=== PATIENT | male | born 1950 | race Caucasian/White ===

== ENCOUNTER 2020-07-15 14:09 | Outpatient (CLI) | payer MEDICARE, OTHER, SELFPAY | END 2020-07-15 14:10 | disposition home or self-care (01) | LOC: CHSLAB 14:16 | PROVIDERS: PCP Internal Medicine; Visit Provider Specialist | DX: C44.311 Basal cell carcinoma of skin of nose (principal) | CPT/HCPCS: 88305 ==

== ENCOUNTER 2020-09-11 08:28 | Outpatient (CLI) | payer MEDICARE, OTHER, SELFPAY ==
--- NOTE | ~2020-09-11 | US_ITS ---
US abdomen complete EXAMINATION: US Abdomen Complete INDICATION: Right upper quadrant abdominal pain PROCEDURE: Realtime High Resolution abdomen ultrasound. COMPARISON: No prior studies for comparison FINDINGS: Gallbladder surgically absent. Common bile duct measures 7 mm. Liver echotexture is increased, consistent with fatty infiltration.. Pancreas within normal limits. Pancreatic tail is obscured by bowel gas. Spleen is unremarkeable. Renal echotexture is within norm al limits bilaterally without hydronephrosis, contour deforming mass or renal stone. Right kidney steven sures 13.5 cm. Left kidney measures 13.6 cm. Visualized aspects of the aorta and IVC are within normal limits. Portal vein is patent. IMPRESSION: 1: Fatty infiltration of the liver. 2: Status post cholecystectomy with expected prominence of the common bile duct. Reviewed, dictated and finalized at location A. PING AND RECEIVING COORDINATOR IMPRESSION: 1: Fatty infiltration of the liver. 2: Status post cholecystectomy with expected prominence of the common bile vince t.
== END 2020-09-11 08:29 | disposition home or self-care (01) ==
PROVIDERS: PCP Internal Medicine; Visit Provider Internal Medicine
DX: R10.11 Right upper quadrant pain (principal); Z90.49 Acquired absence of other specified parts of digestive tract; K76.0 Fatty (change of) liver, not elsewhere classified
CPT/HCPCS: 76700

== ENCOUNTER 2021-02-07 16:52 | Emergency (ER) | payer MEDICARE, OTHER, SELFPAY ==
--- NOTE | ~2021-02-07 | CT_ITS ---
EXAMINATION: CT abdomen pelvis w con EXAM DATE: 02/07/2021 19:52 INDICATION: Abdominal distention. TECHNIQUE: Spiral CT of the abdomen and pelvis was performed following intravenous injection of 100 m L Omnipaque 350. Axial, coronal and sagittal images of the abdomen and pelvis were reviewed. The do se-length product (DLP) for this examination was 1548.19 mGy-cm. The exposure was tailored according to patient size (auto mA exposure control), and iterative reconstruction (ASIR) was used as addition al dose reduction technique. Comparison is made to prior examination from 10/01/2016. FINDINGS: The liver, spleen, adrenal glands and pancreas are unremarkable. There are cholecystectomy clips. Portal and splenic veins are patent. Kidneys enhance symmetrically. There is no hydronephr osis. The prostate is unremarkable. The bladder is unremarkable. There is no retroperitoneal or p elvic lymphadenopathy. There is mild scattered arteriosclerotic disease. Small bilateral inguinal f at-containing hernias. The appendix is normal. There is mild scattered colonic diverticulosis. There is no adjacent inflamm atory change to suggest diverticulitis. The stomach and small bowel are unremarkable. There is expec pepe amount of colonic stool. No free intraperitoneal gas. The heart is normal in size. There are no pericardial or pleural effusions. Mild basilar intralobular septal thickening, probably mild int erstitial lung disease. Mild basilar bronchiectasis. Bridging thoracic endplate osteophytes with k 12 principal yanelis demineralized appearance to lower thoracic vertebral body centrally. No cortical destruction. IMPRESSION: 1. No acute intra-abdominal findings. 2. Mild colonic diverticulosis. 3. Mild pulmonary fibrosis and bronchiectasis. Reviewed, dictated and finalized at location A.
[2021-02-07 16:55] VITALS: BP 161/104; PULSE 98; RESP 18; TEMP 36.1; O2SAT 99
[2021-02-07 18:37] VITALS: BP 166/105; PULSE 94; RESP 18; O2SAT 98
[2021-02-07 18:43] LABS: Basophils Absolute Auto 0.1 K/mm3 (0.0-0.1); Basophils Percent Auto 0.5 % (0.2-1.2); Eosinophils Absolute Auto 0.4 K/mm3 (0-0.3); Eosinophils Percent Auto 3.8 % (0-4.4); Hematocrit 43.3 % (42.0-52.0); Hemoglobin 13.5 g/dL (14.0-18.0); Immature Granulocyte Absolute 0.03 K/mm3 (0.00-0.031); Immature Granulocyte Percent A 0.3 % (0-0.5); Lymphocytes Absolute Auto 1.36 K/mm3 (0.9-3.2); Lymphocytes Percent Auto 13.9 % (18.3-44.2); Mean Corpuscular HGB Conc 31.2 g/dl (32-36); Mean Corpuscular Hemoglobin 25.9 pg (26-34); Mean Platelet Volume 11.5 fl (7.4-10.4); Monocytes Absolute Auto 1.2 K/mm3 (0.1-0.6); Monocytes Percent Auto 12.2 % (2.6-8.5); Neutrophils Absolute Auto 6.8 K/mm3 (1.3-6.7); Neutrophils Percent Auto 69.3 % (45.5-73.1); Platelet Count Result 229 k/mm3 (150-375); Red Blood Count 5.22 M/mm3 (4.6-6.20); Red Cell Distribution Width 14.8 % (11.5-14.5); White Blood Count 9.8 K/mm3 (4.5-10.0)
[2021-02-07 18:46] LABS: Add Urine Microscopic? YES; Appearance Urine Clear (Clear); Bilirubin Urine Negative (Negative); Blood Urine 1+ (Negative); Color Urine Yellow (Yellow); Glucose Urine UA Negative (Negative); Ketones Urine Negative (Negative); Leukocyte Esterase Ur Negative LEU/UL (Negative); Mucus Urine Rare /lpf; Nitrate Urine Negative (Negative); Protein Urine Negative (Negative); RBC Urine 0-2 /hpf (0-2); Specific Grav Ur 1.011 (1.001-1.035); Urobilinogen Urine Negative mg/dL (<2.0); WBC Urine 0-3 /hpf
[2021-02-07 18:54] LABS: Alanine Aminotransferase 36 U/L (4-50); Albumin Level 4.7 g/dL (3.5-5.1); Alkaline Phosphatase 109 U/L (38-126); Anion Gap 10 mmol/L (8-16); Aspartate Amino Transferase 68 U/L (17-59); Bilirubin,Total 0.8 mg/dL (0.2-1.3); Blood Urea Nitrogen 12 mg/dL (9-20); Calcium 9.7 mg/dL (8.4-10.2); Carbon Dioxide 26 mmol/L (22-30); Chloride 104 mmol/L (98-107); Estimated CRCL calculation 100 ml/min; Estimated Glomerular Filt Rate > 60; Glucose 103 mg/dL (75-110); Lipase 88 U/L (23-300); Potassium 4.1 mmol/L (3.4-5.0); Sodium 140 mmol/L (137-145)
--- NOTE | 2021-02-07 19:13 | PC.NURSE ---
Patient report received from MICAH Everett.Assumed care of patient at this time.
--- NOTE | 2021-02-07 20:08 | ED.NAVMDI ---
HPI - Nausea/Vomiting/Diarrhea General Chief complaint: Nausea/Vomiting/Diarrhea Stated complaint: return of bloating Time Seen by Provider: 02/07/21 18:43 Source: patient Mode of arrival: ambulatory Limitations: no limitations History of Present Illness HPI Narrative: 70-year-old male Presents with several days of a fluctuating chest bloated abdominal sensation He had loose stools at the onset but now has had no bowel movement for about a day and a half although he is passing gas He also reports that he is not eating much because he feels full quickly He says he has had episodes like this previously every couple of years which sometimes resolve if he vomits This is the first time it has happened since he had his gallbladder removed He does not have much in the way of pain No melena He is a non-smoker and he does not drink and takes very little in the way of NSAIDs He does take Nexium usually 3 or 4 times a week and Gas-X Related Data Home Medications Medication Instructions Recorded Confirmed esomeprazole magnesium [Nexium] 20 mg PO DAILY 02/07/21 Allergies Allergy/AdvReac Type Severity Reaction Status Date / Time No Known Allergies Allergy Unverified 02/07/21 18:33 Review of Systems Review of Systems: All systems reviewed & are unremarkable except as noted in HPI and below Constitutional: Constitutional: Reports no additional constitutional complaints, Denies chills, Denies fever(s) and Denies headache(s) Eyes: Eyes: Reports no additional eye complaints and Denies change in vision ENT: Denies headache(s) and Denies sore throat Cardiovascular: Cardiovascular: Denies chest pain and Denies dyspnea Respiratory: Respiratory: Denies cough and Denies dyspnea Gastrointestinal: Gastrointestinal: Denies abdominal pain, Reports bloating, Reports constipation, Reports diarrhea, Reports nausea and Denies vomiting Musculoskeletal: Musculoskeletal: Denies deformity, Denies arthralgias, Denies joint swelling and Denies numbness Integumentary/Breasts: Skin/Breast: Denies rash and Denies wounds Neurologic: Denies headache(s), Denies focal weakness and Denies numbness Psychiatric: Psychiatric: Reports no additional psychiatric complaints Endocrine: Endocrine: Reports no additional endocrine complaints Hematologic/Lymphatic: Hematologic/Lymphatic: Reports no additional hematologic/lymphatic complaints Allergic/Immunologic: Allergic/Immunologic: Reports no additional allergic/immunologic complaints [facility] Past Medical History Medical History (Updated 02/07/21 @ 20:15 by Uzair Barraza MD) Abdominal bloating Abnormal finding of blood chemistry, unspecified BMI 35.0-35.9,adult BMI 37.0-37.9, adult DJD (degenerative joint disease), multiple sites Elevated glucose Elevated LFTs Encounter for Medicare annual wellness exam Encounter for special screening examination for neoplasm of prostate Fatty liver GERD (gastroesophageal reflux disease) Hematuria, microscopic Hemorrhoid Hiatal hernia Hx of colonic polyps Hx of gallstones Hyperlipidemia Hypokalemia Ileus Iron deficiency anemia Nausea and vomiting 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 Vitamin D deficiency Surgical History Surgical History (Updated 10/31/19 @ 13:15 by Latesha Ramsey [facility]) H/O hemorrhoidectomy History of colonoscopy S/P cholecystectomy Family History Family History (Updated 10/31/19 @ 13:50 by Latesha Ramsey [facility]) Father Hypertension Family history of renal failure CHF (congestive heart failure) Sibling Diabetes mellitus Mother CHF (congestive heart failure) Social History Social History (Reviewed 10/19/19 @ 08:45 by Alexandrea Trinidad [facility]) Smoking status: Never smoker Alcohol intake: never Substance use: never Gender identity (if verbalized by the patient): Male Exam Const: General: cooperative and no acute distress Nutritional Appearance: obese Orientation/consciousness: patient
[2021-02-07 20:11] VITALS: BP 137/93; PULSE 83; RESP 18; O2SAT 100
[2021-02-07 20:32] VITALS: BP 137/93; PULSE 86; RESP 18; O2SAT 97
== END 2021-02-07 20:34 | disposition home or self-care (01) ==
PROVIDERS: Emergency Provider Emergency Medicine; PCP Internal Medicine
DX: R14.0 Abdominal distension (gaseous) (principal); K76.0 Fatty (change of) liver, not elsewhere classified; K21.9 Gastro-esophageal reflux disease without esophagitis; E78.5 Hyperlipidemia, unspecified
CPT/HCPCS: 36415; 74177; 80053; 81001; 83690; 85025; 99284; Q9967

== ENCOUNTER 2021-02-12 14:22 | Outpatient (CLI) | payer MEDICARE, OTHER, SELFPAY ==
[2021-02-16 06:06] LABS: Albumin 3.9 g/dL (3.8-4.8); Alpha 1 Globulin 0.3 g/dL (0.2-0.3); Alpha 2 Globulin 0.8 g/dL (0.5-0.9); Beta 1 Globulin 0.6 g/dL (0.4-0.6); Gamma Globulin 1.3 g/dL (0.8-1.7); Protein, Total 7.6 g/dL (6.1-8.1)
== END 2021-02-12 14:23 | disposition home or self-care (01) ==
LOC: ANHLAB 14:26
PROVIDERS: PCP Internal Medicine; Visit Provider Internal Medicine
DX: R77.9 Abnormality of plasma protein, unspecified (principal)
CPT/HCPCS: 36415; 84155; 84165

== ENCOUNTER 2021-02-14 10:48 | Outpatient (CLI) | payer MEDICARE, OTHER, SELFPAY ==
[2021-02-19 11:30] LABS: Creatinine, 24 Hr Urine 1.65 g/24 h (0.50-2.15); Total Protein/Creatinine Ratio 54 mg/g creat (<=114)
== END 2021-02-14 10:49 | disposition home or self-care (01) ==
LOC: ANHLAB 10:57
PROVIDERS: PCP Internal Medicine; Visit Provider Internal Medicine
DX: R77.9 Abnormality of plasma protein, unspecified (principal)
CPT/HCPCS: 81050; 82570; 84156; 84166

== ENCOUNTER 2021-02-24 15:02 | Outpatient (CLI) | payer MEDICARE, OTHER, SELFPAY ==
[2021-02-24 15:57] LABS: Add Urine Microscopic? NO; Appearance Urine Clear (Clear); Bilirubin Urine Negative (Negative); Blood Urine Negative (Negative); Color Urine Yellow (Yellow); Glucose Urine UA Negative (Negative); Ketones Urine Negative (Negative); Leukocyte Esterase Ur Negative LEU/UL (Negative); Nitrate Urine Negative (Negative); Protein Urine Negative (Negative); Specific Grav Ur 1.012 (1.001-1.035); Urobilinogen Urine Negative mg/dL (<2.0)
[2021-02-24 16:53] LABS: Cholesterol 202 mg/dL (0-200); HDL Direct 40 mg/dL; Triglycerides 184 mg/dL (<150)
[2021-02-24 17:04] LABS: LDL Cholesterol Direct 89 mg/dL
[2021-02-24 17:18] LABS: Iron 89 ug/dL (49-181)
[2021-02-24 17:24] LABS: Prostate Specific Antigen 5.7 ng/mL (< OR = 4.0)
[2021-02-24 17:28] LABS: Percent Iron Saturation 22 % (20-50)
[2021-02-24 17:39] LABS: Free T4 Free Thyroxine 0.72 ng/mL (0.78-2.19)
[2021-02-24 18:30] LABS: Hemoglobin A1C 5.3 % (<5.7)
[2021-02-27 10:25] LABS: Vitamin D 1,25 (OH)2 Total 36 pg/mL (18-72); Vitamin D2 1,25 (OH)2 <8 pg/mL; Vitamin D3 1,25 (OH)2 36 pg/mL
[2021-02-28 20:10] LABS: Homocysteine 10.8 umol/L (<11.4)
== END 2021-02-24 15:03 | disposition home or self-care (01) ==
LOC: ANHLAB 15:06
PROVIDERS: PCP Internal Medicine; Visit Provider Internal Medicine
DX: R73.09 Other abnormal glucose (principal); R79.9 Abnormal finding of blood chemistry, unspecified; D50.9 Iron deficiency anemia, unspecified; Z79.899 Other long term (current) drug therapy; R77.9 Abnormality of plasma protein, unspecified; Z12.5 Encounter for screening for malignant neoplasm of prostate; E55.9 Vitamin D deficiency, unspecified; R79.89 Other specified abnormal findings of blood chemistry; E78.2 Mixed hyperlipidemia
CPT/HCPCS: 36415; 80061; 81003; 82652; 82728; 83036; 83090; 83540; 83550; 84153; 84439; 84443; 86334; G0103

== ENCOUNTER 2021-05-06 13:30 | Outpatient (CLI) | payer MEDICARE, OTHER, SELFPAY ==
--- NOTE | ~2021-05-06 | CT_ITS ---
EXAMINATION: CT diagnostic chest w con DATE: 05/06/2021 14:58 INDICATION: Aortic root enlargement TECHNIQUE: Transaxial computed tomographic images of the chest were obtained after the administration of 75 cc of Omnipaque 350 intravenous contrast. The dose-length product (DLP) was 687.82 mGy-cm. Ite rative reconstruction was used. COMPARISON: None FINDINGS: There is fusiform dilation of the ascending aorta which measures up to 4.2 cm. No dissectio n is identified. No pathologically enlarged thoracic lymph nodes are identified. The heart size is no rmal. Calcified coronary artery atherosclerosis is noted. The lungs are free of focal airspace opacit ies. There are mild subpleural reticular and groundglass opacities. There is emphysema versus honeyco mbing medially in the lower lobes and right upper lobe. There is no pleural effusion or pneumothorax. Moderate bilateral gynecomastia is noted. The gallbladder is surgically absent. There are bridging o steophytes at multiple levels in the spine, consistent with diffuse idiopathic skeletal hyperostosis (DISH). IMPRESSION: 1. Fusiform dilation of the ascending aorta measuring up to 4.2 cm. 2. Mild chronic interstitial lung disease. Reviewed, dictated and finalized at location B.
[2021-05-06 14:49] LABS: Estimated Glomerular Filt Rate > 60
== END 2021-05-06 13:31 | disposition home or self-care (01) ==
PROVIDERS: PCP Internal Medicine; Visit Provider Internal Medicine
DX: I77.89 Other specified disorders of arteries and arterioles (principal); J84.9 Interstitial pulmonary disease, unspecified
CPT/HCPCS: 71260; Q9967

== ENCOUNTER 2021-05-18 07:40 | Outpatient (CLI) | payer MEDICARE, OTHER, SELFPAY ==
--- NOTE | 2021-05-18 08:01 | EST_ITS ---
Patient Info Name: Clem Capellan Age: 70 years : 1950 Gender: Male Ht: 72 in Wt: 250 lbs BSA: 2.44 m2 Exam Date: 05/18/2021 10:05 AM Exam Location: [facility] Stress Patient Status: Outpatient Admit Date: 05/18/2021 Staff Ordering Physician: Corey Angel MD Attending Provider: Corey Angel MD Exercise Technologist: Brittany Woodward RDCS Exercise Physician: Sushant Madisno MD Exam Type: CA stress test treadmill Study Info Indications R93.1 - Abnormal findings on diagnostic imaging of heart and coronary circulation A treadmill exercise stress test was performed. Summary 1. Exercise capacity fair to good at 6-10 METS. 2. Non diagnostic ECG changes at peak exercise which do not meet strict criteria for ischemia. Protocol: [facility] Stress ECG Details Stage: REST Duration (min): 1 min : 48 sec Speed (mph): 0.0 Grade (%): 0 HR (bpm): 62 SBP (mmHg): 139 DBP (mmHg): 86 METS: --- Stage: REST Duration (min): 11 min : 13 sec Speed (mph): 0.0 Grade (%): 0 HR (bpm): 79 SBP (mmHg): 139 DBP (mmHg): 86 METS: --- Stage: STAGE 1 Duration (min): 1 min : 0 sec Speed (mph): 1.7 Grade (%): 10 HR (bpm): 102 SBP (mmHg): 139 DBP (mmHg): 86 METS: --- Stage: STAGE 1 Duration (min): 2 min : 0 sec Speed (mph): 1.7 Grade (%): 10 HR (bpm): 112 SBP (mmHg): 139 DBP (mmHg): 86 METS: --- Stage: STAGE 1 Duration (min): 3 min : 0 sec Speed (mph): 1.7 Grade (%): 10 HR (bpm): 114 SBP (mmHg): 182 DBP (mmHg): 94 METS: --- Stage: STAGE 2 Duration (min): 1 min : 0 sec Speed (mph): 2.5 Grade (%): 12 HR (bpm): 127 SBP (mmHg): 182 DBP (mmHg): 94 METS: --- Stage: STAGE 2 Duration (min): 2 min : 0 sec Speed (mph): 2.5 Grade (%): 12 HR (bpm): 136 SBP (mmHg): 174 DBP (mmHg): 89 METS: --- Stage: STAGE 2 Duration (min): 3 min : 0 sec Speed (mph): 2.5 Grade (%): 12 HR (bpm): 140 SBP (mmHg): 174 DBP (mmHg): 89 METS: --- Stage: RECOVERY Duration (min): 0 min : 59 sec Speed (mph): 0.0 Grade (%): 0 HR (bpm): 116 SBP (mmHg): 174 DBP (mmHg): 88 METS: --- Stage: RECOVERY Duration (min): 1 min : 59 sec Speed (mph): 0.0 Grade (%): 0 HR (bpm): 92 SBP (mmHg): 174 DBP (mmHg): 88 METS: --- Stage: RECOVERY Duration (min): 2 min : 59 sec Speed (mph): 0.0 Grade (%): 0 HR (bpm): 87 SBP (mmHg): 163 DBP (mmHg): 90 METS: --- Stage: RECOVERY Duration (min): 3 min : 5 sec Speed (mph): 0.0 Grade (%): 0 HR (bpm): 89 SBP (mmHg): 163 DBP (mmHg): 90 METS: --- Rest HR: 79 bpm Peak HR: 140 bpm Rest Sys BP: 139 mmHg Peak Sys BP: 182 mmHg Max Pred HR: 151 bpm % Max Pred HR: 93 % Target HR: 128 bpm Max RPP: 25,480 bpm*mmHg Calero Score: 1 Target HR Summary:
--- NOTE | 2021-05-18 08:01 | ECHO_ITS ---
Patient Info Name: Clem Capellan Age: 70 years : 1950 Gender: Male Ht: 72 in Wt: 250 lbs BSA: 2.44 m2 HR: 70 bpm BP: 135 / 91 mmHg Heart Rhythm: Sinus Rhythm Technical Quality: Fair Exam Date: 05/18/2021 8:18 AM Exam Location: [facility] Pulmonary Patient Status: Outpatient Admit Date: 05/18/2021 Staff Ordering Physician: Corey Angel MD Senior Operator: Brittany Woodward RDCS Attending Provider: Corey Angel MD Referring Physician: Jeanne GRANT; Exam Type: CA echo doppler color flow Study Info Indications R93.8 - Abnormal findings on diagnostic imaging of other specified body structures Complete two-dimensional, color flow and Doppler transthoracic echocardiogram is performed. Summary 1. Complete two-dimensional, color flow and Doppler transthoracic echocardiogram is performed. 2. Left ventricular chamber dimension is normal. 3. Left ventricular systolic function is normal, estimated at 60-65%. 4. There is mildly increased left ventricular wall thickness. 5. The left ventricular diastolic function is grade I diastolic dysfunction. 6. Left atrial chamber dimension is mildly enlarged. 7. There is mild mitral valve regurgitation. 8. There is mild tricuspid valve regurgitation. 9. The aortic root size at the sinus of Valsalva is mildly dilated. Left Ventricle Left ventricular chamber dimension is normal. Left ventricular systolic function is normal, estimated at 60-65%. There is mildly increased left ventricular wall thickness. The left ventricular diastolic function is grade I diastolic dysfunction. Right Ventricle Right ventricular chamber dimension is normal. Right ventricular systolic function is normal. Left Atria Left atrial chamber dimension is mildly enlarged. Right Atria Right atrial chamber dimension is normal. Atrial Septum Intact interatrial septum visualized by color flow imaging. Aortic Valve The aortic valve is trileaflet. There is mild aortic valve sclerosis. There is no aortic valve stenosis. There is trace aortic valve regurgitation. Pulmonic Valve The pulmonic valve is normal. There is no pulmonic valve stenosis. There is trace pulmonic regurgitation. Mitral Valve The mitral valve has normal leaflets. There is no mitral valve stenosis. There is mild mitral valve regurgitation. Tricuspid Valve The tricuspid valve leaflets are normal. There is no significant tricuspid valve stenosis. There is mild tricuspid valve regurgitation. No pulmonary hypertension, estimated pulmonary arterial systolic pressure is 25 mmHg. Pericardium/Pleural The pericardium appears normal. There is no pericardial effusion. Inferior Vena Cava Normal inferior vena cava with >50% collapse upon inspiration consistent with normal right atrial pressure, 10 mmHg. Aorta The aortic root size at the sinus of Valsalva is mildly dilated. Left Ventricular Outflow Tract Name Value Normal LVOT 2D LVOT Diameter 2.2 cm LVOT Doppler LVOT Peak Gradient 7 mmHg LVOT Mean Gradient 4 mmHg LVOT VTI
== END 2021-05-18 07:41 | disposition home or self-care (01) ==
PROVIDERS: PCP Internal Medicine; Visit Provider Internal Medicine
DX: R93.1 Abnormal findings on diagnostic imaging of heart and coronary circulation (principal); I77.89 Other specified disorders of arteries and arterioles; I36.1 Nonrheumatic tricuspid (valve) insufficiency; I34.0 Nonrheumatic mitral (valve) insufficiency
CPT/HCPCS: 93017; 93306

== ENCOUNTER 2022-04-15 17:45 | Outpatient (CLI) | payer MEDICARE, OTHER, SELFPAY ==
[2022-04-21 10:51] LABS: Lyme Disease Ab (IgM), Blot Negative (Negative); Lyme Disease Ab(IgG), Blot Negative (Negative)
== END 2022-04-15 17:46 | disposition home or self-care (01) ==
LOC: ANHLAB 17:51
PROVIDERS: PCP Internal Medicine; Visit Provider Internal Medicine
DX: T14.90XA Injury, unspecified, initial encounter (principal); W57.XXXA Bitten or stung by nonvenomous insect and other nonvenomous arthropods, initial encounter
CPT/HCPCS: 36415; 86617

== ENCOUNTER 2022-06-01 14:39 | Outpatient (CLI) | payer MEDICARE, OTHER, SELFPAY ==
[2022-06-05 16:05] LABS: Lyme Disease Ab (IgM), Blot Negative (Negative); Lyme Disease Ab(IgG), Blot Negative (Negative)
== END 2022-06-01 14:40 | disposition home or self-care (01) ==
PROVIDERS: PCP Internal Medicine; Visit Provider Internal Medicine
DX: T14.90XA Injury, unspecified, initial encounter (principal); W57.XXXA Bitten or stung by nonvenomous insect and other nonvenomous arthropods, initial encounter
CPT/HCPCS: 36415; 86617

== ENCOUNTER 2022-08-09 14:09 | Outpatient (CLI) | payer MEDICARE, OTHER, SELFPAY ==
[2022-08-09 15:41] LABS: Basophils Absolute Auto 0.1 K/mm3 (0.0-0.1); Basophils Percent Auto 0.9 % (0.2-1.2); Eosinophils Absolute Auto 0.5 K/mm3 (0-0.3); Eosinophils Percent Auto 5.8 % (0-4.4); Hematocrit 43.4 % (42.0-52.0); Immature Granulocyte Absolute 0.02 K/mm3 (0.00-0.031); Immature Granulocyte Percent A 0.3 % (0-0.5); Lymphocytes Absolute Auto 1.64 K/mm3 (0.9-3.2); Lymphocytes Percent Auto 21.3 % (18.3-44.2); Mean Corpuscular HGB Conc 32.3 g/dl (32-36); Mean Corpuscular Volume 86.8 fl (80-100); Mean Platelet Volume 11.5 fl (7.4-10.4); Monocytes Absolute Auto 1.1 K/mm3 (0.1-0.6); Monocytes Percent Auto 14.5 % (2.6-8.5); Neutrophils Absolute Auto 4.4 K/mm3 (1.3-6.7); Neutrophils Percent Auto 57.2 % (45.5-73.1); Platelet Count Result 191 k/mm3 (150-375); Red Cell Distribution Width 14.4 % (11.5-14.5); White Blood Count 7.7 K/mm3 (4.5-10.0)
[2022-08-09 16:01] LABS: Alanine Aminotransferase 32 U/L (6-50); Albumin Level 4.6 g/dL (3.5-5.1); Alkaline Phosphatase 110 U/L (38-126); Anion Gap 13 mmol/L (8-16); Aspartate Amino Transferase 47 U/L (17-59); Bilirubin,Total 0.5 mg/dL (0.2-1.3); Blood Urea Nitrogen 9 mg/dL (9-20); Calcium 9.1 mg/dL (8.4-10.2); Carbon Dioxide 22 mmol/L (22-30); Chloride 105 mmol/L (98-107); Cholesterol 130 mg/dL (0-200); Estimated Glomerular Filt Rate > 60; Glucose 95 mg/dL (65-110); HDL Direct 42 mg/dL; Potassium 3.9 mmol/L (3.4-5.0); Sodium 140 mmol/L (137-145); Triglycerides 212 mg/dL (<150)
[2022-08-09 16:12] LABS: LDL Cholesterol Direct 49 mg/dL
[2022-08-09 16:16] LABS: Hemoglobin A1C 5.7 % (<5.7)
[2022-08-09 16:26] LABS: Prostate Specific Antigen 6.2 ng/mL (< OR = 4.0)
[2022-08-09 18:25] LABS: Free T4 Free Thyroxine 0.68 ng/mL (0.78-2.19)
== END 2022-08-09 14:10 | disposition home or self-care (01) ==
LOC: ANHLAB 14:11
PROVIDERS: PCP Internal Medicine; Visit Provider Internal Medicine
DX: Z13.29 Encounter for screening for other suspected endocrine disorder (principal); Z79.899 Other long term (current) drug therapy; E66.9 Obesity, unspecified; E78.5 Hyperlipidemia, unspecified; Z12.5 Encounter for screening for malignant neoplasm of prostate; R73.09 Other abnormal glucose
CPT/HCPCS: 36415; 80053; 80061; 83036; 84153; 84439; 84443; 85025; G0103

== ENCOUNTER 2023-05-26 01:02 | Day surgery (SDC) | payer MEDICARE, OTHER, SELFPAY ==
[2023-05-12 12:28] VITALS: BMI 33.5
--- NOTE | 2023-05-25 15:24 | PM.HPGS ---
History of Present Illness History of Present Illness Consent: Risks, benefits, and alternatives have been discussed and questions answered. Patient agrees to proceed with procedure. Chief complaint: GERD,Abdom Distension,Hx colon polyps, Narrative: Clem Capellan is a 72 year old male referred for investigation of persistent reflux symptoms. He also has history of colon polyps, he had 4 polyps removed when he has last colonoscopy about 6 years ago. Review of Systems Review of Systems: All systems reviewed & are unremarkable except as noted in HPI and below PMFSH Past Medical History Medical History Abdominal bloating Abnormal finding of blood chemistry, unspecified Abnormal finding of diagnostic imaging Acute pain of right shoulder Anxiety Aortic arch aneurysm Aortic root enlargement Ascending aortic aneurysm Basal cell carcinoma BMI 34.0-34.9,adult BMI 35.0-35.9,adult BMI 37.0-37.9, adult BMI 38.0-38.9,adult Change in vision Colon cancer screening DJD (degenerative joint disease), multiple sites Elevated glucose Elevated LFTs Elevated serum protein level Encounter for Medicare annual wellness exam Encounter for Medicare annual wellness exam Encounter for special screening examination for neoplasm of prostate Fatty liver Follow up GERD (gastroesophageal reflux disease) Hematuria Hematuria, microscopic Hemorrhoid Hiatal hernia Hx of colonic polyps Hx of gallstones Hyperlipidemia Hypokalemia Ileus Insomnia Iron deficiency anemia Nausea and vomiting 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 Sinus drainage Tick bite Vitamin D deficiency Surgical History Surgical History H/O hemorrhoidectomy History of colonoscopy S/P cholecystectomy Family History Family History Father Hypertension Family history of renal failure CHF (congestive heart failure) Sibling Diabetes mellitus Mother CHF (congestive heart failure) Social History Social History Smoking status: Never smoker Second hand tobacco smoke exposure: No Alcohol intake: never Substance use: never Substance use type: does not use Lack of Transportation: No Lack of Food: Never True Current Housing: I Have Housing Concerned About Future Housing: No Difficulty Paying Gas/Electric Bills: No Difficulty Paying for Meds: No Currently Unemployed: No Education: Master's Degree or Higher Difficulty w/ Childcare or Family Care: No Living arrangements: with family Gender identity (if verbalized by the patient): Male Spiritual care concerns: No Meds Home Medications and Allergies Home Medications Medication Instructions Recorded Confirmed Type esomeprazole magnesium 20 mg 20 mg PO DAILY 02/07/21 05/26/23 History capsule,delayed release (Nexium) cholecalciferol (vitamin D3) 50 2,000 unit PO DAILY 09/28/22 05/26/23 History mcg (2,000 unit) tablet (Vitamin D3) azelastine 137 mcg (0.1 %) nasal 2 spray intranasal Q12H #30 mL 12/16/22 05/26/23 Rx spray aerosol lorazepam 0.5 mg tablet 0.5 mg PO TID PRN anxiety #45 tabs 12/17/22 05/26/23 Rx icosapent ethyl 1 gram capsule See Rx Instructions .Route 01/03/23 05/26/23 Rx .COMPLEX #360 caps rosuvastatin 40 mg tablet See Rx Instructions .Route 01/03/23 05/26/23 Rx .COMPLEX #90 tabs metoprolol succinate 25 mg See Rx Instructions .Route 01/31/23 05/26/23 Rx tablet,extended release 24 hr .COMPLEX #90 tabs Allergies Allergy/AdvReac Type Severity Reaction Status Date / Time No Known Allergies Allergy Verified 05/26/23 06:53 Exam Const: General: alert Orientation/consciousness: patient oriented x3 Resp: Auscultation: clear to auscultation bilaterally Cardio: Rhythm: regular rhythm GI: GI Palp: Yes Soft to palpation and N
[2023-05-26 06:54] VITALS: BP 118/86; PULSE 64; RESP 18; TEMP 36.1; O2SAT 99; BMI 34.8
[2023-05-26] MEDS: LACTATED RINGERS 1,000 ML 150 ML IV CONT (07:12)
--- NOTE | 2023-05-26 07:25 | PM.HPGS ---
History of Present Illness History of Present Illness Consent: Risks, benefits, and alternatives have been discussed and questions answered. Patient agrees to proceed with procedure. Chief complaint: GERD,Abdom Distension,Hx colon polyps, Narrative: Clem Capellan is a 72 year old male with history of polyps. Several polyps removed about 5 years ago. [facility] Past Medical History Medical History Abdominal bloating Abnormal finding of blood chemistry, unspecified Abnormal finding of diagnostic imaging Acute pain of right shoulder Anxiety Aortic arch aneurysm Aortic root enlargement Ascending aortic aneurysm Basal cell carcinoma BMI 34.0-34.9,adult BMI 35.0-35.9,adult BMI 37.0-37.9, adult BMI 38.0-38.9,adult Change in vision Colon cancer screening DJD (degenerative joint disease), multiple sites Elevated glucose Elevated LFTs Elevated serum protein level Encounter for Medicare annual wellness exam Encounter for Medicare annual wellness exam Encounter for special screening examination for neoplasm of prostate Fatty liver Follow up GERD (gastroesophageal reflux disease) Hematuria Hematuria, microscopic Hemorrhoid Hiatal hernia Hx of colonic polyps Hx of gallstones Hyperlipidemia Hypokalemia Ileus Insomnia Iron deficiency anemia Nausea and vomiting 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 Sinus drainage Tick bite Vitamin D deficiency Surgical History Surgical History H/O hemorrhoidectomy History of colonoscopy S/P cholecystectomy Family History Family History Father Hypertension Family history of renal failure CHF (congestive heart failure) Sibling Diabetes mellitus Mother CHF (congestive heart failure) Social History Social History Smoking status: Never smoker Second hand tobacco smoke exposure: No Alcohol intake: never Substance use: never Substance use type: does not use Lack of Transportation: No Lack of Food: Never True Current Housing: I Have Housing Concerned About Future Housing: No Difficulty Paying Gas/Electric Bills: No Difficulty Paying for Meds: No Currently Unemployed: No Education: Master's Degree or Higher Difficulty w/ Childcare or Family Care: No Living arrangements: with family Gender identity (if verbalized by the patient): Male Spiritual care concerns: No Meds Home Medications and Allergies Home Medications Medication Instructions Recorded Confirmed Type esomeprazole magnesium 20 mg 20 mg PO DAILY 02/07/21 05/26/23 History capsule,delayed release (Nexium) cholecalciferol (vitamin D3) 50 2,000 unit PO DAILY 09/28/22 05/26/23 History mcg (2,000 unit) tablet (Vitamin D3) azelastine 137 mcg (0.1 %) nasal 2 spray intranasal Q12H #30 mL 12/16/22 05/26/23 Rx spray aerosol lorazepam 0.5 mg tablet 0.5 mg PO TID PRN anxiety #45 tabs 12/17/22 05/26/23 Rx icosapent ethyl 1 gram capsule See Rx Instructions .Route 01/03/23 05/26/23 Rx .COMPLEX #360 caps rosuvastatin 40 mg tablet See Rx Instructions .Route 01/03/23 05/26/23 Rx .COMPLEX #90 tabs metoprolol succinate 25 mg See Rx Instructions .Route 01/31/23 05/26/23 Rx tablet,extended release 24 hr .COMPLEX #90 tabs Allergies Allergy/AdvReac Type Severity Reaction Status Date / Time No Known Allergies Allergy Verified 05/26/23 06:53 Vital Signs Vital Signs - 24 hr 05/26/23 06:54 Temperature 36.1 C L Pulse Rate 64 Respiratory Rate 18 Blood Pressure 118/86 Pulse Oximetry 99 Oxygen Delivery Room Air
--- NOTE | 2023-05-26 07:31 | WPDANESEPPF ---
Anes - Initial Pre Proc Eval Procedure: Operation Date: 05/26/23 08:00 Proposed Procedures p Esophagogastroduodenoscopy & Colonoscopy - Shoaib Heart MD Date/Time: 05/26/23 07:31 Surgeon: Shoaib Heart MD Pre Op Diagnosis: GERD,Abdom Distension,Hx colon polyps, Patient Data Age: 72 Gender: M Height: 1.8 m Weight: 113.4 kg Last Vital Signs Temp 97.0 F L 05/26/23 06:54 Pulse 64 05/26/23 06:54 Resp 18 05/26/23 06:54 BP 118/86 05/26/23 06:54 Pulse Ox 99 05/26/23 06:54 O2 Del Method Room Air 05/26/23 06:54 Allergies Allergy/AdvReac Type Severity Reaction Status Date / Time No Known Allergies Allergy Verified 05/26/23 06:53 Home Medications Medication Instructions Recorded Confirmed Type esomeprazole magnesium 20 mg 20 mg PO DAILY 02/07/21 05/26/23 History capsule,delayed release (Nexium) cholecalciferol (vitamin D3) 50 2,000 unit PO DAILY 09/28/22 05/26/23 History mcg (2,000 unit) tablet (Vitamin D3) azelastine 137 mcg (0.1 %) nasal 2 spray intranasal Q12H #30 mL 12/16/22 05/26/23 Rx spray aerosol lorazepam 0.5 mg tablet 0.5 mg PO TID PRN anxiety #45 tabs 12/17/22 05/26/23 Rx icosapent ethyl 1 gram capsule See Rx Instructions .Route 01/03/23 05/26/23 Rx .COMPLEX #360 caps rosuvastatin 40 mg tablet See Rx Instructions .Route 01/03/23 05/26/23 Rx .COMPLEX #90 tabs metoprolol succinate 25 mg See Rx Instructions .Route 01/31/23 05/26/23 Rx tablet,extended release 24 hr .COMPLEX #90 tabs Patient hx anesthesia problems: none Family hx anesthesia problems: none Results Review: All pre-operative results and documents have been reviewed as part of the pre-operative evaluation. [facility] Past Medical History Medical History Abdominal bloating Abnormal finding of blood chemistry, unspecified Abnormal finding of diagnostic imaging Acute pain of right shoulder Anxiety Aortic arch aneurysm Aortic root enlargement Ascending aortic aneurysm Basal cell carcinoma BMI 34.0-34.9,adult BMI 35.0-35.9,adult BMI 37.0-37.9, adult BMI 38.0-38.9,adult Change in vision Colon cancer screening DJD (degenerative joint disease), multiple sites Elevated glucose Elevated LFTs Elevated serum protein level Encounter for Medicare annual wellness exam Encounter for Medicare annual wellness exam Encounter for special screening examination for neoplasm of prostate Fatty liver Follow up GERD (gastroesophageal reflux disease) Hematuria Hematuria, microscopic Hemorrhoid Hiatal hernia Hx of colonic polyps Hx of gallstones Hyperlipidemia Hypokalemia Ileus Insomnia Iron deficiency anemia Nausea and vomiting On half-way drug therapy Sinus drainage Tick bite Vitamin D deficiency Surgical History Surgical History H/O hemorrhoidectomy History of colonoscopy S/P cholecystectomy Family History Family History Father Hypertension Family history of renal failure CHF (congestive heart failure) Sibling Diabetes mellitus Mother CHF (congestive heart failure) Social History Social History Smoking status: Never smoker Second hand tobacco smoke exposure: No Alcohol intake: never Substance use: never Substance use type: does not use Lack of Transportation: No Lack of Food: Never True Current Housing: I Have Housing Concerned About Future Housing: No Difficulty Paying Gas/Electric Bills: No Difficulty Paying for Meds: No Currently Unemployed: No Education: Master's Degree or Higher Difficulty w/ Childcare or Family Care: No Living arrangements: with family Gender identity (if verbalized by the patient): Male Spiritual care concerns: No Anes - Eval Final PreProcedure Day of Procedure 05/26/23 07:31
--- NOTE | 2023-05-26 07:55 | SUR.OPER ---
EGD: [id number] COLON: Start 809
[2023-05-26 08:27] VITALS: BP 90/63; PULSE 61; RESP 16; O2SAT 97
[2023-05-26 08:37] VITALS: BP 107/65; PULSE 60; RESP 15; O2SAT 97
[2023-05-26 08:47] VITALS: BP 109/72; PULSE 63; RESP 17; O2SAT 99
== END 2023-05-26 09:07 | disposition home or self-care (01) ==
PROVIDERS: PCP Internal Medicine; Visit Provider Internal Medicine Gastroenterology
PROC: 0DJ08ZZ Inspection of Upper Intestinal Tract, Via Natural or Artificial Opening Endoscopic (ICD-10-PCS; CPT 43235; principal; 2023-05-26 08:00)
DX: Z12.11 Encounter for screening for malignant neoplasm of colon (principal); K64.8 Other hemorrhoids; K57.30 Diverticulosis of large intestine without perforation or abscess without bleeding; K63.89 Other specified diseases of intestine; K22.2 Esophageal obstruction; K21.9 Gastro-esophageal reflux disease without esophagitis; Z86.010 Personal history of colon polyps; K76.0 Fatty (change of) liver, not elsewhere classified; F41.9 Anxiety disorder, unspecified; E78.5 Hyperlipidemia, unspecified; D50.9 Iron deficiency anemia, unspecified; E55.9 Vitamin D deficiency, unspecified
CPT/HCPCS: 45380; 43249; 88305; C1726; J2704; J7120

== ENCOUNTER 2023-10-20 17:36 | Emergency (ER) | payer MEDICARE, OTHER, SELFPAY ==
--- NOTE | ~2023-10-20 | XR_ITS ---
EXAMINATION: XR chest 2V DATE: 10/20/2023 18:01 INDICATION: Tachycardia. Palpitations. TECHNIQUE: Frontal and lateral views of the chest were obtained. COMPARISON: Chest 2 views 08/29/2019, chest CT 05/06/2021 FINDINGS: There are chronic reticular opacities in the lower lung zones. No pleural effusion or pneum othorax. The heart size is normal. IMPRESSION: 1. Stable mild chronic interstitial lung disease. Reviewed, dictated and finalized at location E. INE MAINTENANCE MECHANIC
--- NOTE | ~2023-10-20 | CT_ITS ---
EXAMINATION: CTA chest PE protocol DATE: 10/20/2023 19:34 INDICATION: Dyspnea on exertion. Palpitations. TECHNIQUE: Computed tomography angiography (CTA) of the chest was performed with 100 mL Omnipaque-350 intravenous contrast timed to evaluate the pulmonary arteries. Coronal maximum intensity projection 3D-reconstructions were created by the technologist. Automated exposure control and iterative reconst ruction technique were employed. The dose-length product was 879.36 mGy-cm. COMPARISON: Chest CT 05/06/2021 FINDINGS: There is mild atelectasis bilaterally. There is peripheral septal thickening in the inferio r lungs. No bronchiectasis. There is honeycombing in the paramediastinal lower lobes and right upper lobe. No pleural effusion. The heart size is normal. No pericardial effusion. There are calcification s aortic valve. There are coronary artery calcifications. There is no pulmonary embolus. There are ch anges of cholecystectomy. There is bilateral gynecomastia. There are bridging endplate osteophytes at multiple levels in the spine, consistent with diffuse idiopathic skeletal hyperostosis (DISH). There is mild chronic anterior wedging of multiple vertebral bodies. Thoracic kyphosis is noted. IMPRESSION: 1. No pulmonary embolus. 2. Stable chronic interstitial lung disease in a pattern of usual interstitial pneumonia (UIP). Reviewed, dictated and finalized at location E. CARRIER
--- NOTE | 2023-10-20 17:37 | ECG_ITS ---
Measurements Intervals [place] Rate: 102 P: 37 OK: 156 QRS: -25 QRSD: 106 T: 55 QT: 356 QTc: 465 Interpretive Statements SINUS TACHYCARDIA DELAYED PRECORDIAL R/S TRANSITION LEFT VENTRICULAR HYPERTROPHY WITH ST-T CHANGE MINIMAL Q WAVES- HIGH LATERAL LEADS NONSPECIFIC T-WAVE ABNORMALITY BORDERLINE ECG COMPARED TO ECG 08/29/2019 12:06:27 SINUS TACHYCARDIA NOW PRESENT Electronically Signed On 10-20-2023 18:58:12 EMPLOYMENT DIRECTOR by Bandar Pulido D.O.
[2023-10-20 17:40] VITALS: BP 194/102; PULSE 108; RESP 20; TEMP 36.8; O2SAT 99
--- NOTE | 2023-10-20 18:13 | ED.ARRPALP ---
HPI - Arrhythmia/Palpitations General Chief Complaint: Arrhythmia/Palpitations Stated Complaint: irregular heart rate Time Seen by Provider: 10/20/23 17:58 Source: patient Mode of arrival: ambulatory Limitations: no limitations History of Present Illness HPI narrative: Patient is a 72 y/o male, with PMH of known thoracic aortic aneurysm monitored yearly, who presents to the ED with c/o palpitations. Patient reports approximately 30 minutes prior to arrival he was sitting down at his house and received any notification from his Apple I-watch that he had been resting for 10 minutes with a heart rate greater than 100 beats per minute. Patient states his heart rate is typically around 60-70 beats per minute. Patient began feeling somewhat lightheaded and noticed mild dyspnea with exertion, described as though he became slightly winded when walking across his house. He contacted his primary care doctor and was referred to the ED for further evaluation. Patient feels better currently and states he has otherwise felt well today. Denies any chest pain/tightness, current shortness breath, syncope, headache, vision changes, lower extremity pain or swelling. Denies previous Hx of blood clots, cardiac issues. Related Data Home Medications Medication Instructions Recorded Confirmed esomeprazole magnesium 20 mg 20 mg PO DAILY 02/07/21 06/28/23 capsule,delayed release (Nexium) cholecalciferol (vitamin D3) 50 2,000 unit PO DAILY 09/28/22 06/28/23 mcg (2,000 unit) tablet (Vitamin D3) Allergies Allergy/AdvReac Type Severity Reaction Status Date / Time No Known Allergies Allergy Verified 06/28/23 11:23 Review of Systems Review of Systems: CONSTITUTIONAL: Denies fever, chills, or sweats. ENT: Denies rhinorrhea, congestion, sore throat. CARDIOVASCULAR: See HPI. RESPIRATORY: See HPI. GASTROINTESTINAL: Denies abdominal pain, nausea, vomiting. MUSCULOSKELETAL: Denies back pain, extremity pain, myalgia. NEUROLOGIC: See HPI. All systems reviewed & are unremarkable except as noted in HPI and below PMFSH Past Medical History Medical History Abdominal bloating Abnormal finding of blood chemistry, unspecified Abnormal finding of diagnostic imaging Acute pain of right shoulder Anxiety Aortic arch aneurysm Aortic root enlargement Ascending aortic aneurysm Basal cell carcinoma BMI 34.0-34.9,adult BMI 35.0-35.9,adult BMI 37.0-37.9, adult BMI 38.0-38.9,adult Change in vision Colon cancer screening DJD (degenerative joint disease), multiple sites Elevated glucose Elevated LFTs Elevated serum protein level Encounter for Medicare annual wellness exam Encounter for Medicare annual wellness exam Encounter for special screening examination for neoplasm of prostate Fatty liver Follow up GERD (gastroesophageal reflux disease) Hematuria Hematuria, microscopic Hemorrhoid Hiatal hernia Hx of colonic polyps Hx of gallstones Hyperlipidemia Hypokalemia Ileus Insomnia Iron deficiency anemia Nausea and vomiting 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 Sinus drainage Tick bite Vitamin D deficiency Surgical History Surgical History H/O hemorrhoidectomy History of colonoscopy S/P cholecystectomy Family History Family History Father Hypertension Family history of renal failure CHF (congestive heart failure) Sibling Diabetes mellitus Mother CHF (congestive heart failure) Social History Social History Smoking status: Never smoker Second hand tobacco smoke exposure: No Alcohol intake: never Substance use: never Substance use type: does not use Lack of Transportation: No Lack of Food: Never True Current Housing: I Have Housing Concerned About Future Housing: No Diff
[2023-10-20 18:34] LABS: Basophils Absolute Auto 0.1 K/mm3 (0.0-0.1); Basophils Percent Auto 0.8 % (0.2-1.2); Eosinophils Absolute Auto 0.3 K/mm3 (0-0.3); Eosinophils Percent Auto 4.2 % (0-4.4); Hematocrit 45.2 % (42.0-52.0); Hemoglobin 14.3 g/dL (14.0-18.0); Immature Granulocyte Absolute 0.03 K/mm3 (0.00-0.031); Immature Granulocyte Percent A 0.4 % (0-0.5); Lymphocytes Absolute Auto 1.44 K/mm3 (0.9-3.2); Lymphocytes Percent Auto 20.3 % (18.3-44.2); Mean Corpuscular HGB Conc 31.6 g/dl (32-36); Mean Corpuscular Volume 88.5 fl (80-100); Mean Platelet Volume 11.6 fl (7.4-10.4); Monocytes Percent Auto 13.5 % (2.6-8.5); Neutrophils Absolute Auto 4.3 K/mm3 (1.3-6.7); Neutrophils Percent Auto 60.8 % (45.5-73.1); Platelet Count Result 166 k/mm3 (150-375); Red Blood Count 5.11 M/mm3 (4.6-6.20); Red Cell Distribution Width 13.6 % (11.5-14.5); White Blood Count 7.1 K/mm3 (4.5-10.0)
[2023-10-20] MEDS: ASPIRIN 81 MG CHEWABLE TABLET 324 MG PO (18:40)
[2023-10-20] MEDS: SODIUM CHLORIDE 0.9% IV 1,000 ML 999 ML IV CONT (18:40)
[2023-10-20 18:42] VITALS: PULSE 102
[2023-10-20 18:46] LABS: INR 0.9
[2023-10-20 18:48] LABS: Magnesium 1.9 mg/dL (1.6-2.3)
[2023-10-20 18:54] LABS: Alanine Aminotransferase 22 U/L (6-50); Albumin Level 4.2 g/dL (3.5-5.1); Alkaline Phosphatase 111 U/L (38-126); Anion Gap 12 mmol/L (8-16); Aspartate Amino Transferase 41 U/L (17-59); Bilirubin,Total 0.5 mg/dL (0.2-1.3); Blood Urea Nitrogen 10 mg/dL (9-20); Calcium 9.1 mg/dL (8.4-10.2); Carbon Dioxide 22 mmol/L (22-30); Chloride 107 mmol/L (98-107); Estimated CRCL calculation 111 ml/min; Estimated Glomerular Filt Rate > 60; Glucose 107 mg/dL (65-110); Lipase 96 U/L (23-300); Sodium 141 mmol/L (137-145)
[2023-10-20 19:06] LABS: Troponin I < 0.012 ng/mL (0.000-0.034)
[2023-10-20 19:41] VITALS: BP 134/91; PULSE 90; RESP 13; O2SAT 100
[2023-10-20 19:58] LABS: Free T4 Free Thyroxine 0.81 ng/mL (0.78-2.19)
[2023-10-20 20:33] VITALS: BP 119/86; PULSE 91; RESP 15; O2SAT 99
[2023-10-20 21:32] VITALS: BP 116/92; PULSE 86; RESP 20; O2SAT 98
[2023-10-20 22:06] LABS: Troponin I < 0.012 ng/mL (0.000-0.034)
[2023-10-20 22:23] VITALS: BP 126/90; PULSE 85; RESP 14; O2SAT 96
== END 2023-10-20 22:26 | disposition home or self-care (01) ==
PROVIDERS: Emergency Medicine; Emergency Provider Physician Assistant; PCP Internal Medicine
DX: R00.2 Palpitations (principal); R00.0 Tachycardia, unspecified; R94.6 Abnormal results of thyroid function studies; I71.20 Thoracic aortic aneurysm, without rupture, unspecified; E78.5 Hyperlipidemia, unspecified; E55.9 Vitamin D deficiency, unspecified; D50.9 Iron deficiency anemia, unspecified; K21.9 Gastro-esophageal reflux disease without esophagitis; Z85.828 Personal history of other malignant neoplasm of skin; Z86.010 Personal history of colon polyps; Z90.49 Acquired absence of other specified parts of digestive tract; J84.9 Interstitial pulmonary disease, unspecified; I51.7 Cardiomegaly; R94.31 Abnormal electrocardiogram [ECG] [EKG]
CPT/HCPCS: 36415; 71046; 71275; 80053; 83690; 83735; 84439; 84443; 84484; 85025; 85380; 85610; 85730; 93005; 96360; 99284; A9270; J7030; Q9967

== ENCOUNTER 2024-03-15 10:39 | Outpatient (CLI) | payer MEDICARE, OTHER, SELFPAY ==
[2024-03-15 11:12] LABS: Basophils Absolute Auto 0.1 K/mm3 (0.0-0.1); Basophils Percent Auto 0.9 % (0.2-1.2); Eosinophils Absolute Auto 0.4 K/mm3 (0-0.3); Eosinophils Percent Auto 6.4 % (0-4.4); Hemoglobin 13.9 g/dL (14.0-18.0); Immature Granulocyte Absolute 0.01 K/mm3 (0.00-0.031); Immature Granulocyte Percent A 0.2 % (0-0.5); Lymphocytes Percent Auto 20.2 % (18.3-44.2); Mean Corpuscular HGB Conc 33.1 g/dl (32-36); Mean Corpuscular Hemoglobin 29.5 pg (26-34); Mean Corpuscular Volume 89.2 fl (80-100); Mean Platelet Volume 11.4 fl (7.4-10.4); Monocytes Absolute Auto 0.8 K/mm3 (0.1-0.6); Monocytes Percent Auto 13.8 % (2.6-8.5); Neutrophils Absolute Auto 3.2 K/mm3 (1.3-6.7); Neutrophils Percent Auto 58.5 % (45.5-73.1); Platelet Count Result 179 k/mm3 (150-375); Red Blood Count 4.71 M/mm3 (4.6-6.20); Red Cell Distribution Width 13.1 % (11.5-14.5); White Blood Count 5.4 K/mm3 (4.5-10.0)
[2024-03-15 11:25] LABS: Alanine Aminotransferase 19 U/L (6-50); Albumin Level 4.7 g/dL (3.5-5.1); Alkaline Phosphatase 90 U/L (38-126); Anion Gap 7 mmol/L (4-12); Aspartate Amino Transferase 31 U/L (17-59); Bilirubin,Total 0.7 mg/dL (0.2-1.3); Blood Urea Nitrogen 10 mg/dL (9-20); Carbon Dioxide 28 mmol/L (22-30); Chloride 105 mmol/L (98-107); Cholesterol 106 mg/dL (0-200); Estimated Glomerular Filt Rate > 60; Glucose 97 mg/dL (65-110); HDL Direct 43 mg/dL; Sodium 140 mmol/L (137-145); Triglycerides 106 mg/dL (<150)
[2024-03-15 11:37] LABS: LDL Cholesterol Direct 48 mg/dL
[2024-03-15 11:56] LABS: Prostate Specific Antigen 9.9 ng/mL (< OR = 4.0)
[2024-03-15 12:21] LABS: Hemoglobin A1C 5.4 % (<5.7)
[2024-03-15 12:38] LABS: Free T4 Free Thyroxine 0.81 ng/mL (0.78-2.19); Vitamin D 25 Hydroxy 48.7 ng/mL
== END 2024-03-15 10:40 | disposition home or self-care (01) ==
LOC: ANHLAB 10:42
PROVIDERS: PCP Internal Medicine; Visit Provider Internal Medicine
DX: D50.9 Iron deficiency anemia, unspecified (principal); E55.9 Vitamin D deficiency, unspecified; E78.5 Hyperlipidemia, unspecified; R53.83 Other fatigue; R73.09 Other abnormal glucose; R94.5 Abnormal results of liver function studies; R97.20 Elevated prostate specific antigen [PSA]; Z12.5 Encounter for screening for malignant neoplasm of prostate; Z79.899 Other long term (current) drug therapy; E66.9 Obesity, unspecified; K21.9 Gastro-esophageal reflux disease without esophagitis; R31.29 Other microscopic hematuria
CPT/HCPCS: 36415; 80053; 80061; 82306; 83036; 84153; 84439; 84443; 85025; G0103

== ENCOUNTER 2024-05-17 11:38 | Outpatient (CLI) | payer MEDICARE, OTHER, SELFPAY ==
[2024-05-17 12:04] LABS: Kit Draw Collected
== END 2024-05-17 11:39 | disposition home or self-care (01) ==
PROVIDERS: PCP Internal Medicine; Visit Provider Internal Medicine
DX: R97.20 Elevated prostate specific antigen [PSA] (principal)
CPT/HCPCS: 36415

== ENCOUNTER 2024-06-01 12:38 | Outpatient (CLI) | payer MEDICARE, OTHER, SELFPAY ==
--- NOTE | ~2024-06-01 | PE_ITS ---
EXAMINATION: PET_PETPSMAST_PT DATE: 06/01/2024 15:29 INDICATION: Malignant neoplasm of the prostate TECHNIQUE: 5.476 mCi of Illucix Ga-68([id number]) was administered i.v. Low dose computed mindy graphy (CT) images were acquired from the base of the brain to the base of the brain to the proximal thighs for attenuation correction and anatomic localization. Positron emission tomography (PET) image s were acquired in the same distribution beginning 97 minutes after injection. Images including fused PET/CT images were reconstructed in axial, coronal, and sagittal planes. Automated exposure control technique was employed. The dose-length product was 1308.96mGy-cm. COMPARISON: None FINDINGS: Head/neck: Typical pattern of symmetric physiologic increased activity in the lacrimal, parotid and submandibula r glands as well as along the mucosa of the nasal and oral cavities, pharynx and hypopharynx. Complet e opacification of the left maxillary sinus which demonstrate thickened sclerotic crowley consistent wi th chronic sinusitis. Small mucous retention cyst right maxillary sinus. No pathologically enlarged c ervical lymphadenopathy or suspicious foci of increased uptake in the visualized head or neck. Chest: Mild dependent and basilar atelectasis in the bilateral lower lobes. There is mild emphysema versus h oneycombing at the paramediastinal posterior basilar segments of the bilateral lower lobes. No suspic ious pulmonary nodules or pleural effusion. Heart size is normal. Atherosclerotic coronary artery mary cification. No pericardial effusion. Small sliding-type hiatal hernia. Mild ascending thoracic aortic aneurysm measuring up to 4.4 cm in maximal diameter. No pathologically enlarged or PSMA avid lymphad enopathy. Abdomen/pelvis/proximal thighs: Physiologic renal accumulation and excretion of activity in the kidneys, bladder and along portions o f ureters. There is a region of increased PSV may uptake with maximal SUV of 7.3 at the posterior pro state likely representing the site of the reported primary prostate cancer. Normal degree and slightl y heterogenous pattern of increased uptake throughout the liver and spleen without radiologic correla te or dominant PSMA avid lesion. Cholecystectomy clips the gallbladder fossa. The pancreas and bilate ral adrenal glands are normal. Moderate uptake scattered throughout the bowels with typical duodenal and proximal jejunal predominance and without radiologic correlate, also likely physiologic. Normal a ppendix. No other abnormal foci of increased uptake or pathologically enlarged lymphadenopathy in the abdomen, pelvis or proximal thighs. Musculoskeletal: Bridging osteophytes anteriorly and across the spinous processes posteriorly at levels throughout the mid to lower thoracic spine. Moderate cervical and moderate to severe lumbar spondylosis. No suspici ous lytic, blastic or abnormally PSMA avid bone lesions to suggest metastatic disease. IMPRESSION: 1. Region of increased PSV may uptake at the posterior prostate consistent with primary prostate canc er. No evident metastatic disease. 2. 4.4 cm diameter ascending thoracic aortic aneurysm. Reviewed, dictated and finalized at location A. IMPRESSION: 1. Region of increased PSV may uptake at the posterior prostate consistent with primary prostate cancer. No evident metastatic disease. 2. 4.4 cm diameter ascending thoracic aortic aneurysm.
== END 2024-06-01 12:39 | disposition home or self-care (01) ==
LOC: ANHIMG 12:40
PROVIDERS: PCP Internal Medicine; Visit Provider Urology
DX: C61 Malignant neoplasm of prostate (principal); I71.21 Aneurysm of the ascending aorta, without rupture
CPT/HCPCS: 78815; A9596

== ENCOUNTER 2024-09-23 11:26 | Observation (INO) | payer MEDICARE, OTHER, SELFPAY ==
[2024-09-23] VITALS (7 sets, daily range): BP systolic 116–156; BP diastolic 83–95; PULSE 92–114; RESP 16–20; TEMP 36.1–36.6; O2SAT 96–100
--- NOTE | ~2024-09-23 | CT_ITS ---
EXAMINATION: CTA chest PE protocol DATE: 09/23/2024 13:01 INDICATION: Chest pain and shortness of breath TECHNIQUE: Computed tomography (CT) pulmonary angiogram of the chest was performed with 100 mL Omnipa que-350 intravenous contrast. Additional 3D reconstructions utilizing coronal maximum intensity proje ction (MIP) were performed. Automated exposure control and iterative reconstruction technique were em ployed. The dose-length product was 913.26 mGy-cm. COMPARISON: 10/20/2023 FINDINGS: There is mild motion and streak artifact mildly decreasing sensitivity and specificity in some of the smaller subsegmental pulmonary arteries. There is a subtle central pulmonary arterial filling defect in the right middle lobar pulmonary arteries consistent with pulmonary embolism. No other pulmonary emboli identified. Again seen are ground glass opacities with irregular septal line thickening and as sociated paramediastinal honeycombing peripherally in the bilateral lower lobes consistent with mild usual interstitial pneumonia (UIP) pattern chronic interstitial lung disease. No pulmonary edema, pne umonia or pleural effusion. Heart size is normal. No evident leftward bowing of the ventricular septu m to suggest right heart strain. Atherosclerotic coronary artery calcification and aortic valve calci fication. No pericardial effusion. Unchanged fusiform ascending thoracic aortic aneurysm measuring up to 4.5 cm in maximal diameter. No pathologically enlarged thoracic lymphadenopathy. Small sliding-ty pe hiatal hernia. Cholecystectomy clips at the gallbladder fossa. Mild bilateral gynecomastia. Mild t horacic kyphosis with chronic mild anterior wedging of a few mid and lower thoracic vertebral bodies and bridging osteophytes at multiple levels consistent with diffuse idiopathic skeletal hyperostosis (DISH). IMPRESSION: 1. Pulmonary emboli with single pulmonary arterial filling defect in the right middle lobar pulmonary artery. 2. Stable UIP pattern chronic interstitial lung disease in the lower lobes. 3. Unchanged 4.5 cm (from ascending thoracic aortic aneurysm. 4. Small sliding-type hiatal hernia. Reviewed, dictated and finalized at location A. 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
--- NOTE | ~2024-09-23 | XR_ITS ---
EXAMINATION: XR chest 2V DATE: 09/23/2024 12:46 INDICATION: Intermittent sharp left-sided chest pain TECHNIQUE: PA and lateral views of the chest were obtained. COMPARISON: Chest radiograph and CT dated 10/20/2023 FINDINGS: Again seen are chronic reticular opacities at the bilateral lower lungs. No new airspace opacities, p ulmonary edema, pleural effusion or pneumothorax. Heart size is normal. Tortuous thoracic aorta. Mode rate thoracic spondylosis with mild kyphosis and chronic mild anterior wedging of several mid to lowe r thoracic vertebral bodies. There are also bridging osteophytes at multiple levels consistent with d iffuse idiopathic skeletal hyperostosis (DISH). IMPRESSION: 1. Stable bibasilar chronic interstitial lung disease with usual interstitial pneumonia (UIP) pattern on prior CT. Reviewed, dictated and finalized at location A. 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 Stable bibasilar chronic interstitial lung disease with usual interstitial p neumonia (UIP) pattern on prior CT.
--- NOTE | ~2024-09-23 | US_ITS ---
EXAMINATION: US venous doppler [facility] DATE: 09/23/2024 14:38 INDICATION: Chest pain and shortness of breath with a personal history of prostate cancer and DVT richie pected clinically TECHNIQUE: Grayscale ultrasound images without and with compression and Doppler ultrasound images of the bilateral lower extremity veins were obtained. COMPARISON: None. FINDINGS: The visualized portions of right common femoral vein, profunda (deep) femoral vein, femoral vein, pop liteal vein, peroneal veins, posterior tibial veins, and greater saphenous vein outflow are patent. The visualized portions of left common femoral vein, profunda femoral vein, femoral vein, popliteal v ein, peroneal veins, posterior tibial veins, and greater saphenous vein outflow are patent. IMPRESSION: 1. No deep venous thrombosis detected within the bilateral lower extremities, as detailed above. Reviewed, dictated and finalized at location A. 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
--- NOTE | 2024-09-23 11:35 | ECG_ITS ---
Test Date: 2024-09-23 11:40:19 Measurements Intervals [place] Rate: 94 P: 32 TN: 167 QRS: -26 QRSD: 98 T: 44 QT: 363 QTc: 456 Interpretive Statements SINUS RHYTHM POSSIBLE LEFT ATRIAL ENLARGEMENT [-0.1mV P WAVE IN V1/V2] BORDERLINE LEFT AXIS DEVIATION [QRS AXIS < -20] POSSIBLE LEFT VENTRICULAR HYPERTROPHY [VOLTAGE CRITERIA PLUS LAE OR QRS WIDENING] ABNORMAL ECG Electronically Signed On 09-23-2024 13:49:59 LEGAL CONTRACTS SPECIALIST by Sushant Madison M.D.
[2024-09-23 11:59] LABS: Basophils Percent Auto 0.3 % (0.2-1.2); Eosinophils Absolute Auto 0.1 K/mm3 (0-0.3); Eosinophils Percent Auto 2.3 % (0-4.4); Hematocrit 37.2 % (42.0-52.0); Hemoglobin 12.2 g/dL (14.0-18.0); Immature Granulocyte Absolute 0.02 K/mm3 (0.00-0.031); Immature Granulocyte Percent A 0.3 % (0-0.5); Immature Platelet Fraction Pct 4.3 % (0.9-11.2); Lymphocytes Percent Auto 4.9 % (18.3-44.2); Mean Corpuscular HGB Conc 32.8 g/dl (32-36); Mean Corpuscular Hemoglobin 30.1 pg (26-34); Mean Corpuscular Volume 91.9 fl (80-100); Mean Platelet Volume 10.7 fl (7.4-10.4); Monocytes Absolute Auto 0.8 K/mm3 (0.1-0.6); Monocytes Percent Auto 12.5 % (2.6-8.5); Neutrophils Absolute Auto 4.9 K/mm3 (1.3-6.7); Neutrophils Percent Auto 79.7 % (45.5-73.1); Platelet Count Result 114 k/mm3 (150-375); Red Blood Count 4.05 M/mm3 (4.6-6.20); White Blood Count 6.2 K/mm3 (4.5-10.0)
[2024-09-23 12:10] LABS: Alanine Aminotransferase 22 U/L (6-50); Albumin Level 4.4 g/dL (3.5-5.1); Alkaline Phosphatase 119 U/L (38-126); Anion Gap 4 mmol/L (4-12); Aspartate Amino Transferase 28 U/L (17-59); Bilirubin,Total 0.6 mg/dL (0.2-1.3); Blood Urea Nitrogen 17 mg/dL (9-20); Carbon Dioxide 29 mmol/L (22-30); Chloride 105 mmol/L (98-107); Estimated CRCL calculation 124 ml/min; Estimated Glomerular Filt Rate > 60; Glucose 100 mg/dL (65-110); Lipase 243 U/L (23-300); Potassium 3.8 mmol/L (3.4-5.0); Sodium 138 mmol/L (137-145)
[2024-09-23 12:16] LABS: INR 0.9; Partial Thromboplastin Time 24.4 Seconds (22.3-36.8); Prothrombin Time 12.2 Seconds (11.1-14.7)
[2024-09-23] MEDS: ASPIRIN 81 MG CHEWABLE TABLET 324 MG PO (12:20)
[2024-09-23 12:21] LABS: Troponin I < 0.012 ng/mL (0.000-0.034)
--- NOTE | 2024-09-23 12:46 | ED_ITS ---
HPI - Chest Pain General Chief Complaint: Chest Pain Stated Complaint: intermittent L. chest pain starting overnight Time Seen by Provider: 09/23/24 12:10 Source: patient, RN notes reviewed and old records reviewed Mode of arrival: ambulatory Limitations: no limitations History of Present Illness HPI narrative: This is a 73 year old male with history of prostate CAncer, hypertension, hyperlipidemia who presents for evaluation of chest pain. Patient states he has been having intermittent starp pains to focal area to left chest for 2 weeks. HE reports this pain last for seconds and resolves. HE has not had the pain in 5 hours. He is concerned because he takes prednisone, hormone shots and a prescription for his cancer that puts him at risk for heart attack. He also reports shortness of breath with going up stairs. He denies chest pain currently. He denies history of DVT/PE. HE denies leg swelling or calf pain. Related Data Home Medications ?Medication ?Instructions ?Recorded ?Confirmed ?Last Taken ?Type esomeprazole magnesium 20 mg 20 mg PO DAILY 02/07/21 06/15/24 Unknown History capsule,delayed release (Nexium) cholecalciferol (vitamin D3) 50 2,000 unit PO DAILY 09/28/22 06/15/24 Unknown History mcg (2,000 unit) tablet (Vitamin D3) Allergies Allergy/AdvReac Type Severity Reaction Status Date / Time No Known Allergies Allergy Verified 09/23/24 12:15 Review of Systems 2 Review of Systems: All systems reviewed & are unremarkable except as noted in HPI and below PMFSH Past Medical History Medical History Prostate cancer Sinus drainage BMI 34.0-34.9,adult Insomnia Anxiety Aortic arch aneurysm BMI 38.0-38.9,adult Hematuria Acute pain of right shoulder Tick bite Ascending aortic aneurysm Aortic root enlargement Change in vision Abnormal finding of diagnostic imaging Basal cell carcinoma Colon cancer screening Follow up Elevated serum protein level Elevated glucose Hyperlipidemia Hx of colonic polyps Encounter for special screening examination for neoplasm of prostate Vitamin D deficiency Iron deficiency anemia Abnormal finding of blood chemistry, unspecified DJD (degenerative joint disease), multiple sites Encounter for Medicare annual wellness exam BMI 35.0-35.9,adult Fatty liver Ileus On 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 inspector drug therapy Hematuria, microscopic Hypokalemia Elevated LFTs Hx of gallstones BMI 37.0-37.9, adult Abdominal bloating Nausea and vomiting Hemorrhoid Hiatal hernia GERD (gastroesophageal reflux disease) Surgical History Surgical History S/P cholecystectomy H/O hemorrhoidectomy History of colonoscopy Family History Family History Father Hypertension Family history of renal failure CHF (congestive heart failure) Sibling Diabetes mellitus Mother CHF (congestive heart failure) Social History Social History Smoking status: Never smoker Second hand tobacco smoke exposure: No Alcohol intake: never Substance use: never Substance use type: does not use Lack of Transportation: No Lack of Food: Never True Current Housing: I Have Housing Concerned About Future Housing: No Difficulty Paying Gas/Electric Bills: No Difficulty Paying for Meds: No Currently Unemployed: No Education: Master's Degree or Higher Difficulty w/ Childcare or Family Care: No Living arrangements: with family Gender identity (if verbalized by the patient): Male Spiritual care concerns: No Exam 2 Const: General: no acute distress and alert Nutritional Appearance: well nourished Orientation/consciousness: patient oriented x3 Limitations: no limitations HENMT: Head: normal to inspection Eyes: EOM: EOMs intact bilaterally Chest: Chest palpation & inspection: normal inspection of the chest and no tenderness Resp: Effort & Inspection: normal respiratory effort Auscultation: clear to auscultation bilaterally Cardio: Rate: regular rate Rhythm: regular rhythm Heart sounds: no murmurs GI: GI Palp: Yes Soft to palpation, No Tenderness to palpation present (GI), No Guarding due to palpation present (GI) and No Rigid due to palpation A uscultation: normal bowel sounds Skin: General skin exam: normal color Rashes: no rashes Neuro: General: patient oriented x3 and moves all extremities Extrem: General: normal to inspection, no clubbing, cyanosis or edema and no pedal edema Other: no calf tenderness Psych: Mental Status: mental status grossly normal Affect: normal affect Attitude: cooperative Course Reevaluation(s) Reevaluation #1: I Discussed with patient that testing shows pulmonary emboli and that he will be admitted for further evaluation. Class IV high risk for pulmonary emboli severity index Date: 09/23/24 Time: 14:00 Consultations Consultation #1: I Discussed case with Nayeli who accepts patient to hospitalist service for treatment of PE with high risk for complications. Date: 09/23/24 Time: 14:01 Vital Signs Vital signs: Vital Signs Temperature 97.9 F 09/23/24 11:28 Pulse Rate 95 09/23/24 11:28 Respiratory Rate 18 09/23/24 11:28 Blood Pressure 156/95 H 09/23/24 11:28 Pulse Oximetry 100 09/23/24 11:28 Oxygen Delivery Room Air 09/23/24 11:28 Temperature 97.9 F 09/23/24 11:28 Pulse Rate 99 09/23/24 12:31 Respiratory Rate 16 09/23/24 12:15 Blood Pressure 154/94 H 09/23/24 12:15 Pulse Oximetry 100 09/23/24 12:15 Oxygen Delivery Room Air 09/23/24 12:13 MDM - Chest Pain MDM Narrative Medical decision making narrative: PAtient with prostate cancer presents with chest pain. Chest pain protocol was placed in triage. Patient high risk for PE so I ordered CTA chest which returned positive for PE.. HE is high risk given age and cancer for complications so will obs for evaluation. Lovenox ordered. Hospitalist accepts . PAtient understands he will be admitted. Differential Diagnosis Differential diagnosis: Likely fracture of rib, unstable angina pectoris, atypical chest pain, costochondritis, chest pain and other (PE, aortic aneurysm) Medical Records Data Attestation: I reviewed the patient's medical records. Lab Data Attestation: I reviewed the patient's lab results. 09/23/24 11:45 09/23/24 11:45 Labs: Lab Results 09/23/24 09/23/24 Range/Units 11:45 14:52 WBC 6.2 (4.5-10.0) K/mm3 RBC 4.05 L (4.6-6.20) M/mm3 Hgb 12.2 L (14.0-18.0) g/dL Hct 37.2 L (42.0-52.0) % MCV 91.9 (80-100) fl MCH 30.1 (26-34) pg MCHC 32.8 (32-36) g/dl RDW 14.0 (11.5-14.5) % Plt Count 114 L (150-375) k/mm3 MPV 10.7 H (7.4-10.4) fl Immature Gran % (Auto) 0.3 (0-0.5) % Neut % (Auto) 79.7 H (45.5-73.1) % Lymph % (Auto) 4.9 L (18.3-44.2) % [place] % (Auto) 12.5 H (2.6-8.5) % Eos % (Auto) 2.3 (0-4.4) % Baso % (Auto) 0.3 (0.2-1.2) % Lymph # (Auto) 0.30 L (0.9-3.2) K/mm3 [place] # (Auto) 0.8 H (0.1-0.6) K/mm3 Eos # (Auto) 0.1 (0-0.3) K/mm3 Baso # (Auto) 0.0 (0.0-0.1) K/mm3 Abs Immat Gran (auto) 0.02 (0.00-0.031) K/mm3 Absolute Neuts (auto) 4.9 (1.3-6.7) K/mm3 Absolute Nucleated RBC 0.000 (0.0-0.012) K/mm3 Nucleated RBC % 0.0 (0.0-0.2) % % Immature Plt Fraction 4.3 (0.9-11.2) % PT 12.2 (11.1-14.7) Seconds INR 0.9 APTT 24.4 (22.3-36.8) Seconds Sodium 138 (137-145) mmol/L Potassium 3.8 (3.4-5.0) mmol/L Chloride 105 (98-107) mmol/L Carbon Dioxide 29 (22-30) mmol/L Anion Gap 4 (4-12) mmol/L BUN 17 (9-20) mg/dL Creatinine 0.60 L (0.7-1.3) mg/dL Estim Creat Clear Calc 124 ml/min Estimated GFR > 60 (59 - ) Glucose 100 (65-110) mg/dL Calcium 9.0 (8.4-10.2) mg/dL Total Bilirubin 0.6 (0.2-1.3) mg/dL AST 28 (17-59) U/L ALT 22 (6-50) U/L Alkaline Phosphatase 119 (38-126) U/L Troponin I < 0.012 Pending (0.000-0.034) ng/mL Total Protein 8.0 (6.3-8.2) g/dL Albumin 4.4 (3.5-5.1) g/dL Lipase 243 (23-300) U/L Imaging Data Radiologist's impression: ITS Impressions Chest X-Ray 09/23/24 12:52 IMPRESSION: 1. Stable bibasilar chronic interstitial lung disease with usual interstitial pneumonia (UIP) pattern on prior CT. Chest CTA 09/23/24 13:15 IMPRESSION: 1. Pulmonary emboli with single pulmonary arterial filling defect in the right middle lobar pulmonary artery. 2. Stable UIP pattern chronic interstitial lung disease in the lower lobes. 3. Unchanged 4.5 cm (from ascending thoracic aortic aneurysm. 4. Small sliding-type hiatal hernia. Venous Doppler Study 09/23/24 14:42 IMPRESSION: 1. No deep venous thrombosis detected within the bilateral lower extremities, as detailed above. ECG Data EKG #1: Attestation: I personally reviewed and interpreted this ECG as follows: ECG completion date: 09/23/24 ECG completion time: 11:40 EKG Interpretation: normal rate, sinus rhythm, no ST changes and left axis Critical Care Time Critical Care Time Critical Care Time: Yes Total Critical Care Time: 35 Discharge Plan Discharge Clinical Impression: Pulmonary emboli Qualifiers: Chronicity: acute Acute cor pulmonale presence: without acute cor pulmonale Patient Disposition: Still a Patient Condition: Serious Quality HEART score for chest pain patients History: slightly suspicious ECG: normal Age: > or = to 65 years Risk factors: 1 or 2 risk factors Troponin: < or = to 1x normal limit Heart score: 3
--- NOTE | 2024-09-23 14:44 | P.HP_ITS ---
H&P: HPI History of Present Illness Date/Time: 09/23/24 14:44 Chief Complaint: Shortness of breath Narrative: 73-year-old male with history of prostate cancer, hypertension, hyperlipidemia and ascending aortic aneurysm, presents to the hospital with shortness of breath. Patient states that he has had chest pain for about the last 2 weeks with chest pain a couple seconds and then resolves it is sharp in nature. Patient states that he came into the hospital because he is concerned that he is a high risk for heart attack due to steroids, hormones, and cancer medications. Patient has increased shortness of breath with activity. Patient also complains of congestion Patient's cardiac workup was negative. Laboratory work in the ED is unremarkable. CTA of the chest showed Pulmonary emboli with single pulmonary arterial filling defect in the right middle lobar pulmonary artery. Stable aortic aneurysm, hiatal hernia. Patient was given aspirin and weight based Lovenox in the emergency. Review of Systems Review of Systems: 12 systems were reviewed and are negativ e except for as per HPI. [facility] Past Medical History Medical History Prostate cancer Sinus drainage BMI 34.0-34.9,adult Insomnia Anxiety Aortic arch aneurysm BMI 38.0-38.9,adult Hematuria Acute pain of right shoulder Tick bite Ascending aortic aneurysm Aortic root enlargement Change in vision Abnormal finding of diagnostic imaging Basal cell carcinoma Colon cancer screening Follow up Elevated serum protein level Elevated glucose Hyperlipidemia Hx of colonic polyps Encounter for special screening examination for neoplasm of prostate Vitamin D deficiency Iron deficiency anemia Abnormal finding of blood chemistry, unspecified DJD (degenerative joint disease), multiple sites Encounter for Medicare annual wellness exam BMI 35.0-35.9,adult Fatty liver Ileus On long line teamster drug therapy Hematuria, microscopic Hypokalemia Elevated LFTs Hx of gallstones BMI 37.0-37.9, adult Abdominal bloating Nausea and vomiting Hemorrhoid Hiatal hernia GERD (gastroesophageal reflux disease) Surgical History Surgical History S/P cholecystectomy H/O hemorrhoidectomy History of colonoscopy Family History Family History Father Hypertension Family history of renal failure CHF (congestive heart failure) Sibling Diabetes mellitus Mother CHF (congestive heart failure) Social History Social History Smoking status: Never smoker Second hand tobacco smoke exposure: No Alcohol intake: never Substance use: never Substance use type: does not use Do You Feel Safe in your Home?: Yes Lack of Transportation: No Lack of Food: Never True Current Housing: I Have Housing Concerned About Future Housing: No Difficulty Paying Gas/Electric Bills: No Difficulty Paying for Meds: No Currently Unemployed: No Education: Master's Degree or Higher Difficulty w/ Childcare or Family Care: No Living arrangements: with family Gender identity (if verbalized by the patient): Male Spiritual care concerns: No Meds Home Medications and Allergies Home Medications ?Medication ?Instructions ?Recorded ?Confirmed ?Type cholecalciferol (vitamin D3) 50 2,000 unit PO DAILY 09/28/22 09/23/24 History mcg (2,000 unit) tablet (Vitamin D3) rosuvastatin 20 mg tablet 20 mg PO DAILY #90 tabs 04/02/24 09/23/24 Rx icosapent ethyl 1 gram capsule See Rx Instructions .Route 05/25/24 09/23/24 Rx .COMPLEX #360 caps metoprolol succinate 25 mg See Rx Instructions .Route 08/28/24 09/23/24 Rx tablet,extended release 24 hr .COMPLEX #90 tabs abiraterone 250 mg tablet 1,000 mg PO HS 09/23/24 09/23/24 History docusate sodium 100 mg capsule 100 mg PO BID 09/23/24 09/23/24 History (Colace) prednisone 5 mg tablet 5 mg PO BID 09/23/24 09/23/24 History psyllium (Hydrocil Instant oral 1 packet PO DAILY 09/23/24 09/23/24 History packet) tamsulosin 0.4 mg capsule 0.4 mg PO BID 09/23/24 09/23/24 History trazodone 50 mg tablet 50 mg PO QHS insomnia 09/23/24 09/23/24 History Allergies Allergy/AdvReac Type Severity Reaction Status Date / Time No Known Allergies Allergy Verified 09/23/24 12:15 Vital Signs Vital Signs - 24 hr 09/23/24 11:28 09/23/24 12:13 09/23/24 12:15 Temperature 97.9 F Pulse Rate 95 92 Respiratory Rate 18 16 Blood Pressure 156/95 H 154/94 H Pulse Oximetry 100 100 100 Oxygen Delivery Room Air Room Air 09/23/24 12:31 Temperature Pulse Rate 99 Respiratory Rate Blood Pressure Pulse Oximetry Oxygen Delivery Exam Narrative: General: well appearing, appears stated age. HEENT: normocephalic, atraumatic. Mucous membranes moist. EOMI, PERRLA, bilateral sclera anicteric, no conjunctival injection. Neck supple without JVD, lymphadenopathy, or bruit. Respiratory: clear to ascultation bilaterally. No rales/rhonic/wheezes. Tachypneic Cardiovascular: Regular rate and rhythm, normal S1-S2 upon ascultation. No murmurs, rubs, or clicks. PMI is nondisplaced, capillary refill less than 3 second. Abdomen: Soft, round, no pulsatile masses, nondistended and nontender. No rebound, no guarding. No CVA tenderness, no hepatosplenomegaly. Bowel sounds present to all four quadrants. No high pitch or tinkling sounds, resonant to percussion. Extremities: No cyanosis, clubbing, or edema present. Pulses are palpable 2/2. Active ROM to all four extremities. Neuro: Alert and orientated x 4. PERRLA. Cranial nerves 2-12 intact without focal deficit. Skin: Warm, dry, and intact, without rash, erythema, or lesion. Psych: pleasant, cooperative, normal speech, normal affect, no hallucinations, no dysarthia H&P: Results Labs Labs: Short CBC 09/23/24 Range/Units 11:45 WBC 6.2 (4.5-10.0) K/mm3 Hgb 12.2 L (14.0-18.0) g/dL Hct 37.2 L (42.0-52.0) % Plt Count 114 L (150-375) k/mm3 BMP 09/23/24 11:45 Sodium 138 Potassium 3.8 Chloride 105 Carbon Dioxide 29 BUN 17 Creatinine 0.60 L Glucose 100 Calcium 9.0 Cardiac Enzymes 09/23/24 Range/Units 11:45 Troponin I < 0.012 (0.000-0.034) ng/mL Liver Function 09/23/24 Range/Units 11:45 Total Bilirubin 0.6 (0.2-1.3) mg/dL AST 28 (17-59) U/L ALT 22 (6-50) U/L Alkaline Phosphatase 119 (38-126) U/L Albumin 4.4 (3.5-5.1) g/dL Assessment and Plan Assessment and plan (1) Pulmonary embolism: Code(s): I26.99 - Other pulmonary embolism without acute cor pulmonale Status: Acute Assessment and Plan: Pulmonary emboli with single pulmonary arterial filling defect in the right middle lobar pulmonary artery. Weight based Lovenox Venous Doppler study Trend until still flat Echocardiogram pending CBC, PTT and INR in the a.m. (2) Prostate cancer: Code(s): C61 - Malignant neoplasm of prostate Status: Acute Assessment and Plan: Continue Flomax and abiraterone (3) Shortness of breath: Code(s): R06.02 - Shortness of breath Status: Acute Assessment and Plan: Likely due to pulmonary embolism Influenza a, B, RSV and COVID pending Afrin (4) Aortic arch aneurysm: Code(s): I71.22 - Aneurysm of the aortic arch, without rupture Status: Acute Assessment and Plan: Stable on CT (5) Iron deficiency anemia: Qualifiers: Iron deficiency anemia type: unspecified iron deficiency Qualified Code(s): D50.9 - Iron deficiency anemia, unspecified Code(s): D50.9 - Iron deficiency anemia, unspecified Status: Acute Assessment and Plan: Not on home iron Plan Continue home sleeping pills trazodone Quality VTE Prophylaxis VTE prophylaxis: mechanical ordered and pharmacologic ordered Hospitalist MIPS Advance Care Plan I have confirmed that the patient's Advanced Care Plan is present, code status is documented, or surrogate decision maker is listed in patient medical record.: Yes Medication Reconciliation I have utilized all available resources to obtain, update and review the patients current medications (includes all prescriptions, OTC, herbals, canna bis, and nutritional supplements).: Yes
[2024-09-23] MEDS: ENOXAPARIN 120 MG/0.8 ML SYRINGE SUB-Q ×2 (15:23→22:34)
[2024-09-23 15:26] LABS: Troponin I < 0.012 ng/mL (0.000-0.034)
--- NOTE | 2024-09-23 16:39 | ADMGEN ---
This patient, Clem Capellan, was admitted to 3 Medical Room 343-01. Report received from MICAH Perez. Patient/family oriented to hospital policies and general routines including ID bracelet, bed and alarms, visiting hours, pain management, procedures, bathroom and other care routines, personal items, smoking policy, room service/diet, and visiting hours. Information on how to activate the Rapid Response Team has been discussed. Patient/Family are encouraged to report perceived risks to care and to ask questions if they do not understand what they are told or what they should do.
[2024-09-23] MEDS: ACETAMINOPHEN 325 MG TABLET 650 MG PO (16:55)
[2024-09-23] MEDS: DOCUSATE SODIUM 100 MG CAPSULE PO (16:55)
[2024-09-23 17:39] LABS: Troponin I < 0.012 ng/mL (0.000-0.034)
[2024-09-23] MEDS: TAMSULOSIN HCL 0.4 MG CAPSULE PO (18:34)
[2024-09-23] MEDS: predniSONE 5 MG TABLET PO (18:34)
[2024-09-23] MEDS: traZODone HCL 50 MG TABLET 100 MG PO (22:34)
[2024-09-23] MEDS: OXYMETAZOLINE HCL 0.05% NAS 15 ML BTL (*BKC) 1 SPRAY NASAL (22:38)
[2024-09-24] VITALS (12 sets, daily range): BP systolic 117–154; BP diastolic 68–86; PULSE 67–91; RESP 18; TEMP 36.4–36.9; O2SAT 95–97
[2024-09-24] MEDS: HYDROcodone/acetaminophen (*CRX) 5-325 MG TABLET 1 TAB PO (01:56)
[2024-09-24 02:48] LABS: Influenza A QL RT-PCR Negative (Negative); Influenza B QL RT-PCR Negative (Negative); RSV RNA, RT-PCR Negative (Negative); SARS-CoV-2 RNA PCR Negative (Negative)
[2024-09-24 06:01] LABS: Basophils Percent Auto 0.4 % (0.2-1.2); Eosinophils Absolute Auto 0.1 K/mm3 (0-0.3); Eosinophils Percent Auto 2.4 % (0-4.4); Hematocrit 35.1 % (42.0-52.0); Hemoglobin 11.4 g/dL (14.0-18.0); Immature Granulocyte Absolute 0.01 K/mm3 (0.00-0.031); Immature Granulocyte Percent A 0.2 % (0-0.5); Lymphocytes Absolute Auto 0.31 K/mm3 (0.9-3.2); Lymphocytes Percent Auto 6.8 % (18.3-44.2); Mean Corpuscular HGB Conc 32.5 g/dl (32-36); Mean Corpuscular Hemoglobin 29.7 pg (26-34); Mean Corpuscular Volume 91.4 fl (80-100); Mean Platelet Volume 10.6 fl (7.4-10.4); Monocytes Absolute Auto 0.8 K/mm3 (0.1-0.6); Monocytes Percent Auto 17.2 % (2.6-8.5); Neutrophils Absolute Auto 3.3 K/mm3 (1.3-6.7); Platelet Count Result 117 k/mm3 (150-375); Red Blood Count 3.84 M/mm3 (4.6-6.20); Red Cell Distribution Width 14.4 % (11.5-14.5); White Blood Count 4.6 K/mm3 (4.5-10.0)
[2024-09-24 06:14] LABS: Prothrombin Time 13.4 Seconds (11.1-14.7)
[2024-09-24 06:15] LABS: Partial Thromboplastin Time 37.2 Seconds (22.3-36.8)
[2024-09-24 08:39] LABS: Alanine Aminotransferase 21 U/L (6-50); Albumin Level 3.9 g/dL (3.5-5.1); Alkaline Phosphatase 108 U/L (38-126); Anion Gap 3 mmol/L (4-12); Aspartate Amino Transferase 35 U/L (17-59); Bilirubin,Total 0.7 mg/dL (0.2-1.3); Blood Urea Nitrogen 13 mg/dL (9-20); Calcium 8.9 mg/dL (8.4-10.2); Carbon Dioxide 27 mmol/L (22-30); Chloride 106 mmol/L (98-107); Estimated CRCL calculation 126 ml/min; Estimated Glomerular Filt Rate > 60; Glucose 97 mg/dL (65-110); Potassium 3.5 mmol/L (3.4-5.0); Sodium 136 mmol/L (137-145)
[2024-09-24] MEDS: TAMSULOSIN HCL 0.4 MG CAPSULE PO ×2 (09:41→16:58)
[2024-09-24] MEDS: DOCUSATE SODIUM 100 MG CAPSULE PO ×2 (09:41→16:58)
[2024-09-24] MEDS: METOPROLOL SUCCINATE EXT REL 12.5 MG TABCR PO (09:41)
[2024-09-24] MEDS: predniSONE 5 MG TABLET PO ×2 (09:42→16:58)
[2024-09-24] MEDS: ACETAMINOPHEN 325 MG TABLET 650 MG PO (09:42)
[2024-09-24] MEDS: ROSUVASTATIN 20 MG TABLET PO (09:43)
[2024-09-24] MEDS: ENOXAPARIN 120 MG/0.8 ML SYRINGE SUB-Q ×2 (09:43→20:06)
[2024-09-24] MEDS: OXYMETAZOLINE HCL 0.05% NAS 15 ML BTL (*BKC) 1 SPRAY NASAL (09:52)
--- NOTE | 2024-09-24 10:18 | PHAR ---
Pharmacy verified home med: * Use from home * Abiraterone 250 mg tablet take 4 tablets (1000 mg) by mouth daily. Take on an empty stomach at least 1 hr before or 2 hrs after food.
--- NOTE | 2024-09-24 14:52 | ECHO_ITS ---
Patient Info Name: Clem Capellan Age: 73 years : 1950 Gender: Male Ht: 71 in Wt: 268 lbs BSA: 2.51 m2 HR: 76 bpm BP: 137 / 81 mmHg Technical Quality: Poor Exam Date: 09/24/2024 4:08 PM Exam Location: Echo Lab Patient Status: Inpatient Admit Date: 09/23/2024 Staff Ordering Physician: Nayeli Bloom APRN [employer] School Music Instructor: Lg Ledesma RDCS Attending Provider: Corona Salvador MD Referring Physician: Wolf BEAN; Exam Type: CA echo dop color flow w con Study Info Indications - PE Complete two-dimensional, color flow and Doppler transthoracic echocardiogram is performed with contrast to opacify the left ventricle and to improve the deliniation of the left ventricle endocardial borders. Contrast/Agitated Saline Contrast/Ag. Saline: Definity Amount: --- ml Reason for Poor Study: poor echocardiographic windows Summary 1. Left ventricular systolic function is normal, estimated at >70%. 2. Moderate septal hypertrophy, mild posterior wall hypertrophy. 3. The left ventricular diastolic function is grade I diastolic dysfunction. 4. Right ventricular chamber dimension is mildly enlarged. 5. Right ventricular systolic function is normal. Left Ventricle Left ventricular chamber dimension is normal. Left ventricular systolic function is normal, estimated at >70%. Moderate septal hypertrophy, mild posterior wall hypertrophy. Left ventricular septal wall motion is normal. The left ventricular diastolic function is grade I diastolic dysfunction. Right Ventricle Right ventricular chamber dimension is mildly enlarged. Right ventricular systolic function is normal. Left Atria Left atrial chamber dimension is normal. Right Atria Right atrial chamber dimension is normal. Aortic Valve The aortic valve is probable trileaflet. There is mild aortic valve sclerosis. There is no aortic valve stenosis. There is no aortic valve regurgitation. Pulmonic Valve The pulmonic valve is normal. There is no pulmonic valve stenosis. There is no pulmonic regurgitation. Mitral Valve The mitral valve has normal leaflets. There is no mitral valve stenosis. There is no mitral valve regurgitation. Tricuspid Valve The tricuspid valve leaflets are normal. There is no significant tricuspid valve stenosis. There is no tricuspid valve regurgitation. Pericardium/Pleural The pericardium appears normal. There is no pericardial effusion. Inferior Vena Cava Normal inferior vena cava with >50% collapse upon inspiration consistent with Empty right atrial pressure, 10 mmHg. Aorta The aortic root size at the sinus of Valsalva is mildly dilated. The prox ascending aorta size is normal. Left Ventricular Outflow Tract Name Value Normal LVOT 2D LVOT Diameter 1.87 cm LVOT Doppler LVOT Peak Velocity 106.96 cm/s LVOT Peak Gradient 5 mmHg LVOT Mean Gradient 3 mmHg LVOT VTI 27.09 cm LVOT VTI/AV VTI Ratio 0.86 LVOT Stroke Volume 74.54 ml LVOT CO 5.07 l/min LVOT CI 2.02 L/min/m2 Pulmonic Valve Name Value Normal RVOT Doppler RVOT Peak Gradient 2 mmHg PV Doppler PV Peak Velocity 94.65 cm/s PV Peak Gradient 4 mmHg Mitral Valve Name Value Normal MV Doppler MV Decel Wilson 310.99 cm/s2 MV PHT 0 s MV Area (PHT) 3.72 cm2 4.00-5.00 MV Diastolic Function MV E Peak Velocity 63.44 cm/s MV A Peak Velocity 78.51 cm/s MV E/A 0.81 MV Decel Time 0 s MV Annular TDI MV Septal e' Velocity 8.56 cm/s >=8.00 MV E/e' (Septal) 7.41 <=8.00 MV Lateral e' Velocity 11.39 cm/s >=10.00 MV E/e' (Lateral) 5.57 <=8.00 MV e' Average 9.97 MV E/e' (Average) 6.49 Tricuspid Valve Name Value Normal Estimated PAP/RSVP RA Pressure 10 mmHg <=5 TV Annular TDI TV Lateral Sara s' Velocity 9.53 cm/s 9.50-18.70 Aorta Name Value Normal Ascending Aorta Ao Root Diameter (MM) 4.28 cm Ao Root Diam Index (MM) 1.70 cm/m2 Ao [place] Diameter 3.60 cm 2.60-3.20 Aortic Valve Name Value Normal AV Doppler AV Peak Velocity 149.17 cm/s AV Peak Gradient 9 mmHg AV Mean Gradient 6 mmHg AV VTI 31.61 cm AV Area (Cont Eq VTI) 2.36 cm2 >=3.00 AV Area (Cont Eq Ernie) 1.97 cm2 AV V1/V2 Ratio 0.72 AV Regurgitation 2D LVOT Area 2.75 cm2 Ventricles Name Value Normal LV Dimensions 2D/MM IVS Diastolic Thickness (2D) 1.65 cm 0.60-1.00 LVID Diastole (2D) 4.74 cm 4.20-5.80 LVIW Diastolic Thickness (2D) 1.40 cm 0.60-1.00 LVID Systole (2D) 2.76 cm 2.50-4.00 LVOT Diameter 1.87 cm LV Mass (2D Cubed) 305.32 g 88.00-224.00 LV Mass Index (2D Cubed) 0.01 g/cm2 0.00-0.01 Relative Wall Thickness (2D) 0.59 LV Fractional Shortening/Ejection Fraction 2D/MM LV Fractional Shortening (2D) 33 % 25-43 LV EF (2D Teicholz) 61 % 52-72 LV Diastolic Volume (4C MOD) 93.69 ml LV EF (4C MOD) 75 % LV Diastolic Volume (2C MOD) 73.23 ml LV EF (2C MOD) 77 % LV Diastolic Volume (BP MOD) 83.99 ml 62.00-150.00 LV Diastolic Volume Index (BP MOD) 0.03 l/m2 0.03-0.07 LV Systolic Volume (BP MOD) 20.73 ml 21.00-61.00 LV Systolic Volume Index (BP MOD) 0.01 l/m2 0.01-0.03 LV EF (BP MOD) 75 % 52-72 LV Diastolic Length (4C) 9.50 cm LV Systolic Length (4C) 6.92 cm LV Stroke Volume (4C MOD) 69.81 ml Atria Name Value Normal LA Dimensions LA Dimension (MM) 4.31 cm 3.00-4.10 LA Volume (4C A-L) 51.43 ml LA Volume (BP A-L) 69.03 ml RA Dimensions RA Area (4C) 13.19 cm2 <=18.00 Report Signatures
--- NOTE | 2024-09-24 15:30 | P.PNIM_ITS ---
Progress Note: A&P Assessment and Plan (1) Pulmonary embolism: Code(s): I26.99 - Other pulmonary embolism without acute cor pulmonale Status: Acute Assessment and Plan: Pulmonary emboli with single pulmonary arterial filling defect in the right middle lobar pulmonary artery. 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, without rupture Status: Acute Assessment and Plan: Stable on CT (5) Iron deficiency anemia: Qualifiers: Iron deficiency anemia type: unspecified iron deficiency Qualified Code(s): D50.9 - Iron deficiency anemia, unspecified Code(s): D50.9 - Iron deficiency anemia, unspecified Status: Acute Assessment and Plan: Not on home iron Plan Continue home sleeping pills trazodone Awaiting ECHO for discharge Subjective Date/time seen: 09/24/24 15:30 Interval history: Patient comfortable at bedside and awaiting ECHO Review of Systems Review of Systems: 12 systems were reviewed and are negativ e except for as per HPI. Exam Narrative: General: well appearing, appears stated age. HEENT: normocephalic, atraumatic. Mucous membranes moist. EOMI, PERRLA, bilateral sclera anicteric, no conjunctival injection. Neck supple without JVD, lymphadenopathy, or bruit. Respiratory: clear to ascultation bilaterally. No rales/rhonic/wheezes. Tachypneic Cardiovascular: Regular rate and rhythm, normal S1-S2 upon ascultation. No murmurs, rubs, or clicks. PMI is nondisplaced, capillary refill less than 3 second. Abdomen: Soft, round, no pulsatile masses, nondistended and nontender. No reboun d, no guarding. No CVA tenderness, no hepatosplenomegaly. Bowel sounds present to all four quadrants. No high pitch or tinkling sounds, resonant to percussion. Extremities: No cyanosis, clubbing, or edema present. Pulses are palpable 2/2. Active ROM to all four extremities. Neuro: Alert and orientated x 4. PERRLA. Cranial nerves 2-12 intact without focal deficit. Skin: Warm, dry, and intact, without rash, erythema, or lesion. Psych: pleasant, cooperative, normal speech, normal affect, no hallucinations, no dysarthia Objective Data Vital Signs Vital Signs: Vital Signs - 24 hr 09/23/24 17:12 09/23/24 20:00 09/23/24 20:00 Temperature 97.0 F L 97.7 F Pulse Rate 102 H 98 114 H Respiratory Rate 16 18 Blood Pressure 132/83 148/84 H Pulse Oximetry 100 96 Oxygen Delivery 09/24/24 00:00 09/24/24 00:35 09/24/24 04:00 Temperature 97.8 F Pulse Rate 91 87 74 Respiratory Rate 18 Blood Pressure 154/86 H Pulse Oximetry 96 Oxygen Delivery 09/24/24 05:25 09/24/24 08:00 09/24/24 08:00 Temperature 97.5 F L 97.7 F Pulse Rate 78 79 75 Respiratory Rate 18 18 Blood Pressure 124/68 117/80 Pulse Oximetry 96 95 Oxygen Delivery 09/24/24 09:41 09/24/24 09:45 09/24/24 11:59 Temperature 97.9 F Pulse Rate 79 76 Respiratory Rate 18 Blood Pressure 137/81 Pulse Oximetry 97 Oxygen Delivery Room Air 09/24/24 12:00 Temperature Pulse Rate 67 Respiratory Rate Blood Pressure Pulse Oximetry Oxygen Delivery Intake/Output Intake/Output: Intake & Output 09/21/24 09/22/24 09/23/24 09/24/24 23:59 23:59 23:59 23:59 Intake Total 240 1610 Balance 240 1610 Meds/Results Medications: Active Medications Generic Name Dose Route Start Last Admin Trade Name Freq PRN Reason Stop Dose Admin Acetaminophen 650 mg 09/23/24 14:50 09/24/24 09:42 Acetaminophen 325 Mg Tablet PO 650 mg Q4H PRN Administration Mild Pain (1-3) or Fever Hydrocodone Bitart/Acetaminophen 1 tab 09/23/24 14:50 09/24/24 01:56 Hydrocodone/Acetaminophen (*Crx) 5-325 Mg Tablet PO 1 tab Q4H PRN Administration Moderate Pain (4-6) Docusate Sodium 100 mg 09/23/24 17:00 09/24/24 09:41 Docusate Sodium 100 Mg Capsule PO 100 mg BID DANIELITO Administration Enoxaparin Sodium 120 mg 09/23/24 21:00 09/24/24 09:43 Enoxaparin 120 Mg/0.8 Ml Syringe SUB-Q 120 mg Q12HR DANIELITO Administration Metoprolol Succinate 12.5 mg 09/24/24 09:00 09/24/24 09:41 Metoprolol Succinate Ext Rel 12.5 Mg Tabcr PO 12.5 mg QAM DANIELITO Administration * Home Med * 1,000 mg 09/23/24 21:00 09/24/24 12:20 Abiraterone 250 Mg PO 10/23/24 20:59 Not Given Tablet HS [facility] Oxymetazoline HCl 1 spray 09/23/24 22:31 09/24/24 09:52 Oxymetazoline Hcl 0.05% Silviano 15 Ml Btl (*Bkc) NASAL 1 spray Q12HR PRN Administration Congestion Perflutren Lipid Microsphere 0 ml 09/23/24 14:52 Perflutren Lipid Microspheres 1.5 Ml Vial Diluted To 10 Ml Total Volume IV PUSH 09/26/24 14:52 ONCE PRN adequate visualization Protocol Prednisone 5 mg 09/23/24 18:15 09/24/24 09:42 Prednisone 5 Mg Tablet PO 5 mg BID DANIELITO Administration Rosuvastatin Calcium 20 mg 09/24/24 09:00 09/24/24 09:43 Rosuvastatin 20 Mg Tablet PO 20 mg DAILY DANIELITO Administration Tamsulosin HCl 0.4 mg 09/23/24 18:15 09/24/24 09:41 Tamsulosin Hcl 0.4 Mg Capsule PO 0.4 mg BID DANIELITO Administration Trazodone HCl 100 mg 09/23/24 22:35 09/23/24 22:34 Trazodone Hcl 50 Mg Tablet PO 100 mg QHS DANIELITO Administration Radiology Results: ITS Impressions Chest X-Ray 09/23/24 12:52 IMPRESSION: 1. Stable bibasilar chronic interstitial lung disease with usual interstitial p neumonia (UIP) pattern on prior CT. Chest CTA 09/23/24 13:15 IMPRESSION: 1. Pulmonary emboli with single pulmonary arterial filling defect in the right middle lobar pulmonary artery. 2. Stable UIP pattern chronic interstitial lung disease in the lower lobes. 3. Unchanged 4.5 cm (from ascending thoracic aortic aneurysm. 4. Small sliding-type hiatal hernia. Venous Doppler Study 09/23/24 14:42 IMPRESSION: 1. No deep venous thrombosis detected within the bilateral lower extremities, as detailed above. Labs Labs: Laboratory Results - last 24 hr 09/23/24 09/24/24 09/24/24 17:10 02:09 05:29 WBC RBC Hgb Hct MCV MCH MCHC RDW Plt Count MPV Immature Gran % (Auto) Neut % (Auto) Lymph % (Auto) [place] % (Auto) Eos % (Auto) Baso % (Auto) Lymph # (Auto) [place] # (Auto) Eos # (Auto) Baso # (Auto) Abs Immat Gran (auto) Absolute Neuts (auto) Absolute Nucleated RBC Nucleated RBC % PT INR APTT Sodium 136 L Potassium 3.5 Chloride 106 Carbon Dioxide 27 Anion Gap 3 L BUN 13 Creatinine 0.60 L Estim Creat Clear Calc 126 Estimated GFR > 60 Glucose 97 Calcium 8.9 Total Bilirubin 0.7 AST 35 ALT 21 Alkaline Phosphatase 108 Troponin I < 0.012 Total Protein 7.0 Albumin 3.9 Influenza A (RT-PCR) Negative Influenza B (RT-PCR) Negative RSV (RT-PCR) Negative SARS-CoV-2 RNA (RT-PCR) Negative 09/24/24 05:31 WBC 4.6 RBC 3.84 L Hgb 11.4 L Hct 35.1 L MCV 91.4 MCH 29.7 MCHC 32.5 RDW 14.4 Plt Count 117 L MPV 10.6 H Immature Gran % (Auto) 0.2 Neut % (Auto) 73.0 Lymph % (Auto) 6.8 L [place] % (Auto) 17.2 H Eos % (Auto) 2.4 Baso % (Auto) 0.4 Lymph # (Auto) 0.31 L [place] # (Auto) 0.8 H Eos # (Auto) 0.1 Baso # (Auto) 0.0 Abs Immat Gran (auto) 0.01 Absolute Neuts (auto) 3.3 Absolute Nucleated RBC 0.000 Nucleated RBC % 0.0 PT 13.4 INR 1.0 APTT 37.2 H Sodium Potassium Chloride Carbon Dioxide Anion Gap BUN Creatinine Estim Creat Clear Calc Estimated GFR Glucose Calcium Total Bilirubin AST ALT Alkaline Phosphatase Troponin I Total Protein Albumin Influenza A (RT-PCR) Influenza B (RT-PCR) RSV (RT-PCR) SARS-CoV-2 RNA (RT-PCR) Quality VTE Prophylaxis VTE prophylaxis: mechanical ordered and pharmacologic ordered
[2024-09-24] MEDS: PERFLUTREN LIPID MICROSPHERES 1.5 ML VIAL DILUTED TO 10 ML TOTAL VOLUME IV PUSH (16:55)
--- NOTE | 2024-09-24 17:27 | IVDEFINITY ---
Prior to administration of IV Definity the patient was educated on the risks and benefits of the imaging enhancing agent including potential adverse side effects. The patient verbalized understanding. Allergies were verified. No exclusion criteria were identified and at least one of the following inclusion criteria were met: 1) physician request, 2) patient technically difficult to image (per the [place] [employer] guidelines of two or more segments not discernable within the apical view), or 3) questionable left ventricular function. ?
[2024-09-24] MEDS: traZODone HCL 50 MG TABLET 100 MG PO (20:06)
[2024-09-24] MEDS: ABIRATERONE 250 MG 1000 EACH PO (20:07)
[2024-09-25] VITALS (12 sets, daily range): BP systolic 102–111; BP diastolic 61–72; PULSE 68–87; RESP 16–18; TEMP 36.1–37.5; O2SAT 93–100
[2024-09-25 05:59] LABS: Basophils Percent Auto 0.3 % (0.2-1.2); Eosinophils Absolute Auto 0.1 K/mm3 (0-0.3); Eosinophils Percent Auto 4.2 % (0-4.4); Hematocrit 33.2 % (42.0-52.0); Hemoglobin 10.8 g/dL (14.0-18.0); Immature Granulocyte Absolute 0.01 K/mm3 (0.00-0.031); Immature Granulocyte Percent A 0.3 % (0-0.5); Lymphocytes Absolute Auto 0.35 K/mm3 (0.9-3.2); Lymphocytes Percent Auto 10.5 % (18.3-44.2); Mean Corpuscular HGB Conc 32.5 g/dl (32-36); Mean Corpuscular Hemoglobin 29.8 pg (26-34); Mean Corpuscular Volume 91.5 fl (80-100); Mean Platelet Volume 10.4 fl (7.4-10.4); Monocytes Absolute Auto 0.7 K/mm3 (0.1-0.6); Monocytes Percent Auto 20.4 % (2.6-8.5); Neutrophils Absolute Auto 2.1 K/mm3 (1.3-6.7); Neutrophils Percent Auto 64.3 % (45.5-73.1); Platelet Count Result 116 k/mm3 (150-375); Red Blood Count 3.63 M/mm3 (4.6-6.20); Red Cell Distribution Width 14.4 % (11.5-14.5); White Blood Count 3.3 K/mm3 (4.5-10.0)
[2024-09-25] MEDS: ENOXAPARIN 120 MG/0.8 ML SYRINGE SUB-Q (08:27)
[2024-09-25] MEDS: METOPROLOL SUCCINATE EXT REL 12.5 MG TABCR PO (08:27)
[2024-09-25] MEDS: TAMSULOSIN HCL 0.4 MG CAPSULE PO ×2 (08:28→17:36)
[2024-09-25] MEDS: ROSUVASTATIN 20 MG TABLET PO (08:28)
[2024-09-25] MEDS: DOCUSATE SODIUM 100 MG CAPSULE PO ×2 (08:28→17:36)
[2024-09-25 08:57] LABS: Alanine Aminotransferase 23 U/L (6-50); Albumin Level 3.7 g/dL (3.5-5.1); Alkaline Phosphatase 90 U/L (38-126); Anion Gap 3 mmol/L (4-12); Aspartate Amino Transferase 33 U/L (17-59); Bilirubin,Total 0.8 mg/dL (0.2-1.3); Blood Urea Nitrogen 13 mg/dL (9-20); Calcium 8.8 mg/dL (8.4-10.2); Carbon Dioxide 26 mmol/L (22-30); Chloride 107 mmol/L (98-107); Estimated CRCL calculation 126 ml/min; Estimated Glomerular Filt Rate > 60; Glucose 95 mg/dL (65-110); Potassium 3.3 mmol/L (3.4-5.0); Sodium 136 mmol/L (137-145)
[2024-09-25] MEDS: predniSONE 5 MG TABLET PO ×2 (10:22→17:36)
--- NOTE | 2024-09-25 13:02 | P.PNIM_ITS ---
Progress Note: A&P Assessment and Plan (1) Pulmonary embolism: Code(s): I26.99 - Other pulmonary embolism without acute cor pulmonale Status: Acute Assessment and Plan: Pulmonary emboli with single pulmonary arterial filling defect in the right middle lobar pulmonary artery. 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 Decreased shortness of breath. No chest pain. No abdominal pain, nausea, no vomiting. Review of Systems Review of Systems: 12 systems were reviewed and are negativ e except for as per HPI. Exam Narrative: General: well appearing, appears stated age. HEENT: normocephalic, atraumatic. Mucous membranes moist. EOMI, PERRLA, bilateral sclera anicteric, no conjunctival injection. Neck supple without JVD, lymphadenopathy, or bruit. Respiratory: clear to ascultation bilaterally. No rales/rhonic/wheezes. Tachypneic Cardiovascular: Regular rate and rhythm, normal S1-S2 upon ascultation. No murmurs, rubs, or clicks. PMI is nondisplaced, capillary refill less than 3 second. Abdomen: Soft, round, no pulsatile masses, nondistended and nontender. No rebound, no guarding. No CVA tenderness, no hepatosplenomegaly. Bowel sounds present to all four quadrants. No high pitch or tinkling sounds, resonant to percussion. Extremities: No cyanosis, clubbing, or edema present. Pulses are palpable 2/2. Active ROM to all four extremities. Neuro: Alert and orientated x 4. PERRLA. Cranial nerves 2-12 intact without focal deficit. Skin: Warm, dry, and intact, without rash, erythema, or lesion. Psych: pleasant, cooperative, normal speech, normal affect, no hallucinations, no dysarthia Objective Data Vital Signs Vital Signs: Vital Signs - 24 hr 09/24/24 15:55 09/24/24 16:00 09/24/24 20:00 Temperature 36.6 C Pulse Rate 74 77 Respiratory Rate 18 Blood Pressure 137/80 Pulse Oximetry 97 Oxygen Delivery Room Air 09/24/24 20:00 09/24/24 22:39 09/25/24 00:00 Temperature 36.9 C Pulse Rate 73 69 80 Respiratory Rate 18 Blood Pressure 149/85 H Pulse Oximetry 97 Oxygen Delivery 09/25/24 00:35 09/25/24 04:00 09/25/24 05:25 Temperature 37.5 C 36.3 C L Pulse Rate 87 87 86 Respiratory Rate 16 16 Blood Pressure 109/70 107/72 Pulse Oximetry 93 94 Oxygen Delivery 09/25/24 08:27 09/25/24 09:42 Temperature 36.2 C L Pulse Rate 83 83 Respiratory Rate 16 Blood Pressure 109/63 Pulse Oximetry 98 Oxygen Delivery Intake/Output Intake/Output: Intake & Output 09/22/24 09/23/24 09/24/24 09/25/24 23:59 23:59 23:59 23:59 Intake Total 240 2396 1220 Balance 240 2396 1220 Meds/Results Medications: Active Medications Generic Name Dose Route Start Last Admin Trade Name Freq PRN Reason Stop Dose Admin Acetaminophen 650 mg 09/23/24 14:50 09/24/24 09:42 Acetaminophen 325 Mg Tablet PO 650 mg Q4H PRN Administration Mild Pain (1-3) or Fever Hydrocodone Bitart/Acetaminophen 1 tab 09/23/24 14:50 09/24/24 01:56 Hydrocodone/Acetaminophen (*Crx) 5-325 Mg Tablet PO 1 tab Q4H PRN Administration Moderate Pain (4-6) Apixaban 10 mg 09/25/24 21:00 Apixaban 5 Mg Tablet PO Q12HR DANIELITO Docusate Sodium 100 mg 09/23/24 17:00 09/25/24 08:28 Docusate Sodium 100 Mg Capsule PO 100 mg BID DANIELITO Administration Metoprolol Succinate 12.5 mg 09/24/24 09:00 09/25/24 08:27 Metoprolol Succinate Ext Rel 12.5 Mg Tabcr PO 12.5 mg QAM DANIELITO Administration * Home Med * 1,000 mg 09/23/24 21:00 09/24/24 20:07 Abiraterone 250 Mg PO 10/23/24 20:59 1,000 mg Tablet HS DANIELITO Administration Oxymetazoline HCl 1 spray 09/23/24 22:31 09/24/24 09:52 Oxymetazoline Hcl 0.05% Silviano 15 Ml Btl (*Bkc) NASAL 1 spray Q12HR PRN Administration Congestion Prednisone 5 mg 09/23/24 18:15 09/25/24 10:22 Prednisone 5 Mg Tablet PO 5 mg BID DANIELITO Administration Rosuvastatin Calcium 20 mg 09/24/24 09:00 09/25/24 08:28 Rosuvastatin 20 Mg Tablet PO 20 mg DAILY DANIELITO Administration Tamsulosin HCl 0.4 mg 09/23/24 18:15 09/25/24 08:28 Tamsulosin Hcl 0.4 Mg Capsule PO 0.4 mg BID DANIELITO Administration Trazodone HCl 100 mg 09/23/24 22:35 09/24/24 20:06 Trazodone Hcl 50 Mg Tablet PO 100 mg QHS DANIELITO Administration Radiology Results: ITS Impressions Chest X-Ray 09/23/24 12:52 IMPRESSION: 1. Stable bibasilar chronic interstitial lung disease with usual interstitial pneumonia (UIP) pattern on prior CT. Chest CTA 09/23/24 13:15 IMPRESSION: 1. Pulmonary emboli with single pulmonary arterial filling defect in the right middle lobar pulmonary artery. 2. Stable UIP pattern chronic interstitial lung disease in the lower lobes. 3. Unchanged 4.5 cm (from ascending thoracic aortic aneurysm. 4. Small sliding-type hiatal hernia. Venous Doppler Study 09/23/24 14:42 IMPRESSION: 1. No deep venous thrombosis detected within the bilateral lower extremities, as detailed above. Labs Labs: Laboratory Results - last 24 hr 09/25/24 09/25/24 05:27 05:31 WBC 3.3 L RBC 3.63 L Hgb 10.8 L Hct 33.2 L MCV 91.5 MCH 29.8 MCHC 32.5 RDW 14.4 Plt Count 116 L MPV 10.4 Immature Gran % (Auto) 0.3 Neut % (Auto) 64.3 Lymph % (Auto) 10.5 L [place] % (Auto) 20.4 H Eos % (Auto) 4.2 Baso % (Auto) 0.3 Lymph # (Auto) 0.35 L [place] # (Auto) 0.7 H Eos # (Auto) 0.1 Baso # (Auto) 0.0 Abs Immat Gran (auto) 0.01 Absolute Neuts (auto) 2.1 Absolute Nucleated RBC 0.000 Nucleated RBC % 0.0 Sodium 136 L Potassium 3.3 L Chloride 107 Carbon Dioxide 26 Anion Gap 3 L BUN 13 Creatinine 0.60 L Estim Creat Clear Calc 126 Estimated GFR > 60 Glucose 95 Calcium 8.8 Total Bilirubin 0.8 AST 33 ALT 23 Alkaline Phosphatase 90 Total Protein 7.0 Albumin 3.7 Quality VTE Prophylaxis VTE prophylaxis: mechanical ordered and pharmacologic ordered
[2024-09-25] MEDS: POTASSIUM CHLORIDE 20 MEQ ER TABLET 40 MEQ PO (13:50)
[2024-09-25] MEDS: ACETAMINOPHEN 325 MG TABLET 650 MG PO (15:02)
[2024-09-25] MEDS: APIXABAN 5 MG TABLET 10 MG PO (20:47)
[2024-09-25] MEDS: traZODone HCL 50 MG TABLET 100 MG PO (20:47)
[2024-09-25] MEDS: ABIRATERONE 250 MG 1000 EACH PO (20:47)
[2024-09-26] VITALS: BP 121/83; PULSE 70; PULSE 73; RESP 18; TEMP 36.6; O2SAT 95
[2024-09-26 04:00] VITALS: PULSE 85
[2024-09-26 04:58] VITALS: BP 122/66; PULSE 67; RESP 16; TEMP 36.6; O2SAT 96
[2024-09-26 08:06] LABS: Basophils Percent Auto 0.7 % (0.2-1.2); Eosinophils Absolute Auto 0.2 K/mm3 (0-0.3); Eosinophils Percent Auto 6.2 % (0-4.4); Hematocrit 33.9 % (42.0-52.0); Hemoglobin 11.3 g/dL (14.0-18.0); Immature Granulocyte Absolute 0.01 K/mm3 (0.00-0.031); Immature Granulocyte Percent A 0.3 % (0-0.5); Lymphocytes Absolute Auto 0.39 K/mm3 (0.9-3.2); Lymphocytes Percent Auto 12.8 % (18.3-44.2); Mean Corpuscular HGB Conc 33.3 g/dl (32-36); Mean Corpuscular Volume 89.9 fl (80-100); Monocytes Absolute Auto 0.6 K/mm3 (0.1-0.6); Monocytes Percent Auto 19.3 % (2.6-8.5); Neutrophils Absolute Auto 1.9 K/mm3 (1.3-6.7); Neutrophils Percent Auto 60.7 % (45.5-73.1); Platelet Count Result 127 k/mm3 (150-375); Red Blood Count 3.77 M/mm3 (4.6-6.20); Red Cell Distribution Width 14.3 % (11.5-14.5); White Blood Count 3.1 K/mm3 (4.5-10.0)
[2024-09-26 08:17] LABS: Anion Gap 4 mmol/L (4-12); Blood Urea Nitrogen 16 mg/dL (9-20); Carbon Dioxide 26 mmol/L (22-30); Chloride 108 mmol/L (98-107); Estimated CRCL calculation 126 ml/min; Estimated Glomerular Filt Rate > 60; Glucose 97 mg/dL (65-110); Potassium 3.5 mmol/L (3.4-5.0); Sodium 138 mmol/L (137-145)
--- NOTE | 2024-09-26 09:13 | P.DS_ITS ---
DS: Admitting Diagnosis Discharge Date 09/26/2024 Admitting Diagnosis Pulmonary embolism DS: Discharge Diagnosis Discharge Diagnosis (1) Pulmonary embolism: Code(s): I26.99 - Other pulmonary embolism without acute cor pulmonale Status: Acute Assessment and Plan: Pulmonary emboli with single pulmonary arterial filling defect in the right middle lobar pulmonary artery. 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 Patient was found pulmonary embolism. Patient was treated with Lovenox and then converted to Eliquis. No complication during the stay in the hospital. Today patient is feeling better will discharge home stable condition. Follow-up with primary care and Pulmonary schedule. Status at Discharge Cognitive/behavioral status at discharge: Stable Time Spent with Patient Time attestation: 30 minutes Total time spent providing and/or coordinating discharge services: Exam Narrative: General: well appearing, appears stated age. HEENT: normocephalic, atraumatic. Mucous membranes moist. EOMI, PERRLA, bilateral sclera anicteric, no conjunctival injection. Neck supple without JVD, lymphadenopathy, or bruit. Respiratory: clear to ascultation bilaterally. No rales/rhonic/wheezes. Tachypneic Cardiovascular: Regular rate and rhythm, normal S1-S2 upon ascultation. No murmurs, rubs, or clicks. PMI is nondisplaced, capillary refill less than 3 second. Abdomen: Soft, round, no pulsatile masses, nondistended and nontender. No rebound, no guarding. No CVA tenderness, no hepatosplenomegaly. Bowel sounds present to all four quadrants. No high pitch or tinkling sounds, resonant to percussion. Extremities: No cyanosis, clubbing, or edema present. Pulses are palpable 2/2. Active ROM to all four extremities. Neuro: Alert and orientated x 4. PERRLA. Cranial nerves 2-12 intact without focal deficit. Skin: Warm, dry, and intact, without rash, erythema, or lesion. Psych: pleasant, cooperative, normal speech, normal affect, no hallucinations, no dysarthia DS: Data Data Completed and Pending Labs on day of discharge: Labs from last 24 hours 09/26/24 08:01 WBC 3.1 L RBC 3.77 L Hgb 11.3 L Hct 33.9 L MCV 89.9 MCH 30.0 MCHC 33.3 RDW 14.3 Plt Count 127 L MPV 10.0 Immature Gran % (Auto) 0.3 Neut % (Auto) 60.7 Lymph % (Auto) 12.8 L [place] % (Auto) 19.3 H Eos % (Auto) 6.2 H Baso % (Auto) 0.7 Lymph # (Auto) 0.39 L [place] # (Auto) 0.6 Eos # (Auto) 0.2 Baso # (Auto) 0.0 Abs Immat Gran (auto) 0.01 Absolute Neuts (auto) 1.9 Absolute Nucleated RBC 0.000 Nucleated RBC % 0.0 Sodium 138 Potassium 3.5 Chloride 108 H Carbon Dioxide 26 Anion Gap 4 BUN 16 Creatinine 0.60 L Estim Creat Clear Calc 126 Estimated GFR > 60 Glucose 97 Calcium 9.0 Discharge Plan Discharge Attending physician on discharge: Cuong Humphries Discharging Clinician: Cuong Humphries Activity: as tolerated Diet: as tolerated and heart healthy Patient Instructions: Enoxaparin (By injection), Pulmonary Embolism (DC) Patient Language: [place]i Follow-up/Referrals: Corey Angel MD [Primary Care Provider] - Mauro Mueller MD [Physician] - Discharge Medications: New Eliquis 5 mg Tablet 10 mg PO Q12HR Qty: 12 0RF Eliquis 5 mg tablet 5 mg PO BID Qty: 60 0RF Rx Instructions: Please start 5mg po bid once You have finished 10mg tablets. Meaning after one week. Continued cholecalciferol (vitamin D3) [Vitamin D3] 50 mcg (2,000 unit) Tablet 2,000 unit PO DAILY abiraterone 250 mg tablet 1,000 mg PO HS prednisone 5 mg tablet 5 mg PO BID tamsulosin 0.4 mg capsule 0.4 mg PO BID trazodone 50 mg tablet 50 mg PO QHS Rx Instructions: Take 1-2 tablets by oral route nightly at bedtime docusate sodium [Colace] 100 mg capsule 100 mg PO BID Hydrocil Instant Packet 1 packet PO DAILY Rx Instructions: mix into at least 8 oz of water or juice before administering rosuvastatin 20 mg tablet 20 mg PO DAILY Qty: 90 1RF icosapent ethyl 1 gram capsule See Rx Instructions .ROUTE .COMPLEX Qty: 360 1RF Dose Instruction: TAKE 2 CAPSULES BY MOUTH TWICE DAILY Rx Instructions: TAKE 2 CAPSULES BY MOUTH TWICE DAILY metoprolol succinate 25 mg tablet extended release 24 hr See Rx Instructions .ROUTE .COMPLEX Qty: 90 0RF Dose Instruction: TAKE 1/2 TABLET(12.5MG) BY MOUTH DAILY Rx Instructions: TAKE 1/2 TABLET(12.5MG) BY MOUTH DAILY Date of admission: 09/23/24 15:11 Primary Care Provider: Corey Angel Admitting Provider: Corona Salvador Attending physician on admission: Corona Salvador Condition: Serious Quality VTE Prophylaxis VTE prophylaxis: mechanical ordered and pharmacologic ordered
[2024-09-26] MEDS: TAMSULOSIN HCL 0.4 MG CAPSULE PO (09:32)
[2024-09-26] MEDS: DOCUSATE SODIUM 100 MG CAPSULE PO (09:32)
[2024-09-26 09:33] VITALS: PULSE 85
[2024-09-26] MEDS: APIXABAN 5 MG TABLET 10 MG PO (09:33)
[2024-09-26] MEDS: METOPROLOL SUCCINATE EXT REL 12.5 MG TABCR PO (09:33)
[2024-09-26] MEDS: predniSONE 5 MG TABLET PO (09:33)
[2024-09-26] MEDS: ROSUVASTATIN 20 MG TABLET PO (09:33)
--- OUTSIDE RECORDS SUMMARY | 2024-09-30 09:12 | XMS_ITS | Encounter Summary ---
Author Organization [facility] Address [address] [place] [address]. [place] [address] [place] [address] Care Team Providers Care Chemist Food Name Role Phone Corey Angel MD Primary Care Provider [phone] Reason for Visit * Reason Onset Date Comments Results 02/23/2024 Encounter Details Date Type Department Care Team (Late st Contact Info) Description 02/23/2024 Telephone [facility] [address] [place] [address] Diego Muse MD [address] [facility] [address] [place] [address] Results Social History Tobacco Use Types Packs/Day Years Used Date Smoking Tobacco: Never Smokeless Tobacco: Never Sex and Gender Information Value Date Recorded Sex Assigned at Not on file Legal Sex Male 5:37 PM CDT Gender Identity Not on file Sexual Orientation Not on file documented as of this encounter Progress Notes * Priscilla Wood RN - 02/23/2024 11:31 AM CDT Patient voiced understanding and had no further questions at this time. Priscilla OBRIEN * Priscilla Wood RN - 02/23/2024 11:11 AM CDT Images from the original note were not included. MD Priscilla Shankar, RN Monitor ok documented in this encounter Plan of Treatment Not on file documented as of this encounter Visit Diagnoses Not on filedocumented in this encounter Care Teams Chemist Food Relationship Specialty Start Date End Date Corey Angel MD [address] [place] [address] PCP - General INTERNAL MEDICINE 02/25/21 documented as of this encounter
--- OUTSIDE RECORDS SUMMARY | 2024-09-30 09:12 | XMS_ITS | Encounter Summary ---
Author Organization [facility] Address [address] [place] [address]. [place] [address] [place] [address] Care Team Providers Care Helper Marble Finisher Name Role Phone Corey Hernández MD Primary Care Provider [phone] Reason for Visit * Reason Comments Thoracic Aortic Aneurysm 1 month follow up Lipids Encounter Details Date Type Department Care Team (Late st Contact Info) Description 07/13/2023 10:30 AM CDT Office Visit [facility] [address] [place] [address] [place] [address] Diego Muse MD [address] [facility] [address] [place] [address] Thoracic Aortic Aneurysm (1 month follow up ); Lipids Social History Tobacco Use Types Packs/Day Years Used Date Smoking Tobacco: Never Smokeless Tobacco: Never Tobacco Cessation:Counseling Given: Not Answered Sex and Gender Information Value Date Recorded Sex Assigned at Not on file Legal Sex Male 5:37 PM CDT Gender Identity Not on file Sexual Orientation Not on file documented as of this encounter Last Filed Vital Signs Vital Sign Reading Time Taken Comments Blood Pressure 118/88 07/13/2023 10:28 AM CDT Pulse 80 07/13/2023 10:28 AM CDT Temperature - - Respiratory Rate - - Oxygen Saturation 100% 07/13/2023 10: 28 AM CDT Inhaled Oxygen Concentration - - Weight 118.2 kg (260 lb 9.6 oz) 023 10:28 AM CDT Height 180.3 cm (5' 11 ) 07/13/2023 10: 28 AM CDT Body Mass Index 36.35 07/13/2023 10:28 AM CDT documented in this encounter Progress Notes * Diego Muse MD - 07/13/2023 10:30 AM CDT Reason for Visit: Thoracic Aortic Aneurysm (1 month follow up ) and Lipids History of Present Illness: This very nice 72-year-old man has a history of thoracic ascending aortic aneurysm which was diagnosed at the time of CT calcium score done in March 2021. He [facility] who told him that he was not impressed by this. Since that time Dr. Romo has moved out of town. The patient does not have a history of hypertension or diabetes he is treated for hypercholesterolemia. His blood pressure fluctuates but has never been treated. He does not check it on a regularbasis. His does have a blood pressure cuff. He does have a history of exertional shortness of breath with moderate activities no chest tightness palpitations or syncope. He does not have a family history of aortic aneurysm. His father at 83 of congestive heart failure. When he had his repeat appointment at [facility] they rechecked his aneurysm and it was no significant change. They put him on metoprolol 12.5 daily which I told him I agree with. His blood pressure is running in the 1 teens over 70s. No chest pain with exertion or shortness of breath. He did have an episode 2 days ago of lancinating pain in to his left neck and shoulder region. It happened when he turned his head to the left and lasted a short time and went away and then came back. It is all gone today. He called Dr. Hernández,who told him he thought it was a cervical spine problem. Since last appointment he is doing well with no exertional chest pain shortness of breath the spells or blackouts. He has had some intermittent jabs of bleeding chest pain on his left side without exertion. He is moderately physically active. He is still doing regular walking. He is no longer working part-time. He is having no cardiac symptoms at all. Recommendations and Plan: This patient has moderate coronary calcification with negative stress test and no angina. He also has moderate dilatation of ascending aorta which is unchanged. Between and it looks like his aorta had increased from 4.4 to [address] but this last year who recentlywas read as 4.4 cm again there is no record changer assembler the last 2 years. These fluctuations in reading are probably related to technique. We will repeat CT in 1 year. I will see him in 6 months unless he has problems. Continue excellent risk factor control. Medications: Current Outpatient Medications: azelastine (ASTELIN) 0.1 % nasal spray, 1 spray by Nasal route as needed., Disp: , Rfl: LORazepam (ATIVAN) 0.5 MG tablet, Take 1 tablet (0.5 mg total) by mouth every 6 (six) hours as needed., Disp: , Rfl: Cholecalciferol 10 MCG (400 UNIT) Cap, Take 600 Units by mouth daily., Disp: , Rfl: esomeprazole (NEXIUM 24HR) 20 MG capsule, Take 20 mg by mouth daily., Disp: , Rfl: icosapent ethyl (VASCEPA) 1 G capsule, Take 1 g by mouth 2 (two) times daily., Disp: , Rfl: metoprolol succinate ER (TOPROL-XL) 25 MG 24 hr tablet, Take 12.5 mg by mouth daily., Disp: , Rfl: nitroglycerin (NITROSTAT) 0.4 MG SL tablet, Place 1 tablet (0.4 mg total) under the tongue every 5 (five) minutes as needed for Chest Pain (Maximum of 3 doses)., Disp: 25 tablet, Rfl: 2 rosuvastatin (CRESTOR) 40 MG tablet, Take 40 mg by mouth daily., Disp: , Rfl: Review of patient's allergies indicates: No Known Allergies No past medical history on file. No past surgical history on file. Social History Tobacco Use Smoking status: Never Smokeless tobacco: Never Vaping Use Vaping Use: Never used Substance Use Topics Drug use: Never No family history on file. No family status information on file. Surgery history cholecystectomy Family history Father at 83 of heart failure mother at 90. Brother at 75 Brother andsister are alive. Social history lives with his she has had colon cancer. Patient has never been a smoker. Not a heavy drinker. 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 Review of Systems General no fever chills Eyes glasses ENT good Hearing respiratory not coughing or wheezing GI previous cholecystectomy since then his bowels have been generally normal no hematuria dysuria Vascular no claudication or swelling Endocrine no heat or cold intolerance Hematologic no bruising or bleeding Musculoskeletal no severe arthritic problem Neuro no history of stroke or TIA Psych no major depression or mood disorder. He has been anxious about his aneurysm Vitals: 07/13/23 1028 BP: 118/88 Pulse: 80 Weight: 118.2 kg (260 lb 9.6 oz) Height: 1.803 m (5' 11 ) Body mass index is 36.35 kg/m??. Physical Exam Healthy man overweight Skin warm and dry head normocephalic Eyes no icterus Ears normal Mouth mask Neck no JVD or thyromegaly. Restricted motion of neck rotation and lateral bend restricted to about60 degrees. Lungs clear Card exam is regular S1-S2 normal no murmur gallop. PMI not well palpated Abdomen no organomegaly no aneurysm Extremities no edema clubbing or cyanosis 2+ dorsalis pedis radial carotid pulses no carotid bruits Neuro no focal abnormality Mental status alert coherent cooperative Gait normal 07-09-23 ct chest The aortic root at the sinuses of Valsalva measures 4.2 cm. Sinotubular junction 3.6 cm. Ascending aorta 4.4 cm. Aortic arch 3.1 cm. Descending thoracic aorta 3.3 cm. Abdominal aorta 2.2 cm. No interval change inthe diameter of the aortic root and ascending aorta from 04/20/2021. No aortic dissection. No pulmonary artery embolism. Coronary artery calcium. No pericardial effusion. Patent bilateral common carotid, vertebral, and subclavian arteries. Patent celiac and superior mesenteric and renal arteries.unchanged from prior ct. 08-04-[address] FINDINGS: Vascular findings: Coronary artery atherosclerosis. Unchanged mild dilation of the ascending thoracic aorta. Aortic measurements: Sinuses of Valsalva: Commissure to commissure: 4.3 x 4.5 x 3.9 cm, previously 4.4 x 4.3 x 4.1 cm. Cusp to cusp: 4.6 x 4.8 cm, previously 4.7 x 4.4 cm. Sinotubular junction: 4.3 x 4.3 cm, previously 4.3 x 4.1 cm. Maximum dimension of the ascending aorta at the level of the right main pulmonary artery: 4.8 x 4.6 cm, previously 4.7 x 4.7 cm Aortic arch: 4.1 x 3.9 cm, previously 4.1 x 3.9 cm. Descending thoracic aorta at the level of the left atrium: 3.3 x 3.2 cm, previously 3.4 x 3.2 cm. Nonvascular findings: Paraseptal emphysema bilaterally. Atelectasis is noted in the lung bases. Small hiatal hernia. Decreased bone mineralization is noted within the mid to lower thoracic spine. IMPRESSION: Stable dilation of the thoracic aorta with measurements detailed above. Dictated by: Sukhdeep Ozuna M.D. 04-21-21 ct chest ca score Total calcium score of 559; between 50 and 75% of similar patients have equal or less coronary artery calcium. Annular calcifications of the aortic valve. Ascending aorta dilatation, measuring 4.4 cm. Coronary artery calcification is a specific marker for coronary atherosclerosis. The amount of calcification correlates with severity of coronary atherosclerosis. Paraseptal emphysema. Bilateral gynecomastia. Diagnostics 12-13-22 Stress conclusion: 1. Clinically negative. 2. Electrocardiographically negative treadmill test for ischemia. 3. Adequate exercise capacity. 4. Calero Treadmill Score is 6, which indicates low risk. 5. Blood pressure response was hypertensive. Blood pressure at baseline was elevated. 6. Scintigraphic images to follow. Perfusion conclusion: 1. Good study quality. Resting and stress motion correction was applied to images. Diaphragm,soft tissue attenuation is noted. Prone imaging was performed. 2. Normal myocardial perfusion SPECT imaging. Images show a small area of irreversibility present in the inferolateral wall(s). This defect inproves on stress prone image, c/w diaphragmatic attenuation artifact . No ischemia or infarct . 3. Normal wall motion with an ejection fraction of 83%. 4. Stress test with myocardial perfusion imaging shows overall low risk for a cardiac event. < 10/29/2022 EKG sinus rhythm borderline voltage for LVH 08/24/2022 echo The left ventricular size is normal. Estimated left ventricular ejection fraction is 70-75%. Mild concentric left ventricular hypertrophy. Left ventricular diastolic function is normal. Wall motion appears normal in all segments. The right ventricular size is mildly enlarged. The left atrial volume is normal ( less than 34 ml/M2). Right atrial size is normal. Aortic root is mildly dilated. Ascending aorta is mildly dilated. The sinus of Valsalva measures 4.2cm. The proximal ascending aorta measures 4.1cm. No evidence of aortic valve stenosis. No evidence of aortic valve regurgitation. No evidence of mitral regurgitation. A trace of tricuspid regurgitation. Unable to reliably quantitate pulmonary systolic pressure. 04-21-21 CT Ca score Left main: 0 Left anterior descendin Left circumflex: 105 Right coronary artery: 76.0 Total score: 559 The total calcium score is 559. This places the patient into the between 50 and 75% in comparison to a group of patient's asymptomatic for coronary artery disease with the same age and gender. This means that between 50 and 75% of malesat age 69 have calcium scores equal or lower than the patient. Refer to the printed report for the graph demonstrating the population risk stratification for males. Annular calcifications of the aortic valve. Ascending aorta dilatation, measuring 4.4 cm. Coronary artery calcification is a specific marker for coronary atherosclerosis. The amount of calcification correlates with severity of coronary atherosclerosis. Paraseptal emphysema. Bilateral gynecomastia Diagnoses/Impression: 1. Aortic valve calcification 2. Aneurysm of ascending aorta without rupture (CMS/HCC) 3. Coronary artery disease due to calcified coronary lesion 4. Hypercholesterolemia 5. Primary hypertension Referring Provider: No ref. provider found PCP: COREY HERNÁNDEZ MD documented in this encounter Plan of Treatment Not on file documented as of this encounter Visit Diagnoses Diagnosis Aortic valve calcification- Primary Aortic valve disorders Aneurysm of ascending aorta without rupture (CMS/HCC) Coronary artery disease due to calcified coronary lesion Hypercholesterolemia Pure hypercholesterolemia Primary hypertension Unspecified essential hypertension documented in this encounter Care Teams Helper Marble Finisher Relationship Specialty Start Date End Date Corey Hernández MD [address] [place] [phone] PCP - General INTERNAL MEDICINE 02/25/21 documented as of this encounter
--- OUTSIDE RECORDS SUMMARY | 2024-09-30 09:12 | XMS_ITS | Encounter Summary ---
Author Organization [facility] Address [address] [place] [address]. [place], [place] [address] [place] [address] Care Team Providers Care Farm Reporter Name Role Phone Corey Angel MD Primary Care Provider [phone] Encounter Details Date Type Department Care Team (Latest Contact Info) Description 07/13/2023 Travel Social History Tobacco Use Types Packs/Day Years Used Date Smoking Tobacco: Never Smokeless Tobacco: Never Sex and Gender Information Value Date Recorded Sex Assigned at Not on file Legal Sex Male 5:37 PM CDT Gender Identity Not on file Sexual Orientation Not on file documented as of this encounter Plan of Treatment Not on file documented as of this encounter Visit Diagnoses Not on filedocumented in this encounter Care Teams Farm Reporter Relationship Specialty Start Date End Date Corey Angel MD [address] [place] [id number] PCP - General INTERNAL MEDICINE 02/25/21 documented as of this encounter
--- OUTSIDE RECORDS SUMMARY | 2024-09-30 09:12 | XMS_ITS | Encounter Summary ---
Author Organization [facility] Address [address] [place] [address]. [place] [address] [place] [address] Care Team Providers Care Senior Data Architect Name Role Phone Corey Angel MD Primary Care Provider [phone] Reason for Visit * Reason Onset Date Comments Results 07/11/2023 Encounter Details Date Type Department Care Team (Late st Contact Info) Description 07/11/[address] [address] [place] [address] Results Social History Tobacco Use Types Packs/Day Years Used Date Smoking Tobacco: Never Smokeless Tobacco: Never Sex and Gender Information Value Date Recorded Sex Assigned at Not on file Legal Sex Male 5:37 PM CDT Gender Identity Not on file Sexual Orientation Not on file documented as of this encounter Progress Notes * Rama Saavedra RN - 07/11/2023 11:05 AM CDT Images from the original note were not included. MARTIN Gilmore RN Stable CTA- has appt this week Informed pt of the above per Therese. Pt verbalized understanding. documented in this encounter Plan of Treatment Not on file documented as of this encounter Visit Diagnoses Not on filedocumented in this encounter Care Teams Senior Data Architect Relationship Specialty Start Date End Date Corey Angel MD [address] [place] [address] PCP - General INTERNAL MEDICINE 02/25/21 documented as of this encounter
--- OUTSIDE RECORDS SUMMARY | 2024-09-30 09:12 | XMS_ITS | Encounter Summary ---
Author Organization [facility] Address [address] [place] [address]. [place], [place] [address] [place] [address] Care Team Providers Care Source Inspector Name Role Phone Corey Angel MD Primary Care Provider [phone] Encounter Details Date Type Department Care Team (Latest Contact Info) Description 01/18/2024 [place] Message [facility] [address] Diego Muse MD [address] [place] [address] [place] [address] [place] [address] Heart Monitor Status Social History Tobacco Use Types Packs/Day Years [...] on filedocumented in this encounter Care Teams Source Inspector Relationship Specialty Start Date End Date Corey Angel MD [address] [place] [address] PCP - General INTERNAL MEDICINE 02/25/21 documented as of this encounter
--- OUTSIDE RECORDS SUMMARY | 2024-09-30 09:12 | XMS_ITS | Encounter Summary ---
Author Organization [facility] Address [address] [place] [address]. [place], [place] [address] [place] [address] Care Team Providers Care Internet Project Manager Name Role Phone Corey Angel MD Primary Care Provider [phone] Encounter Details Date Type Department Care Team (Latest Contact Info) Description 07/07/2023 Travel Social History Tobacco Use Types Packs/Day [...] on filedocumented in this encounter Care Teams Internet Project Manager Relationship Specialty Start Date End Date Corey Angel MD [address] [place] [address] PCP - General INTERNAL MEDICINE 02/25/21 documented as of this encounter
--- OUTSIDE RECORDS SUMMARY | 2024-09-30 09:12 | XMS_ITS | Clinical Summary ---
Author Organization [facility] Address [facility]. [place], [place] [address] [place] [address] Care Team Providers Care Director Of Alumni Relations Name Role Phone Corey Angel MD Primary Care Provider [phone] Allergies No known active allergies Medications rosuvastatin (CRESTOR) 40 MG tablet Take 1 tablet (40 mg total) by mouth daily. 06/27/2022 Active icosapent ethyl (VASCEPA) 1 G capsule Take 1 capsule (1 g total) by mouth 2 (two) times daily. 05/27/2021 Active esomeprazole (NEXIUM 24HR) 20 MG capsule Take 1 capsule (20 mg total) by mouth daily. Active metoprolol succinate ER (TOPROL-XL) 25 MG 24 hr tablet Take 0.5 tablets (12.5 mg total) by mouth daily. Active azelastine (ASTELIN) 0.1 % nasal spray 1 spray by Nasal route as needed. 12/16/2022 Active Cholecalciferol 10 MCG (400 UNIT) Cap Take 600 Units by mouth daily. Active LORazepam (ATIVAN) 0.5 MG tablet Take 1 tablet (0.5 mg total) by mouth every 6 (six) hours as needed. 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 0 05/30/2018 Knee pain 04/22/2016 Resolved Problems Problem Noted Date Diagnosed Date Resolved Date Elevated blood pressure read ing without diagnosis of hypertension 07/16/2022 10/29/2022 Social History Tobacco Use Types Packs/Day Years Used Date Smoking Tobacco: Never Smokeless Tobacco: Never Tobacco Cessation:Counseling Given: Not Answered Sex and Gender Information Value Date Recorded Sex Assigned at Not on file Legal Sex Male 5:37 PM CDT Gender Identity Not on file Sexual Orientation Not on file Last Filed Vital Signs Vital Sign Reading Time Taken Comments Blood Pressure 106/78 12/09/2023 11:02 AM CDT Pulse 77 12/09/2023 11:02 AM CDT Temperature 36.6 ??C (97.8 ??F) 07/16/2022 1:27 PM CD T Respiratory Rate - - Oxygen Saturation 98% 12/09/2023 11: 02 AM CDT Inhaled Oxygen Concentration - - Weight 115.2 kg (253 lb 14.4 oz) 2023 11:02 AM CDT Height 180.3 cm (5' 11 ) 12/09/2023 11: 02 AM CDT Body Mass Index 35.41 12/09/2023 11:02 AM CDT Plan of Treatment Health Maintenance Due Date Last Done Comments ASCVD LDL 1950 ASCVD Statin 1950 Colorectal Cancer Screening Colonoscopy (10 Years) 1950 Hepatitis C 1969 DTaP, Tdap and Td Vaccines (1 - Tdap) 1970 RSV Immunization or 60+ Years (1 - Risk 60-74 years 1-dose series) 2011 Zoster Vaccines (2 of 3) 08/08/2016 06/13/2016 Annual Medicare Wellness Visit 2016 COVID-19 Vaccine ( - season) 2024 08/12/2021, 12/13/2020, 11/20/2020 Influenza Adult (#1) 2024 07/27/2023, 07/30/2022, 08/15/2019, Additional history exists Pneumococcal Vaccine: 65+ Years Completed 08/13/2022 Meningococcal Vaccine Aged Out No elsa barrett eligible based on patient's age to complete this topic RSV Immunizations Under 20 Months Aged Out No longer eligible based on patient's age to complete this topic Insurance HUMANA HUMANA Care Teams Director Of Alumni Relations Relationship Specialty Start Date End Date Corey Angel MD [address] [place] [phone] PCP - General INTERNAL MEDICINE 02/25/21
--- OUTSIDE RECORDS SUMMARY | 2024-09-30 09:12 | XMS_ITS | Encounter Summary ---
Author Organization [facility] Address [address] [place] [address]. [place], [place] [address] [place] [address] Care Team Providers Care Leaded Glass Installer Name Role Phone Corey Hernández MD Primary Care Provider [phone] Reason for Visit * Reason Onset Date Comments Holter Monitor 12/21/2023 * Imaging (Routine) - Closed Specialty Diagnoses / Procedures Referred By Niraliac t Referred To Contact CARDIOLOGY Diagnoses Bradycardia Palpitations Procedures CLINIC - OUTPATIENT EVENT RECORDER (ECG) UP TO 30 DAYS COMPLETE (Holter) Diego Muse MD [facility] [address] [place] [phone] Phone: tel: fax: Referral ID Status Reason Start Date Expiration Date Visits Re quested Visits Authorized [id number] Closed 12/09/2023 12/08/2024 1 1 Encounter Details Date Type Department Care Team (Late st Contact Info) Description 12/21/2023 12:00 PM CDT [facility]phone [facility] [address], [facility] [address] [place] [address] Dieog Muse MD [address] [facility] [address] [place] [phone] Holter Monitor Social History Tobacco Use Types Packs/Day Years Used Date Smoking Tobacco: Never Smokeless Tobacco: Never Sex and Gender Information Value Date Recorded Sex Assigned at Not on file Legal Sex Male 5:37 PM CDT Gender Identity Not on file Sexual Orientation Not on file documented as of this encounter Progress Notes * Nayeli Judge, Oncology Physician - 12/21/2023 10:18 AM CDT 7 Day BG Sent To Patient [phone] shipping [phone] return documented in this encounter Plan of Treatment Not on file documented as of this encounter Procedures Procedure Name Priority Date/Time Associated Diagnosis Comments EVENT RECORDER (ECG) UP TO 30 DAYS COMPLETE Routine 01/11/2024 10:37 AM CDT Bradycardia Palpitations documented in this encounter Results * CLINIC - OUTPATIENT EVENT RECORDER (ECG) UP TO 30 DAYS COMPLETE (Holter) (01/11/2024 10:37 AM CDT) Narrative [facility] - 01/11/2024 10:37 AM CDT EVENT MONITOR REPORT Patient Name: ??Clem Capellan : ??1950 Warble Saw Operator Date: 01/02/2024 [facility] [place] [employer] Former: ?? Dr. Muse PCP: ??COREY HERNÁNDEZ MD INDICATION: Arrhythmia DURATION OF MONITORIN days NUMBER OF TRANSMISSIONS: No patient transmission INTERPRETATION: Sinus rhythm, rates 45-1 12 with average rate 63 Periods of mild sinus bradycardia No pauses Low frequency PVCs Isolated 4.7-second run of accelerated idioventricular rhythm rate 100 3 short runs of nonsustained atrial tachycardia-11.7-second duration rate 120, 4.6-second duration rate 110, 3.4-second duration rate 110 IA 0.18, QRS 0.08, QTc 0.41 No ??symptoms noted CONCLUSION: Sinus rhythm, rates 45-112 with average rate 63 Periods of mild sinus bradycardia No pauses Low frequency PVCs Isolated 4.7-second run of accelerated idioventricular rhythm rate 100 3 short runs of nonsustained atrial tachycardia-11.7-second duration rate 120, 4.6-second duration rate 110, 3.4-second duration rate 110 IA 0.18, QRS 0.08, QTc 0.41 No ??symptoms noted us Diego Muse MD CV VASCULAR ORDERABLES Final Result [facility] documented in this encounter Visit Diagnoses Diagnosis Bradycardia Other specified cardiac dysrhythmias Palpitations documented in this encounter Care Teams Leaded Glass Installer Relationship Specialty Start Date End Date Corey Hernández MD [address] [place] [phone] PCP - General INTERNAL MEDICINE 02/25/21 documented as of this encounter
--- OUTSIDE RECORDS SUMMARY | 2024-09-30 09:12 | XMS_ITS | Encounter Summary ---
Author Organization [facility] Address [address] [place] [address]. [place], [place] [id number] [place] [address] Care Team Providers Care Graining Press Operator Name Role Phone Corey Hernández MD Primary Care Provider [phone] Reason for Referral * Imaging (Routine) - Closed Specialty Diagnoses / Procedures Referred By Contac t Referred To Contact RADIOLOGY Diagnoses Aneurysm of ascending aorta without rupture (CMS/HCC) Procedures CTA CHEST Diego Muse MD 3 [facility] [address] [place] [phone] Phone: tel: fax: Referral ID Status Reason Start Date Expiration Date Visits Re quested Visits Authorized [id number] Closed 12/09/2023 06/15/2024 1 1 * Imaging (Routine) - Closed Specialty Diagnoses / Procedures Referred By Contac t Referred To Contact CARDIOLOGY Diagnoses Bradycardia Palpitations Procedures CLINIC - OUTPATIENT EVENT RECORDER (ECG) UP TO 30 DAYS COMPLETE (Holter) Diego Muse MD 3 [facility] [address] [place] [phone] Phone: tel: fax: Referral ID Status Reason Start Date Expiration Date Visits Re quested Visits Authorized [id number] Closed 12/09/2023 12/08/2024 1 1 Reason for Visit * Reason Comments Coronary Artery Disease 5mo Aortic Valve Disorder Hypertension Encounter Details Date Type Department Care Team (Latest Contact Info) Description 12/09/2023 11:00 AM CDT Office Visit [facility] [phone] Diego Muse MD 3 [facility] [address] [place] [address] Coronary Artery Disease (5mo); Aortic Valve Disorder; Hypertension Social History Tobacco Use Types Packs/Day Years [...] Pulse 77 12/09/2023 11:02 AM CDT Temperature - - Respiratory Rate - - Oxygen Saturation 98% 12/09/2023 11: 02 AM CDT Inhaled Oxygen Concentration - - Weight 115.2 kg (253 lb 14.4 oz) 2023 11:02 AM CDT Height 180.3 cm (5' 11 ) 12/09/2023 11: 02 AM CDT Body Mass Index 35.41 12/09/2023 11:02 AM CDT documented in this encounter Progress Notes * Diego Muse MD - 12/09/2023 11:00 AM CDT Reason for Visit: Coronary Artery Disease (5mo), Aortic Valve Disorder, and Hypertension History of Present Illness: This very nice 73-year-old man has a history of thoracic ascending aortic aneurysm which was diagnosed at the time of CT calcium score done in March [address]. [address] Uzair Romo at [facility] cardiothoracicsurgery who told him that he was not [...] When he had his repeat appointment at [facility] they rechecked his aneurysm and it was [...] is having no cardiac symptoms at all. He has had episodes and is Apple Watch that showed bradycardia during sleeping in the 40s. He also notices when he is resting may be in the 50s. He went to [place] [facility] because his pulse was consistently over 100 and had a workup done in the ER. He was told there might be a thyroid problem. Recommendations and Plan: Will get the results of the lab work from [place]. If he does have hyperthyroidism which could Explain his faster pulse but I am skeptical because his pulse is slow at times and fast this time which would not be generally due to an endocrine problem. We will check a 7-day monitor. Call if he has symptoms. Continue healthy lifestyle. We will repeat his CT before his next appointment his previous CTs did not show consistent increase in size and some of the change may have been due to the flori urement variation. He will repeat the CT before his next appointment. He will return here in 6 months. Medications: Current Outpatient Medications: azelastine (ASTELIN) 0.1 % nasal spray, 1 spray by Nasal route as needed., Disp: , Rfl: Cholecalciferol 10 MCG (400 UNIT) Cap, Take 600 Units by mouth daily., Disp: , Rfl: esomeprazole (NEXIUM 24HR) 20 MG capsule, Take 1 capsule (20 mg total) by mouth daily., Disp: , Rfl: icosapent ethyl (VASCEPA) 1 G capsule, Take 1 capsule (1 g total) by mouth 2 (two) times daily., Disp: , Rfl: LORazepam (ATIVAN) 0.5 MG tablet, Take 1 tablet (0.5 mg total) by mouth every 6 (six) hours as needed., Disp: , Rfl: metoprolol succinate ER (TOPROL-XL) 25 MG 24 hr tablet, Take 0.5 tablets (12.5 mg total) by mouth daily., Disp: , Rfl: nitroglycerin (NITROSTAT) 0.4 MG SL tablet, Place 1 tablet (0.4 mg total) under the tongue every 5 (five) minutes as needed for Chest Pain (Maximum of 3 doses)., Disp: 25 tablet, Rfl: 2 rosuvastatin (CRESTOR) 40 MG tablet, Take 1 tablet (40 mg total) by mouth daily., Disp: , Rfl: Review [...] has been anxious about his aneurysm Vitals: 12/09/23 1102 BP: 106/78 Pulse: 77 Weight: 115.2 kg (253 lb 14.4 oz) Height: 1.803 m (5' 11 ) Body mass index is 35.41 kg/m??. Physical Exam Healthy man overweight Skin [...] atherosclerosis. Paraseptal emphysema. Bilateral gynecomastia Diagnoses/Impression: 1. Primary hypertension 2. Coronary artery disease due to calcified coronary lesion 3. Aneurysm of ascending aorta without rupture (CMS/HCC) 4. 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 Bradycardia Referring Provider: No ref. provider found PCP: COREY HERNÁNDEZ MD documented in this encounter Plan of Treatment Scheduled Orders Name Type Priority Associated Diagnoses Orde r Schedule CTA CHEST CT Routine Aneurysm of ascending aorta without rupture Expected: 05/21/2024 (Approximate), Expires: 12/08/2024 documented as of this encounter Results * CLINIC - OUTPATIENT EVENT RECORDER (ECG) UP TO 30 DAYS COMPLETE (Holter) (01/11/2024 10:37 AM CDT) N[facility]ative [facility] - 01/11/2024 10:37 AM CDT EVENT MONITOR REPORT Patient Name: ??Clem Capellan : ??1950 [employer] Date: 01/02/2024 Performed At: [facility] [place] Interpreting [facility] Adviser: ?? Dr. Muse PCP: ??COREY HERNÁNDEZ MD [...] duration rate 110, 3.4-second duration rate 110 [place] 0.18, QRS 0.08, QTc 0.41 No ??symptoms noted CONCLUSION: Sinus rhythm, rates 45-112 with average rate 63 Periods of mild sinus bradycardia No pauses Low frequency PVCs Isolated 4.7-second run of accelerated idioventricular rhythm rate 100 3 short runs of nonsustained atrial tachycardia-11.7-second duration rate 120, 4.6-second duration rate 110, 3.4-second duration rate 110 [place] 0.18, QRS 0.08, QTc 0.41 No ??symptoms noted us Diego Muse MD CV VASCULAR ORDERABLES Final Result [facility] documented in this encounter Visit Diagnoses Diagnosis Primary hypertension- Primary Unspecified essential hypertension Coronary artery disease due to calcified coronary lesion Aneurysm of ascending aorta without rupture (CMS/HCC) 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
--- OUTSIDE RECORDS SUMMARY | 2024-09-30 09:12 | XMS_ITS | Encounter Summary ---
Author Organization [facility] Address [address] [place] [address]. [place], [place] [address] [place] [address] Care Team Providers Care Sewage Plant Supervisor Name Role Phone Corey Angel MD Primary Care Provider Encounter Details Date Type Department Care Team (Latest Contact Info) Description 12/09/2023 Travel Social History Tobacco Use Types Packs/Day [...] on filedocumented in this encounter Care Teams Sewage Plant Supervisor Relationship Specialty Start Date End Date Corey Angel MD [address] [place] [phone] PCP - General INTERNAL MEDICINE 02/25/21 documented as of this encounter
--- OUTSIDE RECORDS SUMMARY | 2024-09-30 09:12 | XMS_ITS | Encounter Summary ---
Author Organization [facility] Address [facility]. [place], [place] [address] [place] [address] Care Team Providers Care Metal Rivet Machine Operator Name Role Phone Corey Angel MD Primary Care Provider [phone] Reason for Referral * Imaging (Routine) - Closed Specialty Diagnoses / Procedures Referred By Niraliac t Referred To Contact RADIOLOGY Diagnoses Aneurysm of ascending aorta without rupture (CMS/HCC) Procedures CTA CHEST CTA CHEST WWO CON Diego Cordero MD 3 [facility] [address] [place] [phone] Phone: tel: fax: Referral ID Status Reason Start Date Expiration Date Visits Re quested Visits Authorized [id number] Closed 04/29/2023 09/01/2023 1 1 Reason for Visit * Imaging (Routine) - Closed Specialty Diagnoses / Procedures Referred By Hoang zavala Referred To Contact RADIOLOGY Diagnoses Aneurysm of ascending aorta without rupture (CMS/HCC) Procedures CTA CHEST CTA CHEST WWO CON Diego Cordero MD 3 [facility] [address] [place] [phone] Phone: tel: fax: Referral ID Status Reason Start Date Expiration Date Visits Re quested Visits Authorized [id number] Closed 04/29/2023 09/01/2023 1 1 Encounter Details Date Type Department Care Team (Latest Contact Info) Description 07/07/2023 11:08 AM CDT - 07/07/2023 11:59 PM CDT Hospital Encounter [facility] [address] [place] [address] Diego Cordero MD 3 [facility] [place] [address] [place] [address] Discharge Disposition: Home or Self Care (Routine Discharge) Social History Tobacco Use Types Packs/Day Years Used Date Smoking Tobacco: Never Smokeless Tobacco: Never Sex and Gender Information Value Date Recorded Sex Assigned at Not on file Legal Sex Male 5:37 PM CDT Gender Identity Not on file Sexual Orientation Not on file documented as of this encounter Medications at Time of Discharge azelastine (ASTELIN) 0.1 % nasal spray 1 spray by Nasal route as needed. 12/16/2022 esomeprazole (NEXIUM 24HR) 20 MG capsule Take 1 capsule (20 mg total) by mouth daily. icosapent ethyl (VASCEPA) 1 G capsule Take 1 capsule (1 g total) by mouth 2 (two) times daily. 05/27/2021 LORazepam (ATIVAN) 0.5 MG tablet Take 1 tablet (0.5 mg total) by mouth every 6 (six) hours as needed. 06/08/2023 metoprolol succinate ER (TOPROL-XL) 25 MG 24 hr tablet Take 0.5 tablets (12.5 mg total) by mouth daily. rosuvastatin (CRESTOR) 40 MG tablet Take 1 tablet (40 mg total) by mouth daily. 06/27/2022 nitroglycerin (NITROSTAT) 0.[address] 1 tablet (0.4 mg total) under the tongue every 5 (five) minutes as needed for Chest Pain (Maximum of 3 doses). 25 tablet 2 04/29/2023 04/28/2024 documented as of this encounter Plan of Treatment Not on file documented as of this encounter Procedures Procedure Name Priority Date/Time Associated Diagnosis Comments CTA CHEST Routine 07/07/2023 1:04 PM CDT Aneurysm of ascending aorta without rupture documented in this encounter Results * CTA CHEST (07/07/2023 1:04 PM CDT) Anatomical Region Laterality Modality Chest Computed Tomogra phy 07/09/2023 3:11 AM CDT Impressions 07/09/2023 3:15 AM CDT IMPRESSION: Fusiform aneurysmal aortic root and ascending, without change from 04/20/2021. Referred By: DIEGO CORDERO Interpreted By: Ajit Hudson MD, 07/09/2023 3:11 AM Narrative 07/09/2023 3:15 AM CDT EXAMINATION: CT angiogram chest without and ??with contrast EXAM DATE: 07/07/2023 11:41 AM INDICATION: Aortic aneurysm evaluation TECHNIQUE: Before and after administration of 100 mL Isovue-370 IV contrast, arterial phase multidetector CT images were obtained through the chest, abdomen, and pelvis. Multiplanar and MIP images were created and reviewed. ??In addition, 3D image processing was performed on a separate workstation by a technologist, with images sent to PACS for review. ??A dose lowering technique was used for this procedure, which may include, but is not limited to, dose reduction techniques, automated exposure control, the use of a iterative reconstruction, and ALARA (as low as reasonably achievable)/image gently techniques. COMPARISON: 04/20/2021 FINDINGS: The aortic root at the sinuses of Valsalva measures 4.2 cm. ??Sinotubular junction 3.6 cm. ??Ascending aorta 4.4 cm. Aortic arch 3.1 cm. ??Descending thoracic aorta 3.3 cm. ??Abdominal aorta 2.2 cm. ??No interval change in the diameter of the aortic root and ascending aorta from 04/20/2021. ??No aortic dissection. ??No pulmonary artery embolism. ??Coronary artery calcium. ??No pericardial effusion. ??Patent bilateral common carotid, vertebral, and subclavian arteries. ??Patent celiac and superior mesenteric and renal arteries. Patent main airways. ??Mild fibrotic lung changes. ??This includes honeycombing. ??No pneumothorax or pleural effusion. ??No adenopathy. ??No acute finding of upper abdomen. ??Prior cholecystectomy. ??Degenerative change in the spine. ??Bones appear osteoporotic. Procedure Note Ajit Hudson MD - 07/09/2023 EXAMINATION: CT angiogram chest without and with contrast EXAM DATE: 07/07/2023 11:41 AM INDICATION: Aortic aneurysm evaluation TECHNIQUE: Before and after administration of 100 mL Isovue-370 IVcontrast, arterial phase multidetector CT images were obtained through thechest, abdomen, and pelvis. Multiplanar and MIP images were created andreviewed. In addition, 3D image processing was performed on a separateworkstation by a technologist, with images sent to PACS for review. Adose lowering technique was used for this procedure, which may include,but is not limited to, dose reduction techniques, automated exposurecontrol, the use of a iterative reconstruction, and ALARA (as low asreasonably achievable)/image gently techniques. COMPARISON: 04/20/2021 FINDINGS: The aortic root at the sinuses of Valsalva measures 4.2 cm. Sinotubularjunction 3.6 cm. Ascending aorta 4.4 cm. Aortic arch 3.1 cm. Descending thoracic aorta 3.3 cm. Abdominal aorta2.2 cm. No interval change in the diameter of the aortic root andascending aorta from 04/20/2021. No aortic dissection. No pulmonaryartery embolism. Coronary artery calcium. No pericardial effusion.Patent bilateral common carotid, vertebral, and subclavian arteries.Patent celiac and superior mesenteric and renal arteries. Patent main airways. Mild fibrotic lung changes. This includeshoneycombing. No pneumothorax or pleural effusion. No adenopathy. Noacute finding of upper abdomen. Prior cholecystectomy. Degenerativechange in the spine. Bones appear osteoporotic. IMPRESSION: Fusiform aneurysmal aortic root and ascending, without change from04/20/2021. Referred By: DIEGO CORDERO Interpreted By: Ajit Hudson MD, 07/09/2023 3:11 AM us Diego Cordero MD CT Final Result documented in this encounter Visit Diagnoses Diagnosis Aneurysm of ascending aorta without rupture (CMS/HCC) documented in this encounter Administered Medications Inactive Administered Medications - up to 3 most recent administrations Medication Order MAR Action Action Date Dose Rate Site iopamidol (ISOVUE-370) 76 % injection 100 mL 100 mL, Intravenous, IMG once as needed, Contrast, 1 dose, Starting on Treri 07/07/23 at 1304, Until Terri 07/07/23 at 1304 Given 07/07/2023 1:04 PM CDT 100 mLs R ight Arm documented in this encounter Care Teams Metal Rivet Machine Operator Relationship Specialty Start Date End Date Corey Angel MD [address] [place] [address] PCP - General INTERNAL MEDICINE 02/25/21 documented as of this encounter
--- OUTSIDE RECORDS SUMMARY | 2024-09-30 09:13 | XMS_ITS | Encounter Summary ---
Author Organization [facility] Address [address] [place] [address]. [place] [address] [place] [address] Care Team Providers Care Curing Bin Operator Name Role Phone Corey Hernández MD Primary Care Provider [phone] Reason for Visit * Reason Comments Follow Up Coronary Artery Disease Heart Problem Aneurysm of ascendin g aorta without rupture Encounter Details Date Type Department Care Team (Latest Contact Info) Description 10/29/2022 10:00 AM LEAD CONSULTANT Office Visit [facility] [phone] Diego Cordero MD [address] [place] [address] [place] [phone] Follow Up; Coronary Artery Disease; Heart Problem (Aneurysm of ascending aorta without rupture ) Social History Tobacco Use Types Packs/Day Years Used Date Smoking Tobacco: Never Assessed Sex and Gender Information Value Date Recorded Sex Assigned at Not on file Legal Sex Male 5:37 PM CDT Gender Identity Not on file Sexual Orientation Not on file COVID-19 Exposure Response Date Recorded In the last 10 days, have yo u been in contact with someone who was confirmed or suspected to have Coronavirus/COVID-19? No / Unsure 10/29/2022 9:54 AM LEAD CONSULTANT documented as of this encounter Last Filed Vital Signs Vital Sign Reading Time Taken Comments Blood Pressure 134/70 10/29/2022 10:09 AM LEAD CONSULTANT Pulse 91 10/29/2022 10:09 AM LEAD CONSULTANT Temperature - - Respiratory Rate - - Oxygen Saturation 98% 10/29/2022 10: 09 AM LEAD CONSULTANT Inhaled Oxygen Concentration - - Weight 119.8 kg (264 lb 1.6 oz) 023 10:09 AM LEAD CONSULTANT Height 180.3 cm (5' 11 ) 10/29/2022 10: 09 AM LEAD CONSULTANT Body Mass Index 36.83 10/29/2022 10:09 AM LEAD CONSULTANT documented in this encounter Progress Notes * Diego Cordero MD - 10/29/2022 10:00 AM CST Reason for Visit: Follow Up, Coronary Artery Disease, and Heart Problem (Aneurysm of ascending aorta without rupture ) History of Present Illness: This very nice 71-year-old man has a history of thoracic ascending aortic aneurysm which was diagnosed at the time of CT calcium score done in March [address]. [address] Uzair Romo at [facility] cardi[facility]acicsurgery who told him that he was [...] When he had his repeat appointment at [facility] they rechecked his aneurysm and it [...] thought it was a cervical spine problem. Recommendations and Plan: This patient does have CAD manifested by abnormal coronary calcium score he also has an ascending aortic aneurysm which is stable in size. The pain he had is most likely related to cervical spine disease. He does have restricted motion of his cervical spine. He never did get the stress test which suggested schedule so we will go ahead and reschedule it. I would repeat his chest CT in a year to rep eat check his aortic ascending aortic aneurysm. He was diagnosed with hypertension at [facility] and started on metoprolol. I agree with this. His blood pressure is well controlled. His echo July did show mild LVH mild the patient does aortic root and aorta. We will proceed with a stress Myoview. I addy l see him in 6 months. Continue good risk factor control. He has lost weight and easily taken care of himself. Medications: Current Outpatient Medications: ??? esomeprazole (NEXIUM 24HR) 20 MG capsule, Take 20 mg by mouth daily., Disp: , Rfl: ??? icosapent ethyl (VASCEPA) 1 G capsule, Take 1 g by mouth 2 (two) times daily., Disp: , Rfl: ??? metoprolol succinate ER (TOPROL-XL) 25 MG 24 hr tablet, Take 12.5 mg by mouth daily., Disp: , Rfl: ??? rosuvastatin (CRESTOR) 40 MG tablet, Take 40 mg by mouth daily., Disp: , Rfl: No Known Allergies History reviewed. No pertinent past medical history. History reviewed. No pertinent surgical history. No family history on file. No family [...] to work again because of the pandemic. ?? Review of Systems General no fever chills [...] has been anxious about his aneurysm Vitals: 10/29/22 1009 BP: 134/70 Pulse: 91 Weight: 119.8 kg (264 lb 1.6 oz) Height: 5' 11 (1.803 m) Body mass index is 36.83 kg/m??. Physical Exam Healthy man overweight Skin [...] Mental status alert coherent cooperative Gait normal 08-04-[address] FINDINGS: Vascular findings: Coronary artery atherosclerosis. ??Unchanged mild dilation of the ascending thoracic aorta. Aortic measurements: Sinuses of Valsalva: Commissure to commissure: 4.3 x 4.5 x 3.9 cm, previously 4.4 x 4.3 x 4.1 cm. ??Cusp to cusp: 4.6 x 4.8 cm, previously [...] 3.2 cm. Nonvascular findings: Paraseptal emphysema bilaterally. ??Atelectasis is noted in the lung bases. ??Small hiatal hernia. ??Decreased bone mineralization is noted within the mid to lower thoracic spine. IMPRESSION: Stable dilation of the thoracic aorta with measurements detailed above. Dictated by: Sukhdeep Ozuna M.D. 10/29/2022 EKG sinus rhythm borderline voltage for [...] Left circumflex: 105 Right coronary artery: 76.0 ?? Total score: 559 ?? The total calcium score is 559. This [...] demonstrating the population risk stratification for males. ??Annular calcifications of the aortic valve. ?? Ascending aorta dilatation, measuring 4.4 cm. ?? Coronary artery calcification is a specific marker for coronary atherosclerosis. The amount of calcification correlates with severity of coronary atherosclerosis. ?? Paraseptal emphysema. ??Bilateral gynecomastia Diagnoses/Impression: 1. Chest pain, unspecified type ELECTROCARDIOGRAM 2. Coronary artery disease due to calcified coronary lesion 3. Hypercholesterolemia 4. Aneurysm of ascending aorta without rupture 5. Primary hypertension Referring Provider: No ref. provider found PCP: COREY HERNÁNDEZ MD CONSULTANT documented in this encounter Plan of Treatment Not on file documented as of this encounter Procedures Procedure Name Priority Date/Time Associated Diagnosis Comments ELECTROCARDIOGRAM (NON MIDMARK ACQUIRED) Routine 10/29/2022 10:32 AM LEAD CONSULTANT Chest pain, unspecified type documented in this encounter Results * ELECTROCARDIOGRAM (10/29/2022 10:32 AM LEAD CONSULTANT) 10/29/2022 10:3 2 AM LEAD CONSULTANT [facility] CARDIOVASCULAR - 11/01/2022 4:56 PM LEAD CONSULTANT ? [facility] ?[address] [place] [address] ? Test Date: ?2022-10-29 Pat Name: ? NALLELY TIMI ? Department: ?? 177 ? Room: ? Gender: ? Male ? Retail Salesperson: ?? : ?1950 ? Requested By: DIEGO CORDERO Order Number: [id number] ?Reading MD: ?? Diego Cordero ? Measurements Intervals ?[place] ? Rate: ? 78 ? P: ?35 DE: ? 174 ?QRS: ?-1 QRSD: ? 97 ? T: ?26 QT: ? 371 ? QTc: ?423 ? Interpretive Statements SINUS RHYTHM MODERATE VOLTAGE CRITERIA FOR LVH, CONSIDER NORMAL VARIANT CONSULTANT Procedure Note Diego Cordero MD - 11/01/[address], [place] [address] Test Date: 2022-10-29 Pat Name: NALLELY MEJIA Department: 177 Room: Gender: Male Retail Salesperson: : 1950 Requested By: DIEGO CORDERO Order Number: [id number] Reading MD: Diego Cordero Measurements Intervals [place] Rate: 78 P: 35 DE: 174 QRS: -1 QRSD: 97 T: 26 QT: 371 QTc: 423 Interpretive Statements SINUS RHYTHM MODERATE VOLTAGE CRITERIA FOR LVH, CONSIDER NORMAL VARIANT CONSULTANT us Diego Cordero MD PROCEDURES-ORDERABLE NO CHARG E Final Result [facility] documented in this encounter Visit Diagnoses Diagnosis Chest pain, unspecified type- Primary Coronary artery disease due to calcified coronary lesion Hypercholesterolemia Pure hypercholesterolemia Aneurysm of ascending aorta without rupture (CMS/HCC) Primary hypertension Unspecified essential hypertension documented in this encounter Care Teams Curing Bin Operator Relationship Specialty Start Date End Date Corey Hernández MD [address] [place] [address] PCP - General INTERNAL MEDICINE 02/25/21 documented as of this encounter
--- OUTSIDE RECORDS SUMMARY | 2024-09-30 09:13 | XMS_ITS | Encounter Summary ---
Author Organization [facility] Address [address] [place] [address]. [place], [place] [address] [place] [address] Care Team Providers Care Lube Man Name Role Phone Corey Angel MD Primary Care Provider [phone] Reason for Referral * Imaging (Routine) - Closed Specialty Diagnoses / Procedures Referred By Contac t Referred To Contact RADIOLOGY Diagnoses Chest pain Benign essential HTN CAD (coronary artery disease) Procedures NM EXER NUC STRESS TEST 1DAY Diego Muse MD [address] [facility] [address] [place] [phone] Phone: tel: fax: Referral ID Status Reason Start Date Expiration Date Visits Re quested Visits Authorized [id number] Closed 12/13/2022 03/12/2023 2 2 LATOR OPERATOR Encounter Details Date Type Department Care Team (Late st Contact Info) Description 10/29/2022 Orders Only [facility] [address] [facility] [address] [place] [address] Diego Muse MD [address] [facility] [address] [place] [phone] Social History Tobacco Use Types Packs/Day Years [...] Coronavirus/COVID-19? No / Unsure 10/29/2022 9:54 AM ESCALATOR OPERATOR documented as of this encounter Plan of Treatment Not on file documented as of this encounter Results * NM EXER NUC STRESS TEST 1DAY (12/13/2022 2:30 PM CDT) Anatomical Region Laterality Modality Cardiac Nuclear Medicine 12/13/2022 12:5 2 PM CDT Diego Muse MD NUC MED Final Result documented in this encounter Visit Diagnoses Diagnosis Chest pain- Primary Chest pain, unspecified Benign essential HTN Essential hypertension, benign CAD (coronary artery disease) Coronary atherosclerosis of unspecified type of vessel, tanacross or graft documented in this encounter Care Teams Lube Man Relationship Specialty Start Date End Date Corey Angel MD [address] [place] [phone] PCP - General INTERNAL MEDICINE 02/25/21 documented as of this encounter
--- OUTSIDE RECORDS SUMMARY | 2024-09-30 09:13 | XMS_ITS | Encounter Summary ---
Author Organization [facility] [place] Address [address] [place] [address]. [place] [address] [place] [address] Care Team Providers Care Medical Collections Specialist Name Role Phone Corey Hernández MD Primary Care Provider [phone] Reason for Visit * Reason Comments Heart Problem Encounter Details Date Type Department Care Team (Late st Contact Info) Description 07/16/2022 1:30 PM CDT Office Visit [facility] [phone] Diego Muse MD [address] [place] [address] [place] [phone] Heart Problem Social History Tobacco Use Types Packs/Day Years [...] suspected to have Coronavirus/COVID-19? No / Unsure 07/16/2022 1:18 PM CDT documented as of this encounter Last Filed Vital Signs Vital Sign Reading Time Taken Comments Blood Pressure 146/92 07/16/2022 1:27 PM CDT Pulse 98 07/16/2022 1:27 PM CDT Temperature 36.6 ??C (97.8 ??F) 07/16/2022 1:27 PM CD T Respiratory Rate - - Oxygen Saturation 98% 07/16/2022 1:27 PM CDT Inhaled Oxygen Concentration - - Weight 128.4 kg (283 lb) 07/16/2022 1:27 PM CDT Height - - Body Mass Index - - documented in this encounter Progress Notes * Diego Muse MD - 07/16/2022 1:30 PM CDT Reason for Visit: No chief complaint on file. History of Present Illness: This very nice 8-year-old man has a history of thoracic ascending aortic aneurysm which was diagnosed at the time of CT calcium score done in March 2021. He saw Dr. Uzair Romo at [facility] cardiothoracic surgery who told him that he was not impressed by this. Since that time Dr. Romo has moved out of town. The patient does not have a history of hypertension or diabetes he is treated for hypercholesterolemia. His blood pressure fluctuates but has never been treated. He does not check it on a regular basis. His does have a blood pressure cuff. He does have a history of exertional shortness of breath with moderate activities no chest tightness palpitations or syncope. He does not have a family history of aortic aneurysm. His father at 83 of congestive heart failure. Recommendations and Plan: We had a general talk regarding thoracic aneurysm. My last check was not in a life-threatening size. We will recheck a CTA of the chest to resize aorta. Also check a perfusion stress test to evaluatehis moderate coronary calcification and CAD. I will check an echocardiogram to evaluate his LV sizefunction and aortic valve calcification. He will get the stress test done in about 2 months no duty CAT scan and echo before that. There is a question whether he has hypertension which need to be resolved. I told him to check his blood pressure daily for the next 2 weeks and call to us. I told him proper blood pressure technique. He has a blood pressure cuff at home. He will see me after the stress test and we will make further recommendations. He is treated for CAD with rosuvastatin. He is also on Vascepa. He may benefit from baby aspirin as well. I told him we talked about this again after the stress test. Medications: Current Outpatient Medications: ??? icosapent ethyl (VASCEPA) 1 G capsule, Take 1 g by mouth 2 (two) times daily., Disp: , Rfl: ??? esomeprazole (NEXIUM 24HR) 20 MG capsule, Take 20 mg by mouth daily., Disp: , Rfl: ??? rosuvastatin (CRESTOR) 40 MG tablet, Take 40 mg by mouth daily., Disp: , Rfl: No Known Allergies No past medical history on file. No past surgical history on file. No family history on file. No family [...] has been anxious about his aneurysm Vitals: 07/16/22 1327 BP: (!) 146/92 Patient Position: Sitting BP Location: Right arm Pulse: 98 Temp: 97.8 ??F (36.6 ??C) Weight: 128.4 kg (283 lb) There is no height or weight on file to calculate BMI. Physical Exam 138/84 Healthy man overweight Skin warm and dry head normocephalic Eyes no icterus Ears normal Mouth mask Neck no JVD or thyromegaly Lungs clear Card exam is regular S1-S2 normal no murmur gallop. PMI not well palpated Abdomen no organomegaly no aneurysm Extremities no edema clubbing or cyanosis 2+ dorsalis pedis radial carotid pulses no carotid bruits Neuro no focal abnormality Mental status alert coherent cooperative Gait normal 04-21-21 CT Ca score Left main: 0 [...] of coronary atherosclerosis. Paraseptal emphysema. Bilateral gynecomastia. Referred By: COREY HERNÁNDEZ Diagnoses/Impression: 1. Coronary artery disease due to calcified coronary lesion 2. Aneurysm of ascending aorta without rupture 3. Aortic valve calcification 4. Hypercholesterolemia 5. Elevated blood pressure reading without diagnosis of hypertension Referring Provider: No ref. provider found PCP: COREY HERNÁNDEZ MD documented in this encounter Plan of Treatment Not on file documented as of this encounter Visit Diagnoses Diagnosis Coronary artery disease due to calcified coronary lesion- Primary Aneurysm of ascending aorta without rupture (CMS/HCC) Aortic valve calcification Aortic valve disorders Hypercholesterolemia Pure hypercholesterolemia Elevated blood pressure reading without diagnosis of hypertension documented in this encounter Care Teams Medical Collections Specialist Relationship Specialty Start Date End Date Corey Hernández MD [address] [place] [address] PCP - General INTERNAL MEDICINE 02/25/21 documented as of this encounter
--- OUTSIDE RECORDS SUMMARY | 2024-09-30 09:13 | XMS_ITS | Encounter Summary ---
Author Organization [facility] Address [address] [place] [address]. [place], [place] [address] [place] [address] Care Team Providers Care Paradi Tender Name Role Phone Corey Angel MD Primary Care Provider [phone] Encounter Details Date Type Department Care Team (Late st Contact Info) Description 12/14/2022 170 Systems Message Enc [facility], [address] [address] Mychart, [facility] Provider Stress test Social History Tobacco Use Types Packs/Day Years [...] suspected to have Coronavirus/COVID-19? No / Unsure 12/13/2022 12:22 PM CDT documented as of this encounter Plan of Treatment Not on file documented as of this encounter Visit Diagnoses Not on filedocumented in this encounter Care Teams Paradi Tender Relationship Specialty Start Date End Date Corey Angel MD [address] [place] [phone] PCP - General INTERNAL MEDICINE 02/25/21 documented as of this encounter
--- OUTSIDE RECORDS SUMMARY | 2024-09-30 09:13 | XMS_ITS | Encounter Summary ---
Author Organization [facility] Address [address] [place] [address]. [place] [address] [place] [address] Care Team Providers Care Granite Cutter Apprentice Name Role Phone Corey Hernández MD Primary Care Provider [phone] Reason for Visit * Reason Comments Follow Up 6 months Chest Pain Heart Problem CAD Encounter Details Date Type Department Care Team (Latest Contact Info) Description 04/29/2023 11:30 AM CDT Office Visit [facility] [address] Diego Muse MD 3 [facility] [address] [place] [phone] Follow Up (6 months); Chest Pain; Heart Problem (CAD) Social History Tobacco Use Types Packs/Day Years Used Date Smoking Tobacco: Never Smokeless Tobacco: Never Sex and Gender Information Value Date Recorded Sex Assigned at Not on file Legal Sex Male 5:37 PM CDT Gender Identity Not on file Sexual Orientation Not on file documented as of this encounter Last Filed Vital Signs Vital Sign Reading Time Taken Comments Blood Pressure 112/82 04/29/2023 11:36 AM CDT Pulse 66 04/29/2023 11:36 AM CDT Temperature - - Respiratory Rate - - Oxygen Saturation 97% 04/29/2023 11: 36 AM CDT Inhaled Oxygen Concentration - - Weight 114.9 kg (253 lb 4.8 oz) 023 11:36 AM CDT Height 180.3 cm (5' 11 ) 04/29/2023 11: 36 AM CDT Body Mass Index 35.33 04/29/2023 11:36 AM CDT documented in this encounter Progress Notes * Diego Muse MD - 04/29/2023 11:30 AM CDT Reason for Visit: No chief complaint on file. History of Present Illness: This very nice 72-year-old man has a history of thoracic ascending aortic aneurysm which was diagnosed at the time of CT calcium score done in March [address]. [address] [facility] who told him that he [...] When he had his repeat appointment at [facility] they rechecked his aneurysm and it was [...] without exertion. He is moderately physically active. Recommendations and Plan: Patient's perfusion stress that showed no clear ischemia. His chest discomfort is noncardiac. He does have coronary artery disease manifested by his high calcium score. Excellent control of his risk factors is recommended. We will repeat his chest CTa to reevaluate his aneurysm. I will see him in after the chest CTa . If he has prolonged recurrent sustained chest tightness advised to go to emergency room. We did give him an order for nitroglycerin, use it. Medications: Current Outpatient Medications: esomeprazole (NEXIUM 24HR) 20 MG capsule, Take 20 mg by mouth daily., Disp: , Rfl: icosapent ethyl (VASCEPA) 1 G capsule, Take 1 g by mouth 2 (two) times daily., Disp: , Rfl: metoprolol succinate ER (TOPROL-XL) 25 MG 24 hr tablet, Take 12.5 mg by mouth daily., Disp: , Rfl: rosuvastatin (CRESTOR) 40 MG tablet, Take 40 [...] He has been anxious about his aneurysm There were no vitals filed for this visit. There is no height or weight on file to calculate BMI. Physical Exam Healthy man overweight Skin warm [...] coronary atherosclerosis. Paraseptal emphysema. Bilateral gynecomastia Diagnoses/Impression: No diagnosis found. Referring Provider: No ref. provider found PCP: COREY HERNÁNDEZ MD documented in this encounter Plan of Treatment Not on file documented as of this encounter Visit Diagnoses Diagnosis Coronary artery disease due to calcified coronary lesion- Primary Aneurysm of ascending aorta without rupture (CMS/HCC) Primary hypertension Unspecified essential hypertension Hypercholesterolemia Pure hypercholesterolemia documented in this encounter Care Teams Granite Cutter Apprentice Relationship Specialty Start Date End Date Corey Hernández MD [address] [place] [address] PCP - General INTERNAL MEDICINE 02/25/21 documented as of this encounter
--- OUTSIDE RECORDS SUMMARY | 2024-09-30 09:13 | XMS_ITS | Encounter Summary ---
Author Organization [facility] Address [address] [place] [address]. [place], [place] [address] [place] [address] Care Team Providers Care Fruit Picker Name Role Phone Corey Angel MD Primary Care Provider [phone] Encounter Details Date Type Department Care Team (Latest Contact Info) Description 04/29/2023 Travel Social History Tobacco Use Types Packs/Day [...] on filedocumented in this encounter Care Teams Fruit Picker Relationship Specialty Start Date End Date Corey Angel MD [address] [place] [phone] PCP - General INTERNAL MEDICINE 02/25/21 documented as of this encounter
--- OUTSIDE RECORDS SUMMARY | 2024-09-30 09:13 | XMS_ITS | Encounter Summary ---
Author Organization [facility] Address [address] [place] [address]. [place], [place] [address] [place] [address] Care Team Providers Care [place] Dental Lab Technician Name Role Phone Corey Angel MD Primary Care Provider [phone] Encounter Details Date Type Department Care Team (Latest Contact Info) Description 08/24/2022 Travel Social History Tobacco Use Types Packs/Day [...] suspected to have Coronavirus/COVID-19? No / Unsure 08/24/2022 8:46 AM PATIENT SERVICE ASSOCIATE documented as of this encounter Plan of Treatment Not on file documented as of this encounter Visit Diagnoses Not on filedocumented in this encounter Care Teams [employer] [place] [employer] Dental Lab Technician Relationship Specialty Start Date End Date Corey Angel MD [address] [place] [phone] PCP - General INTERNAL MEDICINE 02/25/21 documented as of this encounter
--- OUTSIDE RECORDS SUMMARY | 2024-09-30 09:13 | XMS_ITS | Encounter Summary ---
Author Organization [facility] Address [address] [place] [address]. [place], [place] [address] [place] [address] Care Team Providers Care Cardiac Rehabilitation Program Director Name Role Phone Corey Angel MD Primary Care Provider [phone] Reason for Visit * Imaging (Routine) - Closed Specialty Diagnoses / Procedures Referred By Contac t Referred To Contact RADIOLOGY Diagnoses CAD (coronary artery disease) Ascending aortic aneurysm (CMS/HCC) Procedures USE ECHOCARDIOGRAM W CON USE ECHOCARDIOGRAM Diego Muse MD [address] [facility] [address] [place] [phone] Phone: tel: fax: Referral ID Status Reason Start Date Expiration Date Visits Re quested Visits Authorized [id number] Closed 07/20/2022 08/20/2023 1 1 Encounter Details Date Type Department Care Team (Latest Contact Info) Description 08/24/2022 8:47 AM GENERAL OFFICE ASSOCIATE - 08/24/2022 11:59 PM [facility] Encounter [facility] [place] [address] Diego Muse MD 3 [facility] [address] [place] [phone] Discharge Disposition: Home or Self Care (Routine Discharge) Social History Tobacco Use Types Packs/Day Years Used Date Smoking Tobacco: Never Assessed Sex and Gender Information Value Date Recorded Sex Assigned at Not on file Legal Sex Male 5:37 PM CDT Gender Identity Not on file Sexual Orientation Not on file COVID-19 Exposure Response Date Recorded In the last 10 days, have celestino pruett been in contact with someone who was confirmed or suspected to have Coronavirus/COVID-19? No / Unsure 08/24/2022 8:46 AM GENERAL OFFICE ASSOCIATE documented as of this encounter Medications at Time of Discharge esomeprazole (NEXIUM 24HR) 20 MG capsule Take 1 capsule (20 mg total) by mouth daily. icosapent ethyl (VASCEPA) 1 G capsule Take 1 capsule (1 g total) by mouth 2 (two) times daily. 05/27/2021 rosuvastatin (CRESTOR) 40 MG tablet Take 1 tablet (40 mg total) by mouth daily. 06/27/2022 documented as of this encounter Plan of Treatment Not on file documented as of this encounter Procedures Procedure Name Priority Date/Time Associated Diagnosis Comments USE ECHOCARDIOGRAM W CON Routine 08/24/2022 10:07 AM GENERAL OFFICE ASSOCIATE CAD (coronary artery disease) Ascending aortic aneurysm documented in this encounter Results * USE ECHOCARDIOGRAM W CON (08/24/2022 10:07 AM GENERAL OFFICE ASSOCIATE) Anatomical Region Laterality Modality NA Echocardiogram 08/24/2022 9:11 AM GENERAL OFFICE ASSOCIATE Narrative 08/24/2022 7:15 PM GENERAL OFFICE ASSOCIATE ?Echocardiography Report Pat.Name: ??NALLELY MEJIA ? Pat.ID: ?[id number] ? St.Date: ?? 08/24/2022 ? Refer.MD: ??[id number] GIL DIEGO Wooten Exam Time: 9:11:00 AM ? Study Type:ECHO WITH CARDIAC DOPPLER COMP Height: ?71 in ? Weight: ?283 lb ? BSA: ? 2.44 m2 ?Age: ??1950,71Y ? Sex: ? M ? BP: ?154/104 ? HR: ?71 bpm ?Sonogrphr: Melly Barakat RDCS ? Pat. Stat.:Outpatient ? Reason for Study:Coronary artery disease Procedures: 2D, M-mode, Doppler, Color Flow, Optison was used to enhance endocardial definition. The study quality is technically difficult. Race: ?W ? ++++++++++++++++++++++++++++++++++++ SUMMARY: ++++++++++++++++++++++++++++++++++++ The left ventricular size is normal. Estimated [...] Unable to reliably quantitate pulmonary systolic pressure. ++++++++++++++++++++++++++++++++++++ FINDINGS: ++++++++++++++++++++++++++++++++++++ LV: ? The left ventricular size is normal. Estimated left ?ventricular ejection fraction is 70-75%. Mild concentric ?left ventricular hypertrophy. Left ventricular diastolic ?function is normal. WM: ? Wall motion appears normal in all segments. RV: ? The right ventricular size is mildly enlarged. Right ?ventricular systolic function is normal. IVS: ?No evidence of ventricular septal defect. LA: ? The left atrial volume is normal ( less than 34 ml/M2). RA: ? Right atrial size is normal. IAS: ?Atrial septum not well visualized in all views. BEENA: ? No evidence of pericardial effusion. AO: ? Normal aortic root. Aortic root is mildly dilated. Ascending ?aorta is mildly dilated. The sinus of Valsalva measures ?4.2cm. The proximal ascending aorta measures 4.1cm. PA: ? Unable to reliably quantitate pulmonary systolic pressure. SVn: ?Inferior vena cava is normal. AV: ? The aortic valve is trileaflet. No evidence of aortic valve ?stenosis. No evidence of aortic valve regurgitation. MV: ? No evidence of mitral regurgitation. No evidence of mitral ?stenosis. PV: ? Structurally normal pulmonic valve. No evidence of pulmonic ?valve stenosis. No evidence of pulmonic regurgitation. TV: ? A trace of tricuspid regurgitation. No evidence of tricuspid ?valve stenosis. ++++++++++++++++++++++++++++++++++++ MEASUREMENTS: ++++++++++++++++++++++++++++++++++++ ?2D Left Ventricle ?? LVIDd ? 4.28 cm ?? (3.6-5.2) LVEDV BP ? 118 ml ?? LV EDV ? 112 ml ?LVESV BP ?33.8 ml ?? LV ESV ?29.6 ml ?LV EF ? 73.7 % ?? LV EDV ? 111 ml ?Left Ventricula -27.8 % ?? LV ESV ?39 ml ?LV EF ? 64.7 % ?? LV EF BP ?71.3 % ? Left Ventricula -16.1 % ?? Left Ventricula ?? -22 % ? Aortic Valve ?? Aortic Root Lynn ??4.07 cm ? AV cusp sep ? 2.11 cm ?? Left atrial lynn ??3.66 cm ? Left Atrium ?? Left Atrium Vol ??22.1 ml/m2 ? LA Biplane Left Atrium Vol ??53.9 ml ? LA Single Plane Left Atrium rachna ??5.27 cm ? Left Atrium rachna ??5.53 cm ?? Left Atrium Vol ??44.8 ml ? Left Atrium Vol ??62.7 ml ?? LV Teichholz Interventricula ??1.25 cm ? Left Ventricle ?? 2.18 cm ?? Left Ventricle ?? 1.27 cm ? Heart rate ?71 Heart beat per minute Right Atrium ?? RA sys Area ? 18 cm2 ? Right Ventricle ?? Right Ventricul ??3.44 cm ? RVIDd ? 4.34 cm ?MMODE Tricuspid Valve ?? Tricuspid annul ??2.32 cm ?DOPPLER PV Regurg Flow PV pkVel ?87 cm/s ? Aortic Valve ?? Cardiovascular ?? 2.02 cm ? LVOT/AoV (RANCH COOK) ( ??0.93 ? AV Antegrade Flow Peak Velocity ( ??1.16 m/s ?Mean Velocity ( ??0.84 m/s Velocity Time I ??24.5 cm ? AV Antegrade Flow Simplified Bernoulli Gradient pressu ?? 5.4 mmHg ? Gradient pressu ? 3 mmHg AV Continuity Equation by Velocity Time Integral Aortic Valve Ar ??3.15 cm2 ?AoV Area Index ?? 1.29 ? Left Ventricle ?? Stroke Volume ( ?77 ml ? Cardiac Output ?? 5.16 liter per minute LV Antegrade Flow Peak Velocity ( ??1.08 m/s ?Mean Velocity ( ??0.77 m/s Velocity Time I ?24 cm ? LV Antegrade Flow Simplified Bernoulli Gradient pressu ?? 4.7 mmHg ? Gradient pressu ?? 2.6 mmHg Mitral Valve ?? Mitral Valve E- 0.243 second ? Mean Myocardial ?? 6.8 centimeter/second Myocardial Velo ?? 7.5 centimeter/second Ratio of Mitral ??9.78 ? Myocardial Velo ? 6 centimeter/second Ratio of Mitral ??8.87 ? Mitral Valve E ?? 0.76 ?Ratio of Mitral ??11.1 ? MV Antegrade Flow Mitral Valve E- ??0.66 m/s ?Mitral Valve A- ??0.87 m/s PV Antegrade Flow PV Vmax (Diasto ??0.88 m/s ? PV Antegrade Flow Simplified Bernoulli PV PGmax (Systo ?? 3.1 mmHg ? PV Regurgitant Flow Pressure gradie ?? 3.1 mmHg ? Tricuspid Valve ?? Tricuspid Valve ??0.79 m/s ? <Electronic Signature> 08/24/2022 07:15 PM Diego Muse M.D. Procedure Note Diego Muse MD - 08/24/2022 Echocardiography Report Pat.Name: NALLELY MEJIA Pat.ID: [id number] St.Date: 08/24/2022 : [id number] GIL Wooten Exam Time: 9:11:00 AM Study Type:ECHO WITH CARDIAC DOPPLER COMP Height: 71 in Weight: 283 lb BSA: 2.44 m2 Age: 2 1950,71Y Sex: M BP: 154/104 HR: 71 bpm Sonogrphr: Melly Barakat [facility] Pat. Stat.:Outpatient Reason for Study:Coronary artery disease Procedures: 2D, M-mode, Doppler, Color Flow, Optison was used to enhance endocardial definition. The study quality is technically difficult. Race: W ++++++++++++++++++++++++++++++++++++ SUMMARY: ++++++++++++++++++++++++++++++++++++ The left ventricular size is normal. Estimated [...] Unable to reliably quantitate pulmonary systolic pressure. ++++++++++++++++++++++++++++++++++++ FINDINGS: ++++++++++++++++++++++++++++++++++++ LV: The left ventricular size is normal. Estimated left ventricular ejection fraction is 70-75%. Mild concentric left ventricular hypertrophy. Left ventricular diastolic function is normal. WM: Wall motion appears normal in all segments. RV: The right ventricular size is mildly enlarged. Right ventricular systolic function is normal. IVS: No evidence of ventricular septal defect. LA: The left atrial volume is normal ( less than 34 ml/M2). RA: Right atrial size is normal. IAS: Atrial septum not well visualized in all views. BEENA: No evidence of pericardial effusion. AO: Normal aortic root. Aortic root is mildly dilated. Ascending aorta is mildly dilated. The sinus of Valsalva measures 4.2cm. The proximal ascending aorta measures 4.1cm. PA: Unable to reliably quantitate pulmonary systolic pressure. SVn: Inferior vena cava is normal. AV: The aortic valve is trileaflet. No evidence of aortic valve stenosis. No evidence of aortic valve regurgitation. MV: No evidence of mitral regurgitation. No evidence of mitral stenosis. PV: Structurally normal pulmonic valve. No evidence of pulmonic valve stenosis. No evidence of pulmonic regurgitation. TV: A trace of tricuspid regurgitation. No evidence of tricuspid valve stenosis. ++++++++++++++++++++++++++++++++++++ MEASUREMENTS: ++++++++++++++++++++++++++++++++++++ 2D Left Ventricle LVIDd 4.28 cm (3.6-5.2) LVEDV BP 118 ml LV EDV 112 ml LVESV BP 33.8 ml LV ESV 29.6 ml LV EF 73.7 % LV EDV 111 ml Left Ventricula -27.8 % LV ESV 39 ml LV EF 64.7 % LV EF BP 71.3 % Left Ventricula -16.1 % Left Ventricula -22 % Aortic Valve Aortic Root Lynn 4.07 cm AV cusp sep 2.11 cm Left atrial lynn 3.66 cm Left Atrium Left Atrium Vol 22.1 ml/m2 LA Biplane Left Atrium Vol 53.9 ml LA Single Plane Left Atrium rachna 5.27 cm Left Atrium rachna 5.53 cm Left Atrium Vol 44.8 ml Left Atrium Vol 62.7 ml LV Teichholz Interventricula 1.25 cm Left Ventricle 2.18 cm Left Ventricle 1.27 cm Heart rate 71 Heart beat per minute Right Atrium RA sys Area 18 cm2 Right Ventricle Right Ventricul 3.44 cm RVIDd 4.34 cm MMODE Tricuspid Valve Tricuspid annul 2.32 cm DOPPLER PV Regurg Flow PV pkVel 87 cm/s Aortic Valve Cardiovascular 2.02 cm LVOT/AoV (RANCH COOK) ( 0.93 AV Antegrade Flow Peak Velocity ( 1.16 m/s Mean Velocity ( 0.84 m/s Velocity Time I 24.5 cm AV Antegrade Flow Simplified Bernoulli Gradient pressu 5.4 mmHg Gradient pressu 3 mmHg AV Continuity Equation by Velocity Time Integral Aortic Valve Ar 3.15 cm2 AoV Area Index 1.29 Left Ventricle Stroke Volume ( 77 ml Cardiac Output 5.16 liter per minute LV Antegrade Flow Peak Velocity ( 1.08 m/s Mean Velocity ( 0.77 m/s Velocity Time I 24 cm LV Antegrade Flow Simplified Bernoulli Gradient pressu 4.7 mmHg Gradient pressu 2.6 mmHg Mitral Valve Mitral Valve E- 0.243 second Mean Myocardial 6.8 centimeter/second Myocardial Velo 7.5 centimeter/second Ratio of Mitral 9.78 Myocardial Velo 6 centimeter/second Ratio of Mitral 8.87 Mitral Valve E 0.76 Ratio of Mitral 11.1 MV Antegrade Flow Mitral Valve E- 0.66 m/s Mitral Valve A- 0.87 m/s PV Antegrade Flow PV Vmax (Diasto 0.88 m/s PV Antegrade Flow Simplified Bernoulli PV PGmax (Systo 3.1 mmHg PV Regurgitant Flow Pressure gradie 3.1 mmHg Tricuspid Valve Tricuspid Valve 0.79 m/s <Electronic Signature> 08/24/2022 07:15 PM Diego Muse M.D. Diego Muse MD ECHO Final Result documented in this encounter Visit Diagnoses Diagnosis CAD (coronary artery disease) Coronary atherosclerosis of unspecified type of vessel, upper [place] or graft Ascending aortic aneurysm (CMS/HCC) Thoracic aneurysm without mention of rupture documented in this encounter Administered Medications Inactive Administered Medications - up to 3 most recent administrations Medication Order MAR Action Action Date Dose Rate Site perflutren protein A (OPTISON) injection 3 mL 3 mL, Intravenous, IMG once as needed, Contrast, 1 dose, Starting on Tue08/24/22 at 1007, Until Tue08/24/22 at 1008, Administer over 30-60 seconds. Follow with 10 mL saline flush. Given 08/24/2022 10:08 AM GENERAL OFFICE ASSOCIATE 3 mLs documented in this encounter Care Teams Cardiac Rehabilitation Program Director Relationship Specialty Start Date End Date Corey Angel MD [address] [place] [phone] PCP - General INTERNAL MEDICINE 02/25/21 documented as of this encounter
--- OUTSIDE RECORDS SUMMARY | 2024-09-30 09:13 | XMS_ITS | Encounter Summary ---
Author Organization [facility] Address [facility] [place] [address] [place] [address] Care Team Providers Care Retort Pre Cooker Name Role Phone Corey Angel MD Primary Care Provider [phone] Reason for Visit * Reason Onset Date Comments Schedule Test 04/27/2023 Patient had appt scheduled for 04/29/23 @ [place], but cancelled and is unable to make it. Before rescheduling, he thought he was due for another CT scan, but doesn't have an order; last CT done @ [facility]. Does he need CT scan before seeing Dr. Muse? Encounter Details Date Type Department Care Team (Late st Contact Info) Description 04/27/2023 Telephone [facility] [place] [address] [place] [address] Diego Muse MD 3 [facility] [address] [place] [address] Schedule Test (Patient had appt scheduled for 04/29/23 @ [facility], but cancelled and is unable to make it. Before rescheduling, he thought he was due for another CT scan, but doesn't have an order; last CT done @ [facility]. Does he need CT scan before seeing Dr. Muse?) Social History Tobacco Use Types Packs/Day Years Used Date Smoking Tobacco: Never Assessed Sex and Gender Information Value Date Recorded Sex Assigned at Not on file Legal Sex Male 5:37 PM CDT Gender Identity Not on file Sexual Orientation Not on file documented as of this encounter Progress Notes * Atiya Holt RN - 04/27/2023 2:16 PM CDT His annual CT will not be due until July. * Bianca Alamo CMA - 04/27/2023 2:07 PM CDTSummary: CT Scan Patient had appt scheduled for 04/29/23 @ [facility], but cancelled and is unable to make it. Before rescheduling, he thought he was due for another CT scan, but doesn't have an order; last CT done @ [facility]. Does he need CT scan before seeing Dr. Muse? documented in this encounter Plan of Treatment Not on file documented as of this encounter Visit Diagnoses Not on filedocumented in this encounter Care Teams Retort Pre Cooker Relationship Specialty Start Date End Date Corey Angel MD [address] [place] [phone] PCP - General INTERNAL MEDICINE 02/25/21 documented as of this encounter
--- OUTSIDE RECORDS SUMMARY | 2024-09-30 09:13 | XMS_ITS | Encounter Summary ---
Author Organization [facility] Address [address] [place] [address]. [place], [place] [address] [place] [address] Care Team Providers Care Washer Carcass Name Role Phone Corey Angel MD Primary Care Provider [phone] Encounter Details Date Type Department Care Team (Latest Contact Info) Description 04/20/2021 Travel Social History Tobacco Use Types Packs/Day Years Used Date Smoking Tobacco: Never Assessed Sex and Gender Information Value Date Recorded Sex Assigned at Not on file Legal Sex Male 5:37 PM CDT Gender Identity Not on file Sexual Orientation Not on file COVID-19 Exposure Response Date Recorded In the last month, have you been in contact with someone who was confirmed or suspected to have Coronavirus / COVID-19? No / Unsure 04/20/2021 3:09 PM CDT documented as of this encounter Plan of Treatment Not on file documented as of this encounter Visit Diagnoses Not on filedocumented in this encounter Care Teams Washer Carcass Relationship Specialty Start Date End Date Corey Angel MD [address] [place] [address] PCP - General INTERNAL MEDICINE 02/25/21 documented as of this encounter
--- OUTSIDE RECORDS SUMMARY | 2024-09-30 09:13 | XMS_ITS | Encounter Summary ---
Author Organization [facility] Address [address] [place] [address]. [place], [place] [address] [place] [address] Care Team Providers Care Honing Machine Operator Production Name Role Phone Corey Angel MD Primary Care Provider [phone] Encounter Details Date Type Department Care Team (Latest Contact Info) Description 12/13/2022 Travel Social History Tobacco Use Types Packs/Day [...] on filedocumented in this encounter Care Teams Honing Machine Operator Production Relationship Specialty Start Date End Date Corey Angel MD [address] [place] [phone] PCP - General INTERNAL MEDICINE 02/25/21 documented as of this encounter
--- OUTSIDE RECORDS SUMMARY | 2024-09-30 09:13 | XMS_ITS | Encounter Summary ---
Author Organization [facility] Address [address] [place] [address]. [place], [place] [address] [place] [address] Care Team Providers Care Packing Shed Supervisor Name Role Phone Corey Angel MD Primary Care Provider [phone] Reason for Visit * Reason Onset Date Comments Question 12/09/2022 Encounter Details Date Type Department Care Team (Late st Contact Info) Description 12/09/2022 [place] [address] Atiya Holt RN Question Social History Tobacco Use Types Packs/Day Years Used Date Smoking Tobacco: Never Assessed Sex and Gender Information Value Date Recorded Sex Assigned at Not on file Legal Sex Male 5:37 PM CDT Gender Identity Not on file Sexual Orientation Not on file documented as of this encounter Progress Notes * Atiya Holt RN - 12/09/2022 3:03 PM CDT Pt verbalized understanding, agreed with POC and denies any further questions or concerns. * Atiya Holt RN - 12/09/2022 2:01 PM CDT Calling today to ensure it is still safe to get stress test on Tuesday as he just got his Shingles vaccine Yesterday on Friday 12/08 documented in this encounter Plan of Treatment Not on file documented as of this encounter Visit Diagnoses Not on filedocumented in this encounter Care Teams Packing Shed Supervisor Relationship Specialty Start Date End Date Corey Angel MD [address] [place] [phone] PCP - General INTERNAL MEDICINE 02/25/21 documented as of this encounter
--- OUTSIDE RECORDS SUMMARY | 2024-09-30 09:13 | XMS_ITS | Encounter Summary ---
Author Organization [facility] Address [address] [place] [address]. [place], [place] [address] [place] [address] Care Team Providers Care Catering Staff Member Name Role Phone Corey Angel MD Primary Care Provider [phone] Reason for Visit * Reason Onset Date Comments Question 10/27/2022 Encounter Details Date Type Department Care Team (Late st Contact Info) Description 10/27/2022 [place] [address] Atiya Holt RN Question Social History Tobacco Use Types Packs/Day Years Used Date Smoking Tobacco: Never Assessed Sex and Gender Information Value Date Recorded Sex Assigned at Not on file Legal Sex Male 5:37 PM CDT Gender Identity Not on file Sexual Orientation Not on file documented as of this encounter Progress Notes * Atiya Holt RN - 10/27/2022 2:11 PM CST Pt verbalized understanding, agreed with POC and denies any further questions or concerns. Scheduled to see Dr. Muse on Tuesday. Advised also dr. Donovan Guerrero started Metoprolol 12.5mg daily. Med list updated. [employer] * Therese Carl, MARTIN - 10/27/2022 10:50 AM CST I would not expect him to feel his aneurysm. It looks like Dr. Muse had recommended a stress test, I would schedule if it has not been done. [employer] * Atiya Holt RN - 10/27/2022 10:39 AM CST Calling today to report have a slight pain to right where my thoracic aneuryms is Pain reported to left chest when twists upper body to the left, when returns to normal positioning pain resolves. Reports has been feeling my thoracic aneurysm for awhile Over a year. However, it was more sporadicat that time. Yesterday noted it more. With the twisting motion. No associated symptoms. IS due fora follow up, call sent down for scheduling. HR 70's bp this am 131/91 [employer] documented in this encounter Plan of Treatment Not on file documented as of this encounter Visit Diagnoses Not on filedocumented in this encounter Care Teams Catering Staff Member Relationship Specialty Start Date End Date Corey Angel MD [address] [place] [phone] PCP - General INTERNAL MEDICINE 02/25/21 documented as of this encounter
--- OUTSIDE RECORDS SUMMARY | 2024-09-30 09:13 | XMS_ITS | Encounter Summary ---
Author Organization [facility] Address [address] [place] [address]. [place], [place] [address] [place] [address] Care Team Providers Care Breaker Tender Name Role Phone Corey Angel MD Primary Care Provider [phone] Encounter Details Date Type Department Care Team (Latest Contact Info) Description 07/16/2022 Travel Social History Tobacco Use Types Packs/Day [...] on filedocumented in this encounter Care Teams Breaker Tender Relationship Specialty Start Date End Date Corey Angel MD [address] [place] [phone] PCP - General INTERNAL MEDICINE 02/25/21 documented as of this encounter
--- OUTSIDE RECORDS SUMMARY | 2024-09-30 09:13 | XMS_ITS | Encounter Summary ---
Author Organization [facility] Address [address] [place] [address]. [place], [place] [address] [place] [address] Care Team Providers Care Land Measurer Name Role Phone Corey Angel MD Primary Care Provider [phone] Reason for Referral * Procedure (Routine) - Closed Specialty Diagnoses / Procedures Referred By Contac t Referred To Contact Diagnoses Chest pain Benign essential HTN CAD (coronary artery disease) Coronary artery disease due to calcified coronary lesion Hypercholesterolemia Primary hypertension Procedures Stress test only, exercise [facility] [place] [address] Phone: tel: Referral ID Status Reason Start Date Expiration Date Visits Re quested Visits Authorized [id number] Closed 12/13/2022 12/14/2023 1 1 * Imaging (Routine) - Closed Specialty Diagnoses / Procedures Referred By Contac t Referred To Contact RADIOLOGY Diagnoses Chest pain Benign essential HTN CAD (coronary artery disease) Procedures NM EXER NUC STRESS TEST 1DAY Diego Muse MD 3 [facility] [address] [place] [address] Phone: tel: fax: Referral ID Status Reason Start Date Expiration Date Visits Re quested Visits Authorized [id number] Closed 12/13/2022 03/12/2023 2 2 Reason for Visit * Imaging (Routine) - Closed Specialty Diagnoses / Procedures Referred By Contjairo t Referred To Contact RADIOLOGY Diagnoses Chest pain Benign essential HTN CAD (coronary artery disease) Procedures NM EXER NUC STRESS TEST 1DAY Diego Muse MD 3 [facility] [address] [place] [address] Phone: tel: fax: Referral ID Status Reason Start Date Expiration Date Visits Re quested Visits Authorized [id number] Closed 12/13/2022 03/12/2023 2 2 Encounter Details Date Type Department Care Team (Latest Contact Info) Description 12/13/2022 12:22 PM CDT - 12/13/2022 11:59 PM CDT Hospital Encounter [facility] Nuclear Medicine [address] [facility] [place] [address] Diego Muse MD [address] [address] Discharge Disposition: Home or Self Care [...] PM CDT documented as of this encounter Medications at Time of Discharge esomeprazole (NEXIUM 24HR) 20 MG capsule Take 1 capsule (20 mg total) by mouth daily. icosapent ethyl (VASCEPA) 1 G capsule Take 1 capsule (1 g total) by mouth 2 (two) times daily. 05/27/2021 metoprolol succinate ER (TOPROL-XL) 25 MG 24 hr tablet Take 0.5 tablets (12.5 mg total) by mouth daily. rosuvastatin (CRESTOR) 40 MG tablet Take 1 tablet (40 mg total) by mouth daily. 06/27/2022 documented as of this encounter Plan of Treatment Not on file documented as of this encounter Procedures Procedure Name Priority Date/Time Associated Diagnosis Comments NM EXER NUC STRESS TEST 1 DAY W TRACING Routine 12/13/2022 2:30 PM CDT Chest pain Benign essential HTN CAD (coronary artery disease) STRESS TEST ONLY, EXERCISE Routine 12/13/2022 12:33 PM CDT Chest pain Benign essential HTN CAD (coronary artery disease) Coronary artery disease due to calcified coronary lesion Hypercholesterolemia Primary hypertension documented in this encounter Results * NM EXER NUC STRESS TEST 1DAY (12/13/2022 2:30 PM CDT) Anatomical Region Laterality Modality Cardiac Nuclear Medicine 12/13/2022 12:5 2 PM CDT Diego Muse MD NUC MED Final Result documented in this encounter Visit Diagnoses Diagnosis Coronary artery disease due to calcified coronary lesion- Primary Chest pain Chest pain, unspecified Benign essential HTN Essential hypertension, benign CAD (coronary artery disease) Coronary atherosclerosis of unspecified type of vessel, [place] lake or graft Hypercholesterolemia Pure hypercholesterolemia Primary hypertension Unspecified essential hypertension documented in this encounter Administered Medications Inactive Administered Medications - up to 3 most recent administrations Medication Order MAR Action Action Date Dose Rate Site Generic Radiopharmaceutical 42.3 millicurie 42.3 millicurie, Intravenous, IMG once as needed, 10.5 mCi Tc Myoview for rest, 31.8 mCi Tc Myoview for stress, 1 dose, Starting on Tue12/13/22 at 1431, Until Tue12/13/22 at 1431 Given 12/13/2022 2:31 PM CDT 42.3 millicuries documented in this encounter Care Teams Land Measurer Relationship Specialty Start Date End Date Corey Angel MD [address] [place] [id number] PCP - General INTERNAL MEDICINE 02/25/21 documented as of this encounter
--- OUTSIDE RECORDS SUMMARY | 2024-09-30 09:13 | XMS_ITS | Encounter Summary ---
Author Organization [facility] Address [address] [place] [address]. [place], [place] [address] [place] [address] Care Team Providers Care Airplane Woodworker Name Role Phone Corey Angel MD Primary Care Provider [phone] Encounter Details Date Type Department Care Team (Late st Contact Info) Description 06/20/2023 Orders Only [place] [facility] [address] [facility] [address] [place] [address] Diego Muse MD 3 [facility] [address] [place] [address] Social History Tobacco Use Types Packs/Day [...] as of this encounter Visit Diagnoses Diagnosis Aneurysm of ascending aorta without rupture (CMS/HCC)- Primary documented in this encounter Care Teams Airplane Woodworker Relationship Specialty Start Date End Date Corey Angel MD [address] [place] [address] PCP - General INTERNAL MEDICINE 02/25/21 documented as of this encounter
--- OUTSIDE RECORDS SUMMARY | 2024-09-30 09:13 | XMS_ITS | Encounter Summary ---
Author Organization [facility] Address [address] [place] [address]. [place] [address] [place] [address] Care Team Providers Care Pole Cutter Name Role Phone Corey Angel MD Primary Care Provider [phone] Reason for Visit * Reason Onset Date Comments Results 04/21/2021 Encounter Details Date Type Department Care Team (Late st Contact Info) Description 04/21/[address] [place], [place] [address] Hanh Diane, TYLER [address] [id number] Results Social History Tobacco Use Types Packs/Day [...] PM CDT documented as of this encounter Progress Notes * Nayeli Serrano RN - 04/21/2021 11:50 AM CDT Patient stated that he is actually going to see his PCP today for a follow up and will discuss the below. * Hanh Diane NP - 04/21/2021 11:39 AM CDT Please let him know that his calcium score is 559. This means that he has a high amount of calcium build up in his arteries and is at significant risk of cardiovascular event in the next 5 years. We recommend daily ASA 81mg and referral to a auricular detoxification specialist for further evaluation. He also needs tofollow up with his primary care physician to discuss risk factor modification including, but not limited to; smoking cessation if applicable, dietary changes, increased exercise, weight loss, blood pressure control, cholesterol control (LDL<100), etc. There was also an incidental findings of emphysema that needs to be followed up with their primary care physician If there are any further questions please let me know. documented in this encounter Plan of Treatment Not on file documented as of this encounter Visit Diagnoses Not on filedocumented in this encounter Care Teams Pole Cutter Relationship Specialty Start Date End Date Corey Angel MD [address] [place] [address] PCP - General INTERNAL MEDICINE 02/25/21 documented as of this encounter
--- OUTSIDE RECORDS SUMMARY | 2024-09-30 09:13 | XMS_ITS | Encounter Summary ---
Author Organization [facility] Address [address] [place] [address]. [place], [place] [address] [place] [address] Care Team Providers Care Cte Teacher Name Role Phone Corey Angel MD Primary Care Provider [phone] Encounter Details Date Type Department Care Team (Latest Contact Info) Description 10/29/2022 Travel Social History Tobacco Use Types Packs/Day [...] Coronavirus/COVID-19? No / Unsure 10/29/2022 9:54 AM CREW MANAGER documented as of this encounter Plan of Treatment Not on file documented as of this encounter Visit Diagnoses Not on filedocumented in this encounter Care Teams Cte Teacher Relationship Specialty Start Date End Date Corey Angel MD [address] [place] [address] PCP - General INTERNAL MEDICINE 02/25/21 documented as of this encounter
--- OUTSIDE RECORDS SUMMARY | 2024-09-30 09:13 | XMS_ITS | Encounter Summary ---
Author Organization [facility] Address [address] [place] [address]. [place] [address] [place] [address] Care Team Providers Care Model Maker Plastic Name Role Phone Corey Angel MD Primary Care Provider [phone] Encounter Details Date Type Department Care Team (Late st Contact Info) Description 07/20/[address] [address] [facility] [address] [place] [address] Diego Muse MD 3 [facility] [address] [place] [address] Social History Tobacco Use Types [...] as of this encounter Visit Diagnoses Diagnosis CAD (coronary artery disease)- Primary Coronary atherosclerosis of unspecified type of vessel, [place] or graft Ascending aortic aneurysm (CMS/HCC) Thoracic aneurysm without mention of rupture documented in this encounter Care Teams Model Maker Plastic Relationship Specialty Start Date End Date Corey Angel MD [address] [place] [address] PCP - General INTERNAL MEDICINE 02/25/21 documented as of this encounter
--- OUTSIDE RECORDS SUMMARY | 2024-09-30 09:13 | XMS_ITS | Encounter Summary ---
Author Organization [facility] Address [facility] [place], [place] [address] [place] [address] Care Team Providers Care Lead Burner Apprentice Name Role Phone Corey Angel MD Primary Care Provider [phone] Reason for Referral * Imaging (Routine) - Closed Specialty Diagnoses / Procedures Referred By Contac t Referred To Contact RADIOLOGY Diagnoses Aneurysm of ascending aorta without rupture (CMS/HCC) Procedures CTA CHEST CTA CHEST WWO CON Diego Cordero MD 3 [facility] [address] [place] [address] Phone: tel: fax: Referral ID Status Reason Start Date Expiration Date Visits Re quested Visits Authorized [id number] Closed 04/29/2023 09/01/2023 1 1 Encounter Details Date Type Department Care Team (Late st Contact Info) Description 04/29/2023 Orders Only [place] [facility] [address] [facility] [place] [address] Diego Cordero MD 3 [facility] [address] [place] [address] Social History Tobacco Use Types Packs/Day Years Used Date Smoking Tobacco: Never Smokeless Tobacco: Never Sex and Gender Information Value Date Recorded Sex Assigned at Not on file Legal Sex Male 5:37 PM CDT Gender Identity Not on file Sexual Orientation Not on file documented as of this encounter Plan of Treatment Not on file documented as of this encounter Results * CTA CHEST (07/07/2023 [...] of ascending aorta without rupture (CMS/HCC)- Primary Aneurysm of ascending aorta without rupture (CMS/HCC) documented in this encounter Care Teams Lead Burner Apprentice Relationship Specialty Start Date End Date Corey Angel MD [address] [place] [address] PCP - General INTERNAL MEDICINE 02/25/21 documented as of this encounter
--- OUTSIDE RECORDS SUMMARY | 2024-09-30 09:14 | XMS_ITS | Encounter Summary ---
Author Organization [facility] Address [facility]. [place], [place] [address] [place] [address] Care Team Providers Care Displayer Merchandise Name Role Phone Corey Hernández MD Primary Care Provider [phone] Reason for Referral * Imaging (Routine) - Closed Specialty Diagnoses / Procedures Referred By Contac t Referred To Contact RADIOLOGY Diagnoses Abnormal finding of blood chemistry, unspecified Procedures CT HEART DIAG CALCIUM SCORE Corey Hernández MD [address] [place] [address] Phone: tel: fax: [place] [address] Phone: tel: Referral ID Status Reason Start Date Expiration Date Visits Re quested Visits Authorized [id number] Closed 02/24/2021 03/26/2022 1 1 Reason for Visit * Imaging (Routine) - Closed Specialty Diagnoses / Procedures Referred By Contac t Referred To Contact RADIOLOGY Diagnoses Abnormal finding of blood chemistry, unspecified Procedures CT HEART DIAG CALCIUM SCORE Corey Hernández MD [address] [place] [address] Phone: tel: fax: [place] [address] Phone: tel: Referral ID Status Reason Start Date Expiration Date Visits Re quested Visits Authorized [id number] Closed 02/24/2021 03/26/2022 1 1 Encounter Details Date Type Department Care Team (Latest Contact Info) Description 04/20/2021 3:00 PM CDT - 04/20/2021 11:59 PM CDT Hospital Encounter [facility] [address] [place] [address] Corey Hernández MD [address] [place] [address] Discharge Disposition: Home or Self Care (Routine [...] Procedure Name Priority Date/Time Associated Diagnosis Comments CT HEART DIAG CALCIUM SCORE Routine 04/20/2021 3:37 PM CDT Abnormal finding of blood chemistry, unspecified documented in this encounter Results * CT HEART DIAG CALCIUM SCORE (04/20/2021 3:37 PM CDT) Anatomical Region Laterality Modality Computed Tomogra phy 04/21/2021 9:26 AM CDT Impressions 04/21/2021 9:30 AM CDT IMPRESSION: Total calcium score of 559; between 50 and 75% of similar patients have equal or less coronary artery calcium. Annular calcifications of the aortic valve. Ascending aorta dilatation, measuring 4.4 cm. Coronary artery calcification is a specific marker for coronary atherosclerosis. The amount of calcification correlates with severity of coronary atherosclerosis. Paraseptal emphysema. ??Bilateral gynecomastia. Referred By: COREY HERNÁNDEZ Interpreted By: Nate Berrios MD, 04/21/2021 9:26 AM Narrative 04/21/2021 9:30 AM CDT EXAMINATION: CARDIAC CT - CORONARY CALCIUM CT DATE: 04/20/2021 HISTORY: ??70-year old male for coronary artery disease risk assessment. TECHNIQUE: 64-slice multidetector computerized tomography coronary angiogram was obtained using retrospective ECG gating. ECG tube modulation was used to reduce the radiation exposure. Calcium score was calculated using 1000jobboersen.de 64, Incentive Targeting software. No intravenous contrast material was administered. Procedure Complications/Allergic reactions: None. Coronary calcium CT quality: Good, limited by nothing FINDINGS: AGATSTON SCORE: Left main: 0 Left anterior descendin Left [...] demonstrating the population risk stratification for males. ADDITIONAL FINDINGS: The aortic valve demonstrates annular calcifications. The visualized thoracic aorta is dilated, measuring 4.4 cm. No suspicious lung nodule, mass, consolidation. There is evidence of paraseptal emphysema. Visible upper abdomen is unremarkable. ??Bilateral gynecomastia. No suspicious osteolytic or osteoblastic lesions. Procedure Note Nate Berrios MD - 04/21/2021 EXAMINATION: CARDIAC CT - CORONARY CALCIUM CT DATE: 04/20/2021 HISTORY: 70-year old male for coronary artery disease risk assessment. TECHNIQUE: 64-slice multidetector computerized tomography coronaryangiogram was obtained using retrospective ECG gating. ECG tube modulationwas used to reduce the radiation exposure. Calcium score was calculatedusing 1000jobboersen.de 64, Roll20 system software. No intravenouscontrast material was administered. Procedure Complications/Allergic reactions: None. Coronary calcium CT quality: Good, limited by nothing FINDINGS: AGATSTON SCORE: Left main: 0 Left anterior descendin Left circumflex: 105 Right coronary artery: 76.0 Total score: 559 The total calcium score is 559. This places the patient into the [id number] and 75% in comparison to a group of patient's asymptomatic for coronaryartery disease with the same age and gender. This means that between 50and 75% of malesat age 69 have calcium scores equal or lower than thepatient. Refer to the printed report for the graph demonstrating thepopulation risk stratification for males. ADDITIONAL FINDINGS: The aortic valve demonstrates annular calcifications. The visualized thoracic aorta is dilated, measuring 4.4 cm. No suspicious lung nodule, mass, consolidation. There is evidence of paraseptal emphysema. Visible upper abdomen is unremarkable. Bilateral gynecomastia. No suspicious osteolytic or osteoblastic lesions. IMPRESSION: Total calcium score of 559; between 50 and 75% of similar patients haveequal or less coronary artery calcium. Annular calcifications of the aortic valve. Ascending aorta dilatation, measuring 4.4 cm. Coronary artery calcification is a specific marker for coronaryatherosclerosis. The amount of calcification correlates with severity ofcoronary atherosclerosis. Paraseptal emphysema. Bilateral gynecomastia. Referred By: COREY HERNÁNDEZ Interpreted By: Nate Berrios MD, 04/21/2021 9:26 AM Corey Hernández MD CT Final Result documented in this encounter Visit Diagnoses Diagnosis Abnormal finding of blood chemistry, unspecified documented in this encounter Care Teams Displayer Merchandise Relationship Specialty Start Date End Date Corey Hernández MD [address] [place] [address] PCP - General INTERNAL MEDICINE 02/25/21 documented as of this encounter
--- OUTSIDE RECORDS SUMMARY | 2024-09-30 09:14 | XMS_ITS | Encounter Summary ---
Author Organization [facility] Address [facility] [place] [address] [place] [address] Care Team Providers Care Power Lineman Technician Name Role Phone Unavailable Primary Care Provider Unavailabl e Encounter Details Date Type Department Care Team (Late st Contact Info) Description 08/12/[address] [facility] Diagnostic Imaging [address] [place] [address] Peter Morales MD [address] [place] [address] Social History Tobacco Use Types Packs/Day Years [...]
--- OUTSIDE RECORDS SUMMARY | 2024-09-30 09:16 | XMS_ITS | Clinical Summary ---
Author Organization [facility] Address [address] [address] Phone Care Team Providers Care Research Development Director Name Role Phone Corey Angel MD Primary Care Provider [phone] Uzair Dye DO Unavailable [phone] Allergies No known active allergies Medications esomeprazole (NEXIUM) 40 MG CAPSULE DELAYED RELEASE Take 40 mg by mouth daily. Active Ferrous Sulfate (IRON) 325 (65 FE) MG Tablet Take by mouth 2 times daily. Active Probiotic Product (PROBIOTIC ADVANCED PO) Take by mouth. Active Immunizations Immunization Administration Dates Next Due Covid-19, Mrna, Lnp-s, Pf, 30 Mcg/0.3 Ml Dose (P fizer) 12/13/2020,11/20/2020 Influenza Vaccine greater than 3 yrs 09/08/2016 Family History Medical History Relation Name Comments Congestive Heart Failure Father Relation Name Status Comments Father Social History Tobacco Use Types Packs/Day Years Used Date Smoking Tobacco: Never Smokeless Tobacco: Never Alcohol Use Standard Drinks/Week Comments No 0 (1 standard drink = 0.6 oz pur e alcohol) Sex and Gender Information Value Date Recorded Sex Assigned at Not on file Legal Sex Male 8:53 PM CDT Gender Identity Not on file Sexual Orientation Not on file 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 Not on file Not on file Last Filed Vital Signs Vital Sign Reading Time Taken Comments Blood Pressure 120/90 10/12/2016 12:23 PM TACK PULLER Pulse 79 10/12/2016 12:23 PM TACK PULLER Temperature 36.1 ??C (96.9 ??F) 10/12/2016 12:[address] Respiratory Rate 14 10/12/2016 12:23 PM TACK PULLER Oxygen Saturation 94% 10/12/2016 12:23 PM TACK PULLER Inhaled Oxygen Concentration - - Weight 117.5 kg (259 lb) 10/12/2016 12:23 PM TACK PULLER Height 177.8 cm (5' 10 ) 10/12/2016 12:23 PM TACK PULLER Body Mass Index 37.16 10/12/2016 12:23 PM TACK PULLER Plan of Treatment Health Maintenance Due Date Last Done Comments Hepatitis C Virus (HCV) Screening 1950 TdaP Immunization 1950 Cologuard 2001 Immunochemical Fecal Occult Blood 2001 Zoster Immunization (2 of 3) 08/08/2016 06/13/2016 Pneumococcal Immunization (50+ years) (1 of 1 - PCV) 2016 SARS-COV-2 Immunization (4 - season) 2023 08/12/2021, 12/13/2020, 11/20/2020 Influenza Immunization (#1) 05/27/202406/27, 08/15/2019, 07/23/2018, Additional history exists Colonoscopy 04/01/2026 04/01/2016 Colorectal Cancer Screening 04/01/2026 04/01/2016 Hepatitis B Immunization Aged Out No longer eligible based on patient's age to complete this topic Meningococcal Immunization (ACWY) Aged Out No longer eligible based on patient's age to complete this topic Rotavirus Immunization Aged Out No lo nger eligible based on patient's age to complete this topic Procedures Procedure Name Priority Date/Time Associated Diagnosis Comments HM COLONOSCOPY Routine 04/01/2016 from Last 3 Months or Most Recently Relevant to Health Maintenance Results * HM COLONOSCOPY (04/01/2016) Corey Angel MD PROCEDURE/MINOR SURGICAL ORDER ALPHONSE Final Result from Last 3 Months or Most Recently Relevant to Health Maintenance Insurance MEDICARE [email or web address] Care Teams Research Development Director Relationship Specialty Start Date End Date Corey Angel MD [address] [place] [address] PCP - General Internal Medicine 03/31/16 Uzair Dye DO [address] [place] [address] Gastroenterology 03/31/16
--- OUTSIDE RECORDS SUMMARY | 2024-09-30 09:17 | XMS_ITS | Clinical Summary ---
Author Organization [facility] [place] Address [address] [place] [address] Care Team Providers Care Radiology Therapist Name Role Phone Corey Angel MD Primary Care Provider [phone] Clem Thomson MD Unavailable [phone] Harman Morales MD Unavailable [phone] James Robert DO Unavailable [phone] Allergies No known active allergies Medications esomeprazole DR (NexIUM) 20 mg capsuleIndicat ions:Treatment of Non-Bleeding Gastric Disorder,gerd Take 1 capsule (20 mg total) by mouth daily before breakfast Active rosuvastatin (CRESTOR) 20 mg tabletIndicati ons:hyperlipid emia Take 1 tablet (20 mg total) by mouth nightly 1 Active icosapent ethyL (VASCEPA) 1 gram capsuleIndicat ions:hypertrig lyceridemia Take 2 capsules (2 g total) by mouth 2 (two) times a day 1 Active cholecalcifero l 400 unit capsuleIndicat ions:supplemen t Take 600 Units by mouth every morning Active metoprolol XL (TOPROL-XL) 25 mg extended release tabletIndicati ons:hypertensi on,AAA Take 0.5 tablets (12.5 mg total) by mouth every morning Active nitroglycerin (NITROSTAT) 0.4 mg SL tabletIndicati ons:aneursysm Place 1 tablet (0.4 mg total) under the tongue every 5 (five) minutes as needed for chest pain 3 Active bee pollen 550 mg capsuleIndicat ions:supplemen t/allergies Take 1 Dose by mouth 2 (two) times a day 1 tbs BID Active tamsulosin (FLOMAX) 0.4 mg extended release capsule Take 1 capsule (0.4 mg total) by mouth daily 30 capsule 11 4 Active LORazepam (ATIVAN) 0.5 mg tablet Take 1 tablet (0.5 mg total) by mouth every 6 (six) hours as needed for anxiety (prior to MRI) 1 tablet 4 Active traZODone (DESYREL) 50 mg tablet Take 1 tablet (50 mg total) by mouth nightly 4 Active ascorbic acid (vitamin C) 1,000 mg tablet 4 Active azelastine (ASTELIN) 137 mcg (0.1 %) nasal spray Administer 1 spray into each nostril 2 (two) times a day Use in each nostril as directed Active abiraterone (ZYTIGA) 250 mg tabletIndicati ons:Prostate cancer (HCC) Take 4 tablets (1,000 mg total) by mouth daily Take with a glass of water, on an empty stomach at least 1 hr before or 2 hrs after food. 120 tablet 5 4 02/07/20 25 Active predniSONE (DELTASONE) 5 mg tabletIndicati ons:Prostate cancer (HCC) Take 1 tablet (5 mg) by mouth 2 (two) times a day Take with food. 60 tablet 3 4 Active predniSONE (DELTASONE) 5 mg tabletIndicati ons:Prostate cancer (HCC) Take 1 tablet (5 mg) by mouth 2 (two) times a day Take with food. 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 05/30/2018 Knee pain 04/22/2016 Encounters Date Type Department Care Team Description 09/28/2024 1:00 PM [facility] Medical Office Building 2 Radiation Oncology [address] [place] [address] [id number] 09/28/2024 [facility] Medical Office Building 2 Radiation Oncology [address] [place] [address] [phone] Ariela Boyle MD Prostate cancer (HCC) (Primary Dx) 09/28/2024 Orders Only RAD ONC TREATMENTS Miscellaneous, Not In File 09/27/2024 1:00 PM [facility] Medical Office Building 2 Radiation Oncology [address] [place] [address] [phone] 09/27/2024 Orders Only RAD ONC TREATMENTS Miscellaneous, Not In File 09/25/2024 [facility] Office Building 2 Radiation Oncology [address] [place] [address] [phone] Ariela Boyle MD 09/21/2024 1:00 PM [facility] Office Building 2 Radiation Oncology [address] [place] [address] [phone] 09/21/2024 [facility] Medical Office [facility] 2 Radiation Oncology [address] [place] [address] [phone] Harman Morales MD 09/21/2024 Orders Only RAD ONC TREATMENTS Miscellaneous, Not In File 09/20/2024 1:00 PM [facility] Medical Office Building 2 Radiation Oncology [address] [place] [address] [phone] 09/20/2024 Orders Only RAD ONC TREATMENTS Miscellaneous, Not In File 09/18/2024 1:00 PM [facility] Medical Office Building 2 Radiation Oncology [address] [place] [address] [phone] 09/18/2024 Orders Only RAD ONC TREATMENTS Miscellaneous, Not In File 09/17/2024 1:00 PM [facility] Medical Office Building 2 Radiation Oncology [address] [place] [address] 16709 09/17/2024 Orders Only RAD ONC TREATMENTS Miscellaneous, Not In File 09/14/2024 1:00 PM [facility] Medical Office Building 2 Radiation Oncology [address] [place] [address] [phone] 09/14/[facility] 2 [facility] On[facility] [address] [place] [address] [phone] Harman Morales MD 09/14/2024 Orders Only RAD ONC TREATMENTS Miscellaneous, Not In File 09/13/2024 1:00 PM [facility] Office Building 2 Radiation Oncology [address] [place] [address] [phone] 09/13/2024 Orders Only RAD ONC TREATMENTS Miscellaneous, Not In File 09/12/2024 1:00 PM [facility] Medical Office Building 2 Radiation Oncology [address] [place] [address] [phone] 09/12/2024 Orders Only RAD ONC TREATMENTS Miscellaneous, Not In File 09/11/2024 1:00 PM [facility] Office Building 2 Radiation Oncology [address] [place] [address] [phone] 09/11/2024 Orders Only RAD ONC TREATMENTS Miscellaneous, Not In File 09/10/2024 1:00 PM [facility] Medical Office Building 2 Radiation Oncology [address] [place] [address] [phone] 09/10/2024 Orders Only RAD ONC TREATMENTS Miscellaneous, Not In File 09/07/2024 1:00 PM [facility] Medical Office Building 2 Radiation Oncology [address] [place] [address] [phone] 09/07/2024 [facility] Medical Office Building 2 Radiation Oncology [address] [place] [address] 46745 Harman Morales MD 09/07/2024 Orders Only RAD ONC TREATMENTS Miscellaneous, Not In File 09/06/2024 1:15 PM [employer] Clinical Support [facility] Medical Office Building 2 Radiation Oncology [address] [place] [address] [id number] Prostate cancer (HCC) (Primary Dx); Elevated PSA 09/06/2024 1:00 PM [employer] Treatment [facility] Medical Office Building 2 Radiation Oncology [address] [place] [address] [phone] 09/06/2024 Orders Only RAD ONC TREATMENTS Miscellaneous, Not In File 09/05/2024 1:15 PM [employer] Treatment [facility] Medical Office Building 2 Radiation Oncology [address] [place] [address] 91002 Harman Morales MD 09/05/2024 1:00 PM [employer] Treatment [facility] Medical Office [facility] 2 Radiation Oncology [address] [place] [address] [phone] Harman Morales MD 09/05/2024 Orders Only RAD ONC TREATMENTS Miscellaneous, Not In File 09/03/2024 7:15 PM [employer] Treatment [facility] Medical Office [facility] 2 Radiation Oncology [address] [place] [address] [phone] 08/20/2024 11:30 AM [employer] Treatment [facility] Office [facility] 2 Radiation Oncology [address] [place] [address] 11307 Harman Morales MD 08/20/2024 11:00 AM [employer] Office Visit [facility] Medical Office Building 2 Radiation Oncology [address] [place] [address] [phone] Harman Morales MD Prostate cancer (HCC) (Primary Dx) 08/17/2024 10:50 AM [employer] - 08/17/2024 11:59 PM [employer] [facility] Radiation Oncology [address] [facility] [place] [address] Eliezer Pérez MD Prostate cancer (HCC) (Primary Dx) Discharge Disposition: Discharge to home or self care 08/13/2024 Telephone [facility] Medical Office Building 2 Radiation Oncology [address] [place] [phone] Taya Cartagena, MICAH 08/10/2024 Orders Only [facility] Office Building 2 Radiation Oncology [address] [place] [address] [phone] Taya Cartagena RN 08/09/2024 2:30 PM [employer] Office Visit [facility] Oncology [address] [place] [address] [place] [phone] James Robert DO Prostate cancer (HCC) (Primary Dx) 08/03/2024 11:38 AM [employer] - 08/03/2024 11:59 PM [employer] Hospital Encounter [address] [address] Prostate cancer (HCC) Discharge Disposition: Discharge to home or self care 08/03/2024 11:15 AM [employer] Lab [facility] Outpatient Lab at [address] [phone] 08/03/2024 Orders Only [facility] Medical Office Building 2 Radiation Oncology [address] [place] [address] Taya Cartagena RN Prostate cancer (HCC) (Primary Dx) 07/11/2024 1:00 PM CDT Clinical Support [facility] Office Building 2 Radiation Oncology [address] [place] [address] Prostate cancer (HCC) (Primary Dx) 07/11/2024 1:00 PM CDT Office Visit [facility] Medical Office Building 2 Radiation Oncology [address] [place] [address] 15[address] Harman Morales MD Prostate cancer (HCC) (Primary Dx) 07/06/2024 Orders Only [facility] Office Building 2 Radiation Oncology [address] [place] [phone] Taya Cartagena RN 07/02/2024 2:17 PM CDT - 07/02/2024 11:59 PM CDT Hospital Encounter [facility] MRI [address] [place] [address] Prostate cancer (HCC) Discharge Disposition: Discharge to home or self care from Last 3 Months Immunizations Name Administration Dates Next Due Influenza, Trivalent, IM (IRIS) 09/08/2016 Surgical History Surgery Date Site/Laterality Comments HEMORROIDECTOMY 09/26/1989 - 09/25/1990 COLONOSCOPY 09/26/2022 - 09/25/2023 CHOLECYSTECTOMY 09/26/2019 - 09/25/2020 PROSTATE BIOPSY MOHS SURGERY x2 Medical History Medical History Date Comments Ascending aortic aneurysm (HCC) Iron deficiency anemia Fatty liver Hiatal hernia Prostate cancer (HCC) Skin cancer Family History Medical History Relation Name Comments Heart disease Father No Known Problems Mother Lung cancer Sister Anesthesia problems Neg Hx Relation Name Status Comments Father Mother Sister Alive Social History Tobacco Use Types Packs/Day Years Used Date Smoking Tobacco: Never Smokeless Tobacco: Never Tobacco Cessation:Counseling Given: Not Answered Alcohol Use Standard Drinks/Week Comments No 0 (1 standard drink = 0.6 oz pur e alcohol) AUDIT-C Answer Date Recorded Q1: How often do you have a drink containing alcohol? Never 08/09/2024 Q2: How many drinks containi ng alcohol do you have on a typical day when you are drinking? Patient does not drink Q3: How often do you have si x or more drinks on one occasion? Never 08/09/2024 Personal Safety Answer Date Recorded Have you ever been in or are you currently in a harmful physical or emotional relationship or is someone making you feel afraid or unsafe? Denies 04/30/2024 Sex and Gender Information Value Date Recorded Sex Assigned at Not on file Legal Sex Male 2:49 AM [employer] Gender Identity Male 05/22/2018 10:57 AM CDT Sexual Orientation Straight 11/03/2020 7: 01 PM [employer] Occupation Industry Job Start Date Job End Date working Not on file Not on file Not on file Obstetrics History Last Filed Vital Signs Vital Sign Reading Time Taken Comments Blood Pressure 136/90 09/28/2024 1:22 PM [employer] Pulse 59 09/28/2024 1:22 PM [employer] Temperature 36.2 ??C (97.2 ??F) 08/09/2024 3:04 PM CS T Respiratory Rate 16 08/17/2024 12:20 PM [employer] Oxygen Saturation 100% 09/28/2024 1:22 PM [employer] Inhaled Oxygen Concentration - - Weight 121.6 kg (268 lb) 09/28/2024 1:22 PM [employer] Height 179.1 cm (5' 10.5 ) 08/09/2024 3:04 PM CS T Body Mass Index 37.91 08/09/2024 3:04 PM [employer] Plan of Treatment Health Maintenance Due Date Last Done Comments Colon Cancer Screening-Colonoscopy 1950 Depression Screening 1950 Hepatitis C Screening 1950 Pneumococcal vaccine 65+ (1 of 2 - PCV) 1957 DTaP/Tdap/Td Vaccine (1 - Tdap) 1962 Hepatitis B Screening 1969 Zoster Vaccine (1 of 2) 08/08/2016 06/13/2016 Well Visit 65+ 2016 Covid-19 Vaccine (4 - 2023-2 5 season) 2024 08/12/2021, 12/13/2020, 11/20/2020 Influenza Vaccine (#1) 2024 3, 07/08/2022, 08/05/2021, Additional history exists Fall Risk Assessment 06/28/2025 06/28/2024, 04/30/20 Prostate Cancer Screening-PSA Discontinued 06/15/2024 Procedures Procedure Name Priority Date/Time Associated Diagnosis Comments RAD ONC ARIA SESSION SUMMARY 09/28/2024 1:13 PM [employer] RAD ONC ARIA SESSION SUMMARY 09/27/2024 1:07 PM [employer] RAD ONC ARIA SESSION SUMMARY 09/21/2024 1:09 PM [employer] RAD ONC ARIA SESSION SUMMARY 09/20/2024 1:11 PM [employer] RAD ONC ARIA SESSION SUMMARY 09/18/2024 1:16 PM [employer] RAD ONC ARIA SESSION SUMMARY 09/17/2024 1:16 PM [employer] RAD ONC ARIA SESSION SUMMARY 09/14/2024 1:12 PM [employer] RAD ONC ARIA SESSION SUMMARY 09/13/2024 1:23 PM [employer] RAD ONC ARIA SESSION SUMMARY 09/12/2024 1:16 PM [employer] RAD ONC ARIA SESSION SUMMARY 09/11/2024 1:16 PM [employer] RAD ONC ARIA SESSION SUMMARY 09/10/2024 1:15 PM [employer] RAD ONC ARIA SESSION SUMMARY 09/07/2024 1:17 PM [employer] RAD ONC ARIA SESSION SUMMARY 09/06/2024 1:12 PM [employer] RAD ONC ARIA SESSION SUMMARY 09/05/2024 1:23 PM [employer] URINALYSIS AND REFLEX TO MICROSCOPIC AND CULTURE Routine 08/03/2024 11:39 AM [employer] Prostate cancer (HCC) MRI PELVIS W WO CONTRAST Schedule Routine, Read Routine (OP Routine) 07/02/2024 3:47 PM CDT Prostate cancer (HCC) PSA DIAGNOSTIC Routine 06/15/2024 3:04 PM CDT Prostate cancer (HCC) from Last 3 Months or Most Recently Relevant to Health Maintenance Results * RAD ONC ARIA SESSION SUMMARY (09/28/2024 1:13 PM [employer]) Course Name [email or web address] E_2023 ARIA Course Plan Date 08/20/2024 12:00 PM ARIA Elapsed Days 23 ARIA Treatment Start Date 09/05/2024 ARIA Treatment Site [id number] ARIA Dose Given To Date (cGy) 3,500 ARIA Session Dosage Given (cGy) 250 ARIA Plan ID PROSTATE_L NS ARIA Fractions Treated 14 ARIA Prescribed Dose Per Fraction (cGy) 250 ARIA Prescribed Total Dose (cGy) 7,000 ARIA 09/28/2024 1:13 PM [employer] us Not In File Miscellaneous RADIATION ONCOLOGY ORD ERABLES Final Result ARIA * RAD ONC ARIA SESSION SUMMARY (09/27/2024 1:07 PM [employer]) Course Name [email or web address] E ARIA Course Plan Date 08/20/2024 12:00 PM ARIA Elapsed Days 22 ARIA Treatment Start Date 09/05/2024 ARIA Treatment Site [id number] ARIA Dose Given To Date (cGy) 3,250 ARIA Session Dosage Given (cGy) 250 ARIA Plan ID PROSTATE_L NS ARIA Fractions Treated 13 ARIA Prescribed Dose Per Fraction (cGy) 250 ARIA Prescribed Total Dose (cGy) 7,000 ARIA 09/27/2024 1:07 PM [employer] us Not In File Miscellaneous RADIATION ONCOLOGY ORD ERABLES Final Result Performing Organization Address [facility] [address] [facility] Co de Phone Number ARIA * RAD ONC ARIA SESSION SUMMARY (09/21/2024 1:09 PM [employer]) Course Name [email or web address] E ARIA Course Plan Date 08/20/2024 12:00 PM ARIA Elapsed Days 16 ARIA Treatment Start Date 09/05/2024 ARIA Treatment Site [id number] ARIA Dose Given To Date (cGy) 3,000 ARIA Session Dosage Given (cGy) 250 ARIA Plan ID PROSTATE_L NS ARIA Fractions Treated 12 ARIA Prescribed Dose Per Fraction (cGy) 250 ARIA Prescribed Total Dose (cGy) 7,000 ARIA 09/21/2024 1:09 PM [employer] us Not In File Miscellaneous RADIATION ONCOLOGY ORD ERABLES Final Result ARIA * RAD ONC ARIA SESSION SUMMARY (09/20/2024 1:11 PM [employer]) Course Name [email or web address] E ARIA Course Plan Date 08/20/2024 12:00 PM ARIA Elapsed Days 15 ARIA Treatment Start Date 09/05/2024 ARIA Treatment Site [id number] ARIA Dose Given To Date (cGy) 2,750 ARIA Session Dosage Given (cGy) 250 ARIA Plan ID PROSTATE_L NS ARIA Fractions Treated 11 ARIA Prescribed Dose Per Fraction (cGy) 250 ARIA Prescribed Total Dose (cGy) 7,000 ARIA 09/20/2024 1:11 PM [employer] us Not In File Miscellaneous RADIATION ONCOLOGY ORD ERABLES Final Result ARIA * RAD ONC ARIA SESSION SUMMARY (09/18/2024 1:16 PM [employer]) Course Name [email or web address] ARIA Course Plan Date 08/20/2024 12:00 PM ARIA Elapsed Days 13 ARIA Treatment Start Date 09/05/2024 ARIA Treatment Site [id number] ARIA Dose Given To Date (cGy) 2,500 ARIA Session Dosage Given (cGy) 250 ARIA Plan ID PROSTATE_L NS ARIA Fractions Treated 10 ARIA Prescribed Dose Per Fraction (cGy) 250 ARIA Prescribed Total Dose (cGy) 7,000 ARIA 09/18/2024 1:16 PM [employer] us Not In File Miscellaneous RADIATION ONCOLOGY ORD ERABLES Final Result ARIA * RAD ONC ARIA SESSION SUMMARY (09/17/2024 1:16 PM [employer]) Course Name [email or web address] ARIA Course Plan Date 08/20/2024 12:00 PM ARIA Elapsed Days 12 ARIA Treatment Start Date 09/05/2024 ARIA Treatment Site [id number] ARIA Dose Given To Date (cGy) 2,250 ARIA Session Dosage Given (cGy) 250 ARIA Plan ID PROSTATE_L NS ARIA Fractions Treated 9 ARIA Prescribed Dose Per Fraction (cGy) 250 ARIA Prescribed Total Dose (cGy) 7,000 ARIA 09/17/2024 1:16 PM [employer] us Not In File Miscellaneous RADIATION ONCOLOGY ORD ERABLES Final Result Performing Organization Address City/[facility] [address]/ZIP Co de Phone Number ARIA * RAD ONC ARIA SESSION SUMMARY (09/14/2024 1:12 PM [employer]) Course Name [email or web address] E_2023 ARIA Course Plan Date 08/20/2024 12:00 PM ARIA Elapsed Days 9 ARIA Treatment Start Date 09/05/2024 ARIA Treatment Site [id number] ARIA Dose Given To Date (cGy) 2,000 ARIA Session Dosage Given (cGy) 250 ARIA Plan ID PROSTATE_L NS ARIA Fractions Treated 8 ARIA Prescribed Dose Per Fraction (cGy) 250 ARIA Prescribed Total Dose (cGy) 7,000 ARIA 09/14/2024 1:12 PM [employer] us Not In File Miscellaneous RADIATION ONCOLOGY ORD ERABLES Final Result Performing Organization Address [facility] [address]/[facility] de Phone Number ARIA * RAD ONC ARIA SESSION SUMMARY (09/13/2024 1:23 PM C[employer]) Course Name C1_PROSTAT E_2023 ARIA Course Plan Date 08/20/2024 12:00 PM ARIA Elapsed Days 8 ARIA Treatment Start Date 09/05/2024 ARIA Treatment Site [id number] ARIA Dose Given To Date (cGy) 1,750 ARIA Session Dosage Given (cGy) 250 ARIA Plan ID PROSTATE_L NS ARIA Fractions Treated 7 ARIA Prescribed Dose Per Fraction (cGy) 250 ARIA Prescribed Total Dose (cGy) 7,000 ARIA 09/13/2024 1:23 PM [employer] us Not In File Miscellaneous RADIATION ONCOLOGY ORD ERABLES Final Result ARIA * RAD ONC ARIA SESSION SUMMARY (09/12/2024 1:16 PM [employer]) Course Name [email or web address]_PROSTAT E ARIA Course Plan Date 08/20/2024 12:00 PM ARIA Elapsed Days 7 ARIA Treatment Start Date 09/05/2024 ARIA Treatment Site [id number] ARIA Dose Given To Date (cGy) 1,500 ARIA Session Dosage Given (cGy) 250 ARIA Plan ID PROSTATE_L NS ARIA Fractions Treated 6 ARIA Prescribed Dose Per Fraction (cGy) 250 ARIA Prescribed Total Dose (cGy) 7,000 ARIA 09/12/2024 1:16 PM [employer] us Not In File Miscellaneous RADIATION ONCOLOGY ORD ERABLES Final Result Performing Organization Address [facility] [address]/[facility] Co de Phone Number ARIA * RAD ONC ARIA SESSION SUMMARY (09/11/2024 1:16 PM [employer]) Course Name [email or web address] ARIA Course Plan Date 08/20/2024 12:00 PM ARIA Elapsed Days 6 ARIA Treatment Start Date 09/05/2024 ARIA Treatment Site [id number] ARIA Dose Given To Date (cGy) 1,250 ARIA Session Dosage Given (cGy) 250 ARIA Plan ID PROSTATE_L NS ARIA Fractions Treated 5 ARIA Prescribed Dose Per Fraction (cGy) 250 ARIA Prescribed Total Dose (cGy) 7,000 ARIA 09/11/2024 1:16 PM [employer] us Not In File Miscellaneous RADIATION ONCOLOGY ORD ERABLES Final Result ARIA * RAD ONC ARIA SESSION SUMMARY (09/10/2024 1:15 PM [employer]) Course Name [email or web address] ARIA Course Plan Date 08/20/2024 12:00 PM ARIA Elapsed Days 5 ARIA Treatment Start Date 09/05/2024 ARIA Treatment Site [id number] ARIA Dose Given To Date (cGy) 1,000 ARIA Session Dosage Given (cGy) 250 ARIA Plan ID PROSTATE_L NS ARIA Fractions Treated 4 ARIA Prescribed Dose Per Fraction (cGy) 250 ARIA Prescribed Total Dose (cGy) 7,000 ARIA 09/10/2024 1:15 PM [employer] us Not In File Miscellaneous RADIATION ONCOLOGY ORD ERABLES Final Result Performing Organization Address City/[facility] [address]/ZIP Co de Phone Number TYRONE * RAD ONC ARIA SESSION SUMMARY (09/07/2024 1:17 PM [employer]) Course Name C1_PROSTAT E_2023 ARIA Course Plan Date 08/20/2024 12:00 PM ARIA Elapsed Days 2 ARIA Treatment Start Date 09/05/2024 ARIA Treatment Site [id number] ARIA Dose Given To Date (cGy) 750 ARIA Session Dosage Given (cGy) 250 ARIA Plan ID PROSTATE_L NS ARIA Fractions Treated 3 ARIA Prescribed Dose Per Fraction (cGy) 250 ARIA Prescribed Total Dose (cGy) 7,000 ARIA 09/07/2024 1:17 PM [employer] us Not In File Miscellaneous RADIATION ONCOLOGY ORD ERABLES Final Result Performing Organization Address [facility] [address]/[facility] Co de Phone Number TYRONE * RAD ONC ARIA SESSION SUMMARY (09/06/2024 1:12 PM [employer]) Course Name C1_PROSTAT E_2023 ARIA Course Plan Date 08/20/2024 12:00 PM ARIA Elapsed Days 1 ARIA Treatment Start Date 09/05/2024 ARIA Treatment Site [id number] ARIA Dose Given To Date (cGy) 500 ARIA Session Dosage Given (cGy) 250 ARIA Plan ID PROSTATE_L NS ARIA Fractions Treated 2 ARIA Prescribed Dose Per Fraction (cGy) 250 ARIA Prescribed Total Dose (cGy) 7,000 ARIA 09/06/2024 1:12 PM [employer] us Not In File Miscellaneous RADIATION ONCOLOGY ORD ERABLES Final Result TYRONE * RAD ONC ARIA SESSION SUMMARY (09/05/2024 1:23 PM C[employer]) Course Name C1_PROSTAT E_2023 ARIA Course Plan Date 08/20/2024 12:00 PM ARIA Elapsed Days 0 ARIA Treatment Start Date 09/05/2024 ARIA Treatment Site [id number] ARIA Dose Given To Date (cGy) 250 ARIA Session Dosage Given (cGy) 250 ARIA Plan ID PROSTATE_L NS ARIA Fractions Treated 1 ARIA Prescribed Dose Per Fraction (cGy) 250 ARIA Prescribed Total Dose (cGy) 7,000 ARIA 09/05/2024 1:23 PM [employer] us Not In File Miscellaneous RADIATION ONCOLOGY ORD ERABLES Final Result Performing Organization Address [facility] [address]/[facility] Co de Phone Number TYRONE * Urinalysis reflex to microscopic and culture Urine, clean voided (08/03/2024 11:39 AM [employer]) Color, ur Straw Yellow Clarity, ur Clear Clear [facility] Specific gravity, ur 1.004 1.003 - 1.030 [facility] pH, urine 7.0 [facility] Comment: Interpretive Data ? Urine pH is affected by diet, medications, systemic acid-base disturbances, and renal tubular function. ??pH may affect urinary stone formation. ??For example, urine pH below 6.0 may help reduce the tendency for calcium phosphate stones and pH greater than 6.0 may reduce the tendency for uric acid stone formation. Source: [employer] Current Interpretive Data was last revised on 2017 Protein, ur ql Negative Negative [facility] Glucose, ur ql Negative Negative [facility] Ketones, ur Negative Negative [facility] Bilirubin, ur Negative Negative [facility] Blood, ur Negative Negative [facility] Urobilinogen, ur <2.0 <2.0 mg/dL [facility] Nitrite, ur Negative Negative [facility] Leukocyte esterase, ur Negative Negative [facility] UA reflex comment Reflex conditions for microscopic UA and culture not met. 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 MRI PELVIS W WO CONTRAST REASON FOR STUDY: ?? Prostate cancer, initial staging, high risk ?? Elevated PSA to 10.0. Diagnosed recently with cancer after PET scan ?? TECHNIQUE: MRI of the pelvis performed ?? without and with ??intravenous contrast according to the prostate protocol. All images stored on PACS. ? CONTRAST TYPE/DOSE: ?? 20mL of GADOTERATE MEGLUMINE 0.5 MMOL/ML INTRAVENOUS SOLUTION (SO) ??injected via ?? intravenous COMPARISON: ?? Prior PET-CT dated 06/01/2024. ??History of prostate biopsy on 04/30/2024 with a Anil score of 7. ??correlated with recent clinic notes and biopsy results if available. FINDINGS: PROSTATE: Size: ?? 4.1 x 4.7 x 4.2 ??cm. ??Volume: ?? 42.38 ??cc. ??PSA: ?? 10 ??Ng/mL. ??PSA density: ?? 0.24 ??Ng/ml/cc. TRANSITIONAL ZONE: ?? There are multiple small nodules of varying T2 intensity with T2 hypointense rims as seen with prostatic hyperplasia. PERIPHERAL ZONE: Lesion 1: There is a lesion noted in the posterior right peripheral zone at the base of the gland measuring 3.2 cm in the transverse dimension by 2.6 cm in the AP dimension demonstrating hypointense T2 signal, hypointense ADC signal, and hyperintense DWI signal (axial T2 image 51, ADC image 21, DWI image 19). ??This lesion involve the posterior left peripheral zone and extends anteriorly involving the posterior aspects of the bilateral transitional zones at the level of the base of the gland. ??This lesion has a large zone of contact with capsule posteriorly measuring 3.2 cm with focal bulging and irregularity of the capsule with extension of the lesion into the seminal vesicles, which is predominantly involving the right seminal vesicles. SEMINAL VESICLES: ?? The lesion described above involves the bilateral seminal vesicles near the base of the prostate gland, which is greater on the right than the left. NEUROVASCULAR BUNDLE: ?? The bilateral neurovascular bundles are grossly symmetrical and unremarkable. ??The aforementioned lesion does abut the right neurovascular bundle without definite evidence of abnormal enhancement or thickening. LYMPH NODES: ?? There is no definite evidence of pelvic lymphadenopathy. URINARY: ?? There is mild mucosal thickening of the urinary bladder. GI: ?The visualized bowel appears grossly unremarkable. ??There are small bilateral fat containing inguinal hernias. ??There is no definite evidence of free fluid in the pelvis. MUSCULOSKELETAL: ?? There is no definite evidence of aggressive appearing osseous lesion. ??There are degenerative changes of the spine and bilateral hips. OTHER: ?? No other significant finding. IMPRESSION: Large lesion involving the posterior right peripheral zone at the base of the gland extending into the left peripheral zone at the base of the gland along with involvement of the posterior aspects of the bilateral transitional zones at the level of the base of the gland, which is greater on the right than the left. This lesion has a large zone of contact with the capsule posteriorly with focal bulging and irregularity of the capsule with extension of the lesion into the base of the seminal vesicles as described above. ??PIRADS 5: Very High Suspicion. ??EPE grade 3. No definite evidence of pelvic lymphadenopathy. Mild mucosal thickening of the urinary bladder, which may be related to underdistention versus cystitis. Clinical correlation with urinary analysis is recommended as clinically indicated. THIS IS AN ELECTRONICALLY VERIFIED FINAL REPORT 07/04/2024 1:17 PM - Electronically signed by ??Koffi HARRIS D: ??07/04/2024 1:17 PM T: Report ID: [id number] Reading Location: ??[id number] Procedure Note Koffi Cormier DO - 10/09/2024 EXAM DESCRIPTION: MRI PELVIS W WO CONTRAST REASON FOR STUDY: Prostate cancer, initial staging, high risk Elevated PSA to 10.0. Diagnosed recently with cancer after PET scan TECHNIQUE: MRI of the pelvis performed without and with intravenous contrast according to the prostate protocol. All images stored on PACS. CONTRAST TYPE/DOSE: 20mL of GADOTERATE MEGLUMINE 0.5 MMOL/ML INTRAVENOUS SOLUTION (SO) injected via intravenous COMPARISON: Prior PET-CT dated 06/01/2024. History of prostate biopsyon 04/30/2024 with a Ogema score of 7. correlated with recent clinic notesand biopsy results if available. FINDINGS: PROSTATE: Size: 4.1 x 4.7 x 4.2 cm. Volume: 42.38 cc.PSA: 10 Ng/mL. PSA density: 0.24 Ng/ml/cc. TRANSITIONAL ZONE: There are multiple small nodules of varying C5thesbpced with T2 hypointense rims as seen with prostatic hyperplasia. PERIPHERAL ZONE: Lesion 1: There is a lesion noted in the posterior right peripheral zoneat the base of the gland measuring 3.2 cm in the transverse dimension by 2.6cm in the AP dimension demonstrating hypointense T2 signal, hypointense ADC signal, and hyperintense DWI signal (axial T2 image 51, ADC image 21, DWI image 19). This lesion involve the posterior left peripheral zone andextends anteriorly involving the posterior aspects of the bilateral transitionalzones at the level of the base of the gland. This lesion has a large zone of contact with capsule posteriorly measuring 3.2 cm with focal bulging and irregularity of the capsule with extension of the lesion into the seminal vesicles, which is predominantly involving the right seminal vesicles. SEMINAL VESICLES: The lesion described above involves the bilateralseminal vesicles near the base of the prostate gland, which is greater on theright than the left. NEUROVASCULAR BUNDLE: The bilateral neurovascular bundles are grossly symmetrical and unremarkable. The aforementioned lesion does abut theright neurovascular bundle without definite evidence of abnormal enhancement or thickening. LYMPH NODES: There is no definite evidence of pelvic lymphadenopathy. URINARY: There is mild mucosal thickening of the urinary bladder. GI: The visualized bowel appears grossly unremarkable. There are small bilateral fat containing inguinal hernias. There is no definite evidenceof free fluid in the pelvis. MUSCULOSKELETAL: There is no definite evidence of aggressive appearing osseous lesion. There are degenerative changes of the spine and bilateral hips. OTHER: No other significant finding. IMPRESSION: Large lesion involving the posterior right peripheral zone at the base ofthe gland extending into the left peripheral zone at the base of the [place]ong with involvement of the posterior aspects of the bilateral transitionalzones at the level of the base of the gland, which is greater on the right thanthe left. This lesion has a large zone of contact with the capsule posteriorly with focal bulging and irregularity of the capsule with extension of the lesion into the base of the seminal vesicles as described above. PIRADS5: Very High Suspicion. EPE grade 3. No definite evidence of pelvic lymphadenopathy. Mild mucosal thickening of the urinary bladder, which may be related to underdistention versus cystitis. Clinical correlation with urinaryanalysis is recommended as clinically indicated. THIS IS AN ELECTRONICALLY VERIFIED FINAL REPORT 07/04/2024 1:17 PM - Electronically signed by Koffi Cormier D.O. PS T: Report ID: [id number] Reading Location: [place] [address] Harman Morales MD IMG MRI PROCEDURES Final Resul t * (ABNORMAL) PSA diagnostic (06/15/2024 3:04 PM CDT) PSA-Total 10.00(H) <=6.20 ng/mL Comment: Interpretive Data ?AGE ? SEX ?REFERENCE INTERVAL 0 minutes-150 years ?Female ?None 0 minutes-49 years ? Male ?None ? 50-59 years ? Male ?0-3.90 ? 60-69 years ? Male ?0-5.40 ? 70-79 years ? Male ?0-6.20 ? 80-150 years ?Male ?0-6.20 The Kory PSA Total assay procedure was used. Results from different manufacturers or methods may not be comparable. Serial testing should be performed using the same method. Current interpretive data last revised 22. Blood 06/15/2024 3:04 PM CDT 06/15/2024 8:15 PM CDT Johnson Falcon MD LAB BLOOD ORDERABLES Final Result Performing Organization Address City/State/ZIP [place] Phone Number [facility] [address] [place] [address] from Last 3 Months or Most Recently Relevant to Health Maintenance Insurance [employer] CHOICE MEDICARE PPO MEDICARE FOR LIFE FOR LIFE [employer] CHOICE MEDICARE PPO Care Teams Radiology Therapist Relationship Specialty Start Date End Date Corey Angel MD [address] [facility] [address] [place] [address] PCP - General Internal Medicine 9/23/21 Clem Thomson MD [address] [place] [address] Referring Physician Urology 06/14/24 Harman Morales MD [facility] [address] [place], [place] [id number] Radiation Oncologist Radiation Oncology 06/22/24 James Robert DO [address] [place] [address] MEDICAL ONCOLOGY, [facility] [address] [place] [address] Medical Oncologist/Auto Machinist Hematology and Oncology 07/12/24
--- OUTSIDE RECORDS SUMMARY | 2024-09-30 09:18 | XMS_ITS | Encounter Summary ---
Author Organization [facility] Healthcare Address [address] [place] [address] Care Team Providers Care Airport Attendant Name Role Phone Corey Angel MD Primary Care Provider [phone] Clem Thomson MD Unavailable Harman Morales MD Unavailable [phone] James Robert DO Unavailable [phone] Encounter Details Date Type Department Care Team (Late st Contact Info) Description 09/21/2024 1:00 PM FOREST PATROLMAN Treatment [facility] Medical Office Building 2 Radiation Oncology [address] [place] [address] Social History Tobacco Use Types Packs/Day Years [...] on file Legal Sex Male 2:49 AM FOREST PATROLMAN Gender Identity Male 05/22/2018 10:57 AM CDT Sexual Orientation Straight 11/03/2020 7: 01 PM FOREST PATROLMAN Occupation Industry Job Start Date Job End Date working Not on file Not on file Not on file documented as of this encounter Plan of Treatment Not on file documented as of this encounter Visit Diagnoses Not on filedocumented in this encounter Care Teams Airport Attendant Relationship Specialty Start Date End Date Corey Angel MD [address] [facility] [address] [place] [address] PCP - General Internal Medicine 06/18/21 Clem Thomson MD [address] [facility] [address] [facility] [place] [address] Referring Physician Urology 06/14/24 Harman Morales MD [address] [place] [address] [address] [place] [address] Radiation Oncologist Radiation Oncology 06/22/24 James Robert DO [address] [place] [address] MEDICAL ONCOLOGY, [facility] [address] [place] [address] Medical Oncologist/Geochemistry Teacher Hematology and Oncology 07/12/24 documented as of this encounter
--- OUTSIDE RECORDS SUMMARY | 2024-09-30 09:18 | XMS_ITS | Encounter Summary ---
Author Organization [facility] Healthcare Address [address] [place] [address] Care Team Providers Care Nuclear Medicine Medical Director Name Role Phone Corey Angel MD Primary Care Provider [phone] Clem Thomson MD Unavailable Harman Morales MD Unavailable [phone] James Robert DO Unavailable [phone] Encounter Details Date Type Department Care Team (Late st Contact Info) Description 09/20/2024 Orders Only RAD ONC TREATMENTS Miscellaneous, Not In File Social History Tobacco Use Types Packs/Day Years [...] on file Legal Sex Male 2:49 AM AIRCRAFT CYLINDER MECHANIC Gender Identity Male 05/22/2018 10:57 AM CDT Sexual Orientation Straight 11/03/2020 7: 01 PM AIRCRAFT CYLINDER MECHANIC Occupation Industry Job Start Date Job End Date working Not on file Not on file Not on file documented as of this encounter Plan of Treatment Not on file documented as of this encounter Procedures Procedure Name Priority Date/Time Associated Diagnosis Comments RAD ONC ARIA SESSION SUMMARY 09/20/2024 1:11 PM AIRCRAFT CYLINDER MECHANIC documented in this encounter Results * RAD ONC ARIA SESSION SUMMARY (09/20/2024 1:11 PM AIRCRAFT CYLINDER MECHANIC) Course Name [id number] E_2023 ARIA Course Plan Date 08/20/2024 12:00 PM ARIA Elapsed Days 15 ARIA Treatment Start Date 09/05/2024 ARIA Treatment Site [id number] ARIA Dose Given To Date (cGy) 2,750 ARIA Session Dosage Given (cGy) 250 ARIA Plan ID PROSTATE_L NS ARIA Fractions Treated 11 ARIA Prescribed Dose Per Fraction (cGy) 250 ARIA Prescribed Total Dose (cGy) 7,000 ARIA 09/20/2024 1:11 PM AIRCRAFT CYLINDER MECHANIC us Not In File Miscellaneous RADIATION ONCOLOGY ORD ERABLES Final Result ARIA documented in this encounter Visit Diagnoses Not on filedocumented in this encounter Care Teams Nuclear Medicine Medical Director Relationship Specialty Start Date End Date Corey Angel MD [address] [facility] [address] [place] [address] PCP - General Internal Medicine 06/18/21 Clem Thomson MD 4921 [facility] [address] [place] [address] Referring Physician Urology 06/14/24 Harman Morales MD 14[address] [facility] [address] [place] [address] Radiation Oncologist Radiation Oncology 06/22/24 James Robert DO [address] [place] [address] MEDICAL ONCOLOGY, [address] [address] Medical Oncologist/Watch Engineer Hematology and Oncology 07/12/24 documented as of this encounter
--- OUTSIDE RECORDS SUMMARY | 2024-09-30 09:18 | XMS_ITS | Encounter Summary ---
Author Organization [facility] Healthcare Address [address] [place] [address] Care Team Providers Care Wood Box Maker Name Role Phone Corey Angel MD Primary Care Provider [phone] Clem Thomson MD Unavailable [phone] Harman Morales MD Unavailable [phone] James Robert DO Unavailable [phone] Encounter Details Date Type Department Care Team (Late st Contact Info) Description 09/18/2024 Orders Only RAD ONC TREATMENTS Miscellaneous, [...] on file Legal Sex Male 2:49 AM SALES ASSISTANT Gender Identity Male 05/22/2018 10:57 AM CDT Sexual Orientation Straight 11/03/2020 7: 01 PM SALES ASSISTANT Occupation Industry Job Start Date Job End Date working Not on file Not on file Not on file documented as of this encounter Plan of Treatment Not on file documented as of this encounter Procedures Procedure Name Priority Date/Time Associated Diagnosis Comments RAD ONC ARIA SESSION SUMMARY 09/18/2024 1:16 PM SALES ASSISTANT documented in this encounter Results * RAD ONC ARIA SESSION SUMMARY (09/18/2024 1:16 PM SALES ASSISTANT) Course Name [id number] E_2023 ARIA Course Plan Date 08/20/2024 12:00 PM ARIA Elapsed Days 13 ARIA Treatment Start Date 09/05/2024 ARIA Treatment Site [id number] ARIA Dose Given To Date (cGy) 2,500 ARIA Session Dosage Given (cGy) 250 ARIA Plan ID PROSTATE_L NS ARIA Fractions Treated 10 ARIA Prescribed Dose Per Fraction (cGy) 250 ARIA Prescribed Total Dose (cGy) 7,000 ARIA 09/18/2024 1:16 PM SALES ASSISTANT us Not In File Miscellaneous RADIATION ONCOLOGY ORD ERABLES Final Result ARIA documented in this encounter Visit Diagnoses Not on filedocumented in this encounter Care Teams Wood Box Maker Relationship Specialty Start Date End Date Corey Angel MD [address] [facility] [address] [place] [address] PCP - General Internal Medicine 06/18/21 Clem Thomson MD 4921 [facility] [address] [place] [address] Referring Physician Urology 06/14/24 Harman Morales MD [address] [facility] [address] [place] [address] Radiation Oncologist Radiation Oncology 06/22/24 James Robert DO [address] [place] [address] MEDICAL ONCOLOGY, [address] [address] Medical Oncologist/Senior Strategy Manager Hematology and Oncology 07/12/24 documented as of this encounter
--- OUTSIDE RECORDS SUMMARY | 2024-09-30 09:18 | XMS_ITS | Referral Summary ---
Author Organization [facility] Address [address] [place] [address] Care Team Providers Care Cartoon Animator Name Role Phone Corey Angel MD Primary Care Provider Clem Thomson MD Unavailable Harman Morales MD Unavailable [phone] James Robert DO Unavailable Encounters Date Type Department Care Team Description 09/28/2024 OTV [facility] 2 Radiation Oncology [address] [place] [address] [id number] Ariela Boyle MD Prostate cancer (HCC) (Primary Dx) 09/28/2024 Orders Only RAD ONC TREATMENTS Miscellaneous, Not In File 09/28/2024 1:00 PM GHOST WRITER Treatment [facility] 2 Radiation Oncology [address] [place] [address] [phone] 09/27/2024 Orders Only RAD ONC TREATMENTS Miscellaneous, Not In File 09/27/2024 1:00 PM GHOST WRITER Treatment [facility] 2 Radiation Oncology [address] [place] [address] 95985 09/25/2024 Telephone [facility] 2 Radiation Oncology [address] [place] [address] 26423 Ariela Boyle MD 09/21/2024 [facility] Office Building 2 Radiation Oncology [address] [place] [address] [phone] Harman Morales MD 09/21/2024 Orders Only RAD ONC TREATMENTS Miscellaneous, Not In File 09/21/2024 1:00 PM GHOST WRITER Treatment [facility] 2 Radiation Oncology [address] [place] [address] 08059 09/20/2024 Orders Only RAD ONC TREATMENTS Miscellaneous, Not In File 09/20/2024 1:00 PM GHOST WRITER [facility] 2 Radiation Oncology [address] [place] [address] 43739 09/18/2024 Orders Only RAD ONC TREATMENTS Miscellaneous, Not In File 09/18/2024 1:00 PM GHOST WRITER [facility] 2 Radiation Oncology [address] [place] [address] 39861 09/17/2024 Orders Only RAD ONC TREATMENTS Miscellaneous, Not In File 09/17/2024 1:00 PM [facility] Office Building 2 Radiation Oncology [address] [place] [address] 14720 09/14/2024 [facility] Building 2 Radiation Oncology [address] [place] [address] [phone] Harman Morales MD 09/14/2024 Orders Only RAD ONC TREATMENTS Miscellaneous, Not In File 09/14/2024 1:00 PM GHOST WRITER [facility] 2 Radiation Oncology [address] [place] [address] 56810 09/13/2024 Orders Only RAD ONC TREATMENTS Miscellaneous, Not In File 09/13/2024 1:00 PM GHOST WRITER [facility] 2 Radiation Oncology [address] [place] [address] 66262 09/12/2024 Orders Only RAD ONC TREATMENTS Miscellaneous, Not In File 09/12/2024 1:00 PM GHOST WRITER [facility] 2 Radiation Oncology [address] [place] [address] 32657 09/11/2024 Orders Only RAD ONC TREATMENTS Miscellaneous, Not In File 09/11/2024 1:00 PM GHOST WRITER Treatment [facility] 2 Radiation Oncology [address] [place] [address] 28784 09/10/2024 Orders Only RAD ONC TREATMENTS Miscellaneous, Not In File 09/10/2024 1:00 PM GHOST WRITER Treatment [facility] 2 Radiation Oncology [address] [place] [address] 29913 09/07/2024 OTV [facility] 2 Radiation Oncology [address] [place] [address] [phone] Harman Morales MD 09/07/2024 Orders Only RAD ONC TREATMENTS Miscellaneous, Not In File 09/07/2024 1:00 PM GHOST WRITER Treatment [facility] 2 Radiation Oncology [address] [place] [address] 12105 09/06/2024 Orders Only RAD ONC TREATMENTS Miscellaneous, Not In File 09/06/2024 1:15 PM GHOST WRITER Clinical Support [facility] Building 2 Radiation Oncology [address] [place] [address] [phone] Prostate cancer (HCC) (Primary Dx); Elevated PSA 09/06/2024 1:00 PM GHOST WRITER Treatment [facility] 2 Radiation Oncology [address] [place] [address] 84457 09/05/2024 Orders Only RAD ONC TREATMENTS Miscellaneous, Not In File 09/05/2024 1:00 PM GHOST WRITER Treatment [facility] 2 Radiation Oncology [address] [place] [address] 32685 Harman Morales MD 09/05/2024 1:15 PM GHOST WRITER Treatment [facility] 2 Radiation Oncology [address] [place] [address] 58657 Harman Morales MD 09/03/2024 7:15 PM GHOST WRITER Treatment [facility] 2 Radiation Oncology [address] [place] [address] 44326 08/20/2024 11:00 AM GHOST WRITER Office Visit [facility] 2 Radiation Oncology [address] [place] [address] 89022 Harman Morales MD Prostate cancer (HCC) (Primary Dx) 08/20/2024 11:30 AM GHOST WRITER Treatment [facility] 2 Radiation Oncology [address] [place] [address] 60931 Harman Morales MD 08/17/2024 10:50 AM GHOST WRITER - 08/17/2024 11:59 PM GHOST WRITER Hospital Encounter [facility] Radiation Oncology [address] [place] [address] 10747 Eliezer Pérez MD Prostate cancer (HCC) (Primary Dx) Discharge Disposition: Discharge to home or self care 08/13/2024 Telephone [facility] 2 Radiation Oncology [address] [place] [address] 41374 Taya Cartagena, MICAH 08/10/2024 Orders Only [facility] 2 Radiation Oncology [address] [place] [address] 91404 Taya Cartagena, MICAH 08/09/2024 2:30 PM GHOST WRITER Office Visit [facility] [address] [place] [phone] James Robert DO Prostate cancer (HCC) (Primary Dx) 08/03/2024 11:38 AM GHOST WRITER - 08/03/2024 11:59 PM GHOST WRITER Hospital Encounter [place] [phone] [place] [address] Prostate cancer (HCC) Discharge Disposition: Discharge to home or self care 08/03/2024 Orders Only [facility] 2 Radiation Oncology [address] [place] [address] 81326 Taya Cartagena RN Prostate cancer (HCC) (Primary Dx) 08/03/2024 11:15 AM GHOST WRITER Lab [facility] Outpatient Lab at [address] [address] 07/11/2024 1:00 PM CDT Clinical Support [facility] 2 Radiation Oncology [address] [place] [address] 44262 Prostate cancer (HCC) (Primary Dx) 07/11/2024 1:00 PM CDT Office Visit [facility] 2 Radiation Oncology [address] [place] [address] 14248 Harman Morales MD Prostate cancer (HCC) (Primary Dx) 07/06/2024 Orders Only [facility] 2 Radiation Oncology [address] [place] [address] 68040 Taya Cartagena RN 07/02/2024 2:17 PM CDT - 07/02/2024 11:59 PM CDT Hospital Encounter [facility] MRI [address] [place] [address] Prostate cancer (HCC) Discharge Disposition: Discharge to home or self care from Last 3 Months Allergies No known active allergies Medications esomeprazole [...] 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 Knee pain 04/22/2016 Immunizations Name Administration Dates Next Due Influenza, Trivalent, IM (MDV) 09/08/2016 Social History Tobacco Use Types Packs/Day Years [...] on file Legal Sex Male 2:49 AM GHOST WRITER Gender Identity Male 05/22/2018 10:57 AM CDT Sexual Orientation Straight 11/03/2020 7: 01 PM GHOST WRITER Occupation Industry Job Start Date Job End Date working Not on file Not on file Not on file Last Filed Vital Signs Vital Sign Reading Time Taken Comments Blood Pressure 136/90 09/28/2024 1:22 PM GHOST WRITER Pulse 59 09/28/2024 1:22 PM GHOST WRITER Temperature 36.2 ??C (97.2 ??F) 08/09/2024 3:04 PM CS T Respiratory Rate 16 08/17/2024 12:20 PM GHOST WRITER Oxygen Saturation 100% 09/28/2024 1:22 PM GHOST WRITER Inhaled Oxygen Concentration - - Weight 121.6 kg (268 lb) 09/28/2024 1:22 PM GHOST WRITER Height 179.1 cm (5' 10.5 ) 08/09/2024 3:04 PM CS T Body Mass Index 37.91 08/09/2024 3:04 PM GHOST WRITER Plan of Treatment Not on file Procedures Procedure Name Priority Date/Time Associated Diagnosis Comments RAD ONC ARIA SESSION SUMMARY 09/28/2024 1:13 PM GHOST WRITER RAD ONC ARIA SESSION SUMMARY 09/27/2024 1:07 PM GHOST WRITER RAD ONC ARIA SESSION SUMMARY 09/21/2024 1:09 PM GHOST WRITER RAD ONC ARIA SESSION SUMMARY 09/20/2024 1:11 PM GHOST WRITER RAD ONC ARIA SESSION SUMMARY 09/18/2024 1:16 PM GHOST WRITER RAD ONC ARIA SESSION SUMMARY 09/17/2024 1:16 PM GHOST WRITER RAD ONC ARIA SESSION SUMMARY 09/14/2024 1:12 PM GHOST WRITER RAD ONC ARIA SESSION SUMMARY 09/13/2024 1:23 PM GHOST WRITER RAD ONC ARIA SESSION SUMMARY 09/12/2024 1:16 PM GHOST WRITER RAD ONC ARIA SESSION SUMMARY 09/11/2024 1:16 PM GHOST WRITER RAD ONC ARIA SESSION SUMMARY 09/10/2024 1:15 PM GHOST WRITER RAD ONC ARIA SESSION SUMMARY 09/07/2024 1:17 PM GHOST WRITER RAD ONC ARIA SESSION SUMMARY 09/06/2024 1:12 PM GHOST WRITER RAD ONC ARIA SESSION SUMMARY 09/05/2024 1:23 PM GHOST WRITER URINALYSIS AND REFLEX TO MICROSCOPIC AND CULTURE Routine 08/03/2024 11:39 AM GHOST WRITER Prostate cancer (HCC) MRI PELVIS W WO CONTRAST Schedule Routine, Read Routine (OP Routine) 07/02/2024 3:47 PM CDT Prostate cancer (HCC) PSA DIAGNOSTIC Routine 06/15/2024 3:04 PM CDT Prostate cancer (HCC) from Last 3 Months or Most Recently Relevant to Health Maintenance Results * RAD ONC ARIA SESSION SUMMARY (09/28/2024 1:13 PM GHOST WRITER) Course Name [email or web address]_[email or web address] E_2023 ARIA Course Plan Date 08/20/2024 12:00 PM ARIA Elapsed Days 23 ARIA Treatment Start Date 09/05/2024 ARIA Treatment Site [id number] ARIA Dose Given To Date (cGy) 3,500 ARIA Session Dosage Given (cGy) 250 ARIA Plan ID PROSTATE_L NS ARIA Fractions Treated 14 ARIA Prescribed Dose Per Fraction (cGy) 250 ARIA Prescribed Total Dose (cGy) 7,000 ARIA 09/28/2024 1:13 PM GHOST WRITER us Not In File Miscellaneous RADIATION ONCOLOGY ORD ERABLES Final Result Performing Organization Address City/[facility] Co de Phone Number ARIKay * RAD ONC ARIA SESSION SUMMARY (09/27/2024 1:07 PM GHOST WRITER) Course Name [email or web address]_PROSTAT E ARIA Course Plan Date 08/20/2024 12:00 PM ARIA Elapsed Days 22 ARIA Treatment Start Date 09/05/2024 ARIA Treatment Site [id number] ARIA Dose Given To Date (cGy) 3,250 ARIA Session Dosage Given (cGy) 250 ARIA Plan ID PROSTATE_L NS ARIA Fractions Treated 13 ARIA Prescribed Dose Per Fraction (cGy) 250 ARIA Prescribed Total Dose (cGy) 7,000 ARIA 09/27/2024 1:07 PM GHOST WRITER us Not In File Miscellaneous RADIATION ONCOLOGY ORD ERABLES Final Result ARIKay * RAD ONC ARIA SESSION SUMMARY (09/21/2024 1:09 PM GHOST WRITER) Course Name [email or web address]_PROSTAT E ARIA Course Plan Date 08/20/2024 12:00 PM ARIA Elapsed Days 16 ARIA Treatment Start Date 09/05/2024 ARIA Treatment Site [id number] ARIA Dose Given To Date (cGy) 3,000 ARIA Session Dosage Given (cGy) 250 ARIA Plan ID PROSTATE_L NS ARIA Fractions Treated 12 ARIA Prescribed Dose Per Fraction (cGy) 250 ARIA Prescribed Total Dose (cGy) 7,000 ARIA 09/21/2024 1:09 PM GHOST WRITER us Not In File Miscellaneous RADIATION ONCOLOGY ORD ERABLES Final Result ARIA * RAD ONC ARIA SESSION SUMMARY (09/20/2024 1:11 PM GHOST WRITER) Course Name [email or web address]_[email or web address] ARIA Course Plan Date 08/20/2024 12:00 PM ARIA Elapsed Days 15 ARIA Treatment Start Date 09/05/2024 ARIA Treatment Site [id number] ARIA Dose Given To Date (cGy) 2,750 ARIA Session Dosage Given (cGy) 250 ARIA Plan ID PROSTATE_L NS ARIA Fractions Treated 11 ARIA Prescribed Dose Per Fraction (cGy) 250 ARIA Prescribed Total Dose (cGy) 7,000 ARIA 09/20/2024 1:11 PM GHOST WRITER us Not In File Miscellaneous RADIATION ONCOLOGY ORD ERABLES Final Result ARIA * RAD ONC ARIA SESSION SUMMARY (09/18/2024 1:16 PM GHOST WRITER) Course Name [email or web address]_PROSTAT E ARIA Course Plan Date 08/20/2024 12:00 PM ARIA Elapsed Days 13 ARIA Treatment Start Date 09/05/2024 ARIA Treatment Site [id number] ARIA Dose Given To Date (cGy) 2,500 ARIA Session Dosage Given (cGy) 250 ARIA Plan ID PROSTATE_L NS ARIA Fractions Treated 10 ARIA Prescribed Dose Per Fraction (cGy) 250 ARIA Prescribed Total Dose (cGy) 7,000 ARIA 09/18/2024 1:16 PM GHOST WRITER us Not In File Miscellaneous RADIATION ONCOLOGY ORD ERABLES Final Result ARIA * RAD ONC ARIA SESSION SUMMARY (09/17/2024 1:16 PM GHOST WRITER) Course Name C1_PROSTAT E_2023 ARIA Course Plan Date 08/20/2024 12:00 PM ARIA Elapsed Days 12 ARIA Treatment Start Date 09/05/2024 ARIA Treatment Site [id number] ARIA Dose Given To Date (cGy) 2,250 ARIA Session Dosage Given (cGy) 250 ARIA Plan ID PROSTATE_L NS ARIA Fractions Treated 9 ARIA Prescribed Dose Per Fraction (cGy) 250 ARIA Prescribed Total Dose (cGy) 7,000 ARIA 09/17/2024 1:16 PM GHOST WRITER us Not In File Miscellaneous RADIATION ONCOLOGY ORD ERABLES Final Result Performing Organization Address [facility] Co de Phone Number ARIA * RAD ONC ARIA SESSION SUMMARY (09/14/2024 1:12 PM GHOST WRITER) Course Name C1_PROSTAT E_2023 ARIA Course Plan Date 08/20/2024 12:00 PM ARIA Elapsed Days 9 ARIA Treatment Start Date 09/05/2024 ARIA Treatment Site [id number]_7000 ARIA Dose Given To Date (cGy) 2,000 ARIA Session Dosage Given (cGy) 250 ARIA Plan ID PROSTATE_L NS ARIA Fractions Treated 8 ARIA Prescribed Dose Per Fraction (cGy) 250 ARIA Prescribed Total Dose (cGy) 7,000 ARIA 09/14/2024 1:12 PM GHOST WRITER us Not In File Miscellaneous RADIATION ONCOLOGY ORD ERABLES Final Result ARIA * RAD ONC ARIA SESSION SUMMARY (09/13/2024 1:23 PM GHOST WRITER) Course Name [email or web address]_PROSTAT ARIA Course Plan Date 08/20/2024 12:00 PM ARIA Elapsed Days 8 ARIA Treatment Start Date 09/05/2024 ARIA Treatment Site [id number]_7000 ARIA Dose Given To Date (cGy) 1,750 ARIA Session Dosage Given (cGy) 250 ARIA Plan ID PROSTATE_L NS ARIA Fractions Treated 7 ARIA Prescribed Dose Per Fraction (cGy) 250 ARIA Prescribed Total Dose (cGy) 7,000 ARIA 09/13/2024 1:23 PM GHOST WRITER us Not In File Miscellaneous RADIATION ONCOLOGY ORD ERABLES Final Result Performing Organization Address City/[facility] Co de Phone Number ARIA * RAD ONC ARIA SESSION SUMMARY (09/12/2024 1:16 PM GHOST WRITER) Course Name [email or web address]_PROSTAT ARIA Course Plan Date 08/20/2024 12:00 PM ARIA Elapsed Days 7 ARIA Treatment Start Date 09/05/2024 ARIA Treatment Site [id number]_7000 ARIA Dose Given To Date (cGy) 1,500 ARIA Session Dosage Given (cGy) 250 ARIA Plan ID PROSTATE_L NS ARIA Fractions Treated 6 ARIA Prescribed Dose Per Fraction (cGy) 250 ARIA Prescribed Total Dose (cGy) 7,000 ARIA 09/12/2024 1:16 PM GHOST WRITER us Not In File Miscellaneous RADIATION ONCOLOGY ORD ERABLES Final Result ARIA * RAD ONC ARIA SESSION SUMMARY (09/11/2024 1:16 PM GHOST WRITER) Course Name [email or web address]_PROSTAT ARIA Course Plan Date 08/20/2024 12:00 PM ARIA Elapsed Days 6 ARIA Treatment Start Date 09/05/2024 ARIA Treatment Site [id number]_7000 ARIA Dose Given To Date (cGy) 1,250 ARIA Session Dosage Given (cGy) 250 ARIA Plan ID PROSTATE_L NS ARIA Fractions Treated 5 ARIA Prescribed Dose Per Fraction (cGy) 250 ARIA Prescribed Total Dose (cGy) 7,000 ARIA 09/11/2024 1:16 PM GHOST WRITER us Not In File Miscellaneous RADIATION ONCOLOGY ORD ERABLES Final Result Performing Organization Address [facility]/ZIP Co de Phone Number ARIKay * RAD ONC ARIA SESSION SUMMARY (09/10/2024 1:15 PM GHOST WRITER) Course Name C1_PROSTAT E_2023 ARIA Course Plan Date 08/20/2024 12:00 PM ARIA Elapsed Days 5 ARIA Treatment Start Date 09/05/2024 ARIA Treatment Site [id number]_7000 ARIA Dose Given To Date (cGy) 1,000 ARIA Session Dosage Given (cGy) 250 ARIA Plan ID PROSTATE_L NS ARIA Fractions Treated 4 ARIA Prescribed Dose Per Fraction (cGy) 250 ARIA Prescribed Total Dose (cGy) 7,000 ARIA 09/10/2024 1:15 PM GHOST WRITER us Not In File Miscellaneous RADIATION ONCOLOGY ORD ERABLES Final Result Performing Organization Address [facility] de Phone Number ARIA * RAD ONC ARIA SESSION SUMMARY (09/07/2024 1:17 PM GHOST WRITER) Course Name C1_PROSTAT E_2023 ARIA Course Plan Date 08/20/2024 12:00 PM ARIA Elapsed Days 2 ARIA Treatment Start Date 09/05/2024 ARIA Treatment Site [id number]_7000 ARIA Dose Given To Date (cGy) 750 ARIA Session Dosage Given (cGy) 250 ARIA Plan ID PROSTATE_L NS ARIA Fractions Treated 3 ARIA Prescribed Dose Per Fraction (cGy) 250 ARIA Prescribed Total Dose (cGy) 7,000 ARIA 09/07/2024 1:17 PM GHOST WRITER us Not In File Miscellaneous RADIATION ONCOLOGY ORD ERABLES Final Result ARIA * RAD ONC ARIA SESSION SUMMARY (09/06/2024 1:12 PM GHOST WRITER) Course Name C1_PROSTAT E ARIA Course Plan Date 08/20/2024 12:00 PM ARIA Elapsed Days 1 ARIA Treatment Start Date 09/05/2024 ARIA Treatment Site [id number]_7000 ARIA Dose Given To Date (cGy) 500 ARIA Session Dosage Given (cGy) 250 ARIA Plan ID PROSTATE_L NS ARIA Fractions Treated 2 ARIA Prescribed Dose Per Fraction (cGy) 250 ARIA Prescribed Total Dose (cGy) 7,000 ARIA 09/06/2024 1:12 PM GHOST WRITER us Not In File Miscellaneous RADIATION ONCOLOGY ORD ERABLES Final Result Performing Organization Address [facility] Co de Phone Number TYRONE * RAD ONC ARIA SESSION SUMMARY (09/05/2024 1:23 PM GHOST WRITER) Course Name C1_PROSTAT ARIA Course Plan Date 08/20/2024 12:00 PM ARIA Elapsed Days 0 ARIA Treatment Start Date 09/05/2024 ARIA Treatment Site [id number]_7000 ARIA Dose Given To Date (cGy) 250 ARIA Session Dosage Given (cGy) 250 ARIA Plan ID PROSTATE_L NS ARIA Fractions Treated 1 ARIA Prescribed Dose Per Fraction (cGy) 250 ARIA Prescribed Total Dose (cGy) 7,000 ARIA 09/05/2024 1:23 PM GHOST WRITER us Not In File Miscellaneous RADIATION ONCOLOGY ORD ERABLES Final Result ARIA * Urinalysis reflex to microscopic and culture Urine, clean voided (08/03/2024 11:39 AM GHOST WRITER) Color, ur Straw Yellow Clarity, ur Clear [...] tendency for uric acid stone formation. Source: [facility] Current Interpretive Data was last revised on [...] microscopic UA and culture not met. CERNER Urine, clean voided 08/03/2024 11:39 AM GHOST WRITER 08/03/2024 3:00 PM GHOST WRITER us Harman Morales MD LAB MICROBIOLOGY - GENERAL ORD ERABLES Final Result [facility] [id number] [address] [place] [address] * MRI Pelvis W WO Contrast (07/02/2024 [...] of prostate biopsy on 04/30/2024 with a Stokes score of 7. ??correlated with recent clinic [...] 1:17 PM - Electronically signed by ??Koffi Cormier D.O. PS D: ??07/04/2024 1:17 PM T: Report ID: [id number] Reading Location: ??[id number] Procedure Note Koffi Cormier, DO - 07/04/2024 EXAM DESCRIPTION: MRI PELVIS W WO CONTRAST [...] History of prostate biopsyon 04/30/2024 with a Anil score of 7. correlated with recent clinic notesand biopsy results if available. FINDINGS: PROSTATE: Size: 4.1 x 4.7 x 4.2 cm. Volume: 42.38 cc.PSA: 10 Ng/mL. PSA density: 0.24 Ng/ml/cc. TRANSITIONAL ZONE: There are multiple small nodules of varying [id number] with T2 hypointense rims as seen with [...] 1:17 PM - Electronically signed by Koffi HARRIS T: Report ID: [id number] Reading Location: [place] [address] us Harman Morales MD IM MRI PROCEDURES Final Resul t * (ABNORMAL) [...] 3:04 PM CDT 06/15/2024 8:15 PM CDT us Johnson Falcon MD LAB BLOOD ORDERABLES Final Result Performing Organization Address City/State/ZIP [place] Phone Number [place] [address] [address] [place] [address] from Last 3 Months or Most Recently Relevant to Health Maintenance Insurance [employer] MEDICARE PPO MEDICARE FOR LIFE FOR LIFE [employer] CHOICE MEDICARE PPO Care Teams Cartoon Animator Relationship Specialty Start Date End Date Corey Angel MD [address] [employer] [place], [place] [id number] PCP - General Internal Medicine 06/18/21 Clem Thomson MD [address] [facility] [address] [place] [address] Referring Physician Urology 06/14/24 Harman Morales MD [facility] [address] [place], [place] [id number] Radiation Oncologist Radiation Oncology 06/22/24 James Robert DO [address] [facility] [address] [place], [place] [address] Medical Oncologist/Human Resources Receptionist Hematology and Oncology 07/12/24
--- OUTSIDE RECORDS SUMMARY | 2024-09-30 09:18 | XMS_ITS | Encounter Summary ---
Author Organization [facility] Healthcare Address [address] [place] [address] Care Team Providers Care Oakes Machine Operator Name Role Phone Corey Angel MD Primary Care Provider [phone] Clem Thomson MD Unavailable Harman Morales MD Unavailable [phone] James Robert DO Unavailable [phone] Reason for Visit * Reason Comments OTV Encounter Details Date Type Department Care Team (Late st Contact Info) Description 09/14/2024 OTV [facility] Medical Office Building 2 Radiation Oncology [address] [place] [address] Harman Morales MD [address] [place] [address] Social History Tobacco Use Types Packs/Day [...] on file Legal Sex Male 2:49 AM PARTS SALES REPRESENTATIVE Gender Identity Male 05/22/2018 10:57 AM CDT Sexual Orientation Straight 11/03/2020 7: 01 PM PARTS SALES REPRESENTATIVE Occupation Industry Job Start Date Job End Date working Not on file Not on file Not on file documented as of this encounter Last Filed Vital Signs Vital Sign Reading Time Taken Comments Blood Pressure 165/104 09/14/2024 1:21 PM PARTS SALES REPRESENTATIVE Pulse 86 09/14/2024 1:21 PM PARTS SALES REPRESENTATIVE Temperature - - Respiratory Rate - - Oxygen Saturation 98% 09/14/2024 1:21 PM PARTS SALES REPRESENTATIVE Inhaled Oxygen Concentration - - Weight 118.8 kg (262 lb) 09/14/2024 1:21 PM PARTS SALES REPRESENTATIVE Height - - Body Mass Index 37.06 08/09/2024 3:04 PM PARTS SALES REPRESENTATIVE documented in this encounter Progress Notes * Harman Morales MD - 09/14/2024 1:21 PM CST PATIENT NAME: Clem Capellan DATE OF : 1950 TREATING PHYSICIAN:Harman Morales MD DATE OF SERVICE: 09/14/2024 RADIATION ONCOLOGY ON TREATMENT VISIT NOTE DIAGNOSIS:: Cancer Staging Prostate cancer (HCC) Staging form: Prostate, AJCC 8th Edition - Clinical stage from 06/28/2024: Stage IIIB (cT3b, cN0, cM0, PSA: 9.1, Grade Group: 2) - Signed by Harman Morales MD on 06/28/2024 TREATMENT: Radiation Treatments Active Plans PROSTATE_LNS Most recent treatment: Dose planned: 250 cGy (fraction 8 on 09/14/2024) Total: Dose planned: 7,000 cGy Elapsed Days: 9 Reference Points PTV_7000 Most recent treatment: Dose given: 250 cGy (on 09/14/2024) Total: Dose given: 2,000 cGy Elapsed Days: 9 Radiation Treatments No historical radiation treatments to show. SUBJECTIVE: The patient states that he is doing well. Today he has no complaints. Has about 2 bowel movements daily. Does report hemorrhoids are becoming more noticeable now. EXAM: BP (!) 165/104 Pulse 86 Wt 118.8 kg (262 lb) SpO2 98% BMI 37.06 kg/m?? Pain Score and Location 09/14/24 1321 PainSc: 0-No pain No acute distress. No skin changes. Urinary tract effects: 0 - None Gastrointestinal effects: 0 - None Consitutional effects: 0 - None ASSESSMENT: No side effects PLAN: Continue with treatment RAD ONC PAIN PLAN: The patient is not currently having any pain that requires changes in pain management. S SALES REPRESENTATIVE documented in this encounter Plan of Treatment Not on file documented as of this encounter Visit Diagnoses Not on filedocumented in this encounter Care Teams Oakes Machine Operator Relationship Specialty Start Date End Date Corey Angel MD 68[address] [facility] [address] [place] [address] PCP - General Internal Medicine 06/18/21 Clem Thomson MD [address] [place] [address] Referring Physician Urology 06/14/24 Harman Morales MD [facility] [address] [place] [address] Radiation Oncologist Radiation Oncology 06/22/24 James Robert DO [address] [place] [address] MEDICAL ONCOLOGY, [facility] [address] [place] [address] Medical Oncologist/Latin Dance Instructor Hematology and Oncology 07/12/24 documented as of this encounter
--- OUTSIDE RECORDS SUMMARY | 2024-09-30 09:18 | XMS_ITS | Encounter Summary ---
Author Organization [facility] Healthcare Address [address] [place] [address] Care Team Providers Care Compressor Station Chief Engineer Name Role Phone Corey Angel MD Primary Care Provider Clem Thomson MD Unavailable Harman Morales MD Unavailable [phone] James Robert DO Unavailable [phone] Reason for Visit * Reason Comments OTV Encounter Details Date Type Department Care Team (Late st Contact Info) Description 09/21/2024 OTV [facility] Medical Office Building 2 Radiation Oncology [address] [place] [address] Harman Morales MD [address] [place] [address] Social History Tobacco Use Types Packs/Day [...] on file Legal Sex Male 2:49 AM GUNITE MIXER Gender Identity Male 05/22/2018 10:57 AM CDT Sexual Orientation Straight 11/03/2020 7: 01 PM GUNITE MIXER Occupation Industry Job Start Date Job End Date working Not on file Not on file Not on file documented as of this encounter Last Filed Vital Signs Vital Sign Reading Time Taken Comments Blood Pressure 141/98 09/21/2024 1:24 PM GUNITE MIXER Pulse 63 09/21/2024 1:24 PM GUNITE MIXER Temperature - - Respiratory Rate - - Oxygen Saturation 100% 09/21/2024 1:24 PM GUNITE MIXER Inhaled Oxygen Concentration - - Weight 120.2 kg (265 lb) 09/21/2024 1:24 PM GUNITE MIXER Height - - Body Mass Index 37.49 08/09/2024 3:04 PM GUNITE MIXER documented in this encounter Progress Notes * Harman Morales MD - 09/21/2024 1:24 PM CST PATIENT NAME: Clem Capellan DATE OF : 1950 TREATING PHYSICIAN:Harman Morales MD DATE OF SERVICE: 09/21/2024 RADIATION ONCOLOGY ON TREATMENT VISIT NOTE DIAGNOSIS:: Cancer Staging Prostate cancer (HCC) Staging form: Prostate, AJCC 8th Edition - Clinical stage from 06/28/2024: Stage IIIB (cT3b, cN0, cM0, PSA: 9.1, Grade Group: 2) - Signed by Harman Morales MD on 06/28/2024 TREATMENT: Radiation Treatments Active Plans PROSTATE_LNS Most recent treatment: Dose planned: 250 cGy (fraction 12 on 09/21/2024) Total: Dose planned: 7,000 cGy Elapsed Days: 16 Reference Points PTV_7000 Most recent treatment: Dose given: 250 cGy (on 09/21/2024) Total: Dose given: 3,000 cGy Elapsed Days: 16 Radiation Treatments No historical radiation treatments to show. SUBJECTIVE: The patient states that he is doing well. Today he reports increased urinary frequency, particularly at night. He is wondering if he can increase his Flomax dose. Also has noticed almost a 20# wt gain since starting ADT. EXAM: BP 141/98 Pulse 63 Wt 120.2 kg (265 lb) SpO2 100% BMI 37.49 kg/m?? Pain Score and Location 09/21/24 1324 PainSc: 0-No pain No acute distress. No skin changes. Urinary tract effects: 0 - None Gastrointestinal effects: 0 - None Consitutional effects: 0 - None ASSESSMENT: Experiencing anticipated side effects PLAN: Continue with treatment Increase Flomax to 0.8mg qhs. RAD ONC PAIN PLAN: The patient is not currently having any pain that requires changes in pain management. TE MIXER documented in this encounter Plan of Treatment Not on file documented as of this encounter Visit Diagnoses Not on filedocumented in this encounter Care Teams Compressor Station Chief Engineer Relationship Specialty Start Date End Date Corey Angel MD [address] [facility] [address] [place] [address] PCP - General Internal Medicine 06/18/21 Clem Thomson MD 4921 [facility] [address] [place] [address] Referring Physician Urology 06/14/24 Harman Morales MD [facility]8 [facility] 160 [place] [address] Radiation Oncologist Radiation Oncology 06/22/24 James Robert DO 1418 [facility] DIV IM MEDICAL ONCOLOGY, [address] [place] [address] Medical Oncologist/International Relations Professor Hematology and Oncology 07/12/24 documented as of this encounter
--- OUTSIDE RECORDS SUMMARY | 2024-09-30 09:18 | XMS_ITS | Encounter Summary ---
Author Organization [facility] Healthcare Address [address] [place] [address] Care Team Providers Care Technology Instructor Name Role Phone Corey Angel MD Primary Care Provider [phone] Clem Thomson MD Unavailable Harman Morales MD Unavailable [phone] James Robert DO Unavailable [phone] Encounter Details Date Type Department Care Team (Late st Contact Info) Description 09/17/2024 1:00 PM CERTIFIED OPTICIAN Treatment [facility] Medical Office Building 2 Radiation Oncology [address] [place] [address] Social History Tobacco Use Types Packs/Day [...] on file Legal Sex Male 2:49 AM CERTIFIED OPTICIAN Gender Identity Male 05/22/2018 10:57 AM CDT Sexual Orientation Straight 11/03/2020 7: 01 PM CERTIFIED OPTICIAN Occupation Industry Job Start Date Job End Date working Not on file Not on file Not on file documented as of this encounter Plan of Treatment Not on file documented as of this encounter Visit Diagnoses Not on filedocumented in this encounter Care Teams Technology Instructor Relationship Specialty Start Date End Date Corey Angel MD 6812 [facility] [address] [place] [address] PCP - General Internal Medicine 06/18/21 Clem Thomson MD 4921 [facility] 11[address] [facility] [place] [address] Referring Physician Urology 06/14/24 Harman Morales MD [address] [place] [address] [address] [place] [address] Radiation Oncologist Radiation Oncology 06/22/24 James Robert DO [address] [place] [address] MEDICAL ONCOLOGY, [facility] [address] [place] [address] Medical Oncologist/Pharmaceutical Botanist Hematology and Oncology 07/12/24 documented as of this encounter
--- OUTSIDE RECORDS SUMMARY | 2024-09-30 09:18 | XMS_ITS | Encounter Summary ---
Author Organization [facility] Healthcare Address [address] [place] [address] Care Team Providers Care Sales Representative Supervisor Name Role Phone Corey Angel MD Primary Care Provider [phone] Clem Thomson MD Unavailable Harman Morales MD Unavailable [phone] James Robert DO Unavailable [phone] Encounter Details Date Type Department Care Team (Late st Contact Info) Description 09/17/2024 Orders Only RAD ONC TREATMENTS Miscellaneous, [...] on file Legal Sex Male 2:49 AM MOLD CHECKER Gender Identity Male 05/22/2018 10:57 AM CDT Sexual Orientation Straight 11/03/2020 7: 01 PM MOLD CHECKER Occupation Industry Job Start Date Job End Date working Not on file Not on file Not on file documented as of this encounter Plan of Treatment Not on file documented as of this encounter Procedures Procedure Name Priority Date/Time Associated Diagnosis Comments RAD ONC ARIA SESSION SUMMARY 09/17/2024 1:16 PM MOLD CHECKER documented in this encounter Results * RAD ONC ARIA SESSION SUMMARY (09/17/2024 1:16 PM MOLD CHECKER) Course Name C1_PROSTAT E_2023 ARIA Course Plan Date 08/20/2024 12:00 PM ARIA Elapsed Days 12 ARIA Treatment Start Date 09/05/2024 ARIA Treatment Site [id number]_7000 ARIA Dose Given To Date (cGy) 2,250 ARIA Session Dosage Given (cGy) 250 ARIA Plan ID PROSTATE_L NS ARIA Fractions Treated 9 ARIA Prescribed Dose Per Fraction (cGy) 250 ARIA Prescribed Total Dose (cGy) 7,000 ARIA 09/17/2024 1:16 PM MOLD CHECKER us Not In File Miscellaneous RADIATION ONCOLOGY ORD ERABLES Final Result ARIA documented in this encounter Visit Diagnoses Not on filedocumented in this encounter Care Teams Sales Representative Supervisor Relationship Specialty Start Date End Date Corey Angel MD 6812 [facility] [address] [place] [address] PCP - General Internal Medicine 06/18/21 Clem Thomson MD 4921 [facility] [address] [place] [address] Referring Physician Urology 06/14/24 Harman Morales MD 1418 [facility] 160 [place] [address] Radiation Oncologist Radiation Oncology 06/22/24 James Robert DO [address] [place] [address] MEDICAL ONCOLOGY, [address] [address] Medical Oncologist/Car Barn Laborer Hematology and Oncology 07/12/24 documented as of this encounter
--- OUTSIDE RECORDS SUMMARY | 2024-09-30 09:18 | XMS_ITS ---
Author Organization [facility] Address [address] [place] [address] Care Team Providers Care Education Specialist Name Role Phone Corey Angel MD Primary Care Provider [phone] Clem Thomson MD Unavailable Harman Morales MD Unavailable [phone] James Robert DO Unavailable [phone] Active Problems Problem Noted Date Diagnosed Date Prostate cancer 05/02/2024 Cancer Staging:Clinical stage from 06/28/2024:Stage IIIB(cT3b, cN0, cM0, PSA: 9.1, Grade Group: 2) - Signed by Harman Morales MD on 06/28/2024 Elevated PSA 12/19/2023 Ascending aortic aneurysm 06/19/2021 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 Eligard Injection - 45 mg every 24 weeks* Plan Start Date:07/11/2024 Plan Provider:Harman Morales MD Linked Problems Prostate cancer (HCC) Treatment Medications leuprolide acetate (6 month) (FELIX) Past Plans No past plan information found. Radiation Treatments * Plan Last Treated On Elapsed Days Fractions Treated Prescribed Fraction Dose Prescribed Total Dose PROSTATE_LN S 09/28/2024 23 14 250 cGy 7,000 cGy Reference Point Last Treated On Elapsed Days Session Dose Total Dose [id number]_7000 09/28/2024 23 250 cGy 3,500 cGy Lifetime Dose Tracking * Chemical Lifetime Dose Automatic Entry Manual Entr y DLP 1,220 mGycm 1,220 mGycm 0 mGycm
--- OUTSIDE RECORDS SUMMARY | 2024-09-30 09:18 | XMS_ITS | Encounter Summary ---
Author Organization [facility] Healthcare Address [address] [place] [address] Care Team Providers Care Customer Care Voice Consultant Name Role Phone Corey Angel MD Primary Care Provider [phone] Clem Thomson MD Unavailable Harman Morales MD Unavailable [phone] James Robert DO Unavailable [phone] Encounter Details Date Type Department Care Team (Late st Contact Info) Description 09/21/2024 Orders Only RAD ONC TREATMENTS Miscellaneous, [...] on file Legal Sex Male 2:49 AM COMMUNITY RELATIONS LIAISON Gender Identity Male 05/22/2018 10:57 AM CDT Sexual Orientation Straight 11/03/2020 7: 01 PM COMMUNITY RELATIONS LIAISON Occupation Industry Job Start Date Job End Date working Not on file Not on file Not on file documented as of this encounter Plan of Treatment Not on file documented as of this encounter Procedures Procedure Name Priority Date/Time Associated Diagnosis Comments RAD ONC ARIA SESSION SUMMARY 09/21/2024 1:09 PM COMMUNITY RELATIONS LIAISON documented in this encounter Results * RAD ONC ARIA SESSION SUMMARY (09/21/2024 1:09 PM COMMUNITY RELATIONS LIAISON) Course Name C1_PROSTAT E_2023 ARIA Course Plan Date 08/20/2024 12:00 PM ARIA Elapsed Days 16 ARIA Treatment Start Date 09/05/2024 ARIA Treatment Site [id number]_7000 ARIA Dose Given To Date (cGy) 3,000 ARIA Session Dosage Given (cGy) 250 ARIA Plan ID PROSTATE_L NS ARIA Fractions Treated 12 ARIA Prescribed Dose Per Fraction (cGy) 250 ARIA Prescribed Total Dose (cGy) 7,000 ARIA 09/21/2024 1:09 PM COMMUNITY RELATIONS LIAISON us Not In File Miscellaneous RADIATION ONCOLOGY ORD ERABLES Final Result ARIA documented in this encounter Visit Diagnoses Not on filedocumented in this encounter Care Teams Customer Care Voice Consultant Relationship Specialty Start Date End Date Corey Angel MD 6812 [facility] [address] [place] [address] PCP - General Internal Medicine 06/18/21 Clem Thomson MD 4921 [facility] [address] [place] [address] Referring Physician Urology 06/14/24 Harman Morales MD 1418 [facility] [address] [place] [address] Radiation Oncologist Radiation Oncology 06/22/24 James Robert DO [address] [place] [address] MEDICAL ONCOLOGY, [address] [address] Medical Oncologist/Proof Coin Collector Hematology and Oncology 07/12/24 documented as of this encounter
--- OUTSIDE RECORDS SUMMARY | 2024-09-30 09:18 | XMS_ITS | Encounter Summary ---
Author Organization [facility] Healthcare Address [address] [place] [address] Care Team Providers Care Golf Professional Name Role Phone Corey Angel MD Primary Care Provider [phone] Clem Thomson MD Unavailable Harman Morales MD Unavailable [phone] James Robert DO Unavailable [phone] Encounter Details Date Type Department Care Team (Late st Contact Info) Description 09/18/2024 1:00 PM SECONDARY ENGLISH TEACHER Treatment [facility] Medical Office Building 2 Radiation Oncology [address] [place] [address] Social History Tobacco Use Types Packs/Day [...] on file Legal Sex Male 2:49 AM SECONDARY ENGLISH TEACHER Gender Identity Male 05/22/2018 10:57 AM CDT Sexual Orientation Straight 11/03/2020 7: 01 PM SECONDARY ENGLISH TEACHER Occupation Industry Job Start Date Job End Date working Not on file Not on file Not on file documented as of this encounter Plan of Treatment Not on file documented as of this encounter Visit Diagnoses Not on filedocumented in this encounter Care Teams Golf Professional Relationship Specialty Start Date End Date Corey Angel MD 6812 [facility] [address] [place] [address] PCP - General Internal Medicine 06/18/21 Clem Thomson MD 4921 [facility] 11C [facility] [place] [address] Referring Physician Urology 06/14/24 Harman Morales MD [address] [place] [address] [address] [place] [address] Radiation Oncologist Radiation Oncology 06/22/24 James Robert DO [address] [place] [address] MEDICAL ONCOLOGY, [facility] [address] [place] [address] Medical Oncologist/Nuclear Technologist Hematology and Oncology 07/12/24 documented as of this encounter
--- OUTSIDE RECORDS SUMMARY | 2024-09-30 09:18 | XMS_ITS | Encounter Summary ---
Author Organization [facility] Healthcare Address [address] [place] [address] Care Team Providers Care Credit Card Interviewer Name Role Phone Corey Angel MD Primary Care Provider [phone] Clem Thomson MD Unavailable Harman Morales MD Unavailable [phone] James Robert DO Unavailable [phone] Encounter Details Date Type Department Care Team (Late st Contact Info) Description 09/20/2024 1:00 PM MANUAL EQUIPMENT MECHANIC Treatment [facility] Medical Office Building 2 Radiation Oncology [address] [place] [address] Social History Tobacco Use Types Packs/Day [...] on file Legal Sex Male 2:49 AM MANUAL EQUIPMENT MECHANIC Gender Identity Male 05/22/2018 10:57 AM CDT Sexual Orientation Straight 11/03/2020 7: 01 PM MANUAL EQUIPMENT MECHANIC Occupation Industry Job Start Date Job End Date working Not on file Not on file Not on file documented as of this encounter Plan of Treatment Not on file documented as of this encounter Visit Diagnoses Not on filedocumented in this encounter Care Teams Credit Card Interviewer Relationship Specialty Start Date End Date Corey Angel MD 6812 [facility] [address] [place] [address] PCP - General Internal Medicine 06/18/21 Clem Thomson MD 4921 [facility] 11C [facility] [place] [address] Referring Physician Urology 06/14/24 Harman Morales MD [address] [place] [address] [address] [place] [address] Radiation Oncologist Radiation Oncology 06/22/24 James Robert DO [address] [place] [address] MEDICAL ONCOLOGY, [facility] [address] [place] [address] Medical Oncologist/Generating Station Mechanic Hematology and Oncology 07/12/24 documented as of this encounter
--- OUTSIDE RECORDS SUMMARY | 2024-09-30 09:19 | XMS_ITS | Encounter Summary ---
Author Organization [facility] Healthcare Address [address] [place] [address] Care Team Providers Care Criminalist Name Role Phone Corey Angel MD Primary Care Provider Clem Thomson MD Unavailable Harman Morales MD Unavailable [phone] James Robert DO Unavailable [phone] Encounter Details Date Type Department Care Team (Late st Contact Info) Description 09/05/2024 1:00 PM RESEARCH RECRUITER Treatment [facility] Medical Office Building 2 Radiation Oncology [address] [place] [address] Harman Morales MD [address] [place] [address] Social History Tobacco Use Types Packs/Day [...] on file Legal Sex Male 2:49 AM RESEARCH RECRUITER Gender Identity Male 05/22/2018 10:57 AM CDT Sexual Orientation Straight 11/03/2020 7: 01 PM RESEARCH RECRUITER Occupation Industry Job Start Date Job End Date working Not on file Not on file Not on file documented as of this encounter Plan of Treatment Not on file documented as of this encounter Visit Diagnoses Not on filedocumented in this encounter Care Teams Criminalist Relationship Specialty Start Date End Date Corey Angel MD 6812 [facility] [address] INTERNAL MEDICINE [place], [place] [address] PCP - General Internal Medicine 06/18/21 Clem Thomson MD 4921 [facility] [address] [place] [address] Referring Physician Urology 06/14/24 Harman Morales MD [address] [place] [address] [address] [place], [place] [address] Radiation Oncologist Radiation Oncology 06/22/24 James Robert DO [address] [facility] MEDICAL ONCOLOGY, [facility] [address] [place], [place] [address] Medical Oncologist/Wire Rope Fabrication Supervisor Hematology and Oncology 07/12/24 documented as of this encounter
--- OUTSIDE RECORDS SUMMARY | 2024-09-30 09:19 | XMS_ITS | Encounter Summary ---
Author Organization [facility] Healthcare Address [address] [place] [address] Care Team Providers Care Customer Acquisition Manager Name Role Phone Corey Angel MD Primary Care Provider Clem Thomson MD Unavailable Harman Morales MD Unavailable [phone] James Robert DO Unavailable [phone] Encounter Details Date Type Department Care Team (Late st Contact Info) Description 09/05/2024 Orders Only RAD ONC TREATMENTS Miscellaneous, [...] on file Legal Sex Male 2:49 AM BEHAVIORIST Gender Identity Male 05/22/2018 10:57 AM CDT Sexual Orientation Straight 11/03/2020 7: 01 PM BEHAVIORIST Occupation Industry Job Start Date Job End Date working Not on file Not on file Not on file documented as of this encounter Plan of Treatment Not on file documented as of this encounter Procedures Procedure Name Priority Date/Time Associated Diagnosis Comments RAD ONC ARIA SESSION SUMMARY 09/05/2024 1:23 PM BEHAVIORIST documented in this encounter Results * RAD ONC ARIA SESSION SUMMARY (09/05/2024 1:23 PM BEHAVIORIST) Course Name [email or web address]_[email or web address] E_2023 ARIA Course Plan Date 08/20/2024 12:00 PM ARIA Elapsed Days 0 ARIA Treatment Start Date 09/05/2024 ARIA Treatment Site [id number] ARIA Dose Given To Date (cGy) 250 ARIA Session Dosage Given (cGy) 250 ARIA Plan ID PROSTATE_L NS ARIA Fractions Treated 1 ARIA Prescribed Dose Per Fraction (cGy) 250 ARIA Prescribed Total Dose (cGy) 7,000 ARIA 09/05/2024 1:23 PM BEHAVIORIST us Not In File Miscellaneous RADIATION ONCOLOGY ORD ERABLES Final Result ARIA documented in this encounter Visit Diagnoses Not on filedocumented in this encounter Care Teams Customer Acquisition Manager Relationship Specialty Start Date End Date Corey Angel MD [address] [facility] [address] [place] [address] PCP - General Internal Medicine 06/18/21 Clem Thomson MD [address] [facility] 11[address] [place] [address] Referring Physician Urology 06/14/24 Harman Morales MD 1418 [facility] [address] [place] [address] Radiation Oncologist Radiation Oncology 06/22/24 James Robert DO [address] [place] [place] [address] MEDICAL ONCOLOGY, [address] [address] Medical Oncologist/Preventive Maintenance Coordinator Hematology and Oncology 07/12/24 documented as of this encounter
--- OUTSIDE RECORDS SUMMARY | 2024-09-30 09:19 | XMS_ITS | Encounter Summary ---
Author Organization [facility] Healthcare Address [address] [place] [address] Care Team Providers Care Ui Developer With Angular Js Name Role Phone Corey Angel MD Primary Care Provider [phone] Clem Thomson MD Unavailable Harman Morales MD Unavailable [phone] James Robert DO Unavailable [phone] Encounter Details Date Type Department Care Team (Late st Contact Info) Description 09/06/2024 Orders Only RAD ONC TREATMENTS Miscellaneous, [...] on file Legal Sex Male 2:49 AM FLUME MAKER Gender Identity Male 05/22/2018 10:57 AM CDT Sexual Orientation Straight 11/03/2020 7: 01 PM FLUME MAKER Occupation Industry Job Start Date Job End Date working Not on file Not on file Not on file documented as of this encounter Plan of Treatment Not on file documented as of this encounter Procedures Procedure Name Priority Date/Time Associated Diagnosis Comments RAD ONC ARIA SESSION SUMMARY 09/06/2024 1:12 PM FLUME MAKER documented in this encounter Results * RAD ONC ARIA SESSION SUMMARY (09/06/2024 1:12 PM FLUME MAKER) Course Name C1_PROSTAT E_2023 ARIA Course Plan Date 08/20/2024 12:00 PM ARIA Elapsed Days 1 ARIA Treatment Start Date 09/05/2024 ARIA Treatment Site [id number] ARIA Dose Given To Date (cGy) 500 ARIA Session Dosage Given (cGy) 250 ARIA Plan ID PROSTATE_L NS ARIA Fractions Treated 2 ARIA Prescribed Dose Per Fraction (cGy) 250 ARIA Prescribed Total Dose (cGy) 7,000 ARIA 09/06/2024 1:12 PM FLUME MAKER us Not In File Miscellaneous RADIATION ONCOLOGY ORD ERABLES Final Result ARIA documented in this encounter Visit Diagnoses Not on filedocumented in this encounter Care Teams Ui Developer With Angular Js Relationship Specialty Start Date End Date Corey Angel MD [address] [facility] [address] [place] [address] PCP - General Internal Medicine 06/18/21 Clem Thomson MD 4921 [facility] [address] [place] [address] Referring Physician Urology 06/14/24 Harman Morales MD 1418 [facility] 160 [place] [address] Radiation Oncologist Radiation Oncology 06/22/24 James Robert DO [address] [place] [address] MEDICAL ONCOLOGY, [address] [address] Medical Oncologist/Salon Customer Experience Specialist Hematology and Oncology 07/12/24 documented as of this encounter
--- OUTSIDE RECORDS SUMMARY | 2024-09-30 09:19 | XMS_ITS | Encounter Summary ---
Author Organization [facility] Healthcare Address [address] [place] [address] Care Team Providers Care Grinding And Spraying Supervisor Name Role Phone Corey Angel MD Primary Care Provider [phone] Clem Thomson MD Unavailable Harman Morales MD Unavailable [phone] James Robert DO Unavailable [phone] Encounter Details Date Type Department Care Team (Late st Contact Info) Description 09/14/2024 1:00 PM BUSINESS MACHINES TEACHER Treatment [facility] Medical Office Building 2 Radiation Oncology [address] [place] [address] Social History Tobacco Use Types Packs/Day [...] on file Legal Sex Male 2:49 AM BUSINESS MACHINES TEACHER Gender Identity Male 05/22/2018 10:57 AM CDT Sexual Orientation Straight 11/03/2020 7: 01 PM BUSINESS MACHINES TEACHER Occupation Industry Job Start Date Job End Date working Not on file Not on file Not on file documented as of this encounter Plan of Treatment Not on file documented as of this encounter Visit Diagnoses Not on filedocumented in this encounter Care Teams Grinding And Spraying Supervisor Relationship Specialty Start Date End Date Corey Angel MD [address] [facility] [address] [place] [address] PCP - General Internal Medicine 06/18/21 Clem Thomson MD 49[address] [facility] 11[address] [facility] [place] [address] Referring Physician Urology 06/14/24 Harman Morales MD [address] [place] [address] 160 [place] [address] Radiation Oncologist Radiation Oncology 06/22/24 James Robert DO [address] [place] [address] MEDICAL ONCOLOGY, [facility] 180 [place] [address] Medical Oncologist/Plastic Machine Operator Hematology and Oncology 07/12/24 documented as of this encounter
--- OUTSIDE RECORDS SUMMARY | 2024-09-30 09:19 | XMS_ITS | Encounter Summary ---
Author Organization [facility] Healthcare Address [address] [place] [address] Care Team Providers Care Transcribing Operators Supervisor Name Role Phone Corey Angel MD Primary Care Provider [phone] Clem Thomson MD Unavailable Harman Morales MD Unavailable [phone] James Robert DO Unavailable [phone] Encounter Details Date Type Department Care Team (Late st Contact Info) Description 09/12/2024 Orders Only RAD ONC TREATMENTS Miscellaneous, [...] on file Legal Sex Male 2:49 AM INJECTION MACHINE OPERATOR Gender Identity Male 05/22/2018 10:57 AM CDT Sexual Orientation Straight 11/03/2020 7: 01 PM INJECTION MACHINE OPERATOR Occupation Industry Job Start Date Job End Date working Not on file Not on file Not on file documented as of this encounter Plan of Treatment Not on file documented as of this encounter Procedures Procedure Name Priority Date/Time Associated Diagnosis Comments RAD ONC ARIA SESSION SUMMARY 09/12/2024 1:16 PM INJECTION MACHINE OPERATOR documented in this encounter Results * RAD ONC ARIA SESSION SUMMARY (09/12/2024 1:16 PM INJECTION MACHINE OPERATOR) Course Name C1_PROSTAT E_2023 ARIA Course Plan Date 08/20/2024 12:00 PM ARIA Elapsed Days 7 ARIA Treatment Start Date 09/05/2024 ARIA Treatment Site [id number] ARIA Dose Given To Date (cGy) 1,500 ARIA Session Dosage Given (cGy) 250 ARIA Plan ID PROSTATE_L NS ARIA Fractions Treated 6 ARIA Prescribed Dose Per Fraction (cGy) 250 ARIA Prescribed Total Dose (cGy) 7,000 ARIA 09/12/2024 1:16 PM INJECTION MACHINE OPERATOR us Not In File Miscellaneous RADIATION ONCOLOGY ORD ERABLES Final Result ARIA documented in this encounter Visit Diagnoses Not on filedocumented in this encounter Care Teams Transcribing Operators Supervisor Relationship Specialty Start Date End Date Corey Angel MD [address] [facility] [address] [place] [address] PCP - General Internal Medicine 06/18/21 Clem Thomson MD 4921 [facility] 11[address] [place] [address] Referring Physician Urology 06/14/24 Harman Morales MD 1418 [facility] 160 [place] [address] Radiation Oncologist Radiation Oncology 06/22/24 James Robert DO [address] [place] [address] MEDICAL ONCOLOGY, [address] [address] Medical Oncologist/Solutions Market Consultant Hematology and Oncology 07/12/24 documented as of this encounter
--- OUTSIDE RECORDS SUMMARY | 2024-09-30 09:19 | XMS_ITS | Encounter Summary ---
Author Organization [facility] Healthcare Address [address] [place] [address] Care Team Providers Care Crossing Watchman Name Role Phone Corey Angel MD Primary Care Provider [phone] Clem Thomson MD Unavailable Harman Morales MD Unavailable [phone] James Robert DO Unavailable [phone] Encounter Details Date Type Department Care Team (Late st Contact Info) Description 09/07/2024 1:00 PM POWER SYSTEM ELECTRICAL ENGINEER Treatment [facility] Medical Office Building 2 Radiation Oncology [address] [place] [address] Social History Tobacco Use Types Packs/Day [...] on file Legal Sex Male 2:49 AM POWER SYSTEM ELECTRICAL ENGINEER Gender Identity Male 05/22/2018 10:57 AM CDT Sexual Orientation Straight 11/03/2020 7: 01 PM POWER SYSTEM ELECTRICAL ENGINEER Occupation Industry Job Start Date Job End Date working Not on file Not on file Not on file documented as of this encounter Plan of Treatment Not on file documented as of this encounter Visit Diagnoses Not on filedocumented in this encounter Care Teams Crossing Watchman Relationship Specialty Start Date End Date Corey Angel MD 68[address] [facility] [address] [place] [address] PCP - General Internal Medicine 06/18/21 Clem Thomson MD 4921 [facility] 11[address] [facility] [place] [address] Referring Physician Urology 06/14/24 Harman Morales MD [address] [place] [address] 160 [place] [address] Radiation Oncologist Radiation Oncology 06/22/24 James Robert DO [address] [place] [address] MEDICAL ONCOLOGY, [facility] 180 [place] [address] Medical Oncologist/Admitting Counselor Hematology and Oncology 07/12/24 documented as of this encounter
--- OUTSIDE RECORDS SUMMARY | 2024-09-30 09:19 | XMS_ITS | Encounter Summary ---
Author Organization [facility] Healthcare Address [address] [place] [address] Care Team Providers Care Wire Tinner Name Role Phone Corey Angel MD Primary Care Provider [phone] Clem hTomson MD Unavailable Harman Morales MD Unavailable [phone] James Robert DO Unavailable [phone] Encounter Details Date Type Department Care Team (Late st Contact Info) Description 09/12/2024 1:00 PM SENIOR BUSINESS PROCESS ANALYST Treatment [facility] Medical Office Building 2 Radiation Oncology [address] [place] [address] Social History Tobacco Use Types Packs/Day [...] on file Legal Sex Male 2:49 AM SENIOR BUSINESS PROCESS ANALYST Gender Identity Male 05/22/2018 10:57 AM CDT Sexual Orientation Straight 11/03/2020 7: 01 PM SENIOR BUSINESS PROCESS ANALYST Occupation Industry Job Start Date Job End Date working Not on file Not on file Not on file documented as of this encounter Plan of Treatment Not on file documented as of this encounter Visit Diagnoses Not on filedocumented in this encounter Care Teams Wire Tinner Relationship Specialty Start Date End Date Corey Angel MD 68[address] [facility] [address] [place] [address] PCP - General Internal Medicine 06/18/21 Clem Thomson MD 4921 [facility] 11C [facility] [place] [address] Referring Physician Urology 06/14/24 Harman Morales MD [address] [place] [address] 160 [place] [address] Radiation Oncologist Radiation Oncology 06/22/24 James Robert DO [address] [place] [address] MEDICAL ONCOLOGY, [facility] 180 [place] [address] Medical Oncologist/Green Jobs Trainer Hematology and Oncology 07/12/24 documented as of this encounter
--- OUTSIDE RECORDS SUMMARY | 2024-09-30 09:19 | XMS_ITS | Encounter Summary ---
Author Organization [facility] Healthcare Address [address] [place] [address] Care Team Providers Care Stoper Name Role Phone Corey Angel MD Primary Care Provider [phone] Clem Thomson MD Unavailable Harman Morales MD Unavailable [phone] James Robert DO Unavailable [phone] Encounter Details Date Type Department Care Team (Late st Contact Info) Description 09/07/2024 Orders Only RAD ONC TREATMENTS Miscellaneous, [...] on file Legal Sex Male 2:49 AM RETAIL SALES REPRESENTATIVE Gender Identity Male 05/22/2018 10:57 AM CDT Sexual Orientation Straight 11/03/2020 7: 01 PM RETAIL SALES REPRESENTATIVE Occupation Industry Job Start Date Job End Date working Not on file Not on file Not on file documented as of this encounter Plan of Treatment Not on file documented as of this encounter Procedures Procedure Name Priority Date/Time Associated Diagnosis Comments RAD ONC ARIA SESSION SUMMARY 09/07/2024 1:17 PM RETAIL SALES REPRESENTATIVE documented in this encounter Results * RAD ONC ARIA SESSION SUMMARY (09/07/2024 1:17 PM RETAIL SALES REPRESENTATIVE) Course Name C1_PROSTAT E_2023 ARIA Course Plan Date 08/20/2024 12:00 PM ARIA Elapsed Days 2 ARIA Treatment Start Date 09/05/2024 ARIA Treatment Site [id number] ARIA Dose Given To Date (cGy) 750 ARIA Session Dosage Given (cGy) 250 ARIA Plan ID PROSTATE_L NS ARIA Fractions Treated 3 ARIA Prescribed Dose Per Fraction (cGy) 250 ARIA Prescribed Total Dose (cGy) 7,000 ARIA 09/07/2024 1:17 PM RETAIL SALES REPRESENTATIVE us Not In File Miscellaneous RADIATION ONCOLOGY ORD ERABLES Final Result ARIA documented in this encounter Visit Diagnoses Not on filedocumented in this encounter Care Teams Stoper Relationship Specialty Start Date End Date Corey Angel MD 68[address] [facility] [address] [place] [address] PCP - General Internal Medicine 06/18/21 Clem Thomson MD 4921 [facility] 11[address] [place] [address] Referring Physician Urology 06/14/24 Harman Morales MD 1418 [facility] 160 [place] [address] Radiation Oncologist Radiation Oncology 06/22/24 James Robert DO [address] [place] [address] MEDICAL ONCOLOGY, [address] [address] Medical Oncologist/Logistics/Shipper Hematology and Oncology 07/12/24 documented as of this encounter
--- OUTSIDE RECORDS SUMMARY | 2024-09-30 09:19 | XMS_ITS | Encounter Summary ---
Author Organization [facility] Healthcare Address [address] [place] [address] Care Team Providers Care Supervisor Electron Tube Processing Name Role Phone Corey Angel MD Primary Care Provider [phone] Clem Thomson MD Unavailable Harman Morales MD Unavailable [phone] James Robert DO Unavailable [phone] Encounter Details Date Type Department Care Team (Late st Contact Info) Description 09/10/2024 1:00 PM BINGO CHECKER Treatment [facility] Medical Office Building 2 Radiation Oncology [address] [place] [address] Social History Tobacco Use Types Packs/Day [...] on file Legal Sex Male 2:49 AM BINGO CHECKER Gender Identity Male 05/22/2018 10:57 AM CDT Sexual Orientation Straight 11/03/2020 7: 01 PM BINGO CHECKER Occupation Industry Job Start Date Job End Date working Not on file Not on file Not on file documented as of this encounter Plan of Treatment Not on file documented as of this encounter Visit Diagnoses Not on filedocumented in this encounter Care Teams Supervisor Electron Tube Processing Relationship Specialty Start Date End Date Corey Angel MD 6812 [facility] [address] [place] [address] PCP - General Internal Medicine 06/18/21 Clem Thomson MD 4921 [facility] 11C [facility] [place] [address] Referring Physician Urology 06/14/24 Harman Morales MD [address] [place] [address] 160 [place] [address] Radiation Oncologist Radiation Oncology 06/22/24 James Robert DO [address] [place] [address] MEDICAL ONCOLOGY, [facility] 180 [place] [address] Medical Oncologist/Director Erp Hematology and Oncology 07/12/24 documented as of this encounter
--- OUTSIDE RECORDS SUMMARY | 2024-09-30 09:19 | XMS_ITS | Encounter Summary ---
Author Organization [facility] Healthcare Address [address] [place] [address] Care Team Providers Care Ward Secretary Name Role Phone Corey Angel MD Primary Care Provider [phone] Clem Thomson MD Unavailable Harman Morales MD Unavailable [phone] James Robert DO Unavailable Encounter Details Date Type Department Care Team (Late st Contact Info) Description 09/14/2024 Orders Only RAD ONC TREATMENTS Miscellaneous, [...] on file Legal Sex Male 2:49 AM MEDICAL GENETICS DIRECTOR Gender Identity Male 05/22/2018 10:57 AM CDT Sexual Orientation Straight 11/03/2020 7: 01 PM MEDICAL GENETICS DIRECTOR Occupation Industry Job Start Date Job End Date working Not on file Not on file Not on file documented as of this encounter Plan of Treatment Not on file documented as of this encounter Procedures Procedure Name Priority Date/Time Associated Diagnosis Comments RAD ONC ARIA SESSION SUMMARY 09/14/2024 1:12 PM MEDICAL GENETICS DIRECTOR documented in this encounter Results * RAD ONC ARIA SESSION SUMMARY (09/14/2024 1:12 PM MEDICAL GENETICS DIRECTOR) Course Name C1_PROSTAT E_2023 ARIA Course Plan Date 08/20/2024 12:00 PM ARIA Elapsed Days 9 ARIA Treatment Start Date 09/05/2024 ARIA Treatment Site [id number]_7000 ARIA Dose Given To Date (cGy) 2,000 ARIA Session Dosage Given (cGy) 250 ARIA Plan ID PROSTATE_L NS ARIA Fractions Treated 8 ARIA Prescribed Dose Per Fraction (cGy) 250 ARIA Prescribed Total Dose (cGy) 7,000 ARIA 09/14/2024 1:12 PM MEDICAL GENETICS DIRECTOR us Not In File Miscellaneous RADIATION ONCOLOGY ORD ERABLES Final Result ARIA documented in this encounter Visit Diagnoses Not on filedocumented in this encounter Care Teams Ward Secretary Relationship Specialty Start Date End Date Corey Angel MD 6812 [facility] [address] [place] [address] PCP - General Internal Medicine 06/18/21 Clem Thomson MD 4921 [facility] [address] [place] [address] Referring Physician Urology 06/14/24 Harman Morales MD 1418 [facility] 160 [place] [address] Radiation Oncologist Radiation Oncology 06/22/24 James Robert DO [address] [place] [address] MEDICAL ONCOLOGY, [address] [address] Medical Oncologist/Career Portals Teacher Hematology and Oncology 07/12/24 documented as of this encounter
--- OUTSIDE RECORDS SUMMARY | 2024-09-30 09:19 | XMS_ITS | Encounter Summary ---
Author Organization [facility] Healthcare Address [address] [place] [address] Care Team Providers Care Accounts Payable Analyst Name Role Phone Corey Angel MD Primary Care Provider Clem Thomson MD Unavailable Harman Morales MD Unavailable [phone] James Robert DO Unavailable [phone] Encounter Details Date Type Department Care Team (Late st Contact Info) Description 09/05/2024 1:15 PM ENVIRONMENT FRIENDLY LANDSCAPE DESIGNER Treatment [facility] Medical Office Building 2 Radiation Oncology [address] [place] [address] Harman Morales MD [address] [place] [address] Social History Tobacco Use Types Packs/Day [...] on file Legal Sex Male 2:49 AM ENVIRONMENT FRIENDLY LANDSCAPE DESIGNER Gender Identity Male 05/22/2018 10:57 AM CDT Sexual Orientation Straight 11/03/2020 7: 01 PM ENVIRONMENT FRIENDLY LANDSCAPE DESIGNER Occupation Industry Job Start Date Job End Date working Not on file Not on file Not on file documented as of this encounter Plan of Treatment Not on file documented as of this encounter Visit Diagnoses Not on filedocumented in this encounter Care Teams Accounts Payable Analyst Relationship Specialty Start Date End Date Corey Angel MD 6812 [facility] [address] INTERNAL MEDICINE [place], [place] [address] PCP - General Internal Medicine 06/18/21 Clem Thomson MD 4921 [facility] [address] [place] [address] Referring Physician Urology 06/14/24 Harman Morales MD [address] [place] [address] 160 [place], [place] [address] Radiation Oncologist Radiation Oncology 06/22/24 James Robert DO 1418 [facility] MEDICAL ONCOLOGY, [facility] 180 [place], [place] [address] Medical Oncologist/Sales Exec Hematology and Oncology 07/12/24 documented as of this encounter
--- OUTSIDE RECORDS SUMMARY | 2024-09-30 09:19 | XMS_ITS | Encounter Summary ---
Author Organization [facility] Healthcare Address [address] [place] [address] Care Team Providers Care Configuration Developer Name Role Phone Corey Angel MD Primary Care Provider [phone] Clem Thomson MD Unavailable Harman Morales MD Unavailable [phone] James Robert DO Unavailable [phone] Encounter Details Date Type Department Care Team (Late st Contact Info) Description 09/06/2024 1:00 PM LANGUAGE PATHOLOGIST Treatment [facility] Medical Office Building 2 Radiation Oncology [address] [place] [address] Social History Tobacco Use Types Packs/Day [...] on file Legal Sex Male 2:49 AM LANGUAGE PATHOLOGIST Gender Identity Male 05/22/2018 10:57 AM CDT Sexual Orientation Straight 11/03/2020 7: 01 PM LANGUAGE PATHOLOGIST Occupation Industry Job Start Date Job End Date working Not on file Not on file Not on file documented as of this encounter Plan of Treatment Not on file documented as of this encounter Visit Diagnoses Not on filedocumented in this encounter Care Teams Configuration Developer Relationship Specialty Start Date End Date Corey Angel MD 6812 [facility] [address] [place] [address] PCP - General Internal Medicine 06/18/21 Clem Thomson MD 4921 [facility] [address] [facility] [place] [place] [address] Referring Physician Urology 06/14/24 Harman Morales MD [address] [place] [address] 160 [place] [address] Radiation Oncologist Radiation Oncology 06/22/24 James Robert DO [address] [place] [address] MEDICAL ONCOLOGY, [facility] 180 [place] [address] Medical Oncologist/Crane Chaser Hematology and Oncology 07/12/24 documented as of this encounter
--- OUTSIDE RECORDS SUMMARY | 2024-09-30 09:19 | XMS_ITS | Encounter Summary ---
Author Organization [facility] Healthcare Address [address] [place] [address] Care Team Providers Care Platform Material Handler Manager Name Role Phone Corey Angel MD Primary Care Provider [phone] Clem Thomson MD Unavailable Harman Morales MD Unavailable [phone] James Robert DO Unavailable [phone] Encounter Details Date Type Department Care Team (Late st Contact Info) Description 09/11/2024 Orders Only RAD ONC TREATMENTS Miscellaneous, [...] on file Legal Sex Male 2:49 AM CHEMICAL PROCESSING SUPERVISOR Gender Identity Male 05/22/2018 10:57 AM CDT Sexual Orientation Straight 11/03/2020 7: 01 PM CHEMICAL PROCESSING SUPERVISOR Occupation Industry Job Start Date Job End Date working Not on file Not on file Not on file documented as of this encounter Plan of Treatment Not on file documented as of this encounter Procedures Procedure Name Priority Date/Time Associated Diagnosis Comments RAD ONC ARIA SESSION SUMMARY 09/11/2024 1:16 PM CHEMICAL PROCESSING SUPERVISOR documented in this encounter Results * RAD ONC ARIA SESSION SUMMARY (09/11/2024 1:16 PM CHEMICAL PROCESSING SUPERVISOR) Course Name C1_PROSTAT E_2023 ARIA Course Plan Date 08/20/2024 12:00 PM ARIA Elapsed Days 6 ARIA Treatment Start Date 09/05/2024 ARIA Treatment Site [id number]_7000 ARIA Dose Given To Date (cGy) 1,250 ARIA Session Dosage Given (cGy) 250 ARIA Plan ID PROSTATE_L NS ARIA Fractions Treated 5 ARIA Prescribed Dose Per Fraction (cGy) 250 ARIA Prescribed Total Dose (cGy) 7,000 ARIA 09/11/2024 1:16 PM CHEMICAL PROCESSING SUPERVISOR us Not In File Miscellaneous RADIATION ONCOLOGY ORD ERABLES Final Result ARIA documented in this encounter Visit Diagnoses Not on filedocumented in this encounter Care Teams Platform Material Handler Manager Relationship Specialty Start Date End Date Corey Angel MD [address] [facility] [address] [place] [address] PCP - General Internal Medicine 06/18/21 Clem Thomson MD 4921 [facility] [address] [place] [address] Referring Physician Urology 06/14/24 Harman Morales MD 1418 [facility] [address] [place] [address] Radiation Oncologist Radiation Oncology 06/22/24 James Robert DO [address] [place] [address] MEDICAL ONCOLOGY, [address] [address] Medical Oncologist/Emission Specialist Hematology and Oncology 07/12/24 documented as of this encounter
--- OUTSIDE RECORDS SUMMARY | 2024-09-30 09:19 | XMS_ITS | Encounter Summary ---
Author Organization [facility] Healthcare Address [address] [place] [address] Care Team Providers Care Carboy Filler Name Role Phone Corey Angel MD Primary Care Provider [phone] Clem Thomson MD Unavailable Harman Morales MD Unavailable [phone] James Robert DO Unavailable [phone] Encounter Details Date Type Department Care Team (Late st Contact Info) Description 09/13/2024 Orders Only RAD ONC TREATMENTS Miscellaneous, [...] on file Legal Sex Male 2:49 AM ENGINEERING PROFESSIONALS Gender Identity Male 05/22/2018 10:57 AM CDT Sexual Orientation Straight 11/03/2020 7: 01 PM ENGINEERING PROFESSIONALS Occupation Industry Job Start Date Job End Date working Not on file Not on file Not on file documented as of this encounter Plan of Treatment Not on file documented as of this encounter Procedures Procedure Name Priority Date/Time Associated Diagnosis Comments RAD ONC ARIA SESSION SUMMARY 09/13/2024 1:23 PM ENGINEERING PROFESSIONALS documented in this encounter Results * RAD ONC ARIA SESSION SUMMARY (09/13/2024 1:23 PM ENGINEERING PROFESSIONALS) Course Name C1_PROSTAT E_2023 ARIA Course Plan Date 08/20/2024 12:00 PM ARIA Elapsed Days 8 ARIA Treatment Start Date 09/05/2024 ARIA Treatment Site [id number] ARIA Dose Given To Date (cGy) 1,750 ARIA Session Dosage Given (cGy) 250 ARIA Plan ID PROSTATE_L NS ARIA Fractions Treated 7 ARIA Prescribed Dose Per Fraction (cGy) 250 ARIA Prescribed Total Dose (cGy) 7,000 ARIA 09/13/2024 1:23 PM ENGINEERING PROFESSIONALS us Not In File Miscellaneous RADIATION ONCOLOGY ORD ERABLES Final Result ARIA documented in this encounter Visit Diagnoses Not on filedocumented in this encounter Care Teams Carboy Filler Relationship Specialty Start Date End Date Corey Angel MD 68[address] [facility] [address] [place] [address] PCP - General Internal Medicine 06/18/21 Clem Thomson MD 4921 [facility] 11[address] [place] [address] Referring Physician Urology 06/14/24 Harman Morales MD [address] [facility] [address] [place] [address] Radiation Oncologist Radiation Oncology 06/22/24 James Robert DO [address] [place] [address] MEDICAL ONCOLOGY, [address] [address] Medical Oncologist/Director Search Hematology and Oncology 07/12/24 documented as of this encounter
--- OUTSIDE RECORDS SUMMARY | 2024-09-30 09:19 | XMS_ITS | Encounter Summary ---
Author Organization [facility] Healthcare Address [address] [place] [address] Care Team Providers Care Shucker Name Role Phone Corey Angel MD Primary Care Provider [phone] Clem Thomson MD Unavailable Harman Morales MD Unavailable [phone] James Robert DO Unavailable [phone] Encounter Details Date Type Department Care Team (Late st Contact Info) Description 09/03/2024 7:15 PM ELECTRONIC ORGAN MECHANIC Treatment [facility] Medical Office Building 2 Radiation Oncology [address] [place] [address] Social History Tobacco Use Types Packs/Day [...] on file Legal Sex Male 2:49 AM ELECTRONIC ORGAN MECHANIC Gender Identity Male 05/22/2018 10:57 AM CDT Sexual Orientation Straight 11/03/2020 7: 01 PM ELECTRONIC ORGAN MECHANIC Occupation Industry Job Start Date Job End Date working Not on file Not on file Not on file documented as of this encounter Plan of Treatment Not on file documented as of this encounter Visit Diagnoses Not on filedocumented in this encounter Care Teams Shucker Relationship Specialty Start Date End Date Corey Angel MD 68[address] [facility] [address] [place] [address] PCP - General Internal Medicine 06/18/21 Clem Thomson MD 4921 [facility] 11C [facility] [place] [address] Referring Physician Urology 06/14/24 Harman Morales MD [address] [place] [address] 160 [place] [address] Radiation Oncologist Radiation Oncology 06/22/24 James Robert DO [address] [place] [address] MEDICAL ONCOLOGY, [facility] [address] [place] [address] Medical Oncologist/Service Establishment Attendant Hematology and Oncology 07/12/24 documented as of this encounter
--- OUTSIDE RECORDS SUMMARY | 2024-09-30 09:19 | XMS_ITS | Encounter Summary ---
Author Organization [facility] Healthcare Address [address] [place] [address] Care Team Providers Care Residential Program Worker Name Role Phone Corey Angel MD Primary Care Provider [phone] Clem Thomson MD Unavailable Harman Morales MD Unavailable [phone] James Robert DO Unavailable [phone] Encounter Details Date Type Department Care Team (Late st Contact Info) Description 09/11/2024 1:00 PM RETAIL CLERK Treatment [facility] Medical Office Building 2 Radiation Oncology [address] [place] [address] Social History Tobacco Use Types Packs/Day [...] file Legal Sex Male 2:49 AM RETAIL CLERK Gender Identity Male 05/22/2018 10:57 AM CDT Sexual Orientation Straight 11/03/2020 7: 01 PM RETAIL CLERK Occupation Industry Job Start Date Job End Date working Not on file Not on file Not on file documented as of this encounter Plan of Treatment Not on file documented as of this encounter Visit Diagnoses Not on filedocumented in this encounter Care Teams Residential Program Worker Relationship Specialty Start Date End Date Corey Angel MD 68[address] [facility] [address] [place] [address] PCP - General Internal Medicine 06/18/21 Clem Thomson MD 4921 [facility] 11C [facility] [place] [address] Referring Physician Urology 06/14/24 Harman Morales MD [address] [place] [address] 160 [place] [address] Radiation Oncologist Radiation Oncology 06/22/24 James Robert DO [address] [place] [address] MEDICAL ONCOLOGY, [facility] [address] [place] [address] Medical Oncologist/411 Directory Assistance Operator Hematology and Oncology 07/12/24 documented as of this encounter
--- OUTSIDE RECORDS SUMMARY | 2024-09-30 09:19 | XMS_ITS | Encounter Summary ---
Author Organization [facility] Healthcare Address [address] [place] [address] Care Team Providers Care Hand Stitcher Name Role Phone Corey Angel MD Primary Care Provider [phone] Clem Thomson MD Unavailable Harman Morales MD Unavailable [phone] James Robert DO Unavailable [phone] Encounter Details Date Type Department Care Team (Late st Contact Info) Description 09/10/2024 Orders Only RAD ONC TREATMENTS Miscellaneous, [...] on file Legal Sex Male 2:49 AM SCRAP PILER Gender Identity Male 05/22/2018 10:57 AM CDT Sexual Orientation Straight 11/03/2020 7: 01 PM SCRAP PILER Occupation Industry Job Start Date Job End Date working Not on file Not on file Not on file documented as of this encounter Plan of Treatment Not on file documented as of this encounter Procedures Procedure Name Priority Date/Time Associated Diagnosis Comments RAD ONC ARIA SESSION SUMMARY 09/10/2024 1:15 PM SCRAP PILER documented in this encounter Results * RAD ONC ARIA SESSION SUMMARY (09/10/2024 1:15 PM SCRAP PILER) Course Name C1_PROSTAT E_2023 ARIA Course Plan Date 08/20/2024 12:00 PM ARIA Elapsed Days 5 ARIA Treatment Start Date 09/05/2024 ARIA Treatment Site [id number]_7000 ARIA Dose Given To Date (cGy) 1,000 ARIA Session Dosage Given (cGy) 250 ARIA Plan ID PROSTATE_L NS ARIA Fractions Treated 4 ARIA Prescribed Dose Per Fraction (cGy) 250 ARIA Prescribed Total Dose (cGy) 7,000 ARIA 09/10/2024 1:15 PM SCRAP PILER us Not In File Miscellaneous RADIATION ONCOLOGY ORD ERABLES Final Result ARIA documented in this encounter Visit Diagnoses Not on filedocumented in this encounter Care Teams Hand Stitcher Relationship Specialty Start Date End Date Corey Angel MD 68[address] [facility] [address] [place] [address] PCP - General Internal Medicine 06/18/21 Clem Thomson MD 4921 [facility] [address] [place] [address] Referring Physician Urology 06/14/24 Harman Morales MD 1418 [facility] 160 [place] [address] Radiation Oncologist Radiation Oncology 06/22/24 James Robert DO [address] [place] [address] MEDICAL ONCOLOGY, [address] [address] Medical Oncologist/Labor Relations Officer Hematology and Oncology 07/12/24 documented as of this encounter
--- OUTSIDE RECORDS SUMMARY | 2024-09-30 09:19 | XMS_ITS | Encounter Summary ---
Author Organization [facility] Healthcare Address [address] [place] [address] Care Team Providers Care Ground Layer Name Role Phone Corey Angel MD Primary Care Provider Clem Thomson MD Unavailable Harman Morales MD Unavailable [phone] James Robert DO Unavailable [phone] Reason for Visit * Reason Comments OTV Encounter Details Date Type Department Care Team (Late st Contact Info) Description 09/07/2024 OTV [facility] Medical Office Building 2 Radiation Oncology [address] [place] [address] Harman Morales MD [address] [place] [address] Social History Tobacco Use Types Packs/Day [...] on file Legal Sex Male 2:49 AM SHEEP CLIPPER Gender Identity Male 05/22/2018 10:57 AM CDT Sexual Orientation Straight 11/03/2020 7: 01 PM SHEEP CLIPPER Occupation Industry Job Start Date Job End Date working Not on file Not on file Not on file documented as of this encounter Last Filed Vital Signs Vital Sign Reading Time Taken Comments Blood Pressure 138/94 09/07/2024 1:27 PM SHEEP CLIPPER Pulse 57 09/07/2024 1:27 PM SHEEP CLIPPER Temperature - - Respiratory Rate - - Oxygen Saturation 98% 09/07/2024 1:27 PM SHEEP CLIPPER Inhaled Oxygen Concentration - - Weight 119.7 kg (264 lb) 09/07/2024 1:27 PM SHEEP CLIPPER Height - - Body Mass Index 37.34 08/09/2024 3:04 PM SHEEP CLIPPER documented in this encounter Progress Notes * Harman Morales MD - 09/07/2024 1:27 PM CST PATIENT NAME: Clem Capellan DATE OF : 1950 TREATING PHYSICIAN:Harman Morales MD DATE OF SERVICE: 09/07/2024 RADIATION ONCOLOGY ON TREATMENT VISIT NOTE DIAGNOSIS:: Cancer Staging Prostate cancer (HCC) Staging form: Prostate, AJCC 8th Edition - Clinical stage from 06/28/2024: Stage IIIB (cT3b, cN0, cM0, PSA: 9.1, Grade Group: 2) - Signed by Harman Morales MD on 06/28/2024 TREATMENT: Radiation Treatments Active Plans PROSTATE_LNS Most recent treatment: Dose planned: 250 cGy (fraction 3 on 09/07/2024) Total: Dose planned: 7,000 cGy Elapsed Days: 2 Reference Points PTV_7000 Most recent treatment: Dose given: 250 cGy (on 09/07/2024) Total: Dose given: 750 cGy Elapsed Days: 2 Radiation Treatments No historical radiation treatments to show. SUBJECTIVE: The patient states that he is doing well. Today he has no complaints. EXAM: BP 138/94 Pulse 57 Wt 119.7 kg (264 lb) SpO2 98% BMI 37.34 kg/m?? Pain Score and Location 09/07/24 1327 PainSc: 0-No pain No acute distress. No skin changes. Urinary tract effects: 0 - None Gastrointestinal effects: 0 - None Consitutional effects: 0 - None ASSESSMENT: No side effects PLAN: Continue with treatment RAD ONC PAIN PLAN: The patient is not currently having any pain that requires changes in pain management. P CLIPPER documented in this encounter Plan of Treatment Not on file documented as of this encounter Visit Diagnoses Not on filedocumented in this encounter Care Teams Ground Layer Relationship Specialty Start Date End Date Corey Angel MD 6812 [facility] [address] [place] [address] PCP - General Internal Medicine 06/18/21 Clem Thomson MD [address] [place] [address] Referring Physician Urology 06/14/24 Harman Morales MD [address] [place] [address] 160 [place] [address] Radiation Oncologist Radiation Oncology 06/22/24 James Robert DO [address] [place] [address] MEDICAL ONCOLOGY, [facility] 180 [place] [address] Medical Oncologist/Middle Stitcher Hematology and Oncology 07/12/24 documented as of this encounter
--- OUTSIDE RECORDS SUMMARY | 2024-09-30 09:19 | XMS_ITS | Encounter Summary ---
Author Organization [facility] Healthcare Address [address] [place] [address] Care Team Providers Care Hedge Fund Accountant Name Role Phone Corey Angel MD Primary Care Provider [phone] Clem Thomson MD Unavailable Harman Morales MD Unavailable [phone] James Robert DO Unavailable [phone] Encounter Details Date Type Department Care Team (Late st Contact Info) Description 09/13/2024 1:00 PM STATE WILDLIFE OFFICER Treatment [facility] Medical Office Building 2 Radiation Oncology [address] [place] [address] Social History Tobacco Use Types Packs/Day [...] on file Legal Sex Male 2:49 AM STATE WILDLIFE OFFICER Gender Identity Male 05/22/2018 10:57 AM CDT Sexual Orientation Straight 11/03/2020 7: 01 PM STATE WILDLIFE OFFICER Occupation Industry Job Start Date Job End Date working Not on file Not on file Not on file documented as of this encounter Plan of Treatment Not on file documented as of this encounter Visit Diagnoses Not on filedocumented in this encounter Care Teams Hedge Fund Accountant Relationship Specialty Start Date End Date Corey Angel MD 68[address] [facility] [address] [place] [address] PCP - General Internal Medicine 06/18/21 Clem Thomson MD 4921 [facility] 11C [facility] [address] Referring Physician Urology 06/14/24 Harman Morales MD [address] [place] [address] [address] [place] [address] Radiation Oncologist Radiation Oncology 06/22/24 James Robert DO [address] [place] [address] MEDICAL ONCOLOGY, [facility] [address] [place] [address] Medical Oncologist/Mandolin Repair Person Hematology and Oncology 07/12/24 documented as of this encounter
--- OUTSIDE RECORDS SUMMARY | 2024-09-30 09:19 | XMS_ITS | Encounter Summary ---
Author Organization [facility] Healthcare Address [address] [place] [address] Care Team Providers Care Call Center Support Representative Name Role Phone Corey Angel MD Primary Care Provider [phone] Clem Thomson MD Unavailable Harman Morales MD Unavailable [phone] James Robert DO Unavailable [phone] Reason for Visit * Reason Comments Nutrition Counseling Encounter Details Date Type Department Care Team (Latest Contact Info) Description 09/06/2024 1:15 PM ENERGY CONTROL OFFICER Clinical Support [facility] Medical Office Building 2 Radiation Oncology [address] [place] [address] Prostate cancer (HCC) (Primary Dx); Elevated PSA Social History Tobacco Use Types Packs/Day Years [...] on file Legal Sex Male 2:49 AM ENERGY CONTROL OFFICER Gender Identity Male 05/22/2018 10:57 AM CDT Sexual Orientation Straight 11/03/2020 7: 01 PM ENERGY CONTROL OFFICER Occupation Industry Job Start Date Job End Date working Not on file Not on file Not on file documented as of this encounter Progress Notes * Oneida Todd, RD - 09/06/2024 1:15 PM CST Oncology Nutrition Initial Assessment 73 y.o. male with (C61) Prostate cancer (HCC) (primary encounter diagnosis) (R97.20) Elevated PSA Weight: Wt Readings from Last 10 Encounters: 08/20/24 115.7 kg (255 lb) 08/09/24 116.4 kg (256 lb 9.6 oz) 06/28/24 116.6 kg (257 lb) 04/30/24 109.1 kg (240 lb 9.6 oz) 04/18/24 111.1 kg (245 lb) 12/02/23 111.1 kg (245 lb) 08/04/22 125.6 kg (277 lb) 06/18/21 122 kg (269 lb) 08/30/18 117.7 kg (259 lb 8 oz) 04/26/16 120.2 kg (264 lb 15.9 oz) Current BMI: 36.07 kg/m?? Abnormal [place] body weight: 74.1 kg (163 lb 7.5 oz) Adjusted ideal body weight: 90.8 kg (200 lb 1.3 oz) Estimated daily nutritional needs: Calories: 2518-6889 (20-25 kcal/kg IBW) Protein: 139g (1.2-1.5gm /kg IBW) Fluid: 75 Oz Current Outpatient Medications Medication Instructions abiraterone (ZYTIGA) 1,000 mg, oral, Daily, Take with a glass of water, on an empty stomach at least 1 hr before or 2 hrs after food. ascorbic acid (vitamin C) 1,000 mg tablet azelastine (ASTELIN) 137 mcg (0.1 %) nasal spray 1 spray, 2 times daily bee pollen 550 mg capsule 1 Dose, oral, 2 times daily, 1 tbs BID cholecalciferol (VITAMIN D-3) 600 Units, Every morning esomeprazole DR (NEXIUM) 20 mg, Daily before breakfast icosapent ethyL (VASCEPA) 2 g, 2 times daily LORazepam (ATIVAN) 0.5 mg, oral, Every 6 hours PRN metoprolol XL (TOPROL-XL) 12.5 mg, Every morning nitroglycerin (NITROSTAT) 0.4 mg, Every 5 min PRN predniSONE (DELTASONE) 5 mg, oral, 2 times daily, Take with food. rosuvastatin (CRESTOR) 20 mg, Nightly tamsulosin (FLOMAX) 0.4 mg, oral, Daily traZODone (DESYREL) 50 mg, Nightly Impression and Intervention: Nutrition Status: The patient is at risk for malnutrition but does not meet the ASPEN criteria for malnutrition. The patient is under the care of Dr. Morales and will receive radiation therapy for management of his prostate cancer. His weight has been stable the past month to 255#. Provided nutrition education to this patient in person today. His appetite is good and normal for him. He reports normal bowels since starting treatment. He has taken Mirilax and stool softeners.. Hehas Imodium AD. He would like to lose weight. Encouraged him to include extra protein in his diet while under treatment. Diarrhea management was discussed, and verbal suggestions were provided. Verbally provided him with diet guidelines for prostate patients. Weight management and exercise are encouraged. Provided estimated daily nutritional ne eds: Suggested the [employer] program at the [facility]. The patient was given my contact information and were encouraged to contact me with any nutritionally related questions or concerns during treatment. . Oneida Todd, MS, RDN, RADIOLOGY TECH, LD Oncology Drilling Manager and Registered Dietitian [facility] in [place], [place] [phone] [email or web address] GY CONTROL OFFICER documented in this encounter Plan of Treatment Not on file documented as of this encounter Visit Diagnoses Diagnosis Prostate cancer (HCC)- Primary Malignant neoplasm of prostate Elevated PSA Elevated prostate specific antigen (PSA) documented in this encounter Care Teams Call Center Support Representative Relationship Specialty Start Date End Date Corey Angel MD [address] [facility] [address] [place] [address] [place] [address] PCP - General Internal Medicine 06/18/21 Clem Thomson MD [address] [address] Referring Physician Urology 06/14/24 Harman Morales MD [address] [place] [id number] Radiation Oncologist Radiation Oncology 06/22/24 James Robert DO [address] [place] [address] MEDICAL ONCOLOGY, [address] [address] Medical Oncologist/Protector Plate Attacher Hematology and Oncology 07/12/24 documented as of this encounter
--- OUTSIDE RECORDS SUMMARY | 2024-09-30 09:20 | XMS_ITS | Encounter Summary ---
Author Organization [facility] Healthcare Address [address] [place] [address] Care Team Providers Care Sewing Machine Tester Name Role Phone Corey Angel MD Primary Care Provider [phone] Clem Thomson MD Unavailable Harman Morales MD Unavailable [phone] James Robert DO Unavailable [phone] Encounter Details Date Type Department Care Team (Latest Contact Info) Description 08/03/2024 11:38 AM FLEET MANAGER - 08/03/2024 11:59 PM FLEET MANAGER Hospital Encounter [address] [address] Prostate cancer (HCC) Discharge Disposition: Discharge to home or self care Social History Tobacco Use Types Packs/Day Years Used Date Smoking Tobacco: Never Smokeless Tobacco: Never Alcohol Use Standard Drinks/Week Comments No 0 (1 standard drink = 0.6 oz pur e alcohol) AUDIT-C Answer Date Recorded Q1: How often do you have a drink containing alcohol? Never 04/30/2024 Q2: How many drinks containi ng alcohol do you have on a typical day when you are drinking? Patient does not drink Q3: How often do you have si x or more drinks on one occasion? Never 04/30/2024 Personal Safety Answer Date Recorded Have you ever been in or are you currently in a harmful physical or emotional relationship or is someone making you feel afraid or unsafe? Denies 04/30/2024 Sex and Gender Information Value Date Recorded Sex Assigned at Not on file Legal Sex Male 2:49 AM FLEET MANAGER Gender Identity Male 05/22/2018 10:57 AM CDT Sexual Orientation Straight 11/03/2020 7: 01 PM FLEET MANAGER Occupation Industry Job Start Date Job End Date working Not on file Not on file Not on file documented as of this encounter Medications at Time of Discharge bee pollen 550 mg capsuleIndicatio ns:supplement/al lergies Take 1 Dose by mouth 2 (two) times a day 1 tbs BID cholecalciferol 400 unit capsuleIndicatio ns:supplement Take 600 Units by mouth every morning esomeprazole DR (NexIUM) 20 mg capsuleIndicatio ns:Treatment of Non-Bleeding Gastric Disorder,gerd Take 1 capsule (20 mg total) by mouth daily before breakfast icosapent ethyL (VASCEPA) 1 gram capsuleIndicatio ns:hypertriglyce ridemia Take 2 capsules (2 g total) by mouth 2 (two) times a day 05/23/2021 LORazepam (ATIVAN) 0.5 mg tablet Take 1 tablet (0.5 mg total) by mouth every 6 (six) hours as needed for anxiety (prior to MRI) 1 tablet 06/29/2024 metoprolol XL (TOPROL-XL) 25 mg extended release tabletIndication s:hypertension,A AA Take 0.5 tablets (12.5 mg total) by mouth every morning nitroglycerin (NITROSTAT) 0.4 mg SL tabletIndication s:aneursysm Place 1 tablet (0.4 mg total) under the tongue every 5 (five) minutes as needed for chest pain 04/29/2023 rosuvastatin (CRESTOR) 20 mg tabletIndication s:hyperlipidemia Take 1 tablet (20 mg total) by mouth nightly 04/21/2021 tamsulosin (FLOMAX) 0.4 mg extended release capsule Take 1 capsule (0.4 mg total) by mouth daily 30 capsule 11 04/20/2024 traZODone (DESYREL) 50 mg tablet Take 1 tablet (50 mg total) by mouth nightly 06/18/2024 LORazepam (ATIVAN) 0.5 mg tabletIndication s:anxiety Take 1 tablet (0.5 mg total) by mouth every 6 (six) hours as needed for anxiety 06/08/2023 4 documented as of this encounter Discharge Disposition Disposition Code Departure Means Destination Discharge to home or self care documented in this encounter Plan of Treatment Not on file documented as of this encounter Procedures Procedure Name Priority Date/Time Associated Diagnosis Comments URINALYSIS AND REFLEX TO MICROSCOPIC AND CULTURE Routine 08/03/2024 11:39 AM FLEET MANAGER Prostate cancer (HCC) documented in this encounter Results * Urinalysis reflex to microscopic and culture Urine, clean voided (08/03/2024 11:39 AM FLEET MANAGER) Color, ur Straw Yellow Clarity, ur Clear [...] tendency for uric acid stone formation. Source: [facility] ev-social Current Interpretive Data was last revised on [...] CH Urine, clean voided 08/03/2024 11:39 AM FLEET MANAGER 08/03/2024 3:00 PM FLEET MANAGER us Harman Morales MD LAB MICROBIOLOGY - GENERAL ORD ERABLES Final Result [facility] [address] [address] Department [place] [address] documented in this encounter Visit Diagnoses Diagnosis Prostate cancer (HCC) Malignant neoplasm of prostate documented in this encounter Care Teams Sewing Machine Tester Relationship Specialty Start Date End Date Corey Angel MD [address] INTERNAL MEDICINE [place], [place] [id number] PCP - General Internal Medicine 06/18/21 Clem Thomson MD 4921 [facility] 11C [place] [address] Referring Physician Urology 06/14/24 Harman Morales MD [facility]8 [facility] [address] [place], [place] [id number] Radiation Oncologist Radiation Oncology 06/22/24 James Robert DO 1418 [facility] MEDICAL ONCOLOGY, [facility] [address] [place], [place] [id number] Medical Oncologist/Tube Builder Airplane Hematology and Oncology 07/12/24 documented as of this encounter
--- OUTSIDE RECORDS SUMMARY | 2024-09-30 09:20 | XMS_ITS | Encounter Summary ---
Author Organization [facility] Healthcare Address [address] [place] [address] Care Team Providers Care Service Unit Operator Oil Well Name Role Phone Corey Angel MD Primary Care Provider [phone] Clem Thomson MD Unavailable Harman Morales MD Unavailable [phone] James Robert DO Unavailable [phone] Encounter Details Date Type Department Care Team (Late st Contact Info) Description 08/03/2024 11:15 AM FITTER MACHINIST Lab [facility] Medical Group Outpatient Lab at [address] [id number] Social History Tobacco Use Types Packs/Day Years [...] on file Legal Sex Male 2:49 AM FITTER MACHINIST Gender Identity Male 05/22/2018 10:57 AM CDT Sexual Orientation Straight 11/03/2020 7: 01 PM FITTER MACHINIST Occupation Industry Job Start Date Job End Date working Not on file Not on file Not on file documented as of this encounter Plan of Treatment Not on file documented as of this encounter Visit Diagnoses Not on filedocumented in this encounter Care Teams Service Unit Operator Oil Well Relationship Specialty Start Date End Date Corey Angel MD 6812 [facility] [address] [place] [address] PCP - General Internal Medicine 06/18/21 Clem Thomson MD 4921 [facility] 11C [facility] [place] [address] Referring Physician Urology 06/14/24 Harman Morales MD [address] [place] [address] 160 [place] [address] Radiation Oncologist Radiation Oncology 06/22/24 James Robert DO [address] [place] [address] MEDICAL ONCOLOGY, [facility] [address] [place] [address] Medical Oncologist/Chummer Hematology and Oncology 07/12/24 documented as of this encounter
--- OUTSIDE RECORDS SUMMARY | 2024-09-30 09:20 | XMS_ITS | Encounter Summary ---
Author Organization [facility] Healthcare Address [address] [place] [address] Care Team Providers Care Store Coordinator Name Role Phone Corey Angel MD Primary Care Provider [phone] Clem Thomson MD Unavailable Harman Morales MD Unavailable [phone] James Robert DO Unavailable [phone] Encounter Details Date Type Department Care Team (Late st Contact Info) Description 08/10/2024 Orders Only [facility] Medical Office Building 2 Radiation Oncology [address] [place] [id number] Taya Cartagena, MICAH Social History Tobacco Use Types Packs/Day Years [...] on file Legal Sex Male 2:49 AM ELEVATOR DISPATCHER Gender Identity Male 05/22/2018 10:57 AM CDT Sexual Orientation Straight 11/03/2020 7: 01 PM ELEVATOR DISPATCHER Occupation Industry Job Start Date Job End Date working Not on file Not on file Not on file documented as of this encounter Ordered Prescriptions Prescription Sig Dispense Quantity Refills Last Filled Start Date End Date ciprofloxacin (Cipro) 250 mg tablet 500 mg the night before the procedure then 250 mg twice a day for 4 days 10 tablet 08/10/2024 4 documented in this encounter Plan of Treatment Not on file documented as of this encounter Visit Diagnoses Not on filedocumented in this encounter Care Teams Store Coordinator Relationship Specialty Start Date End Date Corey Angel MD 6812 [facility] 162 [facility] 209 [place] [address] PCP - General Internal Medicine 06/18/21 Clem Thomson MD [address] [place] [address] Referring Physician Urology 06/14/24 Harman Morales MD [address] [place] [address] [address] [place] [address] Radiation Oncologist Radiation Oncology 06/22/24 James Robert DO [address] [place] [address] MEDICAL ONCOLOGY, [facility] [address] [place] [address] Medical Oncologist/Painter Mirror Hematology and Oncology 07/12/24 documented as of this encounter
--- OUTSIDE RECORDS SUMMARY | 2024-09-30 09:20 | XMS_ITS | Encounter Summary ---
Author Organization [facility] Healthcare Address [address] [place] [address] Care Team Providers Care Content Administrator Name Role Phone Corey Angel MD Primary Care Provider [phone] Clem Thomson MD Unavailable [phone] Harman Morales MD Unavailable [phone] James Robert DO Unavailable [phone] Reason for Visit * Radiation Therapy (Routine) - Authorized Specialty Diagnoses / Procedures Referred By Contac t Referred To Contact Radiation Oncology Diagnoses Malignant neoplasm of prostate (HCC) Harman Morales MD [address] [place] [address] Phone: tel: fax: [facility] Medical Office Building 2 Radiation Oncology [address] [place] [address] Phone: tel: fax: Referral ID Status Reason Start Date Expiration Date V isits Requested Visits Authorized [id number] Authorized 08/20/2024 11/20/2024 99 99 Encounter Details Date Type Department Care Team (Late st Contact Info) Description 08/20/2024 11:30 AM SUPERVISOR CLEANING AND ANNEALING Treatment [facility] Medical Office Building 2 Radiation On[address] [place], [place] [address] Harman Morales MD [address] [place] [address] Social History Tobacco Use Types Packs/Day Years [...] on file Legal Sex Male 2:49 AM SUPERVISOR CLEANING AND ANNEALING Gender Identity Male 05/22/2018 10:57 AM CDT Sexual Orientation Straight 11/03/2020 7: 01 PM SUPERVISOR CLEANING AND ANNEALING Occupation Industry Job Start Date Job End Date working Not on file Not on file Not on file documented as of this encounter Plan of Treatment Not on file documented as of this encounter Visit Diagnoses Not on filedocumented in this encounter Care Teams Content Administrator Relationship Specialty Start Date End Date Corey Angel MD [address] [place] [address] PCP - General Internal Medicine 06/18/21 Clem Thomson MD 4921 [facility] 11C [place] [address] Referring Physician Urology 06/14/24 Harman Morales MD [address] [address] Radiation Oncologist Radiation Oncology 06/22/24 James Robert DO 1418 [facility] MEDICAL ONCOLOGY, [facility] [address] [place] [address] Medical Oncologist/Power Barker Operator Hematology and Oncology 07/12/24 documented as of this encounter
--- OUTSIDE RECORDS SUMMARY | 2024-09-30 09:20 | XMS_ITS | Encounter Summary ---
Author Organization [facility] Healthcare Address [address] [place] [address] Care Team Providers Care Hub Bander Name Role Phone Corey Angel MD Primary Care Provider [phone] Clem Thomson MD Unavailable Harman Morales MD Unavailable [phone] James Robert DO Unavailable [phone] Encounter Details Date Type Department Care Team (Late st Contact Info) Description 08/13/2024 Telephone [facility] Medical Office Building 2 Radiation Oncology [address] [place] [address] Taya Cartagena, MICAH Social History Tobacco [...] on file Legal Sex Male 2:49 AM BAKERY WORKER CONVEYOR LINE Gender Identity Male 05/22/2018 10:57 AM CDT Sexual Orientation Straight 11/03/2020 7: 01 PM BAKERY WORKER CONVEYOR LINE Occupation Industry Job Start Date Job End Date working Not on file Not on file Not on file documented as of this encounter Miscellaneous Notes * Telephone Encounter - Taya Cartagena RN - 08/13/2024 2:33 PM BAKERY WORKER CONVEYOR LINE Returned patient's call regarding questions about upcoming procedure. I let him know his markers will be MRI compatible. I also confimred Fleets enema is a saline enema and can be found OTC. Remindedhim of prep for Tuesday's simulation as well. He verbalized understanding to all discussed. RY WORKER CONVEYOR LINE documented in this encounter Plan of Treatment Not on file documented as of this encounter Visit Diagnoses Not on filedocumented in this encounter Care Teams Hub Bander Relationship Specialty Start Date End Date Corey Angel MD [address] INTERNAL MEDICINE [place], [place] [id number] PCP - General Internal Medicine 06/18/21 Clem Thomson MD 4921 [facility] 11C [place] [address] Referring Physician Urology 06/14/24 Harman Morales MD [facility]8 [facility] [address] [place], [place] [address] Radiation Oncologist Radiation Oncology 06/22/24 James Robert DO 1418 [facility] IM MEDICAL ONCOLOGY, [address] [place], [place] [address] Medical Oncologist/Combat Systems Operator Mine Warfare Hematology and Oncology 07/12/24 documented as of this encounter
--- OUTSIDE RECORDS SUMMARY | 2024-09-30 09:20 | XMS_ITS | Encounter Summary ---
Author Organization [facility] Healthcare Address [address] [place] [address] Care Team Providers Care Tanyard Worker Name Role Phone Corey Angel MD Primary Care Provider Clem Thomson MD Unavailable Harman Morales MD Unavailable [phone] James Robert DO Unavailable [phone] Reason for Visit * Reason Comments Follow-up Encounter Details Date Type Department Care Team (Late st Contact Info) Description 08/20/2024 11:00 AM NUCLEAR POWERPLANT MECHANIC HELPER Office Visit [facility] Medical Office Building 2 Radiation Oncology [address] [place], [place] [address] Harman Morales MD [address] [place] [id number] Prostate cancer (HCC) (Primary Dx) Social History Tobacco Use Types Packs/Day Years [...] on file Legal Sex Male 2:49 AM NUCLEAR POWERPLANT MECHANIC HELPER Gender Identity Male 05/22/2018 10:57 AM CDT Sexual Orientation Straight 11/03/2020 7: 01 PM NUCLEAR POWERPLANT MECHANIC HELPER Occupation Industry Job Start Date Job End Date working Not on file Not on file Not on file documented as of this encounter Last Filed Vital Signs Vital Sign Reading Time Taken Comments Blood Pressure 158/96 08/20/2024 11:05 AM NUCLEAR POWERPLANT MECHANIC HELPER Pulse 64 08/20/2024 11:05 AM NUCLEAR POWERPLANT MECHANIC HELPER Temperature - - Respiratory Rate - - Oxygen Saturation 100% 08/20/2024 11:05 AM NUCLEAR POWERPLANT MECHANIC HELPER Inhaled Oxygen Concentration - - Weight 115.7 kg (255 lb) 08/20/2024 11:05 AM NUCLEAR POWERPLANT MECHANIC HELPER Height - - Body Mass Index 36.07 08/09/2024 3:04 PM NUCLEAR POWERPLANT MECHANIC HELPER documented in this encounter Progress Notes * Harman Morales MD - 08/20/2024 11:00 AM CST Radiation Oncologist: Harman Morales MD Primary Care Physician: Corey Angel MD Medical Oncologist: James Robert DO Surgeon: No care cylinder steamer to display Date of Service: 08/20/2024 RADIATION ONCOLOGY FOLLOW UP NOTE IDENTIFYING DATA: Cancer Staging Prostate cancer (HCC) Staging form: Prostate, AJCC 8th Edition - Clinical stage from 06/28/2024: Stage IIIB (cT3b, cN0, cM0, PSA: 9.1, Grade Group: 2) - Signed by Harman Morales MD on 06/28/2024 No radiation therapy to date INTERVAL HISTORY Clem Capellan returns for continued management of his prostate cancer; his last visit with us was last month. He has since had fiducial marker placement. He tolerated this without difficulty. Mr. Capellan denies any new difficulties. PAST MEDICAL, SURGICAL, FAMILY, AND SOCIAL HISTORY History Last Reviewed by Raffy Augustine on 08/09/2024 at 2:52 PM Sections Reviewed Medical, Family, Tobacco, Surgical, Drug Use, Sexual Activity, Social Documentation ALLERGIES: Allergies as of 08/20/2024 Reviewed by Dionicio Canela RN on 08/20/2024 No Known Allergies MEDICATIONS: Review Info User Date and Time DIONICIO CANELA RN [[id number]] 08/20/2024 11:01 AM REVIEW OF SYSTEM Except for the symptoms described above, the remainder of the review of systems is negative. Specifically, except as noted, when asked the patient expressed no complaints relative to constitutional (fever, weight loss), eyes, ears, nose, mouth, throat, neurologic, cardiovascular, pulmonary, breast,GI, , skin, musculoskeletal, endocrine, hematologic/lymphatic, or immunologic systems. PHYSICAL EXAMINATION: BP 158/96 Pulse 64 Wt 115.7 kg (255 lb) SpO2 100% BMI 36.07 kg/m?? Pain Score and Location 08/20/24 1105 PainSc: 0-No pain General: No acute distress. HEENT: Normocephalic, atraumatic. Oropharynx without thrush. Neck: Supple. Lymph: No cervical, supraclavicular adenopathy. Chest: Clear to auscultation. CV: Regular rate and rhythm. Abdomen: Soft, nontender. Extremities: No clubbing cyanosis or edema. MSK: Full range of motion. Neuro: No focal deficits. Skin: No concerning lesions. ECOG 0 DIAGNOSTIC REPORTS REVIEWED: Imaging: I personally reviewed the imaging and agree with reported findings as detailed in the HPI Laboratory/Pathology: I personally reviewed the laboratory and pathology values below: PSAs: 02/24/21 5.7 08/09/22 6.2 12/03/23 9.1 06/15/24 10.00 ASSESSMENT/PLAN: 73 y.o.male with high risk prostate ca with bilateral SV invasion Risks, side effects, logistics of treatments reviewed. He would like to proceed. CT simulation shortly. Treatment to start soon thereafter. RAD ONC PAIN PLAN: The patient is not currently having any pain that requires changes in pain management. DISEASE STATUS: Disease Status: Controlled New metachronous cancer?: No My total encounter time on 08/20/2024 was 15 minutes which was spent in the activities documented in the note. This includes time spent prior to the visit and after the visit in direct care of the patient. This time does not include time spent in any separately reportable services. Harman Morales MD EAR POWERPLANT MECHANIC HELPER documented in this encounter Nursing Notes * Dionicio Canela, RN - 08/20/2024 11:00 AM CST Oncology Education Educated: Who educated?: Patient Barriers to learning: No barriers identified Welcome binder given: Yes Topics addressed: Appointments, Contact info/When to call, Diarrhea, Fatigue, Oncology treatment information, and Support services and resources Learning Methods: Explanation and Handout Response to Learning: Verbalized understanding EAR POWERPLANT MECHANIC HELPER documented in this encounter Plan of Treatment Not on file documented as of this encounter Visit Diagnoses Diagnosis Prostate cancer (HCC)- Primary Malignant neoplasm of prostate documented in this encounter Care Teams Tanyard Worker Relationship Specialty Start Date End Date Corey Angel MD 6812 [facility] [address] [place] [address] PCP - General Internal Medicine 06/18/21 Clem Thomson MD [address] [place] [address] Referring Physician Urology 06/14/24 Harman Morales MD [facility]8 [facility] [address] [place] [address] Radiation Oncologist Radiation Oncology 06/22/24 James Robert DO 1418 [facility] MEDICAL ONCOLOGY, [facility] [address] [place] [address] Medical Oncologist/Dental Assistant Medical Assistant Hematology and Oncology 07/12/24 documented as of this encounter
--- OUTSIDE RECORDS SUMMARY | 2024-09-30 09:20 | XMS_ITS | Encounter Summary ---
Author Organization [facility] Address [address] [place] [address] Phone Care Team Providers Care Professor/Nurse Anesthetist Name Role Phone Corey Angel MD Primary Care Provider [phone] Clem Thomson MD Unavailable Harman Morales MD Unavailable [phone] James Robert DO Unavailable [phone] Reason for Visit * Reason Comments Consult * Consultation (Routine) - Authorized Specialty Diagnoses / Procedures Referred By Contjairo t Referred To Contact Oncology Diagnoses Prostate cancer (HCC) Harman Morales MD [address] [facility] [address] [place] [address] Phone: tel: fax: [facility] [address] [place] [address] [address] [place] [address] Phone: tel: fax: Referral ID Status Reason Start Date Expiration Date Visits Requested Visits Authorized [id number] Authorized Specialty Services Required 08/10/2025 99 99 Encounter Details Date Type Department Care Team (Late st Contact Info) Description 08/09/2024 2:30 PM TELEPHONE ORDER DISPATCHER Office Visit [facility] [address] [place] [address] [address] [place] [address] James Robert, DO [address] [place] [address] [id number] Prostate cancer (HCC) (Primary Dx) Social History [...] on file Legal Sex Male 2:49 AM TELEPHONE ORDER DISPATCHER Gender Identity Male 05/22/2018 10:57 AM CDT Sexual Orientation Straight 11/03/2020 7: 01 PM TELEPHONE ORDER DISPATCHER Occupation Industry Job Start Date Job End Date working Not on file Not on file Not on file documented as of this encounter Last Filed Vital Signs Vital Sign Reading Time Taken Comments Blood Pressure 124/90 08/09/2024 3:04 PM TELEPHONE ORDER DISPATCHER Pulse 71 08/09/2024 3:04 PM TELEPHONE ORDER DISPATCHER Temperature 36.2 ??C (97.2 ??F) 08/09/2024 3:04 PM CS T Respiratory Rate 18 08/09/2024 3:04 PM TELEPHONE ORDER DISPATCHER Oxygen Saturation 97% 08/09/2024 3:04 PM TELEPHONE ORDER DISPATCHER Inhaled Oxygen Concentration - - Weight 116.4 kg (256 lb 9.6 oz) 08/09/2024 3:04 PM TELEPHONE ORDER DISPATCHER no shoes Height 179.1 cm (5' 10.5 ) 08/09/2024 3:04 PM CS T Body Mass Index 36.3 08/09/2024 3:04 PM TELEPHONE ORDER DISPATCHER documented in this encounter Ordered Prescriptions Prescription Sig Dispense Quantity Refills Last Filled Start Date End Date abiraterone (ZYTIGA) 250 mg tabletIndications: Prostate cancer (HCC) Take 4 tablets (1,000 mg total) by mouth daily Take with a glass of water, on an empty stomach at least 1 hr before or 2 hrs after food. 120 tablet 5 08/10/2024 5 predniSONE (DELTASONE) 5 mg tabletIndications: Prostate cancer (HCC) Take 1 tablet (5 mg) by mouth 2 (two) times a day Take with food. 60 tablet 5 08/10/2024 4 documented in this encounter Plan of Treatment Scheduled Orders Name Type Priority Associated Diagnoses Orde r Schedule CBC with auto differential Lab Routine Prostate cancer (HCC) Expected: 10/25/2024, Expires: 08/09/2025 Comprehensive metabolic panel Lab Routine Prostate cancer (HCC) Expected: 10/25/2024, Expires: 08/09/2025 documented as of this encounter Visit Diagnoses Diagnosis Prostate cancer (HCC)- Primary Malignant neoplasm of prostate documented in this encounter Discontinued Medications Medication Sig Discontinue Reason Start Date End Da te LORazepam (ATIVAN) 0.5 mg tabletIndications:anxiet y Take 1 tablet (0.5 mg total) by mouth every 6 (six) hours as needed for anxiety Duplicate order 06/08/2023 08/09/2024 documented as of this encounter Historical Medications * This list may reflect changes made after this encounter. azelastine (ASTELIN) 137 mcg (0.1 %) nasal spray Administer 1 spray into each nostril 2 (two) times a day Use in each nostril as directed ascorbic acid (vitamin C) 1,000 mg tablet 08/07/2024 added in this encounter Orders Outpatient Referral Count Last Ordered Date Fir st Ordered Date AMB REFERRAL TO ONCOLOGY 1 08/09/2024 Appointment Requests Count Last Ordered Date Fi rst Ordered Date ONCBCN CLINIC APPOINTMENT REQUEST 1 024 ONCBCN LAB APPOINTMENT 1 08/09/2024 documented in this encounter Care Teams Professor/Nurse Anesthetist Relationship Specialty Start Date End Date Corey Angel MD [address] [facility] 209 INTERNAL MEDICINE [place], [place] [id number] PCP - General Internal Medicine 06/18/21 Clem Thomson MD [address] [place] [address] Referring Physician Urology 06/14/24 Harman Morales MD [facility]8 [facility] [address] [place], [place] [phone] Radiation Oncologist Radiation Oncology 06/22/24 James Robert DO 1418 [facility] MEDICAL ONCOLOGY, [facility] [address] [place] [address] Medical Oncologist/Project Management Director Hematology and Oncology 07/12/24 documented as of this encounter
--- OUTSIDE RECORDS SUMMARY | 2024-09-30 09:20 | XMS_ITS | Encounter Summary ---
Author Organization [facility] Healthcare Address [address] [place] [address] Care Team Providers Care Systems Accountant Name Role Phone Corey Angel MD Primary Care Provider [phone] Clem Thomson MD Unavailable [phone] Harman Morales MD Unavailable [phone] Reason for Visit * Reason Comments Injections * Episode Based Medications (Routine) - Authorized Specialty Diagnoses / Procedures Referred By Contac t Referred To Contact Diagnoses Prostate cancer (HCC) Harman Morales MD [address] [place] [address] Phone: tel: fax: [facility] Medical Office Building 2 Radiation Oncology [address] [place] [address] Phone: tel: fax: Referral ID Status Reason Start Date Expiration Date V isits Requested Visits Authorized [id number] Authorized 07/06/2024 08/05/2025 4 4 Encounter Details Date Type Department Care Team (Latest Contact Info) Description 07/11/2024 1:00 PM CDT Clinical Support [facility] Medical Office Building 2 Radiation Oncology [address] [place] [phone] Prostate cancer (HCC) (Primary Dx) Social History [...] on file Legal Sex Male 2:49 AM HAND ZIPPER TRIMMER Gender Identity Male 05/22/2018 10:57 AM CDT Sexual Orientation Straight 11/03/2020 7: 01 PM HAND ZIPPER TRIMMER Occupation Industry Job Start Date Job End Date working Not on file Not on file Not on file documented as of this encounter Plan of Treatment Not on file documented as of this encounter Visit Diagnoses Diagnosis Prostate cancer (HCC)- Primary Malignant neoplasm of prostate documented in this encounter Administered Medications Inactive Administered Medications - up to 3 most recent administrations Medication Order MAR Action Action Date Dose Rate Site leuprolide acetate (6 month) (ELIGARD) subcutaneous injection 45 mg 45 mg, subcutaneous, Once, On Tue07/11/24 at 1445, For 1 dose, For subcutaneous use only. Allow product to reach room temperature before using.Indications:Prostate cancer (HCC) Given 07/11/2024 2:02 PM CDT 45 mg Right Upper Arm documented in this encounter Orders Medications Ordered That Gumaro ht Not Have Been Administered Count Last Ordered Date First Ordered Date leuprolide acetate (6 month) (ELIGARD) subcutaneous injection 45 mg 1 07/11/2024 documented in this encounter Care Teams Systems Accountant Relationship Specialty Start Date End Date Corey Angel MD [address] [place] [address] PCP - General Internal Medicine 06/18/21 Clem Thomson MD [address] [place] [address] DIV SURG UROLOGY [place] [id number] Referring Physician Urology 06/14/24 Harman Morales MD [address] [place] [address] Radiation Oncologist Radiation Oncology 06/22/24 documented as of this encounter
--- OUTSIDE RECORDS SUMMARY | 2024-09-30 09:20 | XMS_ITS | Encounter Summary ---
Author Organization [facility] Healthcare Address [address] [place] [address] Care Team Providers Care Pharmacy Account Director Name Role Phone Corey Angel MD Primary Care Provider [phone] Clem Thomson MD Unavailable Harman Morales MD Unavailable [phone] James Robert DO Unavailable [phone] Encounter Details Date Type Department Care Team (Late st Contact Info) Description 08/03/2024 Orders Only [facility] Medical Office Building 2 Radiation Oncology [address] [place] [address] Taya Cartagena, MICAH Prostate cancer (HCC) (Primary Dx) Social History [...] on file Legal Sex Male 2:49 AM DESIGN EDITOR Gender Identity Male 05/22/2018 10:57 AM CDT Sexual Orientation Straight 11/03/2020 7: 01 PM DESIGN EDITOR Occupation Industry Job Start Date Job End Date working Not on file Not on file Not on file documented as of this encounter Miscellaneous Notes * Addendum Note - Aleaxndra Schreiber - 08/03/2024 11:37 AM CSTAddended by: ALEXANDRA SCHREIBER on: 08/03/2024 11:39 AM Modules accepted: Orders GN EDITOR documented in this encounter Plan of Treatment Not on file documented as of this encounter Results * Urinalysis reflex to microscopic and culture Urine, clean voided (08/03/2024 11:39 AM DESIGN EDITOR) Color, ur Straw Yellow Clarity, ur Clear [...] for uric acid stone formation. Source: [facility] Current Interpretive Data was last revised on [...] CH Urine, clean voided 08/03/2024 11:39 AM DESIGN EDITOR 08/03/2024 3:00 PM DESIGN EDITOR us Harman Morales MD LAB MICROBIOLOGY - GENERAL ORD ERABLES Final Result [facility] [address] Department [place] [address] documented in this encounter Visit Diagnoses Diagnosis Prostate cancer (HCC)- Primary Malignant neoplasm of prostate documented in this encounter Care Teams Pharmacy Account Director Relationship Specialty Start Date End Date Corey Angel MD [address] [place] [address] INTERNAL MEDICINE [place], [place] [phone] PCP - General Internal Medicine 06/18/21 Clem Thomson MD [address] [facility] [place] [address] [place] [address] Referring Physician Urology 06/14/24 Harman Morales MD [facility]8 [facility] [address] [place], [place] [phone] Radiation Oncologist Radiation Oncology 06/22/24 James Robert DO 14[address] [facility] MEDICAL ONCOLOGY, [facility] [address] [place] [address] Medical Oncologist/Lpn Rn Hospice Hematology and Oncology 07/12/24 documented as of this encounter
--- OUTSIDE RECORDS SUMMARY | 2024-09-30 09:20 | XMS_ITS | Encounter Summary ---
Author Organization [facility] Healthcare Address [address] [place] [address] Care Team Providers Care Fruit Canner Name Role Phone Corey Angel MD Primary Care Provider [phone] Clem Thomson MD Unavailable Harman Morales MD Unavailable [phone] James Robert DO Unavailable [phone] Encounter Details Date Type Department Care Team (Latest Contact Info) Description 08/17/2024 10:50 AM SCRIPT SUPERVISOR - 08/17/2024 11:59 PM [facility] Hospital Encounter [facility] Advanced Medicine Radiation Oncology [address] [facility] [place] [address] Eliezer Pérez MD [address] [facility] [address] [place] [address] Prostate cancer (HCC) (Primary Dx) Discharge Disposition: [...] on file Legal Sex Male 2:49 AM SCRIPT SUPERVISOR Gender Identity Male 05/22/2018 10:57 AM CDT Sexual Orientation Straight 11/03/2020 7: 01 PM SCRIPT SUPERVISOR Occupation Industry Job Start Date Job End Date working Not on file Not on file Not on file documented as of this encounter Last Filed Vital Signs Vital Sign Reading Time Taken Comments Blood Pressure 145/89 08/17/2024 12:20 PM SCRIPT SUPERVISOR Pulse 67 08/17/2024 12:20 PM SCRIPT SUPERVISOR Temperature - - Respiratory Rate 16 08/17/2024 12:20 PM SCRIPT SUPERVISOR Oxygen Saturation 97% 08/17/2024 12:20 PM SCRIPT SUPERVISOR Inhaled Oxygen Concentration - - Weight - - Height - - Body Mass Index - - documented in this encounter Discharge Instructions * Patient Instructions* Lexi Berrios RN - 08/17/2024 11:00 AM SCRIPT SUPERVISOR DIAGNOSIS: Prostate cancer PROCEDURE: Marker placement CONDITION ON DISCHARGE: [x] Stable ACTIVITY/DIET: [x] Rest today, increase activity tomorrow as tolerated. [x] Return to usual diet. [x] Do not drive or operate hazardous machinery for 24 hr. [x] Do not drink any alcoholic beverages for 24 hr. [x] Stay with a responsible adult. MEDICATIONS: [x] Continue prescribed medications. [x] Take [id number] medication for relief of pain or discomfort. WOUND CARE: Follow Dr. Pérez instructions. [x] Shower after 24 hr. SPECIAL INSTRUCTIONS: [x] No lifting over 10 lb. For 24 hours. FOLLOW-UP CARE: Notify your doctor for excessive bleeding from the wound, constant or increasing pain, fever over 100?? F, numbness, tingling or changes in the color of the extremity, difficulty breathing, difficulty urinating or any concerns. If you are unable to reach your doctor please call [facility] senior information developer at [phone]. The kennel operator will contact the resident physician news correspondent for the RADIATION ONCOLOGY department to assist you. PT SUPERVISOR documented in this encounter Medications at Time of Discharge abiraterone (ZYTIGA) 250 mg tabletIndication s:Prostate cancer (HCC) Take 4 tablets (1,000 mg total) by mouth daily Take with a glass of water, on an empty stomach at least 1 hr before or 2 hrs after food. 120 tablet 5 08/10/2024 ascorbic acid (vitamin C) 1,000 mg tablet 08/07/2024 azelastine (ASTELIN) 137 mcg (0.1 %) nasal spray Administer 1 spray into each nostril 2 (two) times a day Use in each nostril as directed bee pollen 550 mg capsuleIndicatio ns:supplement/al lergies [...] (12.5 mg total) by mouth every morning rosuvastatin (CRESTOR) 20 mg tabletIndication s:hyperlipidemia Take 1 tablet (20 mg total) by mouth nightly 04/21/2021 tamsulosin (FLOMAX) 0.4 mg extended release capsule Take 1 capsule (0.4 mg total) by mouth daily 30 capsule 11 04/20/2024 traZODone (DESYREL) 50 mg tablet Take 1 tablet (50 mg total) by mouth nightly 06/18/2024 cephalexin (KEFLEX) 500 mg capsuleIndicatio ns:Prostate cancer (HCC) Take 1 capsule (500 mg total) by mouth 2 (two) times a day for 5 days 10 capsule 08/17/2024 4 predniSONE (DELTASONE) 5 mg tabletIndication s:Prostate cancer (HCC) Take 1 tablet (5 mg) by mouth 2 (two) times a day Take with food. 60 tablet 5 08/10/2024 4 documented as of this encounter Ordered Prescriptions Prescription Sig Dispense Quantity Refills Last Filled Start Date End Date cephalexin (KEFLEX) 500 mg capsuleIndications :Prostate cancer (HCC) Take 1 capsule (500 mg total) by mouth 2 (two) times a day for 5 days 10 capsule 08/17/2024 4 documented in this encounter Discharge Disposition Disposition Code Departure Means Destination Discharge to home or self care documented in this encounter Progress Notes * Eliezer Pérez MD - 08/17/2024 11:00 AM CST ATTENDING PHYSICIAN: Harman Morales MD REFERRING PHYSICIAN: Patient Care Team: Clem Thomson MD as Referring Physician (Urology) DATE OF SERVICE: 08/17/2024 RADIATION ONCOLOGY PROCEDURE NOTE IDENTIFYING INFORMATION: Clem Capellan is a 73 y.o. 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 The procedure note below summarizes the his fiducial marker placement in preparation for radiotherapy. PREOPERATIVE DIAGNOSIS: Prostate Cancer POSTOPERATIVE DIAGNOSIS: Prostate Cancer NAME OF OPERATION: Prostate Fiducial Marker Placement. INDICATION FOR PROCEDURE: Prostate cancer to receive image guided radiation therapy. PROCEDURE: Patient was placed in the dorsal lithotomy position. His perineum was prepped and draped in the usual sterile fashion. The scrotum was elevated out of the perineal field with sterile drapes. Then, 2%lidocaine was instilled into his right and left perineum, 10 mL on each side. A catheter was then inserted into the rectum. The transrectal ultrasound probe was then placed in the patient's rectum, positioned to the midline of the prostate fossa. The position of the probe was fixed with the prostate ultrasound stabilization stepping device. Subsequently, 10 mL of lidocaine was injected into the prostate fossa base using a long spinal needle 5mL on the left and 5 mL on the right. Three markers were then inserted into the prostat (right and left base, right apex). The entire procedure was completed under both ultrasound guidance. At the end of the procedure, the patient was discharged home in good condition. PLAN: The patient will proceed with CT simulation for radiotherapy planning. PT SUPERVISOR documented in this encounter Nursing Notes * Lexi Berrios RN - 08/17/2024 11:00 AM CST Patient admitted to brachytherapy for prostate marker placement. Identified by name, , and photo. Prep completed per patient report including starting antibiotic and completion of enema. Patient reports not being on blood thinners. Discussed procedure and discharge instructions with patient and patient verbalized understanding. Patient given a copy of discharge instructions. Patient voiced concerns with Cipro medication due to previous health conditions, Dr. Pérez made aware and plan to start Keflex tomorrow. VSS. IV placed in Right AC. Patient administered 0.5mg IV Dilaudid and 0.5mg IV Ativan. Lidocaine gel 2% instilled into the rectum. Dr. Pérez to perform procedure. Pt tolerated procedure without incident. Discharge instructions reviewed. VSS. Pt discharged to home via ambulatory. PT SUPERVISOR PT SUPERVISOR documented in this encounter Miscellaneous Notes * Addendum Note - Lexi Berrios RN - 08/17/2024 11:00 AM CSTEncounter addended by: Lexi Berrios RN on: 08/17/2024 12:50 PM Actions taken: Clinical Note Signed PT SUPERVISOR documented in this encounter Plan of Treatment Not on file documented as of this encounter Visit Diagnoses Diagnosis Prostate cancer (HCC)- Primary Malignant neoplasm of prostate documented in this encounter Administered Medications Inactive Administered Medications - up to 3 most recent administrations Medication Order MAR Action Action Date Dose Rate Site HYDROmorphone (DILAUDID) injection 0.5 mg 0.5 mg, intravenous, Administer over 2 Minutes, Once, On Tue08/17/24 at 1145, For 1 dose Given 08/17/2024 11:30 AM SCRIPT SUPERVISOR 0.5 mg lidocaine (GLYDO) 2 % jelly 220 mg 220 mg (11 mL), topical, Once, On Tue08/17/24 at 1145, For 1 dose Given 08/17/2024 11:30 AM SCRIPT SUPERVISOR 220 mg LORazepam (ATIVAN) 0.5 mg in sterile water (further dilution required) injection 0.5 mg, intravenous, Once, On Tue08/17/24 at 1145, For 1 dose, Withdraw ordered dose amount then dilute with equal volume of sterile water for injection. Administer total volume to patient. Do not exceed a rate of 2 mg/minute. Given 08/17/2024 11:31 AM SCRIPT SUPERVISOR 0.5 mg documented in this encounter Discontinued Medications Medication Sig Discontinue Reason Start Date End Da te ciprofloxacin (Cipro) 250 mg tablet 500 mg the night before the procedure then 250 mg twice a day for 4 days Alternate therapy 08/10/2024 08/17/2024 documented as of this encounter Care Teams Fruit Canner Relationship Specialty Start Date End Date Corey Angel MD 6812 [facility] [address] [place] [address] INTERNAL MEDICINE [place], [place] [phone] PCP - General Internal Medicine 06/18/21 Clem Thomson MD [address] [place] [address] Referring Physician Urology 06/14/24 Harman Morales MD [address] [place] [address] [address] [place], [place] [id number] Radiation Oncologist Radiation Oncology 06/22/24 James Robert DO [address] [place] [address] IM MEDICAL ONCOLOGY, [facility] [address] [place], [place] [phone] Medical Oncologist/Bricklayer Tender Hematology and Oncology 07/12/24 documented as of this encounter
--- OUTSIDE RECORDS SUMMARY | 2024-09-30 09:21 | XMS_ITS | Encounter Summary ---
Author Organization [facility] Healthcare Address [address] [place] [address] Care Team Providers Care Push Connector Assembler Name Role Phone Corey Angel MD Primary Care Provider [phone] Johnson Falcon MD Unavailable Clem Thomson MD Unavailable Encounter Details Date Type Department Care Team (Latest Contact Info) Description 06/15/2024 3:15 PM CDT - 06/15/2024 11:59 PM CDT Hospital Encounter [facility] [address] [place] [address] Prostate cancer (HCC) Discharge Disposition: Discharge to [...] on file Legal Sex Male 2:49 AM CODE NUMBER STAMPER Gender Identity Male 05/22/2018 10:57 AM CDT Sexual Orientation Straight 11/03/2020 7: 01 PM CODE NUMBER STAMPER Occupation Industry Job Start Date Job End [...] mouth 2 (two) times a day 05/23/2021 metoprolol XL (TOPROL-XL) 25 mg extended release [...] by mouth daily 30 capsule 11 04/20/2024 LORazepam (ATIVAN) 0.5 mg tabletIndication s:anxiety Take 1 tablet (0.5 mg total) by mouth every 6 (six) hours as needed for anxiety 06/08/2023 documented as of this encounter Discharge Disposition Disposition Code Departure Means Destination Discharge to home or self care documented in this encounter Plan of Treatment Not on file documented as of this encounter Procedures Procedure Name Priority Date/Time Associated Diagnosis Comments EGFR Routine 06/15/2024 3:04 PM CDT Prostate cancer (HCC) DIFFERENTIAL AUTO Routine 06/15/2024 3:0 4 PM CDT Prostate cancer (HCC) CBC WITH AUTO DIFFERENTIAL Routine 06/15/2024 3:04 PM CDT Prostate cancer (HCC) TOTAL TESTOSTERONE Routine 06/15/2024 3: 04 PM CDT Prostate cancer (HCC) PSA DIAGNOSTIC Routine 06/15/2024 3:04 PM CDT Prostate cancer (HCC) COMPREHENSIVE METABOLIC PANEL Routine 06/15/2024 3:04 PM CDT Prostate cancer (HCC) documented in this encounter Results * eGFR (06/15/2024 3:04 PM CDT) eGFR >90 >=60 mL/min/1. 73 m2 Comment: Interpretive Data Reference Interval Normal ?>/= 90 mL/min/1.73m2 Mildly decreased* ? 60 - 89 mL/min/1.73m2 Mildly to moderately decreased ?45 - 59 mL/min/1.73m2 Moderately to severely decreased ??30 - 44 mL/min/1.73m2 Severely decreased ?15 - 29 mL/min/1.73m2 Kidney Failure ?< 15 ??mL/min/1.73m2 *Relative to young adult level Estimated glomerular filtration rate is determined by the 2020 CKD-EPI equation recommended by the National Kid[employer] (A Unifying Approach to GFR Estimation: Recommendations of the NKF-ASK Task Force on Reassessing the Inclusion of Race in Diagnosing Kidney Disease, JASN 2020). The CKD-EPI equation should not be used for patients with unstable renal function and has not been validated in children and those over 70. Current interpretive data was last reviewed 2021. Blood 06/15/2024 3:04 PM CDT 06/15/2024 8:31 PM CDT Johnson Falcon MD LAB BLOOD ORDERABLES Final Result [facility] [address] [place] [address] * (ABNORMAL) Differential, auto (06/15/2024 3:04 PM CDT) Neutrophil abs 4.0 1.5 - 6.5 K/cumm Imm gran abs 0.0 0.0 - 0.1 K/cumm [facility] Lymphocyte abs 1.4 0.8 - 3.3 K/cumm [facility] Monocyte abs 1.0(H) 0.2 - 0.8 K/cumm [facility] Eosinophil abs 0.3 0.0 - 0.5 K/cumm [facility] Basophil abs 0.1 0.0 - 0.1 K/cumm [facility] Neutrophil pct 58.1 % [facility] Comment: Interpretive Data Percent cell count reference ranges are not reported, since discordance with absolute values may lead to misinterpretation of CBC data. Current Interpretive Data was last revised on 2018. Imm gran pct 0.3 % [facility] Comment: Interpretive Data Percent cell count reference ranges are not reported, since discordance with absolute values may lead to misinterpretation of CBC data. Current Interpretive Data was last revised on 2018. Lymphocyte pct 20.8 % [facility] Comment: Interpretive Data Percent cell count reference ranges are not reported, since discordance with absolute values may lead to misinterpretation of CBC data. Current Interpretive Data was last revised on 2018. Monocyte pct 15.1 % [facility] Comment: Interpretive Data Percent cell count reference ranges are not reported, since discordance with absolute values may lead to misinterpretation of CBC data. Current Interpretive Data was last revised on 2018. Eosinophil pct 5.0 % [facility] Comment: Interpretive Data Percent cell count reference ranges are not reported, since discordance with absolute values may lead to misinterpretation of CBC data. Current Interpretive Data was last revised on 2018. Basophil pct 0.7 % [facility] Comment: Interpretive Data Percent cell count reference ranges are not reported, since discordance with absolute values may lead to misinterpretation of CBC data. Current Interpretive Data was last revised on 2018. Blood 06/15/2024 3:04 PM CDT 06/15/2024 8:15 PM CDT Johnson Falcon MD LAB BLOOD ORDERABLES Final Result [facility] [address] [place] [address] * (ABNORMAL) Comprehensive metabolic panel (06/15/2024 3:04 PM CDT) Sodium 140 135 - 145 mmol/L Potassium, pl 3.9 3.3 - 4.9 mmol/L [facility] Chloride 105 97 - 110 mmol/L [facility] CO2 22 22 - 32 mmol/L [facility] Anion gap 13 2 - 15 mmol/L [facility] BUN 9 6 - 25 mg/dL [facility] Creatinine 0.75(L) 0.80 - 1.30 mg/dL [facility] Glucose 99 70 - 199 mg/dL [facility] Comment: Interpretive Data Fasting glucose >/= 126 mg/dl is diagnostic for diabetes. ?? Fasting is defined as no caloric intake for at least 8 hours. Fasting glucose between 100 mg/dl to 125 mg/dl is diagnostic of prediabetes. In a patient with classic symptoms of hyperglycemia or hyperglycemic crisis, a random glucose >/= 200 mg/dl is diagnostic for diabetes. In the absence of unequivocal hyperglycemia, results should be confirmed by repeat testing. The classification and Diagnosis of Diabetes Diabetes Care 2022; 46: S19-S40. Current interpretive data was last revised 2022. Calcium 9.3 8.5 - 10.3 mg/dL [facility] Bilirubin, total 0.5 0.1 - 1.2 mg/dL [facility] Protein, pl 7.7 6.5 - 8.5 g/dL [facility] Albumin 4.1 3.5 - 5.0 g/dL [facility] Alk phos 103 40 - 130 Units/L [facility] ALT 15 7 - 55 Units/L [facility] AST 26 10 - 50 Units/L [facility] Blood 06/15/2024 3:04 PM CDT 06/15/2024 8:15 PM CDT Johnson Falcon MD LAB BLOOD ORDERABLES Final Result [facility] [address] [place] [address] * (ABNORMAL) CBC with auto differential (06/15/2024 3:04 PM CDT) Pathologist [facility] WBC 6.8 3.8 - 9.9 K/cumm Hgb 13.3 13.0 - 17.5 g/dL [facility] Hct 41.6 38.9 - 50.3 % [facility] Plt 191 150 - 400 K/cumm [facility] MPV 11.8 9.1 - 12.3 fL [facility] RBC 4.58 4.30 - 5.80 M/cumm [facility] MCV 90.8 81.3 - 96.4 fL [facility] MCH 29.0 27.1 - 33.3 pg [facility] MCHC 32.0(L) 32.3 - 35.7 g/dL [facility] RDW CV 13.2 11.1 - 14.9 % [facility] RDW SD 43.8 35.7 - 48.1 fL [facility] NRBC abs 0.00 0.00 - 0.01 K/cumm [facility] Blood 06/15/2024 3:04 PM CDT 06/15/2024 8:15 PM CDT Johnson Falcon MD LAB BLOOD ORDERABLES Final Result Performing Organization Address City/[facility]/ZIP Co de Phone Number [facility] [address] [place] [address] * (ABNORMAL) Total testosterone (06/15/2024 3:04 PM CDT) Testosterone 101(L) 193 - 740 ng/dL Blood 06/15/2024 3:04 PM CDT 06/15/2024 8:15 PM CDT Johnson Falcon MD LAB BLOOD ORDERABLES Final Result Performing Organization Address [facility] Phone Number [facility] [address] Department [place] [address] * (ABNORMAL) PSA diagnostic (06/15/2024 3:04 PM CDT) Pathologist [facility] PSA-Total 10.00(H) <=6.20 ng/mL Comment: Interpretive Data [...] Falcon MD LAB BLOOD ORDERABLES Final Result [facility] [address] [place] [address] documented in this encounter Visit Diagnoses Diagnosis Prostate cancer (HCC) Malignant neoplasm of prostate documented in this encounter Care Teams Push Connector Assembler Relationship Specialty Start Date End Date Corey Angel MD [address] [employer] [place], [place] [id number] PCP - General Internal Medicine 06/18/21 Jhonson Falcon MD [address] [facility] [address] [place] [address] Radiation Oncologist Radiation Oncology 06/14/24 Clem Thomson MD [address] [facility] [address] [place] [address] Referring Physician Urology 06/14/24 documented as of this encounter
--- OUTSIDE RECORDS SUMMARY | 2024-09-30 09:21 | XMS_ITS | Encounter Summary ---
Author Organization [facility] Healthcare Address [address] [place] [address] Care Team Providers Care Manager Environmental Health And Safety Name Role Phone Corey Angel MD Primary Care Provider [phone] Reason for Visit * Auth/Cert (Routine) Specialty Diagnoses / Procedures Referred By Contac t Referred To Contact Diagnoses Elevated PSA Elevated PSA [R97.20] Procedures NE BX PROSTATE STRTCTC SATURATION SAMPLING IMG GID CHG US GUIDANCE NEEDLE PLACEMENT IMG S&I TRANSPERINEAL EXACT VU GUIDED PROSTATE BIOPSY BIOPSY PROSTATE - ULTRASOUND Referral ID Status Reason Start Date Expiration Date Visits Re quested Visits Authorized [id number] 1 1 Encounter Details Date Type Department Care Team (Late st Contact Info) Description 04/30/2024 9:31 AM CDT - 04/30/2024 12:40 PM CDT Hospital Encounter [facility] Operating Room [address] [place] [address] Nallely Thomson MD [address] [facility] [id number] [place] [address] Elevated PSA Discharge Disposition: Discharge to home or self [...] on file Legal Sex Male 2:49 AM [employer]AX POT [employer] Gender Identity Male 05/22/2018 10:57 AM CDT Sexual Orientation Straight 11/03/2020 7: 01 PM [employer] Occupation Industry Job Start Date Job End Date working Not on file Not on file Not on file documented as of this encounter Last Filed Vital Signs Vital Sign Reading Time Taken Comments Blood Pressure 137/80 04/30/2024 12:10 PM CDT Pulse 83 04/30/2024 12:15 PM CDT Temperature 35.6 ??C (96.1 ??F) 04/30/2024 1 2:15 PM CDT Respiratory Rate 16 04/30/2024 12:1 5 PM CDT Oxygen Saturation 98% 04/30/2024 12: 15 PM CDT Inhaled Oxygen Concentration - - Weight 109.1 kg (240 lb 9.6 oz) 04/30/2024 9:36 AM CDT Height 182.9 cm (6') 04/30/2024 9:36 AM CDT Body Mass Index 32.63 04/30/2024 9:36 AM CDT documented in this encounter Discharge Instructions * Discharge Instructions* Marissa Hirsch RN - 04/30/2024 10:01 AM CDT Discharge Instructions: Surgery performed: Transperineal prostate biopsy New medications: - Acetaminophen and ibuprofen as needed for pain; take this scheduled for the next 72 hours, then afterwards as needed - Docusate/miralax as needed for constipation, available [id number] Pain Control: - Start by applying ice packs or heating pads and using over the counter medications such as acetaminophen (Tylenol) or ibuprofen (Advil or Motrin) unless otherwise specified by your doctor. - As you recover, your pain will decrease and you will need less pain medication. You should only take pain medication if you are in pain. Diet: -Resume your normal diet. Activity: - Walking is encouraged. Climbing stairs is OK. As part of your prostate biopsy procedure, a needle was inserted into the skin between the anus andscrotum. In order to promote healing: - Do NOT ride bicycles, ride horses or motorcycles, or engage in other activities that put excessive pressure on the perineum for 3 days. - Avoid straining to urinate or have a bowel movement. Take stool softeners as necessary to help with constipation. Contact your doctor if: - You have a fever higher than 101 F (38.3 C). - You have nausea, vomiting or diarrhea. - Your pain medicine is not helping your pain. - You feel dizzy, very tired or like you may faint. - You are unable to urinate. - You have large blood clots in your urine. (Small amounts of blood-tinged urine and a few small clots are normal, especially after physical activity.) Tuesday through Tuesday, 8 AM to 5:00 PM: Please call the Urology office at [phone] with any questions or concerns and ask for a member of your doctor's team. For urgent matters after 5:00 PM during the week or on weekends or holidays, call [phone] and ask to have the Urology Vice President Supply Chain Physician paged for you. Follow up: Dr. Thomson will call you with the pathology results. You have received anesthesia, therefore, for the next 24 hours and/or while taking narcotic pain medication; -Do NOT drive a vehicle -Do NOT drink alcohol -Do NOT make important personal or business decisions or sign legal documents. Examples of narcotic pain medication include Percocet, Oxycontin, [place], Hydrocodone, and Oxycodone. FAQs (frequently asked questions) about Surgical Site Infections What is a Surgical Site Infection (SSI)? A surgical site infection is and infection that occurs after surgery in the part of the body where the surgery took place. Most patients who have surgery do not develop an infection. However, infections develop in about 1 to 3 out of every 100 patients who have surgery. Some of the common symptoms fo a surgical site infection are: Redness and pain around the area where you had surgery Drainage of cloudy fluid from your surgical wound Fever Can SSIs be treated? Yes. Most surgical site infections can be treated with antibiotics. The antibiotic given to you depends on the bacteria (germs) causing the infection. Sometimes patients with SSIs causing the infection. Sometimes patients with SSIs also need another surgery to treat the infection. What are some of the things that hospitals are doing to prevent SSIs? To prevent SSIs, doctors, nurses, and other healthcare providers: Clean their hands and arms up to their elbows with an antiseptic agent just before the surgery. Clean their hands with soap and water or an alcohol-based hand rub before and after caring for eachpatient. May remove some of your hair immediately before your surgery using electric clippers if the hair isin the same area where the procedure will occur. They should not shave you with a razor. Wear special hair covers, masks, gowns, and gloves during surgery to keep the surgery area clean. Give you antibiotics before your surgery starts. In most cases, you should get antibiotics within 60 minutes before the surgery starts and the antibiotics should be stopped within 24 hours after surgery. Clean the skin at the site of your surgery with a special soap that kills germs. What can I do to help prevent SSIs? Before your surgery: Tell your doctor about other medical problems you may have. Health problems such as allergies, diabetes, and obesity could affect your surgery and your treatment. Quit smoking. Patients who smoke get more infections. Talk to your doctor about how you can quit before your surgery. Do not shave near where you will have surgery. Shaving with a razor can irritate your skin and makeit easier to develop an infection. At the time of your surgery: Speak up if someone tries to shave you with a razor before surgery. Ask why you need to be shaved and talk with your surgeon if you have any concerns. Ask if you will get antibiotics before surgery. After your surgery: Make sure that your healthcare providers clean their hands before examining you, either with soap and water or an alcohol-based hand rub. If you do not see you providers clean their hands, please ask them to do so. Family and friends who visit you should not touch the surgical wound or dressings. Family and friends should clean their hands with soap and water or an alcohol- based hand rub beforeand after visiting You. If you do not see them clean their hands, ask them to clean their hands. What do I need to do when I go home from the hospital? Before you go home, your doctor or nurse should explain everything you need to know about taking care of your wound. Make sure you understand how to care for your wound before you leave the hospital. Always clean your hands before and after caring for your wound. Before you go home, make sure you know who to contact if you have questions or problems after you get home. If you have any symptoms of an infection, such as a redness and pain at the surgery site, drainage,or fever, call your doctor immediately. If you have additional questions, please ask your doctor or nurse. Safety Tips for Preventing Falls at Home Falls happen at home for many reasons. Here are several things that are known to add to your risk of falling: Poor vision or hearing History of falls Use of an assistive device, such as a cane or walker Poor nutrition Certain medications Multiple medications Being older than 65 years of age Conditions in the home, such as slippery floors, loose rugs, cords on the floor If you answer ???yes?? to any of the following questions, please consider discussing your risk of falling with your primary care practitioner: Have you fallen in the last year? Do you feel unsteady when standing or walking? Do you have a fear of falling? If your primary care practitioner recommends physical therapy, we are available to assist: [facility]: [facility] [phone] [place] [phone] [facility] [phone] How are some things that you can do that will lower your risk for falls at home: Arrange furniture to prevent tripping or bumping into it. Keep a light on in the bedroom & bathroom to help you see at night. Have your doctor or pharmacist review your medications. Remove things that you can trip over like phone cords, rugs & footstools. Wear sturdy non-skid slippers or shoes with flat or low heels Use handrails when going up & down stairs. Take one step at a time. Begin a regular exercise program When getting up, sit on the edge of the bed/chair for a few minutes before standing. Sit & stand up slowly. Avoid tilting your head back. Watch out for sidewalks & curbs that are not even. Replace worn walker, cane & crutch tips. Disclaimer: This material provides general information only. It should not be used in place of the advice, instructions, or treatment given by your doctor or other health point of care specialist. documented in this encounter Medications at Time [...] Discharge Disposition Disposition Code Departure Means Destination Comment s Discharge to home or self care Car documented in this encounter H&P Notes * Nallely Thomson MD - 04/30/2024 9:47 AM CDT I have reviewed the H&P, examined the patient, and endorse the findings as written. Plan of Care : Based on the above findings, I consider Nallely Mejia to be an acceptable risk for : Procedure(s): TRANSPERINEAL EXACT VU GUIDED PROSTATE BIOPSY BIOPSY PROSTATE - ULTRASOUND Source Note - Gianna Mckenzie NP - 04/26/2024 11:45 AM CDT Images from the original note were not included. Center for Preoperative Assessment and Planning Preoperative Evaluation Record Evaluation type/location: TPAP from [facility] Date: 04/26/24 NOTE: This note represents a preoperative evaluation initiated via telephone interview. NO PHYSICALEXAM was performed at the time of initial assessment. A physical exam may be added to this note anddocumented below. Anesthesia Evaluation Nallely Mejia is a 73 y.o. male TRANSPERINEAL EXACT VU GUIDED PROSTATE BIOPSY (Perineum) BIOPSY PROSTATE - ULTRASOUND (Perineum) Pre-Op Diagnosis Codes: * Elevated PSA [R97.20] HISTORY HPI 73 y.o. male with history of CAD (per CT), aortic aneurysm, fatty liver, GERD, hiatal hernia, anemia, and elevated PSA who is being evaluated prior to undergoing transperineal prostate biopsy Past Medical History Information obtained from: patient and chart. Information obtained during: Telephone Visit NOTE: This note represents a preoperative evaluation initiated via virtual (video or telephone) interview. NO PHYSICAL EXAM was performed at the time of initial assessment. A physical exam may be added to this note and documented below. Neurological Pertinent negatives: seizures; neuromuscular disease; CVA/stroke and TIA Cardiovascular + CAD (Total calcium score of 559; between 50 and 75% of similar patients have equal or less coronary artery calcium.) + PAD/Aorta disease (06/2023 CTA: fusiform aneurysmal aortic root and ascending, without change from 2020. Aortic root 4.2cm, asc aorta 4.4cm) - current AAA. Pertinent negatives: hypertension ; NM ; CABG ; valvular heart disease; atrial fibrillation; pacemaker/ICD; DVT/PE; negative for CHF; drug-eluting stent(s) and bare metal stent(s) Comments: Typical BP 110/70 + thoracic ascending aortic aneurysm, diagnosed at the time of CT calcium score done in March 2021 Pt f/u with CT surgery, seen 04/18/24: ascending aorta measures 4.3 cm. He is asymptomatic. He is nicely controlled blood pressure. Our recommendation would be continue surveillance with imaging. Follow with cardiology, Dr. Muse 06/2023. Respiratory Pertinent negatives: COPD; asthma; sleep apnea (ASHLEY); no O2 use outside the hospital and non-smoker Hepatic / Heme + Liver disease (fatty liver) + History of anemia (pt reports a few yrs ago) - iron deficiency Gastrointestinal + GERD - on daily therapy. Symptoms < 1x/week. + Hiatal hernia Renal / Pertinent negatives: renal disease and dialysis Comments: +Elevated PSA Endocrine / Other + Obesity (BMI >30) (BMI=32) + Cancer history- skin cancer only. Pertinent negatives: diabetes mellitus; thyroid disease; transplanted organ and infectious disease Functional Capacity Functional capacity: 4-6 METs Comments: Active around the house and independent in ADLs. Walks 30-45 minutes on treadmill daily without CP or SOB. Several days per week Review of Systems Pertinent negatives: productive cough; SOB; recent cold/flu; fever; chest pain; orthopnea; pedal edema; PND; previous transfusion; bleeding problems; syncope; dizziness and no unexpected weight change Comments: Denies UTI, URI, open wounds, or other signs and symptoms of infection at this time. Pt reports cancelling previously scheduled surgery a few months ago for cold/flu symptoms. Today denies any current symptoms in past month. PAT Summary and Plans Cardiac risk classification of planned procedure: low cardiac risk. Preoperative assessment status: complete. Additional comments: Nallely Mejia is a 73 y.o. male who is being evaluated prior to undergoing a low cardiac risk surgery. Revised Cardiac Risk Index factors are (none) for a total RCRI of 0 out of 6. Functional capacity is 4-6 METs. Obstructive sleep apnea (ASHLEY) screening status is STOP-BANG incomplete at 3-4 suggesting MODERATE risk for ASHLEY. Neck circumference pending. May need ASHLEY order set initiated if Co2 >27. This assessment was performed via telephone. Therefore the physical exam has been deferred to the day of surgery team. The patient was provided with preoperative instructions for their medications. Patient instructions were provided by telephone and electronically sent via [employer]. Patient verbalized understanding of instructions. Blood bank needs for day of procedure: No type and screen needed Pending labs/tests include: None TPAP complete. Preoperative evaluation performed by Gianna Mckenzie NP on 04/26/24 at 12:02 PM . 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 Last Dose Start Date End Date Provider bee pollen 550 mg capsule 04/19/2024 -- -- ProviderEugenia MD cholecalciferol 400 unit capsule 04/19/2024 -- -- Eugenia Morales MD esomeprazole DR (NexIUM) 20 mg capsule 04/19/2024 -- -- Eguenia Morales MD icosapent ethyL (VASCEPA) 1 gram capsule 04/19/2024 05/23/21 -- Eugenia Morales MD LORazepam (ATIVAN) 0.5 mg tablet Past Month 06/08/23 -- Eugenia Morales MD metoprolol XL (TOPROL-XL) 25 mg extended release tablet 04/19/2024 -- -- Eugenia Morales MD nitroglycerin (NITROSTAT) 0.4 mg SL tablet -- 04/29/23 04/28/24 Eugenia Morales MD rosuvastatin (CRESTOR) 20 mg tablet 04/18/2024 04/21/21 -- Eugenia Morales MD tamsulosin (FLOMAX) 0.4 mg extended release capsule -- 04/20/24 -- Nallely Thomson MD Take 1 capsule (0.4 mg total) by mouth daily No current facility-administered medications for this encounter. Current Outpatient Medications: bee pollen 550 mg capsule cholecalciferol [address] (NexIUM) 20 mg capsule icosapent ethyL (VASCEPA) 1 gram capsule LORazepam (ATIVAN) 0.5 mg tablet metoprolol XL (TOPROL-XL) 25 mg extended release tablet nitroglycerin (NITROSTAT) 0.4 mg SL tablet rosuvastatin (CRESTOR) 20 mg tablet tamsulosin (FLOMAX) 0.4 mg extended release capsule Social History Tobacco Use Smoking Status Never Smokeless Tobacco Never Alcohol Use: Not At Risk (04/19/2024) AUDIT-C Frequency of Alcohol Consumption: Never Average Number of Drinks: Patient does not drink Frequency of Binge Drinking: Not on file Substance and Sexual Activity Drug Use No Family History Problem Relation Age of Onset Kidney disease Father Heart disease Father Anesthesia problems Neg Hx There were no vitals filed for this visit. Relevant diagnostics: ECG(s): 10/29/2022 EKG sinus rhythm borderline voltage for LVH -per cards note Echocardiogram(s): 08/24/22 The left ventricular size is normal. Estimated [...] Unable to reliably quantitate pulmonary systolic pressure. Stress test(s): 12-13-22 per cards note Stress conclusion: 1. Clinically negative. 2. Electrocardiographically [...] overall low risk for a cardiac event. Cardiac catheterization(s): N/A PFT(s): N/A Vascular studies: N/A Other: CTA chest 04/18/24: Dilation of the aortic root and ascending thoracic aorta measuring up to 43 mm, which measure less compared to prior examination, however this scan is less affected by motion compared to the prior, likely accounting for the differences in measurements. 04/20/[address]: Total calcium score of 559; between 50 and 75% of similar patients have equal or less coronary artery calcium. Annular calcifications of the aortic valve. Ascending aorta dilatation, measuring 4.4 cm. Coronary artery calcification is a specific marker for coronary atherosclerosis. The amount of calcification correlates with severity of coronary atherosclerosis. Paraseptal emphysema. Bilateral gynecomastia. PT: No results found for requested labs within last 30 days. INR: No results found for requested labs within last 30 days. APTT: No results found for requested labs within last 30 days. Hgb A1C: No results found for requested labs within last 30 days. CBC RBC: No results found for requested labs within last 30 days. RDW: No results found for requested labs within last 30 days. MCHC: No results found for requested labs within last 30 days. MCH: No results found for requested labs within last 30 days. MCV: No results found for requested labs within last 30 days. Hct: No results found for requested labs within last 30 days. Hgb: No results found for requested labs within last 30 days. WBC: No results found for requested labs within last 30 days. MPV: No results found for requested labs within last 30 days. Platelets: No results found for requested labs within last 30 days. RDW CV: No results found for requested labs within last 30 days. RDW Sd: No results found for requested labs within last 30 days. BMP Glucose: No results found for requested labs within last 30 days. Calcium: No results found for requested labs within last 30 days. Sodium: No results found for requested labs within last 30 days. Potassium: No results found for requested labs within last 30 days. CO2: No results found for requested labs within last 30 days. Chloride: No results found for requested labs within last 30 days. BUN: No results found for requested labs within last 30 days. Creatinine: 04/18/2024: 0.8 mg/dL [place] index score: 100 documented in this encounter Miscellaneous Notes * Perioperative Nursing Note - Marissa Hirsch RN - 04/30/2024 11:33 AM CDT VSS and patient is progressing well. Sign-out received from Anesthesia. Patient and his family member verbalized understanding of discharge instructions. Awaiting pt. To void. * Op Note - Nallely Thomson MD - 04/30/2024 9:48 AM CDT Operative Report DATE OF SURGERY : 04/30/2024 SURGEON: Nallely Thomson MD PERSONNEL PSYCHOLOGIST: Surgeon(s) and Role: Surgeons and Role: * Nallely Thomson MD - Primary ANESTHESIA: Monitor Anesthesia Care PREOPERATIVE DIAGNOSIS: Pre-op Diagnosis * Elevated PSA [R97.20] POSTOPERATIVE DIAGNOSIS: Pre-op Diagnosis * Elevated PSA [R97.20] PROCEDURE: TRANSPERINEAL EXACT VU GUIDED PROSTATE BIOPSY, BIOPSY PROSTATE - ULTRASOUND INDICATION FOR PROCEDURE: Elevated PSA. The patient understands and wishes to proceed. BRIEF CLINICAL HISTORY: 73 year-old man with elevated PSA. 4K Score 77.1 with PSA 9.10. No MRI. Here for prostate biopsy. PROCEDURE DETAILS: Ancef was given for prophylaxis. No SCDs. MAC. Lithotomy. Sterile prep of the perineal skin. Transrectal ultrasound probe placed. Systematic biopsies of the right and left lobes of the prostate. Pressure was held at the perineum. The patient was awakened and taken to PACU in stable condition. SPECIMENS REMOVED Biopsies of the right and left lobes of the prostate The instruments, needle and sponge count were found to be correct. Complications: None Condition on Discharge from the operating room was stable Nallely Thomson MD Date: 04/30/2024 Time: 9:48 AM PRESENCE STATEMENT : I was present and directly participated in the entire procedure (including opening and closing). * Pre-Procedure Instructions - Gianna Mckenzie NP - 04/26/2024 11:49 AM CDT Center for Preoperative Assessment and Planning CPAP Clinic Location: [facility] The night before your surgery: * Do not eat anything after midnight the night before your procedure. The morning of your surgery: * You may have clear liquids on your surgery day. You must stop drinking two hours before you arrive to the surgery facility. Acceptable clear liquids include water, clear sports drinks, black coffee, tea, or clear soda. DO NOT drink any milk, creamer, or alcohol. * Your surgeon's office may have provided additional instructions or restrictions. Please follow those instructions. * You may brush your teeth and rinse your mouth out. * Do not wear jewelry, body piercings, makeup, hairpins, false eyelashes or contact lenses to the hospital. * Leave any valuables at home or with your family. * If having surgery at [facility], you may want to bring a credit card if you want to use our Mobile Pharmacy for your discharge medications. Mobile pharmacy is not available at [facility], the [facility]opedic Center, or [facility] Outpatient Surgery: * You must have a responsible adult drive you home and stay with you for 24 hours after your surgery * You cannot be alone at home or in a hotel * Please call your surgeon's office if you do not have someone to drive you home and/or stay with you after surgery Instructions For Your Medications: Pre-Surgery Instructions: Medication Instructions bee pollen 550 mg capsule Don't take on day of surgery cholecalciferol 400 unit capsule Don't take on day of surgery esomeprazole DR (NexIUM) 20 mg capsule Take morning of surgery icosapent ethyL (VASCEPA) 1 gram capsule Don't take on day of surgery LORazepam (ATIVAN) 0.5 mg tablet Take on day of surgery if needed metoprolol XL (TOPROL-XL) 25 mg extended release tablet Take morning of surgery nitroglycerin (NITROSTAT) 0.4 mg SL tablet Take on day of surgery if needed rosuvastatin (CRESTOR) 20 mg tablet Take the evening prior to surgery tamsulosin (FLOMAX) 0.4 mg extended release capsule Take morning of surgery General Instructions For Medications: * Stop all of these medications 5 days prior to your surgery: excedrin, motrin, advil, ibuprofen, aleve, naproxen, meloxicam, celebrex, celecoxib. For medications that you are instructed to take on the morning of surgery, take the medications with a few sips of water. Stop all of these medications 7-14 days prior to your surgery: Vitamin E, Herbal medicines, Diet Pills If you have pain, you may take tylenol (acetaminophen). Do not take more than 6 tablets or 3000 mg (3 g) within a 24 period. Call your surgeon and the CPAP clinic if any of the following happens before surgery: Any changes in your health You have a fever You have any signs of an infection (chest, urinary tract or tooth) You have been to the Emergency Room or were in the hospital You have started taking any new medications If laboratory testing was completed during your visit, we will only contact you regarding any results that require you to take additional action prior to your planned procedure. * Perioperative Nursing Note - Nicolasa Ngo RN - 04/19/2024 3:56 PM CDT [facility] Perioperative Nursing Note Telephone Preoperative Evaluation ([facility]) - TELEPHONE ONLY, NO PHYSICAL EXAM Date: 04/19/24 This assessment was completed with the patient. Vitals: 04/19/24 1550 Weight: 108.9 kg (240 lb) Height: 182.9 cm (6') Social History Tobacco Use Smoking Status Never Smokeless Tobacco Never Substance and Sexual Activity Drug Use No Alcohol Use Q2: How many drinks containing alcohol do you have on a typical day when you are drinking?: Patientdoes not drink Outpatient Medications Marked as Taking for the 04/30/24 encounter (Hospital Encounter) Medication Sig Dispense Refill bee pollen 550 mg capsule Take 1 Dose by mouth 2 (two) times a day 1 tbs BID cholecalciferol 400 unit capsule Take 600 Units by mouth every morning esomeprazole DR (NexIUM) 20 mg capsule Take 1 capsule (20 mg total) by mouth daily before breakfast icosapent ethyL (VASCEPA) 1 gram capsule Take 2 capsules (2 g total) by mouth 2 (two) times a day LORazepam (ATIVAN) 0.5 mg tablet Take 1 tablet (0.5 mg total) by mouth every 6 (six) hours as needed for anxiety metoprolol XL (TOPROL-XL) 25 mg extended release tablet Take 0.5 tablets (12.5 mg total) by mouth every morning nitroglycerin (NITROSTAT) 0.[address] 1 tablet (0.4 mg total) under the tongue every 5 (five) minutes as needed for chest pain rosuvastatin (CRESTOR) 20 mg tablet Take 1 tablet (20 mg total) by mouth nightly Implants No active implants to display in this view. SKIN Piercings Remaining: No Wound (LDAs) Type of Wound (LDA): (denies) SCREENINGS [place] index score: 100 PATIENT CARE PLANNING Advance Directives (For Healthcare) Have you reviewed your Advance Directive and is it valid for this stay?: Not applicable Advance Directive: Patient does not have advance directive Information Provided on Healthcare Directives: No Communication/Saw Boss Needs Communication Needs: Glasses Assistive Devices/DME: Eyeglasses Discharge Planning Type of Residence: Private residence Living Arrangements: Spouse/significant other Support Systems: Spouse/significant other Patient expects to be discharged to:: Private residence ADMISSIONS ADVISOR NO ADDITIONAL COMMENTS/ FOLLOW UP * Pre-Procedure Instructions - Nicolasa Ngo RN - 04/19/2024 3:55 PM CDT [facility] ([facility]) PRE-SURGICAL NURSING INSTRUCTIONS Telephone Assessment General Information Discussed with Patient: Surgery location provided to patient. Arrival time and surgical time will be provided to the patient by their surgeon. You should wear clothing that is clean, loose, comfortable and easy to get in and out of on the dayof surgery. You should remove nail coverings, artificial nails and nail canadian prior to the day of surgery. You should leave your valuables and any jewelry at home. No metal or piercings are allowed in the operating room. You should bring your insurance card, a photo ID (example: Bin Piler's License) and a method of payment for any insurance copay, deductible or copay for discharge medications. You should bring a complete, up-to-date, list of all your medications on the day of surgery, including any over the counter medications or supplements you may take. Please note on your medication list, the last date & time you took each medication. The healthcare team, on the day of surgery, will ask for this information. You should bring your Advanced Directive and/or Living Will with you on the day of surgery if you have not verified a copy is already in your Epic Chart. If you are having surgery at [facility], please arrive on the day of surgery with the name and phone number of your local 24 hour pharmacy. Due to evening discharges, your routine pharmacy may be closed. In order to obtain your prescriptions that evening, your surgeon may need to send prescriptions to this pharmacy or have you take prescriptions to this pharmacy when you are discharged. Without this information, you may not be able to obtain your prescriptions that evening. A Guide for Patients Having Surgery: Your Pathway to Excellent Care OUR GOAL IS TO PROVIDE YOU WITH EXCELLENT CARE Use this guide to learn about what you can do before, during and after surgery to help your recovery. You are the most important person on your health care team. By becoming informed and involved, you can contribute to the success of your surgery. If your surgeon's directions are different than those in this guide, talk with your nurse or surgeon to confirm the information. It is important that you understand how to take care of yourself at home after surgery. Be sure to bring this guide with you on the day of surgery and take it home with you after surgery. Write down questions for your nurse or surgeon on the last page of this booklet. Important pages to be reviewed BEFORE surgery: Page 1: QR codes for Surgery Center maps Page 3: Types of Anesthesia Page 5: Tips for the day & night before surgery Page 6: When to stop eating BEFORE surgery and examples of clear liquids Page 7-10: Preventing Infection: Chlorhexidine Gluconate (CHG) Bathing Instructions You may access A Guide for Patients Having Surgery: Your Pathway to Excellent Care by the followinglink: [email or web address] How To Prepare Your Skin For Surgery Below is the Pre-Surgical Bathing Protocol you should follow for your surgery. If your surgeon provides you different bathing instructions, please follow your surgeon's orders. Normal Bathing: Bathe with regular soap the night before and/or day of surgery. Normal Bathing Protocol Bathe with your normal soap the night before and/or the morning of surgery. Wear clean clothes or pajamas to sleep in. After showering DO NOT put on deodorant, hair products, conditioners, lotions, creams, powders, Vaseline or any non-essential products. Remove nail coverings, artificial nails and nail canadian. Place clean linens on your bed the night before surgery. Shaving: You may shave your face, legs and underarms during your evening shower. Avoid shaving on the day of surgery. Travel/Exposure Screening: Travel Screening Have you traveled outside the [place] in the last 6 months?: No Exposure Screening Have you been exposed to anyone who is sick in the last 30 days?: No Have you been exposed to or tested positive for COVID-19 within the last 10 days?: No Infectious Disease Screening Are you having any of the following:: None As of 07/20/2022 any COVID TESTING required for surgery will be set up by your surgeon's office. Please reach out to your surgeon's office if you develop any COVID symptoms, test positive for COVID or are exposed to a COVID positive person. If you have questions, please call the CPAP Staff at [phone], Tuesday-Tuesday 8am-4:30pm. All patients should read the below section: Information on [facility]: Please view [email or web address] (Patient & Visitor Information) for additional details regarding Advanced Directive forms, AWARE, directions, parking information, lodging, Internet access, dining and more. Information on [facility] or [facility] ([facility]): Please view [email or web address] (Patient and Visitor Information) for parking/directions and more. For MyChart information, to activate account or password recovery, please go to [email or web address] or call [phone] (toll-free: [phone]), Tue- Tuesday 8am-5pm. Information for Suicide Prevention: National Suicide Prevention Lifeline (8-679- 595-MCSI (9704)) or call or text 009. Chat resources: [email or web address]. Surgery Times: For patients having surgery @ [facility] or [facility] ([facility]), if your surgeon's office has not notified you of your surgery time by NOON THE BUSINESS DAY BEFORE your surgery, please call [phone] and ask for your surgeon's office [facility] ([facility]) does not provide arrival times for the day of surgery or provide the duration of surgery. This information is provided by your surgeon'soffice or by the center where you are having surgery. We appreciate your understanding. documented in this encounter Plan of Treatment Not on file documented as of this encounter Procedures Procedure Name Priority Date/Time Associated Diagnosis Comments SURGICAL PATHOLOGY Routine 04/30/2024 10 :32 AM CDT Elevated PSA BIOPSY PROSTATE - ULTRASOUND 04/30/2024 10:17 AM CDT Elevated PSA TRANSPERINEAL EXACT VU GUIDED PROSTATE BIOPSY 04/30/2024 10:17 AM CDT Elevated PSA documented in this encounter Results * Surgical pathology (04/30/2024 10:32 AM CDT) Tissue (Prostate, Needle Biopsy) 04/30/2024 10:32 AM CDT Tissue (Prostate, Needle Biopsy) 04/30/2024 10:32 AM CDT Narrative PATHOLOGY [facility] - 05/01/2024 2:42 PM CDT EPIC results best viewed via link to PDF [facility] [place] [address] Note to Patients: This report may contain a detailed description of human tissue sent by a health care provider to the laboratory for pathologic evaluation. The content of this report is essential for diagnosis and may provide important critical findings. This information may be unfamiliar to patients to review without a medical professional present. It is advised that the patient review this report in the presence of a health care provider who can answer questions and explain the details. SURGICAL PATHOLOGY REPORT FINAL WITH ADDENDUM Patient Name: ?? NALLELY MEJIA Gender: ??M : ??1950 (Age: 73) Address: ??[address] [place] [address] ??[id number] [facility] #: ??[id number] Taken:04/30/2024 Received:04/30/2024 Reported: 05/01/2024 Patient Type: C EP SAME Client ?[facility] Service: Surgery Location: Physician(s): ??Ze Larsen M.D. Diagnosis: A. Prostate, right, biopsy: ? - Prostatic adenocarcinoma, Anil score 3+4=7 (5% pattern 4), grade group 2, in two of four core(s), involving 60% of total core tissue ? B. Prostate, left, biopsy: ? - Prostatic adenocarcinoma, [place]alla score 3+4=7 (15% pattern 4), grade group 2, in six of seven core(s), involving 40% of total core tissue ? - Perineural invasion present /05/01/2024 07:14 By this signature, I attest that the above diagnosis is based upon my personal examination of the slides(and/or other material indicated in the diagnosis). Braulio Corrigan, DO Report Electronically Reviewed and Signed Out By ??Braulio Corrigan DO 05/01/2024 14:42:39 Microscopic Description and Comment: Microscopic examination substantiates the above cited diagnosis. Danyell Grijalva M.D. History: The patient is a 73-year-old man with elevated PSA. ??Operative procedure: ??Transperineal exact guided prostate biopsy. Specimen(s) Received: A: Right prostate biopsy B: Left prostate biopsy Gross Description: Received in two formalin jars labeled with the patient's identifiers. A. ??Labeled right prostate biopsy and consists of four core(s) of soft reyez tissue (ranging from 1.3 cm to 1.6 cm in length by 0.1 cm in diameter). Stained with eosin.Labeled A1. Jar 0. B. ??Labeled left prostate biopsy and consists of six core(s) of soft reyez tissue (ranging from 1.1 cm to 1.6 cm in length by 0.1 cm in diameter). Stained with eosin.Labeled B1 to B2. Jar 0. ?? cnewho/04/30/2024 13:53 PA(s): DOMINICK Vasquez By this signature, I attest that the above diagnosis is based upon my personal examination of the slides(and/or other material). Addenda/Procedures Addendum Ordered:06/14/2024Status:Signed OutAddendum Complete:06/14/2024y:Nathaniel Sigala M.D., PH.D.Addendum Signed Out:06/18/2024 Addendum Comment A request for Molecular Archived Tissue Testing was received, which is to be performed on tissue from the attached case. The report, slides and blocks for the case were retrieved from archives. The pathologist whose signature appears below reviewed the original pathology report, examined H&E slides, and selected the blocks appropriate to the specifications of the ordered molecular analysis. Materials were forwarded to [facility] where the Polaris Biopsy Test test will be performed. An addendum report will be issued when the results of this molecular test are available. ?? By this signature, I attest that the above diagnosis is based upon my personal examination of the slides(and/or other material indicated in the diagnosis). Nathaniel Sigala M.D., PH.D.Report Electronically Reviewed and Signed Out By ??Nathaniel Sigala M.D., PH.D. ??06/18/2024 10:38:59 ?? Addendum Ordered:07/30/2024Status:Signed OutAddendum Complete:07/30/2024y:Nathaniel Sigala M.D., PH.D.Addendum Signed Out:07/30/2024 Addendum Diagnosis A digital scan of the original reference lab report will begin on page two of this addendum. This testing was ordered at the request of Dr. Kip Jade. Block B2 was selected, and sent for the testing referenced below. ?? By this signature, I attest that the above diagnosis is based upon my personal examination of the slides(and/or other material indicated in the diagnosis). Nathaniel Sigala M.D., PH.D.Report Electronically Reviewed and Signed Out By ??Nathaniel Sigala M.D., PH.D. ??07/30/2024 09:59:01 ?? The [facility]Choice HRD test was performed by [facility] [address] [place], [place] [address]. Microscopic slide review and interpretation for this case was performed at [facility], Department of Surgical Pathology, [address] [facility] [address], [id number], [facility], [place] ??[address] ?? CLIA # [id number] The performance characteristics of some immunohistochemical stains, fluorescence in-situ hybridization tests and immunophenotyping by flow cytometry cited in this report (if any) were determined by the Surgical Pathology and Flow Cytometry Departments at [facility] as part of an ongoing coding quality coordinator program and in compliance with federally mandated regulations drawn from the Clinical Laboratory Improvement Act of 1988 (CLIA '88). ??Some of these tests rely on the use of analyte specific reagents and are subject to specific labeling requirements by the US Food and Drug Administration. ??Such diagnostic tests may only be performed in a facility that is certified by the Department of Health and Human Services as a high complexity laboratory under CLIA '88. ??The FDA has determined that such clearance or approval is not necessary. ??This test is used for clinical purposes. ??It should not be regarded as investigational or for research. ??Nevertheless, federal rules concerning the medical use of analyte specific reagents require that the following disclaimer be attached to the report: This test was developed and its performance characteristics determined by the Surgical Pathology and Flow Cytometry Departments of [facility]. ??It has not been cleared or approved by the [place]. S. Food and Drug Administration. IMAGES AND SCANNED DOCUMENTS, IF INCLUDED, ONLY VIEWABLE IN PDF VERSION OF REPORT Nallely Thomson MD LAB PATHOLOGY ORDERABLES Final Result PATHOLOGY [facility] [phone] documented in this encounter Visit Diagnoses Diagnosis Elevated PSA Elevated prostate specific antigen (PSA) documented in this encounter Administered Medications Inactive Administered Medications - up to 3 most recent administrations Medication Order MAR Action Action Date Dose Rate Site Lactated Ringer's (LR) infusion 30 mL/hr, intravenous, Continuous, Starting on 04/30/24 at 1015, For 4 hours, Pre-Op, Use a 500 ml bag for End Stage Renal Disease Patients. Discontinue if fluid still running once patient arrives to floor. New Bag 04/30/2024 10:13 AM CDT 30 mL/hr Lactated Ringer's (LR) infusion 125 mL/hr, intravenous, Continuous, Starting on Tue04/30/24 at 1130, For 4 hours, Phase I, Discontinue upon discharge from PACU to the floor. New Bag 04/30/2024 11:10 AM CDT 125 mL/hr 125 mL/hr documented in this encounter Historical Medications * This list may reflect changes made after this encounter. bee pollen 550 mg capsuleIndications :supplement/allerg ies Take 1 Dose by mouth 2 (two) times a day 1 tbs BID added in this encounter Active and Recently Administered Medications Times are shown in CDT. Continuous Medication Order 04/28/2024 04/29/2024 04/30/2024 Lactated Ringer's (LR) infusion 30 mL/hr, intravenous, Continuous, Starting on Tue04/30/24 at 1015, For 4 hours, Pre-Op, Use a 500 ml bag for End Stage Renal Disease Patients. Discontinue if fluid still running once patient arrives to floor. 1013 (New Bag - Prov ider: Lee Mcdonald CRNA)1046 (Anesthesia Volume Adjustment - Provider: Lee Mcdonald CRNA)1642 (Due: Stopped) Lactated Ringer's (LR) infusion 125 mL/hr, intravenous, Continuous, Starting on Tue04/30/24 at 1130, For 4 hours, Phase I, Discontinue upon discharge from PACU to the floor. 1053 (Continued from OR - Provider: Marissa Hirsch RN)1110 (New Bag - Provider: Marissa Hirsch RN)1642 (Due: Stopped) PRN Medication Order 04/28/2024 04/29/2024 04/30/2024 acetaminophen (TYLENOL) tablet 500 mg 500 mg, oral, Every 6 hours PRN, headaches, other, Breakthrough Pain and Supplement to other pain meds, Starting on Tue04/30/24 at 1054, For 2 doses, Phase I, When able to tolerate PO after consulting with Anesthesiologist. Do not administer if patient has already received Acetaminophen-containing medications in PACU., Indications: Pain diphenhydrAMINE (BENADRYL) 50 mg/mL injection 12.5 mg 12.5 mg, intravenous, Administer over 1 Minutes, Every 5 min PRN, itching, other, For Nausea, administer 25 mg IV., Starting on Tue04/30/24 at 1054, For 4 doses, Phase I, Max cumulative dose 50 mg., Indications: Itching fentaNYL (SUBLIMAZE) preservative free injection 25 mcg 25 mcg, intravenous, Every 5 min PRN, 1st line for pain, Use Fentanyl as 1st line medication for extremely severe pain for outpatients, and follow with oral pain medication., Starting on Tue04/30/24 at 1054, For 4 doses, Phase I, Use as 1st line for outpatients, dose not to exceed 100 mics. If pain still extremely severe after 100 mics of Fentanyl, may proceed to Dilaudid after consulting with Anesthesiologist. If patient able to tolerate PO meds and pain improved after Fentanyl, proceed to Oral pain medication., Indications: Pain hydrALAZINE (APRESOLINE) injection 5 mg 5 mg, intravenous, Administer over 2 Minutes, Every 5 min PRN, high blood pressure, Starting on Tue04/30/24 at 1054, Phase I, Max cumulative dose 20 mg. Dose if systolic BP greater than 180 AND heart rate less than 70., Indications: hypertension HYDROcodone-acetaminophen (NORCO) 5-325 mg per tablet 1 tablet 1 tablet, oral, Every 20 min PRN, breakthrough pain, May use as 1st line pain medication if pain not extremely severe and patient able to tolerate PO meds. If unable to tolerate PO meds or outpatient complaining of extremely severe pain, start with Fentanyl and follow with Oral meds., Starting on Tue04/30/24 at 1054, For 2 doses, Phase I, May administer TWO pills together if pain moderate to severe and patient able to tolerate PO meds, after consulting with Anesthesiologist., Indications: Pain HYDROmorphone (DILAUDID) injection 0.2 mg 0.2 mg, intravenous, Administer over 2 Minutes, Every 5 min PRN, 2nd line for pain, Starting on Tue04/30/24 at 1054, Phase I, Use as 1st line pain medication for INpatients with pain score LESS than 6 out of 10. May use as first line medication for OUTpatients with extremely severe pain (7 out of 10 or above), history of opioid tolerance, or history of Chronic Pain with opioid tolerance, after consulting with Anesthesiologist. Inform anesthesiologist when dose reaches 2 mg for INpatients or 1 mg for OUTpatients. , Indications: Pain HYDROmorphone (DILAUDID) injection 0.4 mg 0.4 mg, intravenous, Administer over 2 Minutes, Every 10 min PRN, 3rd line for pain, Starting on Tue04/30/24 at 1054, Phase I, Use as first line pain medication for INpatients with pain score ABOVE 7 out of 10. Inform anesthesiologist when dose reaches 2 mg for INpatients. , Indications: Pain labetaloL (NORMODYNE,TRANDATE) injection 5 mg 5 mg, intravenous, Every 5 min PRN, high blood pressure, Starting on Tue04/30/24 at 1054, For 4 doses, Phase I, Max cumulative dose 20 mg. Dose if systolic blood pressure greater than 180 AND HR greater than 70. lidocaine (XYLOCAINE) 10 mg/mL (1 %) injection (CANCELED) As needed, Starting on Tue04/30/24 at 1030, Intra-Op, Indications: Administration of Local Anesthesia 1030 (Given - Provid er: Nallely Thomson MD) meperidine (DEMEROL) preservative free injection 12.5 mg 12.5 mg, intravenous, Administer over 5 Minutes, Every 10 min PRN, shivering, Starting on Tue04/30/24 at 1054, For 2 doses, Phase I, Max cumulative dose 25 mg., Indications: Shivering naloxone (NARCAN) 0.4 mg/mL injection 0.04-0.4 mg 0.04-0.4 mg, intravenous, Once as needed, other, excessive sedation/respiratory depression, Starting on Tue04/30/24 at 1054, For 1 dose, Phase I, Dilute 0.4 mg with 9 mL NS (final concentration 0.04 mg/mL). For respiratory depression (respiratory rate less than 6), administer 0.4 mg IVP over 30 seconds. For excessive sedation administer 0.04 mg (1 mL) every 1 minute until desired level of alertness. Consult with Anesthesiologist before administration. Administer 40 mics at a time. For IV, administer over 30 seconds., Indications: Opioid Toxicity ondansetron (ZOFRAN) injection 4 mg 4 mg, intravenous, Administer over 2 Minutes, Once as needed, nausea, vomiting, Starting on Tue04/30/24 at 1054, For 1 dose, Phase I, Proceed to prochlorperazine if ondansetron has been given within the last 6 hours. prochlorperazine (COMPAZINE) injection 5 mg 5 mg, intravenous, Administer over 2 Minutes, Once as needed, nausea, vomiting, Starting on Tue04/30/24 at 1054, For 2 doses, Phase I, If nausea/vomiting not relieved by ondansetron within 30 minutes or if ondansetron has been given within the last 6 hours. May repeat in 15 minutes of nausea not relieved. documented in this encounter Orders Medications Ordered That Gumaro ht Not Have Been Administered Count Last Ordered Date First Ordered Date acetaminophen (TYLENOL) tablet 500 mg 1 01/2024 diphenhydrAMINE (BENADRYL) 5 0 mg/mL injection 12.5 mg 04/30/2024 famotidine (PEPCID) injection 20 mg 1 04/30 fentaNYL (SUBLIMAZE) preserv ative free injection 25 mcg 04/30/2024 hydrALAZINE (APRESOLINE) injection 5 mg 1 0 04/30/2024 HYDROcodone-acetaminophen (N ORCO) 5-325 mg per tablet 1 tablet 1 04/30/2024 HYDROmorphone (DILAUDID) injection 0.2 mg 04/30/2024 HYDROmorphone (DILAUDID) injection 0.4 mg 1 04/30/2024 labetaloL (NORMODYNE,TRANDAT E) injection 5 mg 1 04/30/2024 Lactated Ringer's (LR) infusion lidocaine (PF) (XYLOCAINE) 1 0 mg/mL (1 %) preservative free injection 2-10 mg 04/30/2024 lidocaine (XYLOCAINE) 10 mg/ mL (1 %) injection 1 04/30/2024 meperidine (DEMEROL) preserv ative free injection 12.5 mg 1 04/30/2024 naloxone (NARCAN) 0.4 mg/mL injection 0.04-0.4 mg 1 04/30/2024 ondansetron (ZOFRAN) injection 4 mg 1 04/30 prochlorperazine (COMPAZINE) injection 5 mg 04/30/2024 scopolamine patch 72 hour 1 patch 1 024 sodium chloride 0.9% flush 0.5-20 mL 1 01/2024 Discharge Count Last Ordered Date First Orde red Date DISCHARGE PATIENT 1 04/30/2024 documented in this encounter Care Teams Manager Environmental Health And Safety Relationship Specialty Start Date End Date Corey Angel MD [address] INTERNAL MEDICINE [place] [id number] PCP - General Internal Medicine 06/18/21 documented as of this encounter
--- OUTSIDE RECORDS SUMMARY | 2024-09-30 09:21 | XMS_ITS | Encounter Summary ---
Author Organization [facility] Healthcare Address [address] [place] [address] Care Team Providers Care Heavy Equipment Supervisor Name Role Phone Corey Angel MD Primary Care Provider Reason for Visit * Auth/Cert (Routine) Specialty Diagnoses / Procedures Referred By Contac t Referred To Contact Diagnoses Elevated PSA Elevated PSA [R97.20] Procedures CA BX PROSTATE STRTCTC SATURATION SAMPLING IMG GID CHG US GUIDANCE NEEDLE PLACEMENT IMG S&I TRANSPERINEAL EXACT VU GUIDED PROSTATE BIOPSY BIOPSY PROSTATE - ULTRASOUND Referral ID Status Reason Start Date Expiration Date Visits Re quested Visits Authorized [id number] 1 1 Encounter Details Date Type Department Care Team (Late st Contact Info) Description 04/30/2024 10:13 AM CDT Anesthesia Event [facility] Operating Room [address] [place] [address] Yvonne Gao MD [address] [place] [address] Emmy Garcia MD [address] [place] [address] Anesthesia Record Procedure Summary Procedure Name Responsible Anesthesiologist Anesthesia Start Time Anesthesia Stop Time TRANSPERINEAL EXACT VU GUIDED PROSTATE BIOPSY (Perineum) Yvonne Gao MD 04/30/24 1013 04/30/24 1057 Events Date Time Event Comment 04/30/2024 0932 In Preop [id number] AN Equip Check 1013 An Start 1017 In Room 1018 An Start Data 1021 Start Supplemental O2 1024 An Induction The patient was reevaluated immediately before moderate or deep sedation use and before anesthesia induction. 1025 Anesthesia Ready 1029 Proc Start 1047 Proc Fin 1049 an stop data 1051 Out of Room 1057 Handoff to RN I completed my handoff to the receiving nurse during which we: 1. Patient identified 2. Responsible provider identified 3. Pertinent medical history reviewed 4. Procedure type and surgical course discussed 5. Intraoperative anesthetic management and any significant issues discussed 6. Expectations and concerns for postop period discussed 7. Questions solicited from receiving nurse 8. Patient disposition at the time of handoff: No value filed. 1057 An Stop Meds Name Total fentaNYL PF 100 mcg Lidocaine IV 1% 30 mg propofol 280 mg ondansetron PF 4 mg ceFAZolin 2,000 mg Lactated Ringer's (LR) infusion 500 mL * Agents Name O2 N2O Air Sevoflurane Inspired Sevoflurane * Blood No blood administrations on file. Lines, Drains, and Airways Type Details Placement Removal Peripheral IV Placement Date: 04/30/24; Placement Time: 1008; Catheter Size: 20 G; Orientation: Anterior, Right; Location: Forearm; Technique: Anatomical landmarks; Insertion Attempts: 1; Patient Tolerance: Tolerated well 04/30/24 1008 by Song Aragon, MICAH RETIRED Surgical Site 04/30/24; 1034; Perineum; 08/28/24 (Retired LDA, Removed/Completed by [employer] with LDA Utility); 1213 (Retired LDA, Removed/Completed by [employer] with LDA Utility) 04/30/24 1034 by Key Hayes RN 08/28/24 1213 by Discharge Provider, Automatic documented in this encounter Social History Tobacco Use Types Packs/Day Years [...] on file 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 Gender Identity Male 05/22/2018 10:57 AM CDT Sexual Orientation Straight 11/03/2020 7: 01 PM SOUND SYSTEM INSTALLER Occupation Industry Job Start Date Job End Date working Not on file Not on file Not on file documented as of this encounter OR Notes * Anesthesia Postprocedure Evaluation - Yvonne Gao MD - 04/30/2024 11:02 AM CDT Patient: Clem Capellan Procedure Summary Date: 04/30/24 Room / Location: [facility] OPERATING ROOM 02 / [facility] OPERATING ROOM Anesthesia Start: 1013 Anesthesia Stop: 1056 Procedures: TRANSPERINEAL EXACT VU GUIDED PROSTATE BIOPSY (Perineum) BIOPSY PROSTATE - ULTRASOUND (Perineum) Diagnosis: Elevated PSA (Elevated PSA [R97.20]) Surgeons: Clem Thomson MD Responsible Provider: Yvonne Gao MD Anesthesia Type: MAC ASA Status: 2 Anesthesia Type: MAC Last vitals BP 97/62 Pulse 76 Temp 36.6 ??C (97.9 ??F) Resp 12 SpO2 93% Anesthesia Post Evaluation Patient location during evaluation: PACU Patient participation: complete - patient participated Level of consciousness: fully awake Pain score: 0 Pain management: adequate Airway patency: adequate Evidence of recall: no Cardiovascular status: hemodynamically stable and acceptable Respiratory status: acceptable and room air Hydration status: acceptable Pt is: normothermic Nausea/Vomiting status: none No notable events documented. * Anesthesia Preprocedure Evaluation - Yvonne Gao MD - 04/26/2024 11:45 AM CDT Images from the original note were not included. [facility] Planning Preoperative Evaluation Record Evaluation type/location: TPAP from [facility] Planned procedure site: [facility] OR Date: 04/26/24 NOTE: This note represents a preoperative evaluation initiated via telephone interview. NO PHYSICALEXAM was performed at the time of initial assessment. A physical exam may be added to this note anddocumented below. Anesthesia Evaluation Clem Capellan is a 73 y.o. male TRANSPERINEAL EXACT [...] - current AAA. Pertinent negatives: hypertension ; SC ; CABG ; valvular heart disease; atrial [...] risk. Preoperative assessment status: complete. Additional comments: Clem Capellan is a 73 y.o. male who is [...] provided by telephone and electronically sent via [employer]. Patient verbalized understanding of instructions. Blood bank needs for day of procedure: No type and screen needed Pending labs/tests include: None TPAP complete. Preoperative evaluation performed by Gianna Mckenzie NP on 04/26/24 at 12:02 PM . 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 Attestation: This PAT evaluation Airway Exam: Mallampati: III Cervical ROM: FROM Cardiovascular Exam: Rate: regular Rhythm: regular Pulmonary Exam: LCTA, bilat Anesthesia Plan ASA 2 My patient is approved for the Anesthesia Controlled Medication protocol when under care of a TEST DEPARTMENT HELPER Planned anesthesia: MAC Informed Consent: Anesthesia plan and risks discussed with patient. Consent and Attending signature: I and/or my designee have discussed the anesthesia plan, benefits, possible alternatives, parental presence at time of induction (if indicated), and clinically relevant risks that may include dental injury, unintentional awareness, and/or other complications. The patient and/or parent/legal guardian understand, and agree to proceed. All questions answered. documented in this encounter Plan of Treatment Not on file documented as of this encounter Visit Diagnoses Not on filedocumented in this encounter Administered Medications Inactive Administered Medications - up to 3 most recent administrations Medication Order MAR Action Action Date Dose Rate Site ceFAZolin (ANCEF) injection intravenous, Administer over 3 Minutes, As needed, Starting on Tue04/30/24 at 1024, Anesthesia Intra-op Given 04/30/2024 10:24 AM CDT 2,000 mg fentaNYL (SUBLIMAZE) preservative free injection intravenous, As needed, Starting on Tue04/30/24 at 1022, Anesthesia Intra-op Given 04/30/2024 10:29 AM CDT 25 mcg Given 04/30/2024 10:24 AM CDT 25 mcg Given 04/30/2024 10:22 AM CDT 50 mcg Lactated Ringer's (LR) infusion 30 mL/hr, intravenous, Continuous, Starting on Tue04/30/24 at 1015, For 4 hours, Pre-Op, Use a 500 ml bag for End Stage Renal Disease Patients. Discontinue if fluid still running once patient arrives to floor. New Bag 04/30/2024 10:13 AM CDT 30 mL/hr lidocaine (PF) (XYLOCAINE) 10 mg/mL (1 %) preservative free injection intravenous, As needed, Starting on Tue04/30/24 at 1024, Anesthesia Intra-op Given 04/30/2024 10:24 AM CDT 30 mg ondansetron (ZOFRAN) injection intravenous, Administer over 2 Minutes, As needed, Starting on Tue04/30/24 at 1027, Anesthesia Intra-op Given 04/30/2024 10:27 AM CDT 4 mg propofoL (DIPRIVAN) 10 mg/mL IV intravenous, As needed, Starting on Tue04/30/24 at 1024, Anesthesia Intra-op Given 04/30/2024 10:41 AM CDT 10 mg Given 04/30/2024 10:40 AM CDT 20 mg Given 04/30/2024 10:39 AM CDT 10 mg documented in this encounter Care Teams Heavy Equipment Supervisor Relationship Specialty Start Date End Date Corey Angel MD [address] [place] [address] PCP - General Internal Medicine 06/18/21 documented as of this encounter
--- OUTSIDE RECORDS SUMMARY | 2024-09-30 09:21 | XMS_ITS | Encounter Summary ---
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 Gender Identity Male 05/22/2018 10:57 AM CDT Sexual Orientation Straight 11/03/2020 7: 01 PM EMS INSTRUCTOR Occupation Industry Job Start Date Job End Date working Not on file Not on file Not on file documented as of this encounter Plan of Treatment Not on file documented as of this encounter Visit Diagnoses Not on filedocumented in this encounter Care Teams Project Surveyor Relationship Specialty Start Date End Date Corey Angel MD [address] [place] [address] PCP - General Internal Medicine 06/18/21 Clem Thomson MD [address] [facility] [address] [facility] [place] [place] [address] Referring Physician Urology 06/14/24 Harman Morales MD [address] [place] [address] Radiation Oncologist Radiation Oncology 06/22/24 documented as of this encounter
--- OUTSIDE RECORDS SUMMARY | 2024-09-30 09:21 | XMS_ITS | Encounter Summary ---
Author Organization [facility] Address [address] [place] [address] Phone Care Team Providers Care Occupational Medicine Physician Name Role Phone Corey Angel MD Primary Care Provider [phone] Reason for Referral * Consultation (Routine) - Closed Specialty Diagnoses / Procedures Referred By Hoang zavala Referred To Contact Radiation Oncology Diagnoses Prostate cancer (HCC) Clem Thomson MD [address] [facility] [id number] [place] [address] Phone: tel: fax: [facility] Radiation Oncology [address] [place] [address] Phone: tel: fax: Referral ID Status Reason Start Date Expiration Date V isits Requested Visits Authorized [id number] Closed Specialty Services Required 06/12/2024 07/15/2024 1 1 Question Answer Please select the performing region: [facility] [[id number]] Please select the performing department: [place] [address] RAD ONC [[id number]] # of visits: 1 Comments Newly diagnosed Anil 3+4 prostate cancer. Encounter Details Date Type Department Care Team (Late st Contact Info) Description 06/12/2024 Orders Only [facility] Urology [address] [facility] Medical Office Building [address] [place] [address] Clem Thomson MD [address] [facility] [phone] [place] [address] Prostate cancer (HCC) (Primary Dx) Social History [...] on file Legal Sex Male 2:49 AM CAREER DEVELOPMENT CONSULTANT Gender Identity Male 05/22/2018 10:57 AM CDT Sexual Orientation Straight 11/03/2020 7: 01 PM CAREER DEVELOPMENT CONSULTANT Occupation Industry Job Start Date Job End Date working Not on file Not on file Not on file documented as of this encounter Plan of Treatment Scheduled Referrals Name Type Priority Associated Diagnoses Order Schedule Ambulatory referral to Radiation Oncology Outpatient Referral Routine Prostate cancer (HCC) Expected: 06/26/2024 (Approximate), Expires: 06/12/2025 documented as of this encounter Visit Diagnoses Diagnosis Prostate cancer (HCC)- Primary Malignant neoplasm of prostate documented in this encounter Care Teams Occupational Medicine Physician Relationship Specialty Start Date End Date Corey Angel MD [address] [facility] [address] [facility] [address] [place] [address] PCP - General Internal Medicine 06/18/21 documented as of this encounter
--- OUTSIDE RECORDS SUMMARY | 2024-09-30 09:21 | XMS_ITS | Encounter Summary ---
Author Organization [facility] Healthcare Address [address] [place] [address] Care Team Providers Care Household Refrigerator Mechanic Name Role Phone Corey Hernández MD Primary Care Provider [phone] Johnson Falcon MD Unavailable [phone] Clem Thomson MD Unavailable Encounter Details Date Type Department Care Team (Late st Contact Info) Description 06/18/2024 Telephone [facility] Medical Office Building 2 Radiation Oncology [address] [place] [address] Lucila Allen Social History Tobacco Use Types Packs/Day Years [...] on file Legal Sex Male 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 [employer] In Network / Out of Network? In Network Yes/No Physician Additional Notes Do you have a primary care physician? Yes Rajesh HERNÁNDEZ Have you been seen by a cancer physician? No Have you seen a radiation doctor? No Have you seen a surgeon for your cancer? Yes Kimberlyn Thomson Are there any other specialists in your care? Yes UROLOGY Yes/No Date(s) Location(s) Biopsy performed? Yes 04/30/2024 [facility] Did you have a CT scan? No Did you have a PET scan? Yes 06/13/2024 Did you have a (MRI) scan? No Did you receive chemotherapy? No Did you receive radiation? No Since your cancer diagnosis, have you been in the hosptial or had surgery? No documented in this encounter Plan of Treatment Not on file documented as of this encounter Visit Diagnoses Not on filedocumented in this encounter Care Teams Household Refrigerator Mechanic Relationship Specialty Start Date End Date Corey Hernández MD [address] [facility] [address] [place] [address] PCP - General Internal Medicine 06/18/21 Johnson Falcon MD [address] [facility] [address] [place] [address] Radiation Oncologist Radiation Oncology 06/14/24 Clem Thomson MD [address] [facility] [address] [place] [address] Referring Physician Urology 06/14/24 documented as of this encounter
--- OUTSIDE RECORDS SUMMARY | 2024-09-30 09:21 | XMS_ITS | Encounter Summary ---
Author Organization [facility] Address [address] [place] [address] Phone Care Team Providers Care Film Writer Name Role Phone Corey Angel MD Primary Care Provider [phone] Encounter Details Date Type Department Care Team (Late st Contact Info) Description 04/18/2024 Telephone [facility] Urology [address] [facility] Medical Office Building [address] [place] [address] Tana Elizondo Social History Tobacco Use Types Packs/Day Years Used Date Smoking Tobacco: Never Smokeless Tobacco: Never Alcohol Use Standard Drinks/Week Comments No 0 (1 standard drink = 0.6 oz pur e alcohol) AUDIT-C Answer Date Recorded Q1: How often do you have a drink containing alcohol? Never 04/19/2024 Q2: How many drinks containi ng alcohol do you have on a typical day when you are drinking? 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 Case scheduled, letter sent * Telephone Encounter - Tana Elizondo - 04/18/2024 4:49 PM CDT ----- Message from Tana Russo sent at 02/27/2024 10:38 AM CDT ----- Regarding: FW: tpn canceled due to illness [facility] [facility] Clinical Pool (supporting Clem Thomson MD)14 hours ago (8:18 PM) RE Thanks for your follow-up Tana. I have hit some summer snags in my scheduling and will have to get back with you next month now. Praying for optimal results when I can finally get in. Wade ----- Message ----- From: Tana Elizondo Sent: 02/17/2024 12:51 PM CDT To: Tana Elizondo Subject: FW: tpn canceled due to illness 02/17/24 let message on vm for pt to call back to rschedule transperineal prostate biopsy ----- Message ----- From: Tana Elizondo Sent: 01/31/2024 10:27 AM CDT To: Tana Elizondo Subject: tpn canceled due to illness documented in this encounter Plan of Treatment Not on file documented as of this encounter Visit Diagnoses Not on filedocumented in this encounter Care Teams Film Writer Relationship Specialty Start Date End Date Corey Angel MD [address] [facility] [address] [facility] [address] INTERNAL MEDICINE [place] [id number] PCP - General Internal Medicine 06/18/21 documented as of this encounter
--- OUTSIDE RECORDS SUMMARY | 2024-09-30 09:21 | XMS_ITS | Encounter Summary ---
Author Organization [facility] Address [address] [facility] [address] [place] [address] Phone Care Team Providers Care Professor Of Journalism Name Role Phone Corey Angel MD Primary Care Provider [phone] Encounter Details Date Type Department Care Team (Late st Contact Info) Description 04/18/2024 10:45 AM CDT Office Visit [facility] Surgery [facility] [address] [place] [id number] Eusebia Coleman MD [address] [facility] [address] [place] [address] Aneurysm of ascending aorta without rupture (HCC) (Primary Dx) Social History Tobacco Use [...] on file 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 Gender Identity Male 05/22/2018 10:57 AM CDT Sexual Orientation Straight 11/03/2020 7: 01 PM COURTESY CAR DRIVER Occupation Industry Job Start Date Job End Date working Not on file Not on file Not on file documented as of this encounter Last Filed Vital Signs Vital Sign Reading Time Taken Comments Blood Pressure 122/83 04/18/2024 10:17 AM CDT Pulse 70 04/18/2024 10:17 AM CDT Temperature - - Respiratory Rate - - Oxygen Saturation 98% 04/18/2024 10:17 AM CDT Inhaled Oxygen Concentration - - Weight 111.1 kg (245 lb) 04/18/2024 10:17 AM CDT Height 182.9 cm (6') 04/18/2024 10:17 AM CDT Body Mass Index 33.23 04/18/2024 10:17 AM CDT documented in this encounter Progress Notes * Tameka Mixon, TYLER - 04/18/2024 10:45 AM CDT [facility] Division of Cardiothoracic Surgery Name: Clem Capellan : 1950 Date: 04/18/2024 Requesting Voting Machine Repairer:Corey Angel MD PCP: Corey Angel MD Consulting Surgeon: Eusebia Coleman MD/Tameka Mixon ANP Reason For Consultation: ascending aortic aneurysm Subjective Patient is a 73 y.o. male with no complaints. HPI: Mr. Capellan returns today for follow-up imaging of his aorta. This was identified on a CT calcium scan for evaluation of coronary artery disease risk assessment. This was in 2020. 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 He remains active around his house with chores. He denies any limitations in activity. His blood pressure at home typically ranges in the 100 / 70.. He denies any chest or back pain. He does not smoke. The rest of his 14 review of systems were reviewed and negative except as stated above. BP Readings from Last 1 Encounters: 04/18/24 122/83 Pulse Readings from Last 1 Encounters: 04/18/24 70 Wt Readings from Last 1 Encounters: 04/18/24 111.1 kg (245 lb) Ht Readings from Last 1 Encounters: 04/18/24 182.9 cm (6') SpO2 Readings from Last 1 Encounters: 04/18/24 98% Physical Exam Constitutional: Appearance: Normal appearance. HENT: Head: Normocephalic. Mouth/Throat: Mouth: Mucous membranes are moist. Eyes: Pupils: Pupils are equal, round, and reactive to light. Cardiovascular: Rate and Rhythm: Normal rate and regular rhythm. Pulses: Normal pulses. Heart sounds: Normal heart sounds. Pulmonary: Effort: Pulmonary effort is normal. Breath sounds: Normal breath sounds. Abdominal: General: Bowel sounds are normal. Palpations: Abdomen is soft. Musculoskeletal: General: Normal range of motion. Cervical back: Normal range of motion and neck supple. Skin: General: Skin is warm and dry. Neurological: Mental Status: He is alert and oriented to person, place, and time. Psychiatric: Behavior: Behavior normal. Lab/Radiology/Diagnostic Review: Echocardiogram V function 60% trileaflet with trace AR, PAP 25, RAP 10, aortic root 4.2cm Chest CT: 05/06/2021 Fusiform aorta 4.2 cm no saccular component, no mural thrombus no dissection. Stress Test:04/2021Negative for symptoms or ST or T wave changes. Chest CT:08/04/2022 Sinuses of Valsalva: Posterior commissure: 4.3 x 4.5 x 3.9 cm, previously 4.4 x 4.3 x 4.1 cm. Cusp to cusp: 4.6 x 4.8 cm, previously 4.7 x 4.4 cm. Sinotubular junction: 4.3 x 4.3 symmetric, previously 4.3 x 4.1 cm. Maximum dimension of the ascending aorta at the level of the right main pulmonary artery: 4.8 x 4.6 cm, previously 4.7 x 4.7 cm Aortic arch: 4.1 x 3.9 cm, previously 4.1 x 3.9 cm. Descending thoracic aorta at the level of the left atrium: 3.3 x 3.2 cm, previously 3.[address] scan:today COMPARISON: 08/04/2022 FINDINGS: There is dilation of the ascending thoracic aorta, with measurements as described below. Heart size is normal without pericardial effusion. Main pulmonary artery is normal in caliber. Moderate three-vessel coronary artery calcifications. Mild aortic valve calcifications. Aortic measurements: Sinuses of valsalva (cusp to commissure, mildly limited due to motion): 36 x 41 x 41 mm, previously 43 x 45 x 39 mm Sinotubular junction: 38 x 39 mm, previously 43 x 43 mm Ascending aorta: 41 x 43 mm, previously 40 x 46 mm Mid arch: 39 x 39 mm, previously 41 x 39 Descending aorta: 31 x 32 mm, previously 33 x 32 mm Non vascular findings: No thoracic lymphadenopathy. Mild bilateral gynecomastia. Central airways are patent. Small hiatal hernia. Mild paraseptal emphysema. Mild bibasilar atelectasis. No suspicious pulmonary nodule. No pleural effusion or pneumothorax. Imaged portions of the upper abdomen show changes of cholecystectomy and colonic diverticulosis without evidence of diverticulitis. Multilevel degenerative changes noted in the thoracolumbar spine with decreased bone mineralization in the lower thoracic spine. IMPRESSION: Dilation of the aortic root and ascending thoracic aorta measuring up to 43 mm, which measure less compared to prior examination, however this scan is less affected by motion compared to the prior, likely accounting for the differences in measurements. Assessment and plan Mr. Clem Capellan is a pleasant 73-year-old gentleman with a known ascending aortic aneurysm. His imaging today demonstrates stability in his aortic measurements. His ascending aorta measures 4.3 cm. He is asymptomatic. He is nicely controlled blood pressure. Our recommendation would be continue maldonado rveillance with imaging. We will schedule him to return to the aortic center in 1 year's time. He has no activity restrictions. In the interim, he may call our office with any questions or concerns With my best regards, Tameka Mixon, MSN,ANP- Adult Nurse Practitioner [facility] Division of Cardiothoracic Surgery Cosigned by Eusebia Coleman MD at 04/25/2024 10:30 AM CDT documented in this encounter Plan of Treatment Not on file documented as of this encounter Visit Diagnoses Diagnosis Aneurysm of ascending aorta without rupture (HCC)- Primary documented in this encounter Care Teams Professor Of Journalism Relationship Specialty Start Date End Date Corey Angel MD [address] [facility] [address] [facility] [address] [place] [id number] PCP - General Internal Medicine 06/18/21 documented as of this encounter
--- OUTSIDE RECORDS SUMMARY | 2024-09-30 09:21 | XMS_ITS | Encounter Summary ---
Author Organization [facility] Address [address] [place] [address] Phone Care Team Providers Care Melting Supervisor Name Role Phone Corey Angel MD Primary Care Provider [phone] Reason for Referral * MRI/CAT/PET Scan (Routine) - Closed Specialty Diagnoses / Procedures Referred By Contac t Referred To Contact Radiology Diagnoses Aneurysm of ascending aorta without rupture (HCC) Procedures CTA Chest W Contrast Eusebia Coleman MD [address] [facility] [address] [place] [address] Phone: tel: fax: [address] [address] Referral ID Status Reason Start Date Expiration Date Visits Re quested Visits Authorized [id number] Closed 04/18/2024 06/17/2024 1 1 Encounter Details Date Type Department Care Team (Late st Contact Info) Description 02/23/2024 Orders Only [facility] Cardiothoracic Surgery [address] [facility] Advanced Medicine 8th Floor [address] Room [address] [address] Eusebia Coleman MD [address] [facility] [address] [place] [address] Aneurysm of ascending aorta without rupture (HCC) (Primary Dx) Social History Tobacco Use Types Packs/Day Years Used Date Smoking Tobacco: Never Smokeless Tobacco: Never Alcohol Use Standard Drinks/Week Comments No 0 (1 standard drink = 0.6 oz pur e alcohol) AUDIT-C Answer Date Recorded Q1: How often do you have a drink containing alcohol? Never 12/20/2023 Q2: How many drinks containi ng alcohol do you have on a typical day when you are drinking? 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 Gender Identity Male 05/22/2018 10:57 AM CDT Sexual Orientation Straight 11/03/2020 7: 01 PM CAR COUPLER Occupation Industry Job Start Date Job End Date working Not on file Not on file Not on file documented as of this encounter Plan of Treatment Not on file documented as of this encounter Results * CTA Chest W Contrast (04/18/2024 9:44 AM CDT) Anatomical Region Laterality Modality Chest N/A Computed Tomogra phy 04/18/2024 11:1 8 AM CDT Impressions 04/18/2024 11:19 AM CDT Dilation of the aortic root and ascending thoracic aorta measuring up to 43 mm, which measure less compared to prior examination, however this scan is less affected by motion compared to the prior, likely accounting for the differences in measurements. Dictated by: Ishan Payne MD The radiology attending physician has personally reviewed this study, and had reviewed and/or edited this written report and agrees with it. Electronically signed by: Shamika Anne M.D. Narrative 04/18/2024 11:19 AM CDT EXAMINATION: CTA CHEST W CONTRAST HISTORY: ??Thoracic aortic aneurysm follow-up TECHNIQUE: ??Transaxial computed tomographic images of the chest were obtained with intravenous contrast according to angiographic protocol after the uneventful administration of 100 ??mL of Opti-Ray 350 intravenous contrast. Images were transferred to an independent workstation for additional 3D post-processing. COMPARISON: 08/04/2022 FINDINGS: There is dilation of the ascending thoracic aorta, with measurements as described below. ??Heart size is normal without pericardial effusion. ??Main pulmonary artery is normal in caliber. ??Moderate three-vessel coronary artery calcifications. ??Mild aortic valve calcifications. Aortic measurements: Sinuses of [...] mm Non vascular findings: No thoracic lymphadenopathy. ??Mild bilateral gynecomastia. ??Central airways are patent. ??Small hiatal hernia. Mild paraseptal emphysema. ??Mild bibasilar atelectasis. ??No suspicious pulmonary nodule. ??No pleural effusion or pneumothorax. Imaged portions of the upper abdomen show changes of cholecystectomy and colonic diverticulosis without evidence of diverticulitis. Multilevel degenerative changes noted in the thoracolumbar spine with decreased bone mineralization in the lower thoracic spine. ?? Procedure Note Shamika Anne MD - 04/18/2024 EXAMINATION: CTA CHEST W CONTRAST HISTORY: Thoracic aortic aneurysm follow-up TECHNIQUE: Transaxial computed tomographic images of the chest were obtained with intravenous contrast according to angiographic protocol after the uneventful administration of 100 mL of Opti-Ray 350 intravenous contrast. Images were transferred to an independent workstation for additional 3D post-processing. COMPARISON: 08/04/2022 FINDINGS: There is dilation of [...] likely accounting for the differences in measurements. Dictated by: Ishan Payne MD The radiology attending physician has personally reviewed this study, and had reviewed and/or edited this written report and agrees with it. Electronically signed by: Shamika Anne M.D. Eusebia Coleman MD IMG CT PROCEDURES Final Result documented in this encounter Visit Diagnoses Diagnosis Aneurysm of ascending aorta without rupture (HCC)- Primary Aneurysm of ascending aorta without rupture (HCC) documented in this encounter Care Teams Melting Supervisor Relationship Specialty Start Date End Date Corey Angel MD [address] [facility] [address] [place], [place] [id number] PCP - General Internal Medicine 06/18/21 documented as of this encounter
--- OUTSIDE RECORDS SUMMARY | 2024-09-30 09:21 | XMS_ITS | Encounter Summary ---
Author Organization [facility] Address [address] [place] [address] Phone Care Team Providers Care Supervisor Toy Assembly Name Role Phone Corey Angel MD Primary Care Provider [phone] Encounter Details Date Type Department Care Team (Late st Contact Info) Description 04/20/2024 Orders Only [place] [facility] - [facility] Urology [address] [facility] Advanced Medicine 11th [place] [address] [place] [address] Clem Thomson MD [address] [facility] [id number] [place] [address] Social History Tobacco Use Types Packs/Day Years [...] on file Legal Sex Male 2:49 AM MAITRE D' Gender Identity Male 05/22/2018 10:57 AM CDT Sexual Orientation Straight 11/03/2020 7: 01 PM MAITRE D' Occupation Industry Job Start Date Job End Date working Not on file Not on file Not on file documented as of this encounter Ordered Prescriptions Prescription Sig Dispense Quantity Refills Last Filled Start Date End Date tamsulosin (FLOMAX) 0.4 mg extended release capsule Take 1 capsule (0.4 mg total) by mouth daily 30 capsule 11 04/20/2024 documented in this encounter Plan of Treatment Not on file documented as of this encounter Visit Diagnoses Not on filedocumented in this encounter Care Teams Supervisor Toy Assembly Relationship Specialty Start Date End Date Corey Angel MD [address] [place] [place] [address] PCP - General Internal Medicine 06/18/21 documented as of this encounter
--- OUTSIDE RECORDS SUMMARY | 2024-09-30 09:21 | XMS_ITS | Encounter Summary ---
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 Gender Identity Male 05/22/2018 10:57 AM CDT Sexual Orientation Straight 11/03/2020 7: 01 PM CREDIT INTERVIEWER Occupation Industry Job Start Date Job End Date working Not on file Not on file Not on file documented as of this encounter Miscellaneous Notes * Telephone Encounter - Tana Elizondo - 05/29/2024 2:33 PM CDT Called patient and relayed information regarding precert and marking auth as no longer needed * Telephone Encounter - Katrina Purvis CMA - 05/29/2024 1:30 PM CDT Date: 05/29/2024 Reason for Call: patient called to let Tana know that the PET scan scheduled for 05/30 at 2pm at [facility]. Pre-Cert: Patient does need the request we submitted to be withdrawn for the PET scan authorization please Patient Provider: Medical/Surgical Information: Outcome/Plan: documented in this encounter Plan of Treatment Not on file documented as of this encounter Visit Diagnoses Not on filedocumented in this encounter Care Teams Trenching Machine Operator Relationship Specialty Start Date End Date Corey Angel MD [address] [facility] [address] [place] [address] PCP - General Internal Medicine 06/18/21 documented as of this encounter
--- OUTSIDE RECORDS SUMMARY | 2024-09-30 09:21 | XMS_ITS | Encounter Summary ---
Author Organization [facility] Address [address] [place] [address] Care Team Providers Care Clean Room Technician Name Role Phone Corey Angel MD Primary Care Provider [phone] Clem Thomson MD Unavailable [phone] Harman Morales MD Unavailable [phone] Reason for Referral * MRI/CAT/PET Scan (Routine) - Closed Specialty Diagnoses / Procedures Referred By Contac t Referred To Contact Radiology Diagnoses Prostate cancer (HCC) Procedures MRI Pelvis W WO Contrast Harman Morales MD [address] [place], [place] [address] Phone: tel: fax: [address] [address] Referral ID Status Reason Start Date Expiration Date Visits Re quested Visits Authorized [id number] Closed 07/02/2024 08/31/2024 1 1 Reason for Visit * MRI/CAT/PET Scan (Routine) - Closed Specialty Diagnoses / Procedures Referred By Contac t Referred To Contact Radiology Diagnoses Prostate cancer (HCC) Procedures MRI Pelvis W WO Contrast Harman Morales MD [address] [place] [address] Phone: tel: fax: [address] [address] Referral ID Status Reason Start Date Expiration Date Visits Re quested Visits Authorized [id number] Closed 07/02/2024 08/31/2024 1 1 Encounter Details Date Type Department Care Team (Latest Contact Info) Description 07/02/2024 2:17 PM CDT - 07/02/2024 11:59 PM CDT Hospital Encounter [facility] [address] [place] [address] Prostate cancer (HCC) Discharge Disposition: Discharge to [...] on file Legal Sex Male 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 Gender Identity Male 05/22/2018 10:57 AM CDT Sexual Orientation Straight 11/03/2020 7: 01 PM STAVE CUTTING SUPERVISOR Occupation Industry Job Start Date Job [...] mg total) by mouth daily 30 capsule 04/20/2024 traZODone (DESYREL) 50 mg tablet Take [...] Procedure Name Priority Date/Time Associated Diagnosis Comments MRI PELVIS W WO CONTRAST Schedule Routine, Read Routine (OP Routine) 07/02/2024 3:47 PM CDT Prostate cancer (HCC) documented in this encounter Results * MRI Pelvis W WO Contrast (07/02/2024 [...] D: ??07/04/2024 1:17 PM T: Report ID: [id number] Reading Location: ??[id number] Procedure Note Koffi Cormier DO - 07/04/2024 EXAM DESCRIPTION: MRI PELVIS [...] History of prostate biopsyon 04/30/2024 with a [place] score of 7. correlated with recent clinic notesand biopsy results if available. FINDINGS: PROSTATE: Size: 4.1 x 4.7 x 4.2 cm. Volume: 42.38 cc.PSA: 10 Ng/mL. PSA density: 0.24 Ng/ml/cc. TRANSITIONAL ZONE: There are multiple small nodules of varying [id number] with T2 hypointense rims as seen with [...] 1:17 PM - Electronically signed by Koffi Russo.O. PS T: Report ID: [id number] Reading Location: [id number] Harman Morales MD IM MRI PROCEDURES Final Resul t documented in this encounter Visit Diagnoses Diagnosis Prostate cancer (HCC) Malignant neoplasm of prostate documented in this encounter Administered Medications Inactive Administered Medications - up to 3 most recent administrations Medication Order MAR Action Action Date Dose Rate Site gadoterate meglumine injection 20 mL 20 mL, intravenous, Once in imaging, contrast, Starting on 07/02/24 at 1447, For 1 dose Contrast Given 07/02/2024 2:48 PM CDT 20 mL gadoterate meglumine injection 20 mL 20 mL, intravenous, Once in imaging, contrast, Starting on Tue07/02/24 at 1548, For 1 dose Contrast Given 07/02/2024 3:48 PM CDT 20 mL documented in this encounter Orders Medications Ordered That Gumaro ht Not Have Been Administered Count Last Ordered Date First Ordered Date gadoterate meglumine injection 20 mL 1 03/2024 documented in this encounter Care Teams Clean Room Technician Relationship Specialty Start Date End Date Corey Angel MD [address] [facility] [address] [place] [address] PCP - General Internal Medicine 06/18/21 Clem Thomson MD [address] [facility] [address] [place] [address] Referring Physician Urology 06/14/24 Harman Morales MD [address] [facility] [address] [place] [address] Radiation Oncologist Radiation Oncology 06/22/24 documented as of this encounter
--- OUTSIDE RECORDS SUMMARY | 2024-09-30 09:21 | XMS_ITS | Encounter Summary ---
Author Organization [facility] Healthcare Address [address] [place] [address] Care Team Providers Care Automation Qa Analyst Name Role Phone Corey Angel MD Primary Care Provider [phone] Clem Thomson MD Unavailable [phone] Harman Morales MD Unavailable [phone] Reason for Referral * Consultation (Routine) - Authorized Specialty Diagnoses / Procedures Referred By Contac t Referred To Contact Oncology Diagnoses Prostate cancer (HCC) Harman Morales MD [address] [facility] [address] [place] [address] Phone: tel: fax: [facility] Oncology [address] [place] [address] [address] [place] [address] Phone: tel: fax: Referral ID Status Reason Start Date Expiration Date Visits Requested Visits Authorized [id number] Authorized Specialty Services Required 4 08/10/2025 99 99 Question Answer Please select the performing region: [facility] (All Locations) [[id number]] Please select the performing department: [facility] IM ONC MHE2 [id number] [[id number]] Is this referral for Breast [facility]? No Does the patient have a diagnosis of a Head and Neck cancer? No # of visits: 1 Comments Recently diagnosed high risk prostate cancer. Consider abiraterone. 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 Gender Identity Male 05/22/2018 10:57 AM CDT Sexual Orientation Straight 11/03/2020 7: 01 PM QUALITY TESTER Occupation Industry Job Start Date Job End Date working Not on file Not on file Not on file documented as of this encounter Last Filed Vital Signs Vital Sign Reading Time Taken Comments Blood Pressure 137/95 07/11/2024 1:07 PM CDT Pulse 80 07/11/2024 1:07 PM CDT Temperature - - Respiratory Rate - - Oxygen Saturation 99% 07/11/2024 1:07 PM CDT Inhaled Oxygen Concentration - - Weight - - Height - - Body Mass Index - - documented in this encounter Progress Notes * Harman Morales MD - 07/11/2024 1:00 PM CDT Radiation Oncologist: Harman Morales MD Primary Care Physician: Corey Angel MD Medical Oncologist: No care steam turbine assembler to display Surgeon: No care steam turbine assembler to display Date of Service: 07/11/2024 RADIATION ONCOLOGY FOLLOW UP NOTE IDENTIFYING DATA: [...] cancer; his last visit with us was in consultation earlier this month. Since that visit, he has had 07/02/24 MRI pelvis. This demonstrated a PIRADS5 lesion of the posterior bilateral PZ at the base, involving TZs, with EPE and extension into the bilateral SV, R>L. No adenopathy was seen. Mr. Capellan denies any new difficulties. PAST MEDICAL, SURGICAL, FAMILY, AND SOCIAL HISTORY History Last Reviewed by Dionicio Canela RN on 07/11/2024 at 1:07 PM Sections Reviewed Medical, Surgical, Family, Drug Use, Sexual Activity, Social Documentation ALLERGIES: Allergies as of 07/11/2024 Reviewed by Berlin Bradshaw RT on 07/02/2024 No Known Allergies MEDICATIONS: Review Info User Date and Time DIONICIO CANELA RN [[id number]] 07/11/2024 1:07 PM REVIEW OF SYSTEM Except for the symptoms described above, the remainder of the review of systems is negative. Specifically, except as noted, when asked the patient expressed no complaints relative to constitutional (fever, weight loss), eyes, ears, nose, mouth, throat, neurologic, cardiovascular, pulmonary, breast,GI, , skin, musculoskeletal, endocrine, hematologic/lymphatic, or immunologic systems. PHYSICAL EXAMINATION: BP 137/95 Pulse 80 SpO2 99% Pain Score and Location 07/11/24 1307 PainSc: 0-No pain General: No acute distress. [...] reviewed the laboratory and pathology values below: 07/02/24 MRI pelvis PSAs: 02/24/21 5.7 08/09/22 6.2 12/03/23 9.1 06/15/24 10.00 ASSESSMENT/PLAN: 73 y.o.male with high risk prostate ca with bilateral SV invasion I have recommended a course of radiation therapy with LTADT. Benefits, risks, and side effects of radiation therapy were discussed, including but not limited toskin irritation, fatigue, urinary hesitancy, urgency, frequency, radiation cystitis, proctitis, anderectile dysfunction. All of his questions and concerns were addressed. Benefits, risks, and side effects of androgen deprivation were discussed. These include, but are not limited to, fatigue, hot flashes, weight gain, decreased libido, erectile dysfunction, and mood swings. All of his questions and concerns were addressed. He would like to proceed. Leuprolide today. Fiducial marker placement without hydrogel placement. CT simulation shortly thereafter. I will also refer him for consideration of abiraterone given very high risk disease. RAD ONC PAIN PLAN: The patient is not currently having any pain that requires changes in pain management. DISEASE STATUS: Disease Status: Controlled New metachronous cancer?: No My total encounter time on 07/11/2024 was 25 minutes which was spent in the activities documented in the note. This includes time spent prior to the visit and after the visit in direct care of the patient. This time does not include time spent in any separately reportable services. Harman Morales MD documented in this encounter Plan of Treatment Scheduled Referrals Name Type Priority Associated Diagnoses Order Schedule Ambulatory referral to Oncology Outpatient Referral Routine Prostate cancer (HCC) Expected: 07/25/2024 (Approximate), Expires: 07/11/2025 documented as of this encounter Visit Diagnoses Diagnosis Prostate cancer (HCC)- Primary Malignant neoplasm of prostate documented in this encounter Historical Medications * This list may reflect changes made after this encounter. traZODone (DESYREL) 50 mg tablet Take 1 tablet (50 mg total) by mouth nightly 06/18/2024 added in this encounter Care Teams Automation Qa Analyst Relationship Specialty Start Date End Date Corey Angel MD [address] [facility] [address] [place] [address] PCP - General Internal Medicine 06/18/21 Clem Thomson MD [address] [facility] [address] [facility] [place] [address] Referring Physician Urology 06/14/24 Harman Morales MD [address] [place] [address] Radiation Oncologist Radiation Oncology 06/22/24 documented as of this encounter
--- OUTSIDE RECORDS SUMMARY | 2024-09-30 09:21 | XMS_ITS | Encounter Summary ---
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 Gender Identity Male 05/22/2018 10:57 AM CDT Sexual Orientation Straight 11/03/2020 7: 01 PM REGIONAL PROJECT MANAGER Occupation Industry Job Start Date Job End Date working Not on file Not on file Not on file documented as of this encounter Plan of Treatment Not on file documented as of this encounter Visit Diagnoses Diagnosis Elevated PSA- Primary Elevated prostate specific antigen (PSA) Prostate cancer (HCC) Malignant neoplasm of prostate documented in this encounter Care Teams Shells Inspector Relationship Specialty Start Date End Date Corey Angel MD [address] [facility] [address] [place] [address] PCP - General Internal Medicine 06/18/21 Jhonson Falcon MD [address] [facility] [address] [place] [address] Radiation Oncologist Radiation Oncology 06/14/24 Clem Thomson MD [address] [facility] [address] [place] [address] Referring Physician Urology 06/14/24 documented as of this encounter
--- OUTSIDE RECORDS SUMMARY | 2024-09-30 09:21 | XMS_ITS | Encounter Summary ---
Author Organization [facility] Address [address] [place] [address] Phone Care Team Providers Care Skiver Box Toe Name Role Phone Corey Angel MD Primary Care Provider [phone] Reason for Referral * MRI/CAT/PET Scan (Routine) - Closed Specialty Diagnoses / Procedures Referred By Contac t Referred To Contact Radiology Diagnoses Prostate cancer (HCC) Procedures PET/CT Prostate Cancer PSMA Skull to Thigh Clem Thomson MD [address] [place] [address] Phone: tel: fax: [address] [address] Referral ID Status Reason Start Date Expiration Date Visits Re quested Visits Authorized [id number] Closed 05/29/2024 07/28/2024 2 2 Encounter Details Date Type Department Care Team (Late st Contact Info) Description 05/02/2024 Orders Only [facility] ([facility]) - 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 Gender Identity Male 05/22/2018 10:57 AM CDT Sexual Orientation Straight 11/03/2020 7: 01 PM DIRECTOR OF MARKET ANALYSIS Occupation Industry Job Start Date Job End Date working Not on file Not on file Not on file documented as of this encounter Plan of Treatment Scheduled Orders Name Type Priority Associated Diagnoses Orde r Schedule PET/CT Prostate Cancer PSMA Skull to Thigh Imaging Schedule Routine, Read Routine (OP Routine) Prostate cancer (HCC) Expected: 05/02/2024, Expires: 05/02/2025 documented as of this encounter Visit Diagnoses Diagnosis Prostate cancer (HCC)- Primary Malignant neoplasm of prostate documented in this encounter Care Teams Skiver Box Toe Relationship Specialty Start Date End Date Corey Angel MD [address] [facility] [address] [facility] [address] [place] [address] PCP - General Internal Medicine 06/18/21 documented as of this encounter
--- OUTSIDE RECORDS SUMMARY | 2024-09-30 09:21 | XMS_ITS | Encounter Summary ---
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 - 06/14/2024 3:03 PM CDTAddended by: KARRIE MOORE on: 06/15/2024 03:03 PM Modules accepted: Orders documented in this encounter Plan of Treatment Not on file documented as of this encounter Results * (ABNORMAL) PSA diagnostic (06/15/2024 3:04 PM [...] LAB BLOOD ORDERABLES Final Result SHILPA [facility] [address] [address] [facility] [employer] [place] [address] * (ABNORMAL) Total testosterone (06/15/2024 3:04 PM CDT) Pathologist [facility] Testosterone 101(L) 193 - 740 ng/dL Blood 06/15/2024 3:04 PM CDT 06/15/2024 8:15 PM CDT Johnson Falcon MD LAB BLOOD ORDERABLES Final Result Performing Organization Address City/[facility] de Phone Number SHILPA BR[place]TON [address] [address] [employer] [place] [address] * (ABNORMAL) CBC with auto differential (06/15/2024 3:04 PM CDT) [facility] WBC 6.8 3.8 - 9.9 K/cumm Hgb 13.3 13.0 - 17.5 g/dL [facility] Hct 41.6 38.9 - 50.3 % [facility] Plt 191 150 - 400 K/cumm [facility] MPV 11.8 9.1 - 12.3 fL [facility] RBC 4.58 4.30 - 5.80 M/cumm [facility] MCV 90.8 81.3 - 96.4 fL [facility] MCH 29.0 27.1 - 33.3 pg [facility] MCHC 32.0(L) 32.3 - 35.7 g/dL [facility] RDW CV 13.2 11.1 - 14.9 % [facility] CH RDW SD 43.8 35.7 - 48.1 fL [facility] NRBC abs 0.00 0.00 - 0.01 K/cumm [facility] CH Blood 06/15/2024 3:04 PM CDT 06/15/2024 8:15 PM CDT Johnson Falcon MD LAB BLOOD ORDERABLES Final Result SHILPA [address] [address] [place] [address] * (ABNORMAL) Comprehensive metabolic panel [...] classification and Diagnosis of Diabetes Diabetes Care 202; 46: S19-S40. Current interpretive data was last [...] LAB BLOOD ORDERABLES Final Result SHILPA BRITTON [address] [place] [address] documented in this encounter Visit Diagnoses Diagnosis Prostate cancer (HCC)- Primary Malignant neoplasm of prostate documented in this encounter Care Teams Soil Conservation Aide Relationship Specialty Start Date End Date Corey Angel MD [address] [place] [address] PCP - General Internal Medicine 06/18/21 Johnson Falcon MD [address] [facility] [address] [place] [address] Radiation Oncologist Radiation Oncology 06/14/24 Clem Thomson MD [address] [facility] [address] [place] [address] Referring Physician Urology 06/14/24 documented as of this encounter
--- OUTSIDE RECORDS SUMMARY | 2024-09-30 09:21 | XMS_ITS | Encounter Summary ---
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 Thomson. Patient Provider: [facility] Information: Outcome/Plan: documented in this encounter Plan of Treatment Not on file documented as of this encounter Visit Diagnoses Not on filedocumented in this encounter Care Teams Charcoal Kiln Burner Relationship Specialty Start Date End Date Corey Angel MD [address] [facility] [address] [place] [address] PCP - General Internal Medicine 06/18/21 documented as of this encounter
--- OUTSIDE RECORDS SUMMARY | 2024-09-30 09:21 | XMS_ITS | Encounter Summary ---
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 Called patient, he will call radiology to schedule pet scan, appt scheduled with [facility] at [facility], he wants to go ahead and proceed with scheduling surgery. Will try to schedule 06/25/24, case sent to scheduling, case scheduled, letter sent, pt to call to schedule psma pet scan documented in this encounter Plan of Treatment Not on file documented as of this encounter Visit Diagnoses Not on filedocumented in this encounter Care Teams Project Associate Relationship Specialty Start Date End Date Corey Angel MD [address] [facility] [address] [place] [address] PCP - General Internal Medicine 06/18/21 documented as of this encounter
--- OUTSIDE RECORDS SUMMARY | 2024-09-30 09:21 | XMS_ITS | Encounter Summary ---
Author Organization [facility] Healthcare Address [address] [place] [address] Care Team Providers Care Geological Sample Tester Name Role Phone Corey Angel MD Primary Care Provider [phone] Reason for Referral * MRI/CAT/PET Scan (Routine) - Closed Specialty Diagnoses / Procedures Referred By Contac t Referred To Contact Radiology Diagnoses Aneurysm of ascending aorta without rupture (HCC) Procedures CTA Chest W Contrast Eusebia Coleman MD [address] [facility] [address] [place] [address] Phone: tel: fax: [place] [address] [address] [address] Referral ID Status Reason Start Date Expiration Date Visits Re quested Visits Authorized [id number] Closed 04/18/2024 06/17/2024 1 1 Reason for Visit * MRI/CAT/PET Scan (Routine) - Closed Specialty Diagnoses / Procedures Referred By Contac t Referred To Contact Radiology Diagnoses Aneurysm of ascending aorta without rupture (HCC) Procedures CTA Chest W Contrast Eusebia Coleman MD [address] [facility] [address] [place] [address] Phone: tel: fax: [place] [address] [address] [address] Referral ID Status Reason Start Date Expiration Date Visits Re quested Visits Authorized [id number] Closed 04/18/2024 06/17/2024 1 1 Encounter Details Date Type Department Care Team (Latest Contact Info) Description 04/18/2024 9:29 AM CDT - 04/18/2024 11:59 PM CDT Hospital Encounter [facility] Imaging [address] [address] Aneurysm of ascending aorta without rupture (HCC) Discharge Disposition: Discharge to home or [...] on file Legal Sex Male 2:49 AM ARCHITECT INTERN Gender Identity Male 05/22/2018 10:57 AM CDT Sexual Orientation Straight 11/03/2020 7: 01 PM ARCHITECT INTERN Occupation Industry Job Start Date Job End [...] (20 mg total) by mouth nightly 04/21/2021 LORazepam (ATIVAN) 0.5 mg tabletIndication s:anxiety Take [...] Procedure Name Priority Date/Time Associated Diagnosis Comments POC ISTAT Routine 04/18/2024 9:45 AM CDT CTA CHEST W CONTRAST Schedule Routine, Read Routine (OP Routine) 04/18/2024 9:44 AM CDT Aneurysm of ascending aorta without rupture (HCC) documented in this encounter Results * POC ISTAT (04/18/2024 9:45 AM CDT) Creatinine, POC, bld 0.8 0.6 - 1.3 mg/dL POC Device Number [id number] SHILPA VIEIRA POC Performer [id number] SHILPA CALI Blood 04/18/2024 9:45 AM CDT 04/18/2024 9:45 AM CDT us Eusebia Coleman MD LAB BLOOD ORDERABLES Final Resul t AMETONI SONGW[facility] [address] [facility]. [place] [address] * CTA Chest W Contrast (04/18/2024 9:44 [...] by: Shamika Anne M.D. Eusebia Coleman MD IM CT PROCEDURES Final Result documented in this encounter Visit Diagnoses Diagnosis Aneurysm of ascending aorta without rupture (HCC) documented in this encounter Administered Medications Inactive Administered Medications - up to 3 most recent administrations Medication Order MAR Action Action Date Dose Rate Site ioversoL (OPTIRAY 350) injection 0.01-500 mL 0.01-500 mL, intravenous, Once in imaging, contrast, Starting on Tue04/18/24 at 0938, For 1 dose Contrast Given 04/18/2024 9:46 AM CDT 100 mL documented in this encounter Orders Medications Ordered That Gumaro ht Not Have Been Administered Count Last Ordered Date First Ordered Date ioversoL (OPTIRAY 350) injec tion 0.01-500 mL 1 04/18/2024 documented in this encounter Care Teams Geological Sample Tester Relationship Specialty Start Date End Date Corey Angel MD [address] [place] [address] PCP - General Internal Medicine 06/18/21 documented as of this encounter
--- OUTSIDE RECORDS SUMMARY | 2024-09-30 09:21 | XMS_ITS | Encounter Summary ---
Author Organization [facility] Healthcare Address [address] [place] [address] Care Team Providers Care Continuous Pillowcase Cutter Name Role Phone Corey Angel MD Primary Care Provider [phone] Clem Thomson MD Unavailable [phone] Harman Morales MD Unavailable [phone] Reason for Referral * MRI/CAT/PET Scan (Routine) - Closed Specialty Diagnoses / Procedures Referred By Contac t Referred To Contact Radiology Diagnoses Prostate cancer (HCC) Procedures MRI Pelvis W WO Contrast Harman Morales MD [address] [place] [address] Phone: tel: fax: [address] [address] Referral ID Status Reason Start Date Expiration Date Visits Re quested Visits Authorized [id number] Closed 07/02/2024 08/31/2024 1 1 Reason for Visit * Reason Comments Consult * Consultation (Routine) - Closed Specialty Diagnoses / Procedures Referred By Contac t Referred To Contact Radiation Oncology Diagnoses Prostate cancer (HCC) Clem Thomson MD [address] [facility] # [id number] [place] [address] Phone: tel: fax: [facility] Radiation Oncology [address] [facility] [place] [address] Phone: tel: fax: Referral ID Status Reason Start Date Expiration Date V isits Requested Visits Authorized [id number] Closed Specialty Services Required 06/12/2024 07/15/2024 1 1 Encounter Details Date Type Department Care Team ([facility] st Contact Info) Description 06/28/2024 1:00 PM CDT Consult 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 Occupation Industry Job Start Date Job End Date working Not on file Not on file Not on file documented as of this encounter Last Filed Vital Signs Vital Sign Reading Time Taken Comments Blood Pressure 155/87 06/28/2024 12:52 PM CDT Pulse 64 06/28/2024 12:52 PM CDT Temperature - - Respiratory Rate - - Oxygen Saturation 99% 06/28/2024 12:52 PM CDT Inhaled Oxygen Concentration - - Weight 116.6 kg (257 lb) 06/28/2024 12:52 PM CDT Height - - Body Mass Index 34.86 04/30/2024 9:36 AM CDT documented in this encounter Consult Notes * Harman Morales MD - 06/28/2024 1:00 PM CDT Radiation Oncologist: Harman Morales MD Primary Care Physician: Corey Angel MD Medical Oncologist: No care steam box tender to display Surgeon: No care steam box tender to display Referring Provider: Clem Thomson MD Date of Service: 06/28/2024 RADIATION ONCOLOGY CONSULT NOTE IDENTIFYING DATA: Cancer Staging Prostate cancer (HCC) Staging form: Prostate, AJCC 8th Edition - Clinical stage from 06/28/2024: Stage IIIB (cT3b, cN0, cM0, PSA: 9.1, Grade Group: 2) - Signed by Harman Morales MD on 06/28/2024 Clem Capellan presents today for consultative evaluation and definitive treatment recommendations in regard to his diagnosis of high risk prostate cancer HISTORY OF PRESENT ILLNESS: Clem Capellan is a pleasant 73 y.o. male seen at the request of Clem Thomson MD for his recently diagnosed high risk prostate cancer. PSA history as follows: 02/24/21 5.7 08/09/22 6.2 12/03/23 9.1 06/15/24 10.00 04/30/24 prostate biopsy was performed. Pathology demonstrated maximal GS 3+4 disease, with 8/11 cores involved. PNI was seen. 06/13/24 PSMA PET was performed. This demonstrated uptake in the posterior prostate, with suggestionof invasion into the bilateral SV. No britney or distant disease was seen. Mr. Capellan feels well. No pain, dysuria, hematuria. No difficulties with bowel movements. Taking Flomax 0.4mg daily. Reports LUTS as follows: AUA Over the past month, how often have you had a sensation of not emptying your bladder completely after you finished urinating?: 2 During the last month or so, how often have you had to urinate again less than two hours after you finished urinating?: 3 Over the past month, how often have you found you stopped and started again several times when you urinated?: 0 Over the past month, how often have you found it difficult to postpone urination?: 0 Over the past month, how often have you had a weak urinary stream?: 1 Over the past month, how often have you pushed or strained to begin urination?: 1 How many times did you typically get up to urinate from the time you went to bed at night until thetime you get up in the morning?: 1 AUA Total: 8 Prostate Quality of Life How would you feel if you had to live with your urinary condition the way it is now, no better, no worse, for the rest of your life?: 0 Sexual Quality of Life PAST MEDICAL, SURGICAL, FAMILY, AND SOCIAL HISTORY History Last Reviewed by Dionicio Canela RN on 06/28/2024 at 12:52 PM Sections Reviewed Tobacco ALLERGIES: Allergies as of 06/28/2024 Reviewed by Dionicio Canela RN on 06/28/2024 No Known Allergies MEDICATIONS: Review Info User Date and Time DIONICIO CANELA RN [[id number]] 06/28/2024 12:52 PM REVIEW OF SYSTEM Except for the symptoms described above, the remainder of the review of systems is negative. Specifically, except as noted, when asked the patient expressed no complaints relative to constitutional (fever, weight loss), eyes, ears, nose, mouth, throat, neurologic, cardiovascular, pulmonary, breast,GI, , skin, musculoskeletal, endocrine, hematologic/lymphatic, or immunologic systems. RADIATION SCREENING QUESTIONS Prior radiation therapy: No Pacemaker: No Other implantable devices: No Connective tissue disease: No PHYSICAL EXAMINATION: BP 155/87 Pulse 64 Wt 116.6 kg (257 lb) SpO2 99% BMI 34.86 kg/m?? Pain Score and Location 06/28/24 1252 PainSc: 0-No pain General: No acute distress. [...] 5.7 08/09/22 6.2 12/03/23 9.1 06/15/24 10.00 04/30/24 pathology report Imaging per HPI ASSESSMENT/PLAN: 73 y.o.male with at least unfavorable intermediate risk prostate cancer is being seen for definitive radiation therapy I spoke with Clem Capellan about treatment options, including active surveillance, surgery, radiation therapy (both external beam and brachytherapy) and androgen deprivation. We compared pros and cons of each approach. Benefits, risks, and side effects of radiation [...] of his questions and concerns were addressed. I did not recommend active surveillance given the potentially higher risk disease seen on imaging. He relates that Dr. Munoz did not deem him a surgical candidate. There is some concern about possible SV invasion seen on PSMA PET. I will order MRI pelvis to better evaluate the local anatomy. Should there be EPE or SV invasion seen, I would then classify his disease as high risk and would recommend RT with LTADT. Otherwise, we would consider RT with STADT. He voiced understanding. He will return after MRI for final recommendations. RAD ONC PAIN PLAN: The patient is not currently having any pain that requires changes in pain management. My total encounter time on 06/28/2024 was 60 minutes which was spent in the activities documented in the note. This includes time spent prior to the visit and after the visit in direct care of the patient. This time does not include time spent in any separately reportable services. Harman Morales MD documented in this encounter Plan of Treatment Not on file documented as of this encounter Results * MRI Pelvis W [...] of prostate biopsy on 04/30/2024 with a Newport score of 7. ??correlated with recent clinic [...] D: ??07/04/2024 1:17 PM T: Report ID: [id number] Reading Location: ??[id number] Procedure Note Koffi Cormier DO - 07/04/2024 [...] History of prostate biopsyon 04/30/2024 with a Newport score of 7. correlated with recent clinic notesand biopsy results if available. FINDINGS: PROSTATE: Size: 4.1 x 4.7 x 4.2 cm. Volume: 42.38 cc.PSA: 10 Ng/mL. PSA density: 0.24 Ng/ml/cc. TRANSITIONAL ZONE: There are multiple small nodules of varying J4chueschny with T2 hypointense rims as seen with [...] Koffi Cormier D.O. PS T: Report ID: [id number] Reading Location: [id number] Harman Morales MD IMG MRI PROCEDURES Final Resul t documented in this encounter Visit Diagnoses Diagnosis Prostate cancer (HCC) Malignant neoplasm of prostate Prostate cancer (HCC) Malignant neoplasm of prostate documented in this encounter Orders Outpatient Referral Count Last Ordered Date Fir st Ordered Date AMB REFERRAL TO RADIATION ONCOLOGY 1 2023 documented in this encounter Care Teams Continuous Pillowcase Cutter Relationship Specialty Start Date End Date Corey Angel MD [address] [facility] [facility] [place], [place] [id number] PCP - General Internal Medicine 06/18/21 Clem Thomson MD [address] [facility] [address] [place] [address] Referring Physician Urology 06/14/24 Harman Morales MD [address] [facility] [address] [place] [address] Radiation Oncologist Radiation Oncology 06/22/24 documented as of this encounter
--- OUTSIDE RECORDS SUMMARY | 2024-09-30 09:21 | XMS_ITS | Encounter Summary ---
Author Organization [facility] Healthcare Address [address] [place] [address] Care Team Providers Care Electro Mechanic Name Role Phone Corey Angel MD Primary Care Provider [phone] Reason for Visit * Auth/Cert (Routine) Specialty Diagnoses / Procedures Referred By Contac t Referred To Contact Diagnoses Elevated PSA Elevated PSA [R97.20] Procedures NC BX PROSTATE STRTCTC SATURATION SAMPLING IMG GID CHG US GUIDANCE NEEDLE PLACEMENT IMG S&I TRANSPERINEAL EXACT VU GUIDED PROSTATE BIOPSY BIOPSY PROSTATE - ULTRASOUND Referral ID Status Reason Start Date Expiration Date Visits Re quested Visits Authorized [id number] 1 1 Encounter Details Date Type Department Care Team (Late st Contact Info) Description 04/30/2024 11:20 AM CDT - 04/30/2024 12:25 PM CDT Surgery [facility] Operating Room [address] [place] [address] Nallely Thomson MD [address] [facility] # [id number] [place] [address] TRANSPERINEAL EXACT VU GUIDED PROSTATE BIOPSY Surgery Details Date/Time Status Location OR Service Patient Class Case Cl ass Case Type Trauma Case? 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 For urgent matters after 5:00 PM during the week or on weekends or holidays, call [phone] and ask to have the Urology Prepleater Physician paged for you. Follow up: Dr. Thomson will call you with the pathology results. You have received anesthesia, therefore, for the next 24 hours and/or while taking narcotic pain medication; -Do NOT drive a vehicle -Do NOT drink alcohol -Do NOT make important personal or business decisions or sign legal documents. Examples of narcotic pain medication include Percocet, Oxycontin, Marshall, Hydrocodone, and Oxycodone. FAQs (frequently asked questions) [...] physical therapy, we are available to assist: [facility]: [facility] [phone] [place] [phone] [facility] [phone] How are some things that you can [...] given by your doctor or other health home care administrator. documented in this encounter Medications at Time [...] Preoperative Evaluation Record Evaluation type/location: TPAP from [facility] Planned procedure site: [facility] OR Date: 04/26/24 NOTE: This note [...] - current AAA. Pertinent negatives: hypertension ; [place] ; CABG ; valvular heart disease; atrial [...] provided by telephone and electronically sent via [facility]. Patient verbalized understanding of instructions. Blood bank needs for day of procedure: No type and screen needed Pending labs/tests include: None TPAP complete. Preoperative evaluation performed by Gianna Mckenzie NP on 04/26/24 at 12:02 PM . 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 Stress test(s): 3-23 per cards note Stress conclusion: 1. Clinically [...] SURGERY : 04/30/2024 SURGEON: Nallely Thomson MD SENIOR ADVOCATE: Surgeon(s) and Role: Surgeons and Role: * [...] Preoperative Assessment and Planning CPAP Clinic Location: [facility] The night before your surgery: * Do [...] your family. * If having surgery at [facility], you may want to bring a credit card if you want to use our Mobile Pharmacy for your discharge medications. Mobile pharmacy is not available at [facility], the [facility], or the [place] for [facility]. Outpatient Surgery: * You must have a [...] directive Information Provided on Healthcare Directives: No Communication/[place] Needs Communication Needs: Glasses Assistive Devices/DME: Eyeglasses Discharge Planning Type of Residence: Private residence Living Arrangements: Spouse/significant other Support Systems: Spouse/significant other Patient expects to be discharged to:: Private residence [employer] SERVIC[employer] NO ADDITIONAL COMMENTS/ FOLLOW UP * Pre-Procedure [...] remove nail coverings, artificial nails and nail jordanian prior to the day of surgery. You should leave your valuables and any jewelry at home. No metal or piercings are allowed in the operating room. You should bring your insurance card, a photo ID (example: Cardiac Rn's License) and a method of payment for [...] Chart. If you are having [facility] at [facility], please arrive on the day of surgery [...] Remove nail coverings, artificial nails and nail jordanian. Place clean linens on your bed the [...] questions, please call the CPAP Staff at [phone], Tuesday-Tuesday 8am-4:30pm. All patients should read the below section: Information on [facility]: Please view [email or web address] (Patient & Visitor Information) for additional details regarding Advanced Directive forms, AWARE, directions, parking information, lodging, Internet access, dining and more. Information on [facility] or [facility] ([facility]): Please view [email or web address] (Patient and Visitor Information) for parking/directions and more. For MyChart information, to activate account or password recovery, please go to [email or web address] or call [phone] (toll-free: [phone]), Tue- Tuesday 8am-5pm. Information for Suicide Prevention: National Suicide Prevention Lifeline (0-233- 031-GTDX (5289)) or call or text 398. Chat resources: [employer]. Surgery Times: For patients having surgery @ [facility] or [facility] ([facility]), if your surgeon's office has not notified you of your surgery time by NOON THE BUSINESS DAY BEFORE your surgery, please call [phone] and ask for your surgeon's office The [facility] for Preoperative Assessment & Planning (CPAP) does not provide arrival times for the [...] results best viewed via link to PDF [facility] [place] [address] Note to Patients: This report may contain [...] Gender: ??M : ??1950 (Age: 73) Address: ??[address] [place] [id number] Hospital #: ??[id number] Taken:04/30/2024 Received:04/30/2024 Reported: 05/01/2024 Patient Type: [facility] EP SAME Client ?[facility] Service: Surgery Location: Physician(s): ??Ze Larsen M.D. Diagnosis: A. Prostate, right, biopsy: ? - Prostatic adenocarcinoma, Anil score 3+4=7 (5% pattern 4), grade group 2, in two of four core(s), involving 60% of total core tissue ? B. Prostate, left, biopsy: ? - Prostatic adenocarcinoma, [place]le score 3+4=7 (15% pattern 4), grade group [...] ordered molecular analysis. Materials were forwarded to [facility] where the Polaris Biopsy Test test will [...] The [employer]Choice HRD test was performed by [employer] [address] [place] [address]. Microscopic slide review and interpretation for this case was performed at [facility], Department of Surgical Pathology, [address] [facility] [address], [id number], ??[facility], [place] ??[address] ?? CLIA # [id number] The performance characteristics of some immunohistochemical stains, fluorescence in-situ hybridization tests and immunophenotyping by flow cytometry cited in this report (if any) were determined by the Surgical Pathology and Flow Cytometry Departments at [facility] as part of an ongoing quality auditor program and in compliance with federally mandated [...] Surgical Pathology and Flow Cytometry Departments of [facility]. ??It has not been cleared or approved by the U. S. Food and Drug Administration. IMAGES AND SCANNED DOCUMENTS, IF INCLUDED, ONLY VIEWABLE IN PDF VERSION OF REPORT Nallely Thomson MD LAB PATHOLOGY ORDERABLES Final Result PATHOLOGY [facility] [phone] documented in this encounter Visit Diagnoses Diagnosis Elevated PSA Elevated prostate specific antigen (PSA) Elevated PSA Elevated prostate specific antigen (PSA) [...] 11:10 AM CDT 125 mL/hr 125 mL/hr lidocaine (XYLOCAINE) 10 mg/mL (1 %) injection As needed, Starting on Tue04/30/24 at 1030, Intra-Op, Indications: Administration of Local AnesthesiaIndications:Ad ministration of Local Anesthesia Given 04/30/2024 10:30 AM CDT 8 mL Surgical Site documented in this encounter Historical Medications * [...] (BENADRYL) 5 0 mg/mL injection 12.5 mg 1 04/30/2024 famotidine (PEPCID) injection 20 mg 1 04/30 fentaNYL (SUBLIMAZE) preserv ative free injection 25 mcg 04/30/2024 hydrALAZINE (APRESOLINE) injection 5 mg 1 0 04/30/2024 HYDROcodone-acetaminophen (N ORCO) 5-325 mg per tablet 1 tablet 1 04/30/2024 HYDROmorphone (DILAUDID) injection 0.2 mg 1 04/30/2024 HYDROmorphone (DILAUDID) injection 0.4 mg 1 04/30/2024 labetaloL (NORMODYNE,TRANDAT E) injection 5 mg 1 04/30/2024 Lactated Ringer's (LR) infusion 1 lidocaine (PF) (XYLOCAINE) 1 0 mg/mL (1 %) preservative free injection 2-10 mg 1 04/30/2024 meperidine (DEMEROL) preserv ative free injection 12.5 mg 1 04/30/2024 naloxone (NARCAN) 0.4 mg/mL injection 0.04-0.4 mg 1 04/30/2024 ondansetron (ZOFRAN) injection 4 mg 1 04/30 prochlorperazine (COMPAZINE) injection 5 mg 1 04/30/2024 scopolamine patch 72 hour 1 patch 1 024 sodium chloride 0.9% flush 0.5-20 mL 1 01/2024 Discharge Count Last Ordered Date First Orde red Date DISCHARGE PATIENT 1 04/30/2024 documented in this encounter Care Teams Electro Mechanic Relationship Specialty Start Date End Date Corey Angel MD [address] INTERNAL MEDICINE [place] [id number] PCP - General Internal Medicine 06/18/21 documented as of this encounter
--- OUTSIDE RECORDS SUMMARY | 2024-09-30 09:21 | XMS_ITS | Encounter Summary ---
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 PSMA avidity in the posterolateral prostatic segments with potential seminal vesicle extension consistent with prostatic adenocarcinoma. 2. No evidence for local or distant metastatic disease. The findings, conclusions and recommendations within this report do not replace the initial findings, conclusions ??and recommendations made at the facility where the study was performed based upon the imaging and clinical condition at that time. ??Comparison with the prior report and clinical history is necessary. ??The provided images may or may not represent the douglas source data set and thus may contain changes that may lower the accuracy of this second-opinion interpretation. Dictated by: Holli Gordon MD The radiology attending physician has personally reviewed this study, and had reviewed and/or edited this written report and agrees with it. Electronically signed by: DO Roseann Molina 06/13/2024 1:23 PM CDT EXAMINATION: RADIOLOGY CONSULTATION ON OUTSIDE IMAGING STUDY . STUDY INITIALLY PERFORMED: 06/01/2024, images acquired at [facility]. TYPE OF STUDY: PSMA-11 (Gozetotide)-PET/CT. The images available for review consisted of axial attenuation-corrected and uncorrected PET images and axial CT images. The total scanned area was skull base to the proximal thighs. The mean liver SUV (reported for water quality technician purposes) is 5.63. The study was interpreted on the Devunity workstation. The protocol was adequate to address the clinical question. The outside final report was not available at the time of this second opinion interpretation. DATE OF CONSULTATION: 06/13/2024 HISTORY: 73-year-old male with prostatic adenocarcinoma, [place]mont score 3+4 = 7, perineural invasion. ??Elevated PSA 9.10 on 04/30/2024. PSA 6.2 in 2021, PSA 5.7 in 2020. Initial treatment strategy. COMPARISON: None REFERENCE TISSUE MAXIMUM SUVs: ??Parotid gland 13.7; Liver 7.0 ; Blood pool 1.23 Focal PSMA tracer uptake is graded as follows: * ??Faint: above background to blood pool * ??Mild: above blood pool to liver * ??Moderate: above liver to salivary glands * ??Intense: similar to or above salivary glands COMPARISON: None FINDINGS: ?? Prostate/Prostate bed: There is mild PSMA uptake in the posterolateral prostatic segments, representing the primary prostate carcinoma. ??Additionally, there is some suspicious extension of this PSMA avidity along the seminal vesicles. Regional lymph nodes: No abnormal tracer uptake seen. Extra-pelvic lymph nodes: No abnormal tracer uptake seen. Bone: No abnormal tracer uptake seen. Visceral: No abnormal tracer uptake seen. Additional CT findings: Pelvic vascular calcification. Cholecystectomy. ??Aortic aneurysm. ??Aortocoronary and iliac calcifications. ??Left maxillary sinusitis. ??Bilateral gynecomastia. Bilateral lower lobe mild paraseptal emphysema. Demineralization in the lower thoracic spine. Multilevel degenerative disease of the spine. Procedure Note Siva Whitney, DO - 06/13/2024 EXAMINATION: RADIOLOGY CONSULTATION ON OUTSIDE IMAGING STUDY . STUDY INITIALLY PERFORMED: 06/01/2024, images acquired at [facility]. TYPE OF STUDY: PSMA-11 (Gozetotide)-PET/CT. The images available for review consisted of axial attenuation-corrected and uncorrected PET images and axial CT images. The total scanned area was skull base to the proximal thighs. The mean liver SUV (reported for water quality technician purposes) is 5.63. The study was interpreted on the Devunity workstation. The protocol was adequate to address the clinical question. The outside final report was not available at the time of this second opinion interpretation. DATE OF CONSULTATION: 06/13/2024 HISTORY: 73-year-old male with prostatic adenocarcinoma, Anil score 3+4 = 7, perineural invasion. Elevated PSA 9.10 on 04/30/2024. PSA 6.2 in 2021, PSA 5.7 in 2020. Initial treatment strategy. COMPARISON: None REFERENCE TISSUE MAXIMUM SUVs: Parotid gland 13.7; Liver 7.0 ; Blood pool 1.23 Focal PSMA tracer uptake is graded as follows: * Faint: above background to blood pool * Mild: above blood pool to liver * Moderate: above liver to salivary glands * Intense: similar to or above salivary glands COMPARISON: None FINDINGS: Prostate/Prostate bed: There is mild PSMA uptake in the posterolateral prostatic segments, representing the primary prostate carcinoma. Additionally, there is some suspicious extension of this PSMA avidity along the seminal vesicles. Regional lymph nodes: No abnormal tracer uptake seen. Extra-pelvic lymph nodes: No abnormal tracer uptake seen. Bone: No abnormal tracer uptake seen. Visceral: No abnormal tracer uptake seen. Additional CT findings: Pelvic vascular calcification. Cholecystectomy. Aortic aneurysm. Aortocoronary and iliac calcifications. Left maxillary sinusitis. Bilateral gynecomastia. Bilateral lower lobe mild paraseptal emphysema. Demineralization in the lower thoracic spine. Multilevel degenerative disease of the spine. IMPRESSION: 1. PSMA avidity in the posterolateral prostatic segments with potential seminal vesicle extension consistent with prostatic adenocarcinoma. 2. No evidence for local or distant metastatic disease. The findings, conclusions and recommendations within this report do not replace the initial findings, conclusions and recommendations made at the facility where the study was performed based upon the imaging and clinical condition at that time. Comparison with the prior report and clinical history is necessary. The provided images may or may not represent the douglas source data set and thus may contain changes that may lower the accuracy of this second-opinion interpretation. Dictated by: Holli Gordon MD The radiology attending physician has personally reviewed this study, and had reviewed and/or edited this written report and agrees with it. Electronically signed by: Siva Whitney DO Johnson Falcon MD IMG PET PROCEDURES Fi nal Result documented in this encounter Visit Diagnoses Diagnosis Diagnosis unknown documented in this encounter Care Teams Stain Wiper Relationship Specialty Start Date End Date Corey Angel MD [address] [place] [address] PCP - General Internal Medicine 06/18/21 documented as of this encounter
--- OUTSIDE RECORDS SUMMARY | 2024-09-30 09:21 | XMS_ITS | Encounter Summary ---
Author Organization [facility] Healthcare Address [address] [place] [address] Care Team Providers Care Equipment Sales Specialist Name Role Phone Corey Angel MD Primary Care Provider [phone] Clem Thomson MD Unavailable Harman Morales MD Unavailable [phone] Encounter Details Date Type Department Care Team (Late st Contact Info) Description 06/29/2024 Orders Only [facility] Medical Office Building 2 Radiation Oncology [address] [place], [place] [address] Harman Morales MD [address] [place] [address] [id number] Social History Tobacco Use Types Packs/Day Years [...] on file 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 Gender Identity Male 05/22/2018 10:57 AM CDT Sexual Orientation Straight 11/03/2020 7: 01 PM SAIL LAY OUT WORKER Occupation Industry Job Start Date Job End Date working Not on file Not on file Not on file documented as of this encounter Ordered Prescriptions Prescription Sig Dispense Quantity Refills Last Filled Start Date End Date LORazepam (ATIVAN) 0.5 mg tablet Take 1 tablet (0.5 mg total) by mouth every 6 (six) hours as needed for anxiety (prior to MRI) 1 tablet 06/29/2024 documented in this encounter Plan of Treatment Not on file documented as of this encounter Visit Diagnoses Not on filedocumented in this encounter Care Teams Equipment Sales Specialist Relationship Specialty Start Date End Date Corey Angel MD [address] [facility] [address] [place] [address] PCP - General Internal Medicine 06/18/21 Clem Thomson MD [address] [facility] [address] [place] [address] Referring Physician Urology 06/14/24 Harman Morales MD [address] [place] [address] Radiation Oncologist Radiation Oncology 06/22/24 documented as of this encounter
--- OUTSIDE RECORDS SUMMARY | 2024-09-30 09:21 | XMS_ITS | Encounter Summary ---
Author Organization [facility] Address [address] [place] [address] Phone Care Team Providers Care Reconnaissance Man Name Role Phone Corey Angel MD Primary Care Provider [phone] Reason for Referral * MRI/CAT/PET Scan (Routine) - Pending Review Specialty Diagnoses / Procedures Referred By Contac t Referred To Contact Radiology Diagnoses Aneurysm of ascending aorta without rupture (HCC) Procedures CTA Chest W Contrast Eusebia Coleman MD [address] [facility] [address] [place] [address] Phone: tel: fax: [address] [address] Referral ID Status Reason Start Date Expiration Date V isits Requested Visits Authorized [id number] Pending Review 04/18/2024 05/18/2025 1 1 Encounter Details Date Type Department Care Team (Late st Contact Info) Description 04/18/2024 Orders Only [facility] Cardiothoracic Surgery [facility] Advanced Medicine 8th Floor [address] [place] [address] Eusebia Coleman MD [address] [facility] [address] [place] [address] Aneurysm of ascending aorta without [...] on file 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 Gender Identity Male 05/22/2018 10:57 AM CDT Sexual Orientation Straight 11/03/2020 7: 01 PM GOAT DRIVER Occupation Industry Job Start Date Job End Date working Not on file Not on file Not on file documented as of this encounter Plan of Treatment Scheduled Orders Name Type Priority Associated Diagnoses Orde r Schedule CTA Chest W Contrast Imaging Schedule Routine, Read Routine (OP Routine) Aneurysm of ascending aorta without rupture (HCC) Expected: 01/28/2025, Expires: 05/03/2025 documented as of this encounter Visit Diagnoses Diagnosis Aneurysm of ascending aorta without rupture (HCC)- Primary documented in this encounter Care Teams Reconnaissance Man Relationship Specialty Start Date End Date Corey Angel MD [address] [facility] [address] [facility] [address] [place] [address] PCP - General Internal Medicine 06/18/21 documented as of this encounter
--- OUTSIDE RECORDS SUMMARY | 2024-09-30 09:22 | XMS_ITS | Encounter Summary ---
Author Organization [facility] Address [address] [place] [address] Phone Care Team Providers Care Haunted History Tour Guide Name Role Phone Corey Angel MD Primary Care Provider [phone] Reason for Visit * Reason Comments Elevated PSA * Consultation (Routine) - Authorized Specialty Diagnoses / Procedures Referred By Contac t Referred To Contact Urology Diagnoses Elevated PSA Corey Angel MD [address] [place] [address] Phone: tel: fax: [facility] (All Locations) Referral ID Status Reason Start Date Expiration Date Visits Requested Visits Authorized [id number] Authorized Specialty Services Required 11/09/2023 11/11/2024 99 99 Encounter Details Date Type Department Care Team (Late st Contact Info) Description 12/02/2023 11:00 AM MATE CHIEF Office Visit [facility] Urology [address] [facility] Medical Office Building [address] [place] [address] Clem Thomson MD [address] [facility] [id number] [place] [address] Elevated PSA (Primary Dx) Social History Tobacco Use Types Packs/Day Years Used Date Smoking Tobacco: Never Smokeless Tobacco: Never Tobacco Cessation:Counseling Given: Not Answered Alcohol Use Standard Drinks/Week Comments No 0 (1 standard drink = 0.6 oz pur e alcohol) AUDIT-C Answer Date Recorded Q1: How often do you have a drink containing alc ohol? Never 12/02/2023 Average Number of Drinks Not on file 024 Frequency of Binge Drinking Not on file 04/2024 Personal Safety Answer Date Recorded Getting School Help Needed Not on file 09/07 Sex and Gender Information Value Date Recorded Sex Assigned at Not on file Legal Sex Male 2:49 AM MATE CHIEF Gender Identity Male 05/22/2018 10:57 AM CDT Sexual Orientation Straight 11/03/2020 7: 01 PM MATE CHIEF Occupation Industry Job Start Date Job End Date working Not on file Not on file Not on file documented as of this encounter Last Filed Vital Signs Vital Sign Reading Time Taken Comments Blood Pressure 130/84 12/02/2023 11:21 AM MATE CHIEF Pulse 91 12/02/2023 11:21 AM MATE CHIEF Temperature - - Respiratory Rate - - Oxygen Saturation - - Inhaled Oxygen Concentration - - Weight 111.1 kg (245 lb) 12/02/2023 11:21 AM MATE CHIEF Height 182.9 cm (6') 12/02/2023 11:21 AM MATE CHIEF Body Mass Index 33.23 12/02/2023 11:21 AM MATE CHIEF documented in this encounter Progress Notes * Clem Thomson MD - 12/02/2023 11:00 AM CST Subjective/Objective Patient ID: Clem Capellan is a 73 y.o. y.o. male. Chief Complaint Elevated PSA HPI The patient is referred by Dr. Angel for further evaluation of his elevated PSA. The patient has mild LUTS, but nothing too bothersome. He denies family history of prostate cancer. I was requested to see Clem Capellan to evaluate elevated PSA by Dr. Corey Angel. Review of Systems Constitutional: Negative for chills, fever and malaise/fatigue. Respiratory: Negative for shortness of breath. Gastrointestinal: Negative for abdominal pain, nausea and vomiting. Genitourinary: Negative for dysuria, flank pain and hematuria. Musculoskeletal: Negative for back pain. Skin: Negative for rash. Physical Exam Constitutional: Appearance: He is well-developed. Eyes: Pupils: Pupils are equal, round, and reactive to light. Pulmonary: Effort: Pulmonary effort is normal. Abdominal: General: There is no distension. Tenderness: There is no guarding. Musculoskeletal: General: Normal range of motion. Neurological: Mental Status: He is alert and oriented to person, place, and time. Psychiatric: Mood and Affect: Mood normal. Behavior: Behavior normal. PSA 6.2 in 2021 PSA 5.7 in 2020. Diagnoses and all orders for this visit: Elevated PSA (Primary) - Ambulatory referral to Urology We discussed the patient's elevated PSA. We discussed options going forward including repeating thePSA, sending a 4K test, sending an Iso PSA test, sending an Exo Dx urine test, getting a prostate MRI and finally doing a prostate biopsy. After our discussion we have agreed on sending a 4K test. CHIEF documented in this encounter Plan of Treatment Not on file documented as of this encounter Visit Diagnoses Diagnosis Elevated PSA- Primary Elevated prostate specific antigen (PSA) documented in this encounter Discontinued Medications Medication Sig Discontinue Reason Start Date End Da te meloxicam (MOBIC) 7.5 mg tablet TAKE 1 TABLET(7.5 MG) BY MOUTH DAILY Therapy completed 05/29/2019 12/02/2023 FLUZONE HIGH-DOSE 2017-19, PF, 180 mcg/0.5 mL syringe Therapy completed 07/24/2018 12/02/2023 documented as of this encounter Historical Medications * This list may reflect changes made after this encounter. nitroglycerin (NITROSTAT) 0.4 mg SL tabletIndications :aneursysm Place 1 tablet (0.4 mg total) under the tongue every 5 (five) minutes as needed for chest pain 04/29/2023 metoprolol XL (TOPROL-XL) 25 mg extended release tabletIndications :hypertension,AAA Take 0.5 tablets (12.5 mg total) by mouth every morning LORazepam (ATIVAN) 0.5 mg tabletIndications :anxiety Take 1 tablet (0.5 mg total) by mouth every 6 (six) hours as needed for anxiety 06/08/2023 08/09/2024 added in this encounter Orders Outpatient Referral Count Last Ordered Date Fir st Ordered Date AMB REFERRAL TO UROLOGY 1 12/02/2023 documented in this encounter Care Teams Haunted History Tour Guide Relationship Specialty Start Date End Date Corey Angel MD [address] [facility] [address] [place] [address] PCP - General Internal Medicine 06/18/21 documented as of this encounter
--- OUTSIDE RECORDS SUMMARY | 2024-09-30 09:22 | XMS_ITS | Encounter Summary ---
Author Organization [facility] Address [address] [facility] [address] [place] [address] Care Team Providers Care Hop Farm Worker Name Role Phone James Ospina MD Primary Care Provider [phone] Corey Angel MD Primary Care Provider [phone] Encounter Details Date Type Department Care Team (Late st Contact Info) Description 04/27/[address] [facility] Cardiology [address] [facility] [address] [facility] [address] [place] [address] Mauro Reilly MD [address] [facility] [address] [place] [address] Social History Tobacco Use Types Packs/Day Years Used Date Smoking Tobacco: Never Smokeless Tobacco: Never Alcohol Use Standard Drinks/Week Comments No 0 (1 standard drink = 0.6 oz pur e alcohol) Sex and Gender Information Value Date Recorded Sex Assigned at Not on file Legal Sex Male 2:49 AM ON CALL Gender Identity Male 05/22/2018 10:57 AM CDT Sexual Orientation Straight 11/03/2020 7: 01 PM ON CALL Occupation Industry Job Start Date Job End Date working Not on file Not on file Not on file documented as of this encounter Plan of Treatment Not on file documented as of this encounter Visit Diagnoses Not on filedocumented in this encounter Care Teams Hop Farm Worker Relationship Specialty Start Date End Date James Ospina MD [address] [facility] [address] [place] [address] PCP - General Endocrinology Diabetes & Metabolism 05/22/18 06/17/21 Corey Angel MD [address] [facility] [address] [facility] [address] [place] [address] PCP - General Internal Medicine 06/18/21 documented as of this encounter
--- OUTSIDE RECORDS SUMMARY | 2024-09-30 09:22 | XMS_ITS | Encounter Summary ---
Author Organization [facility] Address [address] [place] [address] Phone Care Team Providers Care Processing Talc And Borate Supervisor Name Role Phone Corey Angel MD Primary Care Provider [phone] Reason for Referral * MRI/CAT/PET Scan (Routine) - Closed Specialty Diagnoses / Procedures Referred By Contac t Referred To Contact Radiology Diagnoses Aneurysm of ascending aorta without rupture (HCC) Procedures CTA Chest W Contrast Eusebia Coleman MD [address] [facility] [address] [place] [address] Phone: tel: fax: [address] [address] Referral ID Status Reason Start Date Expiration Date Visits Re quested Visits Authorized [id number] Closed 06/30/2022 07/30/2023 1 1 Encounter Details Date Type Department Care Team (Late st Contact Info) Description 06/30/2022 Orders Only [facility] Surgery [address] [facility] 8th [place] [address] [place] [address] Eusebia Coleman MD [address] [facility] [address] [place] [address] Aneurysm of ascending aorta without rupture (Primary Dx) Social History Tobacco Use Types Packs/Day Years Used Date Smoking Tobacco: Never Smokeless Tobacco: Never Alcohol Use Standard Drinks/Week Comments No 0 (1 standard drink = 0.6 oz pur e alcohol) Sex and Gender Information Value Date Recorded Sex Assigned at Not on file Legal Sex Male 2:49 AM STEWARD/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 Gender Identity Male 05/22/2018 10:57 AM CDT Sexual Orientation Straight 11/03/2020 7 :01 PM STEWARD/STEWARDESS TOURIST CLASS Occupation Industry Job Start Date Job End Date working Not on file Not on file Not on file documented as of this encounter Plan of Treatment Not on file documented as of this encounter Results * CTA Chest W Contrast (08/04/2022 10:18 AM STEWARD/STEWARDESS TOURIST CLASS) Anatomical Region Laterality Modality Chest N/A Computed Tomogra phy 08/04/2022 11:2 9 AM STEWARD/STEWARDESS TOURIST CLASS Impressions 08/04/2022 2:14 PM STEWARD/STEWARDESS TOURIST CLASS Stable dilation of the thoracic aorta with measurements detailed above. Dictated by: Sukhdeep Ozuna M.D. The radiology attending physician has personally reviewed this study, and had reviewed and/or edited this written report and agrees with it. Electronically signed by: Yoana Martinez M.D. Narrative 08/04/2022 2:14 PM STEWARD/STEWARDESS TOURIST CLASS EXAMINATION: CTA CHEST W CONTRAST HISTORY: 71-year-old male. ??Follow-up aortic aneurysm COMPARISON: 05/06/2021 TECHNIQUE: Computed tomographic angiography of the chest was performed after the uneventful administration of Optiray 350. Multiplanar reconstructions were subsequently performed. 3-D reconstructions were performed in a separate workstation. FINDINGS: Vascular findings: Coronary artery atherosclerosis. ??Unchanged [...] within the mid to lower thoracic spine. Procedure Note Yoana Martinez MD - 08/04/2022 EXAMINATION: CTA CHEST W CONTRAST HISTORY: 71-year-old male. Follow-up aortic aneurysm COMPARISON: 05/06/2021 TECHNIQUE: Computed tomographic angiography of the chest was performed after the uneventful administration of Optiray 350. Multiplanar reconstructions were subsequently performed. 3-D reconstructions were performed in a separate workstation. FINDINGS: Vascular findings: Coronary artery atherosclerosis. Unchanged [...] detailed above. Dictated by: Sukhdeep Ozuna M.D. The radiology attending physician has personally reviewed this study, and had reviewed and/or edited this written report and agrees with it. Electronically signed by: Yoana Martinez M.D. Eusebia Coleman MD IMG CT PROCEDURES Final Result documented in this encounter Visit Diagnoses Diagnosis Aneurysm of ascending aorta without rupture (HCC)- Primary Aneurysm of ascending aorta without rupture (HCC) documented in this encounter Care Teams Processing Talc And Borate Supervisor Relationship Specialty Start Date End Date Corey Angel MD [address] [facility] [address] [facility] [address] [place] [address] PCP - General Internal Medicine 06/18/21 documented as of this encounter
--- OUTSIDE RECORDS SUMMARY | 2024-09-30 09:22 | XMS_ITS | Encounter Summary ---
Author Organization [facility] Address [address] [facility] [address] [place] [address] Phone Care Team Providers Care Thermoplastic Technician Name Role Phone Corey Angel MD Primary Care Provider Encounter Details Date Type Department Care Team (Late st Contact Info) Description 02/23/2024 Orders Only [facility] Cardiothoracic Surgery [address] [facility] 8th Floor [address] Room [address] [address] Eusebia Coleman MD [address] [facility] [place] [address] [place] [address] Aneurysm of ascending aorta without [...] on file Legal Sex Male 2:49 AM CORPORATE LEGAL 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 Gender Identity Male 05/22/2018 10:57 AM CDT Sexual Orientation Straight 11/03/2020 7: 01 PM CORPORATE LEGAL INTERN Occupation Industry Job Start Date Job End Date working Not on file Not on file Not on file documented as of this encounter Plan of Treatment Not on file documented as of this encounter Visit Diagnoses Diagnosis Aneurysm of ascending aorta without rupture (HCC)- Primary documented in this encounter Care Teams Thermoplastic Technician Relationship Specialty Start Date End Date Corey Angel MD [address] [place] [address] PCP - General Internal Medicine 06/18/21 documented as of this encounter
--- OUTSIDE RECORDS SUMMARY | 2024-09-30 09:22 | XMS_ITS | Encounter Summary ---
Author Organization [facility] Address [address] [place] [address] Phone Care Team Providers Care Director Style Name Role Phone Corey Angel MD Primary Care Provider [phone] Reason for Visit * Consultation (Routine) - Closed Specialty Diagnoses / Procedures Referred By Hoang t Referred To Contact Cardiothoracic Surgery Diagnoses Aortic root enlargement (CMS/HCC) (HCC) Corey Angel MD [address] [place] [address] Phone: tel: fax: Jonnie Castrejon MD Phone: tel: fax: Referral ID Status Reason Start Date Expiration Date V isits Requested Visits Authorized [id number] Closed Specialty Services Required 05/14/2021 06/13/2022 1 1 Encounter Details Date Type Department Care Team (Late st Contact Info) Description 06/18/2021 10:30 AM CDT Office Visit [facility] Surgery [address] [facility] 8th [place] [address] [place] [id number] Vinicio Romo MD [address] [place] [address] Aortic root enlargement (CMS/HCC) (HCC) Social History Tobacco Use Types Packs/Day Years Used Date Smoking Tobacco: Never Smokeless Tobacco: Never Alcohol Use Standard Drinks/Week Comments No 0 (1 standard drink = 0.6 oz pur e alcohol) Sex and Gender Information Value Date Recorded Sex Assigned at Not on file Legal Sex Male 2:49 AM OFFICE WORKER Gender Identity Male 05/22/2018 10:57 AM CDT Sexual Orientation Straight 11/03/2020 7: 01 PM OFFICE WORKER Occupation Industry Job Start Date Job End Date working Not on file Not on file Not on file documented as of this encounter Last Filed Vital Signs Vital Sign Reading Time Taken Comments Blood Pressure 129/89 06/18/2021 10:32 AM CDT Pulse 90 06/18/2021 10:32 AM CDT Temperature 36.9 ??C (98.4 ??F) 06/18/2021 10:32 AM C DT Respiratory Rate - - Oxygen Saturation 96% 06/18/2021 10:32 AM CDT Inhaled Oxygen Concentration - - Weight 122 kg (269 lb) 06/18/2021 10:32 AM CDT Height - - Body Mass Index 38.32 08/30/2018 1:17 PM OFFICE WORKER documented in this encounter Progress Notes * Vinicio Romo MD - 06/18/2021 10:30 AM CDT History and Physical Subjective Patient is a 70 y.o. male with chief complaint of ascd aortic aneurysm. HPI: Pt with ascd aortic anerysm noted on CT - also Ca++ in coronaries. No CP that is severe, he says sometimes it feels unusual but not related to exercise. He has gained 20 lbs during COVID times. Used to exercise quite extensively but has held off as of late. Referred by Dr. Corey Angel to see if surgery is warranted for aneurysm. PMHX: no DM, [place], COPD, renal disease, CVA PSHx: skin CA No Known Allergies Social History Tobacco Use ??? Smoking status: Never Smoker ??? Smokeless tobacco: Never Used Substance Use Topics ??? Alcohol use: No Family History Problem Relation Age of Onset ??? Kidney disease Father ??? Heart disease Father Review of Systems: Constitutional: WNL Eyes: WNL Ears, nose, mouth, throat, and face: WNL Respiratory: WNL Cardiovascular: as per HPI Gastrointestinal: WNL Genitourinary: WNL Integument/breast: WNL Hematologic/lymphatic: WNL Musculoskeletal: WNL Neurological: WNL Behavioral/Psych: WNL Endocrine: WNL Allergic/Immunologic: WNL Objective Vitals: Arrival Vitals [06/18/21 1032] Temp 36.9 ??C (98.4 ??F) Pulse 90 Resp BP 129/89 SpO2 96 % Temp src Heart Rate Source Patient Position Sitting BP Location Left arm FiO2 (%) Physical exam: Physical Exam Vitals reviewed. Constitutional: Appearance: Normal appearance. HENT: Head: Normocephalic and atraumatic. Mouth/Throat: Mouth: Mucous membranes are moist. Eyes: Extraocular Movements: Extraocular movements intact. Pupils: Pupils are equal, round, and reactive to light. Neck: Vascular: No carotid bruit (no bruit). Cardiovascular: Rate and Rhythm: Normal rate and regular rhythm. Pulses: Normal pulses. Heart sounds: Normal heart sounds. No murmur (no murmur) heard. Pulmonary: Effort: Pulmonary effort is normal. Breath sounds: Normal breath sounds. Abdominal: General: Abdomen is flat. Palpations: Abdomen is soft. Musculoskeletal: General: Normal range of motion. Skin: General: Skin is warm and dry. Capillary Refill: Capillary refill takes less than 2 seconds. Neurological: General: No focal deficit present. Mental Status: He is alert and oriented to person, place, and time. Psychiatric: Mood and Affect: Mood normal. Behavior: Behavior normal. Lab/Radiology/Diagnostic Review: Laboratory review: Chemistry BMP Lab Results Component Value Date GLUCOSE 102 12/16/2015 CALCIUM 9.1 12/16/2015 SODIUM 137 12/16/2015 POTASSIUM 3.6 12/16/2015 CO2 23 12/16/2015 BUNSER 6 (L) 12/16/2015 CREATININE 0.80 12/16/2015 @LABALLVALUEIP(TROPONINI:3)@ No lab exists for component: PTINR Echocardiogram: I personally reviewed myself. Good LV function, no significant valve abnormalities,PAP 25, RAP 10, aortic root 4.2cm Chest CT:I personally reviewed myself. Fusiform aorta 4.2 cm no saccular component, no mural thrombus no dissection. Ca++ in cors. Stress Test:I personally reviewed stress test myself. Max heart rate achieved about 150. Negative for symptoms or ST or T wave changes. A/P: multiple problems discussed. Newly diagnosed ascd aortic aneurysm. 4.2 cm. We had a long discussion about prognosis. I do not feel that it warrants surgical intervention at this point. Risk of dissection is less than surgery. It warrants f/u though - I will schedule CT of chest here in 1 year.If stable at that point, then again 2 years later. Also, Ca++ in cors, but negative stress test. I told him if CP develops during exercise, which he has no limitations at aortic size of 4.2, then f/uwith Dr. Angel to pursue further coronary w/u but he does not have significant risk factors that would prompt further investigation without progression of symptoms. MD James Flores Chair in Cardiovascular Disease Chief, Cardiac Surgery Director, [facility] Diseases of the Thoracic Aorta [facility] in [place] documented in this encounter Plan of Treatment Not on file documented as of this encounter Visit Diagnoses Diagnosis Aortic root enlargement (CMS/HCC) (HCC) documented in this encounter Historical Medications * This list may reflect changes made after this encounter. icosapent ethyL (VASCEPA) 1 gram capsuleIndication s:hypertriglyceri demia Take 2 capsules (2 g total) by mouth 2 (two) times a day 05/23/2021 rosuvastatin (CRESTOR) 20 mg tabletIndications :hyperlipidemia Take 1 tablet (20 mg total) by mouth nightly 04/21/2021 added in this encounter Orders Outpatient Referral Count Last Ordered Date Fir st Ordered Date AMB REFERRAL TO CARDIOTHORACIC SURGERY 1 documented in this encounter Care Teams Director Style Relationship Specialty Start Date End Date Corey Angel MD [address] [place] [address] PCP - General Internal Medicine 06/18/21 documented as of this encounter
--- OUTSIDE RECORDS SUMMARY | 2024-09-30 09:22 | XMS_ITS | Encounter Summary ---
Author Organization [facility] Address [address] [place] [address] Phone Care Team Providers Care Pig Farm Manager Name Role Phone Corey Angel MD Primary Care Provider [phone] Encounter Details Date Type Department Care Team (Late st Contact Info) Description 12/19/2023 Telephone [facility] Urology [address] 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 RANGE TENDER Gender Identity Male 05/22/2018 10:57 AM CDT Sexual Orientation Straight 11/03/2020 7: 01 PM CLOTH DESIZING RANGE TENDER Occupation Industry Job Start Date Job End Date working Not on file Not on file Not on file documented as of this encounter Miscellaneous Notes * Telephone Encounter - Tana Elizondo - 12/30/2023 10:35 AM CDT Patient called, he is ill, rescheduled procedure for 02/01, letter sent * Telephone Encounter - Taan Elizondo - 12/19/2023 4:11 PM CDT Will try to schedule 12/28 at , case sent to scheduling , case scheduled, letter sent * Telephone Encounter - Tana Elizondo - 12/19/2023 2:01 PM CDT Patient returned your call, he was at another doctor's appt when you called documented in this encounter Plan of Treatment Not on file documented as of this encounter Visit Diagnoses Not on filedocumented in this encounter Care Teams Pig Farm Manager Relationship Specialty Start Date End Date Corey Angel MD [address] [facility] [address] [place] [address] PCP - General Internal Medicine 06/18/21 documented as of this encounter
--- OUTSIDE RECORDS SUMMARY | 2024-09-30 09:22 | XMS_ITS | Encounter Summary ---
Author Organization [facility] Address [address] [place] [address] Care Team Providers Care Payroll And Benefits Specialist Name Role Phone Corey Angel MD Primary Care Provider [phone] Encounter Details Date Type Department Care Team (Latest Contact Info) Description 07/15/2022 12:25 PM CDT - 07/15/2022 11:59 PM CDT Hospital Encounter [facility] [address] [place] [address] Discharge Disposition: Discharge to home or self care Social History Tobacco Use Types Packs/Day Years Used Date Smoking Tobacco: Never Smokeless Tobacco: Never Alcohol Use Standard Drinks/Week Comments No 0 (1 standard drink = 0.6 oz pur e alcohol) Sex and Gender Information Value Date Recorded Sex Assigned at Not on file Legal Sex Male 2:49 AM PHOTOGRAMMETRIC SURVEYOR Gender Identity Male 05/22/2018 10:57 AM CDT Sexual Orientation Straight 11/03/2020 7: 01 PM PHOTOGRAMMETRIC SURVEYOR Occupation Industry Job Start Date Job End Date working Not on file Not on file Not on file documented as of this encounter Medications at Time of Discharge esomeprazole DR (NexIUM) 20 mg capsuleIndicatio ns:Treatment of Non-Bleeding Gastric Disorder,gerd Take 1 capsule (20 mg total) by mouth daily before breakfast icosapent ethyL (VASCEPA) 1 gram capsuleIndicatio ns:hypertriglyce ridemia Take 2 capsules (2 g total) by mouth 2 (two) times a day 05/23/2021 rosuvastatin (CRESTOR) 20 mg tabletIndication s:hyperlipidemia Take 1 tablet (20 mg total) by mouth nightly 04/21/2021 FLUZONE HIGH-DOSE 2018-19, PF, 180 mcg/0.5 mL syringe 07/24/2018 4 meloxicam (MOBIC) 7.5 mg tablet TAKE 1 TABLET(7.5 MG) BY MOUTH DAILY 90 tablet 2 05/29/2019 4 documented as of this encounter Discharge Disposition Disposition Code Departure Means Destination Discharge to home or self care documented in this encounter Plan of Treatment Not on file documented as of this encounter Procedures Procedure Name Priority Date/Time Associated Diagnosis Comments CT BODY OUTSIDE REFERENCE Routine 07/15/2022 12:25 PM CDT Diagnosis unknown documented in this encounter Results * CT Body Outside Reference (07/15/2022 12:25 PM CDT) Impressions [facility] - 07/15/2022 12:25 PM CDT These images are for Reference purposes only and have not been reviewed by [facility] Radiology. ??There will be no report generated by a [facility] Radiologist. Narrative [facility] - 07/15/2022 12:25 PM CDT EXAMINATION: ??Images For Reference Purposes Only us Eusebia Coleman MD IMG CT PROCEDURES Final Result [facility] documented in this encounter Visit Diagnoses Not on filedocumented in this encounter Care Teams Payroll And Benefits Specialist Relationship Specialty Start Date End Date Corey Angel MD [address] [place] [address] PCP - General Internal Medicine 06/18/21 documented as of this encounter
--- OUTSIDE RECORDS SUMMARY | 2024-09-30 09:22 | XMS_ITS | Encounter Summary ---
Author Organization [facility] Address [address] [place] [address] Phone Care Team Providers Care Adjuster Piano Action Name Role Phone Corey Angel MD Primary Care Provider [phone] Encounter Details Date Type Department Care Team (Late st Contact Info) Description 06/19/2021 Orders Only [facility] Surgery [address] [facility] Advanced [facility] 8th [address] [place] [address] Vinicio Romo MD [address] [place], [place] [id number] Ascending aortic aneurysm (CMS/HCC) (HCC) (Primary Dx) Social History Tobacco Use Types Packs/Day Years Used Date Smoking Tobacco: Never Smokeless Tobacco: Never Alcohol Use Standard Drinks/Week Comments No 0 (1 standard drink = 0.6 oz pur e alcohol) Sex and Gender Information Value Date Recorded Sex Assigned at Not on file Legal Sex Male 2:49 AM LOFT WORKER HEAD Gender Identity Male 05/22/2018 10:57 AM CDT Sexual Orientation Straight 11/03/2020 7: 01 PM LOFT WORKER HEAD Occupation Industry Job Start Date Job End Date working Not on file Not on file Not on file documented as of this encounter Plan of Treatment Not on file documented as of this encounter Visit Diagnoses Diagnosis Ascending aortic aneurysm (HCC)- Primary Thoracic aneurysm without mention of rupture documented in this encounter Care Teams Adjuster Piano Action Relationship Specialty Start Date End Date Corey Angel MD [address] [facility] [address] [place] [address] PCP - General Internal Medicine 06/18/21 documented as of this encounter
--- OUTSIDE RECORDS SUMMARY | 2024-09-30 09:22 | XMS_ITS | Encounter Summary ---
Author Organization [facility] Address [address] [place] [address] Care Team Providers Care Credit Clerk Name Role Phone Corey Angel MD Primary Care Provider [phone] Encounter Details Date Type Department Care Team (Late st Contact Info) Description 12/29/2023 11:59 PM CDT Anesthesia Event [facility] Operating Room [address] [place] [address] Emmy Garcia MD [address] [facility] [address] [place] [address] Anesthesia Record Procedure Summary Procedure Name Responsible Anesthesiologist Anesthesia Start Time Anesthesia Stop Time BIOPSY PROSTATE - TRANSPERINEAL Events No events on file. Meds * Agents No agents on file. * Blood No blood administrations on file. 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 Anesthesia Evaluation Clem Capellan is a 73 y.o. male BIOPSY PROSTATE - TRANSPERINEAL Pre-Op Diagnosis Codes: * Elevated PSA [R97.20] HISTORY HPI Clem Capellan is a 73 y.o. male with history of CAD [...] - current AAA. Pertinent negatives: hypertension ; HI ; CABG ; valvular heart disease; atrial fibrillation; pacemaker/ICD; DVT/PE; negative for CHF; drug-eluting stent(s) and bare metal stent(s) Comments: Typical BP 110/70 + thoracic ascending aortic aneurysm, diagnosed at the time of CT calcium score done in March 2021 Follow with cardiology, Dr. Muse 06/2023. Respiratory Pertinent negatives: COPD; asthma; sleep apnea (ASHLEY); no O2 use outside the hospital and non-smoker Hepatic / Heme + Liver disease (fatty liver) + History of anemia Gastrointestinal + GERD - on daily therapy. Asymptomatic. + Hiatal hernia Renal / Pertinent negatives: renal disease and dialysis Comments: +Elevated PSA Endocrine / Other + Cancer history- skin cancer only. Pertinent negatives: diabetes mellitus; thyroid disease; transplanted organ and infectious disease Functional Capacity Functional capacity: 4-6 METs Comments: Active around the house and independent in ADLs. Walks 30-45 minutes on treadmill daily without CP or SOB. Review of Systems Pertinent negatives: productive cough; SOB; recent cold/flu; fever; chest pain; orthopnea; pedal edema; PND; previous transfusion; bleeding problems; syncope; dizziness and no unexpected weight change Comments: Denies UTI, URI, open wounds, or other signs and symptoms of infection at this time. PAT Summary and Plans Cardiac risk classification of planned procedure: low cardiac risk. Preoperative assessment status: complete. Additional comments: Clem Capellan is a 73 y.o. male who is being evaluated prior to undergoing a low cardiac risk surgery. Revised Cardiac Risk Index factors are (ischemic heart disease) for a total RCRI of 1 out of 6. Functional capacity is 4-6 [...] provided by telephone and electronically sent via [employer]. Patient verbalized understanding of preoperative plan. Blood bank needs for day of procedure: No type and screen needed Pending labs/tests include: None TPAP assessment complete Preoperative evaluation performed by Therese Multani NP on 12/26/23 at 1:29 PM . Patient Active Problem List Diagnosis Date Noted Elevated PSA 12/19/2023 Ascending aortic aneurysm (HCC) 06/19/2021 Squamous cell carcinoma of skin of left sabianist - Left 05/30/2018 Knee pain 04/22/2016 Past Medical History: Diagnosis Date Ascending aortic aneurysm (HCC) Fatty liver Gallstones Hiatal hernia Iron deficiency anemia Past Surgical History: Procedure Laterality Date CHOLECYSTECTOMY 2019 COLONOSCOPY 2022 HEMORROIDECTOMY in early No Known Allergies Med List Status: Nurse Complete Set By: Hien Harden RN at 12/20/2023 2:09 PM Taking? Last Dose Start Date End Date Provider cholecalciferol 400 unit capsule 12/20/2023 -- -- Eugenia Morales MD esomeprazole DR (NexIUM) 40 mg capsule 12/20/2023 -- -- Eugenia Morales MD icosapent ethyL (VASCEPA) 1 gram capsule 12/20/2023 05/23/21 -- Eugenia Morales MD LORazepam (ATIVAN) 0.5 mg tablet -- 06/08/23 -- Eugenia Morales MD metoprolol XL (TOPROL-XL) 25 mg extended release tablet 12/20/2023 -- -- Eugenia Morales MD nitroglycerin (NITROSTAT) 0.4 mg SL tablet -- 04/29/23 04/28/24 Eugenia Morales MD rosuvastatin (CRESTOR) 40 mg tablet 12/19/2023 04/21/21 -- Eugenia Morales MD No current facility-administered medications for this encounter. Current Outpatient Medications: cholecalciferol [address] (NexIUM) 40 mg capsule icosapent ethyL (VASCEPA) 1 gram capsule LORazepam (ATIVAN) 0.5 mg tablet metoprolol XL (TOPROL-XL) 25 mg extended release tablet nitroglycerin (NITROSTAT) 0.4 mg SL tablet rosuvastatin (CRESTOR) 40 mg tablet Social History Tobacco Use Smoking Status Never Smokeless Tobacco Never Alcohol Use: Not At Risk (12/20/2023) AUDIT-C Frequency of Alcohol Consumption: Never Average [...] N/A PFT(s): N/A Vascular studies: N/A Other: 07/07/23 Chest CTA: Fusiform aneurysmal aortic root and ascending, without change from 04/20/2021. -The aortic root at the sinuses of Valsalva measures 4.2 cm. Sinotubular junction 3.6 cm. Ascendingaorta 4.4 cm. Aortic arch 3.1 cm. Descending thoracic aorta 3.3 cm. Abdominal aorta 2.2 cm. No interval change inthe diameter of the aortic root and ascending aorta from 04/20/2021. No aortic dissection. No pulmonary artery embolism. Coronary artery calcium. No pericardial effusion. Patent bilateral common carotid, vertebral, and subclavian arteries. Patent celiac and superior mesenteric and renal arteries. Patent main airways. Mild fibrotic lung changes. This includes honeycombing. No pneumothorax or pleural effusion. No adenopathy. No acute finding of upper abdomen. Prior cholecystectomy. Degenerativechange in the spine. Bones appear osteoporotic. 11/9/22 Chest CTA: Stable dilation of the thoracic aorta with measurements detailed above. 04/20/[address]: Total calcium score of [...] requested labs within last 30 days. Creatinine: No results found for requested labs within last 30 days. Verona index score: 100 documented in this encounter Plan of Treatment Not on file documented as of this encounter Visit Diagnoses Not on filedocumented in this encounter Care Teams Credit Clerk Relationship Specialty Start Date End Date Corey Anegl MD [address] [facility] [address] [place] [id number] PCP - General Internal Medicine 06/18/21 documented as of this encounter
--- OUTSIDE RECORDS SUMMARY | 2024-09-30 09:22 | XMS_ITS | Encounter Summary ---
Author Organization [facility] Address [address] [facility] [address] [place] [address] Care Team Providers Care Vacuum Cleaner Operator Name Role Phone James Ospina MD Primary Care Provider [phone] Encounter Details Date Type Department Care Team (Late st Contact Info) Description 05/18/2021 Orders Only [facility] Cardiology [address] [facility] [address] [place] [address] Sushant Madison MD [facility] [place] [id number] Social History Tobacco Use Types Packs/Day Years Used Date Smoking Tobacco: Never Smokeless Tobacco: Never Alcohol Use Standard Drinks/Week Comments No 0 (1 standard drink = 0.6 oz pur e alcohol) Sex and Gender Information Value Date Recorded Sex Assigned at Not on file Legal Sex Male 2:49 AM ALUM PLANT OPERATOR Gender Identity Male 05/22/2018 10:57 AM CDT Sexual Orientation Straight 11/03/2020 7: 01 PM ALUM PLANT OPERATOR Occupation Industry Job Start Date Job End Date working Not on file Not on file Not on file documented as of this encounter Plan of Treatment Not on file documented as of this encounter Procedures Procedure Name Priority Date/Time Associated Diagnosis Comments CARDIOLOGY DOCUMENT SCAN Routine 05/18/2021 documented in this encounter Results * SCAN - CARDIOLOGY (05/18/2021) Anatomical Region Laterality Modality Other us Sushant Madison MD [facility] Final Result documented in this encounter Visit Diagnoses Not on filedocumented in this encounter Care Teams Vacuum Cleaner Operator Relationship Specialty Start Date End Date James Ospina MD [address] [address] PCP - General Endocrinology Diabetes & Metabolism 05/22/18 06/17/21 documented as of this encounter
--- OUTSIDE RECORDS SUMMARY | 2024-09-30 09:22 | XMS_ITS | Encounter Summary ---
Author Organization [facility] Healthcare Address [address] [place] [address] Care Team Providers Care Inspector Wire Products Name Role Phone Corey Angel MD Primary Care Provider [phone] Reason for Referral * MRI/CAT/PET Scan (Routine) - Closed Specialty Diagnoses / Procedures Referred By Contac t Referred To Contact Radiology Diagnoses Aneurysm of ascending aorta without rupture (HCC) Procedures CTA Chest W Contrast Eusebia Coleman MD [address] [facility] [facility] [id number] [place] [address] Phone: tel: fax: [address] [phone] Referral ID Status Reason Start Date Expiration Date Visits Re quested Visits Authorized [id number] Closed 06/30/2022 07/30/2023 1 1 OTIONS MANAGER Reason for Visit * MRI/CAT/PET Scan (Routine) - Closed Specialty Diagnoses / Procedures Referred By Contac t Referred To Contact Radiology Diagnoses Aneurysm of ascending aorta without rupture (HCC) Procedures CTA Chest W Contrast Eusebia Coleman MD [address] [facility] [id number] [place] [address] Phone: tel: fax: [address] [phone] Referral ID Status Reason Start Date Expiration Date Visits Re quested Visits Authorized [id number] Closed 06/30/2022 07/30/2023 1 1 Encounter Details Date Type Department Care Team (Latest Contact Info) Description 08/04/2022 9:40 AM PROMOTIONS MANAGER - 08/04/2022 11:59 PM PROMOTIONS MANAGER Hospital Encounter [facility] [address] [address] Aneurysm of ascending aorta without rupture Discharge Disposition: Discharge to home or self care Social History Tobacco Use Types Packs/Day Years Used Date Smoking Tobacco: Never Smokeless Tobacco: Never Alcohol Use Standard Drinks/Week Comments No 0 (1 standard drink = 0.6 oz pur e alcohol) Sex and Gender Information Value Date Recorded Sex Assigned at Not on file Legal Sex Male 2:49 AM PROMOTIONS MANAGER Gender Identity Male 05/22/2018 10:57 AM CDT Sexual Orientation Straight 11/03/2020 7: 01 PM PROMOTIONS MANAGER Occupation Industry Job Start Date Job End Date working Not on file Not on file Not on file documented as of this encounter Medications at Time of Discharge cholecalciferol 400 unit capsuleIndicatio ns:supplement Take 600 [...] total) by mouth nightly 04/21/2021 FLUZONE HIGH-DOSE 2017-19, PF, 180 mcg/0.5 mL syringe 07/24/2018 4 [...] Priority Date/Time Associated Diagnosis Comments CTA CHEST W CONTRAST Schedule Routine, Read Routine (OP Routine) 08/04/2022 10:18 AM PROMOTIONS MANAGER Aneurysm of ascending aorta without rupture POC ISTAT Routine 08/04/2022 10:12 AM PROMOTIONS MANAGER documented in this encounter Results * CTA Chest W Contrast (08/04/2022 10:18 AM PROMOTIONS MANAGER) Anatomical Region Laterality Modality Chest N/A Computed Tomogra phy 08/04/2022 11:2 9 AM PROMOTIONS MANAGER Impressions 08/04/2022 2:14 PM PROMOTIONS MANAGER Stable dilation of the thoracic aorta with measurements detailed above. Dictated by: Sukhdeep Ozuna M.D. The radiology attending physician has personally reviewed this study, and had reviewed and/or edited this written report and agrees with it. Electronically signed by: Yoana Martinez M.D. Narrative 08/04/2022 2:14 PM PROMOTIONS MANAGER EXAMINATION: CTA CHEST W CONTRAST HISTORY: 71-year-old [...] by: Yoana Martinez M.D. Eusebia Coleman MD IM CT PROCEDURES Final Result * POC ISTAT (08/04/2022 10:12 AM PROMOTIONS MANAGER) Creatinine, POC, bld 0.7 0.6 - 1.3 mg/dL SHILPA CALI Comment: Interpretive data Creatinine <1.5 mg/dL and stable receive IV contrast. Creatinine 1.5-1.9 mg/dL and stable use Visipaque IV contrast. Current interpretive data last reviewed 2015. POC Device Number [id number] SHILPA BJWCH POC Performer [id number] SHILPA CALI Blood 08/04/2022 10:1 2 AM PROMOTIONS MANAGER 08/04/2022 10:12 AM PROMOTIONS MANAGER us Eusebia Coleman MD LAB BLOOD ORDERABLES Final Resul t SHILPA ZULETACH [address] [facility]. Department [place] [address] documented in this encounter Visit Diagnoses Diagnosis Aneurysm of ascending aorta without rupture (HCC) documented in this encounter Administered Medications Inactive Administered Medications - up to 3 most recent administrations Medication Order MAR Action Action Date Dose Rate Site ioversoL (OPTIRAY 350) syringe 100 mL 100 mL, intravenous, Once in imaging, contrast, Starting on Tue08/04/22 at 1006, For 1 dose Contrast Given 08/04/2022 10:14 AM PROMOTIONS MANAGER 100 mL documented in this encounter Orders Medications Ordered That Gumaro ht Not Have Been Administered Count Last Ordered Date First Ordered Date ioversoL (OPTIRAY 350) syringe 100 mL 1 05/2022 documented in this encounter Care Teams Inspector Wire Products Relationship Specialty Start Date End Date Corey Angel MD [address] [place] [address] PCP - General Internal Medicine 06/18/21 documented as of this encounter
--- OUTSIDE RECORDS SUMMARY | 2024-09-30 09:22 | XMS_ITS | Encounter Summary ---
Author Organization [facility] Healthcare Address [address] [place] [address] Care Team Providers Care Lead Architect Name Role Phone Corey Angel MD Primary Care Provider [phone] Encounter Details Date Type Department Care Team (Latest Contact Info) Description 07/15/2022 12:23 PM CDT - 07/15/2022 12:24 PM CDT Hospital Encounter [facility] [address] [place] [id number] Discharge Disposition: Discharge to home or self care Social History Tobacco Use Types Packs/Day Years Used Date Smoking Tobacco: Never Smokeless Tobacco: Never Alcohol Use Standard Drinks/Week Comments No 0 (1 standard drink = 0.6 oz pur e alcohol) Sex and Gender Information Value Date Recorded Sex Assigned at Not on file Legal Sex Male 2:49 AM CLERICAL SPECIALIST Gender Identity Male 05/22/2018 10:57 AM CDT Sexual Orientation Straight 11/03/2020 7: 01 PM CLERICAL SPECIALIST Occupation Industry Job Start Date Job End [...] Comments CT BODY OUTSIDE REFERENCE Routine 07/15/2022 12:23 PM CDT Diagnosis unknown documented in this encounter Results * CT Body Outside Reference (07/15/2022 12:23 PM CDT) Impressions [facility] - 07/15/2022 12:23 PM CDT These images are for Reference purposes only and have not been reviewed by [facility] Radiology. ??There will be no report generated by a [facility] Radiologist. Narrative RAD_PACS_[facility] - 07/15/2022 12:23 PM CDT EXAMINATION: ??Images For Reference Purposes Only us Eusebia Coleman MD IMG CT PROCEDURES Final Result [facility] documented in this encounter Visit Diagnoses Not on filedocumented in this encounter Care Teams Lead Architect Relationship Specialty Start Date End Date Corey Angel MD [address] [place] [address] PCP - General Internal Medicine 06/18/21 documented as of this encounter
--- OUTSIDE RECORDS SUMMARY | 2024-09-30 09:22 | XMS_ITS | Encounter Summary ---
Author Organization [facility] Healthcare Address [address] [place] [address] Care Team Providers Care Telescope Maintenance Name Role Phone James Ospina MD Primary Care Provider [phone] Reason for Referral * Diagnostic Imaging (Routine) - Closed Specialty Diagnoses / Procedures Referred By Contac t Referred To Contact Diagnoses Right knee pain, unspecified chronicity Procedures XR Knee Right 3 Views Suleiman Hamilton PA Phone: tel: fax: [facility] [address] Referral ID Status Reason Start Date Expiration Date Visits Re quested Visits Authorized [id number] Closed 08/28/2018 03/08/2020 1 1 R DIPPER Reason for Visit * Diagnostic Imaging (Routine) - Closed Specialty Diagnoses / Procedures Referred By Contac t Referred To Contact Diagnoses Right knee pain, unspecified chronicity Procedures XR Knee Right 3 Views Suleiman Hamilton PA Phone: tel: fax: [facility] [address] Referral ID Status Reason Start Date Expiration Date Visits Re quested Visits Authorized [id number] Closed 08/28/2018 03/08/2020 1 1 Encounter Details Date Type Department Care Team (Latest Contact Info) Description 08/30/2018 12:44 PM COLOR DIPPER - 08/30/2018 11:59 PM COLOR DIPPER Hospital Encounter [facility] [address] [place] [address] [address] [place] [address] Suleiman Hamilton PA [address] [place] [address] Iván Cunningham MD [address] [place] [address] Right knee pain, unspecified chronicity Discharge Disposition: Discharge to home or self care Social History Tobacco Use Types Packs/Day Years Used Date Smoking Tobacco: Never Smokeless Tobacco: Never Alcohol Use Standard Drinks/Week Comments No 0 (1 standard drink = 0.6 oz pur e alcohol) Sex and Gender Information Value Date Recorded Sex Assigned at Not on file Legal Sex Male 2:49 AM COLOR DIPPER Gender Identity Male 05/22/2018 10:57 AM CDT Sexual Orientation Straight 11/03/2020 7: 01 PM COLOR DIPPER Occupation Industry Job Start Date Job End Date working Not on file Not on file Not on file documented as of this encounter Medications at Time of Discharge esomeprazole DR (NexIUM) 20 mg capsuleIndicatio ns:Treatment of Non-Bleeding Gastric Disorder,gerd Take 1 capsule (20 mg total) by mouth daily before breakfast FLUZONE HIGH-DOSE , PF, 180 mcg/0.5 mL syringe 07/24/2018 4 meloxicam (MOBIC) 7.5 mg tabletIndication s:Osteoarthritis Take 1 tablet (7.5 mg total) by mouth daily. 30 tablet 2 08/30/2018 9 documented as of this encounter Discharge Disposition Disposition Code Departure Means Destination Discharge to home or self care documented in this encounter Plan of Treatment Not on file documented as of this encounter Procedures Procedure Name Priority Date/Time Associated Diagnosis Comments XR KNEE RIGHT 3 VIEWS Schedule Routine, Read Routine (OP Routine) 08/30/2018 12:58 PM COLOR DIPPER Right knee pain, unspecified chronicity documented in this encounter Results * XR Knee Right 3 Views (08/30/2018 12:58 PM COLOR DIPPER) Anatomical Region Laterality Modality Lower Extremities, Knee Right Computed Radiography 08/30/2018 1:28 PM COLOR DIPPER Impressions 08/30/2018 1:28 PM COLOR DIPPER Unchanged mild right knee osteoarthritis with a new small effusion. Electronically signed by: James Cunningham M.D. Narrative 08/30/2018 1:28 PM COLOR DIPPER EXAMINATION: Right knee, 3 views HISTORY: ??Right knee pain FINDINGS: 3 view examination of the right knee is digitally acquired and includes a standing AP and Merchant examination of both knees. Comparison is to a study dated 26 June 2016. Mild tricompartmental osteoarthritis bilaterally is unchanged. On the right, there is no fracture. A new small effusion is present. Procedure Note James Cunningham MD - 08/30/2018 EXAMINATION: Right knee, 3 views HISTORY: Right knee pain FINDINGS: 3 view examination of the right knee is digitally acquired and includes a standing AP and Merchant examination of both knees. Comparison is to a study dated 26 June 2016. Mild tricompartmental osteoarthritis bilaterally is unchanged. On the right, there is no fracture. A new small effusion is present. IMPRESSION: Unchanged mild right knee osteoarthritis with a new small effusion. Electronically signed by: James Cunningham M.D. Suleiman TAN IMG XR PROCEDURES Final Resul t documented in this encounter Visit Diagnoses Diagnosis Right knee pain, unspecified chronicity documented in this encounter Care Teams Telescope Maintenance Relationship Specialty Start Date End Date James Ospina MD [address] [facility] [address] [place] [address] PCP - General Endocrinology Diabetes & Metabolism 05/22/18 06/17/21 documented as of this encounter
--- OUTSIDE RECORDS SUMMARY | 2024-09-30 09:22 | XMS_ITS | Encounter Summary ---
Author Organization [facility] Address [address] [facility] [address] [place] [address] Care Team Providers Care Care Services Manager Name Role Phone James Ospina MD Primary Care Provider [phone] Encounter Details Date Type Department Care Team (Late st Contact Info) Description 05/18/2021 Orders Only [facility] Cardiology [address] [facility] [address] [place] [address] Sushant Madison MD [facility] [place] [id number] Social History Tobacco Use Types Packs/Day Years Used Date Smoking Tobacco: Never Smokeless Tobacco: Never Alcohol Use Standard Drinks/Week Comments No 0 (1 standard drink = 0.6 oz pur e alcohol) Sex and Gender Information Value Date Recorded Sex Assigned at Not on file Legal Sex Male 2:49 AM CLINICAL RESEARCHER Gender Identity Male 05/22/2018 10:57 AM CDT Sexual Orientation Straight 11/03/2020 7: 01 PM CLINICAL RESEARCHER Occupation Industry Job Start Date Job End [...] us Sushant Madison MD [facility] Final Result documented in this encounter Visit Diagnoses Not on filedocumented in this encounter Care Teams Care Services Manager Relationship Specialty Start Date End Date James Ospina MD [address] [address] PCP - General Endocrinology Diabetes & Metabolism 05/22/18 06/17/21 documented as of this encounter
--- OUTSIDE RECORDS SUMMARY | 2024-09-30 09:22 | XMS_ITS | Encounter Summary ---
Author Organization [facility] Address [address] [facility] [address] [place] [address] Phone Care Team Providers Care Learning Development Specialist Name Role Phone Corey Angel MD Primary Care Provider [phone] Reason for Visit * Reason Comments Establish Care Encounter Details Date Type Department Care Team (Late st Contact Info) Description 08/04/2022 10:30 AM LAYOUT MECHANIC Office Visit [facility] Surgery [facility] [address] [place] [address] Eusebia Coleman MD [address] [facility] [address] [place] [address] Aneurysm of ascending aorta without rupture (Primary Dx) Social History Tobacco Use Types Packs/Day Years Used Date Smoking Tobacco: Never Smokeless Tobacco: Never Tobacco Cessation:Counseling Given: Not Answered Alcohol Use Standard Drinks/Week Comments No 0 (1 standard drink = 0.6 oz pur e alcohol) Sex and Gender Information Value Date Recorded Sex Assigned at Not on file Legal Sex Male 2:49 AM LAYOUT MECHANIC Gender Identity Male 05/22/2018 10:57 AM CDT Sexual Orientation Straight 11/03/2020 7: 01 PM LAYOUT MECHANIC Occupation Industry Job Start Date Job End Date working Not on file Not on file Not on file documented as of this encounter Last Filed Vital Signs Vital Sign Reading Time Taken Comments Blood Pressure 152/104 08/04/2022 10:32 AM LAYOUT MECHANIC Pulse 106 08/04/2022 10:32 AM LAYOUT MECHANIC Temperature - - Respiratory Rate - - Oxygen Saturation 97% 08/04/2022 10:32 AM LAYOUT MECHANIC Inhaled Oxygen Concentration - - Weight 125.6 kg (277 lb) 08/04/2022 10:32 AM LAYOUT MECHANIC Height 180.3 cm (5' 11 ) 08/04/2022 10:32 AM LAYOUT MECHANIC Body Mass Index 38.63 08/04/2022 10:32 AM LAYOUT MECHANIC documented in this encounter Progress Notes * Tameka Mixon NP - 08/04/2022 10:30 AM CST Name: Clem Capellan : 1950 Date: 08/04/2022 Requesting Crown Perforator Operator: Corey Angel MD PCP: Corey Angel MD Consulting Surgeon: Eusebia Coleman MD/Tameka Mixon ANP Reason For Consultation: ascending aortic aneurysm Subjective Patient is a 71 y.o. male with no complaints HPI: Mr Clem Capellan is a pleasant 71 year old gentleman who was seen in the aortic center last fall for a mildly dilated ascending aorta.He has no aortic valvular pathology. He has no family history ofaneurysm or dissection. He does not smoke. His blood pressure is elevated today.He returns to get established in the aortic center with Dr. Eusebia Coleman and imaging.Today, he has no new complaints. Past Medical History: Diagnosis Date Ascending aortic aneurysm Fatty liver Gallstones Hiatal hernia Iron deficiency anemia Past Surgical History: Procedure Laterality Date HEMORROIDECTOMY No Known Allergies Social History Tobacco Use Smoking status: Never Smokeless tobacco: Never Substance and Sexual Activity Drug use: No Sexual activity: Defer Alcohol Use: Not on file Family History Problem Relation Age of Onset Kidney disease Father Heart disease Father Review of Systems: Constitutional: WNL Eyes: WNL Ears, nose, mouth, throat, and face: WNL Respiratory: WNL Cardiovascular: no chest or back pain Gastrointestinal: WNL Genitourinary: WNL Integument/breast: WNL Hematologic/lymphatic: WNL Musculoskeletal: WNL Neurological: WNL Behavioral/Psych: WNL Endocrine: WNL Allergic/Immunologic: WNL Vitals: Vitals Ht 180.3 cm (5' 11 ) Wt 125.6 kg (277 lb) BMI 38.63 kg/m?? Physical exam: Physical Exam Constitutional: Appearance: Normal appearance. HENT: Head: Normocephalic. Mouth/Throat: Mouth: Mucous membranes are moist. Cardiovascular: Rate and Rhythm: Normal rate and regular rhythm. Pulmonary: Effort: Pulmonary effort is normal. Breath sounds: Normal breath sounds. Abdominal: General: Bowel sounds are normal. Palpations: Abdomen is soft. Musculoskeletal: Cervical back: Normal range of motion and neck supple. Skin: General: Skin is warm. Neurological: Mental Status: He is alert. Psychiatric: Behavior: Behavior normal. Lab/Radiology/Diagnostic Review: Dr. Eusebia Coleman has personally reviewed the diagnostic images. Laboratory review: Chemistry BMP Lab Results Component Value Date GLUCOSE 102 12/16/2015 CALCIUM 9.1 12/16/2015 SODIUM 137 12/16/2015 POTASSIUM 3.6 12/16/2015 CO2 23 12/16/2015 BUNSER 6 (L) 12/16/2015 CREATININE 0.80 12/16/2015 Echocardiogram V function 60% trileaflet with trace AR, PAP 25, RAP 10, aortic root 4.2cm Chest CT: 05/06/2021 Fusiform aorta 4.2 cm no saccular component, no mural thrombus no dissection. Stress Test:04/2021Negative for symptoms or ST or T wave changes. Chest CT:today shows Sinuses of Valsalva: Posterior commissure: 4.3 x [...] 3.2 cm, previously 3.4 x 3.2 cm. Assessment and Plan: Mr Capellan is a 71 year old gentleman with an ascending aortic aneurysm. Dr. Coleman reviewed his imaging from today and compared to last years imaging. His aorta is stable in size and has no new aortic wall abnormalities. He has no aortic valve pathology. He remains asymptomatic.She discussed there is always a risk of dissection or rupture but this is lower than a surgical intervention at this point. We discussed blood pressure control with an ideal blood pressure 110-120 systolic. 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 With my best regards, Tameka Mixon, MSN,ANP- Adult Nurse Practitioner [facility] Division of Cardiothoracic Surgery Cosigned by Eusebia Coleman MD at 08/04/2022 3:33 PM LAYOUT MECHANIC UT MECHANIC UT MECHANIC documented in this encounter Plan of Treatment Not on file documented as of this encounter Visit Diagnoses Diagnosis Aneurysm of ascending aorta without rupture (HCC)- Primary documented in this encounter Historical Medications * This list may reflect changes made after this encounter. cholecalciferol 400 unit capsuleIndication s:supplement Take 600 Units by mouth every morning added in this encounter Care Teams Learning Development Specialist Relationship Specialty Start Date End Date Corey Angel MD [address] [facility] [address] INTERNAL MEDICINE [place], [place] [id number] PCP - General Internal Medicine 06/18/21 documented as of this encounter
--- OUTSIDE RECORDS SUMMARY | 2024-09-30 09:22 | XMS_ITS | Encounter Summary ---
Author Organization [facility] Address [address] [facility] [address] [place] [address] Phone Care Team Providers Care Fire Range Technician Name Role Phone Corey Angel MD Primary Care Provider [phone] Encounter Details Date Type Department Care Team (Late st Contact Info) Description 02/02/2023 Orders Only [facility] Surgery [address] [facility] Advanced Medicine [address]th [place] [address] [place] [address] Eusebia Coleman MD [address] [facility] [address] [place] [address] Aneurysm of ascending aorta without rupture (HCC) (Primary Dx) Social History Tobacco Use Types Packs/Day Years Used Date Smoking Tobacco: Never Smokeless Tobacco: Never Alcohol Use Standard Drinks/Week Comments No 0 (1 standard drink = 0.6 oz pur e alcohol) Sex and Gender Information Value Date Recorded Sex Assigned at Not on file Legal Sex Male 2:49 AM POLICE DETECTIVE Gender Identity Male 05/22/2018 10:57 AM CDT Sexual Orientation Straight 11/03/2020 7: 01 PM POLICE DETECTIVE Occupation Industry Job Start Date Job End Date working Not on file Not on file Not on file documented as of this encounter Plan of Treatment Not on file documented as of this encounter Visit Diagnoses Diagnosis Aneurysm of ascending aorta without rupture (HCC)- Primary documented in this encounter Care Teams Fire Range Technician Relationship Specialty Start Date End Date Corey Angel MD [address] [facility] [address] [place] [id number] PCP - General Internal Medicine 06/18/21 documented as of this encounter
--- OUTSIDE RECORDS SUMMARY | 2024-09-30 09:22 | XMS_ITS | Encounter Summary ---
Author Organization [facility] Address [address] [facility] [address] [place] [address] Phone Care Team Providers Care Booking Prizer Name Role Phone Corey Angel MD Primary Care Provider [phone] Encounter Details Date Type Department Care Team (Late st Contact Info) Description 07/30/2022 Telephone [facility] Surgery [address] [facility] Advanced [facility] 8th [place] [address] [place] [address] Eusebia Coleman MD [address] [facility] [address] [place] [address] Social History Tobacco Use Types Packs/Day Years Used Date Smoking Tobacco: Never Smokeless Tobacco: Never Alcohol Use Standard Drinks/Week Comments No 0 (1 standard drink = 0.6 oz pur e alcohol) Sex and Gender Information Value Date Recorded Sex Assigned at Not on file Legal Sex Male 2:49 AM BINDING BENCH WORKER Gender Identity Male 05/22/2018 10:57 AM CDT Sexual Orientation Straight 11/03/2020 7: 01 PM BINDING BENCH WORKER Occupation Industry Job Start Date Job End Date working Not on file Not on file Not on file documented as of this encounter Miscellaneous Notes * Telephone Encounter - Deborah Zuluaag - 07/30/2022 11:54 AM CDT Having a chest CTA next week. Does he need to stop his iron supplement prior to his procedure? Thanks documented in this encounter Plan of Treatment Not on file documented as of this encounter Visit Diagnoses Not on filedocumented in this encounter Care Teams Booking Prizer Relationship Specialty Start Date End Date Corey Angel MD [address] [facility] [address] MED[address]INE [place] [id number] PCP - General Internal Medicine 06/18/21 documented as of this encounter
--- OUTSIDE RECORDS SUMMARY | 2024-09-30 09:23 | XMS_ITS | Encounter Summary ---
Author Organization [facility] Facility Care Team Providers Care Traffic Representative Name Role Phone Unavailable Primary Care Provider Unavailabl e Encounter Details Date Type Department Care Team (Late st Contact Info) Description 01/24/2007 - 01/24/2007 11:59 PM CDT Hospital Encounter [facility] James Gomez MD [address] [address] Social History Tobacco Use Types Packs/Day Years Used Date Smoking Tobacco: Never Assessed Sex and Gender Information Value Date Recorded Sex Assigned at Not on file Legal Sex Male 2:49 AM QUILLER MACHINE FIXER Gender Identity Male 05/22/2018 10:57 AM CDT Sexual Orientation Straight 11/03/2020 7: 01 PM QUILLER MACHINE FIXER documented as of this encounter Plan of Treatment Not on file documented as of this encounter Visit Diagnoses Not on filedocumented in this encounter
--- OUTSIDE RECORDS SUMMARY | 2024-09-30 09:23 | XMS_ITS | Encounter Summary ---
Author Organization 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 Social History Tobacco Use Types Packs/Day Years Used Date Smoking Tobacco: Never Assessed Sex and Gender Information Value Date Recorded Sex Assigned at Not on file Legal Sex Male 2:49 AM 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 ATTENDANT Gender Identity Male 05/22/2018 10:57 AM CDT Sexual Orientation Straight 11/03/2020 7: 01 PM VEHICLE SERVICE ATTENDANT documented as of this encounter Plan of Treatment Not on file documented as of this encounter Procedures Procedure Name Priority Date/Time Associated Diagnosis Comments CHEST RADIOGRAPHY, FRONTAL (AP), LATERAL Routine 12/16/2015 2:11 PM CDT PLASMA TROPONIN I Routine 12/16/2015 1:5 6 PM CDT PLASMA COMPREHENSIVE METABOLIC PANEL Routine 12/16/2015 1:56 PM CDT BLOOD CELL COUNT (CBC), MORPHOLOGIC EXAM Routine 12/16/2015 1:56 PM CDT ELECTROCARDIOGRAPHY (ECG) 12/16/2015 DISCHARGE LABORATORY CUMULATIVE REPORT 12/16/2015 documented in this encounter Results * CHEST RADIOGRAPHY, FRONTAL (AP), LATERAL (12/16/2015 2:11 PM CDT) Anatomical Region Laterality Modality N/A Radiographic Tonie ging 12/16/2015 2:11 PM CDT Narrative 12/16/2015 2:37 PM CDT 2 view chest HISTORY: Heart palpitations No prior chest x-rays available for comparison The heart size is normal. ??The pulmonary vascularity and lan are normal. ??The lungs are clear. Degenerative change of the thoracic spine is present. ??The soft tissues and bony thorax are otherwise normal diagnosis: No acute cardiopulmonary disease Electronically signed by: Destiny Marx M.D. Radiologist: DESTINY MARX ?? Attending: ??UNKNOWN, NOTINFILE ?? Requesting: HERO CARPENTER Requesting Fax: ?? Requesting ID: [id number] Attending Fax: ?? Attending ID: ?? [id number] Completed Time: ?? 12/16/2015 2:11 PM Dictated Time: ?12/16/2015 2:37 PM Transcribed Time: 12/16/2015 2:37 PM Signed by: ?DESTINY MARX ?? on 12/16/2015 2:37 PM Report To 1 ID: Report To 1 Name: , Report To 1 FAX: Report To 2 ID: Report To 2 Name: , Report To 2 FAX: Report To 3 ID: Report To 3 Name: , Report To 3 FAX: NextGen Order #: Procedure Note Provider, MD Eugenia - 01/24/2017 2 view chest HISTORY: Heart palpitations No prior chest x-rays available for comparison The heart size is normal. The pulmonary vascularity and lan are normal. The lungs are clear. Degenerative change of the thoracic spine is present. The soft tissues and bony thorax are otherwise normal diagnosis: No acute cardiopulmonary disease Electronically signed by: Destiny Marx M.D. Radiologist: DESTINY MARX Attending: CHUCK, CLIFF Requesting: HERO CARPENTER PADDY Requesting Requesting ID: [id number] Attending Attending ID: [id number] Completed Time: 12/16/2015 2:11 PM Dictated Time: 12/16/2015 2:37 PM Transcribed Time: 12/16/2015 2:37 PM Signed by: DESTINY MARX on 12/16/2015 2:37 PM Report To 1 ID: Report To 1 Name: , Report To 1 FAX: Report To 2 ID: Report To 2 Name: , Report To 2 FAX: Report To 3 ID: Report To 3 Name: , Report To 3 FAX: NextGen Order #: us Historical Provider MD AGARWAL XR PROCEDURES Final R esult * (ABNORMAL) Blood cell count (CBC), morphologic exam (12/16/2015 1:56 PM CDT) [facility] WBC 7.4 3.8 - 9.9 K/cumm HISTORICAL RESULTS Comment: Complete Blood Count with Automated Differential -- Effective Wednesday, December 09, 2015, the [facility] Laboratory changed hematology analyzers to the Sysmex XN 9000. ??Automated differential reporting now includes immature granulocyte percentage, comprised of metamyelocytes, myelocytes, and promyelocytes. ??Blasts will continue to be notated as part of the manual differential count. ??Reference ranges have also been revised. RBC 4.87 4.30 - 5.80 M/cumm HISTORICAL RESULTS Hgb 9.8(L) 13.0 - 17.5 g/dl HISTORICAL RESULTS Comment:Hemoglobin -- Effect koffi Wednesday, December 09, 2015, the [facility] Laboratory changed hematology analyzers to the Sysmex XN 9000. Reference ranges have been revised. Hct 33.0(L) 38.9 - 50.3 % HISTORICAL RESULTS Comment:Hematocrit -- Effect koffi Wednesday, December 09, 2015, the [facility] Laboratory changed hematology analyzers to the Sysmex XN 9000. Reference ranges have been revised. MCV 67.8(L) 81.3 - 96.4 fl HISTORICAL RESULTS MCH 20.1(L) 27.1 - 33.3 pg HISTORICAL RESULTS MCHC 29.7(L) 32.3 - 35.7 g/dl HISTORICAL RESULTS RDW 41.8 35.7 - 48.2 fl HISTORICAL RESULTS Rdw 17.6(H) 11.1 - 14.1 % HISTORICAL RESULTS Platelets 328 150 - 400 K/cumm HISTORICAL RESULTS Comment:Platelet Count -- Ef fective Wednesday, December 09, 2015, the [facility] Laboratory changed hematology analyzers to the Sysmex XN 9000. Low platelet counts will reflex to fluorescent counting, with superior accuracy. Reference ranges have been revised. MPV 10.5 9.1 - 12.3 fl HISTORICAL RESULTS Neutrophils 66.3 44.0 - 80.0 % HISTORICAL RESULTS Lymphocytes 17.9 13.0 - 44.0 % HISTORICAL RESULTS Monos 11.9(H) 2.0 - 11.0 % HISTORICAL RESULTS Eosinophils 2.8 0.0 - 6.0 % HISTORICAL RESULTS Basophils 0.8 0.0 - 3.0 % HISTORICAL RESULTS Immature granulocytes 0.3 0.0 - 1.0 % HISTORICAL RESULTS NRBC 0.0 0.0 - 0.2 % HISTORICAL RESULTS Neutrophils, abs 4.9 1.7 - 6.5 K/cumm HISTORICAL RESULTS Lymphocytes, abs 1.3 0.8 - 3.3 K/cumm HISTORICAL RESULTS Monocytes, absolute 0.9(H) 0.2 - 0.8 K/cumm HISTORICAL RESULTS Eosinophils, abs 0.2 0.0 - 0.5 K/cumm HISTORICAL RESULTS Basophils, abs 0.1 0.0 - 0.1 K/cumm HISTORICAL RESULTS Immature granulocyte, abs 0.020 0.00 - 0.10 K/cumm HISTORICAL RESULTS NRBC, abs 0.00 0.00 - 0.010 K/cumm HISTORICAL RESULTS Blood specimen (specimen) 12/16/2015 1:56 PM CDT us Hero Carpenter MD LAB BLOOD ORDERABLES Fin al Result HISTORICAL RESULTS * (ABNORMAL) Plasma comprehensive metabolic panel (12/16/2015 1:56 PM CDT) Sodium 137 136 - 146 mmol/L HISTORICAL RESULTS K, pl 3.6 3.3 - 4.9 mmol/L HISTORICAL RESULTS Chloride 106 98 - 108 mmol/L HISTORICAL RESULTS CO2 23 22 - 33 mmol/L HISTORICAL RESULTS BUN 6(L) 7 - 18 mg/dl HISTORICAL RESULTS Glucose 102 70 - 140 mg/dl HISTORICAL RESULTS Comment: Glucose is assumed to be non-fasting. ?? Fasting Glucose normal ranges are: 0 days - 2 months: ? 40 mg/dL - 100 mg/dL 2 months - 999 years: ?70 mg/dL - 99 mg/dL Creatinine 0.80 0.50 - 1.50 mg/dl HISTORICAL RESULTS eGFR >60 ml/min/1.7 3 m2 HISTORICAL RESULTS Comment: GFR Reference Range: = > 60 mL/min/1.73 m2 This result has been calculated assuming the patient is Non-. ??If the patient is , please multiply this result by 1.21. The GFR value is not recommended for medication dose adjustment for renal function, creatinine clearance values should be used. Calcium 9.1 8.5 - 10.5 mg/dl HISTORICAL RESULTS Bilirubin 0.7 0.1 - 1.2 mg/dl HISTORICAL RESULTS Protein, pl 7.8 6.0 - 8.5 g/dl HISTORICAL RESULTS Alb 3.9 3.4 - 5.0 g/dl HISTORICAL RESULTS Alk phos 99 38 - 126 IUnits/L HISTORICAL RESULTS ALT 28 17 - 63 IUnits/L HISTORICAL RESULTS AST 41 15 - 41 IUnits/L HISTORICAL RESULTS Plasma 12/16/2015 1:56 PM CDT Hero Carpenter MD LAB BLOOD ORDERABLES Fin al Result HISTORICAL RESULTS * Plasma troponin I (12/16/2015 1:56 PM CDT) Troponin I <0.01 0.00 - 0.04 ng/ml HISTORICAL RESULTS Comment: < 0.04 ng/mL ??No evidence of myocardial damage. 0.04 - 0.78 ng/mL Indeterminate-repeat analysis assess the possibility of myocardial damage. >0.78 ng/mL ??Consistent with myocardial damage. Plasma 12/16/2015 1:56 PM CDT Hero Carpenter MD LAB BLOOD ORDERABLES Fin al Result HISTORICAL RESULTS * DISCHARGE LABORATORY CUMULATIVE REPORT (12/16/2015) Narrative 12/16/2015 Ordered by an unspecified provider. Historical Provider LAB BLOOD ORDERABLES Crissy l Result * ELECTROCARDIOGRAPHY (ECG) (12/16/2015) Narrative 12/16/2015 Ordered by an unspecified provider. 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
--- OUTSIDE RECORDS SUMMARY | 2024-09-30 09:23 | XMS_ITS | Encounter Summary ---
Author Organization [facility] Facility Care Team Providers Care Slaughterer Religious Ritual Name Role Phone Unavailable Primary Care Provider Unavailabl e Encounter Details Date Type Department Care Team (Late st Contact Info) Description 09/29/2009 - 09/29/2009 11:59 PM CHEMICAL COMPOUNDER HELPER Hospital Encounter [facility] Bisi Garcia MD [address] [facility] [place] [address] Pain in joint, multiple sites Social History Tobacco Use Types Packs/Day Years Used Date Smoking Tobacco: Never Assessed Sex and Gender Information Value Date Recorded Sex Assigned at Not on file Legal Sex Male 2:49 AM 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
--- OUTSIDE RECORDS SUMMARY | 2024-09-30 09:23 | XMS_ITS | Encounter Summary ---
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 Gender Identity Male 05/22/2018 10:57 AM CDT Sexual Orientation Straight 11/03/2020 7: 01 PM DATA BASE ADMINISTRATOR documented as of this encounter Plan of Treatment Not on file documented as of this encounter Procedures Procedure Name Priority Date/Time Associated Diagnosis Comments SCAN - PATHOLOGY 05/03/2018 documented in this encounter Results * SCAN - PATHOLOGY (05/03/2018) us Provider Scanning Final Result documented in this encounter Visit Diagnoses Not on filedocumented in this encounter Care Teams Career Information Specialist Relationship Specialty Start Date End Date James Ospina MD [address] [facility] [address] [place] [address] PCP - General Endocrinology Diabetes & Metabolism 05/22/18 06/17/21 documented as of this encounter
--- OUTSIDE RECORDS SUMMARY | 2024-09-30 09:23 | XMS_ITS | Encounter Summary ---
Author Organization [facility] Address [address] [place] [address] Phone Care Team Providers Care Distribution Operations Manager Name Role Phone James Ospina MD Primary Care Provider [phone] Reason for Visit * Reason Comments Mohs Consultation Encounter Details Date Type Department Care Team (Late st Contact Info) Description 05/30/2018 1:00 PM CDT Office Visit [facility] Dermatology [address] [facility] [address] [place] [address] Rosaline Wan MD [address] [place], [place] [id number] 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) Social History Tobacco Use Types Packs/Day Years Used Date Smoking Tobacco: Never Smokeless Tobacco: Never Sex and Gender Information Value Date Recorded Sex Assigned at Not on file Legal Sex Male 2:[address] Gender Identity Male 05/22/2018 10:57 AM CDT Sexual Orientation Straight 11/03/2020 7: [address]ER documented as of this encounter Last Filed Vital Signs Vital Sign Reading Time Taken Comments Blood Pressure 153/96 05/30/2018 1:38 PM CDT Pulse - - Temperature - - Respiratory Rate - - Oxygen Saturation - - Inhaled Oxygen Concentration - - Weight - - Height - - Body Mass Index - - documented in this encounter Progress Notes * Estela Walker MA - 05/30/2018 1:00 PM CDT Mohs Consult Mohs AUC Score: 8 Date of visit: 05/30/18 Doctor: Referred by: Dr. Marquez Skin cancer diagnosis: SCC Anatomic Location(s): Left latter-day Previous Mohs surgery: No Pacemaker: No Defibrillator: No Photo taken: Yes Pre-Op instructions provided and explain: Yes Family member or caregiver present during office visit: No Pre-Op Antibiotics: None Outside Repair: No -------- Attending note: History The patient presents with ski ncancer on left latter-day, possibly treated before with LN2 per pt.. Duration: 9 months No pain, no pruritis, no bleeding, no color changes, +crusting/drainage ROS: Hx anemia tx'ed with Fe ZHU fatty liver No easy bleeding nor bruising All other systems negative Allergies/Medications/PMH: Reviewed in EMR. PHYSICAL EXAM: Vitals Signs: Vitals BP 153/96 (BP Location: Right arm, Patient Position: Sitting) GENERAL: Appears well. No acute distress. ORIENTATION: Alert and oriented x3. MOOD/AFFECT: Normal affect. THOMPSON SKIN TYPE: II FACE: left latter-day 0.7x0.7cm pink macule EARS: No abnormalities noted. SCALP/HAIR: No abnormalities noted. EYES/EYELIDS: No scleral icterus. No abnormalities noted of conjunctiva or eyelids. LIPS/ORAL MUCOSA: No abnormalities noted. LYMPH: No adenopathy cervical, supraclavicular, occipital Assessment and Plan 1. Scc left latter-day Mohs-- auc 8 ; indication: location, prior treatment Treatment options including non surgical options, were reviewed and included: radiation, surgical excision, EDC, LN2, Aldara, Efudex, Mohs surgery, observation. Risks, benefits were discussed, including but not limited to: See below. Lesion identified and verified with patient assistance using handheld mirror. Med restrictions: none Prophylaxis: none Special considerations (pacemaker, defibrillator, epi sensitivity, allergy to anesthesia, etc): none Treatment options reviewed as above. Risks were discussed, including: scarring, bleeding, infection, pain, swelling, dyspigmentation, asymmetry, deformity, recurrences, need for further treatment, allergy, motor and sensory nerve injury. The patient and /or guardian demonstrated understanding of the points discussed. Time was provided for patient questions: discussed primary vs second intent in this location and scar. Letters to: Referring MD: Alma Scheduling: Mohs: MW 1T, 1R Cosigned by Rosaline Wan MD at 06/01/2018 1:01 PM CDT Associated attestation - Rosaline Wan MD - 06/01/2018 1:01 PM CDT I have seen and examined the patient. I agree with the findings and plan of care . 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 esomeprazole DR (NexIUM) 20 mg capsuleIndicatio ns:Treatment of Non-Bleeding Gastric Disorder,gerd Take 1 capsule (20 mg total) by mouth daily before breakfast added in this encounter Care Teams Distribution Operations Manager Relationship Specialty Start Date End Date James Ospina MD [address] [place] [address] PCP - General Endocrinology Diabetes & Metabolism 05/22/18 06/17/21 documented as of this encounter
--- OUTSIDE RECORDS SUMMARY | 2024-09-30 09:23 | XMS_ITS | Encounter Summary ---
Author Organization [facility] Healthcare Address [address] [place] [address] Care Team Providers Care Target Aircraft Technician Name Role Phone James Ospina MD Primary Care Provider [phone] Encounter Details Date Type Department Care Team (Late st Contact Info) Description 06/11/2018 Telephone [facility] [address] [place] [id number] Therese Alba MD [address] [facility] [address] [place] [address] Social History Tobacco Use Types Packs/Day Years Used Date Smoking Tobacco: Never Smokeless Tobacco: Never Sex and Gender Information Value Date Recorded Sex Assigned at Not on file 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 and I have reviewed the resident's note. * Telephone Encounter - Therese Alba MD - 06/11/2018 5:13 PM CDT 67 y/o WM s/p mohs surgery for SCC on the L taoist healing by 2nd intention performed 06/09. The patient called the on-call resident because after he removed his bandage today, he noted the base of the wound appeared white . He denied redness, yellow drainage, swelling, pain, fever/chills. Reassured patient that white appearance is likely either residual gel foam or normal granulation tissue forming. He was offered an earlier wound check appointment and was instructed to call the office tomorrow to schedule if desired. Otherwise, he will continue wound care as outlined In the post-op instructions. All questions were answered. This plan was discussed with Dr. Erickson. Therese Alba MD PGY-3 --------- Discussed phone call with resident. Likely gelfoam or vaseline or healing tissue. Advised resident to notify pt that he can come in for sooner wound check on Tuesday06/12/18 or this week, or anytime sooner if concerned. documented in this encounter Plan of Treatment Not on file documented as of this encounter Visit Diagnoses Not on filedocumented in this encounter Care Teams Target Aircraft Technician Relationship Specialty Start Date End Date James Ospina MD [address] [address] PCP - General Endocrinology Diabetes & Metabolism 05/22/18 06/17/21 documented as of this encounter
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
--- OUTSIDE RECORDS SUMMARY | 2024-09-30 09:23 | XMS_ITS | Encounter Summary ---
Author Organization [facility] Address [address] [place] [address] Phone Care Team Providers Care Poultry Farmworker Name Role Phone James Ospina MD Primary Care Provider [phone] Reason for Visit * Reason Comments Wound Check Encounter Details Date Type Department Care Team (Late st Contact Info) Description 07/11/2018 1:30 PM CDT Office Visit [facility] Dermatology [facility] [facility] [address] [place] [address] Squamous cell carcinoma of skin of left mandaeism - Left (Primary Dx) Social History Tobacco Use Types Packs/Day Years Used Date Smoking Tobacco: Never Smokeless Tobacco: Never Sex and Gender Information Value Date Recorded Sex Assigned at Not on file 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 Patient has no complaints. Second intention wound has clean granulation tissue and is epithelializing at the edges. There is no evidence of infection, hematoma, or dehiscence. No further wound care needed. Patient was informed to massage the area if it feels raised to flatten out the scar three times a day. Photos taken:Yes Patient was instructed to return to our office in [place] , and to follow up in 3-4 months, or as previously scheduled, with their general supervisor shed workers. Sunscreen use, self-monitoring, and sun protection tips briefly reviewed. Dr. Magalie Erickson examined the patient and agreed with the above findings. --------- Attending note: O: wound closed, epithelialized, slightly pink scar A: healing appropriately P: scar massage tid x 1month + , if desired. Wound will continue to heal and scar will continue to improve Spf 30+ Rest as above Cosigned by Magalie Erickson MD at 07/14/2018 6:55 PM CDT Associated attestation - Magalie Erickson MD - 07/14/2018 6:55 PM CDT I have seen and examined the patient. I agree with the findings and plan of care . documented in this encounter Plan of Treatment Not on file documented as of this encounter Visit Diagnoses Diagnosis Squamous cell carcinoma of skin of left mandaeism - Left- Primary documented in this encounter Care Teams Poultry Farmworker Relationship Specialty Start Date End Date James Ospina MD [address] [place] [address] PCP - General Endocrinology Diabetes & Metabolism 05/22/18 06/17/21 documented as of this encounter
--- OUTSIDE RECORDS SUMMARY | 2024-09-30 09:23 | XMS_ITS | Encounter Summary ---
Author Organization [facility] Facility Care Team Providers Care Director Emergency Department Name Role Phone Unavailable Primary Care Provider Unavailabl e Encounter Details Date Type Department Care Team (Latest Contact Info) Description 04/26/2016 10:57 AM CDT - 04/26/2016 11:59 PM CDT Hospital Encounter [facility] Hammad Cunningham MD [address] [place] [address] Primary osteoarthritis of both knees Social History Tobacco Use Types Packs/Day Years Used Date Smoking Tobacco: Never Assessed Sex and Gender Information Value Date Recorded Sex Assigned at Not on file Legal Sex Male 2:49 AM EXECUTIVE ASSOCIATE Gender Identity Male 05/22/2018 10:57 AM CDT Sexual Orientation Straight 11/03/2020 7: 01 PM EXECUTIVE ASSOCIATE documented as of this encounter Plan of Treatment Not on file documented as of this encounter Procedures Procedure Name Priority Date/Time Associated Diagnosis Comments KNEE RADIOGRAPHY, FRONTAL (AP), LATERAL, OBLIQUE Routine 04/26/2016 11:13 AM CDT KNEE RADIOGRAPHY, FRONTAL (AP), LATERAL, OBLIQUE Routine 04/26/2016 11:13 AM CDT documented in this encounter Results * KNEE RADIOGRAPHY, FRONTAL (AP), LATERAL, OBLIQUE (04/26/2016 11:13 AM CDT) Anatomical Region Laterality Modality N/A Radiographic Tonie ging 04/26/2016 11:1 3 AM CDT Narrative 04/26/2016 12:05 PM CDT Ze HERNANDEZ FINAL REPORT ACC# ??Date Time ??Exam [id number] Apr 26, 2016 11:13:00 43020 Knee 3 views R [id number] Apr 26, 2016 11:13:00 05241 Knee 3 views L EXAMINATION: ? 1. Left knee 3 views. 2. Right knee 3 views. HISTORY: ??Bilateral knee pain FINDINGS: ?? Three views of each knee are submitted for interpretation without comparison. There is mild tricompartmental knee osteoarthritis bilaterally. There is no fracture in either knee. Trace bilateral knee effusions are present. IMPRESSION: ?? Mild bilateral knee osteoarthritis. Requested By: HAMMAD CUNNINGHAM M.D. Dictated By: ?? Ze HERNANDEZ ??on Apr ??2015 12:05P This document has been electronically signed by: Ze HERNANDEZ on Apr?2015 12:05P [id number] Procedure Note Provider, Eugenia, - 01/24/2017 Ze HERNANDEZ FINAL REPORT ACC# Date Time Exam [id number] Apr 26, 2016 11:13:00 12239 Knee 3 views R [id number] Apr 26, 2016 11:13:00 07474 Knee 3 views L EXAMINATION: 1. Left knee 3 views. 2. Right knee 3 views. HISTORY: Bilateral knee pain FINDINGS: Three views of each knee are submitted for interpretation without comparison. There is mild tricompartmental knee osteoarthritis bilaterally. There is no fracture in either knee. Trace bilateral knee effusions are present. IMPRESSION: Mild bilateral knee osteoarthritis. Requested By: HAMMAD CUNNINGHAM M.D. Dictated By: Ze HERNANDEZ on Apr 26 2016 12:05P This document has been electronically signed by: Ze HERNANDEZ on Apr 26 2016 12:05P [id number] us Historical Provider IMG XR PROCEDURES Final R esult * KNEE RADIOGRAPHY, FRONTAL (AP), LATERAL, OBLIQUE (04/26/2016 11:13 AM CDT) Anatomical Region Laterality Modality N/A Radiographic Tonie ging 04/26/2016 11:1 3 AM CDT Narrative 04/26/2016 12:05 PM CDT Ze HERNANDEZ FINAL REPORT ACC# ??Date Time ??Exam [id number] Apr 26, 2016 11:13:00 29184 Knee 3 views R [id number] Apr 26, 2016 11:13:00 97529 Knee 3 views L EXAMINATION: ? 1. Left knee 3 views. 2. Right knee 3 views. HISTORY: ??Bilateral knee pain FINDINGS: ?? Three views of each knee are submitted for interpretation without comparison. There is mild tricompartmental knee osteoarthritis bilaterally. There is no fracture in either knee. Trace bilateral knee effusions are present. IMPRESSION: ?? Mild bilateral knee osteoarthritis. Requested By: HAMMAD CUNNINGHAM M.D. Dictated By: ?? BRIANDA ACOSTA M.D. F ??on Apr ??2015 12:05P This document has been electronically signed by: Ze HERNANDEZ on Apr ??2015 12:05P [id number] Procedure Note Provider, MD Eugenia - 01/24/2017 Ze HERNANDEZ FINAL REPORT ACC# Date Time Exam [id number] Apr 26, 2016 11:13:00 94756 Knee 3 views R [id number] Apr 26, 2016 11:13:00 34055 Knee 3 views L EXAMINATION: 1. Left knee 3 views. 2. Right knee 3 views. HISTORY: Bilateral knee pain FINDINGS: Three views of each knee are submitted for interpretation without comparison. There is mild tricompartmental knee osteoarthritis bilaterally. There is no fracture in either knee. Trace bilateral knee effusions are present. IMPRESSION: Mild bilateral knee osteoarthritis. Requested By: HAMMAD CUNNINGHAM M.D. Dictated By: Ze HERNANDEZ on Apr 26 2016 12:05P This document has been electronically signed by: Ze HERNANDEZ on Apr 26 2016 12:05P [id number] us Historical Provider MD AGARWAL XR PROCEDURES Final R esult documented in this encounter Visit Diagnoses Diagnosis Primary osteoarthritis of both knees documented in this encounter
--- OUTSIDE RECORDS SUMMARY | 2024-09-30 09:23 | XMS_ITS | Encounter Summary ---
Author Organization [facility] Facility Care Team Providers Care Control Clerk Food And Beverage Name Role Phone Unavailable Primary Care Provider Unavailabl e Encounter Details Date Type Department Care Team (Late st Contact Info) Description 02/01/2007 - 02/01/2007 11:59 PM CDT Hospital Encounter [facility] James Gomez MD [address] [address] Social History Tobacco Use Types Packs/Day Years Used Date Smoking Tobacco: Never Assessed Sex and Gender Information Value Date Recorded Sex Assigned at Not on file Legal Sex Male 2:49 AM SECURITIES TELLER Gender Identity Male 05/22/2018 10:57 AM CDT Sexual Orientation Straight 11/03/2020 7: 01 PM SECURITIES TELLER documented as of this encounter Plan of Treatment Not on file documented as of this encounter Visit Diagnoses Not on filedocumented in this encounter
--- OUTSIDE RECORDS SUMMARY | 2024-09-30 09:23 | XMS_ITS | Encounter Summary ---
Author Organization [facility] Facility Care Team Providers Care Accelerator Technician Name Role Phone Unavailable Primary Care Provider Unavailabl e Encounter Details Date Type Department Care Team (Late st Contact Info) Description 02/02/2016 - 02/02/2016 11:59 PM CDT Hospital [facility] MD [address] [address] Palpitations Social History Tobacco Use Types Packs/Day Years Used Date Smoking Tobacco: Never Assessed Sex and Gender Information Value Date Recorded Sex Assigned at Not on file Legal Sex Male 2:49 AM DATA ENTRY OPERATOR Gender Identity Male 05/22/2018 10:57 AM CDT Sexual Orientation Straight 11/03/2020 7: 01 PM DATA ENTRY OPERATOR documented as of this encounter Plan of Treatment Not on file documented as of this encounter Visit Diagnoses Diagnosis Palpitations documented in this encounter
--- OUTSIDE RECORDS SUMMARY | 2024-09-30 09:23 | XMS_ITS | Encounter Summary ---
Author Organization [facility] Address [address] [place] [address] Phone Care Team Providers Care Chemist Inorganic Name Role Phone James Ospina MD Primary Care Provider [phone] Reason for Visit * Reason Comments Mohs Procedure Encounter Details Date Type Department Care Team (Latest Contact Info) Description 06/09/2018 9:30 AM CDT Procedure visit [facility] Dermatology [address] [facility] [address] [place] [address] Magalie Erickson MD [address] [place], [place] [id number] 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) Social History Tobacco Use Types Packs/Day Years Used Date Smoking Tobacco: Never Smokeless Tobacco: Never Sex and Gender Information Value Date Recorded Sex Assigned at Not on file Legal Sex Male 2:49 AM ELEMENTARY SCHOOL TEACHER'S AIDE Gender Identity Male 05/22/2018 10:57 AM CDT Sexual Orientation Straight 11/03/2020 7: 01 PM ELEMENTARY SCHOOL TEACHER'S AIDE documented as of this encounter Last Filed Vital Signs Vital Sign Reading Time Taken Comments Blood Pressure 123/88 06/09/2018 11:33 AM CDT Pulse 81 06/09/2018 11:33 AM CDT Temperature - - Respiratory Rate - - Oxygen Saturation 95% 06/09/2018 11:33 AM CDT Inhaled Oxygen Concentration - - Weight - - Height - - Body Mass Index - - documented in this encounter Progress Notes * Jennie Guillermo MA - 06/09/2018 9:30 AM CDT Time out Conducted According To Policy: [address] [facility] Mohs Micrographic Surgery Operative Record Admit/Discharge BP: 132/91 BP: 123/88 P: 79 P: 81 O2 sat: 94% O2 sat: 95% Allergies: NKDA Intra-Operative Meds: none Pre-Op antibiotics: none Time Taken: 1% Lidocaine with Epinephrine 1:1000 Total local anesthetic injected: 3cc Other: Pacemaker: N Defibrillator: N Pre-Op Photos: Y Post-Op Photos: Y Repair: Dr. Erickson Lesion ID DX Site # Stg Pre-size Post size Repair/Final size K/ [id number] SCC Left moravian 1 0.7cm x 0.7cm 1.0cm x 1.0cm 1.0cm x 1.0cm 2nd intention Type of Sutures used: none Post-Op Care/Dressing: Gelfoam, Telfa, Gauze, Paper tape Other: Miscellaneous Notes: Patient Tolerance: No Complications Post-Op Wound Care Instructions: Written: Y Verbal: Y Sig other/Family member present: N Post-Op Prescriptions: none Follow Up: RTC in 30 days for suture removal/wound check Signatures: RN/MA: YARI Kim RMA Attenting Physician: Magalie Erickson Attending note: Operation Mohs micrographic surgery Preoperative Diagnosis: above Postoperative Diagnosis: same Location: above Preoperative Size: above Postoperative Size: above Surgeon: Magalie Erickson MD Hone Operator: Jennie Guillermo MA; Delio Kaye MA Escalator Installer: Vj uHghes Anesthesia 1% lidocaine with epinephrine, 1:100,000. Indications (Indicate all that apply): location, prior treatment, AUC 8 Preparation The patient was brought into the operating room, donned a gown and surgical cap and lay down on theoperating table. The surgical site was prepped with an antiseptic solution, infiltrated with local anesthetic and draped with sterile sheets and towels. This was repeated for each surgical stage of the procedure. Procedure The lesion was aggressively debulked with a scalpel and dermal curet. A layer of tumor-containing tissue with a thin margin of normal-appearing tissue was excised. Hemostasis was achieved with spot electrocoagulation and suture ligatures as needed. The resected tissue was oriented relative to the surgical defect in the patient and a map of the defect was drawn. Orientation was aided with alberts lowe around the defect. A pressure dressing was affixed to the defect, the skin was cleansed of antiseptic solution and thepatient was taken back to the waiting room. The resected tissue was divided into appropriately sized specimens while maintaining orientation relative to the map. The specimens were individually marked with tissue dyes with corresponding markings on the map. The specimens were individually processed as horizontal frozen sections that allowed examination ofthe entire superficial peripheral as well as deep margins. The frozen sections of each specimen were stained with hematoxylin and eosin, and systematically examined by the surgeon for the presence of tumor. If tumor cells were found in any margin, a notation in red was made on the map and the patient was returned to the operating room for additional surgery directed only at the areas with residual tumor. The preparation and steps 2-9 were repeated until no more tumor cells were identified in any of the horizontal frozen sections. Stage 1 included multiple microscopic sections of 2 tissue specimens. At this point, no further tumor cells were identified. Tumor eradication was complete after a totalof 1 stage of surgery in which multiple microscopic sections of 2 tissue specimens were examined. Wound Management The defect will be allowed to heal by second intention. If the resulting scar is not acceptable, a scar revision may be performed at a later date. A gelfoam pressure dressing was applied to the defect. The patient was given careful wound care instructions in verbal and written form including a 24-hour pager number in case a problem should arise. The patient was instructed to report to the nearest ER in an emergency situation. The patient was discharged in stable condition. Dr. Erickson personally performed or supervised the entire procedure. Cosigned by Magalie Erickson MD at 06/13/2018 9:26 AM CDT Associated attestation - Magalie Erickson MD - 06/13/2018 9:26 AM CDT I have seen and examined the patient. I agree with the findings and plan of care . 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
--- OUTSIDE RECORDS SUMMARY | 2024-09-30 09:23 | XMS_ITS | Encounter Summary ---
Author Organization [facility] Facility Care Team Providers Care Roller Man Name Role Phone Unavailable Primary Care Provider Unavailabl e Encounter Details Date Type Department Care Team (Late st Contact Info) Description 05/16/2010 12:30 PM CDT - 05/16/2010 4:03 PM CDT Hospital Encounter [facility] Kalus Marshall MD [address] [facility] [address] [place] [address] Other malaise and fatigue Social History Tobacco Use Types Packs/Day Years Used Date Smoking Tobacco: Never Assessed Sex and Gender Information Value Date Recorded Sex Assigned at Not on file Legal Sex Male 2:49 AM WATCH LEADER Gender Identity Male 05/22/2018 10:57 AM CDT Sexual Orientation Straight 11/03/2020 7: 01 PM WATCH LEADER documented as of this encounter Plan of Treatment Not on file documented as of this encounter Visit Diagnoses Diagnosis Other malaise and fatigue documented in this encounter
--- OUTSIDE RECORDS SUMMARY | 2024-09-30 09:23 | XMS_ITS | Encounter Summary ---
Author Organization [facility] Address [address] [place] [address] Phone Care Team Providers Care Cloth Washer Back Tender Name Role Phone James Ospina MD Primary Care Provider [phone] Reason for Referral * Diagnostic Imaging (Routine) - Closed Specialty Diagnoses / Procedures Referred By Hoang zavala Referred To Contact Diagnoses Right knee pain, unspecified chronicity Procedures XR Knee Right 3 Views Suleiman Hamilton PA Phone: tel: fax: [facility] [address] Referral ID Status Reason Start Date Expiration Date Visits Re quested Visits Authorized [id number] Closed 08/28/2018 03/08/2020 1 1 ATIONS SCHEDULER Reason for Visit * Reason Comments Pain Encounter Details Date Type Department Care Team (Late st Contact Info) Description 08/30/2018 1:00 PM OPERATIONS SCHEDULER Office Visit [facility] Orthopaedic Surgery [address] [facility] [address] [place] [phone] Suleiman Hamilton PA [address] [place] [address] Right knee pain, unspecified chronicity (Primary Dx); Pain in both knees, unspecified chronicity Social History Tobacco Use Types Packs/Day Years Used Date Smoking Tobacco: Never Smokeless Tobacco: Never Alcohol Use Standard Drinks/Week Comments No 0 (1 standard drink = 0.6 oz pur e alcohol) Sex and Gender Information Value Date Recorded Sex Assigned at Not on file Legal Sex Male 2:49 AM OPERATIONS SCHEDULER Gender Identity Male 05/22/2018 10:57 AM CDT Sexual Orientation Straight 11/03/2020 7: 01 PM OPERATIONS SCHEDULER Occupation Industry Job Start Date Job End Date working Not on file Not on file Not on file documented as of this encounter Last Filed Vital Signs Vital Sign Reading Time Taken Comments Blood Pressure - - Pulse - - Temperature - - Respiratory Rate - - Oxygen Saturation - - Inhaled Oxygen Concentration - - Weight 117.7 kg (259 lb 8 oz) 08/30/2018 1:17 PM OPERATIONS SCHEDULER Height 178.4 cm (5' 10.25 ) 08/30/2018 1:[address] Body Mass Index 36.97 08/30/2018 1:17 PM OPERATIONS SCHEDULER documented in this encounter Ordered Prescriptions Prescription Sig Dispense Quantity Refills Last Filled Start Date End Date meloxicam (MOBIC) 7.5 mg tabletIndications: Osteoarthritis Take 1 tablet (7.5 mg total) by mouth daily. 30 tablet 2 08/30/2018 05/28/2019 documented in this encounter Progress Notes * Suleiman Hamilton PA - 08/30/2018 1:00 PM CST ESTABLISHED PATIENT VISIT CHIEF COMPLAINT: Chief Complaint Patient presents with ??? Right Knee - Pain HISTORY OF PRESENT ILLNESS: 67-year-old gentleman previously seen by Dr. Cunningham for left knee suspected meniscal tear month. Patient denies any specific injuries but reports he was carrying some boxes and afterwards noticed pain in the medial side of the right knee the next day. Had a difficult time bearing weight for a few days and it is slowly getting better. He takes Aleve on an as-needed basis. Patient states he had similar symptoms on the contralateral side in 2016 he received a steroid injection from Dr. Cunningham which was helpful. Today he denies any mechanical symptoms in the right side. No significant swelling. PHYSICAL EXAMINATION: Stands 5 ft 10, 259 lb, BMI 37. Patient transfer roc-sh-metgd easily ambulates with a slow steady gait no assistive devices. No obvious signs of antalgia. Neutral alignment right knee. Inspection right knee fails to demonstrate signs of infection joint effusion. No significant tenderness over the medial and or lateral joint line today. No evidence Bourne cyst. Mild patellofemoral crepitus. Active range of motion right knee 3??-125?? with pain noted at terminal knee extension. Right knee ligamentously stable x4. Negative James's exam. Mild dependent edema both lower extremities. Quadriceps strength 4+ out of 5 on the right. No pain with provocative right hip maneuvers. XRAYS/REVIEW OF STUDIES: X-rays taken today three views of the right knee in a weight-bearing position revealed mild degenerative changes of the medial patellofemoral compartments bilaterally ASSESSMENT/PLAN: Mild right knee osteoarthritis with suspected acute medial meniscus tear improving Today we discussed conservative treatment options available. At this point, patient is content withcontinued use of oral nonsteroidals and activity modification. Recommend we try some meloxicam 7.5 mg tabs 1 tab p.o. q.d. with the option to titrate up to twice daily if necessary. Has a history of GERD he is on a PPI. Remind him not to take the Aleve with the meloxicam. Outpatient physical therapy directed at range of motion strength of the right lower extremity. If he has worsening symptoms hewill call the office will proceed with a right knee intra-articular injection of steroid. Patient seems comfortable with today's plan of care will follow up on an as-needed basis. Suleiman Hamilton PA-C [facility] Orthopedic Surgery ATIONS SCHEDULER documented in this encounter Plan of Treatment Not on file documented as of this encounter Results * XR Knee Right 3 Views (08/30/2018 12:58 PM OPERATIONS SCHEDULER) Anatomical Region Laterality Modality Lower Extremities, Knee Right Computed Radiography 08/30/2018 1:28 PM OPERATIONS SCHEDULER Impressions 08/30/2018 1:28 PM OPERATIONS SCHEDULER Unchanged mild right knee osteoarthritis with a new small effusion. Electronically signed by: James Cunningham M.D. Narrative 08/30/2018 1:28 PM OPERATIONS SCHEDULER EXAMINATION: Right knee, 3 views HISTORY: ??Right [...] Visit Diagnoses Diagnosis Right knee pain, unspecified chronicity- Primary Pain in both knees, unspecified chronicity Right knee pain, unspecified chronicity documented in this encounter Discontinued Medications Medication Sig Discontinue Reason Start Date End Da te naproxen (ANAPROX,ALEVE) 220 mg tablet Take by mouth 2 (two) times a day with meals. Drug interaction 08/30/2018 documented as of this encounter Historical Medications * This list may reflect changes made after this encounter. naproxen (ANAPROX,ALEVE) 220 mg tablet Take by mouth 2 (two) times a day with meals. 08/30/2018 FLUZONE HIGH-DOSE 2017-, PF, 180 mcg/0.5 mL syringe 07/24/2018 12/02/2023 added in this encounter Care Teams Cloth Washer Back Tender Relationship Specialty Start Date End Date James Ospina MD [address] [address] PCP - General Endocrinology Diabetes & Metabolism 05/22/18 06/17/21 documented as of this encounter
--- OUTSIDE RECORDS SUMMARY | 2024-09-30 12:33 | XMS_ITS | Clinical Summary ---
Author Organization [facility] Address [facility] [facility] [place], [place] [address] [place] [address] Care Team Providers Care Body Former Name Role Phone Corey Angel MD Primary Care Provider [phone] Allergies No known active allergies Medications rosuvastatin [...] Squamous cell carcinoma of skin of left advent 0 05/30/2018 Knee pain 04/22/2016 Resolved Problems [...] this topic Insurance HUMANA HUMANA Care Teams Body Former Relationship Specialty Start Date End Date Corey Angel MD [address] [place] [phone] PCP - General INTERNAL MEDICINE 02/25/21
--- OUTSIDE RECORDS SUMMARY | 2024-09-30 12:33 | XMS_ITS | Encounter Summary ---
Author Organization [facility] Address [address] [place] [address]. [place], [place] [address] [place] [address] Care Team Providers Care Field Investigator Name Role Phone Corey Hernández MD Primary Care Provider [phone] Reason for Visit * Reason Onset Date Comments Holter Monitor 12/21/2023 * Imaging (Routine) - Closed Specialty Diagnoses / Procedures Referred By Niraliac t Referred To Contact CARDIOLOGY Diagnoses Bradycardia Palpitations Procedures CLINIC - OUTPATIENT EVENT RECORDER (ECG) UP TO 30 DAYS COMPLETE (Holter) Diego Muse MD 3 [facility] [address] [place] [address] Phone: tel: fax: Referral ID Status Reason Start Date Expiration Date Visits Re quested Visits Authorized [id number] Closed 12/09/2023 12/08/2024 1 1 Encounter Details Date Type Department Care Team (Late st Contact Info) Description 12/21/2023 12:00 PM CDT Telephone [facility] [address] [facility] [address] [place] [address] Diego Muse MD 3 [facility] [address] [place] [address] Holter Monitor Social History Tobacco Use Types Packs/Day Years Used Date Smoking Tobacco: Never Smokeless Tobacco: Never Sex and Gender Information Value Date Recorded Sex Assigned at Not on file Legal Sex Male 5:37 PM CDT Gender Identity Not on file Sexual Orientation Not on file documented as of this encounter Progress Notes * Nayeli Judge, Accounting Supervisor - 12/21/2023 10:18 AM CDT 7 Day BG Sent To Patient [id number] shipping [phone] return documented in this encounter Plan of [...] REPORT Patient Name: ??Clem Capellan : ??1950 Manager Social Responsibility Date: 01/02/2024 Performed At: [facility] [place] Interpreting Road Marker: ?? Dr. Muse PCP: ??COREY HERNÁNDEZ MD [...] duration rate 110, 3.4-second duration rate 110 OK 0.18, QRS 0.08, QTc 0.41 No ??symptoms noted CONCLUSION: Sinus rhythm, rates 45-112 with average rate 63 Periods of mild sinus bradycardia No pauses Low frequency PVCs Isolated 4.7-second run of accelerated idioventricular rhythm rate 100 3 short runs of nonsustained atrial tachycardia-11.7-second duration rate 120, 4.6-second duration rate 110, 3.4-second duration rate 110 OK 0.18, QRS 0.08, QTc 0.41 No ??symptoms noted us Diego Muse MD CV VASCULAR ORDERABLES Final Result [facility] documented in this encounter Visit Diagnoses Diagnosis Bradycardia Other specified cardiac dysrhythmias Palpitations documented in this encounter Care Teams Field Investigator Relationship Specialty Start Date End Date Corey Hernández MD [address] [place] [address] PCP - General INTERNAL MEDICINE 02/25/21 documented as of this encounter
--- OUTSIDE RECORDS SUMMARY | 2024-09-30 12:33 | XMS_ITS | Encounter Summary ---
Author Organization [facility] Address [address] [place] [address]. [place], [place] [address] [place] [address] Care Team Providers Care Analyst Food And Beverage Name Role Phone Corey Angel MD Primary Care Provider [phone] Encounter Details Date Type Department Care Team [...] on filedocumented in this encounter Care Teams Analyst Food And Beverage Relationship Specialty Start Date End Date Corey Angel MD [address] [place] [address] PCP - General INTERNAL MEDICINE 02/25/21 documented as of this encounter
--- OUTSIDE RECORDS SUMMARY | 2024-09-30 12:33 | XMS_ITS | Encounter Summary ---
Author Organization [facility] Address [address] [place] [address]. [place], [place] [address] [place] [address] Care Team Providers Care Director Enterprise Data Architecture Name Role Phone Corey Angel MD Primary Care Provider [phone] Encounter Details Date Type Department Care Team [...] on filedocumented in this encounter Care Teams Director Enterprise Data Architecture Relationship Specialty Start Date End Date Corey Angel MD [address] [place] [address] PCP - General INTERNAL MEDICINE 02/25/21 documented as of this encounter
--- OUTSIDE RECORDS SUMMARY | 2024-09-30 12:33 | XMS_ITS | Encounter Summary ---
Author Organization [facility] Address [address] [place] [address]. [employer] [place], [place] [address] [place] [address] Care Team Providers Care Grid Inspector Name Role Phone Corey Hernández MD Primary Care Provider [phone] Reason for Referral * Imaging (Routine) - Closed Specialty Diagnoses / Procedures Referred By Contac t Referred To Contact RADIOLOGY Diagnoses Aneurysm of ascending aorta without rupture (CMS/HCC) Procedures CTA CHEST Diego Muse MD 3 [facility] [address] [place] [address] Phone: tel: fax: Referral ID Status Reason Start Date Expiration Date Visits Re quested Visits Authorized [id number] Closed 12/09/2023 06/15/2024 1 1 * Imaging (Routine) - Closed Specialty Diagnoses / Procedures Referred By Contac t Referred To Contact CARDIOLOGY Diagnoses Bradycardia Palpitations Procedures CLINIC - OUTPATIENT EVENT RECORDER (ECG) UP TO 30 DAYS COMPLETE (Holter) Diego Muse MD 3 [facility] [address] [place] [address] Phone: tel: fax: Referral ID Status Reason Start Date Expiration Date Visits Re quested Visits Authorized [id number] Closed 12/09/2023 12/08/2024 1 1 Reason for Visit * Reason Comments Coronary Artery Disease 5mo Aortic Valve Disorder Hypertension Encounter Details Date Type Department Care Team (Latest Contact Info) Description 12/09/2023 11:00 AM CDT Office Visit [facility] [address] Diego Muse MD 3 [facility] [address] [place] [address] Coronary Artery Disease (5mo); Aortic [...] 2021. He [address] Dr. Uzair Romo at [facility] cardi[facility]oracicsurgery who told him [...] When he had his repeat appointment at [facility] they rechecked his aneurysm and it was [...] be in the 50s. He went to [place] ER because his pulse was consistently over 100 and had a workup done in the ER. He was told there might be a thyroid problem. Recommendations and Plan: Will get the results of the lab work from [place]. 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 Bradycardia Referring Provider: No ref. provider [...] COMPLETE (Holter) (01/11/2024 10:37 AM CDT) [facility]ative [facility] - 01/11/2024 10:37 AM CDT EVENT MONITOR REPORT Patient Name: ??Clem Capellan : ??1950 Tax Associate Date: 01/02/2024 Performed At: [facility], [place] Interpreting Shipwright Supervisor: ?? Dr. Mues PCP: ??COREY HERNÁNDEZ MD INDICATION: Arrhythmia DURATION OF MONITORIN days NUMBER OF TRANSMISSIONS: No patient transmission INTERPRETATION: Sinus rhythm, rates 45-1 12 with average rate 63 Periods of mild sinus bradycardia No pauses Low frequency PVCs Isolated 4.7-second run of accelerated idioventricular rhythm rate 100 3 short runs of nonsustained atrial tachycardia-11.7-second duration rate 120, 4.6-second duration rate 110, 3.4-second duration rate 110 RI 0.18, QRS 0.08, QTc 0.41 No ??symptoms noted CONCLUSION: Sinus rhythm, rates 45-112 with average rate 63 Periods of mild sinus bradycardia No pauses Low frequency PVCs Isolated 4.7-second run of accelerated idioventricular rhythm rate 100 3 short runs of nonsustained atrial tachycardia-11.7-second duration rate 120, 4.6-second duration rate 110, 3.4-second duration rate 110 RI 0.18, QRS 0.08, QTc 0.41 No ??symptoms noted us Diego Muse MD CV VASCULAR ORDERABLES Final Result [facility] documented in this encounter Visit Diagnoses Diagnosis Primary hypertension- Primary Unspecified essential hypertension Coronary artery disease due to calcified coronary lesion Aneurysm of ascending aorta without rupture (CMS/HCC) 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
--- OUTSIDE RECORDS SUMMARY | 2024-09-30 12:33 | XMS_ITS | Encounter Summary ---
Author Organization [facility] Address [address] [place] [address]. [place] [address] [place] [address] Care Team Providers Care Head Doffer Name Role Phone Corey Angel MD Primary Care Provider [phone] Reason for Visit * Reason Onset Date Comments Results 02/23/2024 Encounter Details Date Type Department Care Team (Late st Contact Info) Description 02/23/2024 Telephone [facility] [address] [place] [address] Diego Muse MD 3 [facility] [address] [place] [address] Results Social History Tobacco Use [...] on filedocumented in this encounter Care Teams Head Doffer Relationship Specialty Start Date End Date Corey Angel MD [address] [place] [address] PCP - General INTERNAL MEDICINE 02/25/21 documented as of this encounter
--- OUTSIDE RECORDS SUMMARY | 2024-09-30 12:33 | XMS_ITS | Encounter Summary ---
Author Organization [facility] Address [address] [place] [address]. [place], [place] [address] [place] [address] Care Team Providers Care Dry House Attendant Name Role Phone Corey Angel MD Primary Care Provider [phone] Encounter Details Date Type Department Care Team (Latest Contact Info) Description 01/18/2024 AI Patentst Message [facility] [address] Diego Muse MD [address] [place] [address] [place] [address] [place] [address] Heart Monitor Status Social History Tobacco [...] on filedocumented in this encounter Care Teams Dry House Attendant Relationship Specialty Start Date End Date Corey Angel MD [address] [place] [address] PCP - General INTERNAL MEDICINE 02/25/21 documented as of this encounter
--- OUTSIDE RECORDS SUMMARY | 2024-09-30 12:34 | XMS_ITS | Encounter Summary ---
Author Organization [facility] Address [facility] access hospital[facility]. [place], [place] [address] [place] [address] Care Team Providers Care Coke Wheeler Name Role Phone Corey Hernández MD Primary Care Provider [phone] Reason for Referral * Imaging (Routine) - Closed Specialty Diagnoses / Procedures Referred By Contac t Referred To Contact RADIOLOGY Diagnoses Abnormal finding of blood chemistry, unspecified Procedures CT HEART DIAG CALCIUM SCORE Corey Hernández MD [address] [place] [address] Phone: tel: fax: [place] [address] Phone: tel: Referral ID Status Reason Start Date Expiration Date Visits Re quested Visits Authorized [id number] Closed 02/24/2021 03/26/2022 1 1 Reason for Visit * Imaging (Routine) - Closed Specialty Diagnoses / Procedures Referred By Contac t Referred To Contact RADIOLOGY Diagnoses Abnormal finding of blood chemistry, unspecified Procedures CT HEART DIAG CALCIUM SCORE Corey Hernández MD [address] [place] [address] Phone: tel: fax: [place] [address] Phone: tel: Referral ID Status Reason Start Date Expiration Date Visits Re quested Visits Authorized [id number] Closed 02/24/2021 03/26/2022 1 1 Encounter Details Date Type Department Care Team (Latest Contact Info) Description 04/20/2021 3:00 PM CDT - 04/20/2021 11:59 PM CDT Hospital Encounter [facility] [address] [place] [address] Corey Hernández MD [address] [place] [address] Discharge Disposition: Home or Self [...] radiation exposure. Calcium score was calculated using Tag'By 64, BlueKite software. No intravenous contrast material was administered. [...] the radiation exposure. Calcium score was calculatedusing Tag'By 64, Blink for iPhone and Android system software. No intravenouscontrast material was administered. Procedure Complications/Allergic reactions: None. Coronary calcium CT quality: Good, limited by nothing FINDINGS: AGATSTON SCORE: Left main: 0 Left anterior descendin Left circumflex: 105 Right coronary artery: 76.0 Total score: 559 The total calcium score is 559. This places the patient into the [id number] and 75% in comparison to a group [...] unspecified documented in this encounter Care Teams Coke Wheeler Relationship Specialty Start Date End Date Corey Hernández MD [address] [place] [address] PCP - General INTERNAL MEDICINE 02/25/21 documented as of this encounter
--- OUTSIDE RECORDS SUMMARY | 2024-09-30 12:34 | XMS_ITS | Encounter Summary ---
Author Organization [facility] Address [address] [place] [address]. [place] [address] [place] [address] Care Team Providers Care Hvac Service Manager Name Role Phone Corey Angel MD Primary Care Provider [phone] Encounter Details Date Type Department Care Team (Late st Contact Info) Description 07/20/2022 Orders Only [facility] [address] [place] [address] Diego Muse MD 3 [facility] [address] [place] [address] Social History Tobacco Use Types [...] Coronary atherosclerosis of unspecified type of vessel, jamul or graft Ascending aortic aneurysm (CMS/HCC) Thoracic aneurysm without mention of rupture documented in this encounter Care Teams Hvac Service Manager Relationship Specialty Start Date End Date Corey Angel MD [address] [place] [address] PCP - General INTERNAL MEDICINE 02/25/21 documented as of this encounter
--- OUTSIDE RECORDS SUMMARY | 2024-09-30 12:34 | XMS_ITS | Encounter Summary ---
Author Organization [facility] Address [address] [place] [address]. [place], [place] [address] [place] [address] Care Team Providers Care Machines Technician Name Role Phone Corey Angel MD Primary Care Provider [phone] Encounter Details Date Type Department Care Team [...] on filedocumented in this encounter Care Teams Machines Technician Relationship Specialty Start Date End Date Corey Angel MD [address] [place] [address] PCP - General INTERNAL MEDICINE 02/25/21 documented as of this encounter
--- OUTSIDE RECORDS SUMMARY | 2024-09-30 12:34 | XMS_ITS | Encounter Summary ---
Author Organization [facility] Address [facility] [place], [place] [address] [place] [address] Care Team Providers Care Insert Cutter Name Role Phone Corey Angel MD Primary Care Provider [phone] Reason for Referral * Imaging (Routine) - Closed Specialty Diagnoses / Procedures Referred By Contac t Referred To Contact RADIOLOGY Diagnoses Aneurysm of ascending aorta without rupture (CMS/HCC) Procedures CTA CHEST CTA CHEST WWO CON Diego Cordero MD 3 [facility] [address] [place] [address] Phone: tel: fax: Referral ID Status Reason Start Date Expiration Date Visits Re quested Visits Authorized [id number] Closed 04/29/2023 09/01/2023 1 1 Encounter Details Date Type Department Care Team (Late st Contact Info) Description 04/29/2023 Orders Only [facility] [address] [place] [address] Diego Cordero MD 3 [facility] [address] [place] [address] Social History Tobacco Use Types Packs/Day [...] (CMS/HCC) documented in this encounter Care Teams Insert Cutter Relationship Specialty Start Date End Date Corey Angel MD [address] [place] [address] PCP - General INTERNAL MEDICINE 02/25/21 documented as of this encounter
--- OUTSIDE RECORDS SUMMARY | 2024-09-30 12:34 | XMS_ITS | Encounter Summary ---
Author Organization [facility] Address [address] [place] [address]. [place], [place] [address] [place] [address] Care Team Providers Care Baker Pie Name Role Phone Corey Angel MD Primary Care Provider [phone] Encounter Details Date Type Department Care Team [...] on filedocumented in this encounter Care Teams Baker Pie Relationship Specialty Start Date End Date Corey Angel MD [address] [place] [address] PCP - General INTERNAL MEDICINE 02/25/21 documented as of this encounter
--- OUTSIDE RECORDS SUMMARY | 2024-09-30 12:34 | XMS_ITS | Encounter Summary ---
Author Organization [facility] Address [address] [place] [address]. [place], [place] [address] [place] [address] Care Team Providers Care Construction Accountant Name Role Phone Corey Angel MD Primary Care Provider [phone] Reason for Visit * Reason Onset Date Comments Question 12/09/2022 Encounter Details Date Type Department Care Team (Late st Contact Info) Description 12/09/2022 [place] [address] Atiya Holt RN Question Social History Tobacco [...] on filedocumented in this encounter Care Teams Construction Accountant Relationship Specialty Start Date End Date Corey Angel MD [address] [place] [address] PCP - General INTERNAL MEDICINE 02/25/21 documented as of this encounter
--- OUTSIDE RECORDS SUMMARY | 2024-09-30 12:34 | XMS_ITS | Encounter Summary ---
Author Organization [facility] Address [address] [place] [address]. [place], [place] [address] [place] [address] Care Team Providers Care Top Executive Name Role Phone Corey Angel MD Primary Care Provider [phone] Reason for Referral * Procedure (Routine) - Closed Specialty Diagnoses / Procedures Referred By Contac t Referred To Contact Diagnoses Chest pain Benign essential HTN CAD (coronary artery disease) Coronary artery disease due to calcified coronary lesion Hypercholesterolemia Primary hypertension Procedures Stress test only, exercise [facility] [place] [address] Phone: tel: Referral ID Status Reason Start Date Expiration Date Visits Re quested Visits Authorized [id number] Closed 12/13/2022 12/14/2023 1 1 * Imaging (Routine) - Closed Specialty Diagnoses / Procedures Referred By Contac t Referred To Contact RADIOLOGY Diagnoses Chest pain Benign essential HTN CAD (coronary artery disease) Procedures NM EXER NUC STRESS TEST 1DAY Diego Muse MD 3 [facility] [place] [address] [place] [address] Phone: tel: fax: Referral ID Status Reason Start Date Expiration Date Visits Re quested Visits Authorized [id number] Closed 12/13/2022 03/12/2023 2 2 Reason for Visit * Imaging (Routine) - Closed Specialty Diagnoses / Procedures Referred By Contjairo t Referred To Contact RADIOLOGY Diagnoses Chest pain Benign essential HTN CAD (coronary artery disease) Procedures NM EXER NUC STRESS TEST 1DAY Diego Muse MD 3 [facility] [address] [place] [address] Phone: tel: fax: Referral ID Status Reason Start Date Expiration Date Visits Re quested Visits Authorized [id number] Closed 12/13/2022 03/12/2023 2 2 Encounter Details Date Type Department Care Team (Latest Contact Info) Description 12/13/2022 12:22 PM CDT - 12/13/2022 11:59 PM CDT Hospital Encounter [facility] [place] [address] Diego Muse MD [address] [address] Discharge Disposition: Home or Self [...] Coronary atherosclerosis of unspecified type of vessel, chinik or graft Hypercholesterolemia Pure hypercholesterolemia Primary hypertension [...] millicuries documented in this encounter Care Teams Top Executive Relationship Specialty Start Date End Date Corey Angel MD [address] [place] [address] PCP - General INTERNAL MEDICINE 02/25/21 documented as of this encounter
--- OUTSIDE RECORDS SUMMARY | 2024-09-30 12:34 | XMS_ITS | Encounter Summary ---
Author Organization [facility] Address [address] [place] [address]. [place], [place] [address] [place] [address] Care Team Providers Care Skills Auditor Name Role Phone Corey Angel MD Primary Care Provider [phone] Reason for Visit * Reason Onset Date Comments Question 10/27/2022 Encounter Details Date Type Department Care Team (Late st Contact Info) Description 10/27/2022 [place] [address] Atiya Holt RN Question Social History Tobacco [...] started Metoprolol 12.5mg daily. Med list updated. EN TESTER * Therese Carl, MARTIN - 10/27/2022 10:50 AM CST I would not expect him to feel his aneurysm. It looks like Dr. Muse had recommended a stress test, I would schedule if it has not been done. EN TESTER * Atiya Holt RN - 10/27/2022 10:39 [...] scheduling. HR 70's bp this am 131/91 EN TESTER documented in this encounter Plan of Treatment Not on file documented as of this encounter Visit Diagnoses Not on filedocumented in this encounter Care Teams Skills Auditor Relationship Specialty Start Date End Date Corey Angel MD [address] [place] [address] PCP - General INTERNAL MEDICINE 02/25/21 documented as of this encounter
--- OUTSIDE RECORDS SUMMARY | 2024-09-30 12:34 | XMS_ITS | Encounter Summary ---
Author Organization [facility] Address [address] [place] [address]. [place], [place] [address] [place] [address] Care Team Providers Care Single Needle Tufting Machine Operator Name Role Phone Corey Angel MD Primary Care Provider [phone] Encounter Details Date Type Department Care Team [...] Coronavirus/COVID-19? No / Unsure 08/24/2022 8:46 AM VP PRODUCTION documented as of this encounter Plan of Treatment Not on file documented as of this encounter Visit Diagnoses Not on filedocumented in this encounter Care Teams Single Needle Tufting Machine Operator Relationship Specialty Start Date End Date Corey Angel MD [address] [place] [address] PCP - General INTERNAL MEDICINE 02/25/21 documented as of this encounter
--- OUTSIDE RECORDS SUMMARY | 2024-09-30 12:34 | XMS_ITS | Encounter Summary ---
Author Organization [facility] Address [address] [place] [address]. [place] [address] [place] [address] Care Team Providers Care Batting Machine Operator Name Role Phone Corey Hernández MD Primary Care Provider [phone] Reason for Visit * Reason Comments Heart Problem Encounter Details Date Type Department Care Team (Late st Contact Info) Description 07/16/2022 1:30 PM CDT Office Visit [facility] [address] Diego Muse MD [address] [place] [address] [place] [address] Heart Problem Social History Tobacco Use [...] 2021. [address] Uzair Romo at [facility] cardiothoracic surgery who told him that he [...] hypertension documented in this encounter Care Teams Batting Machine Operator Relationship Specialty Start Date End Date Corey Hernández MD [address] [place] [address] PCP - General INTERNAL MEDICINE 02/25/21 documented as of this encounter
--- OUTSIDE RECORDS SUMMARY | 2024-09-30 12:34 | XMS_ITS | Encounter Summary ---
Author Organization [facility] Address [address] [place] [address]. [place], [place] [address] [place] [address] Care Team Providers Care Experimental Mechanic Name Role Phone Corey Angel MD Primary Care Provider [phone] Encounter Details Date Type Department Care Team (Late st Contact Info) Description 12/14/2022 EoeMobile Message Enc [facility], [address] [address] Mychart, [facility] Provider Stress test Social History Tobacco Use [...] on filedocumented in this encounter Care Teams Experimental Mechanic Relationship Specialty Start Date End Date Corey Angel MD [address] [place] [address] PCP - General INTERNAL MEDICINE 02/25/21 documented as of this encounter
--- OUTSIDE RECORDS SUMMARY | 2024-09-30 12:34 | XMS_ITS | Encounter Summary ---
Author Organization [facility] Address [address] [place] [address]. [place], [place] [address] [place] [address] Care Team Providers Care Practice Professional Name Role Phone Corey Angel MD Primary Care Provider [phone] Reason for Referral * Imaging (Routine) - Closed Specialty Diagnoses / Procedures Referred By Contac t Referred To Contact RADIOLOGY Diagnoses Chest pain Benign essential HTN CAD (coronary artery disease) Procedures NM EXER NUC STRESS TEST 1DAY Diego Muse MD 3 [facility] [address] [place] [address] Phone: tel: fax: Referral ID Status Reason Start Date Expiration Date Visits Re quested Visits Authorized [id number] Closed 12/13/2022 03/12/2023 2 2 BER Encounter Details Date Type Department Care Team (Late st Contact Info) Description 10/29/2022 Orders Only [facility] [address] [facility] [address], [address] [place] [address] Diego Muse MD 3 [facility] [address] [place] [address] Social History Tobacco Use Types Packs/Day [...] Coronavirus/COVID-19? No / Unsure 10/29/2022 9:54 AM SLABBER documented as of this encounter Plan of [...] Coronary atherosclerosis of unspecified type of vessel, [place] or graft documented in this encounter Care Teams Practice Professional Relationship Specialty Start Date End Date Corey Angel MD [address] [place] [address] PCP - General INTERNAL MEDICINE 02/25/21 documented as of this encounter
--- OUTSIDE RECORDS SUMMARY | 2024-09-30 12:34 | XMS_ITS | Encounter Summary ---
Author Organization [facility] Address [facility] [place] [address] [place] [address] Care Team Providers Care School Psychologist Name Role Phone Unavailable Primary Care Provider Unavailabl e Encounter Details Date Type Department Care Team (Late st Contact Info) Description 08/12/2005 Abstract [facility] [address] [place] [address] Peter Morales MD [address] [place] [address] Social History Tobacco Use Types Packs/Day Years [...]
--- OUTSIDE RECORDS SUMMARY | 2024-09-30 12:34 | XMS_ITS | Encounter Summary ---
Author Organization [facility] Address [facility]6 [facility] [place], [place] [address] [place] [address] Care Team Providers Care Fiberglass Product Tester Name Role Phone Corey Angel MD Primary Care Provider [phone] Reason for Referral * Imaging (Routine) - Closed Specialty Diagnoses / Procedures Referred By Niraliac t Referred To Contact RADIOLOGY Diagnoses Aneurysm of ascending aorta without rupture (CMS/HCC) Procedures CTA CHEST CTA CHEST WWO CON Diego Cordero MD 3 [facility] [address] [place] [address] Phone: tel: fax: Referral ID Status Reason Start Date Expiration Date Visits Re quested Visits Authorized [id number] Closed 04/29/2023 09/01/2023 1 1 Reason for Visit * Imaging (Routine) - Closed Specialty Diagnoses / Procedures Referred By Hoang zavala Referred To Contact RADIOLOGY Diagnoses Aneurysm of ascending aorta without rupture (CMS/HCC) Procedures CTA CHEST CTA CHEST WWO CON Diego Cordero MD 3 [facility] [address] [place] [address] Phone: tel: fax: Referral ID Status Reason Start Date Expiration Date Visits Re quested Visits Authorized [id number] Closed 04/29/2023 09/01/2023 1 1 Encounter Details Date Type Department Care Team (Latest Contact Info) Description 07/07/2023 11:08 AM CDT - 07/07/2023 11:59 PM CDT Hospital Encounter [facility] CT [address] [place] [address] Diego Cordero MD 3 [facility] [address] [place] [address] Discharge Disposition: Home or Self [...] Hudson MD, 07/09/2023 3:11 AM us Diego Coredro MD CT Final Result documented in this encounter Visit Diagnoses Diagnosis Aneurysm of ascending aorta without rupture (CMS/HCC) documented in this encounter Administered Medications Inactive Administered Medications - up to 3 most recent administrations Medication Order MAR Action Action Date Dose Rate Site iopamidol (ISOVUE-370) 76 % injection 100 mL 100 mL, Intravenous, IMG once as needed, Contrast, 1 dose, Starting on Terri 07/07/23 at 1304, Until Terri 07/07/23 at 1304 Given 07/07/2023 1:04 PM CDT 100 mLs R ight Arm documented in this encounter Care Teams Fiberglass Product Tester Relationship Specialty Start Date End Date Corey Angel MD [address] [place] [address] PCP - General INTERNAL MEDICINE 02/25/21 documented as of this encounter
--- OUTSIDE RECORDS SUMMARY | 2024-09-30 12:34 | XMS_ITS | Encounter Summary ---
Author Organization [facility] Address [address] [place] [address]. [place], [place] [address] [place] [address] Care Team Providers Care Labor Crew Supervisor Name Role Phone Corey Angel MD Primary Care Provider [phone] Encounter Details Date Type Department Care Team [...] Coronavirus/COVID-19? No / Unsure 10/29/2022 9:54 AM REHAB TECHNICIAN documented as of this encounter Plan of Treatment Not on file documented as of this encounter Visit Diagnoses Not on filedocumented in this encounter Care Teams Labor Crew Supervisor Relationship Specialty Start Date End Date Corey Angel MD [address] [place] [address] PCP - General INTERNAL MEDICINE 02/25/21 documented as of this encounter
--- OUTSIDE RECORDS SUMMARY | 2024-09-30 12:34 | XMS_ITS | Encounter Summary ---
Author Organization [facility] Address [address] [place] [address]. [place], [place] [address] [place] [address] Care Team Providers Care Welder 2Nd Shift Name Role Phone Corey Angel MD Primary Care Provider [phone] Reason for Visit * Imaging (Routine) - Closed Specialty Diagnoses / Procedures Referred By Contac t Referred To Contact RADIOLOGY Diagnoses CAD (coronary artery disease) Ascending aortic aneurysm (CMS/HCC) Procedures USE ECHOCARDIOGRAM W CON USE ECHOCARDIOGRAM Diego Muse MD 3 [facility] [address] [place] [address] Phone: tel: fax: Referral ID Status Reason Start Date Expiration Date Visits Re quested Visits Authorized [id number] Closed 07/20/2022 08/20/2023 1 1 Encounter Details Date Type Department Care Team (Latest Contact Info) Description 08/24/2022 8:47 AM DIRECT SALES REPRESENTATIVE - 08/24/2022 11:59 PM [facility] Hospital Encounter [facility] [address] [place] [address] Diego Muse MD 3 [facility] [address] [place] [address] Discharge Disposition: Home or Self Care [...] Coronavirus/COVID-19? No / Unsure 08/24/2022 8:46 AM DIRECT SALES REPRESENTATIVE documented as of this encounter Medications at [...] ECHOCARDIOGRAM W CON Routine 08/24/2022 10:07 AM DIRECT SALES REPRESENTATIVE CAD (coronary artery disease) Ascending aortic aneurysm documented in this encounter Results * USE ECHOCARDIOGRAM W CON (08/24/2022 10:07 AM DIRECT SALES REPRESENTATIVE) Anatomical Region Laterality Modality NA Echocardiogram 08/24/2022 9:11 AM DIRECT SALES REPRESENTATIVE Narrative 08/24/2022 7:15 PM DIRECT SALES REPRESENTATIVE ?Echocardiography Report Pat.Name: ??NALLELY MEJIA ? Pat.ID: ?[id number] ? St.Date: ?? 08/24/2022 ? Refer.MD: ??[id number] GIL DIEGO [place] Exam Time: 9:11:00 AM [...] ?? Cardiovascular ?? 2.02 cm ? LVOT/AoV ([employer]) ( ??0.93 ? AV Antegrade Flow Peak [...] 08/24/2022 Echocardiography Report Pat.Name: NALLELY MEJIA Pat.ID: [id number] St.Date: 08/24/2022 : [id number] GIL [place] Exam Time: 9:11:00 AM Study Type:ECHO WITH CARDIAC DOPPLER COMP Height: 71 in Weight: 283 lb BSA: 2.44 m2 Age: 2 1950,71Y Sex: M BP: 154/104 HR: 71 bpm Sonogrphr: Melly Barakat [facility] Pat. Stat.:Outpatient Reason for Study:Coronary artery [...] cm/s Aortic Valve Cardiovascular 2.02 cm LVOT/AoV ([employer]) ( 0.93 AV Antegrade Flow Peak Velocity [...] Coronary atherosclerosis of unspecified type of vessel, [place] or graft Ascending aortic aneurysm (CMS/HCC) Thoracic [...] mL saline flush. Given 08/24/2022 10:08 AM DIRECT SALES REPRESENTATIVE 3 mLs documented in this encounter Care Teams Welder 2Nd Shift Relationship Specialty Start Date End Date Corey Angel MD [address] [place] [address] PCP - General INTERNAL MEDICINE 02/25/21 documented as of this encounter
--- OUTSIDE RECORDS SUMMARY | 2024-09-30 12:34 | XMS_ITS | Encounter Summary ---
Author Organization [facility] Address [address] [place] [address]. [place] [address] [place] [address] Care Team Providers Care Processing Inspector Name Role Phone Corey Angel MD Primary Care Provider [phone] Reason for Visit * Reason Onset Date Comments Results 04/21/2021 Encounter Details Date Type Department Care Team (Late st Contact Info) Description 04/21/[address] [place], [place] [address] Hanh Diane, TYLER [address] [address] Results Social History Tobacco Use Types Packs/Day [...] daily ASA 81mg and referral to a healthcare interpreter for further evaluation. He also needs tofollow [...] on filedocumented in this encounter Care Teams Processing Inspector Relationship Specialty Start Date End Date Corey Angel MD [address] [place] [address] PCP - General INTERNAL MEDICINE 02/25/21 documented as of this encounter
--- OUTSIDE RECORDS SUMMARY | 2024-09-30 12:34 | XMS_ITS | Encounter Summary ---
Author Organization [facility] Address [facility]6 [facility] [place] [address] [place] [address] Care Team Providers Care Bowl Topper Name Role Phone Corey Angel MD Primary Care Provider [phone] Reason for Visit * Reason Onset Date Comments Schedule Test 04/27/2023 Patient had appt scheduled for 04/29/23 @ [facility], but cancelled and is unable to make it. Before rescheduling, he thought he was due for another CT scan, but doesn't have an order; last CT done @ [facility]. Does he need CT scan before seeing Dr. Muse? Encounter Details Date Type Department Care Team (Late st Contact Info) Description 04/27/2023 Telephone [facility], [address] [place] [address] Diego Muse MD 3 [facility] [address] [place] [address] Schedule Test (Patient had appt scheduled for 04/29/23 @ [facility], but cancelled and is unable to make it. Before rescheduling, he thought he was due for another CT scan, but doesn't have an order; last CT done @ [facility]. Does he need CT scan before seeing [...] have an order; last CT done @ [facility]. Does he need CT scan before seeing Dr. Muse? documented in this encounter Plan of Treatment Not on file documented as of this encounter Visit Diagnoses Not on filedocumented in this encounter Care Teams Bowl Topper Relationship Specialty Start Date End Date Corey Angel MD [address] [place] [address] PCP - General INTERNAL MEDICINE 02/25/21 documented as of this encounter
--- OUTSIDE RECORDS SUMMARY | 2024-09-30 12:34 | XMS_ITS | Encounter Summary ---
Author Organization [facility] Address [address] [place] [address]. [place] [address] [place] [address] Care Team Providers Care Quality Assurance Consultant Name Role Phone Corey Hernández MD Primary Care Provider [phone] Reason for Visit * Reason Comments Follow Up Coronary Artery Disease Heart Problem Aneurysm of ascendin g aorta without rupture Encounter Details Date Type Department Care Team (Latest Contact Info) Description 10/29/2022 10:00 AM CUTTER HELPER Office Visit [facility] [place] [address] [address] Diego Cordero MD [address] [place] [address] [place] [address] Follow Up; Coronary Artery Disease; Heart [...] Coronavirus/COVID-19? No / Unsure 10/29/2022 9:54 AM CUTTER HELPER documented as of this encounter Last Filed Vital Signs Vital Sign Reading Time Taken Comments Blood Pressure 134/70 10/29/2022 10:09 AM CUTTER HELPER Pulse 91 10/29/2022 10:09 AM CUTTER HELPER Temperature - - Respiratory Rate - - Oxygen Saturation 98% 10/29/2022 10: 09 AM CUTTER HELPER Inhaled Oxygen Concentration - - Weight 119.8 kg (264 lb 1.6 oz) 023 10:09 AM CUTTER HELPER Height 180.3 cm (5' 11 ) 10/29/2022 10: 09 AM CUTTER HELPER Body Mass Index 36.83 10/29/2022 10:09 AM CUTTER HELPER documented in this encounter Progress Notes [...] 2021. He saw Dr. Uzair Romo at [facility] cardiothoracicsurgery who told him that he [...] When he had his repeat appointment at [facility] they rechecked his aneurysm and [...] aneurysm. He was diagnosed with hypertension at [facility] and started on metoprolol. I agree with [...] ref. provider found PCP: COREY HERNÁNDEZ MD ER HELPER documented in this encounter Plan of Treatment Not on file documented as of this encounter Procedures Procedure Name Priority Date/Time Associated Diagnosis Comments ELECTROCARDIOGRAM (NON MIDMARK ACQUIRED) Routine 10/29/2022 10:32 AM CUTTER HELPER Chest pain, unspecified type documented in this encounter Results * ELECTROCARDIOGRAM (10/29/2022 10:32 AM CUTTER HELPER) 10/29/2022 10:3 2 AM CUTTER HELPER [facility] CARDIOVASCULAR - 11/01/2022 4:56 PM CUTTER HELPER ? [facility] ?[address] [place] [address] ? Test Date: ?2022-10-29 Pat Name: ? NALLELY TIMI ? Department: ?? 177 ? Room: ? Gender: ? Male ? Street Light Repairer: ?? : ?1950 ? Requested By: DIEGO CORDERO Order Number: [id number] ?Reading MD: ?? Diego Cordero ? Measurements Intervals ?[place] ? Rate: ? 78 ? P: ?35 ME: ? 174 ?QRS: ?-1 QRSD: ? 97 ? T: ?26 QT: ? 371 ? QTc: ?423 ? Interpretive Statements SINUS RHYTHM MODERATE VOLTAGE CRITERIA FOR LVH, CONSIDER NORMAL VARIANT ER HELPER Procedure Note Diego Cordero MD - 11/01/[address], [place] [address] Test Date: 2022-10-29 Pat Name: NALLELY MEJIA Department: 177 Room: Gender: Male Street Light Repairer: : 1950 Requested By: DIEGO CORDERO Order Number: [id number] Reading MD: Diego Cordero Measurements Intervals [place] Rate: 78 P: 35 ME: 174 QRS: -1 QRSD: 97 T: 26 QT: 371 QTc: 423 Interpretive Statements SINUS RHYTHM MODERATE VOLTAGE CRITERIA FOR LVH, CONSIDER NORMAL VARIANT ER HELPER us Diego Cordero MD PROCEDURES-ORDERABLE NO CHARG E Final Result [facility] documented in this encounter Visit Diagnoses Diagnosis Chest pain, unspecified type- Primary Coronary artery disease due to calcified coronary lesion Hypercholesterolemia Pure hypercholesterolemia Aneurysm of ascending aorta without rupture (CMS/HCC) Primary hypertension Unspecified essential hypertension documented in this encounter Care Teams Quality Assurance Consultant Relationship Specialty Start Date End Date Corey Hernández MD [address] [place] [address] PCP - General INTERNAL MEDICINE 02/25/21 documented as of this encounter
--- OUTSIDE RECORDS SUMMARY | 2024-09-30 12:34 | XMS_ITS | Encounter Summary ---
Author Organization [facility] Address [address] [place] [address]. [place] [address] [place] [address] Care Team Providers Care Scheduling Clerk Name Role Phone Corey Angel MD Primary Care Provider [phone] Reason for Visit * Reason Onset Date Comments Results 07/11/2023 Encounter Details Date Type Department Care Team (Late st Contact Info) Description 07/11/[address] [address] [place] [address] Results Social History Tobacco Use Types Packs/Day [...] on filedocumented in this encounter Care Teams Scheduling Clerk Relationship Specialty Start Date End Date Corey Angel MD [address] [place] [address] PCP - General INTERNAL MEDICINE 02/25/21 documented as of this encounter
--- OUTSIDE RECORDS SUMMARY | 2024-09-30 12:34 | XMS_ITS | Encounter Summary ---
Author Organization [facility] Address [address] [place] [address]. [place], [place] [address] [place] [address] Care Team Providers Care Meatman Name Role Phone Corey Angel MD Primary Care Provider [phone] Encounter Details Date Type Department Care Team [...] on filedocumented in this encounter Care Teams Meatman Relationship Specialty Start Date End Date Corye Angel MD [address] [place] [address] PCP - General INTERNAL MEDICINE 02/25/21 documented as of this encounter
--- OUTSIDE RECORDS SUMMARY | 2024-09-30 12:34 | XMS_ITS | Encounter Summary ---
Author Organization [facility] Address [address] [place] [address]. [place], [place] [address] [place] [address] Care Team Providers Care Commercial Roofer Name Role Phone Corey Angel MD Primary Care Provider [phone] Encounter Details Date Type Department Care Team [...] on filedocumented in this encounter Care Teams Commercial Roofer Relationship Specialty Start Date End Date Corey Angel MD [address] [place] [address] PCP - General INTERNAL MEDICINE 02/25/21 documented as of this encounter
--- OUTSIDE RECORDS SUMMARY | 2024-09-30 12:34 | XMS_ITS | Encounter Summary ---
Author Organization [facility] Address [address] [place] [address]. [place] [address] [place] [address] Care Team Providers Care Cloud Automation Tester Name Role Phone Corey Hernández MD Primary Care Provider [phone] Reason for Visit * Reason Comments Follow Up 6 months Chest Pain Heart Problem CAD Encounter Details Date Type Department Care Team (Latest Contact Info) Description 04/29/2023 11:30 AM CDT Office Visit [facility] [address] Diego Muse MD 3 [facility] [address] [place] [address] Follow Up (6 months); Chest Pain; [...] 2021. He saw [facility]. Uzair Rom[facility] at [facility] who told him that [facility] [...] When he had his repeat appointment at [facility] they rechecked his aneurysm and [...] hypercholesterolemia documented in this encounter Care Teams Cloud Automation Tester Relationship Specialty Start Date End Date Corey Hernández MD [address] [place] [address] PCP - General INTERNAL MEDICINE 02/25/21 documented as of this encounter
--- OUTSIDE RECORDS SUMMARY | 2024-09-30 12:34 | XMS_ITS | Encounter Summary ---
Author Organization [facility] Address [address] [place] [address]. [place], [place] [address] [place] [address] Care Team Providers Care Telemarketing Representative Name Role Phone Corey Angel MD Primary Care Provider [phone] Encounter Details Date Type Department Care Team (Late st Contact Info) Description 06/20/2023 Orders Only [facility] [address] [facility] [address] [place] [address] Diego Muse MD [address] [facility] [place] [address] [place] [address] Social History Tobacco Use Types [...] Primary documented in this encounter Care Teams Telemarketing Representative Relationship Specialty Start Date End Date Corey Angel MD [address] [place] [address] PCP - General INTERNAL MEDICINE 02/25/21 documented as of this encounter
--- OUTSIDE RECORDS SUMMARY | 2024-09-30 12:34 | XMS_ITS | Encounter Summary ---
Author Organization [facility] Address [address] [place] [address]. [place] [address] [place] [address] Care Team Providers Care Outside Salesperson Name Role Phone Corey Hernández MD Primary Care Provider [phone] Reason for Visit * Reason Comments Thoracic Aortic Aneurysm 1 month follow up Lipids Encounter Details Date Type Department Care Team (Late st Contact Info) Description 07/13/2023 10:30 AM CDT Office Visit [facility] [address] [facility] [address] [place] [address] Diego Muse MD 3 [facility] [address] [place] [address] Thoracic Aortic Aneurysm (1 month [...] [address]. [address] [facility] [facility] who told him that he was not [...] When he had his repeat appointment at [facility] they rechecked his aneurysm and [...] as 4.4 cm again there is no ticket dispenser changer the last 2 years. These fluctuations in [...] hypertension documented in this encounter Care Teams Outside Salesperson Relationship Specialty Start Date End Date Corey Hernández MD [address] [place] [address] PCP - General INTERNAL MEDICINE 02/25/21 documented as of this encounter
--- OUTSIDE RECORDS SUMMARY | 2024-09-30 12:34 | XMS_ITS | Encounter Summary ---
Author Organization [facility] Address [address] [place] [address]. [place], [place] [address] [place] [address] Care Team Providers Care Salary Manager Name Role Phone Corey Angel MD Primary Care Provider [phone] Encounter Details Date Type Department Care Team [...] on filedocumented in this encounter Care Teams Salary Manager Relationship Specialty Start Date End Date Corey Angel MD [address] [place] [address] PCP - General INTERNAL MEDICINE 02/25/21 documented as of this encounter
--- OUTSIDE RECORDS SUMMARY | 2024-09-30 12:37 | XMS_ITS | Clinical Summary ---
Author Organization [facility] Address [address] [address] Phone Care Team Providers Care Formula Checker Name Role Phone Corey Angel MD Primary Care Provider [phone] Uzair Dye DO Unavailable [phone] Allergies No known active allergies Medications [...] Comments Blood Pressure 120/90 10/12/2016 12:23 PM HOTEL OPERATIONS MANAGER Pulse 79 10/12/2016 12:23 PM HOTEL OPERATIONS MANAGER Temperature 36.1 ??C (96.9 ??F) 10/12/2016 12:[address] Respiratory Rate 14 10/12/2016 12:23 PM HOTEL OPERATIONS MANAGER Oxygen Saturation 94% 10/12/2016 12:23 PM HOTEL OPERATIONS MANAGER Inhaled Oxygen Concentration - - Weight 117.5 kg (259 lb) 10/12/2016 12:23 PM HOTEL OPERATIONS MANAGER Height 177.8 cm (5' 10 ) 10/12/2016 12:23 PM HOTEL OPERATIONS MANAGER Body Mass Index 37.16 10/12/2016 12:23 PM HOTEL OPERATIONS MANAGER Plan of Treatment Health Maintenance Due Date [...] Recently Relevant to Health Maintenance Insurance MEDICARE [employer] Care Teams Formula Checker Relationship Specialty Start Date End Date Corey Angel MD [address] [place] [address] PCP - General Internal Medicine 03/31/16 Uzair Dye DO [address] [place] [address] Gastroenterology 03/31/16
--- OUTSIDE RECORDS SUMMARY | 2024-09-30 12:38 | XMS_ITS | Encounter Summary ---
Author Organization [facility] Healthcare Address [address] [place] [address] Care Team Providers Care Base Brander Name Role Phone Corey Angel MD Primary Care Provider [phone] Clem Thomson MD Unavailable Harman Morales MD Unavailable [phone] James Robert DO Unavailable [phone] Encounter Details Date Type Department Care Team (Late st Contact Info) Description 09/20/2024 1:00 PM DATA MANAGEMENT SPECIALIST Treatment [facility] Medical Office Building 2 Radiation Oncology [address] [place] [id number] Social History Tobacco Use Types Packs/Day [...] file Legal Sex Male 2:49 AM DATA MANAGEMENT SPECIALIST Gender Identity Male 05/22/2018 10:57 AM CDT Sexual Orientation Straight 11/03/2020 7: 01 PM DATA MANAGEMENT SPECIALIST Occupation Industry Job Start Date Job End Date working Not on file Not on file Not on file documented as of this encounter Plan of Treatment Not on file documented as of this encounter Visit Diagnoses Not on filedocumented in this encounter Care Teams Base Brander Relationship Specialty Start Date End Date Corey Angel MD [address] [facility] [address] [place] [address] PCP - General Internal Medicine 06/18/21 Clem Thomson MD 49[address] [facility] [address] [facility] [place] [address] Referring Physician Urology 06/14/24 Hamran Morales MD [address] [place] [address] [address] [place] [address] Radiation Oncologist Radiation Oncology 06/22/24 James Robert DO [address] [place] [address] MEDICAL ONCOLOGY, [facility] [address] [place] [address] Medical Oncologist/Grove Worker Hematology and Oncology 07/12/24 documented as of this encounter
--- OUTSIDE RECORDS SUMMARY | 2024-09-30 12:38 | XMS_ITS | Encounter Summary ---
Author Organization [facility] Healthcare Address [address] [place] [address] Care Team Providers Care Button Grader Name Role Phone Corey Angel MD Primary Care Provider Clem Thomson MD Unavailable Harman Morales MD Unavailable [phone] James Robert DO Unavailable [phone] Reason for Visit * Reason Comments OTV Encounter Details Date Type Department Care Team (Late st Contact Info) Description 09/21/2024 OTV [facility] Medical Office Building 2 Radiation On[address] [place] [address] Harman Morales MD [address] [place] [address] Social History Tobacco Use Types Packs/Day [...] on file Legal Sex Male 2:49 AM STONE SAWYER Gender Identity Male 05/22/2018 10:57 AM CDT Sexual Orientation Straight 11/03/2020 7: 01 PM STONE SAWYER Occupation Industry Job Start Date Job End Date working Not on file Not on file Not on file documented as of this encounter Last Filed Vital Signs Vital Sign Reading Time Taken Comments Blood Pressure 141/98 09/21/2024 1:24 PM STONE SAWYER Pulse 63 09/21/2024 1:24 PM STONE SAWYER Temperature - - Respiratory Rate - - Oxygen Saturation 100% 09/21/2024 1:24 PM STONE SAWYER Inhaled Oxygen Concentration - - Weight 120.2 kg (265 lb) 09/21/2024 1:24 PM STONE SAWYER Height - - Body Mass Index 37.49 08/09/2024 3:04 PM STONE SAWYER documented in this encounter Progress Notes * [...] pain that requires changes in pain management. E SAWYER documented in this encounter Plan of Treatment Not on file documented as of this encounter Visit Diagnoses Not on filedocumented in this encounter Care Teams Button Grader Relationship Specialty Start Date End Date Corey Angel MD [address] [facility] [address] [place] [address] PCP - General Internal Medicine 06/18/21 Clem Thomson MD [address] [facility] [address] [place] [address] Referring Physician Urology 06/14/24 Harman Morales MD [facility]8 [facility] [address] [place] [address] Radiation Oncologist Radiation Oncology 06/22/24 James Robert DO [address] [facility] DIV IM MEDICAL ONCOLOGY, [address] [place] [address] Medical Oncologist/Fixed Wing Aircraft Flight Mechanic Hematology and Oncology 07/12/24 documented as of this encounter
--- OUTSIDE RECORDS SUMMARY | 2024-09-30 12:38 | XMS_ITS | Encounter Summary ---
Author Organization [facility] Healthcare Address [address] [place] [address] Care Team Providers Care Land Agent Name Role Phone Corey Angel MD Primary Care Provider [phone] Clem Thomson MD Unavailable Harman Morales MD Unavailable [phone] James Robert DO Unavailable [phone] Encounter Details Date Type Department Care Team (Late st Contact Info) Description 09/17/2024 1:00 PM CENTRAL CONTROL ROOM OPERATOR Treatment [facility] Medical Office Building 2 Radiation Oncology [address] [place] [address] Social History Tobacco Use Types Packs/Day [...] on file Legal Sex Male 2:49 AM CENTRAL CONTROL ROOM OPERATOR Gender Identity Male 05/22/2018 10:57 AM CDT Sexual Orientation Straight 11/03/2020 7: 01 PM CENTRAL CONTROL ROOM OPERATOR Occupation Industry Job Start Date Job End Date working Not on file Not on file Not on file documented as of this encounter Plan of Treatment Not on file documented as of this encounter Visit Diagnoses Not on filedocumented in this encounter Care Teams Land Agent Relationship Specialty Start Date End Date Corey Angel MD [address] [facility] [address] [place] [address] PCP - General Internal Medicine 06/18/21 Clem Thomson MD [address] [facility] [address] [facility] [place] [address] Referring Physician Urology 06/14/24 Harman Morales MD [address] [place] [address] [address] [place] [address] Radiation Oncologist Radiation Oncology 06/22/24 James Robert DO [address] [place] [address] MEDICAL ONCOLOGY, [facility] [address] [place] [address] Medical Oncologist/Spiritual Counselor Hematology and Oncology 07/12/24 documented as of this encounter
--- OUTSIDE RECORDS SUMMARY | 2024-09-30 12:38 | XMS_ITS | Encounter Summary ---
Author Organization [facility] Healthcare Address [address] [place] [address] Care Team Providers Care Journeyman Power Plant Operator Name Role Phone Corey Angel MD Primary Care Provider [phone] Clem Thomson MD Unavailable Harman Morales MD Unavailable [phone] James Robert DO Unavailable [phone] Reason for Visit * Reason Comments OTV Encounter Details Date Type Department Care Team (Late st Contact Info) Description 09/14/2024 OTV [facility] Medical Office Building 2 Radiation Oncology [address] [place] [address] Harman Morales MD [address] [place] [address] Social History Tobacco Use Types Packs/Day [...] on file Legal Sex Male 2:49 AM MANAGER BUSINESS INTELLIGENCE Gender Identity Male 05/22/2018 10:57 AM CDT Sexual Orientation Straight 11/03/2020 7: 01 PM MANAGER BUSINESS INTELLIGENCE Occupation Industry Job Start Date Job End Date working Not on file Not on file Not on file documented as of this encounter Last Filed Vital Signs Vital Sign Reading Time Taken Comments Blood Pressure 165/104 09/14/2024 1:21 PM MANAGER BUSINESS INTELLIGENCE Pulse 86 09/14/2024 1:21 PM MANAGER BUSINESS INTELLIGENCE Temperature - - Respiratory Rate - - Oxygen Saturation 98% 09/14/2024 1:21 PM MANAGER BUSINESS INTELLIGENCE Inhaled Oxygen Concentration - - Weight 118.8 kg (262 lb) 09/14/2024 1:21 PM MANAGER BUSINESS INTELLIGENCE Height - - Body Mass Index 37.06 08/09/2024 3:04 PM MANAGER BUSINESS INTELLIGENCE documented in this encounter Progress Notes * [...] pain that requires changes in pain management. GER BUSINESS INTELLIGENCE documented in this encounter Plan of Treatment Not on file documented as of this encounter Visit Diagnoses Not on filedocumented in this encounter Care Teams Journeyman Power Plant Operator Relationship Specialty Start Date End Date Corey Angel MD [address] [facility] [address] [place] [address] PCP - General Internal Medicine 06/18/21 Clem Thomson MD [address] [place] [address] Referring Physician Urology 06/14/24 Harman Morales MD [facility]8 [facility] [address] [place] [address] Radiation Oncologist Radiation Oncology 06/22/24 James Robert DO [address] [place] [address] MEDICAL ONCOLOGY, [facility] [address] [place] [address] Medical Oncologist/Business Improvement Manager Hematology and Oncology 07/12/24 documented as of this encounter
--- OUTSIDE RECORDS SUMMARY | 2024-09-30 12:38 | XMS_ITS | Encounter Summary ---
Author Organization [facility] Healthcare Address [address] [place] [address] Care Team Providers Care Hunting Sales Associate Name Role Phone Corey Angel MD Primary Care Provider [phone] Clem Thomson MD Unavailable Harman Morales MD Unavailable [phone] James Robert DO Unavailable [phone] Encounter Details Date Type Department Care Team [...] on file Legal Sex Male 2:49 AM INSTRUCTIONAL CONSULTANT Gender Identity Male 05/22/2018 10:57 AM CDT Sexual Orientation Straight 11/03/2020 7: 01 PM INSTRUCTIONAL CONSULTANT Occupation Industry Job Start Date Job End Date working Not on file Not on file Not on file documented as of this encounter Plan of Treatment Not on file documented as of this encounter Procedures Procedure Name Priority Date/Time Associated Diagnosis Comments RAD ONC ARIA SESSION SUMMARY 09/17/2024 1:16 PM INSTRUCTIONAL CONSULTANT documented in this encounter Results * RAD ONC ARIA SESSION SUMMARY (09/17/2024 1:16 PM INSTRUCTIONAL CONSULTANT) Course Name [id number] ARIA Course Plan Date 08/20/2024 12:00 PM ARIA Elapsed Days 12 ARIA Treatment Start Date 09/05/2024 ARIA Treatment Site [id number] ARIA Dose Given To Date (cGy) 2,250 ARIA Session Dosage Given (cGy) 250 ARIA Plan ID [email or web address]_L NS ARIA Fractions Treated 9 ARIA Prescribed Dose Per Fraction (cGy) 250 ARIA Prescribed Total Dose (cGy) 7,000 ARIA 09/17/2024 1:16 PM INSTRUCTIONAL CONSULTANT us Not In File Miscellaneous RADIATION ONCOLOGY ORD ERABLES Final Result ARIA documented in this encounter Visit Diagnoses Not on filedocumented in this encounter Care Teams Hunting Sales Associate Relationship Specialty Start Date End Date Corye Angel MD 68[address] [facility] [address] [place] [address] PCP - General Internal Medicine 06/18/21 Clem Thomson MD 4921 [facility] [address] [place] [address] Referring Physician Urology 06/14/24 Harman Morales MD 1418 [facility] [address] [place] [address] Radiation Oncologist Radiation Oncology 06/22/24 James Robert DO [address] [place] [address] MEDICAL ONCOLOGY, [address] [address] Medical Oncologist/Nurse General Duty Hematology and Oncology 07/12/24 documented as of this encounter
--- OUTSIDE RECORDS SUMMARY | 2024-09-30 12:38 | XMS_ITS | Clinical Summary ---
Author Organization 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 Knee pain 04/22/2016 Encounters Date Type Department Care Team Description 09/28/2024 1:00 PM [facility] Medical Office Building 2 Radiation Oncology [address] [place] [address] 09/28/2024 [facility] Medical Office Building 2 Radiation Oncology [address] [place] [address] 9[address] Ariela Boyle MD Prostate cancer (HCC) (Primary Dx) 09/28/2024 Orders Only RAD ONC TREATMENTS Miscellaneous, Not In File 09/27/2024 1:00 PM [facility] Medical Office Building 2 Radiation Oncology [address] [place] [address] 09/27/2024 Orders Only RAD ONC TREATMENTS Miscellaneous, Not In File 09/25/2024 [facility] Office Building 2 Radiation Oncology [address] [place] [address] 73693 Ariela Boyle MD 09/21/2024 1:00 PM [facility] Office Building 2 Radiation Oncology [address] [place] [address] 276[address] 09/21/2024 [facility] Medical Office [facility] 2 Radiation Oncology [address] [place] [address] 9[address]76 Harman Morales MD 09/21/2024 Orders Only RAD ONC TREATMENTS Miscellaneous, Not In File 09/20/2024 1:00 PM [facility] Medical Office Building 2 Radiation Oncology [address] [place] [address] 36442 09/20/2024 Orders Only RAD ONC TREATMENTS Miscellaneous, Not In File 09/18/2024 1:00 PM [facility] Medical Office Building 2 Radiation Oncology [address] [place] [address] 659[address] 09/18/2024 Orders Only RAD ONC TREATMENTS Miscellaneous, Not In File 09/17/2024 1:00 PM [facility] Medical Office Building 2 Radiation Oncology [address] [place] [address] 81286 09/17/2024 Orders Only RAD ONC TREATMENTS Miscellaneous, Not In File 09/14/2024 1:00 PM [facility] Medical Office Building 2 Radiation Oncology [address] [place] [address] 20384 09/14/2024 [facility] 2 Radiation Oncology [address] [place] [address] 91090 Harman Morales MD 09/14/2024 Orders Only RAD ONC TREATMENTS Miscellaneous, Not In File 09/13/2024 1:00 PM [facility] Office Building 2 Radiation Oncology [address] [place] [address] 43349 09/13/2024 Orders Only RAD ONC TREATMENTS Miscellaneous, Not In File 09/12/2024 1:00 PM [facility] Medical Office Building 2 Radiation Oncology [address] [place] [address] 13843 09/12/2024 Orders Only RAD ONC TREATMENTS Miscellaneous, Not In File 09/11/2024 1:00 PM [facility] Office Building 2 Radiation Oncology [address] [place] [address] 59091 09/11/2024 Orders Only RAD ONC TREATMENTS Miscellaneous, Not In File 09/10/2024 1:00 PM [facility] Medical Office Building 2 Radiation Oncology [address] [place] [address] 15566 09/10/2024 Orders Only RAD ONC TREATMENTS Miscellaneous, Not In File 09/07/2024 1:00 PM [facility] Medical Office Building 2 Radiation Oncology [address] [place] [address] 29499 09/07/2024 [facility] Medical Office Building 2 Radiation Oncology [address] [place] [address] 32930 Harman Morales MD 09/07/2024 Orders Only RAD ONC TREATMENTS Miscellaneous, Not In File 09/06/2024 1:[address] MAGISTRATE Clinical Support [facility] Medical Office Building 2 Radiation Oncology [address] [place] [address] 9[address]42 Prostate cancer (HCC) (Primary Dx); Elevated PSA 09/06/2024 1:[address] MAGIST[address] Treatment [facility] Medical Office Building 2 Radiation Oncology [address] [place] [address] 01408 09/06/2024 Orders Only RAD ONC TREATMENTS Miscellaneous, Not In File 09/05/2024 1:[address] MAGISTRATE Treatment [facility] Medical Office Building 2 Radiation Oncology [address] [place] [address] 24702 Harman Morales MD 09/05/2024 1:[address] MAGISTRATE Treatment [facility] Medical Office [facility] 2 Radiation Oncology [address] [place] [address] 85976 Harman Morales MD 09/05/2024 Orders Only RAD ONC TREATMENTS Miscellaneous, Not In File 09/03/2024 7:[address] MAGISTRATE Treatment [facility] Medical Office [facility] 2 Radiation Oncology [address] [place] [address] 67897 08/20/2024 11:[address] MAGISTRATE Treatment [facility] Office [facility] 2 Radiation Oncology [address] [place] [address] 09210 Harman Morales MD 08/20/2024 11:[address] MAGISTRATE Office Visit [facility] Medical Office Building 2 Radiation Oncology [address] [place] [address] 72268 Harman Morales MD Prostate cancer (HCC) (Primary Dx) 08/17/2024 10:[address] MAGISTRATE - 08/17/2024 11:[address] [facility] Radiation Oncology [address] [facility] [place] [address] Eliezer Pérez MD Prostate cancer (HCC) (Primary Dx) Discharge Disposition: Discharge to home or self care 08/13/[address] [facility] Medical Office Building 2 Radiation Oncology [address] [place] [address] 709[address] Taya Cartagena, MICAH 08/10/2024 Orders Only [facility] Office Building 2 Radiation Oncology [address] [place] [address] 33474 Taya Cartagena RN 08/09/2024 2:[address] MAGISTRATE Office Visit [facility] Oncology [address] [place] [address] [place] [phone] James Robert DO Prostate cancer (HCC) (Primary Dx) 08/03/2024 11:[address] MAGISTRATE - 08/03/2024 11:[address] MAGISTRATE Hospital Encounter [address] [address] Prostate cancer (HCC) Discharge Disposition: Discharge to home or self care 08/03/2024 11:[address] MAGISTRATE Lab [facility] Medical Group Outpatient Lab at [address] [address] 08/03/[address] [facility] Medical Office Building 2 Radiation Oncology [address] [place] [address] Taya Cartagena RN Prostate cancer (HCC) (Primary Dx) 07/11/2024 1:00 PM CDT Clinical Support [facility] Office Building 2 Radiation Oncology [address] [place] [address] 38641 Prostate cancer (HCC) (Primary Dx) 07/11/2024 1:00 PM CDT Office Visit [facility] Medical Office Building 2 Radiation Oncology [address] [place] [address]15 Harman Morales MD Prostate cancer (HCC) (Primary Dx) 07/06/2024 Orders Only [facility] Office Building 2 Radiation Oncology [address] [place] [address] Taya Cartagena RN 07/02/2024 2:17 PM CDT - 07/02/2024 11:59 PM CDT Hospital Encounter [facility] MRI [address] [place] [address] Prostate cancer (HCC) Discharge Disposition: Discharge to [...] on file Legal Sex Male 2:[address] MAGISTRATE Gender Identity Male 05/22/2018 10:57 AM CDT Sexual Orientation Straight 11/03/2020 7: [address] MAGISTRATE Occupation Industry Job Start Date Job End Date working Not on file Not on file Not on file Obstetrics History Last Filed Vital Signs Vital Sign Reading Time Taken Comments Blood Pressure 136/90 09/28/2024 1:[address] MAGISTRATE Pulse 59 09/28/2024 1:[address] MAGISTRATE Temperature 36.2 ??C (97.2 ??F) 08/09/2024 3:04 PM CS T Respiratory Rate 16 08/17/2024 12:[address] MAGISTRATE Oxygen Saturation 100% 09/28/2024 1:[address] MAGISTRATE Inhaled Oxygen Concentration - - Weight 121.6 kg (268 lb) 09/28/2024 1:[address] MAGISTRATE Height 179.1 cm (5' 10.5 ) 08/09/2024 3:04 PM CS T Body Mass Index 37.91 08/09/2024 3:[address] MAGISTRATE Plan of Treatment Health Maintenance Due Date [...] ONC ARIA SESSION SUMMARY 09/28/2024 1:[address] MAGISTRATE RAD ONC ARIA SESSION SUMMARY 09/27/2024 1:[address] MAGISTRATE RAD ONC ARIA SESSION SUMMARY 09/21/2024 1:[address] MAGISTRATE RAD ONC ARIA SESSION SUMMARY 09/20/2024 1:[address] MAGISTRATE RAD ONC ARIA SESSION SUMMARY 09/18/2024 1:[address] MAGISTRATE RAD ONC ARIA SESSION SUMMARY 09/17/2024 1:[address] MAGISTRATE RAD ONC ARIA SESSION SUMMARY 09/14/2024 1:[address] MAGISTRATE RAD ONC ARIA SESSION SUMMARY 09/13/2024 1:[address] MAGISTRATE RAD ONC ARIA SESSION SUMMARY 09/12/2024 1:[address] MAGISTRATE RAD ONC ARIA SESSION SUMMARY 09/11/2024 1:[address] MAGISTRATE RAD ONC ARIA SESSION SUMMARY 09/10/2024 1:[address] MAGISTRATE RAD ONC ARIA SESSION SUMMARY 09/07/2024 1:[address] MAGISTRATE RAD ONC ARIA SESSION SUMMARY 09/06/2024 1:[address] MAGISTRATE RAD ONC ARIA SESSION SUMMARY 09/05/2024 1:[address] MAGISTRATE URINALYSIS AND REFLEX TO MICROSCOPIC AND CULTURE Routine 08/03/2024 11:[address] MAGISTRATE Prostate cancer (HCC) MRI PELVIS W WO CONTRAST Schedule Routine, Read Routine (OP Routine) 07/02/2024 3:47 PM CDT Prostate cancer (HCC) PSA DIAGNOSTIC Routine 06/15/2024 3:04 PM CDT Prostate cancer (HCC) from Last 3 Months or Most Recently Relevant to Health Maintenance Results * RAD ONC ARIA SESSION SUMMARY (09/28/2024 1:[address] MAGISTRATE) Course Name [email or web address]_[email or web address] E_2023 ARIA Course Plan Date 08/20/2024 12:00 PM ARIA Elapsed Days 23 ARIA Treatment Start Date 09/05/2024 ARIA Treatment Site [id number] ARIA Dose Given To Date (cGy) 3,500 ARIA Session Dosage Given (cGy) 250 ARIA Plan ID PROSTATE_L NS ARIA Fractions Treated 14 ARIA Prescribed Dose Per Fraction (cGy) 250 ARIA Prescribed Total Dose (cGy) 7,000 ARIA 09/28/2024 1:[address] MAGISTRATE us Not In File Miscellaneous RADIATION ONCOLOGY ORD ERABLES Final Result ARIA * RAD ONC ARIA SESSION SUMMARY (09/27/2024 1:[address] MAGISTRATE) Course Name [email or web address]_[email or web address] E ARIA Course Plan Date 08/20/2024 12:00 PM ARIA Elapsed Days 22 ARIA Treatment Start Date 09/05/2024 ARIA Treatment Site [id number] ARIA Dose Given To Date (cGy) 3,250 ARIA Session Dosage Given (cGy) 250 ARIA Plan ID PROSTATE_L NS ARIA Fractions Treated 13 ARIA Prescribed Dose Per Fraction (cGy) 250 ARIA Prescribed Total Dose (cGy) 7,000 ARIA 09/27/2024 1:[address] MAGISTRATE us Not In File Miscellaneous RADIATION ONCOLOGY ORD ERABLES Final Result Performing Organization Address [facility] Co de Phone Number ARIA * RAD ONC ARIA SESSION SUMMARY (09/21/2024 1:[address] MAGISTRATE) Course Name [email or web address]_[email or web address] E ARIA Course Plan Date 08/20/2024 12:00 PM ARIA Elapsed Days 16 ARIA Treatment Start Date 09/05/2024 ARIA Treatment Site [id number] ARIA Dose Given To Date (cGy) 3,000 ARIA Session Dosage Given (cGy) 250 ARIA Plan ID PROSTATE_L NS ARIA Fractions Treated 12 ARIA Prescribed Dose Per Fraction (cGy) 250 ARIA Prescribed Total Dose (cGy) 7,000 ARIA 09/21/2024 1:[address] MAGISTRATE us Not In File Miscellaneous RADIATION ONCOLOGY ORD ERABLES Final Result ARIA * RAD ONC ARIA SESSION SUMMARY (09/20/2024 1:[address] MAGISTRATE) Course Name [email or web address]_[email or web address] E ARIA Course Plan Date 08/20/2024 12:00 PM ARIA Elapsed Days 15 ARIA Treatment Start Date 09/05/2024 ARIA Treatment Site [id number] ARIA Dose Given To Date (cGy) 2,750 ARIA Session Dosage Given (cGy) 250 ARIA Plan ID PROSTATE_L NS ARIA Fractions Treated 11 ARIA Prescribed Dose Per Fraction (cGy) 250 ARIA Prescribed Total Dose (cGy) 7,000 ARIA 09/20/2024 1:[address] MAGISTRATE us Not In File Miscellaneous RADIATION ONCOLOGY ORD ERABLES Final Result ARIA * RAD ONC ARIA SESSION SUMMARY (09/18/2024 1:[address] MAGISTRATE) Course Name [email or web address] ARIA Course Plan Date 08/20/2024 12:00 PM ARIA Elapsed Days 13 ARIA Treatment Start Date 09/05/2024 ARIA Treatment Site [id number] ARIA Dose Given To Date (cGy) 2,500 ARIA Session Dosage Given (cGy) 250 ARIA Plan ID PROSTATE_L NS ARIA Fractions Treated 10 ARIA Prescribed Dose Per Fraction (cGy) 250 ARIA Prescribed Total Dose (cGy) 7,000 ARIA 09/18/2024 1:[address] MAGISTRATE us Not In File Miscellaneous RADIATION ONCOLOGY ORD ERABLES Final Result ARIA * RAD ONC ARIA SESSION SUMMARY (09/17/2024 1:[address] MAGISTRATE) Course Name [email or web address]_[email or web address] ARIA Course Plan Date 08/20/2024 12:00 PM ARIA Elapsed Days 12 ARIA Treatment Start Date 09/05/2024 ARIA Treatment Site [id number] ARIA Dose Given To Date (cGy) 2,250 ARIA Session Dosage Given (cGy) 250 ARIA Plan ID PROSTATE_L NS ARIA Fractions Treated 9 ARIA Prescribed Dose Per Fraction (cGy) 250 ARIA Prescribed Total Dose (cGy) 7,000 ARIA 09/17/2024 1:[address] MAGISTRATE us Not In File Miscellaneous RADIATION ONCOLOGY ORD ERABLES Final Result Performing Organization Address City/[facility]/ZIP Co de Phone Number ARIA * RAD ONC ARIA SESSION SUMMARY (09/14/2024 1:[address] MAGISTRATE) Course Name C1_PROSTAT E_2023 ARIA Course Plan Date 08/20/2024 12:00 PM ARIA Elapsed Days 9 ARIA Treatment Start Date 09/05/2024 ARIA Treatment Site [id number] ARIA Dose Given To Date (cGy) 2,000 ARIA Session Dosage Given (cGy) 250 ARIA Plan ID PROSTATE_L NS ARIA Fractions Treated 8 ARIA Prescribed Dose Per Fraction (cGy) 250 ARIA Prescribed Total Dose (cGy) 7,000 ARIA 09/14/2024 1:[address] MAGISTRATE us Not In File Miscellaneous RADIATION ONCOLOGY ORD ERABLES Final Result Performing Organization Address [facility] de Phone Number ARIA * RAD ONC ARIA SESSION SUMMARY (09/13/2024 1:[address] MAGISTRATE) Course Name C1_PROSTAT E_2023 ARIA Course Plan Date 08/20/2024 12:00 PM ARIA Elapsed Days 8 ARIA Treatment Start Date 09/05/2024 ARIA Treatment Site [id number] ARIA Dose Given To Date (cGy) 1,750 ARIA Session Dosage Given (cGy) 250 ARIA Plan ID PROSTATE_L NS ARIA Fractions Treated 7 ARIA Prescribed Dose Per Fraction (cGy) 250 ARIA Prescribed Total Dose (cGy) 7,000 ARIA 09/13/2024 1:[address] MAGISTRATE us Not In File Miscellaneous RADIATION ONCOLOGY ORD ERABLES Final Result ARIA * RAD ONC ARIA SESSION SUMMARY (09/12/2024 1:[address] MAGISTRATE) Course Name [email or web address]_PROSTAT E ARIA Course Plan Date 08/20/2024 12:00 PM ARIA Elapsed Days 7 ARIA Treatment Start Date 09/05/2024 ARIA Treatment Site [id number] ARIA Dose Given To Date (cGy) 1,500 ARIA Session Dosage Given (cGy) 250 ARIA Plan ID PROSTATE_L NS ARIA Fractions Treated 6 ARIA Prescribed Dose Per Fraction (cGy) 250 ARIA Prescribed Total Dose (cGy) 7,000 ARIA 09/12/2024 1:[address] MAGISTRATE us Not In File Miscellaneous RADIATION ONCOLOGY ORD ERABLES Final Result Performing Organization Address [facility] Co de Phone Number ARIA * RAD ONC ARIA SESSION SUMMARY (09/11/2024 1:[address] MAGISTRATE) Course Name [email or web address]_PROSTAT ARIA Course Plan Date 08/20/2024 12:00 PM ARIA Elapsed Days 6 ARIA Treatment Start Date 09/05/2024 ARIA Treatment Site [id number] ARIA Dose Given To Date (cGy) 1,250 ARIA Session Dosage Given (cGy) 250 ARIA Plan ID PROSTATE_L NS ARIA Fractions Treated 5 ARIA Prescribed Dose Per Fraction (cGy) 250 ARIA Prescribed Total Dose (cGy) 7,000 ARIA 09/11/2024 1:[address] MAGISTRATE us Not In File Miscellaneous RADIATION ONCOLOGY ORD ERABLES Final Result ARIA * RAD ONC ARIA SESSION SUMMARY (09/10/2024 1:[address] MAGISTRATE) Course Name [email or web address]_PROSTAT ARIA Course Plan Date 08/20/2024 12:00 PM ARIA Elapsed Days 5 ARIA Treatment Start Date 09/05/2024 ARIA Treatment Site [id number] ARIA Dose Given To Date (cGy) 1,000 ARIA Session Dosage Given (cGy) 250 ARIA Plan ID PROSTATE_L NS ARIA Fractions Treated 4 ARIA Prescribed Dose Per Fraction (cGy) 250 ARIA Prescribed Total Dose (cGy) 7,000 ARIA 09/10/2024 1:[address] MAGISTRATE us Not In File Miscellaneous RADIATION ONCOLOGY ORD ERABLES Final Result Performing Organization Address City/[facility]/ZIP Co de Phone Number TYRONE * RAD ONC ARIA SESSION SUMMARY (09/07/2024 1:[address] MAGISTRATE) Course Name C1_PROSTAT E_2023 ARIA Course Plan Date 08/20/2024 12:00 PM ARIA Elapsed Days 2 ARIA Treatment Start Date 09/05/2024 ARIA Treatment Site [id number] ARIA Dose Given To Date (cGy) 750 ARIA Session Dosage Given (cGy) 250 ARIA Plan ID PROSTATE_L NS ARIA Fractions Treated 3 ARIA Prescribed Dose Per Fraction (cGy) 250 ARIA Prescribed Total Dose (cGy) 7,000 ARIA 09/07/2024 1:[address] MAGISTRATE us Not In File Miscellaneous RADIATION ONCOLOGY ORD ERABLES Final Result Performing Organization Address [facility] Co de Phone Number TYRONE * RAD ONC ARIA SESSION SUMMARY (09/06/2024 1:[address] MAGISTRATE) Course Name C1_PROSTAT E_2023 ARIA Course Plan Date 08/20/2024 12:00 PM ARIA Elapsed Days 1 ARIA Treatment Start Date 09/05/2024 ARIA Treatment Site [id number] ARIA Dose Given To Date (cGy) 500 ARIA Session Dosage Given (cGy) 250 ARIA Plan ID PROSTATE_L NS ARIA Fractions Treated 2 ARIA Prescribed Dose Per Fraction (cGy) 250 ARIA Prescribed Total Dose (cGy) 7,000 ARIA 09/06/2024 1:[address] MAGISTRATE us Not In File Miscellaneous RADIATION ONCOLOGY ORD ERABLES Final Result TYRONE * RAD ONC ARIA SESSION SUMMARY (09/05/2024 1:[address] MAGISTRATE) Course Name C1_PROSTAT E_2023 ARIA Course Plan Date 08/20/2024 12:00 PM ARIA Elapsed Days 0 ARIA Treatment Start Date 09/05/2024 ARIA Treatment Site [id number] ARIA Dose Given To Date (cGy) 250 ARIA Session Dosage Given (cGy) 250 ARIA Plan ID PROSTATE_L NS ARIA Fractions Treated 1 ARIA Prescribed Dose Per Fraction (cGy) 250 ARIA Prescribed Total Dose (cGy) 7,000 ARIA 09/05/2024 1:[address] MAGISTRATE us Not In File Miscellaneous RADIATION ONCOLOGY ORD ERABLES Final Result Performing Organization Address [facility] Co de Phone Number TYRONE * Urinalysis reflex to microscopic and culture Urine, clean voided (08/03/2024 11:[address] MAGISTRATE) Color, ur Straw Yellow Clarity, ur Clear [...] tendency for uric acid stone formation. Source: Color Promos Current Interpretive Data was last revised on [...] CH Urine, clean voided 08/03/2024 11:[address] MAGISTRATE 08/03/2024 3:[address] MAGISTRATE us Harman Morales MD LAB MICROBIOLOGY - GENERAL ORD ERABLES Final Result [facility] [address] [address] Department [place] [address] * MRI Pelvis W WO Contrast (07/02/2024 [...] D: ??07/04/2024 1:17 PM T: Report ID: [id number] Reading Location: [id number] Procedure Note Koffi Cormier DO - 10/09/2024 [...] History of prostate biopsyon 04/30/2024 with a [place] score of 7. correlated with recent clinic notesand biopsy results if available. FINDINGS: PROSTATE: Size: 4.1 x 4.7 x 4.2 cm. Volume: 42.38 cc.PSA: 10 Ng/mL. PSA density: 0.24 Ng/ml/cc. TRANSITIONAL ZONE: There are multiple small nodules of varying [id number] with T2 hypointense rims as seen with [...] Koffi Cormier D.O. PS T: Report ID: [id number] Reading Location: [place] [address] Harman Morales MD IMG MRI PROCEDURES Final [...] Final Result Performing Organization Address City/State/ZIP Co va Phone Number SHILPA [address] Department [place] [address] from Last 3 Months or Most Recently Relevant to Health Maintenance Insurance [employer] CHOICE MEDICARE PPO MEDICARE FOR LIFE FOR LIFE [employer] CHOICE MEDICARE PPO Care Teams Wharf Worker Relationship Specialty Start Date End Date Corey Angel MD [address] [facility] [address] [place] [address] PCP - General Internal Medicine 9/23/21 Clem Thomson MD [address] [place] [address] Referring Physician Urology 06/14/24 Harman Morales MD [facility] [address] [place], [place] [id number] Radiation Oncologist Radiation Oncology 06/22/24 James Robert DO [address] [place] [address] MEDICAL ONCOLOGY, [facility] [address] [place] [address] Medical Oncologist/Director Life [employer] Hematology and Oncology 07/12/24
--- OUTSIDE RECORDS SUMMARY | 2024-09-30 12:38 | XMS_ITS | Encounter Summary ---
Author Organization [facility] Healthcare Address [address] [place] [address] Care Team Providers Care Pe Teacher Name Role Phone Corey Angel MD Primary Care Provider [phone] Clem Thomson MD Unavailable Harman Morales MD Unavailable [phone] James Robert DO Unavailable [phone] Encounter Details Date Type Department Care Team (Late st Contact Info) Description 09/21/2024 1:00 PM FIELD AUTO APPRAISER Treatment [facility] Medical Office Building 2 Radiation Oncology [address] [place] [phone] Social History Tobacco Use Types Packs/Day [...] on file Legal Sex Male 2:49 AM FIELD AUT[employer] APPRAISER Gender Identity Male 05/22/2018 10:57 AM CDT Sexual Orientation Straight 11/03/2020 7: 01 PM FIELD [employer]ER Occupation Industry Job Start Date Job End Date working Not on file Not on file Not on file documented as of this encounter Plan of Treatment Not on file documented as of this encounter Visit Diagnoses Not on filedocumented in this encounter Care Teams Pe Teacher Relationship Specialty Start Date End Date Corey Angel MD [address] [facility] [address] [place] [address] PCP - General Internal Medicine 06/18/21 Clem Thomson MD [address] [facility] [address] [facility] [place] [address] Referring Physician Urology 06/14/24 Harman Morales MD [address] [place] [address] [address] [place] [address] Radiation Oncologist Radiation Oncology 06/22/24 James Robert DO [address] [place] [address] MEDICAL ONCOLOGY, [facility] [address] [place] [address] Medical Oncologist/Director Of Partnerships Hematology and Oncology 07/12/24 documented as of this encounter
--- OUTSIDE RECORDS SUMMARY | 2024-09-30 12:38 | XMS_ITS | Encounter Summary ---
Author Organization [facility] Healthcare Address [address] [place] [address] Care Team Providers Care Park Interpretive Ranger Name Role Phone Corey Angel MD Primary Care Provider [phone] Clem Thomson MD Unavailable Harman Morales MD Unavailable [phone] James Robert DO Unavailable [phone] Encounter Details Date Type Department Care Team [...] on file Legal Sex Male 2:49 AM TANK ERECTOR Gender Identity Male 05/22/2018 10:57 AM CDT Sexual Orientation Straight 11/03/2020 7: 01 PM TANK ERECTOR Occupation Industry Job Start Date Job End Date working Not on file Not on file Not on file documented as of this encounter Plan of Treatment Not on file documented as of this encounter Procedures Procedure Name Priority Date/Time Associated Diagnosis Comments RAD ONC ARIA SESSION SUMMARY 09/18/2024 1:16 PM TANK ERECTOR documented in this encounter Results * RAD ONC ARIA SESSION SUMMARY (09/18/2024 1:16 PM TANK ERECTOR) Course Name [id number] [id number] ARIA Course Plan Date 08/20/2024 12:00 PM ARIA Elapsed Days 13 ARIA Treatment Start Date 09/05/2024 ARIA Treatment Site [id number] ARIA Dose Given To Date (cGy) 2,500 ARIA Session Dosage Given (cGy) 250 ARIA Plan ID PROSTATE_L NS ARIA Fractions Treated 10 ARIA Prescribed Dose Per Fraction (cGy) 250 ARIA Prescribed Total Dose (cGy) 7,000 ARIA 09/18/2024 1:16 PM TANK ERECTOR us Not In File Miscellaneous RADIATION ONCOLOGY ORD ERABLES Final Result ARIA documented in this encounter Visit Diagnoses Not on filedocumented in this encounter Care Teams Park Interpretive Ranger Relationship Specialty Start Date End Date Corey Angel MD [address] [facility] [address] [place] [address] PCP - General Internal Medicine 06/18/21 Clem Thomson MD [address] [facility] [address] [place] [address] Referring Physician Urology 06/14/24 Harman Morales MD [address] [facility] [address] [place] [address] Radiation Oncologist Radiation Oncology 06/22/24 James Robert DO [address] [place] [address] MEDICAL ONCOLOGY, [address] [address] Medical Oncologist/Dietary Aide Cook Hematology and Oncology 07/12/24 documented as of this encounter
--- OUTSIDE RECORDS SUMMARY | 2024-09-30 12:38 | XMS_ITS | Encounter Summary ---
Author Organization [facility] Healthcare Address [address] [place] [address] Care Team Providers Care Client Executive Name Role Phone Corey Angel MD Primary Care Provider [phone] Clem Thomson MD Unavailable Harman Morales MD Unavailable [phone] James Robert DO Unavailable [phone] Encounter Details Date Type Department Care Team (Late st Contact Info) Description 09/18/2024 1:00 PM OCCUPATIONAL THERAPY MANAGER Treatment [facility] Medical Office Building 2 Radiation Oncology [address] [place] [id number] Social History Tobacco Use Types Packs/Day [...] on file Legal Sex Male 2:49 AM OCCUPATIONAL THERAPY MANAGER Gender Identity Male 05/22/2018 10:57 AM CDT Sexual Orientation Straight 11/03/2020 7: 01 PM OCCUPATIONAL THERAPY MANAGER Occupation Industry Job Start Date Job End Date working Not on file Not on file Not on file documented as of this encounter Plan of Treatment Not on file documented as of this encounter Visit Diagnoses Not on filedocumented in this encounter Care Teams Client Executive Relationship Specialty Start Date End Date Corey Angel MD [address] [facility] [address] [place] [address] PCP - General Internal Medicine 06/18/21 Clem Thomson MD [address] [facility] [address] [facility] [place] [address] Referring Physician Urology 06/14/24 Harman Morales MD [address] [place] [address] [address] [place] [address] Radiation Oncologist Radiation Oncology 06/22/24 James Robert DO [address] [place] [address] MEDICAL ONCOLOGY, [facility] [address] [place] [address] Medical Oncologist/Steel Worker Hematology and Oncology 07/12/24 documented as of this encounter
--- OUTSIDE RECORDS SUMMARY | 2024-09-30 12:38 | XMS_ITS | Encounter Summary ---
Author Organization [facility] Healthcare Address [address] [place] [address] Care Team Providers Care Coil Tester Name Role Phone Corey Angel MD Primary Care Provider Clem Thomson MD Unavailable Harman Morales MD Unavailable [phone] James Robert DO Unavailable [phone] Encounter Details Date Type Department Care Team [...] on file Legal Sex Male 2:49 AM ERP PROGRAMMER Gender Identity Male 05/22/2018 10:57 AM CDT Sexual Orientation Straight 11/03/2020 7: 01 PM ERP PROGRAMMER Occupation Industry Job Start Date Job End Date working Not on file Not on file Not on file documented as of this encounter Plan of Treatment Not on file documented as of this encounter Procedures Procedure Name Priority Date/Time Associated Diagnosis Comments RAD ONC ARIA SESSION SUMMARY 09/20/2024 1:11 PM ERP PROGRAMMER documented in this encounter Results * RAD ONC ARIA SESSION SUMMARY (09/20/2024 1:11 PM ERP PROGRAMMER) Course Name [email or web address] E_2023 ARIA Course Plan Date 08/20/2024 12:00 PM ARIA Elapsed Days 15 ARIA Treatment Start Date 09/05/2024 ARIA Treatment Site [id number] ARIA Dose Given To Date (cGy) 2,750 ARIA Session Dosage Given (cGy) 250 ARIA Plan ID PROSTATE_L NS ARIA Fractions Treated 11 ARIA Prescribed Dose Per Fraction (cGy) 250 ARIA Prescribed Total Dose (cGy) 7,000 ARIA 09/20/2024 1:11 PM ERP PROGRAMMER us Not In File Miscellaneous RADIATION ONCOLOGY ORD ERABLES Final Result ARIA documented in this encounter Visit Diagnoses Not on filedocumented in this encounter Care Teams Coil Tester Relationship Specialty Start Date End Date Corey Angel MD [address] [facility] [address] [place] [address] PCP - General Internal Medicine 06/18/21 Clem Thomson MD [address] [facility] [address] [place] [address] Referring Physician Urology 06/14/24 Harman Morales MD [address] [facility] [address] [place] [address] Radiation Oncologist Radiation Oncology 06/22/24 James Robert DO [address] [place] [address] MEDICAL ONCOLOGY, [address] [address] Medical Oncologist/Grit Removal Operator Hematology and Oncology 07/12/24 documented as of this encounter
--- OUTSIDE RECORDS SUMMARY | 2024-09-30 12:38 | XMS_ITS ---
Author Organization [facility] Address [address] [place] [address] Care Team Providers Care Chaperon Name Role Phone Corey Angel MD Primary Care Provider [phone] Clem Thomson MD Unavailable Harman Moarles MD Unavailable [phone] James Robert DO Unavailable [phone] Active Problems Problem Noted Date Diagnosed Date Prostate cancer 05/02/2024 Cancer Staging:Clinical stage from 06/28/2024:Stage IIIB(cT3b, cN0, cM0, PSA: 9.1, Grade Group: 2) - Signed by Harman Morales MD on 06/28/2024 Elevated PSA 12/19/2023 Ascending aortic aneurysm 06/19/2021 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
--- OUTSIDE RECORDS SUMMARY | 2024-09-30 12:38 | XMS_ITS | Referral Summary ---
Author Organization [facility] Address [address] [place] [address] Care Team Providers Care Spa Experience Coordinator Name Role Phone Corey Angel MD Primary Care Provider Clem Thomson MD Unavailable Harman Morales MD Unavailable [phone] James Robert DO Unavailable Encounters Date Type Department Care Team Description 09/28/2024 O[facility] Medical Office Building 2 Radiation Oncology [address] [place] [address] 60590 Ariela Boyle MD Prostate cancer (HCC) (Primary Dx) 09/28/2024 Orders Only RAD ONC TREATMENTS Miscellaneous, Not In File 09/28/2024 1:00 PM FLOORWORKER DISTRIBUTOR Treatment [facility] Medical Office Building 2 Radiation Oncology [address] [place] [address] 54561 09/27/2024 Orders Only RAD ONC TREATMENTS Miscellaneous, Not In File 09/27/2024 1:00 PM FLOORWORKER DISTRIBUTOR Treatment [facility] Medical Office Building 2 Radiation Oncology [address] [place] [address] 01307 09/25/2024 Telephone [facility] Medical Office Building 2 Radiation Oncology [address] [place] [address] 50037 Ariela Boyle MD 09/21/2024 [facility] Medical Office Building 2 Radiation Oncology [address] [place] [address] 93729 Harman Morales MD 09/21/2024 Orders Only RAD ONC TREATMENTS Miscellaneous, Not In File 09/21/2024 1:00 PM FLOORWORKER DISTRIBUTOR Treatment [facility] Medical Office Building 2 Radiation Oncology [address] [place] [address] 61412 09/20/2024 Orders Only RAD ONC TREATMENTS Miscellaneous, Not In File 09/20/2024 1:00 PM FLOORWORKER DISTRIBUTOR [facility] Medical Office Building 2 Radiation Oncology [address] [place] [address] 79066 09/18/2024 Orders Only RAD ONC TREATMENTS Miscellaneous, Not In File 09/18/2024 1:00 PM FLOORWORKER DISTRIBUTOR [facility] Medical Office Building 2 Radiation Oncology [address] [place] [address] 52311 09/17/2024 Orders Only RAD ONC TREATMENTS Miscellaneous, Not In File 09/17/2024 1:00 PM [facility] Medical Office Building 2 Radiation Oncology [address] [place] [address] 37675 09/14/2024 [facility] Medical Office Building 2 Radiation Oncology [address] [place] [address] 50706 Harman Morales MD 09/14/2024 Orders Only RAD ONC TREATMENTS Miscellaneous, Not In File 09/14/2024 1:00 PM FLOORWORKER DISTRIBUTOR [facility] Medical Office Building 2 Radiation Oncology [address] [place] [address] 13495 09/13/2024 Orders Only RAD ONC TREATMENTS Miscellaneous, Not In File 09/13/2024 1:00 PM FLOORWORKER DISTRIBUTOR [facility] Medical Office Building 2 Radiation Oncology [address] [place] [address] 96788 09/12/2024 Orders Only RAD ONC TREATMENTS Miscellaneous, Not In File 09/12/2024 1:00 PM FLOORWORKER DISTRIBUTOR [facility] Medical Office Building 2 Radiation Oncology [address] [place] [address] 44028 09/11/2024 Orders Only RAD ONC TREATMENTS Miscellaneous, Not In File 09/11/2024 1:00 PM FLOORWORKER DISTRIBUTOR Treatment [facility] Medical Office Building 2 Radiation Oncology [address] [place] [address] 87077 09/10/2024 Orders Only RAD ONC TREATMENTS Miscellaneous, Not In File 09/10/2024 1:00 PM FLOORWORKER DISTRIBUTOR Treatment [facility] Medical Office Building 2 Radiation Oncology [address] [place] [address] 84833 09/07/2024 OTV [facility] Medical Office Building 2 Radiation Oncology [address] [place] [address] 49506 Harman Morales MD 09/07/2024 Orders Only RAD ONC TREATMENTS Miscellaneous, Not In File 09/07/2024 1:00 PM FLOORWORKER DISTRIBUTOR Treatment [facility] Medical Office Building 2 Radiation Oncology [address] [place] [address] 07599 09/06/2024 Orders Only RAD ONC TREATMENTS Miscellaneous, Not In File 09/06/2024 1:15 PM FLOORWORKER DISTRIBUTOR Clinical Support [facility] Office Building 2 Radiation Oncology [address] [place] [address] 72313 Prostate cancer (HCC) (Primary Dx); Elevated PSA 09/06/2024 1:00 PM FLOORWORKER DISTRIBUTOR Treatment [facility] Medical Office Building 2 Radiation Oncology [address] [place] [address] 95742 09/05/2024 Orders Only RAD ONC TREATMENTS Miscellaneous, Not In File 09/05/2024 1:00 PM FLOORWORKER DISTRIBUTOR Treatment [facility] Medical Office Building 2 Radiation Oncology [address] [place] [address] 55105 Harman Morales MD 09/05/2024 1:15 PM FLOORWORKER DISTRIBUTOR Treatment [facility] Medical Office Building 2 Radiation Oncology [address] [place] [address] 81703 Harman Morales MD 09/03/2024 7:15 PM FLOORWORKER DISTRIBUTOR Treatment [facility] Medical Office Building 2 Radiation Oncology [address] [place] [address] 59532 08/20/2024 11:00 AM FLOORWORKER DISTRIBUTOR Office Visit [facility] Medical Office Building 2 Radiation Oncology [address] [place] [address] 88641 Harman Morales MD Prostate cancer (HCC) (Primary Dx) 08/20/2024 11:30 AM FLOORWORKER DISTRIBUTOR Treatment [facility] Medical Office Building 2 Radiation Oncology [address] [place] [address] 02670 Harman Morales MD 08/17/2024 10:50 AM FLOORWORKER DISTRIBUTOR - 08/17/2024 11:59 PM FLOORWORKER DISTRIBUTOR Hospital Encounter [facility] Advanced [facility] Radiation Oncology [address] [place] [address] 47[address] Eliezer Pérez MD Prostate cancer (HCC) (Primary Dx) Discharge Disposition: Discharge to home or self care 08/13/2024 Telephone [facility] Medical Office Building 2 Radiation Oncology [address] [place] [address] 83581 Taya Cartagena, MICAH 08/10/2024 Orders Only [facility] Office [facility] 2 Radiation Oncology [address] [place] [address] 94269 Taya Cartagena, MICAH 08/09/2024 2:30 PM FLOORWORKER DISTRIBUTOR Office Visit [facility] Oncology [address] [place] [phone] James Robert DO Prostate cancer (HCC) (Primary Dx) 08/03/2024 11:38 AM FLOORWORKER DISTRIBUTOR - 08/03/2024 11:59 PM FLOORWORKER DISTRIBUTOR Hospital Encounter [place] [id number] [place] [address] Prostate cancer (HCC) Discharge Disposition: Discharge to home or self care 08/03/2024 Orders Only [facility] Medical Office Building 2 Radiation Oncology [address] [place] [address] 66573 Taya Cartagena RN Prostate cancer (HCC) (Primary Dx) 08/03/2024 11:15 AM FLOORWORKER DISTRIBUTOR Lab [facility] Medical [facility] Outpatient Lab at [address] [address] 07/11/2024 1:00 PM CDT Clinical Support [facility] Medical Office Building 2 Radiation Oncology [address] [place] [address] 40699 Prostate cancer (HCC) (Primary Dx) 07/11/2024 1:00 PM CDT Office Visit [facility] Medical Office Building 2 Radiation Oncology [address] [place] [address] 34757 Harman Morales MD Prostate cancer (HCC) (Primary Dx) 07/06/2024 Orders Only [facility] Medical Office Building 2 Radiation Oncology [address] [place] [address] 08260 Taya Cartagena RN 07/02/2024 2:17 PM CDT - 07/02/2024 11:59 PM CDT Hospital Encounter [facility] [address] [place] [address] Prostate cancer (HCC) Discharge Disposition: Discharge to [...] 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 Knee pain 04/22/2016 Immunizations [...] on file Legal Sex Male 2:49 AM FLOORWORKER DISTRIBUTOR Gender Identity Male 05/22/2018 10:57 AM CDT Sexual Orientation Straight 11/03/2020 7: 01 PM FLOORWORKER DISTRIBUTOR Occupation Industry Job Start Date Job End Date working Not on file Not on file Not on file Last Filed Vital Signs Vital Sign Reading Time Taken Comments Blood Pressure 136/90 09/28/2024 1:22 PM FLOORWORKER DISTRIBUTOR Pulse 59 09/28/2024 1:22 PM FLOORWORKER DISTRIBUTOR Temperature 36.2 ??C (97.2 ??F) 08/09/2024 3:04 PM CS T Respiratory Rate 16 08/17/2024 12:20 PM FLOORWORKER DISTRIBUTOR Oxygen Saturation 100% 09/28/2024 1:22 PM FLOORWORKER DISTRIBUTOR Inhaled Oxygen Concentration - - Weight 121.6 kg (268 lb) 09/28/2024 1:22 PM FLOORWORKER DISTRIBUTOR Height 179.1 cm (5' 10.5 ) 08/09/2024 3:04 PM CS T Body Mass Index 37.91 08/09/2024 3:04 PM FLOORWORKER DISTRIBUTOR Plan of Treatment Not on file Procedures Procedure Name Priority Date/Time Associated Diagnosis Comments RAD ONC ARIA SESSION SUMMARY 09/28/2024 1:13 PM FLOORWORKER DISTRIBUTOR RAD ONC ARIA SESSION SUMMARY 09/27/2024 1:07 PM FLOORWORKER DISTRIBUTOR RAD ONC ARIA SESSION SUMMARY 09/21/2024 1:09 PM FLOORWORKER DISTRIBUTOR RAD ONC ARIA SESSION SUMMARY 09/20/2024 1:11 PM FLOORWORKER DISTRIBUTOR RAD ONC ARIA SESSION SUMMARY 09/18/2024 1:16 PM FLOORWORKER DISTRIBUTOR RAD ONC ARIA SESSION SUMMARY 09/17/2024 1:16 PM FLOORWORKER DISTRIBUTOR RAD ONC ARIA SESSION SUMMARY 09/14/2024 1:12 PM FLOORWORKER DISTRIBUTOR RAD ONC ARIA SESSION SUMMARY 09/13/2024 1:23 PM FLOORWORKER DISTRIBUTOR RAD ONC ARIA SESSION SUMMARY 09/12/2024 1:16 PM FLOORWORKER DISTRIBUTOR RAD ONC ARIA SESSION SUMMARY 09/11/2024 1:16 PM FLOORWORKER DISTRIBUTOR RAD ONC ARIA SESSION SUMMARY 09/10/2024 1:15 PM FLOORWORKER DISTRIBUTOR RAD ONC ARIA SESSION SUMMARY 09/07/2024 1:17 PM FLOORWORKER DISTRIBUTOR RAD ONC ARIA SESSION SUMMARY 09/06/2024 1:12 PM FLOORWORKER DISTRIBUTOR RAD ONC ARIA SESSION SUMMARY 09/05/2024 1:23 PM FLOORWORKER DISTRIBUTOR URINALYSIS AND REFLEX TO MICROSCOPIC AND CULTURE Routine 08/03/2024 11:39 AM FLOORWORKER DISTRIBUTOR Prostate cancer (HCC) MRI PELVIS W WO CONTRAST Schedule Routine, Read Routine (OP Routine) 07/02/2024 3:47 PM CDT Prostate cancer (HCC) PSA DIAGNOSTIC Routine 06/15/2024 3:04 PM CDT Prostate cancer (HCC) from Last 3 Months or Most Recently Relevant to Health Maintenance Results * RAD ONC ARIA SESSION SUMMARY (09/28/2024 1:13 PM FLOORWORKER DISTRIBUTOR) Course Name [email or web address]_[email or web address] E_2023 ARIA Course Plan Date 08/20/2024 12:00 PM ARIA Elapsed Days 23 ARIA Treatment Start Date 09/05/2024 ARIA Treatment Site [id number]_7000 ARIA Dose Given To Date (cGy) 3,500 ARIA Session Dosage Given (cGy) 250 ARIA Plan ID PROSTATE_L NS ARIA Fractions Treated 14 ARIA Prescribed Dose Per Fraction (cGy) 250 ARIA Prescribed Total Dose (cGy) 7,000 ARIA 09/28/2024 1:13 PM FLOORWORKER DISTRIBUTOR us Not In File Miscellaneous RADIATION ONCOLOGY ORD ERABLES Final Result Performing Organization Address City/[facility] Co de Phone Number ARIKay * RAD ONC ARIA SESSION SUMMARY (09/27/2024 1:07 PM FLOORWORKER DISTRIBUTOR) Course Name [email or web address]_[email or web address] E ARIA Course Plan Date 08/20/2024 12:00 PM ARIA Elapsed Days 22 ARIA Treatment Start Date 09/05/2024 ARIA Treatment Site [id number] ARIA Dose Given To Date (cGy) 3,250 ARIA Session Dosage Given (cGy) 250 ARIA Plan ID PROSTATE_L NS ARIA Fractions Treated 13 ARIA Prescribed Dose Per Fraction (cGy) 250 ARIA Prescribed Total Dose (cGy) 7,000 ARIA 09/27/2024 1:07 PM FLOORWORKER DISTRIBUTOR us Not In File Miscellaneous RADIATION ONCOLOGY ORD ERABLES Final Result ARIKay * RAD ONC ARIA SESSION SUMMARY (09/21/2024 1:09 PM FLOORWORKER DISTRIBUTOR) Course Name [email or web address]_[email or web address] E ARIA Course Plan Date 08/20/2024 12:00 PM ARIA Elapsed Days 16 ARIA Treatment Start Date 09/05/2024 ARIA Treatment Site [id number]_7000 ARIA Dose Given To Date (cGy) 3,000 ARIA Session Dosage Given (cGy) 250 ARIA Plan ID PROSTATE_L NS ARIA Fractions Treated 12 ARIA Prescribed Dose Per Fraction (cGy) 250 ARIA Prescribed Total Dose (cGy) 7,000 ARIA 09/21/2024 1:09 PM FLOORWORKER DISTRIBUTOR us Not In File Miscellaneous RADIATION ONCOLOGY ORD ERABLES Final Result ARIA * RAD ONC ARIA SESSION SUMMARY (09/20/2024 1:11 PM FLOORWORKER DISTRIBUTOR) Course Name [email or web address]_[email or web address] ARIA Course Plan Date 08/20/2024 12:00 PM ARIA Elapsed Days 15 ARIA Treatment Start Date 09/05/2024 ARIA Treatment Site [id number]_7000 ARIA Dose Given To Date (cGy) 2,750 ARIA Session Dosage Given (cGy) 250 ARIA Plan ID PROSTATE_L NS ARIA Fractions Treated 11 ARIA Prescribed Dose Per Fraction (cGy) 250 ARIA Prescribed Total Dose (cGy) 7,000 ARIA 09/20/2024 1:11 PM FLOORWORKER DISTRIBUTOR us Not In File Miscellaneous RADIATION ONCOLOGY ORD ERABLES Final Result ARIA * RAD ONC ARIA SESSION SUMMARY (09/18/2024 1:16 PM FLOORWORKER DISTRIBUTOR) Course Name [email or web address]_PROSTAT E ARIA Course Plan Date 08/20/2024 12:00 PM ARIA Elapsed Days 13 ARIA Treatment Start Date 09/05/2024 ARIA Treatment Site [id number]_7000 ARIA Dose Given To Date (cGy) 2,500 ARIA Session Dosage Given (cGy) 250 ARIA Plan ID PROSTATE_L NS ARIA Fractions Treated 10 ARIA Prescribed Dose Per Fraction (cGy) 250 ARIA Prescribed Total Dose (cGy) 7,000 ARIA 09/18/2024 1:16 PM FLOORWORKER DISTRIBUTOR us Not In File Miscellaneous RADIATION ONCOLOGY ORD ERABLES Final Result ARIA * RAD ONC ARIA SESSION SUMMARY (09/17/2024 1:16 PM FLOORWORKER DISTRIBUTOR) Course Name C1_PROSTAT E_2023 ARIA Course Plan Date 08/20/2024 12:00 PM ARIA Elapsed Days 12 ARIA Treatment Start Date 09/05/2024 ARIA Treatment Site [id number]_7000 ARIA Dose Given To Date (cGy) 2,250 ARIA Session Dosage Given (cGy) 250 ARIA Plan ID PROSTATE_L NS ARIA Fractions Treated 9 ARIA Prescribed Dose Per Fraction (cGy) 250 ARIA Prescribed Total Dose (cGy) 7,000 ARIA 09/17/2024 1:16 PM FLOORWORKER DISTRIBUTOR us Not In File Miscellaneous RADIATION ONCOLOGY ORD ERABLES Final Result Performing Organization Address [facility] Co de Phone Number ARIA * RAD ONC ARIA SESSION SUMMARY (09/14/2024 1:12 PM FLOORWORKER DISTRIBUTOR) Course Name C1_PROSTAT E_2023 ARIA Course Plan Date 08/20/2024 12:00 PM ARIA Elapsed Days 9 ARIA Treatment Start Date 09/05/2024 ARIA Treatment Site [id number]_7000 ARIA Dose Given To Date (cGy) 2,000 ARIA Session Dosage Given (cGy) 250 ARIA Plan ID PROSTATE_L NS ARIA Fractions Treated 8 ARIA Prescribed Dose Per Fraction (cGy) 250 ARIA Prescribed Total Dose (cGy) 7,000 ARIA 09/14/2024 1:12 PM FLOORWORKER DISTRIBUTOR us Not In File Miscellaneous RADIATION ONCOLOGY ORD ERABLES Final Result ARIA * RAD ONC ARIA SESSION SUMMARY (09/13/2024 1:23 PM FLOORWORKER DISTRIBUTOR) Course Name [email or web address]_PROSTAT ARIA Course Plan Date 08/20/2024 12:00 PM ARIA Elapsed Days 8 ARIA Treatment Start Date 09/05/2024 ARIA Treatment Site [id number]_7000 ARIA Dose Given To Date (cGy) 1,750 ARIA Session Dosage Given (cGy) 250 ARIA Plan ID PROSTATE_L NS ARIA Fractions Treated 7 ARIA Prescribed Dose Per Fraction (cGy) 250 ARIA Prescribed Total Dose (cGy) 7,000 ARIA 09/13/2024 1:23 PM FLOORWORKER DISTRIBUTOR us Not In File Miscellaneous RADIATION ONCOLOGY ORD ERABLES Final Result Performing Organization Address City/[facility] Co de Phone Number ARIA * RAD ONC ARIA SESSION SUMMARY (09/12/2024 1:16 PM FLOORWORKER DISTRIBUTOR) Course Name [email or web address]_PROSTAT ARIA Course Plan Date 08/20/2024 12:00 PM ARIA Elapsed Days 7 ARIA Treatment Start Date 09/05/2024 ARIA Treatment Site [id number]_7000 ARIA Dose Given To Date (cGy) 1,500 ARIA Session Dosage Given (cGy) 250 ARIA Plan ID PROSTATE_L NS ARIA Fractions Treated 6 ARIA Prescribed Dose Per Fraction (cGy) 250 ARIA Prescribed Total Dose (cGy) 7,000 ARIA 09/12/2024 1:16 PM FLOORWORKER DISTRIBUTOR us Not In File Miscellaneous RADIATION ONCOLOGY ORD ERABLES Final Result ARIA * RAD ONC ARIA SESSION SUMMARY (09/11/2024 1:16 PM FLOORWORKER DISTRIBUTOR) Course Name [email or web address]_PROSTAT ARIA Course Plan Date 08/20/2024 12:00 PM ARIA Elapsed Days 6 ARIA Treatment Start Date 09/05/2024 ARIA Treatment Site [id number]_7000 ARIA Dose Given To Date (cGy) 1,250 ARIA Session Dosage Given (cGy) 250 ARIA Plan ID PROSTATE_L NS ARIA Fractions Treated 5 ARIA Prescribed Dose Per Fraction (cGy) 250 ARIA Prescribed Total Dose (cGy) 7,000 ARIA 09/11/2024 1:16 PM FLOORWORKER DISTRIBUTOR us Not In File Miscellaneous RADIATION ONCOLOGY ORD ERABLES Final Result Performing Organization Address [facility]/ZIP Co de Phone Number ARIKay * RAD ONC ARIA SESSION SUMMARY (09/10/2024 1:15 PM FLOORWORKER DISTRIBUTOR) Course Name C1_PROSTAT E_2023 ARIA Course Plan Date 08/20/2024 12:00 PM ARIA Elapsed Days 5 ARIA Treatment Start Date 09/05/2024 ARIA Treatment Site [id number]_7000 ARIA Dose Given To Date (cGy) 1,000 ARIA Session Dosage Given (cGy) 250 ARIA Plan ID PROSTATE_L NS ARIA Fractions Treated 4 ARIA Prescribed Dose Per Fraction (cGy) 250 ARIA Prescribed Total Dose (cGy) 7,000 ARIA 09/10/2024 1:15 PM FLOORWORKER DISTRIBUTOR us Not In File Miscellaneous RADIATION ONCOLOGY ORD ERABLES Final Result Performing Organization Address [facility] de Phone Number ARIA * RAD ONC ARIA SESSION SUMMARY (09/07/2024 1:17 PM FLOORWORKER DISTRIBUTOR) Course Name C1_PROSTAT E_2023 ARIA Course Plan Date 08/20/2024 12:00 PM ARIA Elapsed Days 2 ARIA Treatment Start Date 09/05/2024 ARIA Treatment Site [id number]_7000 ARIA Dose Given To Date (cGy) 750 ARIA Session Dosage Given (cGy) 250 ARIA Plan ID PROSTATE_L NS ARIA Fractions Treated 3 ARIA Prescribed Dose Per Fraction (cGy) 250 ARIA Prescribed Total Dose (cGy) 7,000 ARIA 09/07/2024 1:17 PM FLOORWORKER DISTRIBUTOR us Not In File Miscellaneous RADIATION ONCOLOGY ORD ERABLES Final Result ARIA * RAD ONC ARIA SESSION SUMMARY (09/06/2024 1:12 PM FLOORWORKER DISTRIBUTOR) Course Name C1_PROSTAT E ARIA Course Plan Date 08/20/2024 12:00 PM ARIA Elapsed Days 1 ARIA Treatment Start Date 09/05/2024 ARIA Treatment Site [id number]_7000 ARIA Dose Given To Date (cGy) 500 ARIA Session Dosage Given (cGy) 250 ARIA Plan ID PROSTATE_L NS ARIA Fractions Treated 2 ARIA Prescribed Dose Per Fraction (cGy) 250 ARIA Prescribed Total Dose (cGy) 7,000 ARIA 09/06/2024 1:12 PM FLOORWORKER DISTRIBUTOR us Not In File Miscellaneous RADIATION ONCOLOGY ORD ERABLES Final Result Performing Organization Address [facility] Co de Phone Number TYRONE * RAD ONC ARIA SESSION SUMMARY (09/05/2024 1:23 PM FLOORWORKER DISTRIBUTOR) Course Name C1_PROSTAT ARIA Course Plan Date 08/20/2024 12:00 PM ARIA Elapsed Days 0 ARIA Treatment Start Date 09/05/2024 ARIA Treatment Site [id number]_7000 ARIA Dose Given To Date (cGy) 250 ARIA Session Dosage Given (cGy) 250 ARIA Plan ID PROSTATE_L NS ARIA Fractions Treated 1 ARIA Prescribed Dose Per Fraction (cGy) 250 ARIA Prescribed Total Dose (cGy) 7,000 ARIA 09/05/2024 1:23 PM FLOORWORKER DISTRIBUTOR us Not In File Miscellaneous RADIATION ONCOLOGY ORD ERABLES Final Result ARIA * Urinalysis reflex to microscopic and culture Urine, clean voided (08/03/2024 11:39 AM FLOORWORKER DISTRIBUTOR) Color, ur Straw Yellow Clarity, ur Clear [...] tendency for uric acid stone formation. Source: [facility] [employer] Current Interpretive Data was last revised on [...] CERNER Urine, clean voided 08/03/2024 11:39 AM FLOORWORKER DISTRIBUTOR 08/03/2024 3:00 PM FLOORWORKER DISTRIBUTOR us Harman Morales MD LAB MICROBIOLOGY - GENERAL ORD ERABLES Final Result [facility] [address] [address] Department [place] [address] * MRI Pelvis W WO Contrast (07/02/2024 [...] of prostate biopsy on 04/30/2024 with a [place] score of 7. ??correlated with recent clinic [...] D: ??07/04/2024 1:17 PM T: Report ID: [id number] Reading Location: ??[id number] Procedure Note Koffi Cormier, DO - 07/04/2024 [...] There are multiple small nodules of varying [id number] with T2 hypointense rims as seen with [...] signed by Koffi HARRIS T: Report ID: [id number] Reading Location: [place] [address] us Harman Morales MD IM MRI PROCEDURES [...] Final Result Performing Organization Address City/State/ZIP [place] Phone Number [place] [address] [address] Department [place] [address] from Last 3 Months or Most Recently Relevant to Health Maintenance Insurance [employer] MEDICARE PPO MEDICARE FOR LIFE FOR LIFE [employer] CHOICE MEDICARE PPO Care Teams Spa Experience Coordinator Relationship Specialty Start Date End Date Corey Angel MD [address] [employer] MEDICINE [place], [place] [id number] PCP - General Internal Medicine 06/18/21 Clem Thomson MD [address] [facility] [address] [place] [address] Referring Physician Urology 06/14/24 Harman Morales MD [facility] [address] [place], [place] [id number] Radiation Oncologist Radiation Oncology 06/22/24 James Robert DO [address] [facility] MEDICAL ONCOLOGY, [facility] [address] [place], [place] [address] Medical Oncologist/Biology Specialist Hematology and Oncology 07/12/24
--- OUTSIDE RECORDS SUMMARY | 2024-09-30 12:38 | XMS_ITS | Encounter Summary ---
Author Organization [facility] Healthcare Address [address] [place] [address] Care Team Providers Care Sales Counselor Name Role Phone Corey Angel MD Primary Care Provider [phone] Clem Thomson MD Unavailable [phone] Harman Morales MD Unavailable [phone] James Robert DO Unavailable Encounter Details [...] file Legal Sex Male 2:49 AM COMMUNITY ENGAGEMENT COORDINATOR Gender Identity Male 05/22/2018 10:57 AM CDT Sexual Orientation Straight 11/03/2020 7: 01 PM COMMUNITY ENGAGEMENT COORDINATOR Occupation Industry Job Start Date Job End Date working Not on file Not on file Not on file documented as of this encounter Plan of Treatment Not on file documented as of this encounter Procedures Procedure Name Priority Date/Time Associated Diagnosis Comments RAD ONC ARIA SESSION SUMMARY 09/21/2024 1:09 PM COMMUNITY ENGAGEMENT COORDINATOR documented in this encounter Results * RAD ONC ARIA SESSION SUMMARY (09/21/2024 1:09 PM COMMUNITY ENGAGEMENT COORDINATOR) Course Name C1_PROSTAT E_2023 ARIA Course Plan [...] (cGy) 7,000 ARIA 09/21/2024 1:09 PM COMMUNITY ENGAGEMENT COORDINATOR us Not In File Miscellaneous RADIATION ONCOLOGY ORD ERABLES Final Result ARIA documented in this encounter Visit Diagnoses Not on filedocumented in this encounter Care Teams Sales Counselor Relationship Specialty Start Date End Date Corey Angel MD [address] [facility] [address] [place] [address] PCP - General Internal Medicine 06/18/21 Clem Thomson MD [address] [facility] [address] [place] [address] Referring Physician Urology 06/14/24 Harman Morales MD [address] [facility] [address] [place] [address] Radiation Oncologist Radiation Oncology 06/22/24 James Robert DO [address] [place] [address] MEDICAL ONCOLOGY, [address] [address] Medical Oncologist/Aviation Maintenance Instructor Hematology and Oncology 07/12/24 documented as of this encounter
--- OUTSIDE RECORDS SUMMARY | 2024-09-30 12:39 | XMS_ITS | Encounter Summary ---
Author Organization [facility] Healthcare Address [address] [place] [address] Care Team Providers Care Project Geologist Name Role Phone Corey Angel MD Primary Care Provider [phone] Clem Thomson MD Unavailable Harman Morales MD Unavailable [phone] James Robert DO Unavailable [phone] Encounter Details Date Type Department Care Team (Late st Contact Info) Description 09/05/2024 1:15 PM AREA PLANT MANAGER Treatment [facility] Medical Office Building 2 Radiation Oncology [address] [place] [address] Harman Morales MD [address] [place] [address] Social History Tobacco Use Types Packs/Day [...] on file Legal Sex Male 2:49 AM AREA PLANT MANAGER Gender Identity Male 05/22/2018 10:57 AM CDT Sexual Orientation Straight 11/03/2020 7: 01 PM AREA PLANT MANAGER Occupation Industry Job Start Date Job End Date working Not on file Not on file Not on file documented as of this encounter Plan of Treatment Not on file documented as of this encounter Visit Diagnoses Not on filedocumented in this encounter Care Teams Project Geologist Relationship Specialty Start Date End Date Corey Angel MD 6812 [facility] [address] INTERNAL MEDICINE [place], [place] [id number] PCP - General Internal Medicine 06/18/21 Clem Thomson MD 4921 [facility] [address] [place] [address] Referring Physician Urology 06/14/24 Harman Morales MD [address] [place] [address] 160 [place], [place] [id number] Radiation Oncologist Radiation Oncology 06/22/24 James Robert DO 1418 [facility] MEDICAL ONCOLOGY, [facility] 180 [place], [place] [address] Medical Oncologist/Tariff Counsel Hematology and Oncology 07/12/24 documented as of this encounter
--- OUTSIDE RECORDS SUMMARY | 2024-09-30 12:39 | XMS_ITS | Encounter Summary ---
Author Organization [facility] Healthcare Address [address] [place] [address] Care Team Providers Care In Store Demonstrator Name Role Phone Corey Angel MD Primary Care Provider [phone] Clem Thomson MD Unavailable Harman Morales MD Unavailable [phone] James Robert DO Unavailable [phone] Encounter Details Date Type Department Care Team (Late st Contact Info) Description 09/11/2024 1:00 PM CUTTER OPERATOR BRICK Treatment [facility] Medical Office Building 2 Radiation Oncology [address] [place] [address] Social History Tobacco Use Types Packs/Day [...] on file Legal Sex Male 2:49 AM CUTTER OPERATOR BRICK Gender Identity Male 05/22/2018 10:57 AM CDT Sexual Orientation Straight 11/03/2020 7: 01 PM CUTTER OPERATOR BRICK Occupation Industry Job Start Date Job End Date working Not on file Not on file Not on file documented as of this encounter Plan of Treatment Not on file documented as of this encounter Visit Diagnoses Not on filedocumented in this encounter Care Teams In Store Demonstrator Relationship Specialty Start Date End Date Corey Angel MD 6812 [facility] [address] [place] [address] PCP - General Internal Medicine 06/18/21 Clem Thomson MD 4921 [facility] 11[address] [facility] [place] [address] Referring Physician Urology 06/14/24 Harman Morales MD [address] [place] [address] 160 [place] [address] Radiation Oncologist Radiation Oncology 06/22/24 James Robert DO [address] [place] [address] MEDICAL ONCOLOGY, [facility] 180 [place] [address] Medical Oncologist/Computer Programming Supervisor Hematology and Oncology 07/12/24 documented as of this encounter
--- OUTSIDE RECORDS SUMMARY | 2024-09-30 12:39 | XMS_ITS | Encounter Summary ---
Author Organization [facility] Healthcare Address [address] [place] [address] Care Team Providers Care Paint Crew Supervisor Name Role Phone Corey Angel MD Primary Care Provider [phone] Clem Thomson MD Unavailable [phone] Harman Morales MD Unavailable [phone] James Robert DO Unavailable [phone] Encounter Details Date Type Department Care Team [...] on file Legal Sex Male 2:49 AM ADMINISTRATIVE LIAISON Gender Identity Male 05/22/2018 10:57 AM CDT Sexual Orientation Straight 11/03/2020 7: 01 PM ADMINISTRATIVE LIAISON Occupation Industry Job Start Date Job End Date working Not on file Not on file Not on file documented as of this encounter Plan of Treatment Not on file documented as of this encounter Procedures Procedure Name Priority Date/Time Associated Diagnosis Comments RAD ONC ARIA SESSION SUMMARY 09/07/2024 1:17 PM ADMINISTRATIVE LIAISON documented in this encounter Results * RAD ONC ARIA SESSION SUMMARY (09/07/2024 1:17 PM ADMINISTRATIVE LIAISON) Course Name C1_PROSTAT E_2023 ARIA Course [...] Dose (cGy) 7,000 ARIA 09/07/2024 1:17 PM ADMINISTRATIVE LIAISON us Not In File Miscellaneous RADIATION ONCOLOGY ORD ERABLES Final Result ARIA documented in this encounter Visit Diagnoses Not on filedocumented in this encounter Care Teams Paint Crew Supervisor Relationship Specialty Start Date End Date Corey Angel MD [address] [facility] [address] [place] [address] PCP - General Internal Medicine 06/18/21 Clem Thomson MD 4921 [facility] [address] [place] [address] Referring Physician Urology 06/14/24 Harman Morales MD 1418 [facility] 160 [place] [address] Radiation Oncologist Radiation Oncology 06/22/24 James Robert DO [address] [place] [address] MEDICAL ONCOLOGY, [address] [address] Medical Oncologist/Teacher Advisor Hematology and Oncology 07/12/24 documented as of this encounter
--- OUTSIDE RECORDS SUMMARY | 2024-09-30 12:39 | XMS_ITS | Encounter Summary ---
Author Organization [facility] Healthcare Address [address] [place] [address] Care Team Providers Care Boxing Inspector Name Role Phone Corey Angel MD Primary Care Provider Clem Thomson MD Unavailable Harman Morales MD Unavailable [phone] James Robert DO Unavailable [phone] Reason for Visit * Reason Comments OTV Encounter Details Date Type Department Care Team (Late st Contact Info) Description 09/07/2024 OTV [facility] Medical Office Building 2 Radiation Oncology [address] [place] [address] Harman Morales MD [address] [place] [address] Social History Tobacco Use Types Packs/Day [...] on file Legal Sex Male 2:49 AM BOAT MOTOR MECHANIC Gender Identity Male 05/22/2018 10:57 AM CDT Sexual Orientation Straight 11/03/2020 7: 01 PM BOAT MOTOR MECHANIC Occupation Industry Job Start Date Job End Date working Not on file Not on file Not on file documented as of this encounter Last Filed Vital Signs Vital Sign Reading Time Taken Comments Blood Pressure 138/94 09/07/2024 1:27 PM BOAT MOTOR MECHANIC Pulse 57 09/07/2024 1:27 PM BOAT MOTOR MECHANIC Temperature - - Respiratory Rate - - Oxygen Saturation 98% 09/07/2024 1:27 PM BOAT MOTOR MECHANIC Inhaled Oxygen Concentration - - Weight 119.7 kg (264 lb) 09/07/2024 1:27 PM BOAT MOTOR MECHANIC Height - - Body Mass Index 37.34 08/09/2024 3:04 PM BOAT MOTOR MECHANIC documented in this encounter Progress Notes [...] pain that requires changes in pain management. MOTOR MECHANIC documented in this encounter Plan of Treatment Not on file documented as of this encounter Visit Diagnoses Not on filedocumented in this encounter Care Teams Boxing Inspector Relationship Specialty Start Date End Date Corey Angel MD 6812 [facility] [address] [place] [address] PCP - General Internal Medicine 06/18/21 Clem Thomson MD [address] [place] [address] Referring Physician Urology 06/14/24 Harman Morales MD [address] [place] [address] 160 [place] [address] Radiation Oncologist Radiation Oncology 06/22/24 Jaems Robert DO [address] [place] [address] MEDICAL ONCOLOGY, [facility] 180 [place] [address] Medical Oncologist/Solutions Sales Consultant Hematology and Oncology 07/12/24 documented as of this encounter
--- OUTSIDE RECORDS SUMMARY | 2024-09-30 12:39 | XMS_ITS | Encounter Summary ---
Author Organization [facility] Healthcare Address [address] [place] [address] Care Team Providers Care Betting Clerks Name Role Phone Corey Angel MD Primary Care Provider [phone] Clem Thomson MD Unavailable Harman Morales MD Unavailable [phone] James Robert DO Unavailable [phone] Encounter Details Date Type Department Care Team [...] on file Legal Sex Male 2:49 AM DIESEL TRAILER MECHANIC Gender Identity Male 05/22/2018 10:57 AM CDT Sexual Orientation Straight 11/03/2020 7: 01 PM DIESEL TRAILER MECHANIC Occupation Industry Job Start Date Job End Date working Not on file Not on file Not on file documented as of this encounter Plan of Treatment Not on file documented as of this encounter Procedures Procedure Name Priority Date/Time Associated Diagnosis Comments RAD ONC ARIA SESSION SUMMARY 09/11/2024 1:16 PM DIESEL TRAILER MECHANIC documented in this encounter Results * RAD ONC ARIA SESSION SUMMARY (09/11/2024 1:16 PM DIESEL TRAILER MECHANIC) Course Name C1_PROSTAT E_2023 ARIA Course [...] Dose (cGy) 7,000 ARIA 09/11/2024 1:16 PM DIESEL TRAILER MECHANIC us Not In File Miscellaneous RADIATION ONCOLOGY ORD ERABLES Final Result ARIA documented in this encounter Visit Diagnoses Not on filedocumented in this encounter Care Teams Betting Clerks Relationship Specialty Start Date End Date Corey Angel MD 6812 [facility] [address] [place] [address] PCP - General Internal Medicine 06/18/21 Clem Thomson MD 4921 [facility] [address] [place] [address] Referring Physician Urology 06/14/24 Harman Morales MD 1418 [facility] 160 [place] [address] Radiation Oncologist Radiation Oncology 06/22/24 James Robert DO [address] [place] [address] MEDICAL ONCOLOGY, [address] [address] Medical Oncologist/Truck Spotter Hematology and Oncology 07/12/24 documented as of this encounter
--- OUTSIDE RECORDS SUMMARY | 2024-09-30 12:39 | XMS_ITS | Encounter Summary ---
Author Organization [facility] Healthcare Address [address] [place] [address] Care Team Providers Care Director Equipment Name Role Phone Corey Angel MD Primary Care Provider [phone] Clem Thomson MD Unavailable Harman Morales MD Unavailable [phone] James Robert DO Unavailable [phone] Encounter Details Date Type Department Care Team (Late st Contact Info) Description 09/13/2024 1:00 PM AIRCRAFT SHEET METAL MECHANIC Treatment [facility] Medical Office Building 2 Radiation Oncology [address] [place] [address] Social History Tobacco Use Types Packs/Day [...] file Legal Sex Male 2:49 AM AIRCRAFT SHEET METAL MECHANIC Gender Identity Male 05/22/2018 10:57 AM CDT Sexual Orientation Straight 11/03/2020 7: 01 PM AIRCRAFT SHEET METAL MECHANIC Occupation Industry Job Start Date Job End Date working Not on file Not on file Not on file documented as of this encounter Plan of Treatment Not on file documented as of this encounter Visit Diagnoses Not on filedocumented in this encounter Care Teams Director Equipment Relationship Specialty Start Date End Date Corey Angel MD 6812 [facility] [address] [place] [address] PCP - General Internal Medicine 06/18/21 Clem Thomson MD 4921 [facility] 11C [facility] [place] [address] Referring Physician Urology 06/14/24 Harman Morales MD [address] [place] [address] 160 [place] [address] Radiation Oncologist Radiation Oncology 06/22/24 James Robert DO [address] [place] [address] MEDICAL ONCOLOGY, [facility] 180 [place] [address] Medical Oncologist/Stacker Attendant Hematology and Oncology 07/12/24 documented as of this encounter
--- OUTSIDE RECORDS SUMMARY | 2024-09-30 12:39 | XMS_ITS | Encounter Summary ---
Author Organization [facility] Healthcare Address [address] [place] [address] Care Team Providers Care Development And Planning Engineer Name Role Phone Corey Angel MD Primary Care Provider [phone] Clem Thomson MD Unavailable Harman Morales MD Unavailable [phone] James Robert DO Unavailable [phone] Encounter Details Date Type Department Care Team (Late st Contact Info) Description 09/10/2024 1:00 PM TRANSVERSE ABDOMINAL MUSCLE NURSE Treatment [facility] Medical Office Building 2 Radiation Oncology [address] [place] [address] Social History Tobacco Use Types Packs/Day [...] on file Legal Sex Male 2:49 AM TRANSVERSE ABDOMINAL MUSCLE NURSE Gender Identity Male 05/22/2018 10:57 AM CDT Sexual Orientation Straight 11/03/2020 7: 01 PM TRANSVERSE ABDOMINAL MUSCLE NURSE Occupation Industry Job Start Date Job End Date working Not on file Not on file Not on file documented as of this encounter Plan of Treatment Not on file documented as of this encounter Visit Diagnoses Not on filedocumented in this encounter Care Teams Development And Planning Engineer Relationship Specialty Start Date End Date Corey Angel MD 6812 [facility] [address] [place] [address] PCP - General Internal Medicine 06/18/21 Clem Thomson MD [address] [facility] 11C [facility] [place] [address] Referring Physician Urology 06/14/24 Harman Morales MD [address] [place] [address] 160 [place] [address] Radiation Oncologist Radiation Oncology 06/22/24 James Robert DO [address] [place] [address] MEDICAL ONCOLOGY, [facility] 180 [place] [address] Medical Oncologist/[place]aport Planning Manager Hematology and Oncology 07/12/24 documented as of this encounter
--- OUTSIDE RECORDS SUMMARY | 2024-09-30 12:39 | XMS_ITS | Encounter Summary ---
Author Organization [facility] Healthcare Address [address] [place] [address] Care Team Providers Care Industrial Electrical Engineer Name Role Phone Corey Angel MD Primary Care Provider [phone] Clem Thomson MD Unavailable [phone] Harman Morales MD Unavailable [phone] James Robert DO Unavailable Encounter Details [...] file Legal Sex Male 2:49 AM CLINICAL STAFF ANESTHESIOLOGIST Gender Identity Male 05/22/2018 10:57 AM CDT Sexual Orientation Straight 11/03/2020 7: 01 PM CLINICAL STAFF ANESTHESIOLOGIST Occupation Industry Job Start Date Job End Date working Not on file Not on file Not on file documented as of this encounter Plan of Treatment Not on file documented as of this encounter Procedures Procedure Name Priority Date/Time Associated Diagnosis Comments RAD ONC ARIA SESSION SUMMARY 09/05/2024 1:23 PM CLINICAL STAFF ANESTHESIOLOGIST documented in this encounter Results * RAD ONC ARIA SESSION SUMMARY (09/05/2024 1:23 PM CLINICAL STAFF ANESTHESIOLOGIST) Course Name C1_PROSTAT E_2023 ARIA Course Plan Date 08/20/2024 12:00 PM ARIA Elapsed Days 0 ARIA Treatment Start Date 09/05/2024 ARIA Treatment Site [id number] ARIA Dose Given To Date (cGy) 250 ARIA Session Dosage Given (cGy) 250 ARIA Plan ID PROSTATE_L NS ARIA Fractions Treated 1 ARIA Prescribed Dose Per Fraction (cGy) 250 ARIA Prescribed Total Dose (cGy) 7,000 ARIA 09/05/2024 1:23 PM CLINICAL STAFF ANESTHESIOLOGIST us Not In File Miscellaneous RADIATION ONCOLOGY ORD ERABLES Final Result ARIA documented in this encounter Visit Diagnoses Not on filedocumented in this encounter Care Teams Industrial Electrical Engineer Relationship Specialty Start Date End Date Corey Angel MD 68[address] [facility] [address] [place] [address] PCP - General Internal Medicine 06/18/21 Clem Thomson MD 4921 [facility] [address] [place] [address] Referring Physician Urology 06/14/24 Harman Morales MD 1418 [facility] 160 [place] [address] Radiation Oncologist Radiation Oncology 06/22/24 James Robert DO [address] [place] [address] MEDICAL ONCOLOGY, [address] [address] Medical Oncologist/Petrology Teacher Hematology and Oncology 07/12/24 documented as of this encounter
--- OUTSIDE RECORDS SUMMARY | 2024-09-30 12:39 | XMS_ITS | Encounter Summary ---
Author Organization [facility] Healthcare Address [address] [place] [address] Care Team Providers Care Financial Foundations Representative Name Role Phone Corey Angel MD Primary Care Provider [phone] Clem Thomson MD Unavailable Harman Morales MD Unavailable [phone] James Robert DO Unavailable [phone] Encounter Details Date Type Department Care Team [...] on file Legal Sex Male 2:49 AM SHIFT SUPERINTENDENT CAUSTIC CRESYLATE Gender Identity Male 05/22/2018 10:57 AM CDT Sexual Orientation Straight 11/03/2020 7: 01 PM SHIFT SUPERINTENDENT CAUSTIC CRESYLATE Occupation Industry Job Start Date Job End Date working Not on file Not on file Not on file documented as of this encounter Plan of Treatment Not on file documented as of this encounter Procedures Procedure Name Priority Date/Time Associated Diagnosis Comments RAD ONC ARIA SESSION SUMMARY 09/12/2024 1:16 PM SHIFT SUPERINTENDENT CAUSTIC CRESYLATE documented in this encounter Results * RAD ONC ARIA SESSION SUMMARY (09/12/2024 1:16 PM SHIFT SUPERINTENDENT CAUSTIC CRESYLATE) Course Name C1_PROSTAT E_2023 ARIA Course Plan Date 08/20/2024 12:00 PM ARIA Elapsed Days 7 ARIA Treatment Start Date 09/05/2024 ARIA Treatment Site [id number] ARIA Dose Given To Date (cGy) 1,500 ARIA Session Dosage Given (cGy) 250 ARIA Plan ID PROSTATE_L NS ARIA Fractions Treated 6 ARIA Prescribed Dose Per Fraction (cGy) 250 ARIA Prescribed Total Dose (cGy) 7,000 ARIA 09/12/2024 1:16 PM SHIFT SUPERINTENDENT CAUSTIC CRESYLATE us Not In File Miscellaneous RADIATION ONCOLOGY ORD ERABLES Final Result ARIA documented in this encounter Visit Diagnoses Not on filedocumented in this encounter Care Teams Financial Foundations Representative Relationship Specialty Start Date End Date Corey Angel MD 6812 [facility] [address] [place] [address] PCP - General Internal Medicine 06/18/21 Clem Thomson MD 4921 [facility] [address] [place] [address] Referring Physician Urology 06/14/24 Harman Morales MD 1418 [facility] 160 [place] [address] Radiation Oncologist Radiation Oncology 06/22/24 James Robert DO [address] [place] [address] MEDICAL ONCOLOGY, [address] [address] Medical Oncologist/Corrective Therapist Hematology and Oncology 07/12/24 documented as of this encounter
--- OUTSIDE RECORDS SUMMARY | 2024-09-30 12:39 | XMS_ITS | Encounter Summary ---
Author Organization [facility] Healthcare Address [address] [place] [address] Care Team Providers Care World Travel Counselor Name Role Phone Corey Angel MD Primary Care Provider [phone] Clem Thomson MD Unavailable Harman Morales MD Unavailable [phone] James Robert DO Unavailable [phone] Encounter Details Date Type Department Care Team [...] on file Legal Sex Male 2:49 AM CHIEF ENGINEER Gender Identity Male 05/22/2018 10:57 AM CDT Sexual Orientation Straight 11/03/2020 7: 01 PM CHIEF ENGINEER Occupation Industry Job Start Date Job End Date working Not on file Not on file Not on file documented as of this encounter Plan of Treatment Not on file documented as of this encounter Procedures Procedure Name Priority Date/Time Associated Diagnosis Comments RAD ONC ARIA SESSION SUMMARY 09/06/2024 1:12 PM CHIEF ENGINEER documented in this encounter Results * RAD ONC ARIA SESSION SUMMARY (09/06/2024 1:12 PM CHIEF ENGINEER) Course Name C1_PROSTAT E_2023 ARIA Course Plan Date 08/20/2024 12:00 PM ARIA Elapsed Days 1 ARIA Treatment Start Date 09/05/2024 ARIA Treatment Site [id number] ARIA Dose Given To Date (cGy) 500 ARIA Session Dosage Given (cGy) 250 ARIA Plan ID PROSTATE_L NS ARIA Fractions Treated 2 ARIA Prescribed Dose Per Fraction (cGy) 250 ARIA Prescribed Total Dose (cGy) 7,000 ARIA 09/06/2024 1:12 PM CHIEF ENGINEER us Not In File Miscellaneous RADIATION ONCOLOGY ORD ERABLES Final Result ARIA documented in this encounter Visit Diagnoses Not on filedocumented in this encounter Care Teams World Travel Counselor Relationship Specialty Start Date End Date Corey Angel MD 6812 [facility] [address] [place] [address] PCP - General Internal Medicine 06/18/21 Clem Thomson MD 4921 [facility] [address] [place] [address] Referring Physician Urology 06/14/24 Harman Morales MD 1418 [facility] 160 [place] [address] Radiation Oncologist Radiation Oncology 06/22/24 James Robert DO [address] [place] [address] MEDICAL ONCOLOGY, [address] [address] Medical Oncologist/Siphon Operator Hematology and Oncology 07/12/24 documented as of this encounter
--- OUTSIDE RECORDS SUMMARY | 2024-09-30 12:39 | XMS_ITS | Encounter Summary ---
Author Organization [facility] Healthcare Address [address] [place] [address] Care Team Providers Care Grip Boss Name Role Phone Corey Angel MD Primary Care Provider Clem Thomson MD Unavailable Harman Morales MD Unavailable [phone] James Robert DO Unavailable [phone] Encounter Details Date Type Department Care Team (Late st Contact Info) Description 09/05/2024 1:00 PM IMAGERY INTELLIGENCE Treatment [facility] Medical Office Building 2 Radiation Oncology [address] [place] [address] Harman Morales MD [address] [place] [address] Social History Tobacco Use Types Packs/Day [...] on file Legal Sex Male 2:49 AM IMAGERY INTELLIGENCE Gender Identity Male 05/22/2018 10:57 AM CDT Sexual Orientation Straight 11/03/2020 7: 01 PM IMAGERY INTELLIGENCE Occupation Industry Job Start Date Job End Date working Not on file Not on file Not on file documented as of this encounter Plan of Treatment Not on file documented as of this encounter Visit Diagnoses Not on filedocumented in this encounter Care Teams Grip Boss Relationship Specialty Start Date End Date Corey Angel MD 6812 [facility] [address] INTERNAL MEDICINE [place], [place] [address] PCP - General Internal Medicine 06/18/21 Clem Thomson MD 4921 [facility] [address] [place] [address] Referring Physician Urology 06/14/24 Harman Morales MD [address] [place] [address] 160 [place], [place] [address] Radiation Oncologist Radiation Oncology 06/22/24 James Robert DO 1418 [facility] MEDICAL ONCOLOGY, [facility] 180 [place], [place] [address] Medical Oncologist/Assisted Living Associate Hematology and Oncology 07/12/24 documented as of this encounter
--- OUTSIDE RECORDS SUMMARY | 2024-09-30 12:39 | XMS_ITS | Encounter Summary ---
Author Organization [facility] Healthcare Address [address] [place] [address] Care Team Providers Care Shipbuilding Draftsperson Name Role Phone Corey Angel MD Primary Care Provider [phone] Clem Thomson MD Unavailable Harman Morales MD Unavailable [phone] James Robert DO Unavailable [phone] Encounter Details Date Type Department Care Team [...] on file Legal Sex Male 2:49 AM TUNNEL KILN OPERATOR Gender Identity Male 05/22/2018 10:57 AM CDT Sexual Orientation Straight 11/03/2020 7: 01 PM TUNNEL KILN OPERATOR Occupation Industry Job Start Date Job End Date working Not on file Not on file Not on file documented as of this encounter Plan of Treatment Not on file documented as of this encounter Procedures Procedure Name Priority Date/Time Associated Diagnosis Comments RAD ONC ARIA SESSION SUMMARY 09/14/2024 1:12 PM TUNNEL KILN OPERATOR documented in this encounter Results * RAD ONC ARIA SESSION SUMMARY (09/14/2024 1:12 PM TUNNEL KILN OPERATOR) Course Name C1_PROSTAT E_2023 ARIA Course [...] Dose (cGy) 7,000 ARIA 09/14/2024 1:12 PM TUNNEL KILN OPERATOR us Not In File Miscellaneous RADIATION ONCOLOGY ORD ERABLES Final Result ARIA documented in this encounter Visit Diagnoses Not on filedocumented in this encounter Care Teams Shipbuilding Draftsperson Relationship Specialty Start Date End Date Corey Angel MD 6812 [facility] [address] [place] [address] [place] [address] PCP - General Internal Medicine 06/18/21 Clem Thomson MD 4921 [facility] 11C [place] [address] Referring Physician Urology 06/14/24 Harman Morales MD 1418 [facility] 160 [place] [address] Radiation Oncologist Radiation Oncology 06/22/24 James Robert DO [address] [place] [address] MEDICAL ONCOLOGY, [address] [address] Medical Oncologist/Food Preparation Supervisor Hematology and Oncology 07/12/24 documented as of this encounter
--- OUTSIDE RECORDS SUMMARY | 2024-09-30 12:39 | XMS_ITS | Encounter Summary ---
Author Organization [facility] Healthcare Address [address] [place] [address] Care Team Providers Care Specialized Developer Name Role Phone Corey Angel MD Primary Care Provider Clem Thomson MD Unavailable Harman Morales MD Unavailable [phone] James Robert DO Unavailable [phone] Reason for Visit * Reason Comments Follow-up Encounter Details Date Type Department Care Team (Late st Contact Info) Description 08/20/2024 11:00 AM SPACER TYPE BAR AND SEGMENT Office Visit [facility] Medical Office Building 2 Radiation Oncology [address] [place], [place] [address] Harman Morales MD [address] [place] [address] [id number] Prostate cancer (HCC) (Primary Dx) Social History [...] on file Legal Sex Male 2:49 AM SPACER TYPE BAR AND SEGMENT Gender Identity Male 05/22/2018 10:57 AM CDT Sexual Orientation Straight 11/03/2020 7: 01 PM SPACER TYPE BAR AND SEGMENT Occupation Industry Job Start Date Job End Date working Not on file Not on file Not on file documented as of this encounter Last Filed Vital Signs Vital Sign Reading Time Taken Comments Blood Pressure 158/96 08/20/2024 11:05 AM SPACER TYPE BAR AND SEGMENT Pulse 64 08/20/2024 11:05 AM SPACER TYPE BAR AND SEGMENT Temperature - - Respiratory Rate - - Oxygen Saturation 100% 08/20/2024 11:05 AM SPACER TYPE BAR AND SEGMENT Inhaled Oxygen Concentration - - Weight 115.7 kg (255 lb) 08/20/2024 11:05 AM SPACER TYPE BAR AND SEGMENT Height - - Body Mass Index 36.07 08/09/2024 3:04 PM SPACER TYPE BAR AND SEGMENT documented in this encounter Progress Notes * Harman Morales MD - 08/20/2024 11:00 AM CST Radiation Oncologist: Harman Morales MD Primary Care Physician: Corey Angel MD Medical Oncologist: James Robert DO Surgeon: No care steamfitter to display Date of Service: 08/20/2024 RADIATION [...] User Date and Time DIONICIO CANELA RN [[id number]] 08/20/2024 11:01 AM REVIEW OF SYSTEM Except [...] any separately reportable services. Harman Morales MD ER TYPE BAR AND SEGMENT documented in this encounter Nursing Notes * Dionicio Canela, RN - 08/20/2024 11:00 AM CST Oncology Education Educated: Who educated?: Patient Barriers to learning: No barriers identified Welcome binder given: Yes Topics addressed: Appointments, Contact info/When to call, Diarrhea, Fatigue, Oncology treatment information, and Support services and resources Learning Methods: Explanation and Handout Response to Learning: Verbalized understanding ER TYPE BAR AND SEGMENT documented in this encounter Plan of Treatment Not on file documented as of this encounter Visit Diagnoses Diagnosis Prostate cancer (HCC)- Primary Malignant neoplasm of prostate documented in this encounter Care Teams Specialized Developer Relationship Specialty Start Date End Date Corey Angel MD 6812 [facility] [address] [place] [address] PCP - General Internal Medicine 06/18/21 Clem Thomson MD [address] [address] Referring Physician Urology 06/14/24 Harman Morales MD [facility]8 [facility] 160 [place] [address] Radiation Oncologist Radiation Oncology 06/22/24 James Robert DO 1418 [facility] MEDICAL ONCOLOGY, [facility] 180 [place] [address] Medical Oncologist/Hi Ranger Operator Hematology and Oncology 07/12/24 documented as of this encounter
--- OUTSIDE RECORDS SUMMARY | 2024-09-30 12:39 | XMS_ITS | Encounter Summary ---
Author Organization [facility] Healthcare Address [address] [place] [address] Care Team Providers Care Motor And Generator Assembler Name Role Phone Corey Angel MD Primary Care Provider [phone] Clem Thomson MD Unavailable [phone] Harman Morales MD Unavailable [phone] James Robert DO Unavailable [phone] Reason for Visit * Radiation Therapy (Routine) - Authorized Specialty Diagnoses / Procedures Referred By Contac t Referred To Contact Radiation Oncology Diagnoses Malignant neoplasm of prostate (HCC) Harman Morales MD [address] [place] [address] Phone: tel: fax: [facility] Medical Office Building 2 Radiation Oncology [address] [place] [address] Phone: tel: fax: Referral ID Status Reason Start Date Expiration Date V isits Requested Visits Authorized [id number] Authorized 08/20/2024 11/20/2024 99 99 Encounter Details Date Type Department Care Team (Late st Contact Info) Description 08/20/2024 11:30 AM SEWAGE TREATMENT PLANT OPERATOR Treatment [facility] Medical Office Building 2 Radiation Oncology [address] [place], [place] [address] Harman Morales MD [address] [place] [address] Social History Tobacco Use Types Packs/Day Years [...] on file Legal Sex Male 2:49 AM SEWAGE TREATMENT PLANT OPERATOR Gender Identity Male 05/22/2018 10:57 AM CDT Sexual Orientation Straight 11/03/2020 7: 01 PM SEWAGE TREATMENT PLANT OPERATOR Occupation Industry Job Start Date Job End Date working Not on file Not on file Not on file documented as of this encounter Plan of Treatment Not on file documented as of this encounter Visit Diagnoses Not on filedocumented in this encounter Care Teams Motor And Generator Assembler Relationship Specialty Start Date End Date Corey Angel MD [address] [place] [address] PCP - General Internal Medicine 06/18/21 Clem Thomson MD 4921 [facility] 11C [place] [address] Referring Physician Urology 06/14/24 Harman Morales MD [address] [address] Radiation Oncologist Radiation Oncology 06/22/24 James Robert DO 1418 [facility] MEDICAL ONCOLOGY, [facility] [address] [place] [address] Medical Oncologist/Software Design Engineer Hematology and Oncology 07/12/24 documented as of this encounter
--- OUTSIDE RECORDS SUMMARY | 2024-09-30 12:39 | XMS_ITS | Encounter Summary ---
Author Organization [facility] Healthcare Address [address] [place] [address] Care Team Providers Care Dub Room Engineer Name Role Phone Corey Angel MD Primary Care Provider [phone] Clem Thomson MD Unavailable Harman Morales MD Unavailable [phone] James Robert DO Unavailable [phone] Reason for Visit * Reason Comments Nutrition Counseling Encounter Details Date Type Department Care Team (Latest Contact Info) Description 09/06/2024 1:15 PM FOREST FIRE WARDEN Clinical Support [facility] Medical Office Building 2 Radiation Oncology [address] [place] [address] Prostate cancer (HCC) (Primary Dx); Elevated [...] file Legal Sex Male 2:49 AM FOREST FIRE WARDEN Gender Identity Male 05/22/2018 10:57 AM CDT Sexual Orientation Straight 11/03/2020 7: 01 PM FOREST FIRE WARDEN Occupation Industry Job Start Date Job End [...] 15.9 oz) Current BMI: 36.07 kg/m?? Abnormal [place] body weight: 74.1 kg (163 lb 7.5 oz) Adjusted ideal body weight: 90.8 kg (200 lb 1.3 oz) Estimated daily nutritional needs: Calories: 6319-1353 (20-25 kcal/kg IBW) Protein: 139g (1.2-1.5gm /kg [...] eds: Suggested the [employer] program at the [facility]. The patient was given my contact information and were encouraged to contact me with any nutritionally related questions or concerns during treatment. . Oneida Todd, MS, RDN, BULK CLERK, LD Oncology Home Care Manager Rn and Registered Dietitian [facility] in [place], [place] [phone] [email or web address] ST FIRE WARDEN documented in this encounter Plan of Treatment Not on file documented as of this encounter Visit Diagnoses Diagnosis Prostate cancer (HCC)- Primary Malignant neoplasm of prostate Elevated PSA Elevated prostate specific antigen (PSA) documented in this encounter Care Teams Dub Room Engineer Relationship Specialty Start Date End Date Corey Angel MD 68[address] [facility] [address] [place] [address] [place] [address] PCP - General Internal Medicine 06/18/21 Clem Thomson MD [address] [place] [address] Referring Physician Urology 06/14/24 Harman Morales MD [address] [place] [id number] Radiation Oncologist Radiation Oncology 06/22/24 James Robert DO [address] [place] [address] MEDICAL ONCOLOGY, [address] [address] Medical Oncologist/Gauge Controller Hematology and Oncology 07/12/24 documented as of this encounter
--- OUTSIDE RECORDS SUMMARY | 2024-09-30 12:39 | XMS_ITS | Encounter Summary ---
Author Organization [facility] Healthcare Address [address] [place] [address] Care Team Providers Care Grocery Department Manager Name Role Phone Corey Angel MD Primary Care Provider [phone] Clem Thomson MD Unavailable Harman Morales MD Unavailable [phone] James Robert DO Unavailable [phone] Encounter Details Date Type Department Care Team (Late st Contact Info) Description 09/03/2024 7:15 PM BULB PLANTER Treatment [facility] Medical Office Building 2 Radiation Oncology [address] [place] [address] Social History Tobacco Use Types Packs/Day [...] on file Legal Sex Male 2:49 AM BULB PLANTER Gender Identity Male 05/22/2018 10:57 AM CDT Sexual Orientation Straight 11/03/2020 7: 01 PM BULB PLANTER Occupation Industry Job Start Date Job End Date working Not on file Not on file Not on file documented as of this encounter Plan of Treatment Not on file documented as of this encounter Visit Diagnoses Not on filedocumented in this encounter Care Teams Grocery Department Manager Relationship Specialty Start Date End Date Corey Angel MD 6812 [facility] [address] INTER[place] [address] PCP - General Internal Medicine 06/18/21 Clem Thomson MD 4921 [facility] 11C [facility] [place] [address] Referring Physician Urology 06/14/24 Harman Morales MD [address] [place] [address] 160 [place] [address] Radiation Oncologist Radiation Oncology 06/22/24 James Robert DO [address] [place] [address] MEDICAL ONCOLOGY, [facility] 180 [place] [address] Medical Oncologist/Toggle Press Folder And Feeder Hematology and Oncology 07/12/24 documented as of this encounter
--- OUTSIDE RECORDS SUMMARY | 2024-09-30 12:39 | XMS_ITS | Encounter Summary ---
Author Organization [facility] Healthcare Address [address] [place] [address] Care Team Providers Care Ear Nose Throat Surgeon Name Role Phone Corey Angel MD Primary Care Provider [phone] Clem Thomson MD Unavailable Harman Morales MD Unavailable [phone] James Robert DO Unavailable [phone] Encounter Details Date Type Department Care Team [...] on file Legal Sex Male 2:49 AM HARBOR POLICE LIEUTENANT Gender Identity Male 05/22/2018 10:57 AM CDT Sexual Orientation Straight 11/03/2020 7: 01 PM HARBOR POLICE LIEUTENANT Occupation Industry Job Start Date Job End Date working Not on file Not on file Not on file documented as of this encounter Plan of Treatment Not on file documented as of this encounter Procedures Procedure Name Priority Date/Time Associated Diagnosis Comments RAD ONC ARIA SESSION SUMMARY 09/13/2024 1:23 PM HARBOR POLICE LIEUTENANT documented in this encounter Results * RAD ONC ARIA SESSION SUMMARY (09/13/2024 1:23 PM HARBOR POLICE LIEUTENANT) Course Name C1_PROSTAT E_2023 ARIA Course Plan Date 08/20/2024 12:00 PM ARIA Elapsed Days 8 ARIA Treatment Start Date 09/05/2024 ARIA Treatment Site [id number] ARIA Dose Given To Date (cGy) 1,750 ARIA Session Dosage Given (cGy) 250 ARIA Plan ID PROSTATE_L NS ARIA Fractions Treated 7 ARIA Prescribed Dose Per Fraction (cGy) 250 ARIA Prescribed Total Dose (cGy) 7,000 ARIA 09/13/2024 1:23 PM HARBOR POLICE LIEUTENANT us Not In File Miscellaneous RADIATION ONCOLOGY ORD ERABLES Final Result ARIA documented in this encounter Visit Diagnoses Not on filedocumented in this encounter Care Teams Ear Nose Throat Surgeon Relationship Specialty Start Date End Date Corey Angel MD 6812 [facility] [address] [place] [address] PCP - General Internal Medicine 06/18/21 Clem Thomson MD 4921 [facility] 11[address] [place] [address] Referring Physician Urology 06/14/24 Harman Morales MD 1418 [facility] 160 [place] [address] Radiation Oncologist Radiation Oncology 06/22/24 James Robert DO [address] [place] [address] MEDICAL ONCOLOGY, [address] [address] Medical Oncologist/Vat Overhauler Hematology and Oncology 07/12/24 documented as of this encounter
--- OUTSIDE RECORDS SUMMARY | 2024-09-30 12:39 | XMS_ITS | Encounter Summary ---
Author Organization [facility] Healthcare Address [address] [place] [address] Care Team Providers Care Director Of Managed Care Name Role Phone Corey Angel MD Primary Care Provider [phone] Clem Thomson MD Unavailable Harman Morales MD Unavailable [phone] James Robert DO Unavailable [phone] Encounter Details Date Type Department Care Team (Late st Contact Info) Description 09/06/2024 1:00 PM PRINTED CIRCUIT BOARD PREASSEMBLER Treatment [facility] Medical Office Building 2 Radiation Oncology [address] [place] [address] Social History Tobacco Use Types Packs/Day [...] on file Legal Sex Male 2:49 AM PRINTED CIRCUIT BOARD PREASSEMBLER Gender Identity Male 05/22/2018 10:57 AM CDT Sexual Orientation Straight 11/03/2020 7: 01 PM PRINTED CIRCUIT BOARD PREASSEMBLER Occupation Industry Job Start Date Job End Date working Not on file Not on file Not on file documented as of this encounter Plan of Treatment Not on file documented as of this encounter Visit Diagnoses Not on filedocumented in this encounter Care Teams Director Of Managed Care Relationship Specialty Start Date End Date Corey Angel MD 6812 [facility] [address] [place] [address] PCP - General Internal Medicine 06/18/21 Clem Thomson MD 4921 [facility] 11C [facility] [place] [address] Referring Physician Urology 06/14/24 Harman Morales MD [address] [place] [address] 160 [place] [address] Radiation Oncologist Radiation Oncology 06/22/24 James Robert DO [address] [place] [address] MEDICAL ONCOLOGY, [place] [facility] 180 [place] [address] Medical Oncologist/Inventory Worker Hematology and Oncology 07/12/24 documented as of this encounter
--- OUTSIDE RECORDS SUMMARY | 2024-09-30 12:39 | XMS_ITS | Encounter Summary ---
Author Organization [facility] Healthcare Address [address] [place] [address] Care Team Providers Care Spout Worker Name Role Phone Corey Angel MD Primary Care Provider [phone] Clem Thomson MD Unavailable Harman Morales MD Unavailable [phone] James Robert DO Unavailable [phone] Encounter Details Date Type Department Care Team [...] file Legal Sex Male 2:49 AM SUPERVISOR CARTOGRAPHY Gender Identity Male 05/22/2018 10:57 AM CDT Sexual Orientation Straight 11/03/2020 7: 01 PM SUPERVISOR CARTOGRAPHY Occupation Industry Job Start Date Job End Date working Not on file Not on file Not on file documented as of this encounter Plan of Treatment Not on file documented as of this encounter Procedures Procedure Name Priority Date/Time Associated Diagnosis Comments RAD ONC ARIA SESSION SUMMARY 09/10/2024 1:15 PM SUPERVISOR CARTOGRAPHY documented in this encounter Results * RAD ONC ARIA SESSION SUMMARY (09/10/2024 1:15 PM SUPERVISOR CARTOGRAPHY) Course Name C1_PROSTAT E_2023 ARIA Course Plan Date 08/20/2024 12:00 PM ARIA Elapsed Days 5 ARIA Treatment Start Date 09/05/2024 ARIA Treatment Site [id number] ARIA Dose Given To Date (cGy) 1,000 ARIA Session Dosage Given (cGy) 250 ARIA Plan ID PROSTATE_L NS ARIA Fractions Treated 4 ARIA Prescribed Dose Per Fraction (cGy) 250 ARIA Prescribed Total Dose (cGy) 7,000 ARIA 09/10/2024 1:15 PM SUPERVISOR CARTOGRAPHY us Not In File Miscellaneous RADIATION ONCOLOGY ORD ERABLES Final Result ARIA documented in this encounter Visit Diagnoses Not on filedocumented in this encounter Care Teams Spout Worker Relationship Specialty Start Date End Date Corey Angel MD 6812 [facility] [address] [place] [address] PCP - General Internal Medicine 06/18/21 Clem Thomson MD 4921 [facility] 11C [place] [address] Referring Physician Urology 06/14/24 Harman Morales MD 1418 [facility] 160 [place] [address] Radiation Oncologist Radiation Oncology 06/22/24 James oRbert DO [address] [place] [address] MEDICAL ONCOLOGY, [address] [address] Medical Oncologist/Body Recall Instructor Hematology and Oncology 07/12/24 documented as of this encounter
--- OUTSIDE RECORDS SUMMARY | 2024-09-30 12:39 | XMS_ITS | Encounter Summary ---
Author Organization [facility] Healthcare Address [address] [place] [address] Care Team Providers Care Compilation Clerk Name Role Phone Corey Angel MD Primary Care Provider [phone] Clem Thomson MD Unavailable Harman Morales MD Unavailable [phone] James Robert DO Unavailable [phone] Encounter Details Date Type Department Care Team (Late st Contact Info) Description 09/07/2024 1:00 PM INSTALLATION AND REPAIR TECHNICIAN Treatment [facility] Medical Office Building 2 Radiation Oncology [address] [place] [address] Social History Tobacco Use Types Packs/Day [...] on file Legal Sex Male 2:49 AM INSTALLATION AND REPAIR TECHNICIAN Gender Identity Male 05/22/2018 10:57 AM CDT Sexual Orientation Straight 11/03/2020 7: 01 PM INSTALLATION AND REPAIR TECHNICIAN Occupation Industry Job Start Date Job End Date working Not on file Not on file Not on file documented as of this encounter Plan of Treatment Not on file documented as of this encounter Visit Diagnoses Not on filedocumented in this encounter Care Teams Compilation Clerk Relationship Specialty Start Date End Date Corey Angel MD 6812 [facility] [address] [place] [address] PCP - General Internal Medicine 06/18/21 Clem Thomson MD 4921 [facility] 11C [facility] [place] [address] Referring Physician Urology 06/14/24 Harman Morales MD [address] [place] [address] 160 [place] [address] Radiation Oncologist Radiation Oncology 06/22/24 James Robert DO [address] [place] [address] MEDICAL ONCOLOGY, [facility] [address] [place] [address] Medical Oncologist/Merit System Director Hematology and Oncology 07/12/24 documented as of this encounter
--- OUTSIDE RECORDS SUMMARY | 2024-09-30 12:39 | XMS_ITS | Encounter Summary ---
Author Organization [facility] Healthcare Address [address] [place] [address] Care Team Providers Care Commercial Horticulture Instructor Name Role Phone Corey Angel MD Primary Care Provider [phone] Clem Thomson MD Unavailable Harman Morales MD Unavailable [phone] James Robert DO Unavailable [phone] Encounter Details Date Type Department Care Team (Late st Contact Info) Description 09/14/2024 1:00 PM SHARED SERVICES REPRESENTATIVE Treatment [facility] Medical Office Building 2 Radiation Oncology [address] [place] [address] Social History Tobacco Use Types Packs/Day [...] on file Legal Sex Male 2:49 AM SHARED SERVICES REPRESENTATIVE Gender Identity Male 05/22/2018 10:57 AM CDT Sexual Orientation Straight 11/03/2020 7: 01 PM SHARED SERVICES REPRESENTATIVE Occupation Industry Job Start Date Job End Date working Not on file Not on file Not on file documented as of this encounter Plan of Treatment Not on file documented as of this encounter Visit Diagnoses Not on filedocumented in this encounter Care Teams Commercial Horticulture Instructor Relationship Specialty Start Date End Date Corey Angel MD 6812 [facility] [address] [place] [address] PCP - General Internal Medicine 06/18/21 Clem Thomson MD 4921 [facility] 11C [facility] [address] Referring Physician Urology 06/14/24 Harman Morales MD [address] [place] [address] 160 [place] [address] Radiation Oncologist Radiation Oncology 06/22/24 James Robert DO [address] [place] [address] MEDICAL ONCOLOGY, [facility] 180 [place] [address] Medical Oncologist/Document Preparer Microfilming Hematology and Oncology 07/12/24 documented as of this encounter
--- OUTSIDE RECORDS SUMMARY | 2024-09-30 12:39 | XMS_ITS | Encounter Summary ---
Author Organization [facility] Healthcare Address [address] [place] [address] Care Team Providers Care Career Coordinator Name Role Phone Corey Angel MD Primary Care Provider [phone] Clem Thomson MD Unavailable Harman Morales MD Unavailable [phone] James Robert DO Unavailable [phone] Encounter Details Date Type Department Care Team (Late st Contact Info) Description 09/12/2024 1:00 PM AERIAL APPLICATOR PILOT Treatment [facility] Medical Office Building 2 Radiation Oncology [address] [place] [address] Social History Tobacco Use Types Packs/Day [...] on file Legal Sex Male 2:49 AM AERIAL APPLICATOR PILOT Gender Identity Male 05/22/2018 10:57 AM CDT Sexual Orientation Straight 11/03/2020 7: 01 PM AERIAL APPLICATOR PILOT Occupation Industry Job Start Date Job End Date working Not on file Not on file Not on file documented as of this encounter Plan of Treatment Not on file documented as of this encounter Visit Diagnoses Not on filedocumented in this encounter Care Teams Career Coordinator Relationship Specialty Start Date End Date Corey Angel MD 6812 [facility] [address] [place] [address] PCP - General Internal Medicine 06/18/21 Clem Thomson MD 4921 [facility] 11C [facility] [place] [address] Referring Physician Urology 06/14/24 Harman Morales MD [address] [place] [address] 160 [place] [address] Radiation Oncologist Radiation Oncology 06/22/24 James Robert DO [address] [place] [address] MEDICAL ONCOLOGY, [facility] [address] [place] [address] Medical Oncologist/Outside Parts Salesman Hematology and Oncology 07/12/24 documented as of this encounter
--- OUTSIDE RECORDS SUMMARY | 2024-09-30 12:40 | XMS_ITS | Encounter Summary ---
Author Organization [facility] Healthcare Address [address] [place] [address] Care Team Providers Care Airline Pilot Name Role Phone Corey Angel MD Primary Care Provider [phone] Clem Thomson MD Unavailable [phone] Harman Morales MD Unavailable [phone] Reason for Visit * Reason Comments Injections * Episode Based Medications (Routine) - Authorized Specialty Diagnoses / Procedures Referred By Contac t Referred To Contact Diagnoses Prostate cancer (HCC) Harman Morales MD [address] [place] [address] Phone: tel: fax: [facility] Medical Office Building 2 Radiation Oncology [address] [place] [address] Phone: tel: fax: Referral ID Status Reason Start Date Expiration Date V isits Requested Visits Authorized [id number] Authorized 07/06/2024 08/05/2025 4 4 Encounter Details Date Type Department Care Team (Latest Contact Info) Description 07/11/2024 1:00 PM CDT Clinical Support [facility] Medical Office Building 2 Radiation Oncology [address] [place] [phone] Prostate cancer (HCC) (Primary Dx) Social History [...] on file Legal Sex Male 2:49 AM PLAYBACK OPERATOR Gender Identity Male 05/22/2018 10:57 AM CDT Sexual Orientation Straight 11/03/2020 7: 01 PM PLAYBACK OPERATOR Occupation Industry Job Start Date Job [...] 07/11/2024 documented in this encounter Care Teams Airline Pilot Relationship Specialty Start Date End Date Corey Angel MD [address] [place] [address] PCP - General Internal Medicine 06/18/21 Clem Thomson MD [address] DIV SURG UROLOGY [place] [id number] Referring Physician Urology 06/14/24 Harman Morales MD [address] [place] [address] Radiation Oncologist Radiation Oncology 06/22/24 documented as of this encounter
--- OUTSIDE RECORDS SUMMARY | 2024-09-30 12:40 | XMS_ITS | Encounter Summary ---
Author Organization [facility] Healthcare Address [address] [place] [address] Care Team Providers Care Digital Account Executive Name Role Phone Corey Angel MD Primary Care Provider [phone] Clem Thomson MD Unavailable Harman Morales MD Unavailable [phone] James Robert DO Unavailable [phone] Encounter Details Date Type Department Care Team (Latest Contact Info) Description 08/03/2024 11:38 AM COMPLEX CASE MANAGER - 08/03/2024 11:59 PM COMPLEX CASE MANAGER Hospital Encounter [address] [address] Prostate cancer (HCC) Discharge Disposition: Discharge to [...] on file Legal Sex Male 2:49 AM COMPLEX CASE MANAGER Gender Identity Male 05/22/2018 10:57 AM CDT Sexual Orientation Straight 11/03/2020 7: 01 PM COMPLEX CASE MANAGER Occupation Industry Job Start Date Job [...] MICROSCOPIC AND CULTURE Routine 08/03/2024 11:39 AM COMPLEX CASE MANAGER Prostate cancer (HCC) documented in this encounter Results * Urinalysis reflex to microscopic and culture Urine, clean voided (08/03/2024 11:39 AM COMPLEX CASE MANAGER) Color, ur Straw Yellow Clarity, ur [...] for uric acid stone formation. Source: [facility] Digital Air Strike Current Interpretive Data was last revised on [...] CH Urine, clean voided 08/03/2024 11:39 AM COMPLEX CASE MANAGER 08/03/2024 3:00 PM COMPLEX CASE MANAGER us Harman Morales MD LAB MICROBIOLOGY - GENERAL ORD ERABLES Final Result [facility] [place] [address] [address] [place] [address] documented in this encounter Visit Diagnoses Diagnosis Prostate cancer (HCC) Malignant neoplasm of prostate documented in this encounter Care Teams Digital Account Executive Relationship Specialty Start Date End Date Corey Angel MD [address] INTERNAL MEDICINE [place], [place] [phone] PCP - General Internal Medicine 06/18/21 Clem Thomson MD 4921 [facility] 11C [place] [address] Referring Physician Urology 06/14/24 Harman Morales MD [facility]8 [facility] 160 [place], [place] [id number] Radiation Oncologist Radiation Oncology 06/22/24 James Robert DO 1418 [facility] MEDICAL ONCOLOGY, [facility] 180 [place], [place] [id number] Medical Oncologist/Shotweld Operator Hematology and Oncology 07/12/24 documented as of this encounter
--- OUTSIDE RECORDS SUMMARY | 2024-09-30 12:40 | XMS_ITS | Encounter Summary ---
Author Organization [facility] Healthcare Address [address] [place] [address] Care Team Providers Care Risk Reduction Counselor Name Role Phone Corey Angel MD Primary Care Provider [phone] Clem Thomson MD Unavailable Harman Morales MD Unavailable [phone] Encounter Details Date Type Department Care Team (Late st Contact Info) Description 07/06/2024 Orders Only [facility] Medical Office Building 2 Radiation Oncology [address] [place] [address] Taya Cartagena, MICAH Social History Tobacco [...] on file Legal Sex Male 2:49 AM POCKET SETTER Gender Identity Male 05/22/2018 10:57 AM CDT Sexual Orientation Straight 11/03/2020 7: 01 PM POCKET SETTER Occupation Industry Job Start Date Job End Date working Not on file Not on file Not on file documented as of this encounter Plan of Treatment Not on file documented as of this encounter Visit Diagnoses Not on filedocumented in this encounter Care Teams Risk Reduction Counselor Relationship Specialty Start Date End Date Corey Angel MD [address] [place] [address] PCP - General Internal Medicine 06/18/21 Clem Thomson MD 4921 [facility] 11C [facility] [place] [address] Referring Physician Urology 06/14/24 Harman Morales MD [address] [place] [address] Radiation Oncologist Radiation Oncology 06/22/24 documented as of this encounter
--- OUTSIDE RECORDS SUMMARY | 2024-09-30 12:40 | XMS_ITS | Encounter Summary ---
Author Organization [facility] Healthcare Address [address] [place] [address] Care Team Providers Care Reflesher Name Role Phone Corey Angel MD Primary Care Provider [phone] Clem Thomson MD Unavailable Harman Morales MD Unavailable [phone] James Robert DO Unavailable [phone] Encounter Details Date Type Department Care Team (Late st Contact Info) Description 08/13/2024 Telephone [facility] Medical Office Building 2 Radiation Oncology [address] [place] [address] Taya Cartagena, MICAH Social History Tobacco [...] on file Legal Sex Male 2:49 AM NATIONAL BUSINESS DIRECTOR Gender Identity Male 05/22/2018 10:57 AM CDT Sexual Orientation Straight 11/03/2020 7: 01 PM NATIONAL BUSINESS DIRECTOR Occupation Industry Job Start Date Job End Date working Not on file Not on file Not on file documented as of this encounter Miscellaneous Notes * Telephone Encounter - Taya Cartagena RN - 08/13/2024 2:33 PM NATIONAL BUSINESS DIRECTOR Returned patient's call regarding questions about upcoming procedure. I let him know his markers will be MRI compatible. I also confimred Fleets enema is a saline enema and can be found OTC. Remindedhim of prep for Tuesday's simulation as well. He verbalized understanding to all discussed. ONAL BUSINESS DIRECTOR documented in this encounter Plan of Treatment Not on file documented as of this encounter Visit Diagnoses Not on filedocumented in this encounter Care Teams Reflesher Relationship Specialty Start Date End Date Corey Angel MD [address] INTERNAL MEDICINE [place], [place] [phone] PCP - General Internal Medicine 06/18/21 Clem Thomson MD 4921 [facility] 11C [place] [address] Referring Physician Urology 06/14/24 Harman Morales MD [facility]8 [facility] 160 [place], [place] [address] Radiation Oncologist Radiation Oncology 06/22/24 James Robert DO 1418 [facility] IM MEDICAL ONCOLOGY, [address] [place], [place] [address] Medical Oncologist/Geographic Information Scientist Hematology and Oncology 07/12/24 documented as of this encounter
--- OUTSIDE RECORDS SUMMARY | 2024-09-30 12:40 | XMS_ITS | Encounter Summary ---
Author Organization [facility] Healthcare Address [address] [place] [address] Care Team Providers Care Angle Shear Operator Name Role Phone Corey Angel MD Primary Care Provider [phone] Clem Thomson MD Unavailable Harman Morales MD Unavailable [phone] James Robert DO Unavailable [phone] Encounter Details Date Type Department Care Team (Latest Contact Info) Description 08/17/2024 10:50 AM FACE WORKER - 08/17/2024 11:59 PM [facility] Hospital Encounter [facility] Advanced Medicine Radiation Oncology 4921 [facility] [place] [address] Eliezer Pérez MD 4921 [facility] [place] [address] Prostate cancer (HCC) (Primary Dx) Discharge Disposition: [...] on file Legal Sex Male 2:49 AM FACE WORKER Gender Identity Male 05/22/2018 10:57 AM CDT Sexual Orientation Straight 11/03/2020 7: 01 PM FACE WORKER Occupation Industry Job Start Date Job End Date working Not on file Not on file Not on file documented as of this encounter Last Filed Vital Signs Vital Sign Reading Time Taken Comments Blood Pressure 145/89 08/17/2024 12:20 PM FACE WORKER Pulse 67 08/17/2024 12:20 PM FACE WORKER Temperature - - Respiratory Rate 16 08/17/2024 12:20 PM FACE WORKER Oxygen Saturation 97% 08/17/2024 12:20 PM FACE WORKER Inhaled Oxygen Concentration - - Weight - - Height - - Body Mass Index - - documented in this encounter Discharge Instructions * Patient Instructions* Lexi Berrios RN - 08/17/2024 11:00 AM FACE WORKER DIAGNOSIS: Prostate cancer PROCEDURE: Marker placement CONDITION ON DISCHARGE: [x] Stable ACTIVITY/DIET: [x] Rest today, increase activity tomorrow as tolerated. [x] Return to usual diet. [x] Do not drive or operate hazardous machinery for 24 hr. [x] Do not drink any alcoholic beverages for 24 hr. [x] Stay with a responsible adult. MEDICATIONS: [x] Continue prescribed medications. [x] Take panq-[id number] medication for relief of pain or discomfort. [...] unable to reach your doctor please call [facility] business information analyst at [phone]. The magnaflux operator will contact the resident physician ent consultant for the RADIATION ONCOLOGY department to assist you. WORKER documented in this encounter Medications at Time [...] proceed with CT simulation for radiotherapy planning. WORKER documented in this encounter Nursing Notes * [...] VSS. Pt discharged to home via ambulatory. WORKER WORKER documented in this encounter Miscellaneous Notes * Addendum Note - Lexi Berrios RN - 08/17/2024 11:00 AM CSTEncounter addended by: Lexi Berrios RN on: 08/17/2024 12:50 PM Actions taken: Clinical Note Signed WORKER documented in this encounter Plan of Treatment [...] For 1 dose Given 08/17/2024 11:30 AM FACE WORKER 0.5 mg lidocaine (GLYDO) 2 % jelly 220 mg 220 mg (11 mL), topical, Once, On Tue08/17/24 at 1145, For 1 dose Given 08/17/2024 11:30 AM FACE WORKER 220 mg LORazepam (ATIVAN) 0.5 mg in sterile water (further dilution required) injection 0.5 mg, intravenous, Once, On Tue08/17/24 at 1145, For 1 dose, Withdraw ordered dose amount then dilute with equal volume of sterile water for injection. Administer total volume to patient. Do not exceed a rate of 2 mg/minute. Given 08/17/2024 11:31 AM FACE WORKER 0.5 mg documented in this encounter Discontinued Medications Medication Sig Discontinue Reason Start Date End Da te ciprofloxacin (Cipro) 250 mg tablet 500 mg the night before the procedure then 250 mg twice a day for 4 days Alternate therapy 08/10/2024 08/17/2024 documented as of this encounter Care Teams Angle Shear Operator Relationship Specialty Start Date End Date Corey Angel MD 6812 [facility] [address] INTERNAL MEDICINE [place], [place] [phone] PCP - General Internal Medicine 06/18/21 Clem Thomson MD [address] [place] [address] Referring Physician Urology 06/14/24 Harman Morales MD [address] [place] [address] 160 [place], [place] [phone] Radiation Oncologist Radiation Oncology 06/22/24 James Robert DO [address] [place] [address] IM MEDICAL ONCOLOGY, [facility] 180 [place], [place] [phone] Medical Oncologist/Cell Inspector Hematology and Oncology 07/12/24 documented as of this encounter
--- OUTSIDE RECORDS SUMMARY | 2024-09-30 12:40 | XMS_ITS | Encounter Summary ---
Author Organization [facility] Healthcare Address [address] [place] [address] Care Team Providers Care Yard Loader Operator Name Role Phone Corey Angel MD Primary Care Provider [phone] Clem Thomson MD Unavailable Harman Morales MD Unavailable [phone] James Robert DO Unavailable [phone] Encounter Details Date Type Department Care Team (Late st Contact Info) Description 08/10/2024 Orders Only [facility] Medical Office Building 2 Radiation Oncology [address] [place] [address] Taya Cartagena, MICAH Social History Tobacco [...] on file Legal Sex Male 2:49 AM COMPUTER FORENSIC EXAMINER Gender Identity Male 05/22/2018 10:57 AM CDT Sexual Orientation Straight 11/03/2020 7: 01 PM COMPUTER FORENSIC EXAMINER Occupation Industry Job Start Date Job End [...] on filedocumented in this encounter Care Teams Yard Loader Operator Relationship Specialty Start Date End Date Corey Angel MD 6812 [facility] 162 [facility] 209 [place] [address] PCP - General Internal Medicine 06/18/21 Clem Thomson MD [address] [place] [address] Referring Physician Urology 06/14/24 Harman Morales MD [address] [place] [address] 160 [place] [address] Radiation Oncologist Radiation Oncology 06/22/24 James Robert DO [address] [place] [address] MEDICAL ONCOLOGY, [facility] 180 [place] [address] Medical Oncologist/Customer Operations Manager Hematology and Oncology 07/12/24 documented as of this encounter
--- OUTSIDE RECORDS SUMMARY | 2024-09-30 12:40 | XMS_ITS | Encounter Summary ---
Author Organization [facility] Healthcare Address [address] [place] [address] Care Team Providers Care Privacy Officer Name Role Phone Corey Angel MD Primary Care Provider Clem Thomson MD Unavailable Harman Morales MD Unavailable [phone] James Robert DO Unavailable [phone] Encounter Details Date Type Department Care Team (Late st Contact Info) Description 08/03/2024 11:15 AM STEAMTABLE WORKER Lab [facility] Medical [facility] Outpatient Lab at [address] [address] Social History Tobacco Use Types [...] on file Legal Sex Male 2:49 AM STEAMTABLE WORKER Gender Identity Male 05/22/2018 10:57 AM CDT Sexual Orientation Straight 11/03/2020 7: 01 PM STEAMTABLE WORKER Occupation Industry Job Start Date Job End Date working Not on file Not on file Not on file documented as of this encounter Plan of Treatment Not on file documented as of this encounter Visit Diagnoses Not on filedocumented in this encounter Care Teams Privacy Officer Relationship Specialty Start Date End Date Corey Angel MD 6812 [facility] [address] [place] [address] PCP - General Internal Medicine 06/18/21 Clem Thomson MD 4921 [facility] 11C [facility] [place] [address] Referring Physician Urology 06/14/24 Harman Morales MD [address] [place] [address] 160 [place] [address] Radiation Oncologist Radiation Oncology 06/22/24 James Robert DO [address] [place] [address] MEDICAL ONCOLOGY, [facility] [address] [place] [address] Medical Oncologist/Storage Wharfage Clerk Hematology and Oncology 07/12/24 documented as of this encounter
--- OUTSIDE RECORDS SUMMARY | 2024-09-30 12:40 | XMS_ITS | Encounter Summary ---
Author Organization [facility] Address [address] [place] [address] Phone Care Team Providers Care Caterpillar Driver Name Role Phone Corey Angel MD Primary Care Provider [phone] Clem Thomson MD Unavailable [phone] Harman Morales MD Unavailable [phone] James Robert DO Unavailable [phone] Reason for Visit * Reason Comments Consult * Consultation (Routine) - Authorized Specialty Diagnoses / Procedures Referred By Contjairo t Referred To Contact Oncology Diagnoses Prostate cancer (HCC) Harman Morales MD 1418 [facility] 160 [place] [address] Phone: tel: fax: [facility] Oncology [address] [place] [address] 180 [place] [address] Phone: tel: fax: Referral ID Status Reason Start Date Expiration Date Visits Requested Visits Authorized [id number] Authorized Specialty Services Required 08/10/2025 99 99 Encounter Details Date Type Department Care Team (Late st Contact Info) Description 08/09/2024 2:30 PM FINAL ARMATURE TESTER Office Visit [facility] Oncology [address] [place] [address] 180 [place] [address] James Robert, DO [address] [place] [phone] Prostate cancer (HCC) (Primary Dx) Social History [...] on file Legal Sex Male 2:49 AM FINAL ARMATURE TESTER Gender Identity Male 05/22/2018 10:57 AM CDT Sexual Orientation Straight 11/03/2020 7: 01 PM FINAL ARMATURE TESTER Occupation Industry Job Start Date Job End Date working Not on file Not on file Not on file documented as of this encounter Last Filed Vital Signs Vital Sign Reading Time Taken Comments Blood Pressure 124/90 08/09/2024 3:04 PM FINAL ARMATURE TESTER Pulse 71 08/09/2024 3:04 PM FINAL ARMATURE TESTER Temperature 36.2 ??C (97.2 ??F) 08/09/2024 3:04 PM CS T Respiratory Rate 18 08/09/2024 3:04 PM FINAL ARMATURE TESTER Oxygen Saturation 97% 08/09/2024 3:04 PM FINAL ARMATURE TESTER Inhaled Oxygen Concentration - - Weight 116.4 kg (256 lb 9.6 oz) 08/09/2024 3:04 PM FINAL ARMATURE TESTER no shoes Height 179.1 cm (5' 10.5 ) 08/09/2024 3:04 PM CS T Body Mass Index 36.3 08/09/2024 3:04 PM FINAL ARMATURE TESTER documented in this encounter Ordered Prescriptions Prescription [...] 08/09/2024 documented in this encounter Care Teams Caterpillar Driver Relationship Specialty Start Date End Date Corey Angel MD [address] [facility] 209 INTERNAL MEDICINE [place], [place] [phone] PCP - General Internal Medicine 06/18/21 Clem Thomson MD [address] [place] [address] Referring Physician Urology 06/14/24 Harman Morales MD [facility] 160 [place], [place] [phone] Radiation Oncologist Radiation Oncology 06/22/24 James Robert DO 1418 [facility] MEDICAL ONCOLOGY, [facility] 180 [place] [address] Medical Oncologist/Mothers Helper Hematology and Oncology 07/12/24 documented as of this encounter
--- OUTSIDE RECORDS SUMMARY | 2024-09-30 12:40 | XMS_ITS | Encounter Summary ---
Author Organization [facility] Healthcare Address [address] [place] [address] Care Team Providers Care Home Theatre Technician Name Role Phone Corey Angel MD Primary Care Provider [phone] Clem Thomson MD Unavailable [phone] Harman Morales MD Unavailable [phone] Reason for Referral * Consultation (Routine) - Authorized Specialty Diagnoses / Procedures Referred By Contac t Referred To Contact Oncology Diagnoses Prostate cancer (HCC) Harman Morales MD 1418 [facility] 160 [place] [address] Phone: tel: fax: [facility] Oncology [address] [place] [address] [address] [place] [address] Phone: tel: fax: Referral ID Status Reason Start Date Expiration Date Visits Requested Visits Authorized [id number] Authorized Specialty Services Required 4 08/10/2025 99 99 Question Answer Please select the performing region: [facility] (All Locations) [167] Please select the performing department: [facility] IM ONC MHE2 180 [[id number]] Is this referral for Breast [facility]? No Does the patient have a diagnosis of a Head and Neck cancer? No # of visits: 1 Comments Recently diagnosed high risk prostate cancer. Consider abiraterone. Encounter Details Date Type Department Care Team (Late st Contact Info) Description 07/11/2024 1:00 PM CDT Office Visit [facility] Medical Office Building 2 Radiation Oncology [address] [place] [address] Harman Morales MD 1418 [facility] 160 [place], [place] [phone] Prostate cancer (HCC) (Primary Dx) Social History [...] file Legal Sex Male 2:49 AM DIRECTOR DECISION SUPPORT Gender Identity Male 05/22/2018 10:57 AM CDT Sexual Orientation Straight 11/03/2020 7: 01 PM DIRECTOR DECISION SUPPORT Occupation Industry Job Start Date Job End [...] Corey Angel MD Medical Oncologist: No care collection team lead to display Surgeon: No care collection team lead to display Date of Service: 07/11/2024 RADIATION [...] User Date and Time DIONICIO CANELA RN [[id number]] 07/11/2024 1:07 PM REVIEW OF SYSTEM Except [...] 06/18/2024 added in this encounter Care Teams Home Theatre Technician Relationship Specialty Start Date End Date Corey Angel MD 6812 [facility] [address] [place] [address] PCP - General Internal Medicine 06/18/21 Clem Thomson MD 4921 [facility] 11C [facility] [address] Referring Physician Urology 06/14/24 Harman Morales MD [address] [place] [address] Radiation Oncologist Radiation Oncology 06/22/24 documented as of this encounter
--- OUTSIDE RECORDS SUMMARY | 2024-09-30 12:40 | XMS_ITS | Encounter Summary ---
Author Organization [facility] Healthcare Address [address] [place] [address] Care Team Providers Care Route Cdl Driver Name Role Phone Corey Angel MD Primary Care Provider [phone] Clem Thomson MD Unavailable Harman Morales MD Unavailable [phone] James Robert DO Unavailable [phone] Encounter Details Date Type Department Care Team (Late st Contact Info) Description 08/03/2024 Orders Only [facility] 2 Radiation Oncology [address] [place] [address] Taya Cartagena, MICAH Prostate cancer (HCC) [...] on file Legal Sex Male 2:49 AM TAPE RULES PRINTING MACHINE OPERATOR Gender Identity Male 05/22/2018 10:57 AM CDT Sexual Orientation Straight 11/03/2020 7: 01 PM TAPE RULES PRINTING MACHINE OPERATOR Occupation Industry Job Start Date Job End Date working Not on file Not on file Not on file documented as of this encounter Miscellaneous Notes * Addendum Note - Alexandra Schreiber - 08/03/2024 11:37 AM CSTAddended by: ALEXANDRA SCHREIBER on: 08/03/2024 11:39 AM Modules accepted: Orders RULES PRINTING MACHINE OPERATOR documented in this encounter Plan of Treatment Not on file documented as of this encounter Results * Urinalysis reflex to microscopic and culture Urine, clean voided (08/03/2024 11:39 AM TAPE RULES PRINTING MACHINE OPERATOR) Color, ur Straw Yellow Clarity, ur Clear [...] tendency for uric acid stone formation. Source: [facility] Current Interpretive Data was last revised [...] CH Urine, clean voided 08/03/2024 11:39 AM TAPE RULES PRINTING MACHINE OPERATOR 08/03/2024 3:00 PM TAPE RULES PRINTING MACHINE OPERATOR us Harman Morales MD LAB MICROBIOLOGY - GENERAL ORD ERABLES Final Result [facility] [address] [place] [address] documented in this encounter Visit Diagnoses Diagnosis Prostate cancer (HCC)- Primary Malignant neoplasm of prostate documented in this encounter Care Teams Route Cdl Driver Relationship Specialty Start Date End Date Coery Angel MD [address] INTERNAL MEDICINE [place], [place] [id number] PCP - General Internal Medicine 06/18/21 Clem Thomson MD [address] [facility] [address] [place] [address] Referring Physician Urology 06/14/24 Harman Morales MD [employer] [address] [place], [place] [id number] Radiation Oncologist Radiation Oncology 06/22/24 James Robert DO [address] [facility], [facility] [address] [place] [address] Medical Oncologist/Residential Care Facility Manager Hematology and Oncology 07/12/24 documented as of this encounter
--- OUTSIDE RECORDS SUMMARY | 2024-09-30 12:41 | XMS_ITS | Encounter Summary ---
Author Organization [facility] Healthcare Address [address] [place] [address] Care Team Providers Care Profile Trimmer Name Role Phone Corey Angel MD Primary Care Provider Johnson Falcon MD Unavailable [phone] Clem Thomson MD Unavailable Encounter Details Date Type Department Care Team (Late st Contact Info) Description 06/15/2024 3:00 PM CDT Lab [facility] Medical Group Outpatient Lab at [address] [address] Elevated PSA (Primary Dx); Prostate [...] on file Legal Sex Male 2:49 AM AUTO CAMP ATTENDANT Gender Identity Male 05/22/2018 10:57 AM CDT Sexual Orientation Straight 11/03/2020 7: 01 PM AUTO CAMP ATTENDANT Occupation Industry Job Start Date Job End Date working Not on file Not on file Not on file documented as of this encounter Plan of Treatment Not on file documented as of this encounter Visit Diagnoses Diagnosis Elevated PSA- Primary Elevated prostate specific antigen (PSA) Prostate cancer (HCC) Malignant neoplasm of prostate documented in this encounter Care Teams Profile Trimmer Relationship Specialty Start Date End Date Corey Angel MD [address] [facility] [address] [place] [address] PCP - General Internal Medicine 06/18/21 Johnson Falcon MD 49[address] [facility] [address] [place] [address] Radiation Oncologist Radiation Oncology 06/14/24 Clem Thomson MD 49[address] [facility] [address] [place] [address] Referring Physician Urology 06/14/24 documented as of this encounter
--- OUTSIDE RECORDS SUMMARY | 2024-09-30 12:41 | XMS_ITS | Encounter Summary ---
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 Gender Identity Male 05/22/2018 10:57 AM CDT Sexual Orientation Straight 11/03/2020 7: 01 PM DIGITAL COMMUNITY MANAGER Occupation Industry Job Start Date Job [...] Falcon MD LAB BLOOD ORDERABLES Final Result [facility] [address] Department [place] [address] * (ABNORMAL) Differential, auto (06/15/2024 3:04 PM CDT) Neutrophil abs 4.0 1.5 - 6.5 K/cumm Imm gran abs 0.0 0.0 - 0.1 K/cumm [facility] Lymphocyte abs 1.4 0.8 - 3.3 K/cumm [facility] Monocyte abs 1.0(H) 0.2 - 0.8 K/cumm [facility] Eosinophil abs 0.3 0.0 - 0.5 K/cumm [facility] Basophil abs 0.1 0.0 - 0.1 K/cumm [facility] Neutrophil pct 58.1 % [facility] Comment: Interpretive Data Percent cell count reference ranges are not reported, since discordance with absolute values may lead to misinterpretation of CBC data. Current Interpretive Data was last revised on 2018. Imm gran pct 0.3 % [facility] Comment: Interpretive Data Percent cell count reference ranges are not reported, since discordance with absolute values may lead to misinterpretation of CBC data. Current Interpretive Data was last revised on 2018. Lymphocyte pct 20.8 % [facility] Comment: Interpretive Data Percent cell count reference ranges are not reported, since discordance with absolute values may lead to misinterpretation of CBC data. Current Interpretive Data was last revised on 2018. Monocyte pct 15.1 % [facility] Comment: Interpretive Data Percent cell count reference ranges are not reported, since discordance with absolute values may lead to misinterpretation of CBC data. Current Interpretive Data was last revised on 2018. Eosinophil pct 5.0 % [facility] Comment: Interpretive Data Percent cell [...] Falcon MD LAB BLOOD ORDERABLES Final Result [facility] [address] Department [place] [address] * (ABNORMAL) Comprehensive metabolic panel [...] LAB BLOOD ORDERABLES Final Result [facility] [address] [place] [address] * (ABNORMAL) CBC with auto [...] BLOOD ORDERABLES Final Result Performing Organization Address City/[facility]/ZIP Co de Phone Number [facility] [address] [place] [address] * (ABNORMAL) Total testosterone (06/15/2024 3:04 PM CDT) Testosterone 101(L) 193 - 740 ng/dL Blood 06/15/2024 3:04 PM CDT 06/15/2024 8:15 PM CDT Johnson Falcon MD LAB BLOOD ORDERABLES Final Result Performing Organization Address [facility] Phone Number [facility] [address] Department [place] [address] * (ABNORMAL) PSA diagnostic (06/15/2024 3:04 PM [...] LAB BLOOD ORDERABLES Final Result [facility] [address] Department [place] [address] documented in this encounter Visit Diagnoses Diagnosis Prostate cancer (HCC) Malignant neoplasm of prostate documented in this encounter Care Teams Scribing Machine Operator Relationship Specialty Start Date End Date Corey Angel MD [address] INTERNAL MEDICINE [place], [place] [id number] PCP - General Internal Medicine 06/18/21 Johnson Falcon MD [address] [facility] [address] [place] [address] Radiation Oncologist Radiation Oncology 06/14/24 Clem Thomson MD 49[address] [facility] [address] [place] [address] Referring Physician Urology 06/14/24 documented as of this encounter
--- OUTSIDE RECORDS SUMMARY | 2024-09-30 12:41 | XMS_ITS | Encounter Summary ---
Author Organization [facility] Address [address] [place] [address] Phone Care Team Providers Care Radiology Special Procedure Tech Name Role Phone Corey Angel MD Primary Care Provider [phone] Encounter Details Date Type Department Care Team (Late st Contact Info) Description 04/20/2024 Orders Only [place] [facility] ([employer] - [facility] Urology [address] [facility] Advanced Medicine 11th [place] [address] [place] [address] Clem Thomson MD [address] [facility] [id number] [place] [address] Social History Tobacco Use Types Packs/Day Years [...] on file Legal Sex Male 2:49 AM RADIOLOGY TECHNICIAN Gender Identity Male 05/22/2018 10:57 AM CDT Sexual Orientation Straight 11/03/2020 7: 01 PM RADIOLOGY TECHNICIAN Occupation Industry Job Start Date Job [...] on filedocumented in this encounter Care Teams Radiology Special Procedure Tech Relationship Specialty Start Date End Date Corey Angel MD [address] [place] [address] PCP - General Internal Medicine 06/18/21 documented as of this encounter
--- OUTSIDE RECORDS SUMMARY | 2024-09-30 12:41 | XMS_ITS | Encounter Summary ---
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 Pre-Cert: Patient does need the request we submitted to be withdrawn for the PET scan authorization please Patient Provider: Medical/Surgical Information: Outcome/Plan: documented in this encounter Plan of Treatment Not on file documented as of this encounter Visit Diagnoses Not on filedocumented in this encounter Care Teams Vp Software Relationship Specialty Start Date End Date Corey Angel MD [address] [facility] [address] [place] [address] PCP - General Internal Medicine 06/18/21 documented as of this encounter
--- OUTSIDE RECORDS SUMMARY | 2024-09-30 12:41 | XMS_ITS | Encounter Summary ---
Author Organization [facility] Healthcare Address [address] [place] [address] Care Team Providers Care Community Specialist Name Role Phone Corey Angel MD Primary Care Provider Clem Thomson MD Unavailable [phone] Harman Morales MD Unavailable [phone] Reason for Referral * MRI/CAT/PET Scan (Routine) - Closed Specialty Diagnoses / Procedures Referred By Contac t Referred To Contact Radiology Diagnoses Prostate cancer (HCC) Procedures MRI Pelvis W WO Contrast Harman Morales MD [address] [place], [place] [address] Phone: tel: fax: [address] [address] Referral ID Status Reason Start Date Expiration Date Visits Re quested Visits Authorized [id number] Closed 07/02/2024 08/31/2024 1 1 Reason for Visit * MRI/CAT/PET Scan (Routine) - Closed Specialty Diagnoses / Procedures Referred By Contac t Referred To Contact Radiology Diagnoses Prostate cancer (HCC) Procedures MRI Pelvis W WO Contrast Harman Morales MD [address] [place] [address] Phone: tel: fax: [address] [address] Referral ID Status Reason Start Date Expiration Date Visits Re quested Visits Authorized [id number] Closed 07/02/2024 08/31/2024 1 1 Encounter Details Date Type Department Care Team (Latest Contact Info) Description 07/02/2024 2:17 PM CDT - 07/02/2024 11:59 PM CDT Hospital Encounter [facility] [address] [place] [address] Prostate cancer (HCC) Discharge Disposition: Discharge to [...] on file Legal Sex Male 2:49 AM LEAD AUDITOR Gender Identity Male 05/22/2018 10:57 AM CDT Sexual Orientation Straight 11/03/2020 7: 01 PM LEAD AUDITOR Occupation Industry Job Start Date Job [...] D: ??07/04/2024 1:17 PM T: Report ID: [id number] Reading Location: ??[id number] Procedure Note Koffi Cormier DO - 07/04/2024 [...] History of prostate biopsyon 04/30/2024 with a Milmay score of 7. correlated with recent clinic notesand biopsy results if available. FINDINGS: PROSTATE: Size: 4.1 x 4.7 x 4.2 cm. Volume: 42.38 cc.PSA: 10 Ng/mL. PSA density: 0.24 Ng/ml/cc. TRANSITIONAL ZONE: There are multiple small nodules of varying P5sodewuntd with T2 hypointense rims as seen with [...] by Koffi Russo.O. PS T: Report ID: [id number] Reading Location: [id number] Harman Morales MD IM MRI PROCEDURES Final [...] 03/2024 documented in this encounter Care Teams Community Specialist Relationship Specialty Start Date End Date Corey Angel MD [address] [facility] [address] [place] [address] PCP - General Internal Medicine 06/18/21 Clem Thomson MD 4921 [facility] [address] [place] [address] Referring Physician Urology 06/14/24 Harman Morales MD 1418 [facility] [address] [place] [address] Radiation Oncologist Radiation Oncology 06/22/24 documented as of this encounter
--- OUTSIDE RECORDS SUMMARY | 2024-09-30 12:41 | XMS_ITS | Encounter Summary ---
Author Organization [facility] Address [address] [facility] [address] [place] [address] Phone Care Team Providers Care Registered Health Nurse Name Role Phone Corey Angel MD Primary Care Provider [phone] Encounter Details Date Type Department Care Team (Late st Contact Info) Description 04/18/2024 10:45 AM CDT Office Visit [facility] [address] [place] [address] Eusebia Coleman MD [address] [facility] [address] [place] [address] Aneurysm of ascending aorta without [...] on file Legal Sex Male 2:49 AM MEDIA DEVELOPER Gender Identity Male 05/22/2018 10:57 AM CDT Sexual Orientation Straight 11/03/2020 7: 01 PM MEDIA DEVELOPER Occupation Industry Job Start Date Job End [...] Mixon, TYLER - 04/18/2024 10:45 AM CDT [facility] Division of Cardiothoracic Surgery Name: Clem Capellan : 1950 Date: 04/18/2024 Requesting Crew Mess Attendant:Corey Angel MD PCP: Corey Angel MD Consulting [...] regards, Tameka Mixon, MSN,ANP- Adult Nurse Practitioner [facility] Division of Cardiothoracic Surgery Cosigned by Eusebia Coleman MD at 04/25/2024 10:30 AM CDT documented in this encounter Plan of Treatment Not on file documented as of this encounter Visit Diagnoses Diagnosis Aneurysm of ascending aorta without rupture (HCC)- Primary documented in this encounter Care Teams Registered Health Nurse Relationship Specialty Start Date End Date Corey Angel MD [address] [facility] [address] [facility] [address] INTERNAL MEDICINE [place] [id number] PCP - General Internal Medicine 06/18/21 documented as of this encounter
--- OUTSIDE RECORDS SUMMARY | 2024-09-30 12:41 | XMS_ITS | Encounter Summary ---
Author Organization [facility] Address [address] [place] [address] Phone Care Team Providers Care Event Decorator And Designer Name Role Phone Corey Angel MD Primary Care Provider [phone] Reason for Referral * MRI/CAT/PET Scan (Routine) - Closed Specialty Diagnoses / Procedures Referred By Contac t Referred To Contact Radiology Diagnoses Prostate cancer (HCC) Procedures PET/CT Prostate Cancer [facility] Skull to Thigh Clem Thomson MD [id number] [place] [address] Phone: tel: fax: [address] [address] Referral ID Status Reason Start Date Expiration Date Visits Re quested Visits Authorized [id number] Closed 05/29/2024 07/28/2024 2 2 Encounter Details Date Type Department Care Team (Late st Contact Info) Description 05/02/2024 Orders Only [place] [facility] ([employer] Urology [address] [facility] 11th [place] [address] [place] [address] Clem Thomson MD [id number] [place] [address] Prostate cancer (HCC) (Primary Dx) [...] on file Legal Sex Male 2:49 AM 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
--- OUTSIDE RECORDS SUMMARY | 2024-09-30 12:41 | XMS_ITS | Encounter Summary ---
Author Organization [facility] Address [address] [place] [address] Phone Care Team Providers Care Front End Technician Name Role Phone Corey Angel MD Primary Care Provider [phone] Reason for Referral * Consultation (Routine) - Closed Specialty Diagnoses / Procedures Referred By Hoang zavala Referred To Contact Radiation Oncology Diagnoses Prostate cancer (HCC) Clem Thomson MD [address] [facility] [id number] [place] [address] Phone: tel: fax: [facility] Radiation Oncology [address] [place] [address] Phone: tel: fax: Referral ID Status Reason Start Date Expiration Date V isits Requested Visits Authorized [id number] Closed Specialty Services Required 06/12/2024 07/15/2024 1 1 Question Answer Please select the performing region: [facility] [[id number]] Please select the performing department: [place] [address] RAD ONC [[id number]] # of visits: 1 Comments Newly diagnosed Anil 3+4 prostate cancer. 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
--- OUTSIDE RECORDS SUMMARY | 2024-09-30 12:41 | XMS_ITS | Encounter Summary ---
Author Organization [facility] Address [address] [place] [address] Phone Care Team Providers Care Lens Blank Gauger Name Role Phone Corey Angel MD Primary Care Provider Reason for Referral * MRI/CAT/PET Scan (Routine) - Pending Review Specialty Diagnoses / Procedures Referred By Contac t Referred To Contact Radiology Diagnoses Aneurysm of ascending aorta without rupture (HCC) Procedures CTA Chest W Contrast Eusebia Coleman MD [address] [facility] [address] [place] [address] Phone: tel: fax: [address] [address] Referral ID Status Reason Start Date Expiration Date V isits Requested Visits Authorized [id number] Pending Review 04/18/2024 05/18/2025 1 1 Encounter Details Date Type Department Care Team (Late st Contact Info) Description 04/18/2024 Orders Only [facility] Cardiothoracic Surgery [facility] Advanced Medicine 8th Floor [address] [place] [address] Eusebia Coleman MD [address] [facility] [address] [place] [address] Aneurysm of ascending aorta without [...] file Legal Sex Male 2:49 AM MEDICAL SUPERVISOR Gender Identity Male 05/22/2018 10:57 AM CDT Sexual Orientation Straight 11/03/2020 7: 01 PM MEDICAL SUPERVISOR Occupation Industry Job Start Date Job [...] Primary documented in this encounter Care Teams Lens Blank Gauger Relationship Specialty Start Date End Date Corey Angel MD [address] [facility] [address] [facility] [address] [place] [address] PCP - General Internal Medicine 06/18/21 documented as of this encounter
--- OUTSIDE RECORDS SUMMARY | 2024-09-30 12:41 | XMS_ITS | Encounter Summary ---
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 Thomson. Patient Provider: [facility] Information: Outcome/Plan: documented in this encounter Plan of Treatment Not on file documented as of this encounter Visit Diagnoses Not on filedocumented in this encounter Care Teams Production Control Clerk Relationship Specialty Start Date End Date Corey Angel MD [address] [facility] [address] [place] [address] PCP - General Internal Medicine 06/18/21 documented as of this encounter
--- OUTSIDE RECORDS SUMMARY | 2024-09-30 12:41 | XMS_ITS | Encounter Summary ---
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. TYPE OF STUDY: PSMA-11 (Gozetotide)-PET/CT. The images available for review consisted of axial attenuation-corrected and uncorrected PET images and axial CT images. The total scanned area was skull base to the proximal thighs. The mean liver SUV (reported for quality control microbiology supervisor purposes) is 5.63. The study was interpreted on the Side.Cr workstation. The protocol was adequate to address the clinical question. The outside final report was not available at the time of this second opinion interpretation. DATE OF CONSULTATION: 06/13/2024 HISTORY: 73-year-old male with prostatic adenocarcinoma, [place] House score 3+4 = 7, perineural invasion. ??Elevated [...] STUDY INITIALLY PERFORMED: 06/01/2024, images acquired at [facility]. TYPE OF STUDY: PSMA-11 (Gozetotide)-PET/CT. The images available for review consisted of axial attenuation-corrected and uncorrected PET images and axial CT images. The total scanned area was skull base to the proximal thighs. The mean liver SUV (reported for quality control microbiology supervisor purposes) is 5.63. The study was interpreted on the Side.Cr workstation. The protocol was adequate to address [...] images may or may not represent the [place] source data set and thus may contain [...] unknown documented in this encounter Care Teams Track Dresser Relationship Specialty Start Date End Date Corey Angel MD [address] [place] [address] PCP - General Internal Medicine 06/18/21 documented as of this encounter
--- OUTSIDE RECORDS SUMMARY | 2024-09-30 12:41 | XMS_ITS | Encounter Summary ---
Author Organization [facility] Healthcare Address [address] [place] [address] Care Team Providers Care Guard Immigration Name Role Phone Corey Angel MD Primary Care Provider [phone] Clem Thomson MD Unavailable [phone] Harman Morales MD Unavailable Reason for Referral * MRI/CAT/PET Scan (Routine) - Closed Specialty Diagnoses / Procedures Referred By Contac t Referred To Contact Radiology Diagnoses Prostate cancer (HCC) Procedures MRI Pelvis W WO Contrast Harman Morales MD [address] [place] [address] Phone: tel: fax: [address] [address] Referral ID Status Reason Start Date Expiration Date Visits Re quested Visits Authorized [id number] Closed 07/02/2024 08/31/2024 1 1 Reason for Visit * Reason Comments Consult * Consultation (Routine) - Closed Specialty Diagnoses / Procedures Referred By Contac t Referred To Contact Radiation Oncology Diagnoses Prostate cancer (HCC) Clem Thomson MD [address] [facility] # [id number] [address] [place] [address] Phone: tel: fax: [facility] Radiation Oncology [address] [facility] [place] [address] Phone: tel: fax: Referral ID Status Reason Start Date Expiration Date V isits Requested Visits Authorized [id number] Closed Specialty Services Required 06/12/2024 07/15/2024 1 1 Encounter Details Date Type Department Care Team ([facility] st Contact Info) Description 06/28/2024 1:[address] 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 Gender Identity Male 05/22/2018 10:57 AM CDT Sexual Orientation Straight 11/03/2020 7: 01 PM FREIGHT CAR CLEANER Occupation Industry Job Start Date Job End [...] Corey Angel MD Medical Oncologist: No care molybdenum steamer operator to display Surgeon: No care molybdenum steamer operator to display Referring Provider: Clem Thmoson MD Date of Service: 06/28/2024 RADIATION ONCOLOGY [...] male seen at the request of Clem Tohmson MD for his recently diagnosed high risk [...] User Date and Time DIONICIO CANELA RN [[id number]] 06/28/2024 12:52 PM REVIEW OF SYSTEM Except [...] of prostate biopsy on 04/30/2024 with a Mitchells score of 7. ??correlated with recent clinic [...] D: ??07/04/2024 1:17 PM T: Report ID: [id number] Reading Location: ??[id number] Procedure Note Koffi Cormier DO - 07/04/2024 [...] History of prostate biopsyon 04/30/2024 with a Mitchells score of 7. correlated with recent clinic notesand biopsy results if available. FINDINGS: PROSTATE: Size: 4.1 x 4.7 x 4.2 cm. Volume: 42.38 cc.PSA: 10 Ng/mL. PSA density: 0.24 Ng/ml/cc. TRANSITIONAL ZONE: There are multiple small nodules of varying I7pgyherdtg with T2 hypointense rims as seen with [...] Koffi Cormier D.O. PS T: Report ID: [id number] Reading Location: [id number] Harman Morales MD IMG MRI PROCEDURES Final Resul t documented in this encounter Visit Diagnoses Diagnosis Prostate cancer (HCC) Malignant neoplasm of prostate Prostate cancer (HCC) Malignant neoplasm of prostate documented in this encounter Orders Outpatient Referral Count Last Ordered Date Fir st Ordered Date AMB REFERRAL TO RADIATION ONCOLOGY 1 2023 documented in this encounter Care Teams Guard Immigration Relationship Specialty Start Date End Date Corey Angel MD [address] INTERNAL MEDICINE [place], [place] [id number] PCP - General Internal Medicine 06/18/21 Clem Thomson MD [address] [facility] [address] [place] [address] Referring Physician Urology 06/14/24 Harman Morales MD [address] [facility] [address] [place] [address] Radiation Oncologist Radiation Oncology 06/22/24 documented as of this encounter
--- OUTSIDE RECORDS SUMMARY | 2024-09-30 12:41 | XMS_ITS | Encounter Summary ---
Author Organization [facility] Healthcare Address [address] [place] [address] Care Team Providers Care Director Of Personnel Name Role Phone Corey Angel MD Primary Care Provider [phone] Clem Thomson MD Unavailable Harman Morales MD Unavailable [phone] Encounter Details Date Type Department Care Team (Late st Contact Info) Description 06/29/2024 Orders Only [facility] Medical Office Building 2 Radiation Oncology [address] [place], [place] [phone] Harman Morales MD [address] [place] [id number] Social History Tobacco Use Types Packs/Day Years [...] on file Legal Sex Male 2:49 AM ROCK 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 Gender Identity Male 05/22/2018 10:57 AM CDT Sexual Orientation Straight 11/03/2020 7: 01 PM ROCK 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 Occupation Industry Job Start Date Job End [...] in this encounter Care Teams Director Of Personnel Relationship Specialty Start Date End Date Corey Angel MD [address] [facility] [address] [place] [address] PCP - General Internal Medicine 06/18/21 Clem Thomson MD [address] [facility] [address] [place] [address] Referring Physician Urology 06/14/24 Harman Morales MD [address] [place] [address] Radiation Oncologist Radiation Oncology 06/22/24 documented as of this encounter
--- OUTSIDE RECORDS SUMMARY | 2024-09-30 12:41 | XMS_ITS | Encounter Summary ---
Author Organization [facility] Healthcare Address [address] [place] [address] Care Team Providers Care Wrist Liner Name Role Phone Corey Angel MD Primary Care Provider [phone] Reason for Visit * Auth/Cert (Routine) Specialty Diagnoses / Procedures Referred By Contac t Referred To Contact Diagnoses Elevated PSA Elevated PSA [R97.20] Procedures NE BX PROSTATE STRTCTC SATURATION SAMPLING IMG GID CHG US GUIDANCE NEEDLE PLACEMENT IMG S&I TRANSPERINEAL EXACT VU GUIDED PROSTATE BIOPSY BIOPSY PROSTATE - ULTRASOUND Referral ID Status Reason Start Date Expiration Date Visits Re quested Visits Authorized [id number] 1 1 Encounter Details Date Type Department Care Team (Late st Contact Info) Description 04/30/2024 9:31 AM CDT - 04/30/2024 12:40 PM CDT Hospital Encounter [facility] Operating Room [address] [place] [address] Nallely Thomson MD [address] [facility] # [phone] [place] [address] Elevated PSA Discharge Disposition: Discharge to home [...] on file Legal Sex Male 2:49 AM CHAMBER MAGISTRATE Gender Identity Male 05/22/2018 10:57 AM CDT Sexual Orientation Straight 11/03/2020 7: 01 PM CHAMBER MAGISTRATE Occupation Industry Job Start Date Job [...] - Docusate/miralax as needed for constipation, available [id number] Pain Control: - Start by applying ice [...] PM: Please call the Urology office at [phone] with any questions or concerns and ask for a member of your doctor's team. For urgent matters after 5:00 PM during the week or on weekends or holidays, call [phone] and ask to have the Urology Liquor Blender Physician paged for you. Follow up: Dr. Thomson will call you with the pathology results. You have received anesthesia, therefore, for the next 24 hours and/or while taking narcotic pain medication; -Do NOT drive a vehicle -Do NOT drink alcohol -Do NOT make important personal or business decisions or sign legal documents. Examples of narcotic pain medication include Percocet, Oxycontin, Spring House, Hydrocodone, and Oxycodone. FAQs (frequently asked questions) [...] physical therapy, we are available to assist: [facility] STAR: [facility] [phone] [place] [phone] [facility] [phone] How are some things that you can [...] given by your doctor or other health associate director career services. documented in this encounter Medications at Time [...] Preoperative Evaluation Record Evaluation type/location: [place] [facility] Planned procedure site: [facility] OR Date: 04/26/24 NOTE: This note represents [...] - current AAA. Pertinent negatives: hypertension ; NH ; CABG ; valvular heart disease; atrial [...] provided by telephone and electronically sent via Stayzilla. Patient verbalized understanding of instructions. Blood bank needs for day of procedure: No type and screen needed Pending labs/tests include: None TPAP complete. Preoperative evaluation performed by Gianna Mckenzie NP on 04/26/24 at 12:02 PM . 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 * If having surgery at [facility], you may want to bring a credit card if you want to use our Mobile Pharmacy for your discharge medications. Mobile pharmacy is not available at [facility], the [facility], or the [place] [facility]. 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 You should leave your valuables and any jewelry at home. No metal or piercings are allowed in the operating room. You should bring your insurance card, a photo ID (example: Chip Crusher Operator's License) and a method of payment for [...] Chart. If you are having surgery at [facility], please arrive on the day of [...] Remove nail coverings, artificial nails and nail taiwanese. Place clean linens on your bed the [...] questions, please call the CPAP Staff at [phone], Tuesday-Tuesday 8am-4:30pm. All patients should read the below section: Information on [facility]: Please view [email or web address] (Patient & Visitor Information) for additional details regarding Advanced Directive forms, AWARE, directions, parking information, lodging, Internet access, dining and more. Information on [facility] or [facility] [place] ([facility]): Please view [email or web address] (Patient and Visitor Information) for parking/directions and more. For MyChart information, to activate account or password recovery, please go to [email or web address] or call [phone] (toll-free: [phone]), Tue- Tuesday 8am-5pm. Information for Suicide Prevention: National Suicide Prevention Lifeline (5-121- 222-JAHK (4781)) or call or text 305. Chat resources: micecloud.org. Surgery Times: For patients having surgery @ [facility] or [facility] ([facility]), if your surgeon's office has not notified you of your surgery time by NOON THE BUSINESS DAY BEFORE your surgery, please call [phone] and ask for your surgeon's office The [facility] ([facility]) does not provide arrival times for the [...] results best viewed via link to PDF [facility] [place] [address] Note to Patients: This report may contain [...] Gender: ??M : ??1950 (Age: 73) Address: ??[address] [place] [address] ??[phone] [facility] #: ??[id number] Taken:04/30/2024 Received:04/30/2024 Reported: 05/01/2024 Patient Type: C EP SAME Client ?[facility] Service: Surgery Location: Physician(s): ??Ze Larsen M.D. Diagnosis: A. Prostate, right, biopsy: ? - Prostatic adenocarcinoma, Anil score 3+4=7 (5% pattern 4), grade group 2, in two of four core(s), involving 60% of total core tissue ? B. Prostate, left, biopsy: ? - Prostatic adenocarcinoma, [place] score 3+4=7 (15% pattern 4), grade group [...] ordered molecular analysis. Materials were forwarded to [facility] where the Polaris Biopsy Test test will [...] The [employer] HRD test was performed by [employer] [address] [place], [place] [address]. Microscopic slide review and interpretation for this case was performed at [facility], Department of Surgical Pathology, [address] [facility] [address], [id number], ??[facility], [place] ??[address] ?? CLIA # [id number] The performance characteristics of some immunohistochemical stains, fluorescence in-situ hybridization tests and immunophenotyping by flow cytometry cited in this report (if any) were determined by the Surgical Pathology and Flow Cytometry Departments at [facility] as part of an ongoing it quality assurance analyst program and in compliance with federally mandated [...] Pathology and Flow Cytometry Departments of [facility]. ??It has not been cleared or approved by the U. S. Food and Drug Administration. IMAGES AND SCANNED DOCUMENTS, IF INCLUDED, ONLY VIEWABLE IN PDF VERSION OF REPORT Nallely Thomson MD LAB PATHOLOGY ORDERABLES Final Result PATHOLOGY [facility] [phone] documented in this encounter Visit Diagnoses Diagnosis [...] Hirsch RN)[id number] (New Bag - Provider: Marissa Hirshc RN)[id number] (Due: Stopped) PRN Medication Order 04/28/2024 [...] 04/30/2024 documented in this encounter Care Teams Wrist Liner Relationship Specialty Start Date End Date Corey Angel MD [address] INTERNAL MEDICINE [place] [id number] PCP - General Internal Medicine 06/18/21 documented as of this encounter
--- OUTSIDE RECORDS SUMMARY | 2024-09-30 12:41 | XMS_ITS | Encounter Summary ---
Author Organization [facility] Healthcare Address [address] [place] [address] Care Team Providers Care Doping Supervisor Name Role Phone Corey Hernández MD Primary Care Provider Johnson Falcon MD Unavailable Clem Thomson MD Unavailable Encounter Details Date Type Department Care Team (Late st Contact Info) Description 06/18/2024 Telephone [facility] Medical Office Building 2 Radiation Oncology [address] [place] [address] Lucila Allen Social History Tobacco Use [...] on file Legal Sex Male 2:49 AM UNIVERSITY PARTNERSHIP REP Gender Identity Male 05/22/2018 10:57 AM CDT Sexual Orientation Straight 11/03/2020 7: 01 PM UNIVERSITY PARTNERSHIP REP Occupation Industry Job Start Date Job End [...] Yes/No Date(s) Location(s) Biopsy performed? Yes 04/30/2024 [facility] Did you have a CT scan? No [...] on filedocumented in this encounter Care Teams Doping Supervisor Relationship Specialty Start Date End Date Corey Hernández MD [address] [facility] [address] [place] [address] PCP - General Internal Medicine 06/18/21 Johnson Falcon MD [address] [facility] [address] [place] [address] Radiation Oncologist Radiation Oncology 06/14/24 Clem Thomson MD [address] [facility] [address] [place] [address] Referring Physician Urology 06/14/24 documented as of this encounter
--- OUTSIDE RECORDS SUMMARY | 2024-09-30 12:41 | XMS_ITS | Encounter Summary ---
Author Organization [facility] Address [address] [place] [address] Phone Care Team Providers Care Client Architect Name Role Phone Corey Angel MD Primary Care Provider [phone] Encounter Details Date Type Department Care Team (Late st Contact Info) Description 05/02/2024 Telephone [facility] Urology [address] [facility] Medical Office Building [address] [place] [address] Tana Elizondo Social History Tobacco [...] on file Legal Sex Male 2: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 Will try to schedule 06/25/24, case sent to scheduling, case scheduled, letter sent, pt to call to schedule psma pet scan documented in this encounter Plan of Treatment Not on file documented as of this encounter Visit Diagnoses Not on filedocumented in this encounter Care Teams Client Architect Relationship Specialty Start Date End Date Corey Angel MD [address] [facility] [address] [place] [address] PCP - General Internal Medicine 06/18/21 documented as of this encounter
--- OUTSIDE RECORDS SUMMARY | 2024-09-30 12:41 | XMS_ITS | Encounter Summary ---
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
--- OUTSIDE RECORDS SUMMARY | 2024-09-30 12:41 | XMS_ITS | Encounter Summary ---
Author Organization [facility] Healthcare Address [address] [place] [address] Care Team Providers Care Group Controller Name Role Phone Corey Angel MD Primary Care Provider Reason for Visit * Auth/Cert (Routine) Specialty Diagnoses / Procedures Referred By Contac t Referred To Contact Diagnoses Elevated PSA Elevated PSA [R97.20] Procedures CO BX PROSTATE STRTCTC SATURATION SAMPLING IMG GID CHG US GUIDANCE NEEDLE PLACEMENT IMG S&I TRANSPERINEAL EXACT VU GUIDED PROSTATE BIOPSY BIOPSY PROSTATE - ULTRASOUND Referral ID Status Reason Start Date Expiration Date Visits Re quested Visits Authorized [id number] 1 1 Encounter Details Date Type Department Care Team (Late st Contact Info) Description 04/30/2024 11:20 AM CDT - 04/30/2024 12:25 PM CDT Surgery [facility] Operating Room [address] [place] [address] Nallely Thomson MD [address] [facility] [id number] [place] [address] TRANSPERINEAL EXACT VU GUIDED PROSTATE BIOPSY Surgery Details Date/Time Status Location OR Service Patient Class Case Cl ass Case Type Trauma Case? 04/30/2024 11:20 AM Posted [facility] OPERATING ROOM OR Urology Outpatient [...] on file Legal Sex Male 2:49 AM STONEMASON Gender Identity Male 05/22/2018 10:57 AM CDT Sexual Orientation Straight 11/03/2020 7: 01 PM STONEMASON Occupation Industry Job Start Date Job End [...] - Docusate/miralax as needed for constipation, available [id number] Pain Control: - Start by applying ice [...] PM: Please call the Urology office at [phone] with any questions or concerns and ask for a member of your doctor's team. For urgent matters after 5:00 PM during the week or on weekends or holidays, call [phone] and ask to have the Urology Forensics Analyst Physician paged for you. Follow up: Dr. Thomson will call you with the pathology results. You have received anesthesia, therefore, for the next 24 hours and/or while taking narcotic pain medication; -Do NOT drive a vehicle -Do NOT drink alcohol -Do NOT make important personal or business decisions or sign legal documents. Examples of narcotic pain medication include Percocet, Oxycontin, Newberry, Hydrocodone, and Oxycodone. FAQs (frequently asked questions) [...] physical therapy, we are available to assist: [facility] STAR: [facility] [phone] [place] [phone] [facility] [phone] How are some things that you can [...] given by your doctor or other health technical healthcare consultant. documented in this encounter Medications at Time [...] Preoperative Evaluation Record Evaluation type/location: TPAP from [facility] Planned procedure site: [facility] OR Date: 04/26/24 NOTE: This [...] - current AAA. Pertinent negatives: hypertension ; [place] ; CABG ; valvular heart disease; atrial [...] provided by telephone and electronically sent via WebEvents. Patient verbalized understanding of instructions. Blood bank [...] SURGERY : 04/30/2024 SURGEON: Nallely Thomson MD IT ASSISTANT: Surgeon(s) and Role: Surgeons and Role: * [...] Preoperative Assessment and Planning CPAP Clinic Location: [facility] The night before your surgery: [...] your family. * If having surgery at [facility], you may want to bring a credit card if you want to use our Mobile Pharmacy for your discharge medications. Mobile pharmacy is not available at [facility], the Orthopedic Center, or the [place] for [facility]. Outpatient Surgery: * You must have a [...] directive Information Provided on Healthcare Directives: No Communication/Heel Coverer Machine Operator Needs Communication Needs: Glasses Assistive Devices/DME: Eyeglasses Discharge Planning Type of Residence: Private residence Living Arrangements: Spouse/significant other Support Systems: Spouse/significant other Patient expects to be discharged to:: Private residence IRON AND STEEL WORK SUPERVISOR NO ADDITIONAL COMMENTS/ FOLLOW UP * Pre-Procedure [...] remove nail coverings, artificial nails and nail vincentian prior to the day of surgery. You should leave your valuables and any jewelry at home. No metal or piercings are allowed in the operating room. You should bring your insurance card, a photo ID (example: Rate Supervisor's License) and a method of payment for [...] Chart. If you are having surgery at [facility], please arrive on the day of surgery [...] Remove nail coverings, artificial nails and nail vincentian. Place clean linens on your bed the [...] questions, please call the CPAP Staff at [phone], Tuesday-Tuesday 8am-4:30pm. All patients should read the below section: Information on [facility] & the Orthopedic Center: Please view [email or web address] (Patient & Visitor Information) for additional details regarding Advanced Directive forms, AWARE, directions, parking information, lodging, Internet access, dining and more. Information on [facility] or [facility] ([facility]): Please view [email or web address] (Patient and Visitor Information) for parking/directions and more. For MyChart information, to activate account or password recovery, please go to [email or web address] or call [phone] (toll-free: [phone]), Tue- Tuesday 8am-5pm. Information for Suicide Prevention: National Suicide Prevention Lifeline (5-132- 497-TMAZ (0031)) or call or text 516. Chat resources: [employer]. Surgery Times: For patients having surgery @ [facility] or [facility] ([facility]), if your surgeon's office has not notified you of your surgery time by NOON THE BUSINESS DAY BEFORE your surgery, please call [phone] and ask for your surgeon's office The [...] results best viewed via link to PDF [facility] [place] [address] Note to Patients: This report may contain [...] Gender: ??M : ??1950 (Age: 73) Address: ??[address] [place] [address] ??[id number] Hospital #: ??[id number] Taken:04/30/2024 Received:04/30/2024 Reported: 05/01/2024 Patient Type: [facility] EP SAME Client ?[facility] Service: Surgery Location: Physician(s): ??Ze Larsen M.D. Diagnosis: A. Prostate, right, biopsy: ? - Prostatic adenocarcinoma, Anil score 3+4=7 (5% pattern 4), grade group 2, in two of four core(s), involving 60% of total core tissue ? B. Prostate, left, biopsy: ? - Prostatic adenocarcinoma, Taft score 3+4=7 (15% pattern 4), grade group [...] ordered molecular analysis. Materials were forwarded to [facility] where the Polaris Biopsy Test test will [...] The myChoice HRD test was performed by [employer] [address] [place] [address]. Microscopic slide review and interpretation for this case was performed at [facility], Department of Surgical Pathology, [address] [facility] Álvaro, [id number], ??[facility] [place], [place] ??[address] ?? CLIA # [id number] The performance characteristics of some immunohistochemical stains, fluorescence in-situ hybridization tests and immunophenotyping by flow cytometry cited in this report (if any) were determined by the Surgical Pathology and Flow Cytometry Departments at [facility] as part of an ongoing advanced quality engineer program and in compliance with federally mandated [...] Surgical Pathology and Flow Cytometry Departments of [facility]. ??It has not been cleared or approved by the U. S. Food and Drug Administration. IMAGES AND SCANNED DOCUMENTS, IF INCLUDED, ONLY VIEWABLE IN PDF VERSION OF REPORT Nallely Thomson MD LAB PATHOLOGY ORDERABLES Final Result PATHOLOGY [facility] [phone] documented in this encounter Visit Diagnoses Diagnosis [...] 04/30/2024 documented in this encounter Care Teams Group Controller Relationship Specialty Start Date End Date Corey Angel MD [address] INTERNAL MEDICINE [place] [id number] PCP - General Internal Medicine 06/18/21 documented as of this encounter
--- OUTSIDE RECORDS SUMMARY | 2024-09-30 12:41 | XMS_ITS | Encounter Summary ---
Author Organization [facility] Healthcare Address [address] [place] [address] Care Team Providers Care Improvement Rn Name Role Phone Corey Angel MD Primary Care Provider [phone] Reason for Visit * Auth/Cert (Routine) Specialty Diagnoses / Procedures Referred By Contac t Referred To Contact Diagnoses Elevated PSA Elevated PSA [R97.20] Procedures SC BX PROSTATE STRTCTC SATURATION SAMPLING IMG GID CHG US GUIDANCE NEEDLE PLACEMENT IMG S&I TRANSPERINEAL EXACT VU GUIDED PROSTATE BIOPSY BIOPSY PROSTATE - ULTRASOUND Referral ID Status Reason Start Date Expiration Date Visits Re quested Visits Authorized [id number] 1 1 Encounter Details Date Type Department Care Team (Late st Contact Info) Description 04/30/2024 10:13 AM CDT Anesthesia Event [facility] Operating Room [address] [place] [address] Yvonne Gao MD [address] [place] [address] Emmy Garcia MD [address] [place] [address] Anesthesia Record Procedure Summary Procedure Name Responsible [...] 1034; Perineum; 08/28/24 (Retired LDA, Removed/Completed by [employer]ialpoint with LDA Utility); 1213 (Retired LDA, Removed/Completed by [employer] with LDA Utility) 04/30/24 1034 by Key [...] on file Legal Sex Male 2:49 AM PRODUCT CONTROLLER Gender Identity Male 05/22/2018 10:57 AM CDT Sexual Orientation Straight 11/03/2020 7: 01 PM PRODUCT CONTROLLER Occupation Industry Job Start Date Job End Date working Not on file Not on file Not on file documented as of this encounter OR Notes * Anesthesia Postprocedure Evaluation - Yvonne Gao MD - 04/30/2024 11:02 AM CDT Patient: Clem Capellan Procedure Summary Date: 04/30/24 Room / Location: [facility] OPERATING ROOM 02 / [facility] OPERATING ROOM Anesthesia Start: 1013 Anesthesia [...] Preoperative Evaluation Record Evaluation type/location: TPAP from [facility] Planned procedure site: [facility] OR Date: 04/26/24 NOTE: This note [...] - current AAA. Pertinent negatives: hypertension ; [place] ; CABG ; valvular heart disease; atrial [...] provided by telephone and electronically sent via [employer]. Patient verbalized understanding of instructions. Blood bank needs for day of procedure: No type and screen needed Pending labs/tests include: None TPAP complete. Preoperative evaluation performed by Gianna Mckenzie NP on 04/26/24 at 12:02 PM . Patient Active Problem List Diagnosis Date Noted Elevated PSA 12/19/2023 Ascending aortic aneurysm (HCC) 06/19/2021 Squamous cell carcinoma of skin of left muslim - Left 05/30/2018 Knee pain 04/22/2016 Past [...] Medication protocol when under care of a HELICOPTER OFFICER Planned anesthesia: MAC Informed Consent: Anesthesia plan [...] mg documented in this encounter Care Teams Improvement Rn Relationship Specialty Start Date End Date Corey Angel MD [address] [place] [address] PCP - General Internal Medicine 06/18/21 documented as of this encounter
--- OUTSIDE RECORDS SUMMARY | 2024-09-30 12:41 | XMS_ITS | Encounter Summary ---
Author Organization [facility] Healthcare Address [address] [place] [address] Care Team Providers Care Snipper Name Role Phone Corey Angel MD Primary Care Provider Johnson Falcon MD Unavailable [phone] Clem Thomson MD Unavailable Encounter Details Date Type Department Care Team (Late st Contact Info) Description 06/14/2024 Orders Only [facility] Radiation Oncology [address] [place] [address] [phone] Johnson Falcon MD [address] [facility] [address] [place] [address] Prostate cancer (HCC) (Primary Dx) [...] on file Legal Sex Male 2:49 AM TOY DEPARTMENT MANAGER Gender Identity Male 05/22/2018 10:57 AM CDT Sexual Orientation Straight 11/03/2020 7: 01 PM TOY DEPARTMENT MANAGER Occupation Industry Job Start Date Job [...] LAB BLOOD ORDERABLES Final Result SHILPA BRITTON [address] [facility] [place] [address] * (ABNORMAL) Total testosterone (06/15/2024 3:04 PM CDT) Pathologist [facility] Testosterone 101(L) 193 - 740 ng/dL Blood 06/15/2024 3:04 PM CDT 06/15/2024 8:15 PM CDT Johnson Falcon MD LAB BLOOD ORDERABLES Final Result Performing Organization Address City/[facility] de Phone Number SHILPA BRITTON [address] [address] [place] [address] * (ABNORMAL) CBC with auto differential (06/15/2024 3:04 PM CDT) [facility] WBC 6.8 3.8 - 9.9 K/cumm Hgb 13.3 13.0 - 17.5 g/dL [facility] Hct 41.6 38.9 - 50.3 % [facility] Plt 191 150 - 400 K/cumm [facility] MPV 11.8 9.1 - 12.3 fL [facility] RBC 4.58 4.30 - 5.80 M/cumm [facility] MCV 90.8 81.3 - 96.4 fL [facility] MCH 29.0 27.1 - 33.3 pg [facility] MCHC 32.0(L) 32.3 - 35.7 g/dL [facility] RDW CV 13.2 11.1 - 14.9 % [facility] CH RDW SD 43.8 35.7 - 48.1 fL [facility] NRBC abs 0.00 0.00 - 0.01 K/cumm [facility] CH Blood 06/15/2024 3:04 PM CDT 06/15/2024 8:15 PM CDT Johnson Falcon MD LAB BLOOD ORDERABLES Final Result SHILPA [address] Department [place] [address] * (ABNORMAL) Comprehensive metabolic panel [...] LAB BLOOD ORDERABLES Final Result [facility]IL[facility] [place]TON [address] Department [place] [address] documented in this encounter Visit Diagnoses Diagnosis Prostate cancer (HCC)- Primary Malignant neoplasm of prostate documented in this encounter Care Teams Snipper Relationship Specialty Start Date End Date Corey Angel MD [address] [place] [address] PCP - General Internal Medicine 06/18/21 Johnson Falcon MD [address] [facility] [address] [place] [address] Radiation Oncologist Radiation Oncology 06/14/24 Clem Thomson MD [address] [facility] [address] [place] [address] Referring Physician Urology 06/14/24 documented as of this encounter
--- OUTSIDE RECORDS SUMMARY | 2024-09-30 12:42 | XMS_ITS | Encounter Summary ---
Author Organization [facility] Healthcare Address [address] [place] [address] Care Team Providers Care Cna Per Diem Name Role Phone Corey Angel MD Primary Care Provider [phone] Reason for Referral * MRI/CAT/PET Scan (Routine) - Closed Specialty Diagnoses / Procedures Referred By Contac t Referred To Contact Radiology Diagnoses Aneurysm of ascending aorta without rupture (HCC) Procedures CTA Chest W Contrast Eusebia Coleman MD [address] [facility] [id number] [place] [address] Phone: tel: fax: [address] [address] Referral ID Status Reason Start Date Expiration Date Visits Re quested Visits Authorized [id number] Closed 06/30/2022 07/30/2023 1 1 PUNCH AND COILER OPERATOR HELPER Reason for Visit * MRI/CAT/PET Scan (Routine) - Closed Specialty Diagnoses / Procedures Referred By Contac t Referred To Contact Radiology Diagnoses Aneurysm of ascending aorta without rupture (HCC) Procedures CTA Chest W Contrast Eusebia Coleman MD [address] [facility] [address] [place] [address] Phone: tel: fax: [address] [phone] Referral ID Status Reason Start Date Expiration Date Visits Re quested Visits Authorized [id number] Closed 06/30/2022 07/30/2023 1 1 Encounter Details Date Type Department Care Team (Latest Contact Info) Description 08/04/2022 9:40 AM HOOP PUNCH AND COILER OPERATOR HELPER - 08/04/2022 11:59 PM HOOP PUNCH AND COILER OPERATOR HELPER Hospital Encounter [facility] [address] [address] Aneurysm of ascending aorta without rupture Discharge Disposition: Discharge to home or self care Social History Tobacco Use Types Packs/Day Years Used Date Smoking Tobacco: Never Smokeless Tobacco: Never Alcohol Use Standard Drinks/Week Comments No 0 (1 standard drink = 0.6 oz pur e alcohol) Sex and Gender Information Value Date Recorded Sex Assigned at Not on file Legal Sex Male 2:49 AM HOOP PUNCH AND COILER OPERATOR HELPER Gender Identity Male 05/22/2018 10:57 AM CDT Sexual Orientation Straight 11/03/2020 7: 01 PM HOOP PUNCH AND COILER OPERATOR HELPER Occupation Industry Job Start Date Job [...] Read Routine (OP Routine) 08/04/2022 10:18 AM HOOP PUNCH AND COILER OPERATOR HELPER Aneurysm of ascending aorta without rupture POC ISTAT Routine 08/04/2022 10:12 AM HOOP PUNCH AND COILER OPERATOR HELPER documented in this encounter Results * CTA Chest W Contrast (08/04/2022 10:18 AM HOOP PUNCH AND COILER OPERATOR HELPER) Anatomical Region Laterality Modality Chest N/A Computed Tomogra phy 08/04/2022 11:2 9 AM HOOP PUNCH AND COILER OPERATOR HELPER Impressions 08/04/2022 2:14 PM HOOP PUNCH AND COILER OPERATOR HELPER Stable dilation of the thoracic aorta with measurements detailed above. Dictated by: Sukhdeep Ozuna M.D. The radiology attending physician has personally reviewed this study, and had reviewed and/or edited this written report and agrees with it. Electronically signed by: Yoana Martinez M.D. Narrative 08/04/2022 2:14 PM HOOP PUNCH AND COILER OPERATOR HELPER EXAMINATION: CTA CHEST W CONTRAST HISTORY: 71-year-old [...] Result * POC ISTAT (08/04/2022 10:12 AM HOOP PUNCH AND COILER OPERATOR HELPER) Creatinine, POC, bld 0.7 0.6 - 1.3 mg/dL [facility]I Comment: Interpretive data Creatinine <1.5 mg/dL and stable receive IV contrast. Creatinine 1.5-1.9 mg/dL and stable use Visipaque IV contrast. Current interpretive data last reviewed 2015. POC Device Number [id number] [facility] POC Performer [id number] [facility] CALI Blood 08/04/2022 10:1 2 AM HOOP PUNCH AND COILER OPERATOR HELPER 08/04/2022 10:12 AM HOOP PUNCH AND COILER OPERATOR HELPER us Eusebia Coleman MD LAB BLOOD ORDERABLES Final Resul t SHILPA [facility]ULETACH [address] [facility]. Department [place] [address] documented in this encounter Visit Diagnoses Diagnosis [...] 1 dose Contrast Given 08/04/2022 10:14 AM HOOP PUNCH AND COILER OPERATOR HELPER 100 mL documented in this encounter Orders Medications Ordered That Gumaro ht Not Have Been Administered Count Last Ordered Date First Ordered Date ioversoL (OPTIRAY 350) syringe 100 mL 1 05/2022 documented in this encounter Care Teams Cna Per Diem Relationship Specialty Start Date End Date Corey Angel MD [address] [place] [address] PCP - General Internal Medicine 06/18/21 documented as of this encounter
--- OUTSIDE RECORDS SUMMARY | 2024-09-30 12:42 | XMS_ITS | Encounter Summary ---
Author Organization [facility] Address [address] [place] [address] Phone Care Team Providers Care Devulcanizer Loader Name Role Phone Corey Angel MD Primary Care Provider [phone] Reason for Visit * Consultation (Routine) - Closed Specialty Diagnoses / Procedures Referred By Hoang t Referred To Contact Cardiothoracic Surgery Diagnoses Aortic root enlargement (CMS/HCC) (HCC) Corey Angel MD [address] [place] [address] Phone: tel: fax: Jonnie Castrejon MD Phone: tel: fax: Referral ID Status Reason Start Date Expiration Date V isits Requested Visits Authorized [id number] Closed Specialty Services Required 05/14/2021 06/13/2022 1 1 Encounter Details Date Type Department Care Team (Late st Contact Info) Description 06/18/2021 10:30 AM CDT Office Visit [facility] Surgery [address] [facility] Advanced Medicine 8th [place] [address] [place] [id number] Vinicio Romo MD [address] [place] [address] Aortic root enlargement (CMS/HCC) (HCC) Social History Tobacco Use Types Packs/Day Years Used Date Smoking Tobacco: Never Smokeless Tobacco: Never Alcohol Use Standard Drinks/Week Comments No 0 (1 standard drink = 0.6 oz pur e alcohol) Sex and Gender Information Value Date Recorded Sex Assigned at Not on file Legal Sex Male 2:49 AM C WEB DEVELOPER Gender Identity Male 05/22/2018 10:57 AM CDT Sexual Orientation Straight 11/03/2020 7: 01 PM C WEB DEVELOPER Occupation Industry Job Start Date Job [...] Body Mass Index 38.32 08/30/2018 1:17 PM C WEB DEVELOPER documented in this encounter Progress Notes * [...] is warranted for aneurysm. PMHX: no DM, [place], COPD, renal disease, CVA PSHx: skin CA [...] [facility] in [place] documented in this encounter Plan of Treatment [...] 1 documented in this encounter Care Teams Devulcanizer Loader Relationship Specialty Start Date End Date Corey Angel MD [address] [place] [address] PCP - General Internal Medicine 06/18/21 documented as of this encounter
--- OUTSIDE RECORDS SUMMARY | 2024-09-30 12:42 | XMS_ITS | Encounter Summary ---
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 Patient has no [...] or as previously scheduled, with their general compensation analyst. Sunscreen use, self-monitoring, and sun protection tips [...] Squamous cell carcinoma of skin of left druze - Left- Primary documented in this encounter Care Teams Guest Room Attendant Relationship Specialty Start Date End Date James Ospina MD [address] [place] [address] PCP - General Endocrinology Diabetes & Metabolism 05/22/18 06/17/21 documented as of this encounter
--- OUTSIDE RECORDS SUMMARY | 2024-09-30 12:42 | XMS_ITS | Encounter Summary ---
Author Organization [facility] Address [address] [place] [address] Phone Care Team Providers Care Director Sales Support Name Role Phone Corey Angel MD Primary Care Provider [phone] Reason for Referral * MRI/CAT/PET Scan (Routine) - Closed Specialty Diagnoses / Procedures Referred By Contac t Referred To Contact Radiology Diagnoses Aneurysm of ascending aorta without rupture (HCC) Procedures CTA Chest W Contrast Eusebia Coleman MD [address] [facility] [address] [place] [address] Phone: tel: fax: [address] [address] Referral ID Status Reason Start Date Expiration Date Visits Re quested Visits Authorized [id number] Closed 04/18/2024 06/17/2024 1 1 Encounter Details Date Type Department Care Team (Late st Contact Info) Description 02/23/2024 Orders Only [facility] Cardiothoracic Surgery [address] [facility] Advanced Medicine 8th Floor [address] Room [address] [address] Eusebia Coleman MD [address] [facility] [address] [place] [address] Aneurysm of ascending aorta without [...] on file Legal Sex Male 2:49 AM TYPING BOOKKEEPER Gender Identity Male 05/22/2018 10:57 AM CDT Sexual Orientation Straight 11/03/2020 7: 01 PM TYPING BOOKKEEPER Occupation Industry Job Start Date Job End [...] (HCC) documented in this encounter Care Teams Director Sales Support Relationship Specialty Start Date End Date Corey Angel MD [address] [facility] [address] INTERNAL MEDICINE [place], [place] [id number] PCP - General Internal Medicine 06/18/21 documented as of this encounter
--- OUTSIDE RECORDS SUMMARY | 2024-09-30 12:42 | XMS_ITS | Encounter Summary ---
Author Organization [facility] Address [address] [facility] [address] [place] [address] Phone Care Team Providers Care Commercial Construction Estimator Name Role Phone Corey Angel MD Primary Care Provider [phone] Reason for Visit * Reason Comments Establish Care Encounter Details Date Type Department Care Team (Late st Contact Info) Description 08/04/2022 10:30 AM ARCHITECTURAL REPRESENTATIVE Office Visit [facility] [address] [place] [address] Eusebia Coleman MD [address] [facility] [address] [place] [address] Aneurysm of ascending aorta without [...] on file Legal Sex Male 2:49 AM ARCHITECTURAL REPRESENTATIVE Gender Identity Male 05/22/2018 10:57 AM CDT Sexual Orientation Straight 11/03/2020 7: 01 PM ARCHITECTURAL REPRESENTATIVE Occupation Industry Job Start Date Job End Date working Not on file Not on file Not on file documented as of this encounter Last Filed Vital Signs Vital Sign Reading Time Taken Comments Blood Pressure 152/104 08/04/2022 10:32 AM ARCHITECTURAL REPRESENTATIVE Pulse 106 08/04/2022 10:32 AM ARCHITECTURAL REPRESENTATIVE Temperature - - Respiratory Rate - - Oxygen Saturation 97% 08/04/2022 10:32 AM ARCHITECTURAL REPRESENTATIVE Inhaled Oxygen Concentration - - Weight 125.6 kg (277 lb) 08/04/2022 10:32 AM ARCHITECTURAL REPRESENTATIVE Height 180.3 cm (5' 11 ) 08/04/2022 10:32 AM ARCHITECTURAL REPRESENTATIVE Body Mass Index 38.63 08/04/2022 10:32 AM ARCHITECTURAL REPRESENTATIVE documented in this encounter Progress Notes * Tameka Mixon NP - 08/04/2022 10:30 AM CST Name: Clem Capellan : 1950 Date: 08/04/2022 Requesting Gear Grinder: Corey Angel MD PCP: Corey Angel MD [...] continue to monitor and discuss with his digital marketing executive about a beta ana.We will schedule him to return in [address]He understands to call our office if any changes in the interim. With my best regards, Tameka Mixon, MSN,ANP- Adult Nurse Practitioner [facility] Division of Cardiothoracic Surgery Cosigned by Eusebia Coleman MD at 08/04/2022 3:33 PM ARCHITECTURAL REPRESENTATIVE ITECTURAL REPRESENTATIVE ITECTURAL REPRESENTATIVE documented in this encounter Plan of Treatment Not on file documented as of this encounter Visit Diagnoses Diagnosis Aneurysm of ascending aorta without rupture (HCC)- Primary documented in this encounter Historical Medications * This list may reflect changes made after this encounter. cholecalciferol 400 unit capsuleIndication s:supplement Take 600 Units by mouth every morning added in this encounter Care Teams Commercial Construction Estimator Relationship Specialty Start Date End Date Corey Angel MD [address] [facility] 209 INTERNAL MEDICINE [place], [place] [id number] PCP - General Internal Medicine 06/18/21 documented as of this encounter
--- OUTSIDE RECORDS SUMMARY | 2024-09-30 12:42 | XMS_ITS | Encounter Summary ---
Author Organization [facility] Address [address] [facility] [address] [place] [address] Care Team Providers Care Upper Cutter Machine Name Role Phone James Ospina MD Primary Care Provider [phone] Corey Angel MD Primary Care Provider [phone] Encounter Details Date Type Department Care Team (Late st Contact Info) Description 04/27/2021 Telephone [facility] Cardiology [address] [facility] 162 [facility] 102 [place] [address] Mauro Reilly MD [address] [facility] [address] [place] [address] Social History Tobacco Use Types Packs/Day Years Used Date Smoking Tobacco: Never Smokeless Tobacco: Never Alcohol Use Standard Drinks/Week Comments No 0 (1 standard drink = 0.6 oz pur e alcohol) Sex and Gender Information Value Date Recorded Sex Assigned at Not on file Legal Sex Male 2:49 AM PEWTER FABRICATOR Gender Identity Male 05/22/2018 10:57 AM CDT Sexual Orientation Straight 11/03/2020 7: 01 PM PEWTER FABRICATOR Occupation Industry Job Start Date Job End Date working Not on file Not on file Not on file documented as of this encounter Plan of Treatment Not on file documented as of this encounter Visit Diagnoses Not on filedocumented in this encounter Care Teams Upper Cutter Machine Relationship Specialty Start Date End Date James Ospina MD [address] [facility] [address] [place] [address] PCP - General Endocrinology Diabetes & Metabolism 05/22/18 06/17/21 Corey nAgel MD [address] [facility] [address] [facility] 209 [place] [address] PCP - General Internal Medicine 06/18/21 documented as of this encounter
--- OUTSIDE RECORDS SUMMARY | 2024-09-30 12:42 | XMS_ITS | Encounter Summary ---
Author Organization [facility] Address [address] [facility] [address] [place] [address] Care Team Providers Care Administrative Nursing Supervisor Name Role Phone James Ospina MD Primary Care Provider [phone] Encounter Details Date Type Department Care Team (Late st Contact Info) Description 05/18/2021 Orders Only [facility] Cardiology [address] [facility] [address] [place] [address] Sushant Madison MD [facility]5 [place] [id number] Social History Tobacco Use Types Packs/Day Years Used Date Smoking Tobacco: Never Smokeless Tobacco: Never Alcohol Use Standard Drinks/Week Comments No 0 (1 standard drink = 0.6 oz pur e alcohol) Sex and Gender Information Value Date Recorded Sex Assigned at Not on file Legal Sex Male 2:49 AM FOLLOW UP MANAGER Gender Identity Male 05/22/2018 10:57 AM CDT Sexual Orientation Straight 11/03/2020 7: 01 PM FOLLOW UP MANAGER Occupation Industry Job Start Date Job [...] us Sushant Madison MD [facility] Final Result documented in this encounter Visit Diagnoses Not on filedocumented in this encounter Care Teams Administrative Nursing Supervisor Relationship Specialty Start Date End Date James Ospina MD [address] [address] PCP - General Endocrinology Diabetes & Metabolism 05/22/18 06/17/21 documented as of this encounter
--- OUTSIDE RECORDS SUMMARY | 2024-09-30 12:42 | XMS_ITS | Encounter Summary ---
Author Organization [facility] Address [address] [facility] [address] [place] [address] Phone Care Team Providers Care Recycling Center Operator Name Role Phone Corey Angel MD Primary Care Provider [phone] Encounter Details Date Type Department Care Team (Late st Contact Info) Description 07/30/2022 Telephone [facility] Surgery [address] [facility] Advanced [facility] 8th [place] [address] [place] [address] Eusebia Coleman MD [address] [facility] [address] [place] [address] Social History Tobacco Use Types Packs/Day Years Used Date Smoking Tobacco: Never Smokeless Tobacco: Never Alcohol Use Standard Drinks/Week Comments No 0 (1 standard drink = 0.6 oz pur e alcohol) Sex and Gender Information Value Date Recorded Sex Assigned at Not on file Legal Sex Male 2:49 AM HUMAN RESOURCES INTERN Gender Identity Male 05/22/2018 10:57 AM CDT Sexual Orientation Straight 11/03/2020 7: 01 PM HUMAN RESOURCES INTERN Occupation Industry Job Start Date Job End Date working Not on file Not on file Not on file documented as of this encounter Miscellaneous Notes * Telephone Encounter - Deborah Zuluaga - 07/30/2022 11:54 AM CDT Having a chest CTA next week. Does he need to stop his iron supplement prior to his procedure? Thanks documented in this encounter Plan of Treatment Not on file documented as of this encounter Visit Diagnoses Not on filedocumented in this encounter Care Teams Recycling Center Operator Relationship Specialty Start Date End Date Corey Angel MD [address] [facility] [address] INTERNAL MEDICINE [place] [id number] PCP - General Internal Medicine 06/18/21 documented as of this encounter
--- OUTSIDE RECORDS SUMMARY | 2024-09-30 12:42 | XMS_ITS | Encounter Summary ---
Author Organization [facility] Address [address] [facility] [address] [place] [address] Phone Care Team Providers Care Neuroscientist Name Role Phone Corey Angel MD Primary Care Provider [phone] Encounter Details Date Type Department Care Team (Late st Contact Info) Description 02/23/2024 Orders Only [facility] Cardiothoracic Surgery [address] [facility] Advanced Medicine 8th Floor [address] Room [address] [address] Eusebia Coleman MD [address] [facility] [address] [place] [address] Aneurysm of ascending aorta without [...] on file Legal Sex Male 2:49 AM DETECTIVE CHIEF Gender Identity Male 05/22/2018 10:57 AM CDT Sexual Orientation Straight 11/03/2020 7: 01 PM DETECTIVE CHIEF Occupation Industry Job Start Date Job End Date working Not on file Not on file Not on file documented as of this encounter Plan of Treatment Not on file documented as of this encounter Visit Diagnoses Diagnosis Aneurysm of ascending aorta without rupture (HCC)- Primary documented in this encounter Care Teams Neuroscientist Relationship Specialty Start Date End Date Corey Angel MD [address] [place] [address] PCP - General Internal Medicine 06/18/21 documented as of this encounter
--- OUTSIDE RECORDS SUMMARY | 2024-09-30 12:42 | XMS_ITS | Encounter Summary ---
Author Organization [facility] Address [address] [place] [address] Phone Care Team Providers Care Software Engineering Analyst Name Role Phone Corey Angel MD Primary Care Provider [phone] Reason for Visit * Reason Comments Elevated PSA * Consultation (Routine) - Authorized Specialty Diagnoses / Procedures Referred By Contac t Referred To Contact Urology Diagnoses Elevated PSA Corey Angel MD [address] [place] [address] Phone: tel: fax: [facility] (All Locations) Referral ID Status Reason Start Date Expiration Date Visits Requested Visits Authorized [id number] Authorized Specialty Services Required 11/09/2023 11/11/2024 99 99 Encounter Details Date Type Department Care Team (Late st Contact Info) Description 12/02/2023 11:00 AM FRONT LINE SUPERVISOR Office Visit [facility] Urology [address] [facility] Medical Office Building [address] [place] [address] Clem Thomson MD [address] [facility] [phone] [place] [address] Elevated PSA (Primary Dx) Social [...] on file Legal Sex Male 2:49 AM FRONT LINE SUPERVISOR Gender Identity Male 05/22/2018 10:57 AM CDT Sexual Orientation Straight 11/03/2020 7: 01 PM FRONT LINE SUPERVISOR Occupation Industry Job Start Date Job End Date working Not on file Not on file Not on file documented as of this encounter Last Filed Vital Signs Vital Sign Reading Time Taken Comments Blood Pressure 130/84 12/02/2023 11:21 AM FRONT LINE SUPERVISOR Pulse 91 12/02/2023 11:21 AM FRONT LINE SUPERVISOR Temperature - - Respiratory Rate - - Oxygen Saturation - - Inhaled Oxygen Concentration - - Weight 111.1 kg (245 lb) 12/02/2023 11:21 AM FRONT LINE SUPERVISOR Height 182.9 cm (6') 12/02/2023 11:21 AM FRONT LINE SUPERVISOR Body Mass Index 33.23 12/02/2023 11:21 AM FRONT LINE SUPERVISOR documented in this encounter Progress Notes * [...] have agreed on sending a 4K test. T LINE SUPERVISOR documented in this encounter Plan of [...] 12/02/2023 documented in this encounter Care Teams Software Engineering Analyst Relationship Specialty Start Date End Date Corey Angel MD [address] [facility] [address] [facility] [address] [place] [address] PCP - General Internal Medicine 06/18/21 documented as of this encounter
--- OUTSIDE RECORDS SUMMARY | 2024-09-30 12:42 | XMS_ITS | Encounter Summary ---
Author Organization [facility] Address [address] [place] [address] Care Team Providers Care Special Services Supervisor Name Role Phone James Ospina MD Primary Care Provider [phone] Reason for Referral * Diagnostic Imaging (Routine) - Closed Specialty Diagnoses / Procedures Referred By Contac t Referred To Contact Diagnoses Right knee pain, unspecified chronicity Procedures XR Knee Right 3 Views Suleiman Hamilton PA Phone: tel: fax: [facility] [address] Referral ID Status Reason Start Date Expiration Date Visits Re quested Visits Authorized [id number] Closed 08/28/2018 03/08/2020 1 1 IAL EFFECTS DESIGNER Reason for Visit * Diagnostic Imaging (Routine) - Closed Specialty Diagnoses / Procedures Referred By Contac t Referred To Contact Diagnoses Right knee pain, unspecified chronicity Procedures XR Knee Right 3 Views Suleiman Hamilton PA Phone: tel: fax: [facility] [address] Referral ID Status Reason Start Date Expiration Date Visits Re quested Visits Authorized [id number] Closed 08/28/2018 03/08/2020 1 1 Encounter Details Date Type Department Care Team (Latest Contact Info) Description 08/30/2018 12:44 PM SPECIAL EFFECTS DESIGNER - 08/30/2018 11:59 PM SPECIAL EFFECTS DESIGNER Hospital Encounter [facility] - Count includes the [facility] [address] [place] [address] [address] [place] [address] Suleiman Hamilton PA [address] [place] [address] Iván Cunningham MD [address] [place] [address] Right knee pain, unspecified chronicity Discharge Disposition: Discharge to home or self care Social History Tobacco Use Types Packs/Day Years Used Date Smoking Tobacco: Never Smokeless Tobacco: Never Alcohol Use Standard Drinks/Week Comments No 0 (1 standard drink = 0.6 oz pur e alcohol) Sex and Gender Information Value Date Recorded Sex Assigned at Not on file Legal Sex Male 2:49 AM SPECIAL EFFECTS DESIGNER Gender Identity Male 05/22/2018 10:57 AM CDT Sexual Orientation Straight 11/03/2020 7: 01 PM SPECIAL EFFECTS DESIGNER Occupation Industry Job Start Date Job [...] Read Routine (OP Routine) 08/30/2018 12:58 PM SPECIAL EFFECTS DESIGNER Right knee pain, unspecified chronicity documented in this encounter Results * XR Knee Right 3 Views (08/30/2018 12:58 PM SPECIAL EFFECTS DESIGNER) Anatomical Region Laterality Modality Lower Extremities, Knee Right Computed Radiography 08/30/2018 1:28 PM SPECIAL EFFECTS DESIGNER Impressions 08/30/2018 1:28 PM SPECIAL EFFECTS DESIGNER Unchanged mild right knee osteoarthritis with a new small effusion. Electronically signed by: Jamse Cunningham M.D. Narrative 08/30/2018 1:28 PM SPECIAL EFFECTS DESIGNER EXAMINATION: Right knee, 3 views HISTORY: ??Right [...] chronicity documented in this encounter Care Teams Special Services Supervisor Relationship Specialty Start Date End Date James Ospina MD [address] [facility] [address] [place] [address] PCP - General Endocrinology Diabetes & Metabolism 05/22/18 06/17/21 documented as of this encounter
--- OUTSIDE RECORDS SUMMARY | 2024-09-30 12:42 | XMS_ITS | Encounter Summary ---
Author Organization [facility] Address [address] [place] [address] Phone Care Team Providers Care Garnett Room Worker Name Role Phone James Ospina MD Primary Care Provider [phone] Encounter Details Date Type Department Care Team (Late st Contact Info) Description 05/03/2018 Orders Only [facility] DERMATOLOGY Scanning, Provider Social History Tobacco Use Types Packs/Day Years Used Date Smoking Tobacco: Never Assessed Sex and Gender Information Value Date Recorded Sex Assigned at Not on file Legal Sex Male 2:49 AM HYDROELECTRIC STATION CHIEF Gender Identity Male 05/22/2018 10:57 AM CDT Sexual Orientation Straight 11/03/2020 7: 01 PM HYDROELECTRIC STATION CHIEF documented as of this encounter Plan of Treatment Not on file documented as of this encounter Procedures Procedure Name Priority Date/Time Associated Diagnosis Comments SCAN - PATHOLOGY 05/03/2018 documented in this encounter Results * SCAN - PATHOLOGY (05/03/2018) us Provider Scanning Final Result documented in this encounter Visit Diagnoses Not on filedocumented in this encounter Care Teams Garnett Room Worker Relationship Specialty Start Date End Date James Ospina MD [address] [facility] [address] [place] [address] PCP - General Endocrinology Diabetes & Metabolism 05/22/18 06/17/21 documented as of this encounter
--- OUTSIDE RECORDS SUMMARY | 2024-09-30 12:42 | XMS_ITS | Encounter Summary ---
Author Organization [facility] Healthcare Address [address] [place] [address] Care Team Providers Care Credentialing Coordinator Name Role Phone James Ospina MD Primary Care Provider [phone] Encounter Details Date Type Department Care Team (Late st Contact Info) Description 06/11/2018 Telephone [facility] 1 [place] [address] Therese Alba MD [address] [facility] [address] [place] [address] Social History Tobacco Use Types Packs/Day Years Used Date Smoking Tobacco: Never Smokeless Tobacco: Never Sex and Gender Information Value Date Recorded Sex Assigned at Not on file Legal Sex Male 2:49 AM BIOINFORMATICS ENGINEER Gender Identity Male 05/22/2018 10:57 AM CDT Sexual Orientation Straight 11/03/2020 7: 01 PM BIOINFORMATICS ENGINEER documented as of this encounter Miscellaneous Notes * Telephone Encounter - Magalie Erickson MD - 06/13/2018 5:20 PM CDT I agree with the plan of care as discussed with the resident.. and I have reviewed the resident's note. * Telephone Encounter - Therese Alba MD - 06/11/2018 5:13 PM CDT 67 y/o WM s/p mohs surgery for SCC on the L worship healing by 2nd intention performed 06/09. The [...] on filedocumented in this encounter Care Teams Credentialing Coordinator Relationship Specialty Start Date End Date James Ospina MD [address] [address] PCP - General Endocrinology Diabetes & Metabolism 05/22/18 06/17/21 documented as of this encounter
--- OUTSIDE RECORDS SUMMARY | 2024-09-30 12:42 | XMS_ITS | Encounter Summary ---
Author Organization [facility] Address [address] [facility] [address] [place] [address] Phone Care Team Providers Care Assessment Coordinator Name Role Phone Corey Angel MD Primary Care Provider [phone] Encounter Details Date Type Department Care Team (Late st Contact Info) Description 02/02/2023 Orders Only [facility] Surgery [address] [facility] Advanced Medicine 8th [place] [address] [place] [address] Eusebia Coleman MD [address] [facility] [address] [place] [address] Aneurysm of ascending aorta without rupture (HCC) (Primary Dx) Social History Tobacco Use Types Packs/Day Years Used Date Smoking Tobacco: Never Smokeless Tobacco: Never Alcohol Use Standard Drinks/Week Comments No 0 (1 standard drink = 0.6 oz pur e alcohol) Sex and Gender Information Value Date Recorded Sex Assigned at Not on file Legal Sex Male 2:49 AM DEVIL DOG Gender Identity Male 05/22/2018 10:57 AM CDT Sexual Orientation Straight 11/03/2020 7: 01 PM DEVIL DOG Occupation Industry Job Start Date Job End Date working Not on file Not on file Not on file documented as of this encounter Plan of Treatment Not on file documented as of this encounter Visit Diagnoses Diagnosis Aneurysm of ascending aorta without rupture (HCC)- Primary documented in this encounter Care Teams Assessment Coordinator Relationship Specialty Start Date End Date Corey Angel MD [address] [facility] [address] INTERNAL MEDICINE [place] [id number] PCP - General Internal Medicine 06/18/21 documented as of this encounter
--- OUTSIDE RECORDS SUMMARY | 2024-09-30 12:42 | XMS_ITS | Encounter Summary ---
Author Organization [facility] Healthcare Address [address] [place] [address] Care Team Providers Care Bus Assistant Name Role Phone Corey Angel MD Primary Care Provider [phone] Encounter Details Date Type Department Care Team (Latest Contact Info) Description 07/15/2022 12:23 PM CDT - 07/15/2022 12:24 PM CDT Hospital Encounter [facility] [address] [place] [address] Discharge Disposition: Discharge to home or self care Social History Tobacco Use Types Packs/Day Years Used Date Smoking Tobacco: Never Smokeless Tobacco: Never Alcohol Use Standard Drinks/Week Comments No 0 (1 standard drink = 0.6 oz pur e alcohol) Sex and Gender Information Value Date Recorded Sex Assigned at Not on file Legal Sex Male 2:49 AM FOREIGN CLERK Gender Identity Male 05/22/2018 10:57 AM CDT Sexual Orientation Straight 11/03/2020 7: 01 PM FOREIGN CLERK Occupation Industry Job Start Date Job [...] only and have not been reviewed by [facility] Radiology. ??There will be no report generated by a [facility] Radiologist. Narrative [facility]_P[facility] - 07/15/2022 12:23 PM CDT EXAMINATION: ??Images For Reference Purposes Only us Eusebia Coleman MD IMG CT PROCEDURES Final Result [facility] documented in this encounter Visit Diagnoses Not on filedocumented in this encounter Care Teams Bus Assistant Relationship Specialty Start Date End Date Corey Angel MD [address] [place] [address] PCP - General Internal Medicine 06/18/21 documented as of this encounter
--- OUTSIDE RECORDS SUMMARY | 2024-09-30 12:42 | XMS_ITS | Encounter Summary ---
Author Organization [facility] Address [address] [place] [address] Phone Care Team Providers Care Bacteriology Teacher Name Role Phone James Ospina MD Primary Care Provider [phone] Reason for Visit * Reason Comments Mohs Procedure Encounter Details Date Type Department Care Team (Latest Contact Info) Description 06/09/2018 9:30 AM CDT Procedure visit [facility] Dermatology [address] 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) Social History Tobacco Use Types Packs/Day Years Used Date Smoking Tobacco: Never Smokeless Tobacco: Never Sex and Gender Information Value Date Recorded Sex Assigned at Not on file Legal Sex Male 2:49 AM CUSTOMER TECHNICAL SERVICES MANAGER Gender Identity Male 05/22/2018 10:57 AM CDT Sexual Orientation Straight 11/03/2020 7: 01 PM CUSTOMER TECHNICAL SERVICES MANAGER documented as of this encounter Last Filed [...] Policy: 0950 [facility] Mohs Micrographic Surgery Operative Record Admit/Discharge [...] Stg Pre-size Post size Repair/Final size K/ [id number] SCC Left faith 1 0.7cm x 0.7cm 1.0cm x 1.0cm [...] Postoperative Size: above Surgeon: Magalie Erickson MD Environmental Health And Safety Manager: Jennie Guillermo MA; Delio Kyae MA Hole Puncher Strap: Vj Hughes Anesthesia 1% lidocaine with epinephrine, 1:100,000. 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
--- OUTSIDE RECORDS SUMMARY | 2024-09-30 12:42 | XMS_ITS | Encounter Summary ---
Author Organization [facility] Address [address] [place] [address] Phone Care Team Providers Care Wedding Coordinator Name Role Phone Corey Angel MD Primary Care Provider [phone] Reason for Referral * MRI/CAT/PET Scan (Routine) - Closed Specialty Diagnoses / Procedures Referred By Contac t Referred To Contact Radiology Diagnoses Aneurysm of ascending aorta without rupture (HCC) Procedures CTA Chest W Contrast Eusebia Coleman MD [address] [facility] [address] [place] [address] Phone: tel: fax: [address] [address] Referral ID Status Reason Start Date Expiration Date Visits Re quested Visits Authorized [id number] Closed 06/30/2022 07/30/2023 1 1 Encounter Details Date Type Department Care Team (Late st Contact Info) Description 06/30/2022 Orders Only [facility] Surgery [address] [facility] 8th [place] [address] [place] [address] Eusebia Coleman MD [address] [facility] [id number] [place] [address] Aneurysm of ascending aorta without rupture (Primary Dx) Social History Tobacco Use Types Packs/Day Years Used Date Smoking Tobacco: Never Smokeless Tobacco: Never Alcohol Use Standard Drinks/Week Comments No 0 (1 standard drink = 0.6 oz pur e alcohol) Sex and Gender Information Value Date Recorded Sex Assigned at Not on file Legal Sex Male 2:49 AM TEACHER EDUCATION DIRECTOR Gender Identity Male 05/22/2018 10:57 AM CDT Sexual Orientation Straight 11/03/2020 7 :01 PM TEACHER EDUCATION DIRECTOR Occupation Industry Job Start Date Job End Date working Not on file Not on file Not on file documented as of this encounter Plan of Treatment Not on file documented as of this encounter Results * CTA Chest W Contrast (08/04/2022 10:18 AM TEACHER EDUCATION DIRECTOR) Anatomical Region Laterality Modality Chest N/A Computed Tomogra phy 08/04/2022 11:2 9 AM TEACHER EDUCATION DIRECTOR Impressions 08/04/2022 2:14 PM TEACHER EDUCATION DIRECTOR Stable dilation of the thoracic aorta with measurements detailed above. Dictated by: Sukhdeep Ozuna M.D. The radiology attending physician has personally reviewed this study, and had reviewed and/or edited this written report and agrees with it. Electronically signed by: Yoana Martinez M.D. Narrative 08/04/2022 2:14 PM TEACHER EDUCATION DIRECTOR EXAMINATION: CTA CHEST W CONTRAST HISTORY: 71-year-old [...] (HCC) documented in this encounter Care Teams Wedding Coordinator Relationship Specialty Start Date End Date Corey Angel MD [address] [facility] [address] [facility] [address] [place] [address] PCP - General Internal Medicine 06/18/21 documented as of this encounter
--- OUTSIDE RECORDS SUMMARY | 2024-09-30 12:42 | XMS_ITS | Encounter Summary ---
Author Organization [facility] Address [address] [place] [address] Phone Care Team Providers Care Zipper Joiner Name Role Phone James Ospina MD Primary Care Provider [phone] Reason for Referral * Diagnostic Imaging (Routine) - Closed Specialty Diagnoses / Procedures Referred By Hoang zavala Referred To Contact Diagnoses Right knee pain, unspecified chronicity Procedures XR Knee Right 3 Views Suleiman Hamilton PA Phone: tel: fax: [facility] [address] Referral ID Status Reason Start Date Expiration Date Visits Re quested Visits Authorized [id number] Closed 08/28/2018 03/08/2020 1 1 ALOMETRIC TECHNICIAN Reason for Visit * Reason Comments Pain Encounter Details Date Type Department Care Team (Late st Contact Info) Description 08/30/2018 1:00 PM CEPHALOMETRIC TECHNICIAN Office Visit [facility] Orthopaedic Surgery [address] [facility] 1st Floor [address] [place] [phone] Suleiman Hamilton PA [address] [place] [address] Right knee pain, unspecified chronicity (Primary Dx); Pain in both knees, unspecified chronicity Social History Tobacco Use Types Packs/Day Years Used Date Smoking Tobacco: Never Smokeless Tobacco: Never Alcohol Use Standard Drinks/Week Comments No 0 (1 standard drink = 0.6 oz pur e alcohol) Sex and Gender Information Value Date Recorded Sex Assigned at Not on file Legal Sex Male 2:49 AM CEPHALOMETRIC TECHNICIAN Gender Identity Male 05/22/2018 10:57 AM CDT Sexual Orientation Straight 11/03/2020 7: 01 PM CEPHALOMETRIC TECHNICIAN Occupation Industry Job Start Date Job [...] (259 lb 8 oz) 08/30/2018 1:17 PM CEPHALOMETRIC TECHNICIAN Height 178.4 cm (5' 10.25 ) 08/30/2018 1:[address] Body Mass Index 36.97 08/30/2018 1:17 PM CEPHALOMETRIC TECHNICIAN documented in this encounter Ordered Prescriptions Prescription [...] 10, 259 lb, BMI 37. Patient transfer oer-ie-rtvsi easily ambulates with a slow steady gait [...] basis. Suleiman Hamilton PA-C Joint Reconstructive Service [facility] Orthopedic Surgery ALOMETRIC TECHNICIAN documented in this encounter Plan of Treatment Not on file documented as of this encounter Results * XR Knee Right 3 Views (08/30/2018 12:58 PM CEPHALOMETRIC TECHNICIAN) Anatomical Region Laterality Modality Lower Extremities, Knee Right Computed Radiography 08/30/2018 1:28 PM CEPHALOMETRIC TECHNICIAN Impressions 08/30/2018 1:28 PM CEPHALOMETRIC TECHNICIAN Unchanged mild right knee osteoarthritis with a new small effusion. Electronically signed by: James Cunningham M.D. Narrative 08/30/2018 1:28 PM CEPHALOMETRIC TECHNICIAN EXAMINATION: Right knee, 3 views HISTORY: ??Right [...] 12/02/2023 added in this encounter Care Teams Zipper Joiner Relationship Specialty Start Date End Date James Ospina MD [address] [address] PCP - General Endocrinology Diabetes & Metabolism 05/22/18 06/17/21 documented as of this encounter
--- OUTSIDE RECORDS SUMMARY | 2024-09-30 12:42 | XMS_ITS | Encounter Summary ---
Author Organization [facility] Address [address] [place] [address] Phone Care Team Providers Care Case Management Specialist Name Role Phone Corey Angel MD Primary Care Provider [phone] Encounter Details Date Type Department Care Team (Late st Contact Info) Description 06/19/2021 Orders Only [facility] Surgery [address] [facility] Advanced Medicine 8th [place] [address] [place] [address] Vinicio Romo MD [address] [place], [place] [id number] Ascending aortic aneurysm (CMS/HCC) (HCC) (Primary Dx) Social History Tobacco Use Types Packs/Day Years Used Date Smoking Tobacco: Never Smokeless Tobacco: Never Alcohol Use Standard Drinks/Week Comments No 0 (1 standard drink = 0.6 oz pur e alcohol) Sex and Gender Information Value Date Recorded Sex Assigned at Not on file Legal Sex Male 2:49 AM INDUSTRIAL CONVEYOR BELT REPAIRER Gender Identity Male 05/22/2018 10:57 AM CDT Sexual Orientation Straight 11/03/2020 7: 01 PM INDUSTRIAL CONVEYOR BELT REPAIRER Occupation Industry Job Start Date Job End Date working Not on file Not on file Not on file documented as of this encounter Plan of Treatment Not on file documented as of this encounter Visit Diagnoses Diagnosis Ascending aortic aneurysm (HCC)- Primary Thoracic aneurysm without mention of rupture documented in this encounter Care Teams Case Management Specialist Relationship Specialty Start Date End Date Corey Angel MD [address] [facility] [address] [place] [address] PCP - General Internal Medicine 06/18/21 documented as of this encounter
--- OUTSIDE RECORDS SUMMARY | 2024-09-30 12:42 | XMS_ITS | Encounter Summary ---
Author Organization [facility] Address [address] [place] [address] Care Team Providers Care Manager Analysis Name Role Phone Corey Angel MD Primary Care Provider [phone] Reason for Referral * MRI/CAT/PET Scan (Routine) - Closed Specialty Diagnoses / Procedures Referred By Contac t Referred To Contact Radiology Diagnoses Aneurysm of ascending aorta without rupture (HCC) Procedures CTA Chest W Contrast Eusebia Coleman MD [address] [facility] [address] [place] [address] Phone: tel: fax: [place] [address] [address] [address] Referral ID Status Reason Start Date Expiration Date Visits Re quested Visits Authorized [id number] Closed 04/18/2024 06/17/2024 1 1 Reason for Visit * MRI/CAT/PET Scan (Routine) - Closed Specialty Diagnoses / Procedures Referred By Contac t Referred To Contact Radiology Diagnoses Aneurysm of ascending aorta without rupture (HCC) Procedures CTA Chest W Contrast Eusebia Coleman MD [address] [facility] [address] [place] [address] Phone: tel: fax: [place] [address] [address] [phone] Referral ID Status Reason Start Date Expiration Date Visits Re quested Visits Authorized [id number] Closed 04/18/2024 06/17/2024 1 1 Encounter Details Date Type Department Care Team (Latest Contact Info) Description 04/18/2024 9:29 AM CDT - 04/18/2024 11:59 PM CDT Hospital Encounter [facility] Imaging [address] [address] Aneurysm of ascending aorta without rupture (HCC) [...] file Legal Sex Male 2:49 AM SENIOR SOFTWARE QA ANALYST Gender Identity Male 05/22/2018 10:57 AM CDT Sexual Orientation Straight 11/03/2020 7: 01 PM SENIOR SOFTWARE QA ANALYST Occupation Industry Job Start Date Job [...] 0.6 - 1.3 mg/dL POC Device Number [id number] SHILPA VIEIRA POC Performer [id number] SHILPA CALI Blood 04/18/2024 9:45 AM CDT 04/18/2024 9:45 AM CDT us Eusebia Coleman MD LAB BLOOD ORDERABLES Final Resul t [facility] [address] [facility]. [place] [address] * CTA Chest W Contrast (04/18/2024 9:44 [...] 04/18/2024 documented in this encounter Care Teams Manager Analysis Relationship Specialty Start Date End Date Corey Angel MD [address] [place] [address] PCP - General Internal Medicine 06/18/21 documented as of this encounter
--- OUTSIDE RECORDS SUMMARY | 2024-09-30 12:42 | XMS_ITS | Encounter Summary ---
Author Organization [facility] Address [address] [place] [address] Phone Care Team Providers Care Industrial Order Clerk Name Role Phone James Ospina MD Primary Care Provider [phone] Reason for Visit * Reason Comments Mohs Consultation Encounter Details Date Type Department Care Team (Late st Contact Info) Description 05/30/2018 1:00 PM CDT Office Visit [facility] Dermatology [address] 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 (Primary Dx) Social History Tobacco Use Types Packs/Day Years Used Date Smoking Tobacco: Never Smokeless Tobacco: Never Sex and Gender Information Value Date Recorded Sex Assigned at Not on file Legal Sex Male 2:49 AM CLINIC SCHEDULER Gender Identity Male 05/22/2018 10:57 AM CDT Sexual Orientation Straight 11/03/2020 7: 01 PM CLINIC SCHEDULER documented as of this encounter Last Filed [...] Skin cancer diagnosis: SCC Anatomic Location(s): Left denominational Previous Mohs surgery: No Pacemaker: No Defibrillator: No Photo taken: Yes Pre-Op instructions provided and explain: Yes Family member or caregiver present during office visit: No Pre-Op Antibiotics: None Outside Repair: No -------- Attending note: History The patient presents with ski ncancer on left denominational, possibly treated before with LN2 per pt.. [...] affect. THOMPSON SKIN TYPE: II FACE: left denominational 0.7x0.7cm pink macule EARS: No abnormalities noted. SCALP/HAIR: No abnormalities noted. EYES/EYELIDS: No scleral icterus. No abnormalities noted of conjunctiva or eyelids. LIPS/ORAL MUCOSA: No abnormalities noted. LYMPH: No adenopathy cervical, supraclavicular, occipital Assessment and Plan 1. Scc left denominational Mohs-- auc 8 ; indication: location, prior [...] 06/01/2018 1:01 PM CDT Associated attestation - Roasline Wan MD - 06/01/2018 1:01 PM CDT [...] Squamous 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 - Left- Primary documented in this encounter Historical Medications * This list may reflect changes made after this encounter. esomeprazole DR (NexIUM) 20 mg capsuleIndicatio ns:Treatment of Non-Bleeding Gastric Disorder,gerd Take 1 capsule (20 mg total) by mouth daily before breakfast added in this encounter Care Teams Industrial Order Clerk Relationship Specialty Start Date End Date James Ospina MD [address] [place] [address] PCP - General Endocrinology Diabetes & Metabolism 05/22/18 06/17/21 documented as of this encounter
--- OUTSIDE RECORDS SUMMARY | 2024-09-30 12:42 | XMS_ITS | Encounter Summary ---
Author Organization [facility] Address [address] [facility] [address] [place] [address] Care Team Providers Care Lathing Supervisor Name Role Phone James Ospina MD Primary Care Provider [phone] Encounter Details Date Type Department Care Team (Late st Contact Info) Description 05/18/2021 Orders Only [facility] Cardiology [address] [facility] [address] [place] [address] Sushant Madison MD [facility] [place] [id number] Social History Tobacco Use Types Packs/Day Years Used Date Smoking Tobacco: Never Smokeless Tobacco: Never Alcohol Use Standard Drinks/Week Comments No 0 (1 standard drink = 0.6 oz pur e alcohol) Sex and Gender Information Value Date Recorded Sex Assigned at Not on file Legal Sex Male 2:49 AM CAMPUS AIDE Gender Identity Male 05/22/2018 10:57 AM CDT Sexual Orientation Straight 11/03/2020 7: 01 PM CAMPUS AIDE Occupation Industry Job Start Date Job End [...] us Sushant Madison MD [facility] Final Result documented in this encounter Visit Diagnoses Not on filedocumented in this encounter Care Teams Lathing Supervisor Relationship Specialty Start Date End Date James Ospina MD [address] [address] PCP - General Endocrinology Diabetes & Metabolism 05/22/18 06/17/21 documented as of this encounter
--- OUTSIDE RECORDS SUMMARY | 2024-09-30 12:42 | XMS_ITS | Encounter Summary ---
Author Organization [facility] Healthcare Address [address] [place] [address] Care Team Providers Care Facing Baster Jumpbasting Name Role Phone Corey Angel MD Primary Care Provider [phone] Encounter Details Date Type Department Care Team (Latest Contact Info) Description 07/15/2022 12:25 PM CDT - 07/15/2022 11:59 PM CDT Hospital Encounter [facility] [address] [place] [address] Discharge Disposition: Discharge to home or self care Social History Tobacco Use Types Packs/Day Years Used Date Smoking Tobacco: Never Smokeless Tobacco: Never Alcohol Use Standard Drinks/Week Comments No 0 (1 standard drink = 0.6 oz pur e alcohol) Sex and Gender Information Value Date Recorded Sex Assigned at Not on file Legal Sex Male 2:49 AM HAND PICKER Gender Identity Male 05/22/2018 10:57 AM CDT Sexual Orientation Straight 11/03/2020 7: 01 PM HAND PICKER Occupation Industry Job Start Date Job End [...] only and have not been reviewed by [facility] Radiology. ??There will be no report generated by a [facility] Radiologist. Narrative RAD_PACS_[facility] - 07/15/2022 12:25 PM CDT EXAMINATION: ??Images For Reference Purposes Only us Eusebia Coleman MD IMG CT PROCEDURES Final Result [facility]PACS[facility] documented in this encounter Visit Diagnoses Not on filedocumented in this encounter Care Teams Facing Baster Jumpbasting Relationship Specialty Start Date End Date Corey Angel MD [address] [place] [address] PCP - General Internal Medicine 06/18/21 documented as of this encounter
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
--- OUTSIDE RECORDS SUMMARY | 2024-09-30 12:42 | XMS_ITS | Encounter Summary ---
Author Organization [facility] Address [address] [place] [address] Phone Care Team Providers Care Script Coordinator Name Role Phone Corey Angel MD Primary Care Provider [phone] Encounter Details Date Type Department Care Team (Late st Contact Info) Description 12/19/2023 Telephone [facility] [address] [facility] Medical Office [address] [place] [address] Tana Elizondo Social History Tobacco [...] on file Legal Sex Male 2:49 AM DOPEMAN Gender Identity Male 05/22/2018 10:57 AM CDT Sexual Orientation Straight 11/03/2020 7: 01 PM DOPEMAN Occupation Industry Job Start Date Job End Date working Not on file Not on file Not on file documented as of this encounter Miscellaneous Notes * Telephone Encounter - Tana Elizondo - 12/30/2023 10:35 AM CDT Patient called, he is ill, rescheduled procedure for 02/01, letter sent * Telephone Encounter - Tana Elizondo - 12/19/2023 4:11 PM CDT Will [...] on filedocumented in this encounter Care Teams Script Coordinator Relationship Specialty Start Date End Date Corey Angel MD [address] [facility] [address] [place] [address] PCP - General Internal Medicine 06/18/21 documented as of this encounter
--- OUTSIDE RECORDS SUMMARY | 2024-09-30 12:43 | XMS_ITS | Encounter Summary ---
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 Requesting ID: [id number] Attending Fax: ?? Attending ID: ?? [id number] Completed Time: ?? 12/16/2015 2:11 PM Dictated [...] Requesting: HERO CARPENTER PADDY Requesting Requesting ID: [id number] Attending Attending ID: [id number] Completed Time: 12/16/2015 2:11 PM Dictated Time: [...] (CBC), morphologic exam (12/16/2015 1:56 PM CDT) [facility] WBC 7.4 3.8 - 9.9 K/cumm HISTORICAL RESULTS Comment: Complete Blood Count with Automated Differential -- Effective Wednesday, December 09, 2015, the [facility] changed hematology analyzers to the Sysmex [...] Effect koffi Wednesday, December 09, 2015, the [facility] changed hematology analyzers to the Sysmex XN 9000. Reference ranges have been revised. 

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
--- OUTSIDE RECORDS SUMMARY | 2024-09-30 12:43 | XMS_ITS | Encounter Summary ---
Author Organization [facility] Facility Care Team Providers Care Bakery Sales Clerk Name Role Phone Unavailable Primary Care Provider Unavailabl e Encounter Details Date Type Department Care Team (Late st Contact Info) Description 01/24/2007 - 01/24/2007 11:59 PM CDT Hospital Encounter [facility] James Gomez MD [address] [address] Social History Tobacco Use Types Packs/Day Years Used Date Smoking Tobacco: Never Assessed Sex and Gender Information Value Date Recorded Sex Assigned at Not on file Legal Sex Male 2:49 AM ENGINE REPAIRER SERVICE Gender Identity Male 05/22/2018 10:57 AM CDT Sexual Orientation Straight 11/03/2020 7: 01 PM ENGINE REPAIRER SERVICE documented as of this encounter Plan of Treatment Not on file documented as of this encounter Visit Diagnoses Not on filedocumented in this encounter
--- OUTSIDE RECORDS SUMMARY | 2024-09-30 12:43 | XMS_ITS | Encounter Summary ---
Author Organization [facility] Facility Care Team Providers Care Caponizer Name Role Phone Unavailable Primary Care Provider Unavailabl e Encounter Details Date Type Department Care Team (Latest Contact Info) Description 04/26/2016 10:57 AM CDT - 04/26/2016 11:59 PM CDT Hospital Encounter [facility] Hammad Cunningham MD [address] [place] [address] Primary osteoarthritis of both knees Social History Tobacco Use Types Packs/Day Years Used Date Smoking Tobacco: Never Assessed Sex and Gender Information Value Date Recorded Sex Assigned at Not on file Legal Sex Male 2:49 AM CORE FILER Gender Identity Male 05/22/2018 10:57 AM CDT Sexual Orientation Straight 11/03/2020 7: 01 PM CORE FILER documented as of this encounter Plan of [...] HERNANDEZ FINAL REPORT ACC# ??Date Time ??Exam [id number] Apr 26, 2016 11:13:00 72271 Knee 3 views R [id number] Apr 26, 2016 11:13:00 55243 Knee 3 views L EXAMINATION: ? 1. [...] signed by: Ze HERNANDEZ on Apr?2015 12:05P [id number] Procedure Note Provider, Eugenia, - 01/24/2017 Ze HERNANDEZ FINAL REPORT ACC# Date Time Exam [id number] Apr 26, 2016 11:13:00 90155 Knee 3 views R [id number] Apr 26, 2016 11:13:00 29215 Knee 3 views L EXAMINATION: 1. Left knee 3 views. 2. Right knee 3 views. HISTORY: Bilateral knee pain FINDINGS: Three views of each knee are submitted for interpretation without comparison. There is mild tricompartmental knee osteoarthritis bilaterally. There is no fracture in either knee. Trace bilateral knee effusions are present. IMPRESSION: Mild bilateral knee osteoarthritis. Requested By: HAMMAD CUNINNGHAM M.D. Dictated By: Ze HERNANDEZ on Apr 26 2016 12:05P This document has been electronically signed by: Ze HERNANDEZ on Apr 26 2016 12:05P [id number] us Historical Provider IMG XR PROCEDURES Final R esult * KNEE RADIOGRAPHY, FRONTAL (AP), LATERAL, OBLIQUE (04/26/2016 11:13 AM CDT) Anatomical Region Laterality Modality N/A Radiographic Tonie ging 04/26/2016 11:1 3 AM CDT Narrative 04/26/2016 12:05 PM CDT Ze HERNANDEZ FINAL REPORT ACC# ??Date Time ??Exam [id number] Apr 26, 2016 11:13:00 [id number] Knee 3 views R [id number] Apr 26, 2016 11:13:00 61457 Knee 3 views L EXAMINATION: ? 1. [...] by: Ze HERNANDEZ on Apr ??2015 12:05P [id number] Procedure Note Provider, MD Eugenia - 01/24/2017 Ze HERNANDEZ FINAL REPORT ACC# Date Time Exam [id number] Apr 26, 2016 11:13:00 30993 Knee 3 views R [id number] Apr 26, 2016 11:13:00 [id number] Knee 3 views L EXAMINATION: 1. Left [...] Ze HERNANDEZ on Apr 26 2016 12:05P [id number] us Historical Provider MD AGARWAL XR PROCEDURES Final R esult documented in this encounter Visit Diagnoses Diagnosis Primary osteoarthritis of both knees documented in this encounter
--- OUTSIDE RECORDS SUMMARY | 2024-09-30 12:43 | XMS_ITS | Encounter Summary ---
Author Organization [facility] Facility Care Team Providers Care Photonics Engineer Name Role Phone Unavailable Primary Care Provider Unavailabl e Encounter Details Date Type Department Care Team (Late st Contact Info) Description 02/01/2007 - 02/01/2007 11:59 PM CDT Hospital Encounter [facility] James Gomez MD [address] [address] Social History Tobacco Use Types Packs/Day Years Used Date Smoking Tobacco: Never Assessed Sex and Gender Information Value Date Recorded Sex Assigned at Not on file Legal Sex Male 2:49 AM DIE SINKER APPRENTICE Gender Identity Male 05/22/2018 10:57 AM CDT Sexual Orientation Straight 11/03/2020 7: 01 PM DIE SINKER APPRENTICE documented as of this encounter Plan of Treatment Not on file documented as of this encounter Visit Diagnoses Not on filedocumented in this encounter
--- OUTSIDE RECORDS SUMMARY | 2024-09-30 12:43 | XMS_ITS | Encounter Summary ---
Author Organization [facility] Facility Care Team Providers Care Medical Transcriptionist Name Role Phone Unavailable Primary Care Provider Unavailabl e Encounter Details Date Type Department Care Team (Late st Contact Info) Description 02/02/2016 - 02/02/2016 11:59 PM CDT [facility] [address] [address] Palpitations Social History Tobacco Use Types Packs/Day Years Used Date Smoking Tobacco: Never Assessed Sex and Gender Information Value Date Recorded Sex Assigned at Not on file Legal Sex Male 2:49 AM SHREDDING MACHINE OPERATOR Gender Identity Male 05/22/2018 10:57 AM CDT Sexual Orientation Straight 11/03/2020 7: 01 PM SHREDDING MACHINE OPERATOR documented as of this encounter Plan of Treatment Not on file documented as of this encounter Visit Diagnoses Diagnosis Palpitations documented in this encounter
--- OUTSIDE RECORDS SUMMARY | 2024-09-30 12:43 | XMS_ITS | Encounter Summary ---
Author Organization [facility] Facility Care Team Providers Care Dry Chain Operator Name Role Phone Unavailable Primary Care Provider Unavailabl e Encounter Details Date Type Department Care Team (Late st Contact Info) Description 05/16/2010 12:30 PM CDT - 05/16/2010 4:03 PM CDT Hospital Encounter [facility] Klaus Marshall MD [address] [facility] [address] [place] [address] Other malaise and fatigue Social History Tobacco Use Types Packs/Day Years Used Date Smoking Tobacco: Never Assessed Sex and Gender Information Value Date Recorded Sex Assigned at Not on file Legal Sex Male 2:49 AM OSTEOPATHIC PHYSICIAN Gender Identity Male 05/22/2018 10:57 AM CDT Sexual Orientation Straight 11/03/2020 7: 01 PM OSTEOPATHIC PHYSICIAN documented as of this encounter Plan of Treatment Not on file documented as of this encounter Visit Diagnoses Diagnosis Other malaise and fatigue documented in this encounter
--- OUTSIDE RECORDS SUMMARY | 2024-09-30 12:43 | XMS_ITS | Encounter Summary ---
Author Organization [facility]/Health system Facility Care Team Providers Care Food And Beverage Assistant Manager Name Role Phone Unavailable Primary Care Provider Unavailabl e Encounter Details Date Type Department Care Team (Late st Contact Info) Description 09/29/2009 - 09/29/2009 11:59 PM HEALTHCARE SALES REPRESENTATIVE Hospital Encounter [facility] Bisi Garcia MD [address] [facility] [place] [address] Pain in joint, multiple sites Social History Tobacco Use Types Packs/Day Years Used Date Smoking Tobacco: Never Assessed Sex and Gender Information Value Date Recorded Sex Assigned at Not on file Legal Sex Male 2:49 AM HEALTHCARE SALES REPRESENTATIVE Gender Identity Male 05/22/2018 10:57 AM CDT Sexual Orientation Straight 11/03/2020 7: 01 PM HEALTHCARE SALES REPRESENTATIVE documented as of this encounter Plan of Treatment Not on file documented as of this encounter Visit Diagnoses Diagnosis Pain in joint, multiple sites documented in this encounter
== END 2024-09-26 11:10 | disposition home or self-care (01) ==
LOC: ANHED 12:25 → ANH3MED 15:23
PROVIDERS: Emergency Medicine; Internal Medicine; Nurse Practitioner Adult Health; Nurse Practitioner Gerontology; Admitting Provider Internal Medicine; Emergency Provider General Practice; PCP Internal Medicine; Visit Provider Internal Medicine
DX: I26.99 Other pulmonary embolism without acute cor pulmonale (principal); C61 Malignant neoplasm of prostate; I71.22 Aneurysm of the aortic arch, without rupture; D50.9 Iron deficiency anemia, unspecified; E78.5 Hyperlipidemia, unspecified; K76.0 Fatty (change of) liver, not elsewhere classified; K21.9 Gastro-esophageal reflux disease without esophagitis; K44.9 Diaphragmatic hernia without obstruction or gangrene; I10 Essential (primary) hypertension; Z20.822 Contact with and (suspected) exposure to COVID-19; Z79.52 Long term (current) use of systemic steroids; Z79.899 Other long term (current) drug therapy; Z90.49 Acquired absence of other specified parts of digestive tract
CPT/HCPCS: 36415; 71046; 71275; 80048; 80053; 83690; 84484; 85025; 85055; 85610; 85730; 87637; 93005; 93970; 96372; 96374; 99285; A9270; C8929; G0378; J1650; J7512; Q9957; Q9967

== ENCOUNTER 2024-11-23 10:48 | Outpatient (CLI) | payer MEDICARE, OTHER, SELFPAY ==
[2024-11-23 11:48] LABS: Add Urine Microscopic? NO; Appearance Urine Clear (Clear); Bilirubin Urine Negative (Negative); Blood Urine Negative (Negative); Color Urine Yellow (Yellow); Glucose Urine UA Negative (Negative); Ketones Urine Negative (Negative); Leukocyte Esterase Ur Negative LEU/UL (Negative); Nitrate Urine Negative (Negative); Protein Urine Negative (Negative); Urobilinogen Urine 0.2 mg/dL (<2.0)
== END 2024-11-23 10:49 | disposition home or self-care (01) ==
PROVIDERS: PCP Internal Medicine; Visit Provider Internal Medicine
DX: J84.9 Interstitial pulmonary disease, unspecified (principal); Z85.46 Personal history of malignant neoplasm of prostate; W19.XXXA Unspecified fall, initial encounter
CPT/HCPCS: 71046; 71100; 74018; 81003

== ENCOUNTER 2024-11-30 10:39 | Outpatient (CLI) | payer MEDICARE, OTHER, SELFPAY ==
[2024-11-30 11:27] LABS: Iron 80 ug/dL (49-181)
[2024-11-30 11:29] LABS: Alanine Aminotransferase 20 U/L (6-50); Albumin Level 4.4 g/dL (3.5-5.1); Alkaline Phosphatase 101 U/L (38-126); Anion Gap 13 mmol/L (4-12); Aspartate Amino Transferase 25 U/L (17-59); Bilirubin,Total 0.4 mg/dL (0.2-1.3); Blood Urea Nitrogen 10 mg/dL (9-20); Calcium 9.6 mg/dL (8.4-10.2); Carbon Dioxide 23 mmol/L (22-30); Chloride 106 mmol/L (98-107); Cholesterol 127 mg/dL (0-200); Estimated Glomerular Filt Rate > 60; Glucose 113 mg/dL (65-110); HDL Direct 49 mg/dL; Potassium 3.7 mmol/L (3.4-5.0); Sodium 142 mmol/L (137-145); Triglycerides 182 mg/dL (<150)
[2024-11-30 11:32] LABS: Basophils Absolute Auto 0.1 K/mm3 (0.0-0.1); Eosinophils Absolute Auto 0.4 K/mm3 (0-0.3); Eosinophils Percent Auto 7.7 % (0-4.4); Hematocrit 40.2 % (42.0-52.0); Immature Granulocyte Absolute 0.02 K/mm3 (0.00-0.031); Immature Granulocyte Percent A 0.4 % (0-0.5); Lymphocytes Absolute Auto 0.48 K/mm3 (0.9-3.2); Lymphocytes Percent Auto 9.7 % (18.3-44.2); Mean Corpuscular HGB Conc 32.3 g/dl (32-36); Mean Corpuscular Hemoglobin 29.9 pg (26-34); Mean Corpuscular Volume 92.4 fl (80-100); Mean Platelet Volume 11.1 fl (7.4-10.4); Monocytes Absolute Auto 0.8 K/mm3 (0.1-0.6); Monocytes Percent Auto 16.1 % (2.6-8.5); Neutrophils Absolute Auto 3.2 K/mm3 (1.3-6.7); Neutrophils Percent Auto 65.1 % (45.5-73.1); Platelet Count Result 189 k/mm3 (150-375); Red Blood Count 4.35 M/mm3 (4.6-6.20); Red Cell Distribution Width 13.5 % (11.5-14.5)
--- OUTSIDE RECORDS SUMMARY | 2024-11-30 11:32 | XMS_ITS | Clinical Summary ---
Author Organization [facility] Address [address] [place] [address] Care Team Providers Care Afternoon Nanny Name Role Phone Corey Angel MD Primary Care Provider [phone] Allergies No known active allergies Medications rosuvastatin [...] Squamous cell carcinoma of skin of left episcopal 0 05/30/2018 Knee pain 04/22/2016 Resolved Problems [...] 77 12/09/2023 11:02 AM CDT Temperature 36.6 C (97.8 F) 07/16/2022 1:27 PM CDT Respiratory Rate - - Oxygen Saturation 98% [...] Medicare Wellness Visit 2016 COVID-19 Vaccine ( season) 2024 08/12/2021, 12/13/2020, 11/20/2020 Influenza Adult (#1) 2024 07/27/2023, 07/30/2022, 08/15/2019, Additional history exists Pneumococcal Vaccine: 65+ Years Completed 08/13/2022 Meningococcal B Vaccine Aged Out No l onger eligible based on patient's age to complete this topic Meningococcal Vaccine Aged Out No elsa barrett eligible based on patient's age to complete this topic RSV Immunizations Under 20 Months Aged Out No longer eligible based on patient's age to complete this topic Insurance HUMANA HUMANA Care Teams Afternoon Nanny Relationship Specialty Start Date End Date Corey Angel MD [address] [place] [phone] PCP - General INTERNAL MEDICINE 02/25/21
--- OUTSIDE RECORDS SUMMARY | 2024-11-30 11:32 | XMS_ITS ---
Author Organization [facility] Address [address] [place] [address] Care Team Providers Care Engineering Documentation Specialist Name Role Phone Corey Angel MD Primary Care Provider [phone] Clem Thomson MD Unavailable Harman Morales MD Unavailable [phone] James Robert DO Unavailable [phone] Active Problems Problem Noted Date Diagnosed Date Personal history of radiation therapy 11/15/2024 Prostate cancer 05/02/2024 Cancer Staging:Clinical stage from 06/28/2024:Stage IIIB(cT3b, cN0, cM0, PSA: 9.1, Grade Group: 2) - Signed by Harman Morales MD on 06/28/2024 Elevated PSA 12/19/2023 Ascending aortic aneurysm 06/19/2021 Squamous cell carcinoma of skin of left catholic - Left 05/30/2018 Knee pain 04/22/2016 Current Treatment and Therapy Plans Abiraterone / PredniSONE 28 Day Cycles* [...] (HCC) Treatment Medications leuprolide acetate (6 month) (ELIGARD) Past Treatment and Therapy Plans No past plan information found. Radiation Treatments (No Episode) * Course C1_PROSTATE_202309/05/2024 - 10/19/2024 Treatment Period Energy Fraction Dose Fractions Total Dose Plans Planned PROSTATE_LNS 09/05/2024 - 10/19/2024 250 28 / 7,000 Reference Points Delivered PTV_7000 09/05/2024 - 10/19/2024 7,000 Lifetime Dose Tracking * Chemical Lifetime Dose Automatic Entry Manual Entr y DLP 1,220 mGycm 1,220 mGycm 0 mGycm
--- OUTSIDE RECORDS SUMMARY | 2024-11-30 11:32 | XMS_ITS | Encounter Summary ---
Author Organization [facility] Address [facility] [place] [address] Care Team Providers Care Glue Plant Operator Name Role Phone Corey Angel MD Primary Care Provider [phone] Encounter Details Date Type Department Care Team (Latest Contact Info) Description 01/18/2024 [employer] Message [facility] [phone] Diego Muse MD [address] [place] [address] [address] [place] [phone] Heart Monitor Status Social History Tobacco Use [...] on filedocumented in this encounter Care Teams Glue Plant Operator Relationship Specialty Start Date End Date Corey Angel MD [address] [place] [address] PCP - General INTERNAL MEDICINE 02/25/21 documented as of this encounter
--- OUTSIDE RECORDS SUMMARY | 2024-11-30 11:32 | XMS_ITS | Clinical Summary ---
Author Organization [facility] Address [address] [address] Phone Care Team Providers Care Carbon Paper Interleafer Name Role Phone Corey Angel MD Primary Care Provider [phone] Uzair Dye DO Unavailable [phone] Allergies No known active allergies Medications [...] Comments Blood Pressure 120/90 10/12/2016 12:23 PM SAP SOLUTION MANAGER CONSULTANT Pulse 79 10/12/2016 12:23 PM SAP SOLUTION MANAGER CONSULTANT Temperature 36.1 C (96.9 F) 10/12/2016 12:23 PM SAP SOLUTION MANAGER CONSULTANT Respiratory Rate 14 10/12/2016 12:23 PM SAP SOLUTION MANAGER CONSULTANT Oxygen Saturation 94% 10/12/2016 12:23 PM SAP SOLUTION MANAGER CONSULTANT Inhaled Oxygen Concentration - - Weight 117.5 kg (259 lb) 10/12/2016 12:23 PM SAP SOLUTION MANAGER CONSULTANT Height 177.8 cm (5' 10 ) 10/12/2016 12:23 PM SAP SOLUTION MANAGER CONSULTANT Body Mass Index 37.16 10/12/2016 12:23 PM SAP SOLUTION MANAGER CONSULTANT Plan of Treatment Health Maintenance Due Date Last Done Comments Hepatitis C Virus (HCV) Screening 1950 TdaP Immunization 1950 Cologuard 2001 Immunochemical Fecal Occult Blood 2001 Pneumococcal Immunization (50+ years) (1 of 1 - PCV) 2001 Zoster Immunization (2 of 3) 08/08/2016 06/13/2016 Influenza Immunization (#1) 05/27/202406/27, 08/15/2019, 07/23/2018, Additional history exists SARS-COV-2 Immunization ( season) 2024 08/12/2021, 12/13/2020, 11/20/2020 Colonoscopy 04/01/2026 04/01/2016 Colorectal Cancer Screening 04/01/2026 Respiratory Syncytial Virus (RSV) Immunization (Adult) (1 - 1-dose 75+ series) 2026 04/01/2016 Hepatitis B Immunization Aged Out No longer eligible based on patient's age to complete this topic Meningococcal Immunization (ACWY) Aged Out No longer eligible based on patient's age to complete this topic Rotavirus Immunization Aged Out No lo nger eligible based on patient's age to complete this topic Procedures Procedure Name Priority Date/Time Associated Diagnosis Comments COLONOSCOPY Routine 04/01/2016 from Last 3 Months or Most Recently Relevant to Health Maintenance Results * COLONOSCOPY (04/01/2016) Corey Angel MD PROCEDURE/MINOR SURGICAL ORDER ALPHONSE Final Result from Last 3 Months or Most Recently Relevant to Health Maintenance Insurance MEDICARE [employer] Care Teams Carbon Paper Interleafer Relationship Specialty Start Date End Date Corey Angel MD [address] [place] [address] PCP - General Internal Medicine 03/31/16 Uzair Dye DO [address] [place] [address] Gastroenterology 03/31/16
--- OUTSIDE RECORDS SUMMARY | 2024-11-30 11:32 | XMS_ITS | Continuity of Care Document ---
Author Name [facility] Organization [facility] Care Team Providers Care Selling Manager Name Role Phone [facility] Unavailable Unavailable Medications Combined list of outpatient medications from Department of Defense and Veterans Affairs facilities.Medications provided include 1) outpatient medications from the last 15 months, and 2) patient-reported medications. Medication Details Route Status Patient Instructions Prescription Expires Prescription Number Last Dispense Date Ordering Provider Order Date Order Qty Source ICOSAPENT ETHYL (icosapent ethyl), 1 G, CAPSULE, ORAL, 'S LAB, 120 ea. BOTTLE Cancele d [id number] : 2023 0 Pharmac y Data Transac tion Service Facilit y ICOSAPENT ETHYL (icosapent ethyl), 1 G, CAPSULE, ORAL, 'S LAB, 120 ea. BOTTLE Cancele d [id number] : 2023 0 Pharmac y Data Transac tion Service Facilit y LORAZEPAM (lorazepam) , 0.5 MG, TABLET, ORAL, AUROBINDO PHARM, 500 ea. BOTTLE Active [id number] 2023 45 Pharmac y Data Transac tion Service Facilit y LORAZEPAM (lorazepam) , 0.5 MG, TABLET, ORAL, AUROBINDO PHARM, 500 ea. BOTTLE Active [id number] 2023 45 Pharmac y Data Transac tion Service Facilit y LORAZEPAM (lorazepam) , 0.5 MG, TABLET, ORAL, TEVA [place], 1000 ea. BOTTLE Cancele d [id number] : 2022 0 Pharmac y Data Transac tion Service Facilit y METOPROLOL SUCCINATE (metoprolol succinate), 25 MG, TAB ER 24H, ORAL, ACTAVIS/TEV A, 100 ea. BOTTLE Active [id number] 06/03/ 2024 45 Pharmac y Data Transac tion Service Facilit y ROSUVASTATI N CALCIUM (rosuvastat in calcium), 40 MG, TABLET, ORAL, CAMBER PHARMACE, 30 ea. BOTTLE Active [id number] 2023 90 Pharmac y Data Transac tion Service Facilit y Immunizations Combined list of available immunizations from the Department of Defense and Veterans Affairs facilities. 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 Source COVID-19, mRNA, LNP-S, PF, 30 mcg/0.3 mL dose 2020 [employer] [place] (PFR) Not Given COVID-19, mRNA, LNP-S, PF, 30 mcg/0.3 mL dose DoD Influenza, high dose seasonal 2018 ALUL, () Not Given Influenza , high dose seasonal DoD Influenza, high dose seasonal 2016 ALUL, () Not Given Influenza , high dose seasonal DoD Influenza, seasonal, injectable 2015 ALUL, () Not Given Influenza , seasonal, injectabl e DoD zoster live 2015 ALUL, () Not Given zoster live DoD Influenza, seasonal, injectable, preservative free 2014 ALUL, () Not Given Influenza , seasonal, injectabl e, preservat koffi free DoD influenza virus vaccine, split virus (incl. purified surface antigen)-reti red CODE 1 2005 Unknown, Provider [id number] [facility] ([facility]) complet ed influenza virus vaccine, split virus (incl. purified surface antigen)- retired CODE DoD influenza virus vaccine, split virus (incl. purified surface antigen)-reti red CODE 1 2004 Unknown, Provider [id number] [employer] ([facility]) complet ed influenza virus vaccine, split virus (incl. purified surface antigen)- retired CODE DoD typhoid vaccine, parenteral, other than acetone-kille d, dried 2004 Unknown, Provider [id number] [employer]i Pasteur ([facility]) complet ed typhoid vaccine, parentera l, other than acetone-k illed, dried DoD hepatitis A vaccine, adult dosage 1 2004 Unknown, Provider [id number] 52 [facility] ([facility]) complet ed hepatitis A vaccine, adult dosage DoD influenza virus vaccine, whole virus 1 1998 Unknown, Provider [id number] Soren (CON) complet ed influenza virus vaccine, whole virus DoD tuberculin skin test; purified protein derivative solution, intradermal 1 1997 Unknown, Provider 96 Transcribed (TRS) complet ed tuberculi n skin test; purified protein derivativ e solution, intraderm al DoD Procedures Combined list of: 1) Procedures from Department of Veterans Affairs facilities going back up to thelast 18 months, not all VA non-surgical procedures are included; 2) All procedures from the Department of Defense facilities. Procedure Procedure Type Code Date Perfomer Comments Karen gabriel EXCISION OF HEMORRHOIDS 09/13/1993 [facility] Social History Combined list of available smoking, tobacco, and other social history from Department of Defense and Veterans Affairs facilities. Social History Type Response Date Comment Karen gabriel This section is an empty social history section. [facility]
--- OUTSIDE RECORDS SUMMARY | 2024-11-30 11:32 | XMS_ITS | Encounter Summary ---
Author Organization [facility] Address [facility] [place] [address] Care Team Providers Care Wrapping Machine Tender Name Role Phone Corey Angel MD Primary Care Provider [phone] Encounter Details Date Type Department Care Team (Late st Contact Info) Description 12/14/2022 [employer] Message Enc [facility] [address] [address] Mychart, [facility] Provider Stress test Social History Tobacco Use [...] on filedocumented in this encounter Care Teams Wrapping Machine Tender Relationship Specialty Start Date End Date Corey Angel MD [address] [place] [phone] PCP - General INTERNAL MEDICINE 02/25/21 documented as of this encounter
--- OUTSIDE RECORDS SUMMARY | 2024-11-30 11:32 | XMS_ITS | Clinical Summary ---
Author Organization [facility] [place] Address [address] [place] [address] Care Team Providers Care Engravings Polisher Name Role Phone Corey Angel MD Primary Care Provider [phone] Clem Thomson MD Unavailable [phone] Harman Morales MD Unavailable [phone] James Robert DO Unavailable [phone] Allergies No known active allergies Medications esomeprazole [...] as needed for chest pain 3 Active LORazepam (ATIVAN) 0.5 mg tablet Take 1 tablet (0.5 mg total) by mouth every 6 (six) hours as needed for anxiety (prior to MRI) 1 tablet 4 Active traZODone (DESYREL) 50 mg tablet Take 1 tablet (50 mg total) by mouth nightly 4 Active ascorbic acid (vitamin C) 1,000 mg tablet 4 Active abiraterone (ZYTIGA) 250 mg tabletIndicati ons:Prostate [...] with food. 60 tablet 3 4 Active tamsulosin (FLOMAX) 0.4 mg extended release capsuleIndicat ions:Prostate cancer (HCC) Take 1 capsule (0.4 mg total) by mouth 2 (two) times a day 180 capsule 5 Active bee pollen 550 mg capsuleIndicat ions:supplemen t/allergies Take 1 Dose by mouth 2 (two) times a day 1 tbs BID 11/28/19 25 Discontinu ed(Patient Reported) azelastine (ASTELIN) 137 mcg (0.1 %) nasal spray Administer 1 spray into each nostril 2 (two) times a day Use in each nostril as directed 11/28/19 25 Discontinu ed(Patient Reported) Active Problems Problem Noted Date Diagnosed Date Personal history of radiation therapy 11/15/2024 Prostate cancer 05/02/2024 Cancer Staging:Clinical stage from 06/28/2024:Stage IIIB(cT3b, cN0, cM0, PSA: 9.1, Grade Group: 2) - Signed by Harman Morales MD on 06/28/2024 Elevated PSA 12/19/2023 Ascending aortic aneurysm 06/19/2021 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 - Left 05/30/2018 Knee pain 04/22/2016 Encounters Date Type Department Care Team Description 11/27/2024 1:30 PM [employer] Office Visit [facility] Office Building 2 Radiation Oncology [address] [place] [address] Yanci Garcia PA Prostate cancer (HCC) (Primary Dx); Personal history of radiation therapy 11/22/2024 3:10 PM [employer] - 11/22/2024 11:59 PM [employer] Hospital Encounter [address] [address] Prostate cancer (HCC) Discharge Disposition: Discharge to home or self care 11/22/2024 3:00 PM [employer] Lab [facility] Outpatient Lab at [address] [address] Prostate cancer (HCC) (Primary Dx) 11/19/2024 Telephone [facility] Cardiology [address] [place] [address] 8th [place] [address] [place] [address] Dana López 11/16/2024 Telephone [facility] Physicians [facility] Oncology [address] [place] [address] [address] [place] [phone] Sherin Armenta, BESS 11/06/[address] [address] Referral, Self Appointment Request 10/29/2024 Orders Only [facility] Office Building 2 Radiation Oncology [address] [place] [address] Taya Cartagena, MICAH Prostate cancer (HCC) (Primary Dx) 10/22/2024 2:00 PM [employer] Lab [facility] Outpatient Lab at [address] [address] Prostate cancer (HCC) (Primary Dx) 10/22/2024 1:51 PM [employer] - 10/22/2024 11:59 PM [employer] Hospital Encounter [address] [address] Prostate cancer (HCC) Discharge Disposition: Discharge to home or self care 10/19/2024 1:00 PM [facility] Medical Office Building 2 Radiation Oncology [address] [place] [address] Harman Morales MD 10/19/2024 Completion of Therapy [facility] Office Building 2 Radiation Oncology [address] [place] [address] Harman Morales MD 10/19/[facility] 2 Rad[facility] On[facility] [address] [place] [address] Ariela Boyle MD Prostate cancer (HCC) (Primary Dx) 10/19/2024 Orders Only RAD ONC TREATMENTS Miscellaneous, Not In File 10/18/2024 1:00 PM [facility] Medical Office Building 2 Radiation Oncology [address] [place] [address] 10/18/2024 Orders Only RAD ONC TREATMENTS Miscellaneous, Not In File 10/17/2024 1:00 PM [facility] Medical Office Building 2 Radiation Oncology [address] [place] [address] 10/17/2024 Orders Only RAD ONC TREATMENTS Miscellaneous, Not In File 10/16/2024 1:00 PM [facility] Medical Office Building 2 Radiation Oncology [address] [place] [address] 10/16/2024 Orders Only RAD ONC TREATMENTS Miscellaneous, Not In File 10/15/2024 1:00 PM [facility] Medical Office Building 2 Radiation Oncology [address] [place] [address] 10/15/2024 Orders Only RAD ONC TREATMENTS Miscellaneous, Not In File 10/12/2024 1:00 PM [facility] Medical Office Building 2 Radiation Oncology [address] [place] [address] 10/12/2024 [facility] 2 Radiation Oncology [address] [place] [address] Harman Morales MD 10/12/2024 Orders Only RAD ONC TREATMENTS Miscellaneous, Not In File 10/11/2024 1:00 PM [employer] Treatment [facility] Office Building 2 Radiation Oncology [address] [place] [address] 10/11/2024 Orders Only RAD ONC TREATMENTS Miscellaneous, Not In File 10/10/2024 1:00 PM [employer] Treatment [facility] Office Building 2 Radiation Oncology [address] [place] [address] 10/10/2024 Orders Only RAD ONC TREATMENTS Miscellaneous, Not In File 10/09/2024 1:00 PM [employer] Treatment [facility] Office Building 2 Radiation Oncology [address] [place] [address] 10/09/2024 Orders Only RAD ONC TREATMENTS Miscellaneous, Not In File 10/08/2024 1:00 PM [employer] Treatment [facility] Building 2 Radiation Oncology [address] [place] [address] 297[address] 10/08/2024 Orders Only RAD ONC TREATMENTS Miscellaneous, Not In File 10/05/2024 1:00 PM [employer] Treatment [facility] Office Building 2 Radiation Oncology [address] [place] [address] 10/05/2024 OTV [facility] Office Building 2 Radiation Oncology [address] [place] [address] Harman Morales MD 10/05/2024 Orders Only RAD ONC TREATMENTS Miscellaneous, Not In File 10/05/2024 Orders Only [facility] Office Building 2 Radiation Oncology [address] [place] [address] Taya Cartagena, MICAH Prostate cancer (HCC) (Primary Dx) 10/04/2024 1:00 PM [employer] Treatment [facility] Office Building 2 Radiation Oncology [address] [place] [address] 10/04/2024 Orders Only RAD ONC TREATMENTS Miscellaneous, Not In File 10/03/2024 1:00 PM [employer] Treatment [facility] Building 2 Radiation Oncology [address] [place] [address] 10/03/2024 Orders Only RAD ONC TREATMENTS Miscellaneous, Not In File 10/02/2024 1:00 PM [employer] Treatment [facility] Building 2 Radiation Oncology [address] [place] [address] 55[address] 10/02/2024 Orders Only RAD ONC TREATMENTS Miscellaneous, Not In File 09/28/2024 1:00 PM [employer] Treatment [facility] Building 2 Radiation Oncology [address] [place] [address] 199[address] 09/28/2024 OTV [facility] Building 2 Radiation Oncology [address] [place] [address] 486[address] Ariela Boyle MD Prostate cancer (HCC) (Primary Dx) 09/28/2024 Orders Only RAD ONC TREATMENTS Miscellaneous, Not In File 09/27/2024 1:00 PM [employer] [facility] Medical Office Building 2 Radiation Oncology [address] [place] [address] 09/27/2024 Orders Only RAD ONC TREATMENTS Miscellaneous, Not In File 09/25/2024 [facility] Medical Office Building 2 Radiation Oncology [address] [place] [address] Ariela Boyle MD 09/21/2024 1:00 PM [employer] Treatment [facility] Building 2 Radiation Oncology [address] [place] [address] 09/21/2024 OTV [facility] Office Building 2 Radiation Oncology [address] [place] [address] 25022 Harman Morales MD 09/21/2024 Orders Only RAD ONC TREATMENTS Miscellaneous, Not In File 09/20/2024 1:00 PM [employer] Treatment [facility] Building 2 Radiation Oncology [address] [place] [address] 16702 09/20/2024 Orders Only RAD ONC TREATMENTS Miscellaneous, Not In File 09/18/2024 1:00 PM [employer] Treatment [facility] Building 2 Radiation Oncology [address] [place] [address] 226[address] 09/18/2024 Orders Only RAD ONC TREATMENTS Miscellaneous, Not In File 09/17/2024 1:00 PM [employer] Treatment [facility] Building 2 Radiation Oncology [address] [place] [address] 09/17/2024 Orders Only RAD ONC TREATMENTS Miscellaneous, Not In File 09/14/2024 1:00 PM [employer] Treatment [facility] Building 2 Radiation Oncology [address] [place] [address] 09/14/2024 OTV [facility] Office Building 2 Radiation Oncology [address] [place] [address] Harman Morales MD 09/14/2024 Orders Only RAD ONC TREATMENTS Miscellaneous, Not In File 09/13/2024 1:00 PM [employer] [facility] Medical Office Building 2 Radiation Oncology [address] [place] [address] 09/13/2024 Orders Only RAD ONC TREATMENTS Miscellaneous, Not In File 09/12/2024 1:00 PM [employer] [facility] Medical Office Building 2 Radiation Oncology [address] [place] [address] 09/12/2024 Orders Only RAD ONC TREATMENTS Miscellaneous, Not In File 09/11/2024 1:00 PM [employer] Treatment [facility] Building 2 Radiation Oncology [address] [place] [address] 25681 09/11/2024 Orders Only RAD ONC TREATMENTS Miscellaneous, Not In File 09/10/2024 1:00 PM [employer] [facility] Medical Office Building 2 Radiation Oncology [address] [place] [address] 13147 09/10/2024 Orders Only RAD ONC TREATMENTS Miscellaneous, Not In File 09/07/2024 1:00 PM [employer] Treatment [facility] Office Building 2 Radiation Oncology [address] [place] [address] 285[address] 09/07/2024 OTV [facility] Office Building 2 Radiation Oncology [address] [place] [address] 88857 Harman Morales MD 09/07/2024 Orders Only RAD ONC TREATMENTS Miscellaneous, Not In File 09/06/2024 1:15 PM [employer] Clinical Support [facility] Office Building 2 Radiation Oncology [address] [place] [address] Prostate cancer (HCC) (Primary Dx); Elevated PSA 09/06/2024 1:00 PM [employer] Treatment [facility] Office Building 2 Radiation Oncology [address] [place] [address] 139[address] 09/06/2024 Orders Only RAD ONC TREATMENTS Miscellaneous, Not In File 09/05/2024 1:15 PM [employer] Treatment [facility] Building 2 Radiation Oncology [address] [place] [address] Harman Morales MD 09/05/2024 1:00 PM [employer] Treatment [facility] Office Building 2 Radiation Oncology [address] [place] [address] 199[address] Harman Morales MD 09/05/2024 Orders Only RAD ONC TREATMENTS Miscellaneous, Not In File 09/03/2024 7:15 PM [employer] Treatment [facility] Office Building 2 Radiation Oncology [address] [place] [address] from Last 3 Months Immunizations Immunization Administration Dates Next Due Influenza, Trivalent, IM (IRIS) 09/08/2016 Surgical History Surgery Date Site/Laterality Comments HEMORROIDECTOMY 09/26/1989 - 09/25/1990 COLONOSCOPY 09/26/2022 - 09/25/2023 CHOLECYSTECTOMY 09/26/2019 - 09/25/2020 PROSTATE BIOPSY MOHS SURGERY x2 Medical History Medical History Date Comments Ascending aortic aneurysm Iron deficiency anemia Fatty liver Hiatal hernia [...] on file Legal Sex Male 2:49 AM [employer] Gender Identity Male 05/22/2018 10:57 AM CDT Sexual Orientation Straight 11/03/2020 7: 01 PM [employer] Occupation Industry Job Start Date Job End Date working Not on file Not on file Not on file Obstetrics History Last Filed Vital Signs Vital Sign Reading Time Taken Comments Blood Pressure 156/101 11/27/2024 1:30 PM [employer] Pulse 93 11/27/2024 1:30 PM [employer] Temperature 36.2 C (97.2 F) 08/09/2024 3:04 PM [employer] Respiratory Rate 16 08/17/2024 12:20 PM [employer] Oxygen Saturation 99% 11/27/2024 1:30 PM [employer] Inhaled Oxygen Concentration - - Weight 125.2 kg (276 lb) 11/27/2024 1:30 PM [employer] Height 179.1 cm (5' 10.5 ) 08/09/2024 3:04 PM CS T Body Mass Index 39.04 08/09/2024 3:04 PM [employer] Plan of Treatment Health Maintenance Due Date Last Done Comments Colon Cancer Screening-Colonoscopy 1950 Depression Screening 1950 Hepatitis C Screening 1950 DTaP/Tdap/Td Vaccine (1 - Tdap) 1962 Hepatitis B Screening 1969 Well Visit 65+ 2016 Covid-19 Vaccine (4 2023-2 5 season) 2024 08/12/2021, 12/13/2020, 11/20/2020 Fall Risk Assessment 06/28/2025 06/28/2024, 04/30/20 Pneumococcal vaccine 65+ Completed 08/13/2022 Zoster Vaccine Completed 04/12/2023, 11/24, 06/13/2016 Influenza Vaccine Completed 06/14/2024, , 07/08/2022, Additional history exists Prostate Cancer Screening-PSA Discontinued 11/22/2024, 06/15/2024 Procedures Procedure Name Priority Date/Time Associated Diagnosis Comments TOTAL TESTOSTERONE Routine 11/22/2024 3: 10 PM [employer] Prostate cancer (HCC) PSA DIAGNOSTIC Routine 11/22/2024 3:10 PM [employer] Prostate cancer (HCC) EGFR Routine 10/22/2024 1:51 PM [employer] Prostate cancer (HCC) DIFFERENTIAL AUTO Routine 10/22/2024 1:5 1 PM [employer] Prostate cancer (HCC) CBC WITH AUTO DIFFERENTIAL Routine 10/22/2024 1:51 PM [employer] Prostate cancer (HCC) COMPREHENSIVE METABOLIC PANEL Routine 10/22/2024 1:51 PM [employer] Prostate cancer (HCC) RAD ONC ARIA SESSION SUMMARY 10/19/2024 1:14 PM [employer] RAD ONC ARIA SESSION SUMMARY 10/18/2024 12:57 PM [employer] RAD ONC ARIA SESSION SUMMARY 10/17/2024 1:16 PM [employer] RAD ONC ARIA SESSION SUMMARY 10/16/2024 1:07 PM [employer] RAD ONC ARIA SESSION SUMMARY 10/15/2024 1:15 PM [employer] RAD ONC ARIA SESSION SUMMARY 10/12/2024 1:12 PM [employer] RAD ONC ARIA SESSION SUMMARY 10/11/2024 1:51 PM [employer] RAD ONC ARIA SESSION SUMMARY 10/10/2024 1:10 PM [employer] RAD ONC ARIA SESSION SUMMARY 10/09/2024 1:10 PM [employer] RAD ONC ARIA SESSION SUMMARY 10/08/2024 1:12 PM [employer] RAD ONC ARIA SESSION SUMMARY 10/05/2024 1:12 PM [employer] RAD ONC ARIA SESSION SUMMARY 10/04/2024 1:09 PM [employer] RAD ONC ARIA SESSION SUMMARY 10/03/2024 1:14 PM [employer] RAD ONC ARIA SESSION SUMMARY 10/02/2024 1:07 PM [employer] RAD ONC ARIA SESSION SUMMARY 09/28/2024 1:13 PM [employer] RAD ONC ARIA SESSION SUMMARY 09/27/2024 1:07 PM [employer] RAD ONC ARIA SESSION SUMMARY 09/21/2024 1:09 PM [employer] RAD ONC ARIA SESSION SUMMARY 09/20/2024 1:11 PM [employer] RAD ONC ARIA SESSION SUMMARY 09/18/2024 1:16 PM [employer] RAD ONC ARIA SESSION SUMMARY 09/17/2024 1:16 PM [employer] RAD ONC ARIA SESSION SUMMARY 09/14/2024 1:12 PM [employer] RAD ONC ARIA SESSION SUMMARY 09/13/2024 1:23 PM [employer] RAD ONC ARIA SESSION SUMMARY 09/12/2024 1:16 PM [employer] RAD ONC ARIA SESSION SUMMARY 09/11/2024 1:16 PM [employer] RAD ONC ARIA SESSION SUMMARY 09/10/2024 1:15 PM [employer] RAD ONC ARIA SESSION SUMMARY 09/07/2024 1:17 PM [employer] RAD ONC ARIA SESSION SUMMARY 09/06/2024 1:12 PM [employer] RAD ONC ARIA SESSION SUMMARY 09/05/2024 1:23 PM [employer] from Last 3 Months Results * (ABNORMAL) Total testosterone (11/22/2024 3:10 PM [employer]) Testosterone <3(L) 193 - 740 ng/dL Blood 11/22/2024 3:10 PM [employer] 11/22/2024 9:25 PM [employer] Yanci TAN LAB BLOOD ORDERABLES Final Result [facility] [address] [place] [address] * PSA diagnostic (11/22/2024 3:10 PM [employer]) PSA-Total <0.01 <=6.20 ng/mL Comment: Interpretive Data AGE SEX REFERENCE INTERVAL 0 minutes-150 years Female None 0 minutes-49 years Male None 50-59 years Male 0-3.90 60-69 years Male 0-5.40 70-79 years Male 0-6.20 80-150 years Male 0-6.20 The K[employer] PSA Total assay procedure was used. Results from different manufacturers or methods may not be comparable. Serial testing should be performed using the same method. Current interpretive data last revised 22. Blood 11/22/2024 3:10 PM [employer] 11/22/2024 9:25 PM [employer] Yanci TAN LAB BLOOD ORDERABLES Final Result Performing Organization Address City/[facility]/ZIP Co de Phone Number [facility]ILPA BR[facility] [address] [place] [address] * eGFR (10/22/2024 1:51 PM [employer]) eGFR >90 >=60 mL/min/1. 73 m2 Comment: Interpretive Data Reference Interval Normal >/= 90 mL/min/1.73m2 Mildly decreased* 60 - 89 mL/min/1.73m2 Mildly to moderately decreased 45 - 59 mL/min/1.73m2 Moderately to severely decreased 30 - 44 mL/min/1.73m2 Severely decreased 15 - 29 mL/min/1.73m2 Kidney Failure < 15 mL/min/1.73m2 *Relative to young adult level Estimated glomerular [...] interpretive data was last reviewed 2021. Blood 10/22/2024 1:51 PM [employer] 10/22/2024 7:49 PM [employer] James Robert DO LAB BLOOD ORDERABLES Final R esult Performing Organization Address City/[facility]/ZIP Co de Phone Number [facility]ILPA BR[facility] [address] Department [place] [address] * (ABNORMAL) Differential, auto (10/22/2024 1:51 PM [employer]) Neutrophil abs 3.5 1.5 - 6.5 K/cumm Imm gran abs 0.0 0.0 - 0.1 K/cumm [facility] Lymphocyte abs 0.3(L) 0.8 - 3.3 K/cumm [facility] Monocyte abs 1.1(H) 0.2 - 0.8 K/cumm [facility] Eosinophil abs 0.4 0.0 - 0.5 K/cumm [facility] Basophil abs 0.0 0.0 - 0.1 K/cumm [facility] Neutrophil pct 65.4 % [facility] Comment: Consistent with previous result Interpretive Data Percent cell count reference ranges are not reported, since discordance with absolute values may lead to misinterpretation of CBC data. Current Interpretive Data was last revised on 2018. Imm gran pct 0.4 % [facility] Comment: Interpretive Data Percent cell count reference ranges are not reported, since discordance with absolute values may lead to misinterpretation of CBC data. Current Interpretive Data was last revised on 2018. Lymphocyte pct 6.1 % [facility] Comment: Interpretive Data Percent cell count reference ranges are not reported, since discordance with absolute values may lead to misinterpretation of CBC data. Current Interpretive Data was last revised on 2018. Monocyte pct 20.3 % [facility] Comment: Interpretive Data Percent cell count reference ranges are not reported, since discordance with absolute values may lead to misinterpretation of CBC data. Current Interpretive Data was last revised on 2018. Eosinophil pct 7.0 % [facility] Comment: Interpretive Data Percent cell count reference ranges are not reported, since discordance with absolute values may lead to misinterpretation of CBC data. Current Interpretive Data was last revised on 2018. Basophil pct 0.8 % [facility] Comment: Interpretive Data Percent cell count reference ranges are not reported, since discordance with absolute values may lead to misinterpretation of CBC data. Current Interpretive Data was last revised on 2018. Blood 10/22/2024 1:51 PM [employer] 10/22/2024 7:31 PM [employer] us James Robert DO LAB BLOOD ORDERABLES Final R esult [facility] [address] Department [place] [address] * (ABNORMAL) CBC with auto differential (10/22/2024 1:51 PM [employer]) WBC 5.3 3.8 - 9.9 K/cumm Hgb 11.0(L) 13.0 - 17.5 g/dL [facility] Hct 35.2(L) 38.9 - 50.3 % [facility] CH Plt 191 150 - 400 K/cumm [facility] MPV 10.9 9.1 - 12.3 fL [facility] RBC 3.71(L) 4.30 - 5.80 M/cumm [facility] MCV 94.9 81.3 - 96.4 fL [facility] MCH 29.6 27.1 - 33.3 pg [facility] MCHC 31.3(L) 32.3 - 35.7 g/dL [facility] RDW CV 15.0(H) 11.1 - 14.9 % [facility] RDW SD 51.5(H) 35.7 - 48.1 fL [facility] NRBC abs 0.00 0.00 - 0.01 K/cumm [facility] Blood 10/22/2024 1:51 PM [employer] 10/22/2024 7:31 PM [employer] James Robert DO LAB BLOOD ORDERABLES Final R esult [facility] [address] Department of Laboratories [place], [place] [id number] * (ABNORMAL) Comprehensive metabolic panel (10/22/2024 1:51 PM [employer]) Sodium 142 135 - 145 mmol/L Potassium, pl 3.9 3.3 - 4.9 mmol/L [facility] Chloride 104 97 - 110 mmol/L [facility] CO2 26 22 - 32 mmol/L [facility] Anion gap 12 2 - 15 mmol/L [facility] BUN 10 6 - 25 mg/dL [facility] Creatinine 0.70(L) 0.80 - 1.30 mg/dL [facility] Glucose 91 70 - 199 mg/dL [facility] Comment: Interpretive Data Fasting glucose >/= 126 mg/dl is diagnostic for diabetes. Fasting is defined as no caloric intake [...] classification and Diagnosis of Diabetes Diabetes Care 2021; 46: S19-S40. Current interpretive data was last revised 2022. Calcium 9.3 8.5 - 10.3 mg/dL [facility] Bilirubin, total 0.4 0.1 - 1.2 mg/dL [facility] Protein, pl 7.3 6.5 - 8.5 g/dL [facility] Albumin 3.9 3.5 - 5.0 g/dL [facility] Alk phos 106 40 - 130 Units/L [facility] ALT 15 7 - 55 Units/L [facility] AST 26 10 - 50 Units/L [facility] Blood 10/22/2024 1:51 PM [employer] 10/22/2024 7:31 PM [employer] us James Robert DO LAB BLOOD ORDERABLES Final R esult [facility] [address] [place] [address] * RAD ONC ARIA SESSION SUMMARY (10/19/2024 1:14 PM [employer]) Course Name [id number] ARIA Course Plan Date 08/20/2024 12:00 PM ARIA Elapsed Days 44 ARIA Treatment Start Date 09/05/2024 ARIA Treatment Site [id number] ARIA Dose Given To Date (cGy) 7,000 ARIA Session Dosage Given (cGy) 250 ARIA Plan ID [email or web address] NS ARIA Fractions Treated 28 ARIA Prescribed Dose Per Fraction (cGy) 250 ARIA Prescribed Total Dose (cGy) 7,000 ARIA 10/19/2024 1:14 PM [employer] us Not In File Miscellaneous RADIATION ONCOLOGY ORD ERABLES Final Result [facility] * RAD ONC ARIA SESSION SUMMARY (10/18/2024 12:57 PM [employer]) Course Name [id number] [id number] ARIA Course Plan Date 08/20/2024 12:00 PM ARIA Elapsed Days 43 ARIA Treatment Start Date 09/05/2024 ARIA Treatment Site [id number]_7000 ARIA Dose Given To Date (cGy) 6,750 ARIA Session Dosage Given (cGy) 250 ARIA Plan ID PROSTATE_L NS ARIA Fractions Treated 27 ARIA Prescribed Dose Per Fraction (cGy) 250 ARIA Prescribed Total Dose (cGy) 7,000 ARIA 10/18/2024 12:5 7 PM [employer] DEPARTMENT us Not In File Miscellaneous RADIATION ONCOLOGY ORD ERABLES Final Result Performing Organization Address City/[facility]/ZIP Co de Phone Number ARIA * RAD ONC ARIA SESSION SUMMARY (10/17/2024 1:16 PM [employer]) Course Name [email or web address] ARIA Course Plan Date 08/20/2024 12:00 PM ARIA Elapsed Days 42 ARIA Treatment Start Date 09/05/2024 ARIA Treatment Site [id number]_7000 ARIA Dose Given To Date (cGy) 6,500 ARIA Session Dosage Given (cGy) 250 ARIA Plan ID PROSTATE_L NS ARIA Fractions Treated 26 ARIA Prescribed Dose Per Fraction (cGy) 250 ARIA Prescribed Total Dose (cGy) 7,000 ARIA 10/17/2024 1:16 PM [employer] DEPARTMENT us Not In File Miscellaneous RADIATION ONCOLOGY ORD ERABLES Final Result ARIA * RAD ONC ARIA SESSION SUMMARY (10/16/2024 1:07 PM [employer] DE[employer]) Course Name [email or web address]_[email or web address] ARIA Course Plan Date 08/20/2024 12:00 PM ARIA Elapsed Days 41 ARIA Treatment Start Date 09/05/2024 ARIA Treatment Site [id number]_7000 ARIA Dose Given To Date (cGy) 6,250 ARIA Session Dosage Given (cGy) 250 ARIA Plan ID PROSTATE_L NS ARIA Fractions Treated 25 ARIA Prescribed Dose Per Fraction (cGy) 250 ARIA Prescribed Total Dose (cGy) 7,000 ARIA 10/16/2024 1:07 PM [employer] DEPARTMENT us Not In File Miscellaneous RADIATION ONCOLOGY ORD ERABLES Final Result Performing Organization Address [facility] Co de Phone Number TYRONE * RAD ONC ARIA SESSION SUMMARY (10/15/2024 1:15 PM [employer] DEPART[employer]) Course Name C1_PROSTAT E_2023 ARIA Course Plan Date 08/20/2024 12:00 PM ARIA Elapsed Days 40 ARIA Treatment Start Date 09/05/2024 ARIA Treatment Site [id number]_7000 ARIA Dose Given To Date (cGy) 6,000 ARIA Session Dosage Given (cGy) 250 ARIA Plan ID PROSTATE_L NS ARIA Fractions Treated 24 ARIA Prescribed Dose Per Fraction (cGy) 250 ARIA Prescribed Total Dose (cGy) 7,000 ARIA 10/15/2024 1:15 PM [employer] DEPARTMENT us Not In File Miscellaneous RADIATION ONCOLOGY ORD ERABLES Final Result Performing Organization Address [facility] Co de Phone Number ARIKay * RAD ONC ARIA SESSION SUMMARY (10/12/2024 1:12 PM [employer]PART[employer]) Course Name [email or web address]_PROSTAT E_2023 ARIA Course Plan Date 08/20/2024 12:00 PM ARIA Elapsed Days 37 ARIA Treatment Start Date 09/05/2024 ARIA Treatment Site [id number]_7000 ARIA Dose Given To Date (cGy) 5,750 ARIA Session Dosage Given (cGy) 250 ARIA Plan ID PROSTATE_L NS ARIA Fractions Treated 23 ARIA Prescribed Dose Per Fraction (cGy) 250 ARIA Prescribed Total Dose (cGy) 7,000 ARIA 10/12/2024 1:12 PM [employer] DEPARTMENT us Not In File Miscellaneous RADIATION ONCOLOGY ORD ERABLES Final Result ARIA * RAD ONC ARIA SESSION SUMMARY (10/11/2024 1:51 PM [employer] DEPARTMENT) Course Name [email or web address]_PROSTAT E ARIA Course Plan Date 08/20/2024 12:00 PM ARIA Elapsed Days 36 ARIA Treatment Start Date 09/05/2024 ARIA Treatment Site [id number]_7000 ARIA Dose Given To Date (cGy) 5,500 ARIA Session Dosage Given (cGy) 250 ARIA Plan ID PROSTATE_L NS ARIA Fractions Treated 22 ARIA Prescribed Dose Per Fraction (cGy) 250 ARIA Prescribed Total Dose (cGy) 7,000 ARIA 10/11/2024 1:51 PM [employer] DEPARTMENT us Not In File Miscellaneous RADIATION ONCOLOGY ORD ERABLES Final Result Performing Organization Address [facility] Co de Phone Number ARIA * RAD ONC ARIA SESSION SUMMARY (10/10/2024 1:10 PM [employer] DEPART[employer]) Course Name [email or web address]_[email or web address] ARIA Course Plan Date 08/20/2024 12:00 PM ARIA Elapsed Days 35 ARIA Treatment Start Date 09/05/2024 ARIA Treatment Site [id number]_7000 ARIA Dose Given To Date (cGy) 5,250 ARIA Session Dosage Given (cGy) 250 ARIA Plan ID PROSTATE_L NS ARIA Fractions Treated 21 ARIA Prescribed Dose Per Fraction (cGy) 250 ARIA Prescribed Total Dose (cGy) 7,000 ARIA 10/10/2024 1:10 PM [employer]PART[employer] us Not In File Miscellaneous RADIATION ONCOLOGY ORD ERABLES Final Result ARIA * RAD ONC ARIA SESSION SUMMARY (10/09/2024 1:10 PM [employer]) Course Name [email or web address] ARIA Course Plan Date 08/20/2024 12:00 PM ARIA Elapsed Days 34 ARIA Treatment Start Date 09/05/2024 ARIA Treatment Site [id number]_7000 ARIA Dose Given To Date (cGy) 5,000 ARIA Session Dosage Given (cGy) 250 ARIA Plan ID PROSTATE_L NS ARIA Fractions Treated 20 ARIA Prescribed Dose Per Fraction (cGy) 250 ARIA Prescribed Total Dose (cGy) 7,000 ARIA 10/09/2024 1:10 PM [employer]PART[employer] us Not In File Miscellaneous RADIATION ONCOLOGY ORD ERABLES Final Result TYRONE * RAD ONC ARIA SESSION SUMMARY (10/08/2024 1:12 PM [employer]) Course Name C1_PROSTAT E_2023 ARIA Course Plan Date 08/20/2024 12:00 PM ARIA Elapsed Days 33 ARIA Treatment Start Date 09/05/2024 ARIA Treatment Site [id number]_7000 ARIA Dose Given To Date (cGy) 4,750 ARIA Session Dosage Given (cGy) 250 ARIA Plan ID PROSTATE_L NS ARIA Fractions Treated 19 ARIA Prescribed Dose Per Fraction (cGy) 250 ARIA Prescribed Total Dose (cGy) 7,000 ARIA 10/08/2024 1:12 PM [employer] DEPART[employer] us Not In File Miscellaneous RADIATION ONCOLOGY ORD ERABLES Final Result Performing Organization Address [facility] Co de Phone Number TYRONE * RAD ONC ARIA SESSION SUMMARY (10/05/2024 1:12 PM [employer]) Course Name C1_PROSTAT E_2023 ARIA Course Plan Date 08/20/2024 12:00 PM ARIA Elapsed Days 30 ARIA Treatment Start Date 09/05/2024 ARIA Treatment Site [id number]_7000 ARIA Dose Given To Date (cGy) 4,500 ARIA Session Dosage Given (cGy) 250 ARIA Plan ID PROSTATE_L NS ARIA Fractions Treated 18 ARIA Prescribed Dose Per Fraction (cGy) 250 ARIA Prescribed Total Dose (cGy) 7,000 ARIA 10/05/2024 1:12 PM [employer] DEPART[employer] us Not In File Miscellaneous RADIATION ONCOLOGY ORD ERABLES Final Result TYRONE * RAD ONC ARIA SESSION SUMMARY (10/04/2024 1:09 PM [employer] DEPARTMENT) Course Name C1_PROSTAT E_2023 ARIA Course Plan Date 08/20/2024 12:00 PM ARIA Elapsed Days 29 ARIA Treatment Start Date 09/05/2024 ARIA Treatment Site [id number]_7000 ARIA Dose Given To Date (cGy) 4,250 ARIA Session Dosage Given (cGy) 250 ARIA Plan ID PROSTATE_L NS ARIA Fractions Treated 17 ARIA Prescribed Dose Per Fraction (cGy) 250 ARIA Prescribed Total Dose (cGy) 7,000 ARIA 10/04/2024 1:09 PM [employer] DEPART[employer] us Not In File Miscellaneous RADIATION ONCOLOGY ORD ERABLES Final Result Performing Organization Address [facility] Co de Phone Number ARIKay * RAD ONC ARIA SESSION SUMMARY (10/03/2024 1:14 PM [employer]PART[employer]) Course Name C1_PROSTAT E_2023 ARIA Course Plan Date 08/20/2024 12:00 PM ARIA Elapsed Days 28 ARIA Treatment Start Date 09/05/2024 ARIA Treatment Site [id number]_7000 ARIA Dose Given To Date (cGy) 4,000 ARIA Session Dosage Given (cGy) 250 ARIA Plan ID PROSTATE_L NS ARIA Fractions Treated 16 ARIA Prescribed Dose Per Fraction (cGy) 250 ARIA Prescribed Total Dose (cGy) 7,000 ARIA 10/03/2024 1:14 PM [employer] DEPART[employer] us Not In File Miscellaneous RADIATION ONCOLOGY ORD ERABLES Final Result TYRONE * RAD ONC ARIA SESSION SUMMARY (10/02/2024 1:07 PM [employer] DEPART[employer]) Course Name [email or web address]_PROSTAT E ARIA Course Plan Date 08/20/2024 12:00 PM ARIA Elapsed Days 27 ARIA Treatment Start Date 09/05/2024 ARIA Treatment Site [id number]_7000 ARIA Dose Given To Date (cGy) 3,750 ARIA Session Dosage Given (cGy) 250 ARIA Plan ID PROSTATE_L NS ARIA Fractions Treated 15 ARIA Prescribed Dose Per Fraction (cGy) 250 ARIA Prescribed Total Dose (cGy) 7,000 ARIA 10/02/2024 1:07 PM [employer]PART[employer] us Not In File Miscellaneous RADIATION ONCOLOGY ORD ERABLES Final Result Performing Organization Address City/[facility] Co de Phone Number ARIA * RAD ONC ARIA SESSION SUMMARY (09/28/2024 1:13 PM [employer]) Course Name [email or web address]_PROSTAT E ARIA Course Plan Date 08/20/2024 12:00 PM ARIA Elapsed Days 23 ARIA Treatment Start Date 09/05/2024 ARIA Treatment Site [id number]_7000 ARIA Dose Given To Date (cGy) 3,500 ARIA Session Dosage Given (cGy) 250 ARIA Plan ID PROSTATE_L NS ARIA Fractions Treated 14 ARIA Prescribed Dose Per Fraction (cGy) 250 ARIA Prescribed Total Dose (cGy) 7,000 ARIA 09/28/2024 1:13 PM [employer] DEPARTMENT us Not In File Miscellaneous RADIATION ONCOLOGY ORD ERABLES Final Result Performing Organization Address [facility] Co de Phone Number ARIA * RAD ONC ARIA SESSION SUMMARY (09/27/2024 1:07 PM [employer] DEPARTMENT) Course Name C1_PROSTAT E_2023 ARIA Course Plan Date 08/20/2024 12:00 PM ARIA Elapsed Days 22 ARIA Treatment Start Date 09/05/2024 ARIA Treatment Site [id number]_7000 ARIA Dose Given To Date (cGy) 3,250 ARIA Session Dosage Given (cGy) 250 ARIA Plan ID PROSTATE_L NS ARIA Fractions Treated 13 ARIA Prescribed Dose Per Fraction (cGy) 250 ARIA Prescribed Total Dose (cGy) 7,000 ARIA 09/27/2024 1:07 PM [employer] DEPARTMENT us Not In File Miscellaneous RADIATION ONCOLOGY ORD ERABLES Final Result TYRONE * RAD ONC ARIA SESSION SUMMARY (09/21/2024 1:09 PM [employer] DEPARTMENT) Course Name [email or web address]_PROSTAT E ARIA Course Plan Date 08/20/2024 12:00 PM ARIA Elapsed Days 16 ARIA Treatment Start Date 09/05/2024 ARIA Treatment Site [id number]_7000 ARIA Dose Given To Date (cGy) 3,000 ARIA Session Dosage Given (cGy) 250 ARIA Plan ID PROSTATE_L NS ARIA Fractions Treated 12 ARIA Prescribed Dose Per Fraction (cGy) 250 ARIA Prescribed Total Dose (cGy) 7,000 ARIA 09/21/2024 1:09 PM [employer] DEPARTMENT us Not In File Miscellaneous RADIATION ONCOLOGY ORD ERABLES Final Result Performing Organization Address [facility] de Phone Number ARIKay * RAD ONC ARIA SESSION SUMMARY (09/20/2024 1:11 PM [employer] DEPARTMENT) Course Name C1_PROSTAT E ARIA Course Plan Date 08/20/2024 12:00 PM ARIA Elapsed Days 15 ARIA Treatment Start Date 09/05/2024 ARIA Treatment Site [id number]_7000 ARIA Dose Given To Date (cGy) 2,750 ARIA Session Dosage Given (cGy) 250 ARIA Plan ID PROSTATE_L NS ARIA Fractions Treated 11 ARIA Prescribed Dose Per Fraction (cGy) 250 ARIA Prescribed Total Dose (cGy) 7,000 ARIA 09/20/2024 1:11 PM [employer] DEPARTMENT us Not In File Miscellaneous RADIATION ONCOLOGY ORD ERABLES Final Result Performing Organization Address City/[facility] Co de Phone Number CELESTEA * RAD ONC ARIA SESSION SUMMARY (09/18/2024 1:16 PM [employer] DEPART[employer]) Course Name C1_PROSTAT E ARIA Course Plan Date 08/20/2024 12:00 PM ARIA Elapsed Days 13 ARIA Treatment Start Date 09/05/2024 ARIA Treatment Site [id number]_7000 ARIA Dose Given To Date (cGy) 2,500 ARIA Session Dosage Given (cGy) 250 ARIA Plan ID PROSTATE_L NS ARIA Fractions Treated 10 ARIA Prescribed Dose Per Fraction (cGy) 250 ARIA Prescribed Total Dose (cGy) 7,000 ARIA 09/18/2024 1:16 PM [employer] DEPARTMENT us Not In File Miscellaneous RADIATION ONCOLOGY ORD ERABLES Final Result ARIA * RAD ONC ARIA SESSION SUMMARY (09/17/2024 1:16 PM [employer] DEPART[employer]) Course Name C1_PROSTAT E ARIA Course Plan Date 08/20/2024 12:00 PM ARIA Elapsed Days 12 ARIA Treatment Start Date 09/05/2024 ARIA Treatment Site [id number]_7000 ARIA Dose Given To Date (cGy) 2,250 ARIA Session Dosage Given (cGy) 250 ARIA Plan ID PROSTATE_L NS ARIA Fractions Treated 9 ARIA Prescribed Dose Per Fraction (cGy) 250 ARIA Prescribed Total Dose (cGy) 7,000 ARIA 09/17/2024 1:16 PM [employer] DEPARTMENT us Not In File Miscellaneous RADIATION ONCOLOGY ORD ERABLES Final Result ARIA * RAD ONC ARIA SESSION SUMMARY (09/14/2024 1:12 PM [employer] DEPARTMENT) Course Name [email or web address]_PROSTAT E ARIA Course Plan Date 08/20/2024 12:00 PM ARIA Elapsed Days 9 ARIA Treatment Start Date 09/05/2024 ARIA Treatment Site [id number]_7000 ARIA Dose Given To Date (cGy) 2,000 ARIA Session Dosage Given (cGy) 250 ARIA Plan ID PROSTATE_L NS ARIA Fractions Treated 8 ARIA Prescribed Dose Per Fraction (cGy) 250 ARIA Prescribed Total Dose (cGy) 7,000 ARIA 09/14/2024 1:12 PM [employer] DEPARTMENT us Not In File Miscellaneous RADIATION ONCOLOGY ORD ERABLES Final Result ARIA * RAD ONC ARIA SESSION SUMMARY (09/13/2024 1:23 PM [employer] DEPARTMENT) Course Name C1_PROSTAT E ARIA Course Plan Date 08/20/2024 12:00 PM ARIA Elapsed Days 8 ARIA Treatment Start Date 09/05/2024 ARIA Treatment Site [id number]_7000 ARIA Dose Given To Date (cGy) 1,750 ARIA Session Dosage Given (cGy) 250 ARIA Plan ID PROSTATE_L NS ARIA Fractions Treated 7 ARIA Prescribed Dose Per Fraction (cGy) 250 ARIA Prescribed Total Dose (cGy) 7,000 ARIA 09/13/2024 1:23 PM [employer] DEPARTMENT us Not In File Miscellaneous RADIATION ONCOLOGY ORD ERABLES Final Result Performing Organization Address [facility] Co de Phone Number ARIA * RAD ONC ARIA SESSION SUMMARY (09/12/2024 1:16 PM [employer] DEPARTMENT) Course Name C1_PROSTAT E ARIA Course Plan Date 08/20/2024 12:00 PM ARIA Elapsed Days 7 ARIA Treatment Start Date 09/05/2024 ARIA Treatment Site [id number]_7000 ARIA Dose Given To Date (cGy) 1,500 ARIA Session Dosage Given (cGy) 250 ARIA Plan ID PROSTATE_L NS ARIA Fractions Treated 6 ARIA Prescribed Dose Per Fraction (cGy) 250 ARIA Prescribed Total Dose (cGy) 7,000 ARIA 09/12/2024 1:16 PM [employer] DEPARTMENT us Not In File Miscellaneous RADIATION ONCOLOGY ORD ERABLES Final Result ARIA * RAD ONC ARIA SESSION SUMMARY (09/11/2024 1:16 PM [employer] DEPARTMENT) Course Name C1_PROSTAT E ARIA Course Plan Date 08/20/2024 12:00 PM ARIA Elapsed Days 6 ARIA Treatment Start Date 09/05/2024 ARIA Treatment Site [id number]_7000 ARIA Dose Given To Date (cGy) 1,250 ARIA Session Dosage Given (cGy) 250 ARIA Plan ID PROSTATE_L NS ARIA Fractions Treated 5 ARIA Prescribed Dose Per Fraction (cGy) 250 ARIA Prescribed Total Dose (cGy) 7,000 ARIA 09/11/2024 1:16 PM [employer] DEPARTMENT us Not In File Miscellaneous RADIATION ONCOLOGY ORD ERABLES Final Result ARIA * RAD ONC ARIA SESSION SUMMARY (09/10/2024 1:15 PM [employer] DEPARTMENT) Course Name [email or web address]_PROSTAT ARIA Course Plan Date 08/20/2024 12:00 PM ARIA Elapsed Days 5 ARIA Treatment Start Date 09/05/2024 ARIA Treatment Site [id number]_7000 ARIA Dose Given To Date (cGy) 1,000 ARIA Session Dosage Given (cGy) 250 ARIA Plan ID PROSTATE_L NS ARIA Fractions Treated 4 ARIA Prescribed Dose Per Fraction (cGy) 250 ARIA Prescribed Total Dose (cGy) 7,000 ARIA 09/10/2024 1:15 PM [employer] DEPARTMENT us Not In File Miscellaneous RADIATION ONCOLOGY ORD ERABLES Final Result ARIA * RAD ONC ARIA SESSION SUMMARY (09/07/2024 1:17 PM [employer] DEPARTMENT) Course Name [email or web address]_PROSTAT ARIA Course Plan Date 08/20/2024 12:00 PM ARIA Elapsed Days 2 ARIA Treatment Start Date 09/05/2024 ARIA Treatment Site [id number]_7000 ARIA Dose Given To Date (cGy) 750 ARIA Session Dosage Given (cGy) 250 ARIA Plan ID PROSTATE_L NS ARIA Fractions Treated 3 ARIA Prescribed Dose Per Fraction (cGy) 250 ARIA Prescribed Total Dose (cGy) 7,000 ARIA 09/07/2024 1:17 PM [employer] DEPARTMENT us Not In File Miscellaneous RADIATION ONCOLOGY ORD ERABLES Final Result Performing Organization Address City/State/[facility] Co de Phone Number ARIA * RAD ONC ARIA SESSION SUMMARY (09/06/2024 1:12 PM [employer] DEPARTMENT) Course Name C1_PROSTAT E_2023 ARIA Course Plan Date 08/20/2024 12:00 PM ARIA Elapsed Days 1 ARIA Treatment Start Date 09/05/2024 ARIA Treatment Site [id number]_7000 ARIA Dose Given To Date (cGy) 500 ARIA Session Dosage Given (cGy) 250 ARIA Plan ID PROSTATE_L NS ARIA Fractions Treated 2 ARIA Prescribed Dose Per Fraction (cGy) 250 ARIA Prescribed Total Dose (cGy) 7,000 ARIA 09/06/2024 1:12 PM [employer] DEPARTMENT us Not In File Miscellaneous RADIATION ONCOLOGY ORD ERABLES Final Result Performing Organization Address [facility] de Phone Number ARIA * RAD ONC ARIA SESSION SUMMARY (09/05/2024 1:23 PM [employer] DEPARTMENT) Course Name C1_PROSTAT E_2023 ARIA Course Plan Date 08/20/2024 12:00 PM ARIA Elapsed Days 0 ARIA Treatment Start Date 09/05/2024 ARIA Treatment Site [id number]_7000 ARIA Dose Given To Date (cGy) 250 ARIA Session Dosage Given (cGy) 250 ARIA Plan ID PROSTATE_L NS ARIA Fractions Treated 1 ARIA Prescribed Dose Per Fraction (cGy) 250 ARIA Prescribed Total Dose (cGy) 7,000 ARIA 09/05/2024 1:23 PM [employer] DEPARTMENT us Not In File Miscellaneous RADIATION ONCOLOGY ORD ERABLES Final Result Performing Organization Address City/State/[facility] Co de Phone Number ARIA from Last 3 Months Insurance FOR LIFE [employer] MEDICARE PPO MEDICARE FOR LIFE [employer] FOR LIFE [employer] CHOICE MEDICARE PPO [place] [id number] Care Teams Engravings Polisher Relationship Specialty Start Date End Date Corey Angel MD [address] INTERNAL MEDICINE [place], [place] [id number] PCP - General Internal Medicine 06/18/21 Clem Thomson MD [address] [place] [address] Referring Physician Urology 06/14/24 Harman Morales MD [address] [place] [id number] Radiation Oncologist Radiation Oncology 06/22/24 James Robert DO [address] [facility], [facility] [address] [place] [address] Medical Oncologist/Medical Affairs Leader Hematology and Oncology 07/12/24
--- OUTSIDE RECORDS SUMMARY | 2024-11-30 11:32 | XMS_ITS | Encounter Summary ---
Author Organization [facility] Address [address] [place] [address] Phone Care Team Providers Care Flute Grinder Name Role Phone Corey Angel MD Primary Care Provider [phone] Clem Thomson MD Unavailable Harman Morales MD Unavailable [phone] James Robert DO Unavailable Encounter Details Date Type Department Care Team (Late st Contact Info) Description 11/19/2024 Telephone [facility] Cardiology [address] [facility] 8th [place] [address] [place] [address] Dana López Social History Tobacco Use Types Packs/Day Years [...] on file Legal Sex Male 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 Outside Stress and PASQUALE reports in [facility] Requested images from [facility]. Requested records from [facility] ORATION SECRETARY * Telephone Encounter - Dana López - 11/19/2024 3:57 PM CST Diagnosis/Reason for Appointment: Medication causing blood clot Referring Physician: PCP Ref Ph: If Referring MD is not PCP, list specialty: Triage Questions Yes No Who/Where/When/Notes Have you ever been diagnosed with cancer, or undergone cancer treatments? [x] [] If 'Yes', Schedulefirst available with Cardio-Oncology If yes where were you treated? [facility] Have you ever seen a Barrel Stave Inspector in an office setting? [] [x] IF SCHEDULING PATIENT WITH MATERNAL Have you had a baby in the last year or are you ? (If yes send to Dr. Moura for review) [] [] Have you had heart or blood pressure problems during a previous ? (If yes send to Dr. Moura for review) [] [] Dr. Atiya Saavedra Patients only: Are you a hemodialysis or peritoneal dialysis patient? (If yes then patient must be referred from another MD, DO NOT SCHEDULE) [] [] Do you regularly exercise, or play any competitive or recreational sports? (If yes proceed to next question) [] [] Are your symptoms or concerns associated with this exercise or activity? (If yes schedule in [facility]) [] [] Patient History Questions Yes No Where/When/Notes Have you EVER been hospitalized for ANY cardiac issue? [] [x] Have you ever had any cardiac testing, imaging, or procedures? (Testing - echo, EKG, stress) (Imaging - Cardiac MRI, CT or calcium scoring) (Procedure - Ablation, Cardioversion, CABG, Cath) [x] [] All testing in epic Have you ever had a sleep study? [] [x] Do you have a device? If yes what type? (Pacemaker, Defibrillator, Implanted Loop Recorder) [] [x] If yes, where and when was device put in? Global Regulatory Affairs Manager? ([employer], [employer], [employer]) Appointment Date: 01/07/25 Provider: Beau Location: [facility] [x] Confirm appt date, time, provider and location. [x] Advise pt to arrive 15- 20 min early. [x] Advise patient to bring medications/list, photo ID and insurance card [x] Advise of New PatientPacket being mailed to them. ORATION SECRETARY documented in this encounter Plan of Treatment Not on file documented as of this encounter Visit Diagnoses Not on filedocumented in this encounter Care Teams Flute Grinder Relationship Specialty Start Date End Date Corey Angel MD [address] INTERNAL MEDICINE [place], [place] [phone] PCP - General Internal Medicine 06/18/21 Clem Thomson MD [address] [facility] [address] [place] [address] Referring Physician Urology 06/14/24 Harman Morales MD [facility] [address] [place], [place] [phone] Radiation Oncologist Radiation Oncology 06/22/24 James Robert DO [address] [facility], [address] [place], [place] [address] Medical Oncologist/Executive Administrative Asst Hematology and Oncology 07/12/24 documented as of this encounter
--- OUTSIDE RECORDS SUMMARY | 2024-11-30 11:32 | XMS_ITS | Referral Summary ---
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 Name Role Phone Corey Angel MD Primary Care Provider [phone] Clem Thomson MD Unavailable [phone] Harman Morales MD Unavailable [phone] James Robert DO Unavailable [phone] Encounters Date Type Department Care Team Description 11/27/2024 1:30 PM SKEIN WASHER Office Visit [facility] Medical Office Building 2 Radiation Oncology [address] [place] [phone] Yanci Garcia PA Prostate cancer (HCC) (Primary Dx); Personal history of radiation therapy 11/22/2024 3:10 PM SKEIN WASHER - 11/22/2024 11:59 PM SKEIN WASHER Hospital Encounter [address] [address] Prostate cancer (HCC) Discharge Disposition: Discharge to home or self care 11/22/2024 3:00 PM SKEIN WASHER Lab [facility] Outpatient Lab at [address] [phone] Prostate cancer (HCC) (Primary Dx) 11/19/[address] 8[address] [place] [address] [place] [address] Dana López 11/16/2024 Telephone [facility] Oncology [address] [facility] [address] [place] [phone] Sherin Armenta CMA 11/06/2024 Telephone [facility] [address] [place] [address] Referral, Self Appointment Request 10/29/2024 Orders Only [facility] Medical Office Building 2 Radiation Oncology [address] [place] [id number] Taya Cartagena RN Prostate cancer (HCC) (Primary Dx) 10/22/2024 1:51 PM SKEIN WASHER - 10/22/2024 11:59 PM SKEIN WASHER [facility] [address] [place] [address] Prostate cancer (HCC) Discharge Disposition: Discharge to home or self care 10/22/2024 2:00 PM SKEIN WASHER Lab [facility] Outpatient Lab at [address] [phone] Prostate cancer (HCC) (Primary Dx) 10/19/2024 Completion of Therapy [facility] Office Building 2 Radiation Oncology [address] [place] [phone] Harman Morales MD 10/19/2024 OTV [facility] Office Building 2 Radiation Oncology [address] [place] [phone] Ariela Boyle MD Prostate cancer (HCC) (Primary Dx) 10/19/2024 Orders Only RAD ONC TREATMENTS Miscellaneous, Not In File 10/19/2024 1:00 PM SKEIN WASHER Treatment [facility] Medical Office Building 2 Radiation Oncology [address] [place] [phone] Harman Morales MD 10/18/2024 Orders Only RAD ONC TREATMENTS Miscellaneous, Not In File 10/18/2024 1:00 PM SKEIN WASHER Treatment [facility] Medical Office Building 2 Radiation Oncology [address] [place] [phone] 10/17/2024 Orders Only RAD ONC TREATMENTS Miscellaneous, Not In File 10/17/2024 1:[address] [facility] Medical Office Building 2 Radiation Oncology [address] [place] [address] 10/16/2024 Orders Only RAD ONC TREATMENTS Miscellaneous, Not In File 10/16/2024 1:[address] [facility] Medical Office Building 2 Radiation Oncology [address] [place] [phone] 10/15/2024 Orders Only RAD ONC TREATMENTS Miscellaneous, Not In File 10/15/2024 1:[address] [facility] Medical Office Building 2 Radiation Oncology [address] [place] [phone] 10/12/2024 [facility] 2 Radiation Oncology [address] [place] [phone] Harman Morales MD 10/12/2024 Orders Only RAD ONC TREATMENTS Miscellaneous, Not In File 10/12/2024 1:00 PM [facility] Medical Office Building 2 Radiation Oncology [address] [place] [phone] 10/11/2024 Orders Only RAD ONC TREATMENTS Miscellaneous, Not In File 10/11/2024 1:00 PM [facility] Medical Office Building 2 Radiation Oncology [address] [place] [address] 10/10/2024 Orders Only RAD ONC TREATMENTS Miscellaneous, Not In File 10/10/2024 1:[address] [facility] Medical Office Building 2 Radiation Oncology [address] [place] [address] 10/09/2024 Orders Only RAD ONC TREATMENTS Miscellaneous, Not In File 10/09/2024 1:00 PM [facility] Medical Office Building 2 Radiation Oncology [address] [place] [phone] 10/08/2024 Orders Only RAD ONC TREATMENTS Miscellaneous, Not In File 10/08/2024 1:[address] [facility] Medical Office Building 2 Radiation Oncology [address] [place] [address] 10/05/2024 [facility] 2 Radiation Oncology [address] [place] [phone] Harman Morales MD 10/05/2024 Orders Only RAD ONC TREATMENTS Miscellaneous, Not In File 10/05/2024 Orders Only [facility] Medical Office Building 2 Radiation Oncology [address] [place] [phone] Taya Cartagena, MICAH Prostate cancer (HCC) (Primary Dx) 10/05/2024 1:00 PM SKEIN WASHER Treatment [facility] Medical Office Building 2 Radiation Oncology [address] [place] [phone] 10/04/2024 Orders Only RAD ONC TREATMENTS Miscellaneous, Not In File 10/04/2024 1:00 PM SKEIN WASHER Treatment [facility] Medical Office Building 2 Radiation Oncology [address] [place] [phone] 10/03/2024 Orders Only RAD ONC TREATMENTS Miscellaneous, Not In File 10/03/2024 1:00 PM SKEIN WASHER [facility] Office Building 2 Radiation Oncology [address] [place] [phone] 10/02/2024 Orders Only RAD ONC TREATMENTS Miscellaneous, Not In File 10/02/2024 1:00 PM SKEIN WASHER Treatment [facility] Medical Office Building 2 Radiation Oncology [address] [place] [phone] 09/28/2024 OTV [facility] Medical Office Building 2 Radiation Oncology [address] [place] [phone] Ariela Boyle MD Prostate cancer (HCC) (Primary Dx) 09/28/2024 Orders Only RAD ONC TREATMENTS Miscellaneous, Not In File 09/28/2024 1:[address] [facility] Medical Office Building 2 Radiation Oncology [address] [place] [phone] 09/27/2024 Orders Only RAD ONC TREATMENTS Miscellaneous, Not In File 09/27/2024 1:[address] [facility] Medical Office Building 2 Radiation Oncology [address] [place] [phone] 09/25/2024 [facility] Medical Office Building 2 Radiation Oncology [address] [place] [phone] Ariela Boyle MD 09/21/2024 OTV [facility] Medical Office Building 2 Radiation Oncology [address] [place] [phone] Harman Morales MD 09/21/2024 Orders Only RAD ONC TREATMENTS Miscellaneous, Not In File 09/21/2024 1:00 PM [facility] Medical Office Building 2 Radiation Oncology [address] [place] [phone] 09/20/2024 Orders Only RAD ONC TREATMENTS Miscellaneous, Not In File 09/20/2024 1:[address] [facility] Medical Office Building 2 Radiation Oncology [address] [place] [phone] 09/18/2024 Orders Only RAD ONC TREATMENTS Miscellaneous, Not In File 09/18/2024 1:[address] [facility] Medical Office Building 2 Radiation Oncology [address] [place] [phone] 09/17/2024 Orders Only RAD ONC TREATMENTS Miscellaneous, Not In File 09/17/2024 1:[address] [facility] Medical Office Building 2 Radiation Oncology [address] [place] [phone] 09/14/2024 [facility] Office Building 2 Radiation Oncology [address] [place] [address] [phone] Harman Morales MD 09/14/2024 Orders Only RAD ONC TREATMENTS Miscellaneous, Not In File 09/14/2024 1:[address] [facility] Medical Office Building 2 Radiation Oncology [address] [place] [address] 09/13/2024 Orders Only RAD ONC TREATMENTS Miscellaneous, Not In File 09/13/2024 1:00 PM SKEIN WASHER Treatment [facility] Medical Office Building 2 Radiation Oncology [address] [place] [phone] 09/12/2024 Orders Only RAD ONC TREATMENTS Miscellaneous, Not In File 09/12/2024 1:00 PM SKEIN WASHER Treatment [facility] Medical Office Building 2 Radiation Oncology [address] [place] [phone] 09/11/2024 Orders Only RAD ONC TREATMENTS Miscellaneous, Not In File 09/11/2024 1:00 PM SKEIN WASHER Treatment [facility] Medical Office Building 2 Radiation Oncology [address] [place] [address] 09/10/2024 Orders Only RAD ONC TREATMENTS Miscellaneous, Not In File 09/10/2024 1:00 PM SKEIN WASHER Treatment [facility] Medical Office Building 2 Radiation Oncology [address] [place] [phone] 09/07/2024 OTV [facility] Medical Office Building 2 Radiation Oncology [address] [place] [address] [phone] Harman Morales MD 09/07/2024 Orders Only RAD ONC TREATMENTS Miscellaneous, Not In File 09/07/2024 1:00 PM SKEIN WASHER Treatment [facility] Medical Office Building 2 Radiation Oncology [address] [place] [address] [phone] 09/06/2024 Orders Only RAD ONC TREATMENTS Miscellaneous, Not In File 09/06/2024 1:15 PM SKEIN WASHER Clinical Support [facility] Medical Office Building 2 Radiation Oncology [address] [place] [phone] Prostate cancer (HCC) (Primary Dx); Elevated PSA 09/06/2024 1:00 PM SKEIN WASHER Treatment [facility] Medical Office Building 2 Radiation Oncology [address] [place] [address] [phone] 09/05/2024 Orders Only RAD ONC TREATMENTS Miscellaneous, Not In File 09/05/2024 1:00 PM [facility] Medical Office Building 2 Radiation Oncology [address] [place] [address] [phone] Harman Morales MD 09/05/2024 1:15 PM [facility] Office Building 2 Radiation Oncology [address] [place] [phone] Harman Morales MD 09/03/2024 7:15 PM [facility] Office Building 2 Radiation Oncology [address] [place] [address] [phone] from Last 3 Months Allergies No known [...] 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 Knee pain 04/22/2016 Immunizations Immunization Administration Dates Next Due Influenza, [...] on file Legal Sex Male 2:49 AM SKEIN WASHER Gender Identity Male 05/22/2018 10:57 AM CDT Sexual Orientation Straight 11/03/2020 7: 01 PM SKEIN WASHER Occupation Industry Job Start Date Job End Date working Not on file Not on file Not on file Last Filed Vital Signs Vital Sign Reading Time Taken Comments Blood Pressure 156/101 11/27/2024 1:30 PM SKEIN WASHER Pulse 93 11/27/2024 1:30 PM SKEIN WASHER Temperature 36.2 C (97.2 F) 08/09/2024 3:04 PM SKEIN WASHER Respiratory Rate 16 08/17/2024 12:20 PM SKEIN WASHER Oxygen Saturation 99% 11/27/2024 1:30 PM SKEIN WASHER Inhaled Oxygen Concentration - - Weight 125.2 kg (276 lb) 11/27/2024 1:30 PM SKEIN WASHER Height 179.1 cm (5' 10.5 ) 08/09/2024 3:04 PM CS T Body Mass Index 39.04 08/09/2024 3:04 PM SKEIN WASHER Plan of Treatment Not on file Procedures Procedure Name Priority Date/Time Associated Diagnosis Comments TOTAL TESTOSTERONE Routine 11/22/2024 3: 10 PM SKEIN WASHER Prostate cancer (HCC) PSA DIAGNOSTIC Routine 11/22/2024 3:10 PM SKEIN WASHER Prostate cancer (HCC) EGFR Routine 10/22/2024 1:51 PM SKEIN WASHER Prostate cancer (HCC) DIFFERENTIAL AUTO Routine 10/22/2024 1:5 1 PM SKEIN WASHER Prostate cancer (HCC) CBC WITH AUTO DIFFERENTIAL Routine 10/22/2024 1:51 PM SKEIN WASHER Prostate cancer (HCC) COMPREHENSIVE METABOLIC PANEL Routine 10/22/2024 1:51 PM SKEIN WASHER Prostate cancer (HCC) RAD ONC ARIA SESSION SUMMARY 10/19/2024 1:14 PM SKEIN WASHER RAD ONC ARIA SESSION SUMMARY 10/18/2024 12:57 PM SKEIN WASHER RAD ONC ARIA SESSION SUMMARY 10/17/2024 1:16 PM SKEIN WASHER RAD ONC ARIA SESSION SUMMARY 10/16/2024 1:07 PM SKEIN WASHER RAD ONC ARIA SESSION SUMMARY 10/15/2024 1:15 PM SKEIN WASHER RAD ONC ARIA SESSION SUMMARY 10/12/2024 1:12 PM SKEIN WASHER RAD ONC ARIA SESSION SUMMARY 10/11/2024 1:51 PM SKEIN WASHER RAD ONC ARIA SESSION SUMMARY 10/10/2024 1:10 PM SKEIN WASHER RAD ONC ARIA SESSION SUMMARY 10/09/2024 1:10 PM SKEIN WASHER RAD ONC ARIA SESSION SUMMARY 10/08/2024 1:12 PM SKEIN WASHER RAD ONC ARIA SESSION SUMMARY 10/05/2024 1:12 PM SKEIN WASHER RAD ONC ARIA SESSION SUMMARY 10/04/2024 1:09 PM SKEIN WASHER RAD ONC ARIA SESSION SUMMARY 10/03/2024 1:14 PM SKEIN WASHER RAD ONC ARIA SESSION SUMMARY 10/02/2024 1:07 PM SKEIN WASHER RAD ONC ARIA SESSION SUMMARY 09/28/2024 1:13 PM SKEIN WASHER RAD ONC ARIA SESSION SUMMARY 09/27/2024 1:07 PM SKEIN WASHER RAD ONC ARIA SESSION SUMMARY 09/21/2024 1:09 PM SKEIN WASHER RAD ONC ARIA SESSION SUMMARY 09/20/2024 1:11 PM SKEIN WASHER RAD ONC ARIA SESSION SUMMARY 09/18/2024 1:16 PM SKEIN WASHER RAD ONC ARIA SESSION SUMMARY 09/17/2024 1:16 PM SKEIN WASHER RAD ONC ARIA SESSION SUMMARY 09/14/2024 1:12 PM SKEIN WASHER RAD ONC ARIA SESSION SUMMARY 09/13/2024 1:23 PM SKEIN WASHER RAD ONC ARIA SESSION SUMMARY 09/12/2024 1:16 PM SKEIN WASHER RAD ONC ARIA SESSION SUMMARY 09/11/2024 1:16 PM SKEIN WASHER RAD ONC ARIA SESSION SUMMARY 09/10/2024 1:15 PM SKEIN WASHER RAD ONC ARIA SESSION SUMMARY 09/07/2024 1:17 PM SKEIN WASHER RAD ONC ARIA SESSION SUMMARY 09/06/2024 1:12 PM SKEIN WASHER RAD ONC ARIA SESSION SUMMARY 09/05/2024 1:23 PM SKEIN WASHER from Last 3 Months Results * (ABNORMAL) Total testosterone (11/22/2024 3:10 PM SKEIN WASHER) Testosterone <3(L) 193 - 740 ng/dL Blood 11/22/2024 3:10 PM SKEIN WASHER 11/22/2024 9:25 PM SKEIN WASHER us Yanci TAN LAB BLOOD ORDERABLES Final Result SHILPA [id number] Department [place] [address] * PSA diagnostic (11/22/2024 3:10 PM SKEIN WASHER) PSA-Total <0.01 <=6.20 ng/mL Comment: Interpretive Data [...] last revised 22. Blood 11/22/2024 3:10 PM SKEIN WASHER 11/22/2024 9:25 PM SKEIN WASHER Yanci TAN LAB BLOOD ORDERABLES Final Result [facility]IL[facility] [id number] [facility] Department [place] [address] * eGFR (10/22/2024 1:51 PM SKEIN WASHER) eGFR >90 >=60 mL/min/1. 73 m2 Comment: [...] last reviewed 2021. Blood 10/22/2024 1:51 PM SKEIN WASHER 10/22/2024 7:49 PM SKEIN WASHER us James Robert DO LAB BLOOD ORDERABLES Final R esult [facility] [id number] [address] Department [place] [address] * (ABNORMAL) Differential, auto (10/22/2024 1:51 PM SKEIN WASHER) Neutrophil abs 3.5 1.5 - 6.5 K/cumm Imm gran abs 0.0 0.0 - 0.1 K/cumm [facility] Lymphocyte abs 0.3(L) 0.8 - 3.3 K/cumm [facility] Monocyte abs 1.1(H) 0.2 - 0.8 K/cumm [facility] Eosinophil abs 0.4 0.0 - 0.5 K/cumm [facility] Basophil abs 0.0 0.0 - 0.1 K/cumm [facility] Neutrophil pct 65.4 % [facility] Comment: Consistent with previous result Interpretive Data Percent cell count reference ranges are not reported, since discordance with absolute values may lead to misinterpretation of CBC data. Current Interpretive Data was last revised on 2018. Imm gran pct 0.4 % [facility] Comment: Interpretive Data Percent cell count reference ranges are not reported, since discordance with absolute values may lead to misinterpretation of CBC data. Current Interpretive Data was last revised on 2018. Lymphocyte pct 6.1 % [facility] Comment: Interpretive Data Percent cell count reference ranges are not reported, since discordance with absolute values may lead to misinterpretation of CBC data. Current Interpretive Data was last revised on 2018. Monocyte pct 20.3 % [facility] Comment: Interpretive Data Percent cell count reference ranges are not reported, since discordance with absolute values may lead to misinterpretation of CBC data. Current Interpretive Data was last revised on 2018. Eosinophil pct 7.0 % [facility] Comment: Interpretive Data Percent cell count reference ranges are not reported, since discordance with absolute values may lead to misinterpretation of CBC data. Current Interpretive Data was last revised on 2018. Basophil pct 0.8 % [facility] Comment: Interpretive Data Percent cell count reference ranges are not reported, since discordance with absolute values may lead to misinterpretation of CBC data. Current Interpretive Data was last revised on 2018. Blood 10/22/2024 1:51 PM SKEIN WASHER 10/22/2024 7:31 PM SKEIN WASHER James Salty Robert LAB BLOOD ORDERABLES Final R esult Performing Organization Address City/[facility]/ZIP Co de Phone Number SHILPA [address] [place] [address] * (ABNORMAL) CBC with auto differential (10/22/2024 1:51 PM SKEIN WASHER) Pathologist [facility] WBC 5.3 3.8 - 9.9 K/cumm Hgb 11.0(L) 13.0 - 17.5 g/dL [facility] Hct 35.2(L) 38.9 - 50.3 % [facility] Plt 191 150 - 400 K/cumm [facility] MPV 10.9 9.1 - 12.3 fL [facility] RBC 3.71(L) 4.30 - 5.80 M/cumm [facility] CH MCV 94.9 81.3 - 96.4 fL [facility] MCH 29.6 27.1 - 33.3 pg [facility] MCHC 31.3(L) 32.3 - 35.7 g/dL [facility] RDW CV 15.0(H) 11.1 - 14.9 % [facility] RDW SD 51.5(H) 35.7 - 48.1 fL [facility] NRBC abs 0.00 0.00 - 0.01 K/cumm [facility] Blood 10/22/2024 1:51 PM SKEIN WASHER 10/22/2024 7:31 PM SKEIN WASHER James Robert LAB BLOOD ORDERABLES Final R esult [facility] [place] [address] Department of [facility] [address] * (ABNORMAL) Comprehensive metabolic panel (10/22/2024 1:51 PM SKEIN WASHER) Sodium 142 135 - 145 mmol/L Potassium, pl 3.9 3.3 - 4.9 mmol/L [facility] Chloride 104 97 - 110 mmol/L [facility] CO2 26 22 - 32 mmol/L [facility] Anion gap 12 2 - 15 mmol/L [facility] BUN 10 6 - 25 mg/dL [facility] Creatinine 0.70(L) 0.80 - 1.30 mg/dL [facility] Glucose 91 70 - 199 mg/dL [facility] Comment: [...] Units/L [facility] Blood 10/22/2024 1:51 PM SKEIN WASHER 10/22/2024 7:31 PM SKEIN WASHER us James Robert DO LAB BLOOD ORDERABLES Final R esult [facility] [id number] Department [place] [address] * RAD ONC ARIA SESSION SUMMARY (10/19/2024 1:14 PM SKEIN WASHER) Course Name C1_PROSTAT E_2023 ARIA Course Plan Date 08/20/2024 12:00 PM ARIA Elapsed Days 44 ARIA Treatment Start Date 09/05/2024 ARIA Treatment Site [id number] ARIA Dose Given To Date (cGy) 7,000 ARIA Session Dosage Given (cGy) 250 ARIA Plan ID PROSTATE_L NS ARIA Fractions Treated 28 ARIA Prescribed Dose Per Fraction (cGy) 250 ARIA Prescribed Total Dose (cGy) 7,000 ARIA 10/19/2024 1:14 PM SKEIN WASHER us Not In File Miscellaneous RADIATION ONCOLOGY ORD ERABLES Final Result TYRONE * RAD ONC ARIA SESSION SUMMARY (10/18/2024 12:57 PM SKEIN WASHER) Course Name C1_PROSTAT E_2023 ARIA Course Plan [...] (cGy) 7,000 ARIA 10/18/2024 12:5 7 PM SKEIN WASHER us Not In File Miscellaneous RADIATION ONCOLOGY ORD ERABLES Final Result TYRONE * RAD ONC ARIA SESSION SUMMARY (10/17/2024 1:16 PM SKEIN WASHER) Course Name C1_PROSTAT E_2023 ARIA Course Plan Date 08/20/2024 12:00 PM ARIA Elapsed Days 42 ARIA Treatment Start Date 09/05/2024 ARIA Treatment Site [id number] ARIA Dose Given To Date (cGy) 6,500 ARIA Session Dosage Given (cGy) 250 ARIA Plan ID PROSTATE_L NS ARIA Fractions Treated 26 ARIA Prescribed Dose Per Fraction (cGy) 250 ARIA Prescribed Total Dose (cGy) 7,000 ARIA 10/17/2024 1:16 PM SKEIN WASHER us Not In File Miscellaneous RADIATION ONCOLOGY ORD ERABLES Final Result TYRONE * RAD ONC ARIA SESSION SUMMARY (10/16/2024 1:07 PM SKEIN WASHER) Course Name C1_PROSTAT E ARIA Course Plan Date 08/20/2024 12:00 PM ARIA Elapsed Days 41 ARIA Treatment Start Date 09/05/2024 ARIA Treatment Site [id number] ARIA Dose Given To Date (cGy) 6,250 ARIA Session Dosage Given (cGy) 250 ARIA Plan ID PROSTATE_L NS ARIA Fractions Treated 25 ARIA Prescribed Dose Per Fraction (cGy) 250 ARIA Prescribed Total Dose (cGy) 7,000 ARIA 10/16/2024 1:07 PM SKEIN WASHER us Not In File Miscellaneous RADIATION ONCOLOGY ORD ERABLES Final Result Performing Organization Address [facility] Co de Phone Number ARIKay * RAD ONC ARIA SESSION SUMMARY (10/15/2024 1:15 PM SKEIN WASHER) Course Name C1_PROSTAT E ARIA Course Plan Date 08/20/2024 12:00 PM ARIA Elapsed Days 40 ARIA Treatment Start Date 09/05/2024 ARIA Treatment Site [id number] ARIA Dose Given To Date (cGy) 6,000 ARIA Session Dosage Given (cGy) 250 ARIA Plan ID PROSTATE_L NS ARIA Fractions Treated 24 ARIA Prescribed Dose Per Fraction (cGy) 250 ARIA Prescribed Total Dose (cGy) 7,000 ARIA 10/15/2024 1:15 PM SKEIN WASHER us Not In File Miscellaneous RADIATION ONCOLOGY ORD ERABLES Final Result Performing Organization Address City/[facility]/ZIP Co de Phone Number ARIA * RAD ONC ARIA SESSION SUMMARY (10/12/2024 1:12 PM SKEIN WASHER) Course Name C1_PROSTAT E4 ARIA Course Plan Date 08/20/2024 12:00 PM ARIA Elapsed Days 37 ARIA Treatment Start Date 09/05/2024 ARIA Treatment Site [id number] ARIA Dose Given To Date (cGy) 5,750 ARIA Session Dosage Given (cGy) 250 ARIA Plan ID PROSTATE_L NS ARIA Fractions Treated 23 ARIA Prescribed Dose Per Fraction (cGy) 250 ARIA Prescribed Total Dose (cGy) 7,000 ARIA 10/12/2024 1:12 PM SKEIN WASHER us Not In File Miscellaneous RADIATION ONCOLOGY ORD ERABLES Final Result Performing Organization Address City/[facility] Co de Phone Number ARIA * RAD ONC ARIA SESSION SUMMARY (10/11/2024 1:51 PM SKEIN WASHER) Course Name C1_PROSTAT ARIA Course Plan Date 08/20/2024 12:00 PM ARIA Elapsed Days 36 ARIA Treatment Start Date 09/05/2024 ARIA Treatment Site [id number] ARIA Dose Given To Date (cGy) 5,500 ARIA Session Dosage Given (cGy) 250 ARIA Plan ID PROSTATE_L NS ARIA Fractions Treated 22 ARIA Prescribed Dose Per Fraction (cGy) 250 ARIA Prescribed Total Dose (cGy) 7,000 ARIA 10/11/2024 1:51 PM SKEIN WASHER us Not In File Miscellaneous RADIATION ONCOLOGY ORD ERABLES Final Result ARIA * RAD ONC ARIA SESSION SUMMARY (10/10/2024 1:10 PM SKEIN WASHER) Course Name C1_PROSTAT ARIA Course Plan Date 08/20/2024 12:00 PM ARIA Elapsed Days 35 ARIA Treatment Start Date 09/05/2024 ARIA Treatment Site [id number] ARIA Dose Given To Date (cGy) 5,250 ARIA Session Dosage Given (cGy) 250 ARIA Plan ID PROSTATE_L NS ARIA Fractions Treated 21 ARIA Prescribed Dose Per Fraction (cGy) 250 ARIA Prescribed Total Dose (cGy) 7,000 ARIA 10/10/2024 1:10 PM SKEIN WASHER us Not In File Miscellaneous RADIATION ONCOLOGY ORD ERABLES Final Result TYRONE * RAD ONC ARIA SESSION SUMMARY (10/09/2024 1:10 PM SKEIN WASHER) Course Name C1_PROSTAT E_2023 ARIA Course Plan Date 08/20/2024 12:00 PM ARIA Elapsed Days 34 ARIA Treatment Start Date 09/05/2024 ARIA Treatment Site [id number] ARIA Dose Given To Date (cGy) 5,000 ARIA Session Dosage Given (cGy) 250 ARIA Plan ID PROSTATE_L NS ARIA Fractions Treated 20 ARIA Prescribed Dose Per Fraction (cGy) 250 ARIA Prescribed Total Dose (cGy) 7,000 ARIA 10/09/2024 1:10 PM SKEIN WASHER us Not In File Miscellaneous RADIATION ONCOLOGY ORD ERABLES Final Result Performing Organization Address [facility] Co de Phone Number ARIKay * RAD ONC ARIA SESSION SUMMARY (10/08/2024 1:12 PM SKEIN WASHER) Course Name C1_PROSTAT E_2023 ARIA Course Plan Date 08/20/2024 12:00 PM ARIA Elapsed Days 33 ARIA Treatment Start Date 09/05/2024 ARIA Treatment Site [id number] ARIA Dose Given To Date (cGy) 4,750 ARIA Session Dosage Given (cGy) 250 ARIA Plan ID PROSTATE_L NS ARIA Fractions Treated 19 ARIA Prescribed Dose Per Fraction (cGy) 250 ARIA Prescribed Total Dose (cGy) 7,000 ARIA 10/08/2024 1:12 PM SKEIN WASHER us Not In File Miscellaneous RADIATION ONCOLOGY ORD ERABLES Final Result ARIA * RAD ONC ARIA SESSION SUMMARY (10/05/2024 1:12 PM SKEIN WASHER) Course Name [email or web address]_PROSTAT E ARIA Course Plan Date 08/20/2024 12:00 PM ARIA Elapsed Days 30 ARIA Treatment Start Date 09/05/2024 ARIA Treatment Site [id number]_7000 ARIA Dose Given To Date (cGy) 4,500 ARIA Session Dosage Given (cGy) 250 ARIA Plan ID PROSTATE_L NS ARIA Fractions Treated 18 ARIA Prescribed Dose Per Fraction (cGy) 250 ARIA Prescribed Total Dose (cGy) 7,000 ARIA 10/05/2024 1:12 PM SKEIN WASHER us Not In File Miscellaneous RADIATION ONCOLOGY ORD ERABLES Final Result Performing Organization Address [facility] Co de Phone Number ARIA * RAD ONC ARIA SESSION SUMMARY (10/04/2024 1:09 PM SKEIN WASHER) Course Name [email or web address]_PROSTAT ARIA Course Plan Date 08/20/2024 12:00 PM ARIA Elapsed Days 29 ARIA Treatment Start Date 09/05/2024 ARIA Treatment Site [id number]_7000 ARIA Dose Given To Date (cGy) 4,250 ARIA Session Dosage Given (cGy) 250 ARIA Plan ID PROSTATE_L NS ARIA Fractions Treated 17 ARIA Prescribed Dose Per Fraction (cGy) 250 ARIA Prescribed Total Dose (cGy) 7,000 ARIA 10/04/2024 1:09 PM SKEIN WASHER us Not In File Miscellaneous RADIATION ONCOLOGY ORD ERABLES Final Result ARIA * RAD ONC ARIA SESSION SUMMARY (10/03/2024 1:14 PM SKEIN WASHER) Course Name [email or web address]_PROSTAT ARIA Course Plan Date 08/20/2024 12:00 PM ARIA Elapsed Days 28 ARIA Treatment Start Date 09/05/2024 ARIA Treatment Site [id number]_7000 ARIA Dose Given To Date (cGy) 4,000 ARIA Session Dosage Given (cGy) 250 ARIA Plan ID PROSTATE_L NS ARIA Fractions Treated 16 ARIA Prescribed Dose Per Fraction (cGy) 250 ARIA Prescribed Total Dose (cGy) 7,000 ARIA 10/03/2024 1:14 PM SKEIN WASHER us Not In File Miscellaneous RADIATION ONCOLOGY ORD ERABLES Final Result TYRONE * RAD ONC ARIA SESSION SUMMARY (10/02/2024 1:07 PM SKEIN WASHER) Course Name C1_PROSTAT E_2023 ARIA Course Plan Date 08/20/2024 12:00 PM ARIA Elapsed Days 27 ARIA Treatment Start Date 09/05/2024 ARIA Treatment Site [id number]_7000 ARIA Dose Given To Date (cGy) 3,750 ARIA Session Dosage Given (cGy) 250 ARIA Plan ID PROSTATE_L NS ARIA Fractions Treated 15 ARIA Prescribed Dose Per Fraction (cGy) 250 ARIA Prescribed Total Dose (cGy) 7,000 ARIA 10/02/2024 1:07 PM SKEIN WASHER us Not In File Miscellaneous RADIATION ONCOLOGY ORD ERABLES Final Result Performing Organization Address [facility] Co de Phone Number TYRONE VASQUES ONC ARIA SESSION SUMMARY (09/28/2024 1:13 PM SKEIN WASHER) Course Name C1_PROSTAT E_2023 ARIA Course Plan Date 08/20/2024 12:00 PM ARIA Elapsed Days 23 ARIA Treatment Start Date 09/05/2024 ARIA Treatment Site [id number]_7000 ARIA Dose Given To Date (cGy) 3,500 ARIA Session Dosage Given (cGy) 250 ARIA Plan ID PROSTATE_L NS ARIA Fractions Treated 14 ARIA Prescribed Dose Per Fraction (cGy) 250 ARIA Prescribed Total Dose (cGy) 7,000 ARIA 09/28/2024 1:13 PM SKEIN WASHER us Not In File Miscellaneous RADIATION ONCOLOGY ORD ERABLES Final Result TYRONE * RAD ONC ARIA SESSION SUMMARY (09/27/2024 1:07 PM SKEIN WASHER) Course Name C1_PROSTAT E ARIA Course Plan Date 08/20/2024 12:00 PM ARIA Elapsed Days 22 ARIA Treatment Start Date 09/05/2024 ARIA Treatment Site [id number]_7000 ARIA Dose Given To Date (cGy) 3,250 ARIA Session Dosage Given (cGy) 250 ARIA Plan ID PROSTATE_L NS ARIA Fractions Treated 13 ARIA Prescribed Dose Per Fraction (cGy) 250 ARIA Prescribed Total Dose (cGy) 7,000 ARIA 09/27/2024 1:07 PM SKEIN WASHER us Not In File Miscellaneous RADIATION ONCOLOGY ORD ERABLES Final Result Performing Organization Address [facility] Co de Phone Number ARIKay * RAD ONC ARIA SESSION SUMMARY (09/21/2024 1:09 PM SKEIN WASHER) Course Name C1_PROSTAT E ARIA Course Plan Date 08/20/2024 12:00 PM ARIA Elapsed Days 16 ARIA Treatment Start Date 09/05/2024 ARIA Treatment Site [id number]_7000 ARIA Dose Given To Date (cGy) 3,000 ARIA Session Dosage Given (cGy) 250 ARIA Plan ID PROSTATE_L NS ARIA Fractions Treated 12 ARIA Prescribed Dose Per Fraction (cGy) 250 ARIA Prescribed Total Dose (cGy) 7,000 ARIA 09/21/2024 1:09 PM SKEIN WASHER us Not In File Miscellaneous RADIATION ONCOLOGY ORD ERABLES Final Result ARIA * RAD ONC ARIA SESSION SUMMARY (09/20/2024 1:11 PM SKEIN WASHER) Course Name C1_PROSTAT E ARIA Course Plan Date 08/20/2024 12:00 PM ARIA Elapsed Days 15 ARIA Treatment Start Date 09/05/2024 ARIA Treatment Site [id number]_7000 ARIA Dose Given To Date (cGy) 2,750 ARIA Session Dosage Given (cGy) 250 ARIA Plan ID PROSTATE_L NS ARIA Fractions Treated 11 ARIA Prescribed Dose Per Fraction (cGy) 250 ARIA Prescribed Total Dose (cGy) 7,000 ARIA 09/20/2024 1:11 PM SKEIN WASHER us Not In File Miscellaneous RADIATION ONCOLOGY ORD ERABLES Final Result Performing Organization Address [facility] Co de Phone Number ARIA * RAD ONC ARIA SESSION SUMMARY (09/18/2024 1:16 PM SKEIN WASHER) Course Name C1_PROSTAT E ARIA Course Plan Date 08/20/2024 12:00 PM ARIA Elapsed Days 13 ARIA Treatment Start Date 09/05/2024 ARIA Treatment Site [id number]_7000 ARIA Dose Given To Date (cGy) 2,500 ARIA Session Dosage Given (cGy) 250 ARIA Plan ID PROSTATE_L NS ARIA Fractions Treated 10 ARIA Prescribed Dose Per Fraction (cGy) 250 ARIA Prescribed Total Dose (cGy) 7,000 ARIA 09/18/2024 1:16 PM SKEIN WASHER us Not In File Miscellaneous RADIATION ONCOLOGY ORD ERABLES Final Result Performing Organization Address [facility] de Phone Number ARIA * RAD ONC ARIA SESSION SUMMARY (09/17/2024 1:16 PM SKEIN WASHER) Course Name C1_PROSTAT E_2023 ARIA Course Plan Date 08/20/2024 12:00 PM ARIA Elapsed Days 12 ARIA Treatment Start Date 09/05/2024 ARIA Treatment Site [id number]_7000 ARIA Dose Given To Date (cGy) 2,250 ARIA Session Dosage Given (cGy) 250 ARIA Plan ID PROSTATE_L NS ARIA Fractions Treated 9 ARIA Prescribed Dose Per Fraction (cGy) 250 ARIA Prescribed Total Dose (cGy) 7,000 ARIA 09/17/2024 1:16 PM SKEIN WASHER us Not In File Miscellaneous RADIATION ONCOLOGY ORD ERABLES Final Result TYRONE * RAD ONC ARIA SESSION SUMMARY (09/14/2024 1:12 PM SKEIN WASHER) Course Name C1_PROSTAT E ARIA Course Plan Date 08/20/2024 12:00 PM ARIA Elapsed Days 9 ARIA Treatment Start Date 09/05/2024 ARIA Treatment Site [id number]_7000 ARIA Dose Given To Date (cGy) 2,000 ARIA Session Dosage Given (cGy) 250 ARIA Plan ID PROSTATE_L NS ARIA Fractions Treated 8 ARIA Prescribed Dose Per Fraction (cGy) 250 ARIA Prescribed Total Dose (cGy) 7,000 ARIA 09/14/2024 1:12 PM SKEIN WASHER us Not In File Miscellaneous RADIATION ONCOLOGY ORD ERABLES Final Result Performing Organization Address [facility] Co de Phone Number ARIKay * RAD ONC ARIA SESSION SUMMARY (09/13/2024 1:23 PM SKEIN WASHER) Course Name C1_PROSTAT E ARIA Course Plan Date 08/20/2024 12:00 PM ARIA Elapsed Days 8 ARIA Treatment Start Date 09/05/2024 ARIA Treatment Site [id number]_7000 ARIA Dose Given To Date (cGy) 1,750 ARIA Session Dosage Given (cGy) 250 ARIA Plan ID PROSTATE_L NS ARIA Fractions Treated 7 ARIA Prescribed Dose Per Fraction (cGy) 250 ARIA Prescribed Total Dose (cGy) 7,000 ARIA 09/13/2024 1:23 PM SKEIN WASHER us Not In File Miscellaneous RADIATION ONCOLOGY ORD ERABLES Final Result Performing Organization Address [facility] Co de Phone Number TYRONE * RAD ONC ARIA SESSION SUMMARY (09/12/2024 1:16 PM SKEIN WASHER) Course Name C1_PROSTAT ARIA Course Plan Date 08/20/2024 12:00 PM ARIA Elapsed Days 7 ARIA Treatment Start Date 09/05/2024 ARIA Treatment Site [id number]_7000 ARIA Dose Given To Date (cGy) 1,500 ARIA Session Dosage Given (cGy) 250 ARIA Plan ID PROSTATE_L NS ARIA Fractions Treated 6 ARIA Prescribed Dose Per Fraction (cGy) 250 ARIA Prescribed Total Dose (cGy) 7,000 ARIA 09/12/2024 1:16 PM SKEIN WASHER us Not In File Miscellaneous RADIATION ONCOLOGY ORD ERABLES Final Result ARIA * RAD ONC ARIA SESSION SUMMARY (09/11/2024 1:16 PM SKEIN WASHER) Course Name C1_PROSTAT ARIA Course Plan Date 08/20/2024 12:00 PM ARIA Elapsed Days 6 ARIA Treatment Start Date 09/05/2024 ARIA Treatment Site [id number]_7000 ARIA Dose Given To Date (cGy) 1,250 ARIA Session Dosage Given (cGy) 250 ARIA Plan ID PROSTATE_L NS ARIA Fractions Treated 5 ARIA Prescribed Dose Per Fraction (cGy) 250 ARIA Prescribed Total Dose (cGy) 7,000 ARIA 09/11/2024 1:16 PM SKEIN WASHER us Not In File Miscellaneous RADIATION ONCOLOGY ORD ERABLES Final Result ARIA * RAD ONC ARIA SESSION SUMMARY (09/10/2024 1:15 PM SKEIN WASHER) Course Name C1_PROSTAT E ARIA Course Plan Date 08/20/2024 12:00 PM ARIA Elapsed Days 5 ARIA Treatment Start Date 09/05/2024 ARIA Treatment Site [id number]_7000 ARIA Dose Given To Date (cGy) 1,000 ARIA Session Dosage Given (cGy) 250 ARIA Plan ID PROSTATE_L NS ARIA Fractions Treated 4 ARIA Prescribed Dose Per Fraction (cGy) 250 ARIA Prescribed Total Dose (cGy) 7,000 ARIA 09/10/2024 1:15 PM SKEIN WASHER us Not In File Miscellaneous RADIATION ONCOLOGY ORD ERABLES Final Result ARIA * RAD ONC ARIA SESSION SUMMARY (09/07/2024 1:17 PM SKEIN WASHER) Course Name C1_PROSTAT E_2023 ARIA Course Plan Date 08/20/2024 12:00 PM ARIA Elapsed Days 2 ARIA Treatment Start Date 09/05/2024 ARIA Treatment Site [id number]_7000 ARIA Dose Given To Date (cGy) 750 ARIA Session Dosage Given (cGy) 250 ARIA Plan ID PROSTATE_L NS ARIA Fractions Treated 3 ARIA Prescribed Dose Per Fraction (cGy) 250 ARIA Prescribed Total Dose (cGy) 7,000 ARIA 09/07/2024 1:17 PM SKEIN WASHER us Not In File Miscellaneous RADIATION ONCOLOGY ORD ERABLES Final Result ARIA * RAD ONC ARIA SESSION SUMMARY (09/06/2024 1:12 PM SKEIN WASHER) Course Name C1_PROSTAT E_2023 ARIA Course Plan Date 08/20/2024 12:00 PM ARIA Elapsed Days 1 ARIA Treatment Start Date 09/05/2024 ARIA Treatment Site [id number]_7000 ARIA Dose Given To Date (cGy) 500 ARIA Session Dosage Given (cGy) 250 ARIA Plan ID PROSTATE_L NS ARIA Fractions Treated 2 ARIA Prescribed Dose Per Fraction (cGy) 250 ARIA Prescribed Total Dose (cGy) 7,000 ARIA 09/06/2024 1:12 PM SKEIN WASHER us Not In File Miscellaneous RADIATION ONCOLOGY ORD ERABLES Final Result ARIA * RAD ONC ARIA SESSION SUMMARY (09/05/2024 1:23 PM SKEIN WASHER) Course Name C1_PROSTAT E_2023 ARIA Course Plan Date 08/20/2024 12:00 PM ARIA Elapsed Days 0 ARIA Treatment Start Date 09/05/2024 ARIA Treatment Site [id number]_7000 ARIA Dose Given To Date (cGy) 250 ARIA Session Dosage Given (cGy) 250 ARIA Plan ID PROSTATE_L NS ARIA Fractions Treated 1 ARIA Prescribed Dose Per Fraction (cGy) 250 ARIA Prescribed Total Dose (cGy) 7,000 ARIA 09/05/2024 1:23 PM SKEIN WASHER us Not In File Miscellaneous RADIATION ONCOLOGY ORD ERABLES Final Result ARIKay from Last 3 Months Insurance Entitle [employer] MEDICARE PPO MEDICARE FOR LIFE FOR LIFE [employer] MEDICARE PPO Care Teams Farmworker Vegetable Relationship Specialty Start Date End Date Corey Angel MD [address] [facility] [address] [place] [address] PCP - General Internal Medicine 06/18/21 Clem Thomson MD [address] [place] [address] Referring Physician Urology 06/14/24 Harman Morales MD [address] [place] [address] [address] [place] [address] Radiation Oncologist Radiation Oncology 06/22/24 James Robert DO [address] [place] [address] MEDICAL ONCOLOGY, [facility] [address] [place], [place] [id number] Medical Oncologist/Commercial Door Installer Hematology and Oncology 07/12/24
[2024-11-30 11:40] LABS: LDL Cholesterol Direct 42 mg/dL
[2024-11-30 11:44] LABS: Hemoglobin A1C 5.3 % (<5.7)
[2024-11-30 11:46] LABS: Free T4 Free Thyroxine 0.82 ng/dL (0.78-2.19)
[2024-11-30 11:48] LABS: Percent Iron Saturation 21 % (20-50)
== END 2024-11-30 10:40 | disposition home or self-care (01) ==
LOC: ANHLAB 10:40
PROVIDERS: PCP Internal Medicine; Visit Provider Internal Medicine
DX: D64.9 Anemia, unspecified (principal); E78.2 Mixed hyperlipidemia; R73.09 Other abnormal glucose; Z79.899 Other long term (current) drug therapy; Z13.29 Encounter for screening for other suspected endocrine disorder
CPT/HCPCS: 36415; 80053; 80061; 82728; 83036; 83540; 83550; 84439; 84443; 85025

== ENCOUNTER 2025-01-17 18:07 | Emergency (ER) | payer MEDICARE, OTHER, SELFPAY ==
--- NOTE | ~2025-01-17 | XR_ITS ---
HISTORY: fall COMPARISON: None TECHNIQUE: 3 views of the right knee were performed FINDINGS: No acute or subacute fracture, erosion, lytic or sclerotic lesion. Medial tibiofemoral joint space narrowing is identified. No suprapatellar joint effusion is identified. The infrapatellar joint space is clear. IMPRESSION: Degenerative disease without acute fracture. Reviewed, dictated and finalized at location A.
--- NOTE | ~2025-01-17 | XR_ITS ---
HISTORY: fall COMPARISON: None TECHNIQUE: 3 views of the right wrist were performed. FINDINGS: No acute fracture is identified. The carpal arcs are intact. Mild radiocarpal joint space narrowing with sclerosis of the distal radius is present. The remaining visualized joint spaces are otherwise preserved. Trace negative ulnar variance is detected. Bone mineralization is age-appropriate. No significant soft tissue swelling is noted. No radiopaque foreign body is identified. IMPRESSION: Trace degenerative disease, without acute fracture. Reviewed, dictated and finalized at location A.
--- NOTE | ~2025-01-17 | XR_ITS ---
HISTORY: fall COMPARISON: None TECHNIQUE: 2 views of the right forearm were performed FINDINGS: No acute or subacute fracture. Joint spaces are preserved and alignment is maintained. Soft tissues are unremarkable without foreign body or significant calcification. Age-appropriate mineralization. IMPRESSION: No acute fracture or dislocation. Reviewed, dictated and finalized at location A.
--- OUTSIDE RECORDS SUMMARY | 2025-01-17 18:10 | XMS_ITS | Clinical Summary ---
Author Organization [facility] Address [address] [address] Phone Care Team Providers Care Dye Machine Tender Name Role Phone Corey Angel MD Primary Care Provider [phone] Uzair Dye DO Unavailable [phone] Allergies No known active allergies Medications [...] Comments Blood Pressure 120/90 10/12/2016 12:23 PM APPLICATION DEVELOPMENT SPECIALIST Pulse 79 10/12/2016 12:23 PM APPLICATION DEVELOPMENT SPECIALIST Temperature 36.1 C (96.9 F) 10/12/2016 12:23 PM APPLICATION DEVELOPMENT SPECIALIST Respiratory Rate 14 10/12/2016 12:23 PM APPLICATION DEVELOPMENT SPECIALIST Oxygen Saturation 94% 10/12/2016 12:23 PM APPLICATION DEVELOPMENT SPECIALIST Inhaled Oxygen Concentration - - Weight 117.5 kg (259 lb) 10/12/2016 12:23 PM APPLICATION DEVELOPMENT SPECIALIST Height 177.8 cm (5' 10 ) 10/12/2016 12:23 PM APPLICATION DEVELOPMENT SPECIALIST Body Mass Index 37.16 10/12/2016 12:23 PM APPLICATION DEVELOPMENT SPECIALIST Plan of Treatment Health Maintenance Due Date [...] Recently Relevant to Health Maintenance Insurance MEDICARE Electronic [employer] Care Teams Dye Machine Tender Relationship Specialty Start Date End Date Corey Angel MD PCP - General Internal Medicine 03/31/16 Uzair Dye DO Gastroenterology 03/31/16
--- OUTSIDE RECORDS SUMMARY | 2025-01-17 18:10 | XMS_ITS | Encounter Summary ---
Author Organization [facility] Address [facility]ly [facility] [place] [address] Care Team Providers Care Plywood Patcher Name Role Phone Corey Angel MD Primary Care Provider [phone] Encounter Details Date Type Department Care Team (Late st Contact Info) Description 12/14/2022 [employer] Message [facility] [facility] [address] [address] Mychart, [facility] Provider Stress test Social History Tobacco [...] on filedocumented in this encounter Care Teams Plywood Patcher Relationship Specialty Start Date End Date Corey Angel MD [address] [place] [id number] PCP - General INTERNAL MEDICINE 02/25/21 documented as of this encounter
--- OUTSIDE RECORDS SUMMARY | 2025-01-17 18:10 | XMS_ITS | Encounter Summary ---
Author Organization [facility] Address [facility] [place] [address] Care Team Providers Care Warehouse Production Worker Name Role Phone Corey Angel MD Primary Care Provider [phone] Encounter Details Date Type Department Care Team (Latest Contact Info) Description 01/18/2024 [employer] Message [facility]-[address] [phone] Diego Muse MD [address] [place] [address] [place] [address] [place] [phone] Heart Monitor Status Social History Tobacco Use [...] on filedocumented in this encounter Care Teams Warehouse Production Worker Relationship Specialty Start Date End Date Corey Angel MD [address] [place] [id number] PCP - General INTERNAL MEDICINE 02/25/21 documented as of this encounter
--- OUTSIDE RECORDS SUMMARY | 2025-01-17 18:10 | XMS_ITS | Clinical Summary ---
Author Organization [facility] Address [address] [place] [address] Care Team Providers [employer] Name Role Phone Corey Angel MD Primary Care Provider [phone] Nallely Thomson MD Unavailable Harman Morales MD Unavailable [phone] James Robert DO Unavailable [phone] Allergies No known active allergies Medications esomeprazole DR (NexIUM) 20 mg capsuleIndicatio ns:Treatment of Non-Bleeding Gastric Disorder,gerd Take 1 capsule (20 mg total) by mouth daily before breakfast Active rosuvastatin (CRESTOR) 20 mg tabletIndication s:hyperlipidemia Take 1 tablet (20 mg total) by mouth nightly 04/21/20 21 Active icosapent ethyL (VASCEPA) 1 gram capsuleIndicatio ns:hypertriglyce ridemia Take 2 capsules (2 g total) by mouth 2 (two) times a day 05/23/20 21 Active cholecalciferol 400 unit capsuleIndicatio ns:supplement Take 600 Units by mouth every morning Active metoprolol XL (TOPROL-XL) 25 mg extended release tabletIndication s:hypertension,A AA Take 1 tablet (25 mg total) by mouth every morning Active nitroglycerin (NITROSTAT) 0.4 mg SL tabletIndication s:aneursysm Place 1 tablet (0.4 mg total) under the tongue every 5 (five) minutes as needed for chest pain 04/29/20 Active LORazepam (ATIVAN) 0.5 mg tablet Take 1 tablet (0.5 mg total) by mouth every 6 (six) hours as needed for anxiety (prior to MRI) 1 tablet 06/29/20 Active Additional Information Patient not taking.Reported on 12/06/2024 ascorbic acid (vitamin C) 1,000 mg tablet 08/07/20 Active tamsulosin (FLOMAX) 0.4 mg extended release capsuleIndicatio ns:Prostate cancer (HCC) Take 1 capsule (0.4 mg total) by mouth 2 (two) times a day 180 capsule 10/05/19 Active Additional Information Patient taking differently:0.4 mg oralDaily, Reported on 01/08/2025 Eliquis 5 mg tablet 10/08/19 Active semaglutide (WEGOVY) 0.25 mg/0.5 mL auto-injectorInd ications:Coronar y artery disease involving naknek heart without angina pectoris, unspecified vessel or lesion type,Body mass index (BMI) of 39.0 to 39.9 in adult,High risk medication use Inject 0.25 mg under the skin every 7 days Plan to increase dose after 1-2 months 2 mL 1 01/09/20 25 Active telmisartan (MICARDIS) 20 mg tabletIndication s:Essential hypertension Take 1 tablet (20 mg total) by mouth daily 90 tablet 3 01/09/20 25 026 Active traZODone (DESYREL) 50 mg tablet Take 1 tablet (50 mg total) by mouth as needed 06/18/20 24 025 Discontin ued(Other ) zolpidem (AMBIEN) 10 mg tablet 12/29/19 25 025 Discontin ued(Other ) Active Problems Problem Noted Date Diagnosed Date Personal history of radiation therapy 11/15/2024 Prostate cancer 05/02/2024 Cancer Staging:Clinical stage from 06/28/2024:Stage IIIB(cT3b, cN0, cM0, PSA: 9.1, Grade Group: 2) - Signed by Harman Morales MD on 06/28/2024 Elevated PSA 12/19/2023 Ascending aortic aneurysm 06/19/2021 Squamous cell carcinoma of skin of left jehovah's witness - Left 05/30/2018 Knee pain 04/22/2016 Encounters Date Type Department Care Team Description 01/09/2025 Telephone [facility] Cardiology [facility] 8th [place] [address] [place] [address] Albino Yanez MD 01/08/2025 11:00 AM CDT Office Visit [facility] Cardiology [facility] Floor 1, [address] [place] [phone] Albino Yanez MD 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, unspecified vessel or lesion type (Primary Dx); Body mass index (BMI) of 39.0 to 39.9 in adult; High risk medication use; Essential hypertension 01/08/2025 Telephone [facility] Cardiology [address] [place] [address] 8th [place] [address] [place] [id number] Kim Sewell 01/08/2025 Documentation [facility] Cardiology [facility] Floor 1, [address] [place] [id number] Sara Hendrix RN 01/07/2025 12:44 PM CDT - 01/07/2025 11:59 PM CDT Hospital Encounter [facility] [address] [place] [address] Pain in right foot; Swelling of right foot Discharge Disposition: Discharge to home or self care 01/01/2025 Telephone [facility] Building 2 Radiation Oncology [facility] [place] [address] Lucila Rodriguez 12/31/2024 Orders Only [facility] 2 Radiation Oncology [facility] [place] [address] Simon Garcia, PA Pain in right foot (Primary Dx); Swelling of right foot 12/20/2024 10:30 AM CDT Ancillary Procedure [facility] Cardiology [address] [place] [address] Palpitations 12/06/2024 1:15 PM CDT Office Visit [facility] Physicians [facility] [address] [facility] [address] [place] [phone] James Robert DO Prostate cancer (HCC) (Primary Dx) 11/27/2024 1:30 PM GRADES 6 THROUGH 8 TEACHER Office Visit [facility] 2 Radiation Oncology [address] [place] [address] Simon Garcia PA Prostate cancer (HCC) (Primary Dx); Personal history of radiation therapy 11/22/2024 3:10 PM GRADES 6 THROUGH 8 TEACHER - 11/22/2024 11:59 PM GRADES 6 THROUGH 8 TEACHER Hospital Encounter [address] [address] Prostate cancer (HCC) Discharge Disposition: Discharge to home or self care 11/22/2024 3:00 PM GRADES 6 THROUGH 8 TEACHER Lab [facility] Outpatient Lab at [address] [address] Prostate cancer (HCC) (Primary Dx) 11/19/2024 Telephone [facility] Cardiology [address] [place] [address] 8th [place] [address] [place] [address] Dana López 11/16/2024 Telephone [facility] [address] [place] [address] [address] [place] [phone] Sherin Armenta, BESS 11/06/2024 Telephone [facility] [address] [place] [address] Referral, Self Appointment Request 10/29/2024 Orders Only [facility] 2 Radiation Oncology [address] [place] [address] Taya Cartagena, MICAH Prostate cancer (HCC) (Primary Dx) 10/22/2024 2:00 PM GRADES 6 THROUGH 8 TEACHER Lab [facility] Outpatient Lab at [address] [address] Prostate cancer (HCC) (Primary Dx) 10/22/2024 1:51 PM GRADES 6 THROUGH 8 TEACHER - 10/22/2024 11:59 PM GRADES 6 THROUGH 8 TEACHER Hospital Encounter [address] [address] Prostate cancer (HCC) Discharge Disposition: Discharge to home or self care 10/19/2024 1:00 PM GRADES 6 THROUGH 8 TEACHER Treatment [facility] 2 Radiation Oncology [address] [place] [address] Harman Morales MD 10/19/2024 Completion of Therapy [facility] Office Building 2 Radiation Oncology [address] [place] [address] Harman Morales MD 10/19/2024 OTV [facility] 2 Radiation Oncology [address] [place] [address] Ariela Boyle MD Prostate cancer (HCC) (Primary Dx) 10/19/2024 Orders Only RAD ONC TREATMENTS Miscellaneous, Not In File from Last 3 Months Immunizations Immunization Administration [...] Comments Heart disease Father No Known Problems Maternal Grandfather No Known Problems Maternal Grandmother No Known Problems Mother No Known Problems Paternal Grandmother Lung cancer Sister Anesthesia problems Neg Hx Relation Name Status Comments Father Maternal Grandfather Maternal Grandmother Mother Paternal Grandfather Paternal Grandmother Sister Alive Social History Tobacco Use Types Packs/Day Years Used Date Smoking Tobacco: Never Smokeless Tobacco: Never Alcohol Use Standard Drinks/Week Comments No 0 (1 standard drink = 0.6 oz pur e alcohol) AUDIT-C Answer Date Recorded Q1: How often do you have a drink containing alcohol? Never 12/06/2024 Q2: How many drinks containi ng alcohol do you have on a typical day when you are drinking? Patient does not drink Q3: How often do you have si x or more drinks on one occasion? Never 12/06/2024 Personal Safety Answer Date Recorded Have you ever been in or are you currently in a harmful physical or emotional relationship or is someone making you feel afraid or unsafe? 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 on file Not o n file Obstetrics History Last Filed Vital Signs Vital Sign Reading Time Taken Comments Blood Pressure 138/90 01/08/2025 10:58 AM CDT Pulse 95 01/08/2025 10:58 AM CDT Temperature 36.3 C (97.3 F) 01/08/2025 10:58 AM CDT Respiratory Rate 17 01/08/2025 10:58 AM CDT Oxygen Saturation 95% 01/08/2025 10:58 AM CDT Inhaled Oxygen Concentration - - Weight 126.6 kg (279 lb) 01/08/2025 10:58 AM CDT Height 179.1 cm (5' 10.5 ) 01/08/2025 10:58 AM C DT Body Mass Index 39.47 01/08/2025 10:58 AM CDT Plan of Treatment Health Maintenance Due Date Last Done Comments Colon Cancer Screening-Colonoscopy 1950 Depression Screening 1950 Hepatitis C Screening 1950 DTaP/Tdap/Td Vaccine (1 - Tdap) 1962 Hepatitis B Screening 1969 Well Visit 65+ 2016 Covid-19 Vaccine (4 - 2023-2 5 season) 2024 08/12/2021, 12/13/2020, 11/20/2020 Fall Risk Assessment 06/28/2025 06/28/2024, 04/30/20 24 Pneumococcal vaccine 65+ Completed 08/13/2022 Zoster Vaccine Completed 04/12/2023, 11/24, 06/13/2016 Influenza Vaccine Completed 06/14/2024, , 07/08/2022, Additional history exists Prostate Cancer Screening-PSA Discontinued 11/22/2024, 06/15/2024 Procedures Procedure Name Priority Date/Time Associated Diagnosis Comments US VEIN DUPLEX LOWER EXTREMITY RIGHT LIMITED Schedule Routine, Read Routine (OP Routine) 01/07/2025 1:27 PM CDT Pain in right foot Swelling of right foot HOLTER MONITOR 48 HR Routine 12/20/2024 10:23 AM CDT Palpitations TOTAL TESTOSTERONE Routine 11/22/2024 3: 10 PM GRADES 6 THROUGH 8 TEACHER Prostate cancer (HCC) PSA DIAGNOSTIC Routine 11/22/2024 3:10 PM GRADES 6 THROUGH 8 TEACHER Prostate cancer (HCC) EGFR Routine 10/22/2024 1:51 PM GRADES 6 THROUGH 8 TEACHER Prostate cancer (HCC) DIFFERENTIAL AUTO Routine 10/22/2024 1:5 1 PM GRADES 6 THROUGH 8 TEACHER Prostate cancer (HCC) CBC WITH AUTO DIFFERENTIAL Routine 10/22/2024 1:51 PM GRADES 6 THROUGH 8 TEACHER Prostate cancer (HCC) COMPREHENSIVE METABOLIC PANEL Routine 10/22/2024 1:51 PM GRADES 6 THROUGH 8 TEACHER Prostate cancer (HCC) RAD ONC ARIA SESSION SUMMARY 10/19/2024 1:14 PM GRADES 6 THROUGH 8 TEACHER from Last 3 Months Results * US Vein Duplex Lower Extremity Right Limited, Unilateral (01/07/2025 1:27 PM CDT) Anatomical Region Laterality Modality Vascular Right Ultrasound 01/07/2025 1:07 PM CDT Narrative 01/08/2025 12:01 PM CDT Lower Extremity Venous Report Patient Name: NALLELY MEJIA S : 1950 (74y 1m) Gender: M Study Date: 01/07/2025 01:07:40 PM Public Weigher: Tracy Guzman RDMS,RVT Order Provider: SIMON GARCIA Quality: Adequate Ref Provider: SIMON GARCIA PROCEDURES: Vascular Report: A non-invasive vascular imaging study of the right lower extremity veins was performed using B-mode ultrasound, color flow, and spectral Doppler. INDICATIONS: M79.671 Pain in right foot and M79.89 Other specified soft tissue disorders. HISTORY: Right foot and calf swelling, Prostate cancer, Pulmonary embolism in Aug 2024. COMPARISONS: No prior exams. FINDINGS: Right: Negative for deep and superficial vein thrombosis in the right lower extremity. For comparison purposes, the left common femoral vein was interrogated. The common femoral vein Doppler flow was phasic, spontaneous and responded normally to distal augmentation. CONCLUSIONS: 1. There is no evidence of deep vein thrombosis in the right lower extremity. ATTESTATION: I have reviewed and interpreted the pertinent images and measurements of this study. I attest to the conclusions in the final report that is provided above. Electronically Signed By: Connor Fortune MD 01/08/2025 11:50:35 AM CDT Procedure Note Connor Fortune MD - 01/08/2025 Lower Extremity Venous Report Patient Name: NALLELY MEJIA S : 1950 (74y 1m) Gender: M Study Date: 01/07/2025 01:07:40 PM Public Weigher: Tracy Guzman RDMS,RVT Order Provider: SIMON GARCIA Quality: Adequate Ref Provider: SIMON GARCIA PROCEDURES: Vascular Report: A non-invasive vascular imaging study of the right lowerextremity veins was performed using B-mode ultrasound, color flow, and spectral Doppler. INDICATIONS: M79.671 Pain in right foot and M79.89 Other specified soft tissuedisorders. HISTORY: Right foot and calf swelling, Prostate cancer, Pulmonary embolism in . COMPARISONS: No prior exams. FINDINGS: Right: Negative for deep and superficial vein thrombosis in the rightlower extremity. For comparison purposes, the left common femoral vein was interrogated.The common femoral vein Doppler flow was phasic, spontaneous and responded normallyto distal augmentation. CONCLUSIONS: 1. There is no evidence of deep vein thrombosis in the right lowerextremity. ATTESTATION: I have reviewed and interpreted the pertinent images and measurements ofthis study. I attest to the conclusions in the final report that is provided above. Electronically Signed By: Connor Fortune MD 01/08/2025 11:50:35 AM CDT us Simon TAN G US PROCEDURES Final Res ult * 48 HR Holter Monitor (12/20/2024 10:23 AM CDT) Anatomical Region Laterality Modality Electrocardiogra phy Narrative 12/26/2024 5:05 PM CDT AMBULATORY PEDIATRIC DERMATOLOGIST REPORT Patient Name: Nallely Mejia Date of : 1950 Requesting Physician: Date of interpretation: 12/26/24 Type of monitor : 48 hour Holter monitor Date of the study/Enrollment period: 12/20/2024 through 12/22/2024 Indication: Palpitations Quality of the study: Good Interpretation: Total of 1 day 23 hours and 53 minutes recorded and analyzed Underlying sinus rhythm with heart rate variability between 52 and 132 beats per minute with an average heart rate of 83 beats per minute. Low frequency ventricular ectopy totaling 101 beats. This is less than 1% ectopic burden. This is a consisted of 1 ventricular couplet 99 isolated PVCs. No sustained or nonsustained runs of ventricular arrhythmia. 7 seconds of ventricular bigeminy was seen Frequent supraventricular ectopy totaling 7082 beats which is 3% ectopic burden. There were 9 occurrences of supraventricular tachycardia. Longest of which was for 6 beats and the fastest for 4 beats at a rate of 132 beats per minute. There were 155 atrial couplets and 6740 isolated premature atrial contractions. Two patient triggered events. First event of chest pain and pressure correlated to sinus tachycardia with a heart rate of 105 beats per minute. There was also atrial premature contractions some of which were in a pattern of atrial trigeminy No heart block, pauses or ventricular tachycardia Second patient triggered event of chest pain, pressure, tiredness and fatigue correlated sinus rhythm with PACs Conclusions: Underlying sinus rhythm with average heart rate of 83 beats per minute Frequent supraventricular ectopy including premature atrial contractions, occasional atrial couplets and 9 short runs of PSVT. Longest run being only for 6 beats. Fastest run at a rate of 132 beats per minute. Low frequency ventricular ectopy without sustained or nonsustained runs of ventricular tachycardia Patient triggered events correlated sinus rhythm or sinus tachycardia and supraventricular ectopy which may be coincidental given the amount of supraventricular ectopy seen Voice recognition software was used to complete this document, therefore, meter/relay technician variances may occur. Sushant Madison MD, [facility] 12/26/24 Procedure Note Sushant Madison MD - 12/26/2024 AMBULATORY PEDIATRIC DERMATOLOGIST REPORT Patient Name: Nallely Mejia Date of : 1950 Requesting Physician: Date of interpretation: 12/26/24 Type of monitor : 48 hour Holter monitor Date of the study/Enrollment period: 12/20/2024 through 12/22/2024 Indication: Palpitations Quality of the study: Good Interpretation: Total of 1 day 23 hours and 53 minutes recorded andanalyzed Underlying sinus rhythm with heart rate variability between 52 and 132beats per minute with an average heart rate of 83 beats per minute. Low frequency ventricular ectopy totaling 101 beats. This is less than 1%ectopic burden. This is a consisted of 1 ventricular couplet 99 isolatedPVCs. No sustained or nonsustained runs of ventricular arrhythmia. 7seconds of ventricular bigeminy was seen Frequent supraventricular ectopy totaling 7082 beats which is 3% ectopicburden. There were 9 occurrences of supraventricular tachycardia.Longest of which was for 6 beats and the fastest for 4 beats at a rate of132 beats per minute. There were 155 atrial couplets and 6740 isolatedpremature atrial contractions. Two patient triggered events. First event of chest pain and pressurecorrelated to sinus tachycardia with a heart rate of 105 beats per minute.There was also atrial premature contractions some of which were in apattern of atrial trigeminy No heart block, pauses or ventricular tachycardia Second patient triggered event of chest pain, pressure, tiredness andfatigue correlated sinus rhythm with PACs Conclusions: Underlying sinus rhythm with average heart rate of 83 beats per minute Frequent supraventricular ectopy including premature atrial contractions,occasional atrial couplets and 9 short runs of PSVT. Longest run beingonly for 6 beats. Fastest run at a rate of 132 beats per minute. Low frequency ventricular ectopy without sustained or nonsustained runs ofventricular tachycardia Patient triggered events correlated sinus rhythm or sinus tachycardia andsupraventricular ectopy which may be coincidental given the amount ofsupraventricular ectopy seen Voice recognition software was used to complete this document, therefore,meter/relay technician variances may occur. Sushant Madison MD, [facility] 12/26/24 us Corey Angel MD [facility] PROCEDURE S Final Result * (ABNORMAL) Total testosterone (11/22/2024 3:10 PM GRADES 6 THROUGH 8 TEACHER) Testosterone <3(L) 193 - 740 ng/dL Blood 11/22/2024 3:10 PM GRADES 6 THROUGH 8 TEACHER 11/22/2024 9:25 PM GRADES 6 THROUGH 8 TEACHER us Simon TAN LAB BLOOD ORDERABLES Final Result Performing Organization Address [facility] Co de Phone Number SHILPA BRITTON [address] [address] Department [place] [address] * PSA diagnostic (11/22/2024 3:10 PM GRADES 6 THROUGH 8 TEACHER) PSA-Total <0.01 <=6.20 ng/mL Comment: Interpretive Data [...] last revised 22. Blood 11/22/2024 3:10 PM GRADES 6 THROUGH 8 TEACHER 11/22/2024 9:25 PM GRADES 6 THROUGH 8 TEACHER Simon TAN LAB BLOOD ORDERABLES Final Result Performing Organization Address [facility] Co de Phone Number SHIL[facility] [place]TON [address] [address] Department [place] [address] * eGFR (10/22/2024 1:51 PM GRADES 6 THROUGH 8 TEACHER) eGFR >90 >=60 mL/min/1. 73 m2 Comment: [...] last reviewed 2021. Blood 10/22/2024 1:51 PM GRADES 6 THROUGH 8 TEACHER 10/22/2024 7:49 PM GRADES 6 THROUGH 8 TEACHER us Jmaes Robert DO LAB BLOOD ORDERABLES Final R esult [facility] [address] [address] Department [place] [address] * (ABNORMAL) Differential, auto (10/22/2024 1:51 PM GRADES 6 THROUGH 8 TEACHER) Neutrophil abs 3.5 1.5 - 6.5 K/cumm Imm gran abs 0.0 0.0 - 0.1 K/cumm [facility] Lymphocyte abs 0.3(L) 0.8 - 3.3 K/cumm [facility] Monocyte abs 1.1(H) 0.2 - 0.8 K/cumm [facility] Eosinophil abs 0.4 0.0 - 0.5 K/cumm [facility] Basophil abs 0.0 0.0 - 0.1 K/cumm [facility] Neutrophil pct 65.4 % [facility] Comment: Consistent with previous result Interpretive Data Percent cell count reference ranges are not reported, since discordance with absolute values may lead to misinterpretation of CBC data. Current Interpretive Data was last revised on 2018. Imm gran pct 0.4 % [facility] Comment: Interpretive Data Percent cell count reference ranges are not reported, since discordance with absolute values may lead to misinterpretation of CBC data. Current Interpretive Data was last revised on 2018. Lymphocyte pct 6.1 % [facility] Comment: Interpretive Data Percent cell count reference ranges are not reported, since discordance with absolute values may lead to misinterpretation of CBC data. Current Interpretive Data was last revised on 2018. Monocyte pct 20.3 % [facility] Comment: Interpretive Data Percent cell count reference ranges are not reported, since discordance with absolute values may lead to misinterpretation of CBC data. Current Interpretive Data was last revised on 2018. Eosinophil pct 7.0 % [facility] Comment: Interpretive Data Percent cell count reference ranges are not reported, since discordance with absolute values may lead to misinterpretation of CBC data. Current Interpretive Data was last revised on 2018. Basophil pct 0.8 % [facility] Comment: Interpretive Data Percent cell count reference ranges are not reported, since discordance with absolute values may lead to misinterpretation of CBC data. Current Interpretive Data was last revised on 2018. Blood 10/22/2024 1:51 PM GRADES 6 THROUGH 8 TEACHER 10/22/2024 7:31 PM GRADES 6 THROUGH 8 TEACHER James Robert DO LAB BLOOD ORDERABLES [facility] [address] [address] Department [place] [address] * (ABNORMAL) CBC with auto differential (10/22/2024 1:51 PM GRADES 6 THROUGH 8 TEACHER) WBC 5.3 3.8 - 9.9 K/cumm Hgb 11.0(L) 13.0 - 17.5 g/dL [facility] Hct 35.2(L) 38.9 - 50.3 % [facility] Plt 191 150 - 400 K/cumm [facility] MPV 10.9 9.1 - 12.3 fL [facility] RBC 3.71(L) 4.30 - 5.80 M/cumm [facility] MCV 94.9 81.3 - 96.4 fL [facility] MCH 29.6 27.1 - 33.3 pg [facility] MCHC 31.3(L) 32.3 - 35.7 g/dL [facility] RDW CV 15.0(H) 11.1 - 14.9 % [facility] RDW SD 51.5(H) 35.7 - 48.1 fL [facility] NRBC abs 0.00 0.00 - 0.01 K/cumm [facility] Blood 10/22/2024 1:51 PM GRADES 6 THROUGH 8 TEACHER 10/22/2024 7:31 PM GRADES 6 THROUGH 8 TEACHER James Robert DO LAB BLOOD ORDERABLES Final R esult [facility] [address] [address] Department [employer] [address] * (ABNORMAL) Comprehensive metabolic panel (10/22/2024 1:51 PM GRADES 6 THROUGH 8 TEACHER) Sodium 142 135 - 145 mmol/L Potassium, [...] Units/L CERNER CH Blood 10/22/2024 1:51 PM GRADES 6 THROUGH 8 TEACHER 10/22/2024 7:31 PM GRADES 6 THROUGH 8 TEACHER James Robert DO LAB BLOOD ORDERABLES Final R esult Performing Organization Address City/[facility]/ZIP Co de Phone Number SHILPA BRITTON [address] [address] Department of [employer] [place] [address] * RAD ONC ARIA SESSION SUMMARY (10/19/2024 1:14 PM GRADES 6 THROUGH 8 TEACHER) Course Name [id number] ARIA Course Plan Date 08/20/2024 12:00 PM ARIA Elapsed Days 44 ARIA Treatment Start Date 09/05/2024 ARIA Treatment Site [id number] ARIA Dose Given To Date (cGy) 7,000 ARIA Session Dosage Given (cGy) 250 ARIA Plan ID PROSTATE_L NS ARIA Fractions Treated 28 ARIA Prescribed Dose Per Fraction (cGy) 250 ARIA Prescribed Total Dose (cGy) 7,000 ARIA 10/19/2024 1:14 PM GRADES 6 THROUGH 8 TEACHER us Not In File Miscellaneous RADIATION ONCOLOGY ORD ERABLES Final Result ARIA from Last 3 Months Insurance [employer] HUMANA CHOICE MEDICARE PPO MEDICARE FOR LIFE [facility] HUMANA CHOICE MEDICARE PPO [place] [id number] Care Teams [employer] Relationship Specialty Start Date End Date Corey Angel MD [address] [facility] [address] INTERNAL MEDICINE [place], [place] [id number] PCP - General Internal Medicine 06/18/21 Nallely Thomson MD [address] [facility] [address] [place] [address] Referring Physician Urology 06/14/24 Harman Morales MD [address] [place] [address] [address] [place] [address] Radiation Oncologist Radiation Oncology 06/22/24 James Robert DO [address] [place] [address] MEDICAL ONCOLOGY, [facility] [address] [place] [address] Medical Oncologist/Supervisor Drawing Hematology and Oncology 07/12/24
[2025-01-17 18:11] VITALS: BP 157/112; PULSE 115; RESP 20; TEMP 36.4; O2SAT 97
--- OUTSIDE RECORDS SUMMARY | 2025-01-17 18:11 | XMS_ITS | Continuity of Care Document ---
Author Name [facility] Organization [facility] Care Team Providers Care Machine Attendant Name Role Phone [facility] Unavailable Unavailable Medications Combined list of outpatient [...] 'S LAB, 120 ea. BOTTLE Cancele d [id number] : 2023 0 Pharmac y Data Transac tion Service Facilit y ICOSAPENT ETHYL (icosapent ethyl), 1 G, CAPSULE, ORAL, 'S LAB, 120 ea. BOTTLE Cancele d [id number] : 2023 0 Pharmac y Data Transac tion Service Facilit y LORAZEPAM (lorazepam) , 0.5 MG, TABLET, ORAL, AUROBINDO PHARM, 500 ea. BOTTLE Active [id number] 4 2023 45 Pharmac y Data Transac tion Service Facilit y LORAZEPAM (lorazepam) , 0.5 MG, TABLET, ORAL, AUROBINDO PHARM, 500 ea. BOTTLE Active [id number] 2023 45 Pharmac y Data Transac tion Service Facilit y METOPROLOL SUCCINATE (metoprolol succinate), 25 MG, TAB ER 24H, ORAL, ACTAVIS/TEV A, 100 ea. BOTTLE Active [id number] 2023 45 Pharmac y Data Transac tion Service Facilit y ROSUVASTATI N CALCIUM (rosuvastat in calcium), 40 MG, TABLET, ORAL, CAMBER PHARMACE, 30 ea. BOTTLE Active [id number] 2023 90 Pharmac y Data Transac tion Service Facilit y Immunizations Combined list of available immunizations from the Department of Defense and Veterans Affairs facilities. Immunization Series Date Given Administered By Site Reaction Lot Number CVX Code Drug Work Manager Status Comments Source COVID-19, mRNA, LNP-S, PF, 30 mcg/0.3 mL dose 2020 VINNIETV [place] (PFR) Not Given COVID-19, mRNA, LNP-S, [...] 1 2005 Unknown, Provider [id number] 15 [facility] ([facility]) complet ed influenza virus vaccine, split virus (incl. purified surface antigen)- retired CODE DoD influenza virus vaccine, split virus (incl. purified surface antigen)-reti red CODE 1 2004 Unknown, Provider [id number] 15 Sanofi Pasteur ([facility]) complet ed influenza virus vaccine, split virus (incl. purified surface antigen)- retired CODE DoD typhoid vaccine, parenteral, other than acetone-kille d, dried 1 2004 Unknown, Provider [id number] Sanofi Pasteur ([facility]) complet ed typhoid vaccine, parentera l, other than acetone-k illed, dried DoD hepatitis A vaccine, adult dosage 1 2004 Unknown, Provider [id number] 52 [facility] ([facility]) complet ed hepatitis A vaccine, adult dosage DoD influenza virus vaccine, whole virus 1 1998 Unknown, Provider [id number] 16 [facility] ([facility] complet ed influenza virus vaccine, whole virus [facility] tuberculin skin test; purified protein derivative solution, intradermal 1 1997 Unknown, Provider 96 Transcribed (TRS) complet ed tuberculi n skin test; purified protein derivativ e solution, intraderm al DoD Procedures Combined list of: 1) Procedures from Department of Veterans Affairs facilities going back up to thelast 18 months, not all [place] non-surgical procedures are included; 2) All procedures from the Department of Defense facilities. Procedure Procedure Type Code Date Perfomer Comments Brianna nery EXCISION OF HEMORRHOIDS 09/13/1993 [facility] Social History Combined list of available smoking, tobacco, and other social history from Department of Defense and Veterans Affairs facilities. Social History Type Response Date Comment Karen gabriel This section is an empty social history section. DoD
--- OUTSIDE RECORDS SUMMARY | 2025-01-17 18:11 | XMS_ITS ---
Author Organization [facility] Address [address] [place] [address] Care Team Providers Care Graining Operator Name Role Phone Corey Angel MD Primary Care Provider [phone] Clem Thomson MD Unavailable Harman Morales MD Unavailable [phone] James Robert DO Unavailable [phone] Active Problems Problem Noted Date Diagnosed Date Personal history of radiation therapy 11/15/2024 Prostate cancer 05/02/2024 Cancer Staging:Clinical stage from 06/28/2024:Stage IIIB(cT3b, cN0, cM0, PSA: 9.1, Grade Group: 2) - Signed by Harman Morales MD on 06/28/2024 Elevated PSA 12/19/2023 Ascending aortic aneurysm 06/19/2021 Squamous cell carcinoma of skin of left congregational - Left 05/30/2018 Knee pain 04/22/2016 Current Treatment and Therapy Plans Eligard Injection - 45 mg every 24 weeks* Plan Start Date:07/11/2024 Plan Provider:Harman Morales MD Linked Problems Prostate cancer (HCC) Treatment Medications leuprolide acetate (6 month) (ELIGARD) Past Treatment and Therapy Plans Oncology Chemotherapy Treatment Plan Name Start Date Discontinue Date Treatment Medications Discontinue Reason Plan Provider Cycles Abiraterone / PredniSONE 28 Day Cycles 08/10/2012/06/2024 abiraterone (ZYTIGA) Toxicity/Compl ication Yesica, James L., DO Treatment not started Radiation Treatments (No Episode) * Course C1_PROSTATE_202309/05/2024 - 10/19/2024 Treatment Period Energy Fraction Dose Fractions Total Dose Plans Planned PROSTATE_LNS 09/05/2024 - 10/19/2024 250 28 / 7,000 Reference Points Delivered [id number]_7000 09/05/2024 - 10/19/2024 7,000 Lifetime Dose Tracking * Chemical Lifetime Dose Automatic Entry Manual Entr y DLP 1,220 mGycm 1,220 mGycm 0 mGycm
--- OUTSIDE RECORDS SUMMARY | 2025-01-17 18:11 | XMS_ITS | Clinical Summary ---
Author Organization [facility] Address [address] [place] [address] Care Team Providers Care Shells Inspector Name Role Phone Corey Angel MD Primary Care Provider [phone] Allergies No known active allergies Medications rosuvastatin [...] Squamous cell carcinoma of skin of left scientologist 0 05/30/2018 Knee pain 04/22/2016 Resolved Problems [...] C 1969 DTaP, Tdap and Td Vaccines ( 1 - Tdap) 1970 RSV Immunization or 60+ Years (1 - Risk 60-74 years 1-dose series) 2011 Zoster Vaccines (2 of 3) 08/08/2016 06/13/2016 Annual Medicare Wellness Visit 2016 COVID-19 Vaccine (4 2023-2 5 season) 2024 08/12/2021, 12/13/2020, 11/20/2020 Pneumococcal Vaccine: 50+ Years Completed 08/13/2022 Meningococcal B Vaccine Aged Out No l onger eligible based on patient's age to complete this topic Meningococcal Vaccine Aged Out No elsa barrett eligible based on patient's age to complete this topic RSV Immunizations Under 20 Months Aged Out No longer eligible b ased on patient's age to complete this topic Insurance HUMANA HUMANA Care Teams Shells Inspector Relationship Specialty Start Date End Date Corey Angel MD [address] [place] [phone] PCP - General INTERNAL MEDICINE 02/25/21
--- OUTSIDE RECORDS SUMMARY | 2025-01-17 18:11 | XMS_ITS | Referral Summary ---
Author Organization [facility] Address [address] [place] [address] Care Team Providers Care Conductor Yard Name Role Phone Corey Angel MD Primary Care Provider Nallely Thomson MD Unavailable Harman Morales MD Unavailable [phone] James Robert DO Unavailable [phone] Encounters Date Type Department Care Team Description 01/09/2025 Telephone [facility] Cardiology [facility] 8th [place] [address] [place] [address] Albino Yanez MD 01/08/2025 Telephone [facility] Cardiology [facility] 8th [place] [address] [place] [address] Kim Sewell 01/08/2025 Documentation [facility] Cardiology [facility] Floor 1, [address] [place] [address] Sara Hendrix RN 01/08/2025 11:00 AM CDT Office Visit [facility] Cardiology [facility] Floor 1, [address] [place] [phone] Albino Yanez MD 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, unspecified vessel or lesion type (Primary Dx); Body mass index (BMI) of 39.0 to 39.9 in adult; High risk medication use; Essential hypertension 01/07/2025 12:44 PM CDT - 01/07/2025 11:59 PM CDT Hospital Encounter [facility] Vascular Lab [address] [place] [address] Pain in right foot; Swelling of right foot Discharge Disposition: Discharge to home or self care 01/01/2025 Telephone [facility] Medical Office Building 2 Radiation Oncology [address] [place] [address] ChappellJatin roa 12/31/2024 Orders Only [facility] Medical Office Building 2 Radiation Oncology [address] [place] [address] Simon Garcia PA Pain in right foot (Primary Dx); Swelling of right foot 12/20/2024 10:30 AM CDT Ancillary Procedure [facility] Cardiology [address] [place] [address] Palpitations 12/06/2024 1:15 PM CDT Office Visit [facility] Physicians [facility] Oncology [facility] [address] [place] [address] James Robert DO Prostate cancer (HCC) (Primary Dx) 11/27/2024 1:30 PM SUPERVISOR LAUNDRY Office Visit [facility] Medical Office Building 2 Radiation Oncology [address] [place] [address] Simon Garcia PA Prostate cancer (HCC) (Primary Dx); Personal history of radiation therapy 11/22/2024 3:10 PM SUPERVISOR LAUNDRY - 11/22/2024 11:59 PM SUPERVISOR LAUNDRY Hospital Encounter [address] [address] Prostate cancer (HCC) Discharge Disposition: Discharge to home or self care 11/22/2024 3:00 PM SUPERVISOR LAUNDRY Lab [facility] Outpatient Lab at [address] [address] Prostate cancer (HCC) (Primary Dx) 11/19/2024 Telephone [facility] Cardiology [address] [facility] 8th [place] [address] [place] [phone] Dana López 11/16/[address] [facility] Oncology [address] [place] [address] [address] [place] [address] Sherin Armenta CMA 11/06/2024 Telephone [facility] [address] [place] [address] Referral, Self Appointment Request 10/29/2024 Orders Only [facility] Medical Office Building 2 Radiation Oncology [address] [place] [address] Taya Cartagena, MICAH Prostate cancer (HCC) (Primary Dx) 10/22/2024 1:51 PM SUPERVISOR LAUNDRY - 10/22/2024 11:59 PM SUPERVISOR LAUNDRY [facility] [address] [place] [address] Prostate cancer (HCC) Discharge Disposition: Discharge to home or self care 10/22/2024 2:00 PM SUPERVISOR LAUNDRY Lab [facility] Outpatient Lab at [address] [phone] Prostate cancer (HCC) (Primary Dx) 10/19/2024 Completion of Therapy [facility] Office Building 2 Radiation Oncology [address] [place] [address] Harman Morales MD 10/19/2024 OTV [facility] Office [facility] 2 Radiation Oncology [address] [place] [address] Ariela Boyle MD Prostate cancer (HCC) (Primary Dx) 10/19/2024 Orders Only RAD ONC TREATMENTS Miscellaneous, Not In File 10/19/2024 1:00 PM SUPERVISOR LAUNDRY Treatment [facility] Office Building 2 Radiation Oncology [address] [place] [address] Harman Morales MD from Last 3 Months Allergies No known [...] minutes as needed for chest pain 04/29/20 23 Active LORazepam (ATIVAN) 0.5 mg tablet Take 1 tablet (0.5 mg total) by mouth every 6 (six) hours as needed for anxiety (prior to MRI) 1 tablet 06/29/20 24 Active Additional Information Patient not taking.Reported on 12/06/2024 ascorbic acid (vitamin C) 1,000 mg tablet 08/07/20 24 Active tamsulosin (FLOMAX) 0.4 mg extended release capsuleIndicatio ns:Prostate cancer (HCC) Take 1 capsule (0.4 mg total) by mouth 2 (two) times a day 180 capsule 10/05/19 25 Active Additional Information Patient taking differently:0.4 mg oralDaily, Reported on 01/08/2025 Eliquis 5 mg tablet 10/08/19 25 Active semaglutide (WEGOVY) 0.25 mg/0.5 mL auto-injectorInd ications:Coronar y artery disease involving venetie heart without angina pectoris, unspecified vessel or [...] ) zolpidem (AMBIEN) 10 mg tablet 12/29/19 025 Discontin ued(Other ) Active Problems Problem Noted Date Diagnosed Date Personal history of radiation therapy 11/15/2024 Prostate cancer 05/02/2024 Cancer Staging:Clinical stage from 06/28/2024:Stage IIIB(cT3b, cN0, cM0, PSA: 9.1, Grade Group: 2) - Signed by Harman Morales MD on 06/28/2024 Elevated PSA 12/19/2023 Ascending aortic aneurysm 06/19/2021 Squamous cell carcinoma of skin of left taoist - Left 05/30/2018 Knee pain 04/22/2016 Immunizations [...] file Legal Sex Male 2:49 AM SUPERVISOR LAUNDRY Gender Identity Male 05/22/2018 10:57 AM CDT Sexual Orientation Straight 11/03/2020 7: 01 PM SUPERVISOR LAUNDRY 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 Industry Job Start Date Job End Date working Not on file 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 Not on file Not o n file Last Filed Vital Signs Vital Sign [...] 01/08/2025 10:58 AM CDT Plan of Treatment Not on file Procedures Procedure Name Priority Date/Time Associated Diagnosis Comments US VEIN DUPLEX LOWER EXTREMITY RIGHT LIMITED Schedule Routine, Read Routine (OP Routine) 01/07/2025 1:27 PM CDT Pain in right foot Swelling of right foot HOLTER MONITOR 48 HR Routine 12/20/2024 10:23 AM CDT Palpitations TOTAL TESTOSTERONE Routine 11/22/2024 3: 10 PM SUPERVISOR LAUNDRY Prostate cancer (HCC) PSA DIAGNOSTIC Routine 11/22/2024 3:10 PM SUPERVISOR LAUNDRY Prostate cancer (HCC) EGFR Routine 10/22/2024 1:51 PM SUPERVISOR LAUNDRY Prostate cancer (HCC) DIFFERENTIAL AUTO Routine 10/22/2024 1:5 1 PM SUPERVISOR LAUNDRY Prostate cancer (HCC) CBC WITH AUTO DIFFERENTIAL Routine 10/22/2024 1:51 PM SUPERVISOR LAUNDRY Prostate cancer (HCC) COMPREHENSIVE METABOLIC PANEL Routine 10/22/2024 1:51 PM SUPERVISOR LAUNDRY Prostate cancer (HCC) RAD ONC ARIA SESSION SUMMARY 10/19/2024 1:14 PM SUPERVISOR LAUNDRY from Last 3 Months Results * US Vein Duplex Lower Extremity Right Limited, Unilateral (01/07/2025 1:27 PM CDT) Anatomical Region Laterality Modality Vascular Right Ultrasound 01/07/2025 1:07 PM CDT Narrative 01/08/2025 12:01 PM CDT Lower Extremity Venous Report Patient Name: NALLELY MEJIA S : 1950 (74y 1m) Gender: M Study Date: 01/07/2025 01:07:40 PM [facility] Consultant: Tracy Guzman RDMS,RVT Order Provider: SIMON GARCIA [...] Gender: M Study Date: 01/07/2025 01:07:40 PM [employer]os Consultant: Tracy Guzman RDMS,RVT Order Provider: SIMON GARCIA [...] Connor Fortune MD 01/08/2025 11:50:35 AM CDT Simon TAN IMMelania US PROCEDURES Final Res ult * 48 HR Holter Monitor (12/20/2024 10:23 AM CDT) Anatomical Region Laterality Modality Electrocardiogra phy Narrative 12/26/2024 5:05 PM CDT AMBULATORY SITE DAMAGE PREVENTION TECHNICIAN REPORT Patient Name: Nallely Mejia Date of [...] was used to complete this document, therefore, home health assistant variances may occur. Sushant Madison MD, [facility] 12/26/24 Procedure Note Sushant Madison MD - 12/26/2024 AMBULATORY SITE DAMAGE PREVENTION TECHNICIAN REPORT Patient Name: Nallely Mejia Date of [...] software was used to complete this document, therefore,home health assistant variances may occur. Sushant Madison MD, [facility] 12/26/24 Corey Angel MD CV CARDIAC SERVICES PROCEDURE S Final Result * (ABNORMAL) Total testosterone (11/22/2024 3:10 PM SUPERVISOR LAUNDRY) Testosterone <3(L) 193 - 740 ng/dL Blood 11/22/2024 3:10 PM SUPERVISOR LAUNDRY 11/22/2024 9:25 PM SUPERVISOR LAUNDRY Simon TAN LAB BLOOD ORDERABLES Final Result Performing Organization Address City/[facility]/ZIP Co de Phone Number [place] [address] [place] [address] * PSA diagnostic (11/22/2024 3:10 PM SUPERVISOR LAUNDRY) Pathologist [facility] PSA-Total <0.01 <=6.20 ng/mL Comment: Interpretive Data [...] last revised 22. Blood 11/22/2024 3:10 PM SUPERVISOR LAUNDRY 11/22/2024 9:25 PM SUPERVISOR LAUNDRY Simon TAN LAB [place] [address] [place] [address] * eGFR (10/22/2024 1:51 PM SUPERVISOR LAUNDRY) eGFR >90 >=60 mL/min/1. 73 m2 Comment: [...] last reviewed 2021. Blood 10/22/2024 1:51 PM SUPERVISOR LAUNDRY 10/22/2024 7:49 PM SUPERVISOR LAUNDRY us James Robert DO LAB BLOOD ORDERABLES Final R esult [facility] [address] Department [place] [address] * (ABNORMAL) Differential, auto (10/22/2024 1:51 PM SUPERVISOR LAUNDRY) Neutrophil abs 3.5 1.5 - 6.5 K/cumm Imm gran abs 0.0 0.0 - 0.1 K/cumm [facility] Lymphocyte abs 0.3(L) 0.8 - 3.3 K/cumm [facility] Monocyte abs 1.1(H) 0.2 - 0.8 K/cumm [facility] Eosinophil abs 0.4 0.0 - 0.5 K/cumm [facility] Basophil abs 0.0 0.0 - 0.1 K/cumm [facility] Neutrophil pct 65.4 % [facility] Comment: Consistent with previous result Interpretive Data Percent cell count reference ranges are not reported, since discordance with absolute values may lead to misinterpretation of CBC data. Current Interpretive Data was last revised on 2018. Imm gran pct 0.4 % [facility] Comment: Interpretive Data Percent cell count reference ranges are not reported, since discordance with absolute values may lead to misinterpretation of CBC data. Current Interpretive Data was last revised on 2018. Lymphocyte pct 6.1 % [facility] Comment: Interpretive Data Percent cell count reference ranges are not reported, since discordance with absolute values may lead to misinterpretation of CBC data. Current Interpretive Data was last revised on 2018. Monocyte pct 20.3 % [facility] Comment: Interpretive Data Percent cell count reference ranges are not reported, since discordance with absolute values may lead to misinterpretation of CBC data. Current Interpretive Data was last revised on 2018. Eosinophil pct 7.0 % [facility] Comment: Interpretive Data Percent cell count reference ranges are not reported, since discordance with absolute values may lead to misinterpretation of CBC data. Current Interpretive Data was last revised on 2018. Basophil pct 0.8 % [facility] Comment: Interpretive Data Percent cell count reference ranges are not reported, since discordance with absolute values may lead to misinterpretation of CBC data. Current Interpretive Data was last revised on 2018. Blood 10/22/2024 1:51 PM SUPERVISOR LAUNDRY 10/22/2024 7:31 PM SUPERVISOR LAUNDRY us James Robert DO LAB BLOOD ORDERABLES Final R esult [facility] [address] Department [place] [address] * (ABNORMAL) CBC with auto differential (10/22/2024 1:51 PM SUPERVISOR LAUNDRY) WBC 5.3 3.8 - 9.9 K/cumm Hgb 11.0(L) 13.0 - 17.5 g/dL [facility] Hct 35.2(L) 38.9 - 50.3 % [facility] Plt 191 150 - 400 K/cumm [facility] MPV 10.9 9.1 - 12.3 fL [facility] RBC 3.71(L) 4.30 - 5.80 M/cumm [facility] MCV 94.9 81.3 - 96.4 fL [facility] MCH 29.6 27.1 - 33.3 pg [facility] MCHC 31.3(L) 32.3 - 35.7 g/dL [facility] RDW CV 15.0(H) 11.1 - 14.9 % [facility] RDW SD 51.5(H) 35.7 - 48.1 fL [facility] NRBC abs 0.00 0.00 - 0.01 K/cumm [facility] Blood 10/22/2024 1:51 PM SUPERVISOR LAUNDRY 10/22/2024 7:31 PM SUPERVISOR LAUNDRY James Robert DO LAB [place]LOOD [place] [address] Department [place] [address] * (ABNORMAL) Comprehensive metabolic panel (10/22/2024 1:51 PM SUPERVISOR LAUNDRY) Sodium 142 135 - 145 mmol/L Potassium, [...] Units/L [facility] Blood 10/22/2024 1:51 PM SUPERVISOR LAUNDRY 10/22/2024 7:31 PM SUPERVISOR LAUNDRY us James Robert DO LAB [place]LOOD [place] [address] [address] Department [place] [address] * RAD ONC ARIA SESSION SUMMARY (10/19/2024 1:14 PM SUPERVISOR LAUNDRY) Course Name C1_PROSTAT E_2023 [facility] Course Plan Date 08/20/2024 12:00 PM ARIA Elapsed Days 44 ARIA Treatment Start Date 09/05/2024 ARIA Treatment Site [id number] ARIA Dose Given To Date (cGy) 7,000 ARIA Session Dosage Given (cGy) 250 ARIA Plan ID PROSTATE_L NS [facility]A Fractions Treated 28 ARIA Prescribed Dose Per Fraction (cGy) 250 ARIA Prescribed Total Dose (cGy) 7,000 ARIA 10/19/2024 1:14 PM SUPERVISOR LAUNDRY us Not In File Miscellaneous RADIATION ONCOLOGY ORD ERABLES Final Result ARIA from Last 3 Months Insurance [employer] HUMANA CHOICE MEDICARE PPO MEDICARE FOR LIFE FOR LIFE HUMANA CHOICE MEDICARE PPO Care Teams Conductor Yard Relationship Specialty Start Date End Date Corey Angel MD [address] [facility] [address] [place] [address] PCP - General Internal Medicine 06/18/21 Nallely Thomson MD [address] [place] [address] Referring Physician Urology 06/14/24 Harman Morales MD [address] [place] [address] [address] [place] [address] Radiation Oncologist Radiation Oncology 06/22/24 James Robert DO [address] [place] [address] MEDICAL ONCOLOGY, [facility] [address] [place] [address] Medical Oncologist/Arch Cushion Press Operator Hematology and Oncology 07/12/24
[2025-01-17 18:32] VITALS: BP 129/99; PULSE 107; RESP 18; O2SAT 95
[2025-01-17 19:14] VITALS: BP 135/111; PULSE 100; RESP 18; O2SAT 94
--- OUTSIDE RECORDS SUMMARY | 2025-01-17 19:19 | XMS_ITS | Clinical Summary ---
Author Organization [facility] Address [address] [address] Phone Care Team Providers Care Magazine Grinder Loader Name Role Phone Corey Angel MD Primary Care Provider Uzair Dye DO Unavailable [phone] Allergies No known active allergies Medications [...] Comments Blood Pressure 120/90 10/12/2016 12:23 PM CONSTRUCTION PROJECT ENGINEER Pulse 79 10/12/2016 12:23 PM CONSTRUCTION PROJECT ENGINEER Temperature 36.1 C (96.9 F) 10/12/2016 12:23 PM CONSTRUCTION PROJECT ENGINEER Respiratory Rate 14 10/12/2016 12:23 PM CONSTRUCTION PROJECT ENGINEER Oxygen Saturation 94% 10/12/2016 12:23 PM CONSTRUCTION PROJECT ENGINEER Inhaled Oxygen Concentration - - Weight 117.5 kg (259 lb) 10/12/2016 12:23 PM CONSTRUCTION PROJECT ENGINEER Height 177.8 cm (5' 10 ) 10/12/2016 12:23 PM CONSTRUCTION PROJECT ENGINEER Body Mass Index 37.16 10/12/2016 12:23 PM CONSTRUCTION PROJECT ENGINEER Plan of Treatment Health Maintenance Due Date [...] Recently Relevant to Health Maintenance Insurance MEDICARE [employer] Care Teams Magazine Grinder Loader Relationship Specialty Start Date End Date Corey Angel MD PCP - General Internal Medicine 03/31/16 Uzair Dye DO Gastroenterology 03/31/16
--- OUTSIDE RECORDS SUMMARY | 2025-01-17 19:19 | XMS_ITS | Encounter Summary ---
Author Organization [facility] Address Formerly [facility], [facility] [place] [address] Care Team Providers Care Ironworker Machine Operator Name Role Phone Corey Angel MD Primary Care Provider [phone] Encounter Details Date Type Department Care Team (Late st Contact Info) Description 12/14/2022 Mozaik Media Message Enc [facility] [address] [address] Mychart, [facility] Provider Stress test Social History Tobacco [...] on filedocumented in this encounter Care Teams Ironworker Machine Operator Relationship Specialty Start Date End Date Corey Angel MD [address] [place] [address] PCP - General INTERNAL MEDICINE 02/25/21 documented as of this encounter
--- OUTSIDE RECORDS SUMMARY | 2025-01-17 19:20 | XMS_ITS ---
Author Organization [facility] Address [address] [place] [address] Care Team Providers Care Driller Multiple Spindle Name Role Phone Corey Anegl MD Primary Care Provider [phone] Clem Thomson MD Unavailable [phone] Harman Morales MD Unavailable [phone] James Robert DO Unavailable [phone] Active Problems Problem Noted Date Diagnosed Date Personal history of radiation therapy 11/15/2024 Prostate cancer 05/02/2024 Cancer Staging:Clinical stage from 06/28/2024:Stage IIIB(cT3b, cN0, cM0, PSA: 9.1, Grade Group: 2) - Signed by Harman Morales MD on 06/28/2024 Elevated PSA 12/19/2023 Ascending aortic aneurysm 06/19/2021 Squamous cell carcinoma of skin of left mosque - Left 05/30/2018 Knee pain 04/22/2016 Current [...]
--- OUTSIDE RECORDS SUMMARY | 2025-01-17 19:20 | XMS_ITS | Continuity of Care Document ---
Author Name [facility] Organization [facility] Care Team Providers Care Malted Milk Mixer Name Role Phone [facility] Unavailable Unavailable Medications Combined list of outpatient [...] 'S LAB, 120 ea. BOTTLE Cancele d [id number] : 2023 0 Pharmac y Data Transac tion Service Facilit y ICOSAPENT ETHYL (icosapent ethyl), 1 G, CAPSULE, ORAL, 'S LAB, 120 ea. BOTTLE Cancele d [id number] : 2023 0 Pharmac y Data Transac tion Service Facilit y LORAZEPAM (lorazepam) , 0.5 MG, TABLET, ORAL, AUROBINDO PHARM, 500 ea. BOTTLE Active [id number] 4 2023 45 Pharmac y Data Transac tion Service Facilit y LORAZEPAM (lorazepam) , 0.5 MG, TABLET, ORAL, AUROBINDO PHARM, 500 ea. BOTTLE Active [id number] 4 2023 45 Pharmac y Data Transac tion Service Facilit y METOPROLOL SUCCINATE (metoprolol succinate), 25 MG, TAB ER 24H, ORAL, ACTAVIS/TEV A, 100 ea. BOTTLE Active [id number] 4 2023 45 Pharmac y Data Transac tion Service Facilit y ROSUVASTATI N CALCIUM (rosuvastat in calcium), 40 MG, TABLET, ORAL, CAMBER PHARMACE, 30 ea. BOTTLE Active [id number] 4 2023 90 Pharmac y Data Transac tion Service Facilit y Immunizations Combined list of available immunizations from the Department of Defense and Veterans Affairs facilities. Immunization Series Date Given Administered By Site Reaction Lot Number CVX Code Drug Video Game Technician Status Comments Source COVID-19, mRNA, LNP-S, PF, 30 mcg/0.3 mL dose 2020 [email or web address] [place] (PFR) Not Given COVID-19, mRNA, LNP-S, [...] Given Influenza , seasonal, injectabl e, preservat okffi free DoD influenza virus vaccine, split virus (incl. purified surface antigen)-reti red CODE 1 2005 Unknown, Provider [id number] 15 [facility] ([facility]) complet ed influenza virus vaccine, split virus (incl. purified surface antigen)- retired CODE DoD influenza virus vaccine, split virus (incl. purified surface antigen)-reti red CODE 1 2004 Unknown, Provider [id number] Sanofi Pasteur ([facility]) complet ed influenza virus vaccine, split virus (incl. purified surface antigen)- retired CODE DoD typhoid vaccine, parenteral, other than acetone-kille d, dried 1 2004 Unknown, Provider [id number] Sanofi Pasteur ([facility]) complet ed typhoid vaccine, parentera l, other than acetone-k illed, dried DoD hepatitis A vaccine, adult dosage 1 2004 Unknown, Provider [id number] 52 [facility] ed hepatitis A vaccine, adult dosage DoD influenza virus vaccine, whole virus 1 1998 Unknown, Provider [id number] 16 [facility] complet ed influenza virus vaccine, whole virus [facility] tuberculin skin test; purified protein derivative solution, intradermal 1 1997 Unknown, Provider 96 Transcribed (TRS) complet ed tuberculi n skin test; purified protein derivativ e solution, intraderm al DoD Procedures Combined list of: 1) Procedures from Department of Veterans Affairs facilities going back up to thelast 18 months, not all [place] non-surgical procedures are included; 2) All procedures from the Department of Defense facilities. Procedure Procedure Type Code Date Perfomer Comments Brianna nery EXCISION OF HEMORRHOIDS 09/13/1993 [facility] Social History Combined list of available smoking, tobacco, and other social history from Department of Defense and Veterans Affairs facilities. Social History Type Response Date Comment Karen gabriel This section is an empty social history section. DoD
--- OUTSIDE RECORDS SUMMARY | 2025-01-17 19:20 | XMS_ITS | Clinical Summary ---
Author Organization [facility] Address [address] [place] [address] Care Team Providers Care Kaiawhina Kura Kaupapa Maori Name Role Phone Corey Angel MD Primary Care Provider Allergies No known active allergies Medications rosuvastatin [...] this topic Insurance HUMANA HUMANA Care Teams Kaiawhina Kura [place] Maori Relationship Specialty Start Date End Date Corey Angel MD [address] [place] [phone] PCP - General INTERNAL MEDICINE 02/25/21
--- OUTSIDE RECORDS SUMMARY | 2025-01-17 19:20 | XMS_ITS | Encounter Summary ---
Author Organization [facility] Address [facility] [place] [address] Care Team Providers Care Drop Worker Name Role Phone Corey Angel MD Primary Care Provider [phone] Encounter Details Date Type Department Care Team (Latest Contact Info) Description 01/18/2024 Syncapset Message [facility]-[address] [address] Diego Muse MD [address] [place] [address] [place] [address] [place] [phone] Heart Monitor Status Social History Tobacco Use [...] on filedocumented in this encounter Care Teams Drop Worker Relationship Specialty Start Date End Date Corey Angel MD [address] [place] [address] PCP - General INTERNAL MEDICINE 02/25/21 documented as of this encounter
--- OUTSIDE RECORDS SUMMARY | 2025-01-17 19:20 | XMS_ITS | Referral Summary ---
Author Organization [facility] Address [address] [place] [address] Care Team Providers Care Spikemaking Supervisor Name Role Phone Corey Angel MD Primary Care Provider [phone] Nallely Thomson MD Unavailable Harman Morales MD Unavailable [phone] James Robert DO Unavailable [phone] Encounters Date Type Department Care Team Description 01/09/2025 Telephone [facility] Cardiology [facility] 8th [place] [address] [place] [address] Albino Yanez MD 01/08/2025 Telephone [facility] Cardiology [facility]1 [facility] 8th [place] [address] [place] [address] Kim Sewell 01/08/2025 Documentation [facility] Cardiology [facility] Floor 1, [address] [place] [address] Sara Hendrix RN 01/08/2025 11:00 AM CDT Office Visit [facility] Cardiology [facility] Floor 1, [address] [place] [phone] Albino Yanez MD Coronary artery disease involving [place] heart without angina pectoris, unspecified vessel or lesion type (Primary Dx); Body mass index (BMI) of 39.0 to 39.9 in adult; High risk medication use; Essential hypertension 01/07/2025 12:44 PM CDT - 01/07/2025 11:59 PM CDT Hospital Encounter [facility] [address] [place] [address] Pain in right foot; Swelling of right foot Discharge Disposition: Discharge to home or self care 01/01/2025 Telephone [facility] Building 2 Radiation Oncology [address] [place] [address] BrockwayJatin roa 12/31/2024 Orders Only [facility] Building 2 Radiation Oncology [address] [place] [address] Simon Garcia PA Pain in right foot (Primary Dx); Swelling of right foot 12/20/2024 10:30 AM CDT Ancillary Procedure [facility] Cardiology [address] [place] [address] Palpitations 12/06/2024 1:15 PM CDT Office Visit [facility] Physicians [facility] On[facility] [address] [place] [address] James Robert DO Prostate cancer (HCC) (Primary Dx) 11/27/2024 1:30 PM TAP DANCER Office Visit [facility] Building 2 Radiation Oncology [address] [place] [address] Simon Garcia PA Prostate cancer (HCC) (Primary Dx); Personal history of radiation therapy 11/22/2024 3:10 PM TAP DANCER - 11/22/2024 11:59 PM TAP DANCER Hospital Encounter [address] [address] Prostate cancer (HCC) Discharge Disposition: Discharge to home or self care 11/22/2024 3:00 PM TAP DANCER Lab [facility] Outpatient Lab at [address] [address] Prostate cancer (HCC) (Primary Dx) 11/19/2024 Telephone [facility] Cardiology [address] [place] [address] [place] [phone] Dana López 11/16/2024 Telephone [facility] Oncology [address] [place] [address] [address] [place] [address] Sherin Armenta CMA 11/06/2024 Telephone [facility] [address] [place] [address] Referral, Self Appointment Request 10/29/2024 Orders Only [facility] Building 2 Radiation Oncology [address] [place] [address] Taya Cartagena, MICAH Prostate cancer (HCC) (Primary Dx) 10/22/2024 1:51 PM TAP DANCER - 10/22/2024 11:59 PM TAP DANCER [facility] [address] [place] [address] Prostate cancer (HCC) Discharge Disposition: Discharge to home or self care 10/22/2024 2:00 PM TAP DANCER Lab [facility] Outpatient Lab at [address] [phone] Prostate cancer (HCC) (Primary Dx) 10/19/2024 Completion of Therapy [facility] Office Building 2 Radiation Oncology [address] [place] [address] Harman Morales MD 10/19/2024 OTV [facility] Office [facility] 2 Radiation Oncology [address] [place] [address] Ariela Boyle MD Prostate cancer (HCC) (Primary Dx) 10/19/2024 Orders Only RAD ONC TREATMENTS Miscellaneous, Not In File 10/19/2024 1:00 PM TAP DANCER Treatment [facility] Office Building 2 Radiation Oncology [address] [place] [address] Harman Morales MD from Last 3 Months [...] mL auto-injectorInd ications:Coronar y artery disease involving blue [place] heart without angina pectoris, unspecified vessel or [...] 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 - Left 05/30/2018 Knee pain 04/22/2016 Immunizations [...] on file Legal Sex Male 2:49 AM TAP DANCER Gender Identity Male 05/22/2018 10:57 AM CDT Sexual Orientation Straight 11/03/2020 7: 01 PM TAP DANCER Occupation Industry Job Start Date Job End Date working Not on file Not on file 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 Not on file [...] TOTAL TESTOSTERONE Routine 11/22/2024 3: 10 PM TAP DANCER Prostate cancer (HCC) PSA DIAGNOSTIC Routine 11/22/2024 3:10 PM TAP DANCER Prostate cancer (HCC) EGFR Routine 10/22/2024 1:51 PM TAP DANCER Prostate cancer (HCC) DIFFERENTIAL AUTO Routine 10/22/2024 1:5 1 PM TAP DANCER Prostate cancer (HCC) CBC WITH AUTO DIFFERENTIAL Routine 10/22/2024 1:51 PM TAP DANCER Prostate cancer (HCC) COMPREHENSIVE METABOLIC PANEL Routine 10/22/2024 1:51 PM TAP DANCER Prostate cancer (HCC) RAD ONC ARIA SESSION SUMMARY 10/19/2024 1:14 PM TAP DANCER from Last 3 Months Results * US Vein Duplex Lower Extremity Right Limited, Unilateral (01/07/2025 1:27 PM CDT) Anatomical Region Laterality Modality Vascular Right Ultrasound 01/07/2025 1:07 PM CDT Narrative 01/08/2025 12:01 PM CDT Lower Extremity Venous Report Patient Name: NALLELY MEJIA S : 1950 (74y 1m) Gender: M Study Date: 01/07/2025 01:07:40 PM Hot Mill Roller: Tracy Guzman RDMS,RVT Order Provider: SIMON GARCIA [...] Gender: M Study Date: 01/07/2025 01:07:40 PM Hot Mill Roller: Tracy Guzman RDMS,RVT Order Provider: SIMON GARCIA [...] phy Narrative 12/26/2024 5:05 PM CDT AMBULATORY OCCUPATIONAL MEDICINE SPECIALIST REPORT Patient Name: Nallely Mejia Date of [...] was used to complete this document, therefore, certified medical dosimetrist variances may occur. Sushant [place] MD, [facility] 12/26/24 Procedure Note Sushant [place] MD - 12/26/2024 AMBULATORY OCCUPATIONAL MEDICINE SPECIALIST REPORT Patient Name: Nallely Mejia Date of [...] software was used to complete this document, therefore,certified medical dosimetrist variances may occur. Sushant [place] MD, [facility] 12/26/24 Corey Angel MD CV CARDIAC SERVICES PROCEDURE S Final Result * (ABNORMAL) Total testosterone (11/22/2024 3:10 PM TAP DANCER) Testosterone <3(L) 193 - 740 ng/dL Blood 11/22/2024 3:10 PM TAP DANCER 11/22/2024 9:25 PM TAP DANCER Simon TAN LAB BLOOD ORDERABLES Final Result Performing Organization Address City/[facility]/ZIP Co de Phone Number [place] [address] [place] [address] * PSA diagnostic (11/22/2024 3:10 PM TAP DANCER) Pathologist [facility] PSA-Total <0.01 <=6.20 ng/mL Comment: Interpretive Data [...] last revised 22. Blood 11/22/2024 3:10 PM TAP DANCER 11/22/2024 9:25 PM TAP DANCER Simon TAN LAB [place]LO[place] [address] [address] [place] [address] * eGFR (10/22/2024 1:51 PM TAP DANCER) eGFR >90 >=60 mL/min/1. 73 m2 Comment: [...] last reviewed 2021. Blood 10/22/2024 1:51 PM TAP DANCER 10/22/2024 7:49 PM TAP DANCER us James Robert DO LAB BLOOD ORDERABLES Final R esult [facility] [address] [address] Department [place] [address] * (ABNORMAL) Differential, auto (10/22/2024 1:51 PM TAP DANCER) Neutrophil abs 3.5 1.5 - 6.5 K/cumm Imm gran abs 0.0 0.0 - 0.1 K/cumm [facility] Lymphocyte abs 0.3(L) 0.8 - 3.3 K/cumm [facility] Monocyte abs 1.1(H) 0.2 - 0.8 K/cumm [facility] Eosinophil abs 0.4 0.0 - 0.5 K/cumm [facility] Basophil abs 0.0 0.0 - 0.1 K/cumm [facility] Neutrophil pct 65.4 % [facility] Comment: Consistent with previous result Interpretive Data Percent cell count reference ranges are not reported, since discordance with absolute values may lead to misinterpretation of CBC data. Current Interpretive Data was last revised on 2018. Imm gran pct 0.4 % [facility] Comment: Interpretive Data Percent cell count reference ranges are not reported, since discordance with absolute values may lead to misinterpretation of CBC data. Current Interpretive Data was last revised on 2018. Lymphocyte pct 6.1 % [facility] Comment: Interpretive Data Percent cell count reference ranges are not reported, since discordance with absolute values may lead to misinterpretation of CBC data. Current Interpretive Data was last revised on 2018. Monocyte pct 20.3 % [facility] Comment: Interpretive Data Percent cell count reference ranges are not reported, since discordance with absolute values may lead to misinterpretation of CBC data. Current Interpretive Data was last revised on 2018. Eosinophil pct 7.0 % [facility] Comment: Interpretive Data Percent cell count reference ranges are not reported, since discordance with absolute values may lead to misinterpretation of CBC data. Current Interpretive Data was last revised on 2018. Basophil pct 0.8 % [facility] Comment: Interpretive Data Percent cell count reference ranges are not reported, since discordance with absolute values may lead to misinterpretation of CBC data. Current Interpretive Data was last revised on 2018. Blood 10/22/2024 1:51 PM TAP DANCER 10/22/2024 7:31 PM TAP DANCER us James Robert DO LAB BLOOD ORDERABLES Final R esult [facility] [address] [address] Department [place] [address] * (ABNORMAL) CBC with auto differential (10/22/2024 1:51 PM TAP DANCER) WBC 5.3 3.8 - 9.9 K/cumm Hgb 11.0(L) 13.0 - 17.5 g/dL [facility] Hct 35.2(L) 38.9 - 50.3 % [facility] Plt 191 150 - 400 K/cumm [facility] MPV 10.9 9.1 - 12.3 fL [facility] RBC 3.71(L) 4.30 - 5.80 M/cumm [facility] MCV 94.9 81.3 - 96.4 fL [facility] MCH 29.6 27.1 - 33.3 pg [facility] MCHC 31.3(L) 32.3 - 35.7 g/dL [facility] RDW CV 15.0(H) 11.1 - 14.9 % [facility] SD 51.5(H) 35.7 - 48.1 fL [facility] NRBC abs 0.00 0.00 - 0.01 K/cumm [facility] Blood 10/22/2024 1:51 PM TAP DANCER 10/22/2024 7:31 PM TAP DANCER James Robert DO LAB [place]LOOD [place] [address] Department [place] [address] * (ABNORMAL) Comprehensive metabolic panel (10/22/2024 1:51 PM TAP DANCER) Sodium 142 135 - 145 mmol/L Potassium, [...] Units/L [facility] Blood 10/22/2024 1:51 PM TAP DANCER 10/22/2024 7:31 PM TAP DANCER us James Robert DO LAB [place]LOOD [place] [address] [address] Department [place] [address] * RAD ONC ARIA SESSION SUMMARY (10/19/2024 1:14 PM TAP DANCER) Course Name [id number] ARIA Course Plan Date 08/20/2024 12:00 PM ARIA Elapsed Days 44 ARIA Treatment Start Date 09/05/2024 ARIA Treatment Site [id number] ARIA Dose Given To Date (cGy) 7,000 ARIA Session Dosage Given (cGy) 250 ARIA Plan ID PROSTATE_L NS ARIA Fractions Treated 28 ARIA Prescribed Dose Per Fraction (cGy) 250 ARIA Prescribed Total Dose (cGy) 7,000 ARIA 10/19/2024 1:14 PM TAP DANCER us Not In File Miscellaneous RADIATION ONCOLOGY ORD ERABLES Final Result ARIA from Last 3 Months Insurance [employer] HUMANA CHOICE MEDICARE PPO MEDICARE FOR LIFE FOR LIFE HUMANA CHOICE MEDICARE PPO Care Teams Spikemaking Supervisor Relationship Specialty Start Date End Date Corey Angel MD [address] [facility] [address] [place] [address] PCP - General Internal Medicine 06/18/21 Nallely Thomson MD [address] DIV [place] [address] Referring Physician Urology 06/14/24 Harman Morales MD [address] [place] [address] [address] [place] [address] Radiation Oncologist Radiation Oncology 06/22/24 James Robert DO [address] [place] [address] MEDICAL ONCOLOGY, [facility] [address] [place] [address] Medical Oncologist/Dry Press Operator Helper Hematology and Oncology 07/12/24
--- OUTSIDE RECORDS SUMMARY | 2025-01-17 19:20 | XMS_ITS | Clinical Summary ---
Author Organization [facility] Address [address] [place] [address] Care Team Providers Care Ore Grader Name Role Phone Corey Angel MD Primary Care Provider [phone] Nallely Thomson MD Unavailable Harman Morales MD Unavailable [phone] James Robert DO Unavailable [phone] Allergies No known active allergies Medications esomeprazole [...] mL auto-injectorInd ications:Coronar y artery disease involving [place] heart without angina pectoris, unspecified vessel or [...] Squamous cell carcinoma of skin of left anglican - Left 05/30/2018 Knee pain 04/22/2016 Encounters Date Type Department Care Team Description 01/09/2025 Telephone [facility] Cardiology [facility] 8th [place] [address] [place] [address] Albino Yanez MD 01/08/2025 11:00 AM CDT Office Visit [facility] Cardiology [facility] Floor 1, [address] [place] [phone] Albino Yanez MD Coronary artery disease involving [place] heart without angina pectoris, unspecified vessel or lesion type (Primary Dx); Body mass index (BMI) of 39.0 to 39.9 in adult; High risk medication use; Essential hypertension 01/08/2025 Telephone [facility] Cardiology [address] [place] [address] 8th [place] [address] [place] [phone] Kim Sewell 01/08/2025 Documentation [facility] Cardiology [facility] Floor 1, [address] [place] [phone] Sara Hendrix RN 01/07/2025 12:44 PM CDT - 01/07/2025 11:59 PM CDT Hospital Encounter [facility] Vascular Lab [address] [place] [address] Pain in right foot; Swelling of right foot Discharge Disposition: Discharge to home or self care 01/01/2025 Telephone [facility] Medical Office Building 2 Radiation Oncology [facility] [place] [address] Lucila Rodriguez 12/31/2024 Orders Only [facility] Medical Office Building 2 Radiation Oncology [facility] [place] [address] Simon Garcia, PA Pain in right foot (Primary Dx); Swelling of right foot 12/20/2024 10:30 AM CDT Ancillary Procedure [facility] Cardiology [address] [place] [address] Palpitations 12/06/2024 1:15 PM CDT Office Visit [facility] On[facility] [address] [facility] [address] [place] [phone] James Robert DO Prostate cancer (HCC) (Primary Dx) 11/27/2024 1:30 PM [employer] SUPERVISOR Office Visit [facility] Medical Office Building 2 Radiation Oncology [address] [place] [address] Simon Garcia PA Prostate cancer (HCC) (Primary Dx); Personal history of radiation therapy 11/22/2024 3:10 PM [employer] SUPERVISOR - 11/22/2024 11:59 PM [employer]ANT SUPERVISOR Hospital Encounter [address] [address] Prostate cancer (HCC) Discharge Disposition: Discharge to home or self care 11/22/2024 3:00 PM S[employer]ANT SUPERVISOR Lab [facility] Outpatient Lab at [address] [address] Prostate cancer (HCC) (Primary Dx) 11/19/2024 Telephone [facility] Cardiology [address] [place] [address] 8th [place] [address] [place] [address] Dana López 11/16/2024 Telephone [facility] Oncology [address] [place] [address] [address] [place] [phone] Sherin Armenta, BESS 11/06/2024 Telephone [facility] [address] [place] [address] Referral, Self Appointment Request 10/29/2024 Orders Only [facility] Medical Office Building 2 Radiation Oncology [address] [place] [address] Taya Cartagena, MICAH Prostate cancer (HCC) (Primary Dx) 10/22/2024 2:00 PM [employer] SUPERVISOR Lab [facility] Outpatient Lab at [address] [address] Prostate cancer (HCC) (Primary Dx) 10/22/2024 1:51 PM S[employer] PLANT SUPERVISOR - 10/22/2024 11:59 PM S[employer]ANT SUPERVISOR Hospital Encounter [address] [address] Prostate cancer (HCC) Discharge Disposition: Discharge to home or self care 10/19/2024 1:00 PM [employer] SUPERVISOR Treatment [facility] Office Building 2 Radiation Oncology [address] [place] [address] Harman Morales MD 10/19/2024 Completion of Therapy [facility] Office Building 2 Radiation Oncology [address] [place] [address] Harman Morales MD 10/19/2024 OTV [facility] Medical Office Building 2 Radiation Oncology [address] [place] [address] Ariela Boyle MD Prostate cancer (HCC) (Primary Dx) 10/19/2024 Orders Only RAD ONC TREATMENTS Miscellaneous, Not In File from Last 3 Months Immunizations Immunization Administration Dates Next Due Influenza, Trivalent, IM (RIIS) 09/08/2016 Surgical History Surgery Date Site/Laterality Comments [...] on file Legal Sex Male 2:49 AM SUL[employer] SUPERVISOR Gender Identity Male 05/22/2018 10:57 AM CDT Sexual Orientation Straight 11/03/2020 7: 01 PM [employer] SUPERVISOR Occupation Industry Job Start Date Job End Date working Not on file Not on file 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 Not on file [...] TOTAL TESTOSTERONE Routine 11/22/2024 3: 10 PM [employer] SUPERVISOR Prostate cancer (HCC) PSA DIAGNOSTIC Routine 11/22/2024 3:10 PM [employer] SUPERVISOR Prostate cancer (HCC) EGFR Routine 10/22/2024 1:51 PM [employer] SUPERVISOR Prostate cancer (HCC) DIFFERENTIAL AUTO Routine 10/22/2024 1:5 1 PM [employer] SUPER[employer]OR Prostate cancer (HCC) CBC WITH AUTO DIFFERENTIAL Routine 10/22/2024 1:51 PM [employer] SUPERVISOR Prostate cancer (HCC) COMPREHENSIVE METABOLIC PANEL Routine 10/22/2024 1:51 PM [employer] SUPERVISOR Prostate cancer (HCC) RAD ONC ARIA SESSION SUMMARY 10/19/2024 1:14 PM S[employer] SUPERVISOR from Last 3 Months Results * US Vein Duplex Lower Extremity Right Limited, Unilateral (01/07/2025 1:27 PM CDT) Anatomical Region Laterality Modality Vascular Right Ultrasound 01/07/2025 1:07 PM CDT Narrative 01/08/2025 12:01 PM CDT Lower Extremity Venous Report Patient Name: NALLELY MEJIA S : 1950 (74y 1m) Gender: M Study Date: 01/07/2025 01:07:40 PM Activities Coordinator: Tracy Guzman RDMS,RVT Order Provider: SIMON GARCIA [...] Gender: M Study Date: 01/07/2025 01:07:40 PM Activities Coordinator: Tracy Guzman RDMS,RVT Order Provider: SIMON GARCIA [...] phy Narrative 12/26/2024 5:05 PM CDT AMBULATORY TRICOT KNITTING MACHINE OPERATOR REPORT Patient Name: Nallely Mejia Date of [...] was used to complete this document, therefore, tool and die designer variances may occur. Sushant Madison MD, [facility] 12/26/24 Procedure Note Sushant Madison MD - 12/26/2024 AMBULATORY TRICOT KNITTING MACHINE OPERATOR REPORT Patient Name: Nallely Mejia Date of [...] software was used to complete this document, therefore,tool and die designer variances may occur. Sushant Madison MD, [facility] 12/26/24 us Corey Angel MD CV CARDIAC SERVICES PROCEDURE S Final Result * (ABNORMAL) Total testosterone (11/22/2024 3:10 PM S[employer] SUPERVISOR) Testosterone <3(L) 193 - 740 ng/dL Blood 11/22/2024 3:10 PM SULF[employer]ANT SUPERVISOR 11/22/2024 9:25 PM SULF[employer] PLANT SUPERVISOR us Simon TAN LAB BLOOD ORDERABLES Final Result Performing Organization Address [facility] Co de Phone Number SHILPA BRITTON [address] [address] Department [place] [address] * PSA diagnostic (11/22/2024 3:10 PM SULF[employer] SUPERVISOR) PSA-Total <0.01 <=6.20 ng/mL Comment: Interpretive Data [...] last revised 22. Blood 11/22/2024 3:10 PM SULF[employer] PLANT SUPERVISOR 11/22/2024 9:25 PM SULF[employer] PLANT SUPERVISOR Simon TAN LAB BLOOD ORDERABLES Final Result Performing Organization Address [facility] Co de Phone Number SHILPA BRITTON [address] [address] Department [place] [address] * eGFR (10/22/2024 1:51 PM SULF[employer] SUPERVISOR) eGFR >90 >=60 mL/min/1. 73 m2 Comment: [...] last reviewed 2021. Blood 10/22/2024 1:51 PM SULF[employer] PLANT SUPERVISOR 10/22/2024 7:49 PM SULF[employer] PLANT SUPERVISOR us James Robert DO LAB BLOOD ORDERABLES Final R esult [facility] [address] [address] Department [place] [address] * (ABNORMAL) Differential, auto (10/22/2024 1:51 PM SULF[employer] PLANT SUPERVISOR) Neutrophil abs 3.5 1.5 - 6.5 K/cumm [...] on 2018. Imm gran pct 0.4 % [facility] Comment: Interpretive Data [...] revised on 2018. Blood 10/22/2024 1:51 PM SULF[employer] PLANT SUPERVISOR 10/22/2024 7:31 PM SULFUR[employer] PLANT SUPERVISOR James Robert DO LAB BLOOD ORDERABLES Final [facility]ult [facility] [address] [address] Department [place] [address] * (ABNORMAL) CBC with auto differential (10/22/2024 1:51 PM SULFUR[employer] PLANT SUPERVISOR) WBC 5.3 3.8 - 9.9 K/cumm Hgb [...] HOSPITAL MCH 29.6 27.1 - 33.3 pg [facility] MCHC 31.3(L) 32.3 - 35.7 g/dL [facility] RDW CV 15.0(H) 11.1 - 14.9 % [facility] RDW SD 51.5(H) 35.7 - 48.1 fL [facility] NRBC abs 0.00 0.00 - 0.01 K/cumm [facility] Blood 10/22/2024 1:51 PM SULFURIC AC[employer] PLANT SUPERVISOR 10/22/2024 7:31 PM SULFURIC AC[employer] PLANT SUPERVISOR James Robert DO LAB BLOOD ORDERABLES Final R esult SHILPA BRITTON [address] [address] Department [employer] [place] [address] * (ABNORMAL) Comprehensive metabolic panel (10/22/2024 1:51 PM SULFURIC ACID PLANT SUPERVISOR) Sodium 142 135 - 145 mmol/L Potassium, [...] Units/L [facility] Blood 10/22/2024 1:51 PM SULFURIC ACID PLANT SUPERVISOR 10/22/2024 7:31 PM SULFUR[employer] AC[employer] PLANT SUPERVISOR James Robert DO LAB BLOOD ORDERABLES Final R esult Performing Organization Address City/[facility]/ZIP Co de Phone Number SHILPA BRITTON [address] [address] Department [place] [employer] [place] [address] * RAD ONC ARIA SESSION SUMMARY (10/19/2024 1:14 PM SULF[employer] PLANT SUPERVISOR) Course Name [id number]_[id number] E_2023 ARIA Course [...] Dose (cGy) 7,000 ARIA 10/19/2024 1:14 PM SULFURIC AC[employer] PLANT SUPERVISOR us Not In File Miscellaneous RADIATION ONCOLOGY ORD ERABLES Final Result ARIA from Last 3 Months Insurance [employer] CHOICE MEDICARE PPO MEDICARE FOR LIFE [facility] FOR LIFE [employer] CHOICE MEDICARE [place]PO [place] [id number] Care Teams Ore Grader Relationship Specialty Start Date End Date Corey Angel MD [address] [facility] [address] INTERNAL MEDICINE [place], [place] [id number] PCP - General Internal Medicine 06/18/21 Nallely Thomson MD [address] [facility] [address] [place] [address] Referring Physician Urology 06/14/24 Harmna Morales MD [address] [place] [address] [address] [place] [address] Radiation Oncologist Radiation Oncology 06/22/24 Jamse Robert DO [address] [place] [address] MEDICAL ONCOLOGY, [facility] [address] [place] [address] Medical Oncologist/Planner Scheduler Hematology and Oncology 07/12/24
--- NOTE | 2025-01-17 19:21 | ED.UPPEXIN ---
HPI - Extremity Injury (Upper) General Chief Complaint: Extremity Injury, Upper Stated Complaint: fall, on eliquis Time Seen by Provider: 01/17/25 18:34 History of Present Illness HPI narrative: 74-year-old male presenting to the emergency department after mechanical fall off a curb. Patient states he was walking outside when he tripped on the curb with his right foot and landed onto his right hand and forearm as well as right knee. He was able to get up unassisted. Did not hit his head or lose consciousness. Patient does take Eliquis. Was not in any distress, denies any pain at this time. States that occasionally gets some pain when he supinates and pronates his wrist but no loss of inclusion intern strength or paresthesias. No other complaints at this time. Ambulatory in the emergency department. Thought he was going to be safe and came to the ER for evaluation. Did not take anything for pain prior to arrival. Related Data Home Medications ?Medication ?Instructions ?Recorded ?Confirmed ?Last Taken ?Type cholecalciferol (vitamin D3) 50 2,000 unit PO DAILY 09/28/22 12/28/24 09/22/24 History mcg (2,000 unit) tablet (Vitamin D3) psyllium (Hydrocil Instant oral 1 packet PO DAILY 09/23/24 12/28/24 09/22/24 History packet) trazodone 50 mg tablet 50 mg PO QHS insomnia 09/23/24 12/28/24 09/22/24 History [employer] 12/03/24 12/28/24 Unknown History Allergies Allergy/AdvReac Type Severity Reaction Status Date / Time No Known Allergies Allergy Verified 01/17/25 18:42 Review of Systems Review of Systems: As reviewed above in HPI [facility] Past Medical History Medical History Encounter for routine adult health examination without abnormal findings Hypersomnolence Prostate cancer Sinus drainage BMI 34.0-34.9,adult Insomnia Anxiety Aortic arch aneurysm BMI 38.0-38.9,adult Hematuria Acute pain of right shoulder Tick bite Ascending aortic aneurysm Aortic root enlargement Change in vision Abnormal finding of diagnostic imaging Basal cell carcinoma Colon cancer screening Follow up Elevated serum protein level Elevated glucose Hyperlipidemia Hx of colonic polyps Encounter for special screening examination for neoplasm of prostate Vitamin D deficiency Iron deficiency anemia Abnormal finding of blood chemistry, unspecified DJD (degenerative joint disease), multiple sites Encounter for Medicare annual wellness exam BMI 35.0-35.9,adult Fatty liver Ileus On fci drug therapy Hematuria, microscopic Hypokalemia Elevated LFTs Hx of gallstones BMI 37.0-37.9, adult Abdominal bloating Nausea and vomiting Hemorrhoid Hiatal hernia GERD (gastroesophageal reflux disease) Surgical History Surgical History S/P cholecystectomy H/O hemorrhoidectomy History of colonoscopy Family History Family History Father Hypertension Family history of renal failure CHF (congestive heart failure) Sibling Diabetes mellitus Mother CHF (congestive heart failure) Social History Social History Smoking status: Never smoker Second hand tobacco smoke exposure: No Alcohol intake: never Substance use: never Substance use type: does not use Do You Feel Safe in your Home?: Yes Lack of Transportation: No Lack of Food: Never True Current Housing: I Have Housing Concerned About Future Housing: No Difficulty Paying Gas/Electric Bills: No Difficulty Paying for Meds: No Currently Unemployed: No Education: Master's Degree or Higher Difficulty w/ Childcare or Family Care: No Living arrangements: with family Gender identity (if verbalized by the patient): Male Spiritual care concerns: No Exam Narrative: GENERAL: [Well-appearing, well-nourished, and in no acute distress.] HEAD: [Normocephalic, atraumatic.] EYES: [PERRLA and EOMI.] ENT: Nares clear, no rhinorrhea or epistaxis. Mucous membranes moist. NECK: Supple. CHEST: [Clear to auscultation. No respiratory distress.] HEART: [Regular rate and rhythm]. No murmur heard. [Normal peripheral pulses.] ABDOMEN: [Soft, nondistended], [nontender], [No rigidity or guarding] EXTREMITIES: Normal range of motion. [No edema.] Normal inclusion intern strength 5/5, able to oppose each digit make an okay sign. Make a thumbs-up sign without difficulty. Full range of motion of the knee, able to plantar and dorsiflex at the ankle. Able to hold extensor mechanism of the right leg. Mild tenderness to palpation over the dorsum of the right foot mid forearm but no step-offs deformities on exam. No crepitus. SKIN: Warm, dry, no rash. NEURO: [No focal deficits]. Alert and oriented [x3.] PSYCH: [Normal mood and affect.] Course Vital Signs Vital signs: Vital Signs Temperature 36.4 C 01/17/25 18:11 Pulse Rate 115 H 01/17/25 18:11 Respiratory Rate 20 01/17/25 18:11 Blood Pressure 157/112 H 01/17/25 18:11 Pulse Oximetry 97 01/17/25 18:11 Oxygen Delivery Room Air 01/17/25 18:11 Temperature 36.4 C 01/17/25 18:11 Pulse Rate 100 01/17/25 19:14 Respiratory Rate 18 01/17/25 19:14 Blood Pressure 135/111 H 01/17/25 19:14 Pulse Oximetry 94 01/17/25 19:14 Oxygen Delivery Room Air 01/17/25 18:11 MDM - Extremity Injury (Upper) MDM Narrative Medical decision making narrative: 74-year-old male presenting to the emergency department after mechanical fall off of a curb. He landed onto his right arm and knee. Did not hit his head or lose consciousness. He does take Eliquis. He has no neurological complaints. Normal inclusion intern strength and able to hold extensor mechanisms his right knee. Good distal mechanics, neuro vasculature is intact. Suspicion presently is for potential contusion and less likely occult fracture of the wrist, radius/ulna or knee. X-rays were obtained of the injured extremities and his provided Tylenol for analgesia. X-rays were obtained that shows no acute fractures or dislocations. Trace degenerative disease. Patient felt improved after Tylenol he is safe for stable discharge home at this time. Will follow-up as needed and return if pain worsens. Medical Records Attestation: I reviewed the patient's medical records. Imaging Data Attestation: I personally reviewed and interpreted this imaging study as follows: My impression: Impressions Forearm X-Ray 01/17/25 19:45 IMPRESSION: No acute fracture or dislocation. Knee X-Ray 01/17/25 19:46 IMPRESSION: Degenerative disease without acute fracture. Wrist X-Ray 01/17/25 19:47 IMPRESSION: Trace degenerative disease, without acute fracture. Discharge Plan Discharge Clinical Impression: Accidental fall involving sidewalk curb, Musculoskeletal pain of extremity Patient Disposition: Home Condition: Stable Instructions: Antibiotic Form Additional Instructions: Your x-rays were negative for any fractures. Take Tylenol and ibuprofen for any aches or pains. Follow-up with regular doctor. Return with any new or worsening concerns. Patient Language: Slovak Prescriptions: No Action [facility] metoprolol succinate 25 mg tablet extended release 24 hr See Rx Instructions .ROUTE .COMPLEX Qty: 90 0RF Dose Instruction: TAKE 1/2 TABLET(12.5MG) BY MOUTH DAILY Rx Instructions: TAKE 1/2 TABLET(12.5MG) BY MOUTH TWICE DAILY zolpidem 10 mg tablet 10 mg PO QHS Qty: 90 0RF cholecalciferol (vitamin D3) [Vitamin D3] 50 mcg (2,000 unit) Tablet 2,000 unit PO DAILY trazodone 50 mg tablet 50 mg PO QHS Rx Instructions: Take 1-2 tablets by oral route nightly at bedtime Hydrocil Instant Packet 1 packet PO DAILY Rx Instructions: mix into at least 8 oz of water or juice before administering icosapent ethyl 1 gram capsule See Rx Instructions .ROUTE .COMPLEX Qty: 360 1RF Dose Instruction: TAKE 2 CAPSULES BY MOUTH TWICE DAILY Rx Instructions: TAKE 2 CAPSULES BY MOUTH TWICE DAILY rosuvastatin 20 mg tablet See Rx Instructions .ROUTE .COMPLEX Qty: 90 1RF Dose Instruction: TAKE 1 TABLET BY MOUTH DAILY Rx Instructions: TAKE 1 TABLET BY MOUTH DAILY lorazepam 0.5 mg tablet 0.5 mg PO TID PRN (Reason: anxiety) Qty: 45 1RF Eliquis 5 mg tablet 5 mg PO BID Qty: 180 0RF Rx Instructions: Please start 5mg po bid once You have finished 10mg tablets. Meaning after one week. Follow-up/Referrals: Corey Angel MD [Primary Care Provider] - Time of Disposition: 20:20
[2025-01-17] MEDS: ACETAMINOPHEN 500 MG TABLET 1000 MG PO (19:46)
[2025-01-17 20:34] VITALS: BP 118/100; PULSE 96; RESP 18; O2SAT 96
== END 2025-01-17 20:34 | disposition home or self-care (01) ==
PROVIDERS: Emergency Provider Student in an Organized Health Care Education/Training Program; PCP Internal Medicine
DX: M79.601 Pain in right arm (principal); M25.561 Pain in right knee; W18.30XA Fall on same level, unspecified, initial encounter; Z79.01 Long term (current) use of anticoagulants; E78.5 Hyperlipidemia, unspecified; E55.9 Vitamin D deficiency, unspecified; K21.9 Gastro-esophageal reflux disease without esophagitis; Z85.46 Personal history of malignant neoplasm of prostate
CPT/HCPCS: 73090; 73110; 73562; 99284; A9270

== ENCOUNTER 2025-01-18 10:56 | Outpatient (CLI) | payer MEDICARE, OTHER, SELFPAY ==
--- NOTE | ~2025-01-18 | XR_ITS ---
[id number] Ordering provider: Corey Angel MD History: . R07.81 - Pleurodynia RECENT FALL RT ARM FLANK PAIN . Comparison: None. FINDINGS: BONES: Possible fracture anteriorly seen at the level of the fifth, sixth, seventh and eighth ribs se en anteriorly.. LUNGS: No effusions or infiltrates. No pneumothorax. Prominent bronchovascular markings in the lower lobes. SOFT TISSUES: Normal. IMPRESSION: Possible fractures in the right fifth, sixth, seventh and eighth ribs. Reviewed, dictated and finalized at location A.
--- OUTSIDE RECORDS SUMMARY | 2025-01-18 11:19 | XMS_ITS | Referral Summary ---
Author Organization [facility] Address [address] [place] [address] Care Team Providers Care Respite Coordinator Name Role Phone Corey Angel MD Primary Care Provider Nallely Thomson MD Unavailable Harman Morales MD Unavailable [phone] James Robert DO Unavailable [phone] Encounters Date Type Department Care Team Description 01/09/2025 Telephone [facility] 8th [place] [address] [place] [address] Albino Yanez MD 01/08/2025 Telephone [facility] 8th [place] [address] [place] [address] Kim Sewell 01/08/2025 Documentation [facility] Cardiology [facility] Floor 1, [address] [place] [address] Sara Hendrix RN 01/08/2025 11:00 AM CDT Office Visit [facility] Floor 1, [address] [place] [id number] Albino Yanez MD Coronary artery disease involving [place] heart without angina pectoris, unspecified vessel or lesion type (Primary Dx); Body mass index (BMI) of 39.0 to 39.9 in adult; High risk medication use; Essential hypertension 01/07/2025 12:44 PM CDT - 01/07/2025 11:59 PM CDT Hospital Encounter [facility] Vascular Lab [address] [place] [address] Pain in right foot; Swelling of right foot Discharge Disposition: Discharge to home or self care 01/01/[address] [facility] Medical Office Building 2 Radiation Oncology [address] [place] [address] EdgemoorJatin roa 12/31/[address] [facility] Medical Office Building 2 Radiation Oncology [address] [place] [address] Simon Garcia PA Pain in right foot (Primary Dx); Swelling of right foot 12/20/2024 10:30 AM CDT Ancillary Procedure [facility] Cardiology [address] [place] [address] Palpitations 12/06/2024 1:15 PM CDT Office Visit [facility] Physicians [facility] Oncology [facility] [address] [place] [address] James Robert DO Prostate cancer (HCC) (Primary Dx) 11/27/2024 1:30 PM ARCHITECT MANAGER Office Visit [facility] Medical Office Building 2 Radiation Oncology [address] [place] [address] Simon Garcia PA Prostate cancer (HCC) (Primary Dx); Personal history of radiation therapy 11/22/2024 3:10 PM ARCHITECT MANAGER - 11/22/2024 11:59 PM ARCHITECT MANAGER Hospital Encounter [address] [address] Prostate cancer (HCC) Discharge Disposition: Discharge to home or self care 11/22/2024 3:00 PM ARCHITECT MANAGER Lab [facility] Outpatient Lab at [address] [address] Prostate cancer (HCC) (Primary Dx) 11/19/2024 Telephone [facility] Cardiology [address] [facility] 8th [place] [address] [place] [address] Dana López 11/16/2024 Telephone [facility] Oncology [address] [facility] [address] [place] [address] Sherin Armenta CMA 11/06/2024 Telephone [facility] [address] [place] [address] Referral, Self Appointment Request 10/29/[address] [facility] Medical Office Building 2 Radiation Oncology [address] [place] [address] Taya Cartagena, MICAH Prostate cancer (HCC) (Primary Dx) 10/22/2024 1:51 PM ARCHITECT MANAGER - 10/22/2024 11:59 PM ARCHITECT MANAGER Hospital Encounter [facility] [address] [place] [address] Prostate cancer (HCC) Discharge Disposition: Discharge to home or self care 10/22/2024 2:00 PM ARCHITECT MANAGER Lab [facility] Outpatient Lab at [address] [address] Prostate cancer (HCC) (Primary Dx) from Last 3 Months Allergies No known [...] mL auto-injectorInd ications:Coronar y artery disease involving [place] heart without angina pectoris, unspecified vessel or [...] Squamous cell carcinoma of skin of left yazidism - Left 05/30/2018 Knee pain 04/22/2016 Immunizations [...] file Legal Sex Male 2:49 AM ARCHITECT MANAGER Gender Identity Male 05/22/2018 10:57 AM CDT Sexual Orientation Straight 11/03/2020 7: 01 PM ARCHITECT MANAGER Occupation Industry Job Start Date Job End Date working Not on file 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 Not on file [...] TOTAL TESTOSTERONE Routine 11/22/2024 3: 10 PM ARCHITECT MANAGER Prostate cancer (HCC) PSA DIAGNOSTIC Routine 11/22/2024 3:10 PM ARCHITECT MANAGER Prostate cancer (HCC) EGFR Routine 10/22/2024 1:51 PM ARCHITECT MANAGER Prostate cancer (HCC) DIFFERENTIAL AUTO Routine 10/22/2024 1:5 1 PM ARCHITECT MANAGER Prostate cancer (HCC) CBC WITH AUTO DIFFERENTIAL Routine 10/22/2024 1:51 PM ARCHITECT MANAGER Prostate cancer (HCC) COMPREHENSIVE METABOLIC PANEL Routine 10/22/2024 1:51 PM ARCHITECT MANAGER Prostate cancer (HCC) from Last 3 Months Results * US Vein Duplex Lower Extremity Right Limited, Unilateral (01/07/2025 1:27 PM CDT) Anatomical Region Laterality Modality Vascular Right Ultrasound 01/07/2025 1:07 PM CDT Narrative 01/08/2025 12:01 PM CDT Lower Extremity Venous Report Patient Name: NALLELY MEJIA S : 1950 (74y 1m) Gender: M Study Date: 01/07/2025 01:07:40 PM Automotive Sales Specialist: Tracy Guzman RDMS,RVT Order Provider: SIMON GARCIA [...] Gender: M Study Date: 01/07/2025 01:07:40 PM Automotive Sales Specialist: Tracy Guzman RDMS,RVT Order Provider: SIMON GARCIA [...] 01/08/2025 11:50:35 AM CDT us Simon TAN [facility] US PROCEDURES Final Res ult * 48 HR Holter Monitor (12/20/2024 10:23 AM CDT) Anatomical Region Laterality Modality Electrocardiogra phy Narrative 12/26/2024 5:05 PM CDT AMBULATORY COURTESY BOOTH CASHIER REPORT Patient Name: Nallely Mejia Date of [...] was used to complete this document, therefore, lead neurodiagnostic technologist variances may occur. Sushant Madison MD, [facility] 12/26/24 Procedure Note Sushant Madison MD - 12/26/2024 AMBULATORY COURTESY BOOTH CASHIER REPORT Patient Name: Nallley Mejia Date of : 1950 Requesting Physician: [...] software was used to complete this document, therefore,lead neurodiagnostic technologist variances may occur. Sushant Madison MD, [facility] 12/26/24 us Corey Angel MD [facility] PROCEDURE S Final Result * (ABNORMAL) Total testosterone (11/22/2024 3:10 PM ARCHITECT MANAGER) Testosterone <3(L) 193 - 740 ng/dL Blood 11/22/2024 3:10 PM ARCHITECT MANAGER 11/22/2024 9:25 PM ARCHITECT MANAGER us Simon TAN LAB BLOOD ORDERABLES Final Result [facility]IL[facility] [address] Department [place] [address] * PSA diagnostic (11/22/2024 3:10 PM ARCHITECT MANAGER) PSA-Total <0.01 <=6.20 ng/mL Comment: Interpretive Data [...] last revised 22. Blood 11/22/2024 3:10 PM ARCHITECT MANAGER 11/22/2024 9:25 PM ARCHITECT MANAGER Simon TAN LAB BLOOD ORDERABLES Final Result [facility] [address] Department [place] [address] * eGFR (10/22/2024 1:51 PM ARCHITECT MANAGER) eGFR >90 >=60 mL/min/1. 73 m2 Comment: [...] last reviewed 2021. Blood 10/22/2024 1:51 PM ARCHITECT MANAGER 10/22/2024 7:49 PM ARCHITECT MANAGER us James Robert DO LAB BLOOD ORDERABLES Final R esult [facility] [address] Department [place] [address] * (ABNORMAL) Differential, auto (10/22/2024 1:51 PM ARCHITECT MANAGER) Neutrophil abs 3.5 1.5 - 6.5 K/cumm Imm gran abs 0.0 0.0 - 0.1 K/cumm [facility] Lymphocyte abs 0.3(L) 0.8 - 3.3 K/cumm [facility] Monocyte abs 1.1(H) 0.2 - 0.8 K/cumm [facility] Eosinophil abs 0.4 0.0 - 0.5 K/cumm [facility] Basophil abs 0.0 0.0 - 0.1 K/cumm [facility] Neutrophil pct 65.4 % [facility] Comment: Consistent with previous result Interpretive Data Percent cell count reference ranges are not reported, since discordance with absolute values may lead to misinterpretation of CBC data. Current Interpretive Data was last revised on 2018. Imm gran pct 0.4 % [facility] Comment: Interpretive Data Percent cell count reference ranges are not reported, since discordance with absolute values may lead to misinterpretation of CBC data. Current Interpretive Data was last revised on 2018. Lymphocyte pct 6.1 % [facility] Comment: Interpretive Data Percent cell count reference ranges are not reported, since discordance with absolute values may lead to misinterpretation of CBC data. Current Interpretive Data was last revised on 2018. Monocyte pct 20.3 % [facility] Comment: Interpretive Data Percent cell count reference ranges are not reported, since discordance with absolute values may lead to misinterpretation of CBC data. Current Interpretive Data was last revised on 2018. Eosinophil pct 7.0 % [facility] Comment: Interpretive Data Percent cell count reference ranges are not reported, since discordance with absolute values may lead to misinterpretation of CBC data. Current Interpretive Data was last revised on 2018. Basophil pct 0.8 % [facility] Comment: Interpretive Data Percent cell count reference ranges are not reported, since discordance with absolute values may lead to misinterpretation of CBC data. Current Interpretive Data was last revised on 2018. Blood 10/22/2024 1:51 PM ARCHITECT MANAGER 10/22/2024 7:31 PM ARCHITECT MANAGER James Salty Robert LAB BLOOD ORDERABLES Final R esult Performing Organization Address [facility]/ZIP Co de Phone Number SHIL[facility] [address] [employer] [place] [address] * (ABNORMAL) CBC with auto differential (10/22/2024 1:51 PM ARCHITECT MANAGER) Pathologist [facility] WBC 5.3 3.8 - 9.9 K/cumm Hgb 11.0(L) 13.0 - 17.5 g/dL [facility] Hct 35.2(L) 38.9 - 50.3 % [facility] Plt 191 150 - 400 K/cumm [facility] MPV 10.9 9.1 - 12.3 fL [facility] RBC 3.71(L) 4.30 - 5.80 M/cumm [facility] MCV 94.9 81.3 - 96.4 fL [facility] CH MCH 29.6 27.1 - 33.3 pg [facility] MCHC 31.3(L) 32.3 - 35.7 g/dL [facility] RDW CV 15.0(H) 11.1 - 14.9 % [facility] CH RDW SD 51.5(H) 35.7 - 48.1 fL [facility] NRBC abs 0.00 0.00 - 0.01 K/cumm [facility] Blood 10/22/2024 1:51 PM ARCHITECT MANAGER 10/22/2024 7:31 PM ARCHITECT MANAGER James Robert LAB BLOOD ORDERABLES Final R esult Performing Organization Address [facility]/ZIP Co de Phone Number [facility]IL[facility] [place] [address] [place] [address] * (ABNORMAL) Comprehensive metabolic panel (10/22/2024 1:51 PM ARCHITECT MANAGER) Sodium 142 135 - 145 mmol/L Potassium, [...] Units/L [facility] Blood 10/22/2024 1:51 PM ARCHITECT MANAGER 10/22/2024 7:31 PM ARCHITECT MANAGER us James Robert DO LAB BLOOD ORDERABLES Final R esult [facility] [address] Department [place] [address] from Last 3 Months Insurance FOR LIFE [employer] CHO[employer] MEDICARE PPO MEDICARE FOR LIFE FOR LIFE [employer] CHO[employer] MEDICARE PPO Care Teams Respite Coordinator Relationship Specialty Start Date End Date Corey Angel MD [address] INTERNAL MEDICINE [place], [place] [id number] PCP - General Internal Medicine 06/18/21 Nallely Thomson MD [address] [facility] [address] [place] [address] Referring Physician Urology 06/14/24 Harman Morales MD [facility] [address] [place] [address] Radiation Oncologist Radiation Oncology 06/22/24 James Robert DO [address] [facility] DIV IM MEDICAL ONCOLOGY, [address] [place] [address] Medical Oncologist/Risk Tech Hematology and Oncology 07/12/24
--- OUTSIDE RECORDS SUMMARY | 2025-01-18 11:19 | XMS_ITS ---
Author Organization [facility] Address [address] [place] [address] Care Team Providers Care Hand Trimmer Name Role Phone Corey Angel MD Primary Care Provider [phone] Clem Thomson MD Unavailable Harman Morales MD Unavailable [phone] James Robert DO Unavailable [phone] Active Problems Problem Noted Date Diagnosed Date Personal history of radiation therapy 11/15/2024 Prostate cancer 05/02/2024 Cancer Staging:Clinical stage from 06/28/2024:Stage IIIB(cT3b, cN0, cM0, PSA: 9.1, Grade Group: 2) - Signed by Harman Morales MD on 06/28/2024 Elevated PSA 12/19/2023 Ascending aortic aneurysm 06/19/2021 Squamous cell carcinoma of skin of left mormonism - Left 05/30/2018 Knee pain 04/22/2016 Current [...]
--- OUTSIDE RECORDS SUMMARY | 2025-01-18 11:19 | XMS_ITS | Clinical Summary ---
Author Organization [facility] Address [address] [place] [address] Care Team Providers Care Ornithology Teacher Name Role Phone Corey Angel MD Primary Care Provider [phone] Nallely Thomson MD Unavailable Harman Morales MD Unavailable [phone] James Robert DO Unavailable [phone] Allergies No known active allergies Medications esomeprazole [...] mL auto-injectorInd ications:Coronar y artery disease involving little traverse heart without angina pectoris, unspecified vessel or [...] mosque - Left 05/30/2018 Knee pain 04/22/2016 Encounters Date Type Department Care Team Description 01/09/2025 Telephone [facility] 8th [place] [address] [place] [address] Albino Yanez MD 01/08/2025 11:00 AM CDT Office Visit [facility] Floor 1, [address] [place] [phone] Albino Yanez MD Coronary artery disease involving little traverse heart without angina pectoris, unspecified vessel or lesion type (Primary Dx); Body mass index (BMI) of 39.0 to 39.9 in adult; High risk medication use; Essential hypertension 01/08/2025 Telephone [facility] Cardiology [address] [place] [address] 8th [place] [address] [place] [phone] Kim Sewell 01/08/2025 Documentation [facility] Floor 1, [address] [place] [phone] Sara Hendrix RN 01/07/2025 12:44 PM CDT - 01/07/2025 11:59 PM CDT Hospital Encounter [facility] Vascular Lab [address] [place] [address] Pain in right foot; Swelling of right foot Discharge Disposition: Discharge to home or self care 01/01/2025 Telephone [facility] Medical Office Building 2 Radiation Oncology [facility]8 [place] [address] Lucila Rodriguez 12/31/2024 Orders Only [facility] Medical Office Building 2 Radiation Oncology [facility] [place] [address] Simon Garcia, PA Pain in right foot (Primary Dx); Swelling of right foot 12/20/2024 10:30 AM CDT Ancillary Procedure [facility] Cardiology [address] [place] [address] Palpitations 12/06/2024 1:15 PM CDT Office Visit [facility] Physicians [facility] Oncology [address] [facility] [address] [place] [phone] James Robert DO Prostate cancer (HCC) (Primary Dx) 11/27/2024 1:30 PM MANAGER CASE MANAGEMENT Office Visit [facility] Medical Office Building 2 Radiation Oncology [address] [place] [address] Simon Garcia PA Prostate cancer (HCC) (Primary Dx); Personal history of radiation therapy 11/22/2024 3:10 PM MANAGER CASE MANAGEMENT - 11/22/2024 11:59 PM MANAGER CASE MANAGEMENT Hospital Encounter [address] [address] Prostate cancer (HCC) Discharge Disposition: Discharge to home or self care 11/22/2024 3:00 PM MANAGER CASE MANAGEMENT Lab [facility] Outpatient Lab at [address] [address] Prostate cancer (HCC) (Primary Dx) 11/19/2024 Telephone [facility] Cardiology [address] [place] [address] 8th [place] [address] [place] [address] Dana López 11/16/2024 Telephone [facility] Oncology [address] [place] [address] [address] [place] [phone] Sherin Armenta, BESS 11/06/2024 Telephone [facility] [address] [place] [address] Referral, Self Appointment Request 10/29/2024 Orders Only [facility] Medical Office Building 2 Radiation Oncology [address] [place] [address] Taya Cartagena, MICAH Prostate cancer (HCC) (Primary Dx) 10/22/2024 2:00 PM MANAGER CASE MANAGEMENT Lab [facility] Outpatient Lab at [address] [address] Prostate cancer (HCC) (Primary Dx) 10/22/2024 1:51 PM MANAGER CASE MANAGEMENT - 10/22/2024 11:59 PM MANAGER CASE MANAGEMENT Hospital Encounter [address] [address] Prostate cancer (HCC) Discharge Disposition: Discharge to home or self care from Last 3 Months Immunizations Immunization Administration [...] file Legal Sex Male 2:49 AM MANAGER CASE MANAGEMENT Gender Identity Male 05/22/2018 10:57 AM CDT Sexual Orientation Straight 11/03/2020 7: 01 PM MANAGER CASE MANAGEMENT Occupation Industry Job Start Date Job End Date working Not on file 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 [...] TOTAL TESTOSTERONE Routine 11/22/2024 3: 10 PM MANAGER CASE MANAGEMENT Prostate cancer (HCC) PSA DIAGNOSTIC Routine 11/22/2024 3:10 PM MANAGER CASE MANAGEMENT Prostate cancer (HCC) EGFR Routine 10/22/2024 1:51 PM MANAGER CASE MANAGEMENT Prostate cancer (HCC) DIFFERENTIAL AUTO Routine 10/22/2024 1:5 1 PM MANAGER CASE MANAGEMENT Prostate cancer (HCC) CBC WITH AUTO DIFFERENTIAL Routine 10/22/2024 1:51 PM MANAGER CASE MANAGEMENT Prostate cancer (HCC) COMPREHENSIVE METABOLIC PANEL Routine 10/22/2024 1:51 PM MANAGER CASE MANAGEMENT Prostate cancer (HCC) from Last 3 Months Results * US Vein Duplex Lower Extremity Right Limited, Unilateral (01/07/2025 1:27 PM CDT) Anatomical Region Laterality Modality Vascular Right Ultrasound 01/07/2025 1:07 PM CDT Narrative 01/08/2025 12:01 PM CDT Lower Extremity Venous Report Patient Name: NALLELY MEJIA S : 1950 (74y 1m) Gender: M Study Date: 01/07/2025 01:07:40 PM Net Web Application Developer: Tracy Guzman RDMS,RVT Order Provider: SIMON GARCIA [...] Gender: M Study Date: 01/07/2025 01:07:40 PM Net Web Application Developer: Tracy Guzman RDMS,RVT Order Provider: SIMON GARCIA [...] 01/08/2025 11:50:35 AM CDT us Simon TAN IMG US PROCEDURES Final Res ult * 48 HR Holter Monitor (12/20/2024 10:23 AM CDT) Anatomical Region Laterality Modality Electrocardiogra phy Narrative 12/26/2024 5:05 PM CDT AMBULATORY OPERATIONS MANAGER REPORT Patient Name: Nallely Mejia Date of [...] was used to complete this document, therefore, poiser variances may occur. Sushant Madison MD, [facility] 12/26/24 Procedure Note Sushant Madison MD - 12/26/2024 AMBULATORY OPERATIONS MANAGER REPORT Patient Name: Nallely Mejia Date of [...] software was used to complete this document, therefore,poiser variances may occur. Sushant Madison MD, [facility] 12/26/24 Corey Angel MD CV CARDIAC SERVICES PROCEDURE S Final Result * (ABNORMAL) Total testosterone (11/22/2024 3:10 PM MANAGER CASE MANAGEMENT) Pathologist [facility] Testosterone <3(L) 193 - 740 ng/dL Blood 11/22/2024 3:10 PM MANAGER CASE MANAGEMENT 11/22/2024 9:25 PM MANAGER CASE MANAGEMENT Simon TAN LAB BLOOD ORDERABLES Final Result [facility] [address] [facility] Department [place] [address] * PSA diagnostic (11/22/2024 3:10 PM MANAGER CASE MANAGEMENT) PSA-Total <0.01 <=6.20 ng/mL Comment: Interpretive Data [...] last revised 22. Blood 11/22/2024 3:10 PM MANAGER CASE MANAGEMENT 11/22/2024 9:25 PM MANAGER CASE MANAGEMENT Simon TAN LAB BLOOD ORDERABLES Final Result Performing Organization Address [facility] de Phone Number [facility] BR[place]TON [address] Department [place] [address] * eGFR (10/22/2024 1:51 PM MANAGER CASE MANAGEMENT) eGFR >90 >=60 mL/min/1. 73 m2 Comment: [...] last reviewed 2021. Blood 10/22/2024 1:51 PM MANAGER CASE MANAGEMENT 10/22/2024 7:49 PM MANAGER CASE MANAGEMENT James Robert DO LAB BLOOD ORDERABLES Final R esult Performing Organization Address [facility] Co de Phone Number SHILPA BRITTON [address] Department [place] [address] * (ABNORMAL) Differential, auto (10/22/2024 1:51 PM MANAGER CASE MANAGEMENT) Neutrophil abs 3.5 1.5 - 6.5 K/cumm Imm gran abs 0.0 0.0 - 0.1 K/cumm [facility] Lymphocyte abs 0.3(L) 0.8 - 3.3 K/cumm [facility] Monocyte abs 1.1(H) 0.2 - 0.8 K/cumm [facility] Eosinophil abs 0.4 0.0 - 0.5 K/cumm [facility] Basophil abs 0.0 0.0 - 0.1 K/cumm [facility] Neutrophil pct 65.4 % [facility] Comment: Consistent with previous result Interpretive Data Percent cell count reference ranges are not reported, since discordance with absolute values may lead to misinterpretation of CBC data. Current Interpretive Data was last revised on 2018. Imm gran pct 0.4 % [facility] Comment: Interpretive Data Percent cell count reference ranges are not reported, since discordance with absolute values may lead to misinterpretation of CBC data. Current Interpretive Data was last revised on 2018. Lymphocyte pct 6.1 % [facility] Comment: Interpretive Data Percent cell count reference ranges are not reported, since discordance with absolute values may lead to misinterpretation of CBC data. Current Interpretive Data was last revised on 2018. Monocyte pct 20.3 % [facility] Comment: Interpretive Data Percent cell count reference ranges are not reported, since discordance with absolute values may lead to misinterpretation of CBC data. Current Interpretive Data was last revised on 2018. Eosinophil pct 7.0 % [facility] Comment: Interpretive Data Percent cell count reference ranges are not reported, since discordance with absolute values may lead to misinterpretation of CBC data. Current Interpretive Data was last revised on 2018. Basophil pct 0.8 % [facility] Comment: Interpretive Data Percent cell count reference ranges are not reported, since discordance with absolute values may lead to misinterpretation of CBC data. Current Interpretive Data was last revised on 2018. Blood 10/22/2024 1:51 PM MANAGER CASE MANAGEMENT 10/22/2024 7:31 PM MANAGER CASE MANAGEMENT us James Robert DO LAB BLOOD ORDERABLES Final R esult [facility] [address] Department [place] [address] * (ABNORMAL) CBC with auto differential (10/22/2024 1:51 PM MANAGER CASE MANAGEMENT) [facility] WBC 5.3 3.8 - 9.9 K/cumm Hgb 11.0(L) 13.0 - 17.5 g/dL [facility] Hct 35.2(L) 38.9 - 50.3 % [facility] Plt 191 150 - 400 K/cumm [facility] MPV 10.9 9.1 - 12.3 fL [facility] RBC 3.71(L) 4.30 - 5.80 M/cumm [facility] MCV 94.9 81.3 - 96.4 fL [facility] MCH 29.6 27.1 - 33.3 pg [facility] MCHC 31.3(L) 32.3 - 35.7 g/dL [facility] RDW CV 15.0(H) 11.1 - 14.9 % [facility] RDW SD 51.5(H) 35.7 - 48.1 fL [facility] NRBC abs 0.00 0.00 - 0.01 K/cumm [facility] Blood 10/22/2024 1:51 PM MANAGER CASE MANAGEMENT 10/22/2024 7:31 PM MANAGER CASE MANAGEMENT us James Robert DO LAB BLOOD ORDERABLES Final R esult [facility] [address] Department [place] [address] * (ABNORMAL) Comprehensive metabolic panel (10/22/2024 1:51 PM MANAGER CASE MANAGEMENT) [facility] Sodium 142 135 - 145 mmol/L Potassium, pl 3.9 3.3 - 4.9 mmol/L [facility] Chloride 104 97 - 110 mmol/L [facility] CO2 26 22 - 32 mmol/L [facility] Anion gap 12 2 - 15 mmol/L [facility] BUN 10 6 - 25 mg/dL [facility] Creatinine 0.70(L) 0.80 - 1.30 mg/dL [facility] Glucose 91 70 - 199 mg/dL [facility] Comment: Interpretive Data Fasting glucose >/= 126 [...] Units/L [facility] Blood 10/22/2024 1:51 PM MANAGER CASE MANAGEMENT 10/22/2024 7:31 PM MANAGER CASE MANAGEMENT us James Robert DO LAB BLOOD ORDERABLES Final R esult [facility] [address] Department [place] [address] from Last 3 Months Insurance e[employer]eral HUMANA CHOICE MEDICARE PPO MEDICARE FOR LIFE FOR LIFE HUMANA CHOICE MEDICARE PPO Care Teams Ornithology Teacher Relationship Specialty Start Date End Date Corey Angel MD [address] [place] [address] PCP - General Internal Medicine 06/18/21 Nallely Thomson MD [address] [place] [address] Referring Physician Urology 06/14/24 Harman Morales MD [address] [place] [address] [address] [place] [address] Radiation Oncologist Radiation Oncology 06/22/24 James Robert DO [address] [place] [address] MEDICAL ONCOLOGY, [facility] [address] [place] [address] Medical Oncologist/Tour Driver Hematology and Oncology 07/12/24
--- OUTSIDE RECORDS SUMMARY | 2025-01-18 11:19 | XMS_ITS | Continuity of Care Document ---
Author Name [facility] Organization [facility] Care Team Providers Care Securities Settlement Processor Name Role Phone [facility] Unavailable Unavailable Medications Combined list of outpatient [...] 'S LAB, 120 ea. BOTTLE Cancele d [id number] 4 [id number] : 2023 0 Pharmac y Data Transac tion Service Facilit y ICOSAPENT ETHYL (icosapent ethyl), 1 G, CAPSULE, ORAL, 'S LAB, 120 ea. BOTTLE Cancele d [id number] 4 [id number] : 2023 0 Pharmac y Data Transac tion Service Facilit y LORAZEPAM (lorazepam) , 0.5 MG, TABLET, ORAL, AUROBINDO PHARM, 500 ea. BOTTLE Active [id number] 2023 45 Pharmac y Data Transac tion Service Facilit y LORAZEPAM (lorazepam) , 0.5 MG, TABLET, ORAL, AUROBINDO PHARM, 500 ea. BOTTLE Active [id number] 4 2023 45 Pharmac y Data Transac tion Service Facilit y METOPROLOL SUCCINATE (metoprolol succinate), 25 MG, TAB ER 24H, ORAL, ACTAVIS/TEV A, 100 ea. BOTTLE Active [id number] 4 2023 45 Pharmac y Data Transac tion Service Facilit y ROSUVASTATI N CALCIUM (rosuvastat in calcium), 40 MG, TABLET, ORAL, CAMBER PHARMACE, 30 ea. BOTTLE Active [id number] 4 2023 90 Pharmac y Data Transac tion Service Facilit y Immunizations Combined list of available immunizations from the Department of Defense and Veterans Affairs facilities. Immunization Series Date Given Administered By Site Reaction Lot Number CVX Code Drug Senior Manufacturing Test Engineer Status Comments Source COVID-19, mRNA, LNP-S, PF, 30 mcg/0.3 mL dose 2020 [employer] [place] (PFR) Not Given COVID-19, mRNA, LNP-S, [...] 1 2005 Unknown, Provider [id number] 15 [facility] ([facility]) complet ed influenza virus vaccine, split virus (incl. purified surface antigen)- retired CODE DoD influenza virus vaccine, split virus (incl. purified surface antigen)-reti red CODE 1 2004 Unknown, Provider [id number] Sanofi Pasteur ([facility]) complet ed influenza virus vaccine, split virus (incl. purified surface antigen)- retired CODE DoD typhoid vaccine, parenteral, other than acetone-kille d, dried 1 2004 Unknown, Provider [id number] Sanofi Pasteur ([facility]) complet ed typhoid vaccine, parentera l, other than acetone-k illed, dried DoD hepatitis A vaccine, adult dosage 1 2004 Unknown, Provider [id number] 52 [facility] ([facility] complet ed hepatitis A vaccine, adult dosage DoD influenza virus vaccine, whole virus 1 1998 Unknown, Provider [id number] 16 [facility] complet ed influenza virus vaccine, whole virus [employer] tuberculin skin test; purified protein derivative solution, intradermal 1 1997 Unknown, Provider 96 Transcribed (TRS) complet ed tuberculi n skin test; purified protein derivativ e solution, intraderm al DoD Procedures Combined list of: 1) Procedures from Department of Veterans Affairs facilities going back up to thelast 18 months, not all [place] non-surgical procedures are included; 2) All procedures from the Department of Defense facilities. Procedure Procedure Type Code Date Perfomer Comments Brianna nery EXCISION OF HEMORRHOIDS 09/13/1993 [employer] Social History Combined list of available smoking, tobacco, and other social history from Department of Defense and Veterans Affairs facilities. Social History Type Response Date Comment Karen gabriel This section is an empty social history section. DoD
--- OUTSIDE RECORDS SUMMARY | 2025-01-18 11:19 | XMS_ITS | Encounter Summary ---
Author Organization [facility] Address Replaced by [facility] [place] [address] Care Team Providers Care Manager Education Name Role Phone Corey Angel MD Primary Care Provider [phone] Encounter Details Date Type Department Care Team (Late st Contact Info) Description 12/14/2022 [facility] Message Enc [facility] [address] [address] Mychart, [facility] Provider Stress test Social History Tobacco [...] on filedocumented in this encounter Care Teams Manager Education Relationship Specialty Start Date End Date Corey Angel MD [address] [place] [address] PCP - General INTERNAL MEDICINE 02/25/21 documented as of this encounter
--- OUTSIDE RECORDS SUMMARY | 2025-01-18 11:19 | XMS_ITS | Encounter Summary ---
Author Organization [facility] Address [facility] [place] [address] Care Team Providers Care Woods Warden Name Role Phone Corey Angel MD Primary Care Provider [phone] Encounter Details Date Type Department Care Team (Latest Contact Info) Description 01/18/2024 [employer] Message [facility]-[address] [address] Diego Muse MD [address] [place] [address] [address] [place] [phone] Heart Monitor Status Social History Tobacco Use [...] on filedocumented in this encounter Care Teams Woods Warden Relationship Specialty Start Date End Date Corey Angel MD [address] [place] [address] PCP - General INTERNAL MEDICINE 02/25/21 documented as of this encounter
--- OUTSIDE RECORDS SUMMARY | 2025-01-18 11:19 | XMS_ITS | Clinical Summary ---
Author Organization [facility] Address [address] [address] Phone Care Team Providers Care Law Office Receptionist Name Role Phone Corey Angel MD Primary Care Provider [phone] Uzair Dye DO Unavailable [phone] Allergies No known active allergies Medications [...] Comments Blood Pressure 120/90 10/12/2016 12:23 PM MANAGER ESTATE Pulse 79 10/12/2016 12:23 PM MANAGER ESTATE Temperature 36.1 C (96.9 F) 10/12/2016 12:23 PM MANAGER ESTATE Respiratory Rate 14 10/12/2016 12:23 PM MANAGER ESTATE Oxygen Saturation 94% 10/12/2016 12:23 PM MANAGER ESTATE Inhaled Oxygen Concentration - - Weight 117.5 kg (259 lb) 10/12/2016 12:23 PM MANAGER ESTATE Height 177.8 cm (5' 10 ) 10/12/2016 12:23 PM MANAGER ESTATE Body Mass Index 37.16 10/12/2016 12:23 PM MANAGER ESTATE Plan of Treatment Health Maintenance Due Date [...] Recently Relevant to Health Maintenance Insurance MEDICARE [employer] Care Teams Law Office Receptionist Relationship Specialty Start Date End Date Corey Angel MD PCP - General Internal Medicine 03/31/16 Uzair Dye DO Gastroenterology 03/31/16
--- OUTSIDE RECORDS SUMMARY | 2025-01-18 11:19 | XMS_ITS | Clinical Summary ---
Author Organization [facility] Address [address] [place] [address] Care Team Providers Care Care Mgr Name Role Phone Corey Angel MD Primary Care Provider [phone] Allergies No known active allergies Medications rosuvastatin [...] cell carcinoma of skin of left mormonism 0 05/30/2018 Knee pain 04/22/2016 Resolved Problems [...] this topic Insurance HUMANA HUMANA Care Teams Care Mgr Relationship Specialty Start Date End Date Corey Angel MD [address] [place] [phone] PCP - General INTERNAL MEDICINE 02/25/21
== END 2025-01-18 10:57 | disposition home or self-care (01) ==
LOC: ANHIMG 10:57
PROVIDERS: PCP Internal Medicine; Visit Provider Internal Medicine
DX: R93.89 Abnormal findings on diagnostic imaging of other specified body structures (principal); R07.81 Pleurodynia
CPT/HCPCS: 71101

== ENCOUNTER 2025-01-29 22:58 | Inpatient (IN) | payer MEDICARE, OTHER, SELFPAY ==
--- NOTE | ~2025-01-29 | XR_ITS ---
AP and lateral views of the right tibia/fibula Clinical History: Injury, swelling Findings: No acute fracture or dislocation is seen. Osseous alignment is anatomic. Joint spaces are p reserved without significant erosive or degenerative change. There is subcutaneous soft tissue edema. Impression: Mild subcutaneous soft tissue edema, nonspecific. No fracture or dislocation. Reviewed, dictated and finalized at [facility]. Impression: Mild subcutaneous soft tissue edema, nonspecific. No fracture or dislocation.
--- NOTE | ~2025-01-29 | US_ITS ---
EXAMINATION:US venous doppler LE RT INDICATION:Right leg pain and swelling. Redness. TECHNIQUE: Multiple grayscale, color flow and Doppler images of the right lower extremity deep venous systems were obtained and reviewed. COMPARISON:No prior studies for comparison. FINDINGS: The common femoral, superficial femoral and popliteal veins demonstrate normal respiratory variation, augmentation and compressibility. Color flow is also seen within the posterior tibial, pe roneal, greater saphenous and profunda veins. IMPRESSION: 1: No lower extremity deep venous thrombosis. Reviewed, dictated and finalized at location A.
--- NOTE | ~2025-01-29 | XR_ITS ---
Right Knee Technique: AP, lateral, and oblique views were obtained. Clinical History: Injury, diffusion Findings: No fracture or dislocation is seen. Osseous alignment is anatomic. Joint spaces are preserv ed without degenerative or erosive change. There is prepatellar soft tissue edema/thickening. No join t effusion is seen. Impression: Prepatellar soft tissue edema/thickening. Correlate for bursitis or posttraumatic change. Reviewed, dictated and finalized at location . Impression: Prepatellar soft tissue edema/thickening. Correlate for bursitis or posttraumat ic change.
--- OUTSIDE RECORDS SUMMARY | 2025-01-29 23:01 | XMS_ITS | Encounter Summary ---
Author Organization [facility] Address [facility] [place] [address] Care Team Providers Care Neurology Tech Name Role Phone Corey Angel MD Primary Care Provider [phone] Encounter Details Date Type Department Care Team (Late st Contact Info) Description 12/14/2022 [employer] Message Enc [facility] [address] [address] Mychart, [facility] Provider Stress test Social History Tobacco [...] on filedocumented in this encounter Care Teams Neurology Tech Relationship Specialty Start Date End Date Corey Angel MD [address] [place] [address] PCP - General INTERNAL MEDICINE 02/25/21 documented as of this encounter
--- OUTSIDE RECORDS SUMMARY | 2025-01-29 23:01 | XMS_ITS | Referral Summary ---
Author Organization [facility] Address [address] [place] [address] Care Team Providers Care Automatic Brine Mixer Operator Name Role Phone Corey Angel MD Primary Care Provider Nallely Thomson MD Unavailable Harman Morales MD Unavailable [phone] James Robert DO Unavailable [phone] Encounters Date Type Department Care Team Description 01/28/2025 Orders Only [facility] Medical Office Building 2 Radiation Oncology [address] [place] [address] Simon Garcia PA Prostate cancer (HCC) (Primary Dx) 01/09/2025 Telephone [facility] Cardiology [address] [facility] 8th [place] [address] [place] [phone] Albino Yanez MD 01/08/2025 Telephone [facility] Cardiology [address] [facility] 8th [place] [address] [place] [phone] Kim Sewell 01/08/2025 Documentation [facility] Cardiology [address] [facility] Floor 1, [address] [place] [address] Sara Hendrix RN 01/08/2025 11:00 AM CDT Office Visit [facility] Cardiology [facility] Floor 1, [address] [place] [address] Albino Yanez MD 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, unspecified vessel or lesion type (Primary Dx); Body mass index (BMI) of 39.0 to 39.9 in adult; High risk medication use; Essential hypertension 01/07/2025 12:44 PM CDT - 01/07/2025 11:59 PM CDT Hospital Encounter [facility] Vascular Lab [address] [place] [address] Pain in right foot; Swelling of right foot Discharge Disposition: Discharge to home or self care 01/01/2025 Telephone [facility] Medical Office Building 2 Radiation Oncology [address] [place] [address] Lucila Rodriguez 12/31/2024 Orders Only [facility] Medical Office Building 2 Radiation Oncology [address] [place] [address] Simon Garcia PA Pain in right foot (Primary Dx); Swelling of right foot 12/20/2024 10:30 AM CDT Ancillary Procedure [facility] Cardiology [address] [facility] [address] [place] [address] Palpitations 12/06/2024 1:15 PM CDT Office Visit [facility] Oncology [address] [facility] [address] [place] [address] James Robert DO Prostate cancer (HCC) (Primary Dx) 11/27/2024 1:30 PM FOOT DRILL OPERATOR Office Visit [facility] Medical Office Building 2 Radiation Oncology [address] [place] [address] Simon Garcia PA Prostate cancer (HCC) (Primary Dx); Personal history of radiation therapy 11/22/2024 3:10 PM FOOT DRILL OPERATOR - 11/22/2024 11:59 PM FOOT DRILL OPERATOR Hospital Encounter [address] [address] Prostate cancer (HCC) Discharge Disposition: Discharge to home or self care 11/22/2024 3:00 PM FOOT DRILL OPERATOR Lab [facility] Outpatient Lab at [address] [phone] Prostate cancer (HCC) (Primary Dx) 11/19/2024 Telephone [facility] Cardiology [address] [facility] Medicine 8th [place] [address] [place] [address] Dana López 11/16/2024 Telephone [facility] Physicians [facility] Oncology [address] [facility] [address] [place] [address] Sherin Armenta CMA 11/06/2024 Telephone [place] [address] [place] [address] Referral, Self Appointment Request from Last 3 Months Allergies No known [...] mL auto-injectorInd ications:Coronar y artery disease involving chippewa-cree heart without angina pectoris, unspecified vessel or lesion type,Body mass index (BMI) of 39.0 to 39.9 in adult,High risk medication use Inject 0.25 mg under the skin every 7 days Plan to increase dose after 1-2 months 2 mL 1 01/09/20 Active telmisartan (MICARDIS) 20 mg tabletIndication s:Essential [...] 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 05/30/2018 Knee pain 04/22/2016 Immunizations [...] on file Legal Sex Male 2:49 AM FOOT DRILL OPERATOR Gender Identity Male 05/22/2018 10:57 AM CDT Sexual Orientation Straight 11/03/2020 7: 01 PM FOOT DRILL OPERATOR Occupation Industry Job Start Date Job End Date working Not on file 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 Not on file [...] TOTAL TESTOSTERONE Routine 11/22/2024 3: 10 PM FOOT DRILL OPERATOR Prostate cancer (HCC) PSA DIAGNOSTIC Routine 11/22/2024 3:10 PM FOOT DRILL OPERATOR Prostate cancer (HCC) from Last 3 Months Results * US Vein Duplex Lower Extremity Right Limited, Unilateral (01/07/2025 1:27 PM CDT) Anatomical Region Laterality Modality Vascular Right Ultrasound 01/07/2025 1:07 PM CDT Narrative 01/08/2025 12:01 PM CDT Lower Extremity Venous Report Patient Name: NALLELY MEJIA S : 1950 (74y 1m) Gender: M Study Date: 01/07/2025 01:07:40 PM Band Tacker: Tracy Guzman RDMS,RVT Order Provider: SIMON GARCIA [...] Gender: M Study Date: 01/07/2025 01:07:40 PM Band Tacker: Tracy Guzman RDMS,RVT Order Provider: SIMON GARCIA [...] phy Narrative 12/26/2024 5:05 PM CDT AMBULATORY CARPENTER LABOR SUPERVISOR REPORT Patient Name: Nallely Mejia Date of [...] was used to complete this document, therefore, alley worker variances may occur. Sushant Madison MD, [facility] 12/26/24 Procedure Note Sushant Madison MD - 12/26/2024 AMBULATORY CARPENTER LABOR SUPERVISOR REPORT Patient Name: Nallely Mejia Date of [...] software was used to complete this document, therefore,alley worker variances may occur. Sushant Madison MD, [facility] 12/26/24 Corey Angel MD CV CARDIAC SERVICES PROCEDURE S Final Result * (ABNORMAL) Total testosterone (11/22/2024 3:10 PM FOOT DRILL OPERATOR) Testosterone <3(L) 193 - 740 ng/dL Blood 11/22/2024 3:10 PM FOOT DRILL OPERATOR 11/22/2024 9:25 PM FOOT DRILL OPERATOR Simon TAN LAB BLOOD ORDERABLES Final Result Performing Organization Address [facility] de Phone Number SHILPA [address] [place] [address] * PSA diagnostic (11/22/2024 3:10 PM FOOT DRILL OPERATOR) PSA-Total <0.01 <=6.20 ng/mL Comment: Interpretive Data [...] last revised 22. Blood 11/22/2024 3:10 PM FOOT DRILL OPERATOR 11/22/2024 9:25 PM FOOT DRILL OPERATOR Simon TAN LAB BLOOD ORDERABLES Final Result Performing Organization Address [facility] [place] Number [place] [address] [place] [address] from Last 3 Months Insurance FOR LIFE HUMANA CHOICE MEDICARE PPO MEDICARE FOR LIFE [employer] FOR LIFE HUMANA CHOICE MEDICARE PPO [place] [id number] Care Teams Automatic Brine Mixer Operator Relationship Specialty Start Date End Date Corey Angel MD [address] [facility] [address] [place] [address] PCP - General Internal Medicine 06/18/21 Nallely Thomson MD [address] [place] [address] Referring Physician Urology 06/14/24 Harman Morales MD [address] [place] [address] [address] [place] [address] Radiation Oncologist Radiation Oncology 06/22/24 James Robert DO [address] [place] [address] MEDICAL ONCOLOGY, [facility] [address] [place] [address] Medical Oncologist/Dialysis Tech Hematology and Oncology 07/12/24
--- OUTSIDE RECORDS SUMMARY | 2025-01-29 23:01 | XMS_ITS | Clinical Summary ---
Author Organization [facility] Address [address] [place] [address] Care Team Providers Care Resource Efficiency Manager Name Role Phone Corey Angel MD Primary Care Provider [phone] Nallely Thomson MD Unavailable Harman Morales MD Unavailable [phone] James Robert DO Unavailable [phone] Allergies No known active allergies Medications esomeprazole [...] mL auto-injectorInd ications:Coronar y artery disease involving [place] valley heart without angina pectoris, unspecified vessel or [...] Squamous cell carcinoma of skin of left baptist - Left 05/30/2018 Knee pain 04/22/2016 Encounters Date Type Department Care Team Description 01/28/2025 Orders Only [facility] Medical Office Building 2 Radiation Oncology [address] [place] [address] Simon Garcia PA Prostate cancer (HCC) (Primary Dx) 01/09/2025 Telephone [facility] Cardiology [address] [place] [address] 8th [place] [address] [place] [address] Albino Yanez MD 01/08/2025 11:00 AM CDT Office Visit [facility] Cardiology [facility]0 [facility] Floor 1, [address] [place] [address] Albino Yanez MD Coronary artery disease involving [place]ter valley heart without angina pectoris, unspecified vessel or lesion type (Primary Dx); Body mass index (BMI) of 39.0 to 39.9 in adult; High risk medication use; Essential hypertension 01/08/2025 Telephone [facility] Cardiology [address] [place] [address] 8th [place] [address] [place] [address] Kristel Sewellelle 01/08/2025 Documentation [facility] Cardiology [facility] Floor 1, [address] [place] [address] Sara Hendrix RN 01/07/2025 12:44 PM CDT - 01/07/2025 11:59 PM CDT Hospital Encounter [facility] Vascular Lab [address] [place] [address] Pain in right foot; Swelling of right foot Discharge Disposition: Discharge to home or self care 01/01/2025 Telephone [facility] Medical Office Building 2 Radiation Oncology [address] [place] [address] Lucila Rodriguez 12/31/2024 Orders Only [facility] Medical Office Building 2 Radiation Oncology [address] [place] [address] Simon Garcia PA Pain in right foot (Primary Dx); Swelling of right foot 12/20/2024 10:30 AM CDT Ancillary Procedure [facility] Cardiology [address] [place] [address] Palpitations 12/06/2024 1:15 PM CDT Office Visit [facility] Physicians [facility] Oncology [address] [place] [address] [address] [place] [phone] James Robert DO Prostate cancer (HCC) (Primary Dx) 11/27/2024 1:30 PM ASSEMBLING FABRICATOR Office Visit [facility] Medical Office Building 2 Radiation Oncology [address] [place] [address] Simon Garcia PA Prostate cancer (HCC) (Primary Dx); Personal history of radiation therapy 11/22/2024 3:10 PM ASSEMBLING FABRICATOR - 11/22/2024 11:59 PM ASSEMBLING FABRICATOR Hospital Encounter [facility] [address] [place] [address] Prostate cancer (HCC) Discharge Disposition: Discharge to home or self care 11/22/2024 3:00 PM ASSEMBLING FABRICATOR Lab [facility] Outpatient Lab at [address] [phone] Prostate cancer (HCC) (Primary Dx) 11/19/2024 Telephone [facility] Cardiology [address] [facility] Medicine 8th [place] [address] [place] [address] Dana López 11/16/2024 Telephone [facility] Oncology [facility]8 [facility] [address] [place] [address] Sherin Armenta, BESS 11/06/2024 Telephone [place] [address] [place] [address] Referral, Self Appointment Request from Last 3 Months Immunizations Immunization Administration [...] on file Legal Sex Male 2:49 AM ASSEMBLING FABRICATOR Gender Identity Male 05/22/2018 10:57 AM CDT Sexual Orientation Straight 11/03/2020 7: 01 PM ASSEMBLING FABRICATOR Occupation Industry Job Start Date Job End Date working Not on file 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 on file [...] TOTAL TESTOSTERONE Routine 11/22/2024 3: 10 PM ASSEMBLING FABRICATOR Prostate cancer (HCC) PSA DIAGNOSTIC Routine 11/22/2024 3:10 PM ASSEMBLING FABRICATOR Prostate cancer (HCC) from Last 3 Months Results * US Vein Duplex Lower Extremity Right Limited, Unilateral (01/07/2025 1:27 PM CDT) Anatomical Region Laterality Modality Vascular Right Ultrasound 01/07/2025 1:07 PM CDT Narrative 01/08/2025 12:01 PM CDT Lower Extremity Venous Report Patient Name: NALLELY MEJIA S : 1950 (74y 1m) Gender: M Study Date: 01/07/2025 01:07:40 PM Manager Motor: Tracy Guzman RDMS,RVT Order Provider: SIMON GARCIA [...] Gender: M Study Date: 01/07/2025 01:07:40 PM Manager Motor: Tracy Guzman RDMS,RVT Order Provider: SIMON GARCIA [...] MD 01/08/2025 11:50:35 AM CDT Simon TAN IM US PROCEDURES Final Res ult * 48 HR Holter Monitor (12/20/2024 10:23 AM CDT) Anatomical Region Laterality Modality Electrocardiogra phy Narrative 12/26/2024 5:05 PM CDT AMBULATORY STUDENT EDUCATION SPECIALIST REPORT Patient Name: Nallely Mejia Date [...] was used to complete this document, therefore, manager roofing variances may occur. Sushant Madison MD, [facility] 12/26/24 Procedure Note Sushant Madison MD - 12/26/2024 AMBULATORY STUDENT EDUCATION SPECIALIST REPORT Patient Name: Nallely Mejia Date [...] software was used to complete this document, therefore,manager roofing variances may occur. Sushant Madison MD, [facility] 12/26/24 us Corey Angel MD CV CARDIAC SERVICES PROCEDURE S Final Result * (ABNORMAL) Total testosterone (11/22/2024 3:10 PM ASSEMBLING FABRICATOR) Testosterone <3(L) 193 - 740 ng/dL Blood 11/22/2024 3:10 PM ASSEMBLING FABRICATOR 11/22/2024 9:25 PM ASSEMBLING FABRICATOR Simon TAN LAB BLOOD ORDERABLES Final Result Performing Organization Address [facility] Phone Number SHILPA [place] [address] [address] Department [place] [address] * PSA diagnostic (11/22/2024 3:10 PM ASSEMBLING FABRICATOR) PSA-Total <0.01 <=6.20 ng/mL Comment: Interpretive Data [...] last revised 22. Blood 11/22/2024 3:10 PM ASSEMBLING FABRICATOR 11/22/2024 9:25 PM ASSEMBLING FABRICATOR Simon TAN LAB BLOOD ORDERABLES Final Result Performing Organization Address [facility] Phone Number SHILPA [address] [address] Department [place] [address] from Last 3 Months Insurance [employer] HUMANA CHOICE MEDICARE PPO MEDICARE FOR LIFE FOR LIFE HUMANA CHOICE MEDICARE PPO Care Teams Resource Efficiency Manager Relationship Specialty Start Date End Date Corey Angel MD [address] [facility] [address] [place] [address] PCP - General Internal Medicine 06/18/21 Nallely Thomson MD [address] [place] [address] Referring Physician Urology 06/14/24 Harman Morales MD [address] [place] [address] 160 [place] [address] Radiation Oncologist Radiation Oncology 06/22/24 James Robert DO [address] [place] [address] MEDICAL ONCOLOGY, [place] [address] [place] [address] Medical Oncologist/Ornamental Ironworker Helper Hematology and Oncology 07/12/24
--- OUTSIDE RECORDS SUMMARY | 2025-01-29 23:01 | XMS_ITS | Encounter Summary ---
Author Organization [facility] Address [facility] [place] [address] Care Team Providers Care Calendering Supervisor Name Role Phone Corey Angel MD Primary Care Provider [phone] Encounter Details Date Type Department Care Team (Latest Contact Info) Description 01/18/2024 MiracleCordt Message [facility] Cardiovascular Outreach Clinic-[address] [address] Diego Muse MD [address] [place] [address] [place] [address] [place] [phone] Heart Monitor Status Social History Tobacco Use [...] on filedocumented in this encounter Care Teams Calendering Supervisor Relationship Specialty Start Date End Date Corey Angel MD [address] [place] [address] PCP - General INTERNAL MEDICINE 02/25/21 documented as of this encounter
--- OUTSIDE RECORDS SUMMARY | 2025-01-29 23:01 | XMS_ITS | Continuity of Care Document ---
Author Name [facility] Organization [facility] Care Team Providers Care Site Foreman Name Role Phone [facility] Unavailable Unavailable Medications Combined list of outpatient [...] 'S LAB, 120 ea. BOTTLE Cancele d [id number] : 2023 0 Pharmac y Data Transac tion Service Facilit y ICOSAPENT ETHYL (icosapent ethyl), 1 G, CAPSULE, ORAL, 'S LAB, 120 ea. BOTTLE Cancele d [id number] 4 [id number] : 2023 0 Pharmac y Data Transac tion Service Facilit y LORAZEPAM (lorazepam) , 0.5 MG, TABLET, ORAL, AUROBINDO PHARM, 500 ea. BOTTLE Active [id number] 4 2023 45 Pharmac y Data Transac tion Service Facilit y LORAZEPAM (lorazepam) , 0.5 MG, TABLET, ORAL, AUROBINDO PHARM, 500 ea. BOTTLE Active [id number] 4 2023 45 Pharmac y Data Transac tion Service Facilit y METOPROLOL SUCCINATE (metoprolol succinate), 25 MG, TAB ER 24H, ORAL, ACTAVIS/TEV A, 100 ea. BOTTLE Active [id number] 4 2023 45 Pharmac y Data Transac tion Service Facilit y ROSUVASTATI N CALCIUM (rosuvastat in calcium), 40 MG, TABLET, ORAL, CAMBER PHARMACE, 30 ea. BOTTLE Active [id number] 4 2023 90 Pharmac y Data Transac tion Service Facilit y Immunizations Combined list of available immunizations from the Department of Defense and Veterans Affairs facilities. Immunization Series Date Given Administered By Site Reaction Lot Number CVX Code Drug Actuarial Manager Status Comments Source COVID-19, mRNA, LNP-S, PF, 30 mcg/0.3 mL dose 2020 [employer] [place] (PFR) Not Given COVID-19, mRNA, LNP-S, [...] 1 2005 Unknown, Provider [id number] [facility] (SKB) complet ed influenza virus vaccine, split virus (incl. purified surface antigen)- retired CODE DoD influenza virus vaccine, split virus (incl. purified surface antigen)-reti red CODE 1 2004 Unknown, Provider [id number] 15 Sanofi Pasteur ([facility]) complet ed influenza virus vaccine, split virus (incl. purified surface antigen)- retired CODE DoD typhoid vaccine, parenteral, other than acetone-kille d, dried 1 2004 Unknown, Provider [id number] Sanofi Pasteur ([facility]) complet ed typhoid vaccine, parentera l, other than acetone-k illed, dried DoD hepatitis A vaccine, adult dosage 1 2004 Unknown, Provider [id number] 52 [facility] ([facility]) complet ed hepatitis A vaccine, adult dosage DoD influenza virus vaccine, whole virus 1 1998 Unknown, Provider [id number] 16 [facility] ([facility]) complet ed influenza virus vaccine, whole virus [facility] tuberculin skin test; purified protein derivative solution, intradermal 1 1997 Unknown, Provider 96 Transcribed (TRS) complet ed tuberculi n skin test; purified protein derivativ e solution, intraderm al DoD Procedures Combined list of: 1) Procedures from Department of Veterans Affairs facilities going back up to thelast 18 months, not all ID non-surgical procedures are included; 2) All procedures from the Department of Defense facilities. Procedure Procedure Type Code Date Perfomer Comments Brianna nery EXCISION OF HEMORRHOIDS 09/13/1993 [facility] Social History Combined list of available smoking, tobacco, and other social history from Department of Defense and Veterans Affairs facilities. Social History Type Response Date Comment Karen gabriel This section is an empty social history section. DoD
--- OUTSIDE RECORDS SUMMARY | 2025-01-29 23:01 | XMS_ITS | Encounter Summary ---
Author Organization [facility] Healthcare Address [address] [place] [address] Care Team Providers Care Earth Moving Machine Operator Name Role Phone Corey Angel MD Primary Care Provider [phone] Clem Thomson MD Unavailable Harman Morales MD Unavailable [phone] James Robert DO Unavailable [phone] Encounter Details Date Type Department Care Team (Late st Contact Info) Description 01/28/2025 Orders Only [facility] Medical Office Building 2 Radiation Oncology [address] [place] [address] Yanci Garcia, PA [address] [place] [address] Prostate cancer (HCC) (Primary Dx) Social History [...] file Legal Sex Male 2:49 AM FIELD COIL WINDER Gender Identity Male 05/22/2018 10:57 AM CDT Sexual Orientation Straight 11/03/2020 7: 01 PM FIELD COIL WINDER Occupation Industry Job Start Date Job End Date working Not on file 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 Not on file Not o n file documented as of this encounter Plan of Treatment Scheduled Orders Name Type Priority Associated Diagnoses Orde r Schedule PSA diagnostic Lab Routine Prostate cancer (HCC) Expected: 02/04/2025 (Approximate), Expires: 01/28/2026 Total testosterone Lab Routine Prostate cancer (HCC) Expected: 02/04/2025 (Approximate), Expires: 01/28/2026 documented as of this encounter Visit Diagnoses Diagnosis Prostate cancer (HCC)- Primary Malignant neoplasm of prostate documented in this encounter Care Teams Earth Moving Machine Operator Relationship Specialty Start Date End Date Corey Angel MD [address] [facility] [address] [place] [address] PCP - General Internal Medicine 06/18/21 Clem Thomson MD [address] [place] [address] Referring Physician Urology 06/14/24 Harman Morales MD [address] [place] [address] 160 [place] [address] Radiation Oncologist Radiation Oncology 06/22/24 James Robert DO [address] [place] [address] MEDICAL ONCOLOGY, [facility] [address] [place] [address] Medical Oncologist/Shaping Machine Tender Hematology and Oncology 07/12/24 documented as of this encounter
--- OUTSIDE RECORDS SUMMARY | 2025-01-29 23:01 | XMS_ITS ---
Author Organization [facility] Address [address] [place] [address] Care Team Providers Care Drafter Cartographic Name Role Phone Corey Angel MD Primary Care Provider [phone] Clem Thomson MD Unavailable Harman Morales MD Unavailable [phone] James Robert DO Unavailable [phone] Active Problems Problem Noted Date Diagnosed Date Personal history of radiation therapy 11/15/2024 Prostate cancer 05/02/2024 Cancer Staging:Clinical stage from 06/28/2024:Stage IIIB(cT3b, cN0, cM0, PSA: 9.1, Grade Group: 2) - Signed by Harman Morales MD on 06/28/2024 Elevated PSA 12/19/2023 Ascending aortic aneurysm 06/19/2021 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
--- OUTSIDE RECORDS SUMMARY | 2025-01-29 23:01 | XMS_ITS | Clinical Summary ---
Author Organization [facility] Address [address] [address] Phone Care Team Providers Care [employer]dnance [employer] Officer Name Role Phone Corey Angel MD Primary Care Provider [phone] Uzair Dye DO Unavailable [phone] Allergies No known active allergies Medications esomeprazole [...] Comments Blood Pressure 120/90 10/12/2016 12:23 PM MESS ATTENDANT CREW Pulse 79 10/12/2016 12:23 PM MESS ATTENDANT CREW Temperature 36.1 C (96.9 F) 10/12/2016 12:23 PM MESS ATTENDANT CREW Respiratory Rate 14 10/12/2016 12:23 PM MESS ATTENDANT CREW Oxygen Saturation 94% 10/12/2016 12:23 PM MESS ATTENDANT CREW Inhaled Oxygen Concentration - - Weight 117.5 kg (259 lb) 10/12/2016 12:23 PM MESS ATTENDANT CREW Height 177.8 cm (5' 10 ) 10/12/2016 12:23 PM MESS ATTENDANT CREW Body Mass Index 37.16 10/12/2016 12:23 PM MESS ATTENDANT CREW Plan of Treatment Health Maintenance Due Date [...] Recently Relevant to Health Maintenance Insurance MEDICARE [employer] Care Teams [employer]dnance [employer] Officer Relationship Specialty Start Date End Date Corey Angel MD PCP - General Internal Medicine 03/31/16 Uzair Dye DO Gastroenterology 03/31/16
--- OUTSIDE RECORDS SUMMARY | 2025-01-29 23:01 | XMS_ITS | Clinical Summary ---
Author Organization [facility] Address [address] [place] [address] Care Team Providers Care Metallurgical Inspector Name Role Phone Corey Angel MD Primary Care Provider [phone] Allergies No known active allergies Medications rosuvastatin [...] Squamous cell carcinoma of skin of left sabianism 0 05/30/2018 Knee pain 04/22/2016 Resolved Problems [...] this topic Insurance HUMANA HUMANA Care Teams Metallurgical Inspector Relationship Specialty Start Date End Date Corey Angel MD [address] [place] [address] PCP - General INTERNAL MEDICINE 02/25/21
[2025-01-29 23:09] VITALS: BP 130/100; PULSE 103; RESP 15; TEMP 36.1; O2SAT 97
[2025-01-29 23:45] VITALS: BP 154/108; PULSE 85; RESP 10; TEMP 36.8; O2SAT 99
--- OUTSIDE RECORDS SUMMARY | 2025-01-29 23:50 | XMS_ITS | Referral Summary ---
Author Organization [facility] Address [address] [place] [address] Care Team Providers Care Backup Administrative Coordinator Name Role Phone Corey Agnel MD Primary Care Provider Nallely Thomson MD Unavailable Harman Morales MD Unavailable [phone] James Robert DO Unavailable [phone] Encounters Date Type Department Care Team Description 01/28/2025 Orders Only [facility] Office Building 2 Radiation Oncology [address] [place] [address] Simon Garcia PA Prostate cancer (HCC) (Primary Dx) 01/09/2025 Telephone [facility] Cardiology [address] [facility] 8th [place] [address] [place] [address] Albino Yanez MD 01/08/2025 Telephone [facility] Cardiology [address] [facility] 8th [place] [address] [place] [address] Kim Sewell 01/08/2025 Documentation [facility] Cardiology [address] [facility] Floor 1, [address] [place] [address] Sara Hendrix RN 01/08/2025 11:00 AM CDT Office Visit [facility] Cardiology [facility] Floor 1, [address] [place] [address] Albino Yanez MD 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, unspecified vessel or lesion type (Primary Dx); Body mass index (BMI) of 39.0 to 39.9 in adult; High risk medication use; Essential hypertension 01/07/2025 12:44 PM CDT - 01/07/2025 11:59 PM CDT Hospital Encounter [facility] Lab [address] [place] [address] Pain in right foot; Swelling of right foot Discharge Disposition: Discharge to home or self care 01/01/2025 Telephone [facility] Office Building 2 Radiation Oncology [address] [place] [address] Lucila Rodriguez 12/31/2024 Orders Only [facility] Office Building 2 Radiation Oncology [address] [place] [address] Simon Garcia PA Pain in right foot (Primary Dx); Swelling of right foot 12/20/2024 10:30 AM CDT Ancillary Procedure [facility] Medical Group Cardiology [address] [facility] [address] [place] [address] Palpitations 12/06/2024 1:15 PM CDT Office Visit [facility] Oncology [address] [facility] [address] [place] [address] James Robert DO Prostate cancer (HCC) (Primary Dx) 11/27/2024 1:30 PM VENEER MANUFACTURER Office Visit [facility] Office Building 2 Radiation Oncology [address] [place] [address] Simon Garcia PA Prostate cancer (HCC) (Primary Dx); Personal history of radiation therapy 11/22/2024 3:10 PM VENEER MANUFACTURER - 11/22/2024 11:59 PM VENEER MANUFACTURER Hospital Encounter [address] [address] Prostate cancer (HCC) Discharge Disposition: Discharge to home or self care 11/22/2024 3:00 PM VENEER MANUFACTURER Lab [facility] Medical Group Outpatient Lab at [address] [phone] Prostate cancer (HCC) (Primary Dx) 11/19/2024 Telephone [facility] Cardiology [address] [facility] Medicine 8th [place] [address] [place] [address] Dana López 11/16/2024 Telephone [facility] Physicians [facility] Oncology [address] [facility] [address] [place] [address] Sherin Armenta CMA 11/06/2024 Telephone [place] [address] [place] [address] Referral, Self Appointment Request from [...] mL auto-injectorInd ications:Coronar y artery disease involving resighini heart without angina pectoris, unspecified vessel or [...] mosque - Left 05/30/2018 Knee pain 04/22/2016 Immunizations [...] on file Legal Sex Male 2:49 AM VENEER MANUFACTURER Gender Identity Male 05/22/2018 10:57 AM CDT Sexual Orientation Straight 11/03/2020 7: 01 PM VENEER MANUFACTURER Occupation Industry Job Start Date Job End Date working Not on file Not on file 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 Not on file [...] TOTAL TESTOSTERONE Routine 11/22/2024 3: 10 PM VENEER MANUFACTURER Prostate cancer (HCC) PSA DIAGNOSTIC Routine 11/22/2024 3:10 PM VENEER MANUFACTURER Prostate cancer (HCC) from Last 3 Months Results * US Vein Duplex Lower Extremity Right Limited, Unilateral (01/07/2025 1:27 PM CDT) Anatomical Region Laterality Modality Vascular Right Ultrasound 01/07/2025 1:07 PM CDT Narrative 01/08/2025 12:01 PM CDT Lower Extremity Venous Report Patient Name: NALLELY MEJIA S : 1950 (74y 1m) Gender: M Study Date: 01/07/2025 01:07:40 PM Last Marker: Tracy Guzman RDMS,RVT Order Provider: SIMON GARCIA [...] Gender: M Study Date: 01/07/2025 01:07:40 PM Last Marker: Tracy Guzman RDMS,RVT Order Provider: SIMON GARCIA [...] phy Narrative 12/26/2024 5:05 PM CDT AMBULATORY APPLICATIONS SYSTEMS ANALYST REPORT Patient Name: Nallely Mejia Date of [...] was used to complete this document, therefore, profile stitching machine operator variances may occur. Sushant Madison MD, [facility] 12/26/24 Procedure Note Sushant Madison MD - 12/26/2024 AMBULATORY APPLICATIONS SYSTEMS ANALYST REPORT Patient Name: Nallely Mejia Date of [...] software was used to complete this document, therefore,profile stitching machine operator variances may occur. Sushant Madison MD, [facility] 12/26/24 Corey Angel MD CV CARDIAC SERVICES PROCEDURE S Final Result * (ABNORMAL) Total testosterone (11/22/2024 3:10 PM VENEER MANUFACTURER) Testosterone <3(L) 193 - 740 ng/dL Blood 11/22/2024 3:10 PM VENEER MANUFACTURER 11/22/2024 9:25 PM VENEER MANUFACTURER Simon TAN LAB BLOOD ORDERABLES Final Result Performing Organization Address [facility] de Phone Number SHILPA [address] [address] [place] [address] * PSA diagnostic (11/22/2024 3:10 PM VENEER MANUFACTURER) PSA-Total <0.01 <=6.20 ng/mL Comment: Interpretive Data [...] last revised 22. Blood 11/22/2024 3:10 PM VENEER MANUFACTURER 11/22/2024 9:25 PM VENEER MANUFACTURER Simon TAN LAB BLOOD ORDERABLES Final Result Performing Organization Address [facility] [place] Number [place] [address] [address] [place] [place] [address] from Last 3 Months Insurance FOR LIFE HUMANA CHOICE MEDICARE PPO MEDICARE FOR LIFE [employer] FOR LIFE HUMANA CHOICE MEDICARE PPO [place] [id number] Care Teams Backup Administrative Coordinator Relationship Specialty Start Date End Date Corey Angel MD [address] [facility] [address] [place] [address] PCP - General Internal Medicine 06/18/21 Nallely Thomson MD [address] [place] [address] Referring Physician Urology 06/14/24 Harman Morales MD [address] [place] [address] [address] [place] [address] Radiation Oncologist Radiation Oncology 06/22/24 James Robert DO [address] [place] [address] MEDICAL ONCOLOGY, [facility] [address] [place] [address] Medical Oncologist/Coat Maker Hematology and Oncology 07/12/24
--- OUTSIDE RECORDS SUMMARY | 2025-01-29 23:50 | XMS_ITS | Continuity of Care Document ---
Author Name [facility] Organization [facility] Care Team Providers Care Ux Designer Name Role Phone [facility] Unavailable Unavailable Medications Combined list of outpatient [...] 'S LAB, 120 ea. BOTTLE Cancele d [id number] : 2023 0 Pharmac y Data Transac tion Service Facilit y ICOSAPENT ETHYL (icosapent ethyl), 1 G, CAPSULE, ORAL, 'S LAB, 120 ea. BOTTLE Cancele d [id number] : 2023 0 Pharmac y Data Transac tion Service Facilit y LORAZEPAM (lorazepam) , 0.5 MG, TABLET, ORAL, AUROBINDO PHARM, 500 ea. BOTTLE Active [id number] 4 2023 45 Pharmac y Data Transac tion Service Facilit y LORAZEPAM (lorazepam) , 0.5 MG, TABLET, ORAL, AUROBINDO PHARM, 500 ea. BOTTLE Active [id number] 4 2023 45 Pharmac y Data Transac tion Service Facilit y METOPROLOL SUCCINATE (metoprolol succinate), 25 MG, TAB ER 24H, ORAL, ACTAVIS/TEV A, 100 ea. BOTTLE Active [id number] 4 2023 45 Pharmac y Data Transac tion Service Facilit y ROSUVASTATI N CALCIUM (rosuvastat in calcium), 40 MG, TABLET, ORAL, CAMBER PHARMACE, 30 ea. BOTTLE Active [id number] 4 2023 90 Pharmac y Data Transac tion Service Facilit y Immunizations Combined list of available immunizations from the Department of Defense and Veterans Affairs facilities. Immunization Series Date Given Administered By Site Reaction Lot Number CVX Code Drug Vacuum Tank Tender Status Comments Source COVID-19, mRNA, LNP-S, PF, 30 mcg/0.3 mL dose 2020 [place] (PFR) Not Given COVID-19, mRNA, LNP-S, [...] 1 2005 Unknown, Provider [id number] 15 [facility] ([facility]) complet ed influenza virus vaccine, split virus (incl. purified surface antigen)- retired CODE DoD influenza virus vaccine, split virus (incl. purified surface antigen)-reti red CODE 1 2004 Unknown, Provider [id number] 15 Sanofi Pasteur ([facility]) complet ed influenza virus vaccine, split virus (incl. purified surface antigen)- retired CODE DoD typhoid vaccine, parenteral, other than acetone-kille d, dried 1 2004 Unknown, Provider [id number] Sanofi Pasteur ([facility]) complet ed typhoid vaccine, parentera l, other than acetone-k illed, dried DoD hepatitis A vaccine, adult dosage 1 2004 Unknown, Provider [id number] [facility] complet ed hepatitis A vaccine, adult dosage DoD influenza virus vaccine, whole virus 1 1998 Unknown, Provider [id number] 16 [facility] complet ed influenza virus vaccine, whole virus [facility] tuberculin skin test; purified protein derivative solution, intradermal 1 1997 Unknown, Provider 96 Transcribed (TRS) complet ed tuberculi n skin test; purified protein derivativ e solution, intraderm al DoD Procedures Combined list of: 1) Procedures from Department of Veterans Affairs facilities going back up to thelast 18 months, not all [place] non-surgical procedures are included; 2) All procedures from the Department of Defense facilities. Procedure Procedure Type Code Date Perfomer Comments Brianna nery EXCISION OF HEMORRHOIDS 09/13/1993 [facility] Social History Combined list of available smoking, tobacco, and other social history from Department of Defense and Veterans Affairs facilities. Social History Type Response Date Comment Karen gabriel This section is an empty social history section. DoD
--- OUTSIDE RECORDS SUMMARY | 2025-01-29 23:50 | XMS_ITS ---
Author Organization [facility] Address [address] [place] [address] Care Team Providers Care Wire Splicer Name Role Phone Corey Angel MD Primary Care Provider [phone] Clem Thomson MD Unavailable Harman Morales MD Unavailable [phone] James Robert DO Unavailable [phone] Active Problems Problem Noted Date Diagnosed Date Personal history of radiation therapy 11/15/2024 Prostate cancer 05/02/2024 Cancer Staging:Clinical stage from 06/28/2024:Stage IIIB(cT3b, cN0, cM0, PSA: 9.1, Grade Group: 2) - Signed by Harman Morales MD on 06/28/2024 Elevated PSA 12/19/2023 Ascending aortic aneurysm 06/19/2021 Squamous cell carcinoma of skin of left christianity - Left 05/30/2018 Knee pain 04/22/2016 Current [...]
--- OUTSIDE RECORDS SUMMARY | 2025-01-29 23:50 | XMS_ITS | Clinical Summary ---
Author Organization [facility] Address [address] [place] [address] Care Team Providers Care Shoes Salesperson Name Role Phone Corey Angel MD Primary Care Provider [phone] Nallely Thomson MD Unavailable Harman Morales MD Unavailable [phone] James Robert DO Unavailable [phone] Allergies No known active allergies Medications esomeprazole [...] mL auto-injectorInd ications:Coronar y artery disease involving umkumiut heart without angina pectoris, unspecified vessel or [...] Squamous cell carcinoma of skin of left presybeterian - Left 05/30/2018 Knee pain 04/22/2016 Encounters Date Type Department Care Team Description 01/28/2025 Orders Only [facility] Medical Office Building 2 Radiation Oncology [address] [place] [address] Simon Garcia PA Prostate cancer (HCC) (Primary Dx) 01/09/2025 Telephone [facility] Cardiology [address] [place] [address] 8th [place] [address] [place] [address] Albino Yanez MD 01/08/2025 11:00 AM CDT Office Visit [facility] Cardiology [facility]0 [facility] Floor 1, [address] [place] [address] Albino Yanez MD 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, unspecified vessel or lesion type (Primary Dx); Body mass index (BMI) of 39.0 to 39.9 in adult; High risk medication use; Essential hypertension 01/08/2025 Telephone [facility] Cardiology [address] [place] [address] 8th [place] [address] [place] [address] Kristel Sewellelle 01/08/2025 Documentation [facility] Cardiology [facility] Floor 1, [address] [place] [address] Sara Hendrix RN 01/07/2025 12:44 PM CDT - 01/07/2025 11:59 PM CDT Hospital Encounter [facility] Lab [address] [place] [address] Pain in right foot; Swelling of right foot Discharge Disposition: Discharge to home or self care 01/01/2025 Telephone [facility] Office Building 2 Radiation Oncology [address] [place] [address] Lucila Rodriguez 12/31/2024 Orders Only [facility] Office Building 2 Radiation Oncology [address] [place] [address] Simon Garcia PA Pain in right foot (Primary Dx); Swelling of right foot 12/20/2024 10:30 AM CDT Ancillary Procedure [facility] Medical Group Cardiology [address] [place] [address] Palpitations 12/06/2024 1:15 PM CDT Office Visit [facility] Oncology [address] [place] [address] [address] [place] [phone] James Robert DO Prostate cancer (HCC) (Primary Dx) 11/27/2024 1:30 PM BEAM BUILDER HELPER Office Visit [facility] Office Building 2 Radiation Oncology [address] [place] [address] Simon Garcia PA Prostate cancer (HCC) (Primary Dx); Personal history of radiation therapy 11/22/2024 3:10 PM BEAM BUILDER HELPER - 11/22/2024 11:59 PM BEAM BUILDER HELPER Hospital Encounter [facility] [address] [place] [address] Prostate cancer (HCC) Discharge Disposition: Discharge to home or self care 11/22/2024 3:00 PM BEAM BUILDER HELPER Lab [facility] Medical Group Outpatient Lab at [address] [phone] Prostate cancer (HCC) (Primary Dx) 11/19/2024 Telephone [facility] Cardiology [address] [facility] Medicine 8th [place] [address] [place] [address] Dana López 11/16/2024 Telephone [facility] Oncology [facility]8 [facility] [address] [place] [phone] Sherin Armenta, BESS 11/06/2024 Telephone [place] [address] [place] [address] Referral, Self Appointment Request from [...] on file Legal Sex Male 2:49 AM BEAM BUILDER HELPER Gender Identity Male 05/22/2018 10:57 AM CDT Sexual Orientation Straight 11/03/2020 7: 01 PM BEAM BUILDER HELPER Occupation Industry Job Start Date Job End Date working Not on file 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 Not on file [...] TOTAL TESTOSTERONE Routine 11/22/2024 3: 10 PM BEAM BUILDER HELPER Prostate cancer (HCC) PSA DIAGNOSTIC Routine 11/22/2024 3:10 PM BEAM BUILDER HELPER Prostate cancer (HCC) from Last 3 Months Results * US Vein Duplex Lower Extremity Right Limited, Unilateral (01/07/2025 1:27 PM CDT) Anatomical Region Laterality Modality Vascular Right Ultrasound 01/07/2025 1:07 PM CDT Narrative 01/08/2025 12:01 PM CDT Lower Extremity Venous Report Patient Name: NALLELY MEJIA S : 1950 (74y 1m) Gender: M Study Date: 01/07/2025 01:07:40 PM Corporation Pilot: Tracy Guzman RDMS,RVT Order Provider: SIMON GARCIA [...] Gender: M Study Date: 01/07/2025 01:07:40 PM Corporation Pilot: Tracy Guzman RDMS,RVT Order Provider: SIMON GARCIA [...] phy Narrative 12/26/2024 5:05 PM CDT AMBULATORY PICK PULLING MACHINE TENDER REPORT Patient Name: Nallely Mejia Date of [...] was used to complete this document, therefore, pleasure craft sailor variances may occur. Sushant Madison MD, [facility] 12/26/24 Procedure Note Sushant Madison MD - 12/26/2024 AMBULATORY PICK PULLING MACHINE TENDER REPORT Patient Name: Nallely Mejia Date of [...] software was used to complete this document, therefore,pleasure craft sailor variances may occur. Sushant Madison MD, [facility] 12/26/24 us Corey Angel MD CV CARDIAC SERVICES PROCEDURE S Final Result * (ABNORMAL) Total testosterone (11/22/2024 3:10 PM BEAM BUILDER HELPER) Testosterone <3(L) 193 - 740 ng/dL Blood 11/22/2024 3:10 PM BEAM BUILDER HELPER 11/22/2024 9:25 PM BEAM BUILDER HELPER Simon TAN LAB BLOOD ORDERABLES Final Result Performing Organization Address [facility] Phone Number SHILPA [place] [address] [address] Department [place] [address] * PSA diagnostic (11/22/2024 3:10 PM BEAM BUILDER HELPER) PSA-Total <0.01 <=6.20 ng/mL Comment: Interpretive Data [...] last revised 22. Blood 11/22/2024 3:10 PM BEAM BUILDER HELPER 11/22/2024 9:25 PM BEAM BUILDER HELPER Simon TAN LAB BLOOD ORDERABLES Final Result Performing Organization Address [facility] Phone Number SHILPA [address] [address] [place] [address] from Last 3 Months Insurance [employer] HUMANA CHOICE MEDICARE PPO MEDICARE FOR LIFE FOR LIFE HUMANA CHOICE MEDICARE PPO Care Teams Shoes Salesperson Relationship Specialty Start Date End Date Corey Angel MD [address] [facility] [address] [place] [address] PCP - General Internal Medicine 06/18/21 Nallely Thomson MD [address] [place] [address] Referring Physician Urology 06/14/24 Harman Morales MD [address] [place] [address] [address] [place] [address] Radiation Oncologist Radiation Oncology 06/22/24 James Robert DO [address] [place] [address] MEDICAL ONCOLOGY, [facility] [address] [place] [address] Medical Oncologist/Software Development Specialist Hematology and Oncology 07/12/24
--- OUTSIDE RECORDS SUMMARY | 2025-01-29 23:50 | XMS_ITS | Encounter Summary ---
Author Organization [facility] Address [facility] [place] [address] Care Team Providers Care Linux System Engineer Name Role Phone Corey Angel MD Primary Care Provider [phone] Encounter Details Date Type Department Care Team (Latest Contact Info) Description 01/18/2024 [email or web address] Message [facility]-[address] [address] Diego Muse MD [address] [place] [address] [place] [address] [place] [phone] Heart Monitor Status Social History Tobacco Use [...] on filedocumented in this encounter Care Teams Linux System Engineer Relationship Specialty Start Date End Date Corey Angel MD [address] [place] [address] PCP - General INTERNAL MEDICINE 02/25/21 documented as of this encounter
--- OUTSIDE RECORDS SUMMARY | 2025-01-29 23:50 | XMS_ITS | Encounter Summary ---
Author Organization [facility] Address [address] [place] [address] Care Team Providers Care Sugar Drier Name Role Phone Corey Angel MD Primary Care Provider Clem Thomson MD Unavailable Harman Morales MD Unavailable [phone] James Robert DO Unavailable [phone] Encounter Details Date Type Department Care Team (Late st Contact Info) Description 01/28/2025 Orders Only [facility] Medical Office Building 2 Radiation Oncology [address] [place] [address] Yanci Garcia, PA [address] [place] [address] Prostate cancer (HCC) (Primary Dx) Social [...] on file Legal Sex Male 2:49 AM LODE MINER BLASTING Gender Identity Male 05/22/2018 10:57 AM CDT Sexual Orientation Straight 11/03/2020 7: 01 PM LODE MINER BLASTING Occupation Industry Job Start Date Job End Date working Not on file 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 Not on file [...] prostate documented in this encounter Care Teams Sugar Drier Relationship Specialty Start Date End Date Corey Angel MD [address] [facility] [address] [place] [address] PCP - General Internal Medicine 06/18/21 Clem Thomson MD [address] [place] [address] Referring Physician Urology 06/14/24 Harman Morales MD [address] [place] [address] [address] [place] [address] Radiation Oncologist Radiation Oncology 06/22/24 James Robert DO [address] [place] [address] MEDICAL ONCOLOGY, [facility] [address] [place] [address] Medical Oncologist/Relief Man Hematology and Oncology 07/12/24 documented as of this encounter
--- OUTSIDE RECORDS SUMMARY | 2025-01-29 23:50 | XMS_ITS | Clinical Summary ---
Author Organization [facility] Address [address] [place] [address] Care Team Providers Care Bean Roaster Name Role Phone Corey Angel MD Primary Care Provider [phone] Allergies No known active allergies Medications rosuvastatin [...] Squamous cell carcinoma of skin of left orthodox 0 05/30/2018 Knee pain 04/22/2016 Resolved Problems [...] this topic Insurance HUMANA HUMANA Care Teams Bean Roaster Relationship Specialty Start Date End Date Corey Angel MD [address] [place] [phone] PCP - General INTERNAL MEDICINE 02/25/21
--- OUTSIDE RECORDS SUMMARY | 2025-01-29 23:50 | XMS_ITS | Encounter Summary ---
Author Organization [facility] Address [facility] [place] [address] Care Team Providers Care Casing Puller Name Role Phone Corey Angel MD Primary Care Provider [phone] Encounter Details Date Type Department Care Team (Late st Contact Info) Description 12/14/2022 [place] Message [facility] [facility] [address] [address] Mychart, [facility] Provider Stress test Social History Tobacco [...] on filedocumented in this encounter Care Teams Casing Puller Relationship Specialty Start Date End Date Corey Angel MD [address] [place] [address] PCP - General INTERNAL MEDICINE 02/25/21 documented as of this encounter
--- OUTSIDE RECORDS SUMMARY | 2025-01-29 23:50 | XMS_ITS | Clinical Summary ---
Author Organization [facility] Address [address] [address] Phone Care Team Providers Care Wireless Telegrapher Name Role Phone Corey Angel MD Primary Care Provider Uzair Dye DO Unavailable [phone] Allergies No known active allergies Medications [...] Comments Blood Pressure 120/90 10/12/2016 12:23 PM AGRICULTURAL EQUIPMENT OPERATOR Pulse 79 10/12/2016 12:23 PM AGRICULTURAL EQUIPMENT OPERATOR Temperature 36.1 C (96.9 F) 10/12/2016 12:23 PM AGRICULTURAL EQUIPMENT OPERATOR Respiratory Rate 14 10/12/2016 12:23 PM AGRICULTURAL EQUIPMENT OPERATOR Oxygen Saturation 94% 10/12/2016 12:23 PM AGRICULTURAL EQUIPMENT OPERATOR Inhaled Oxygen Concentration - - Weight 117.5 kg (259 lb) 10/12/2016 12:23 PM AGRICULTURAL EQUIPMENT OPERATOR Height 177.8 cm (5' 10 ) 10/12/2016 12:23 PM AGRICULTURAL EQUIPMENT OPERATOR Body Mass Index 37.16 10/12/2016 12:23 PM AGRICULTURAL EQUIPMENT OPERATOR Plan of Treatment Health Maintenance Due Date [...] Recently Relevant to Health Maintenance Insurance MEDICARE [employer] Care Teams Wireless Telegrapher Relationship Specialty Start Date End Date Corey Angel MD PCP - General Internal Medicine 03/31/16 Uzair Dye DO Gastroenterology 03/31/16
[2025-01-30] VITALS (17 sets, daily range): BP systolic 123–162; BP diastolic 92–144; PULSE 79–94; RESP 13–21; TEMP 36.2–36.7; O2SAT 93–98; BMI 38.7
[2025-01-30 00:29] LABS: Basophils Absolute Auto 0.1 K/mm3 (0.0-0.1); Eosinophils Absolute Auto 0.5 K/mm3 (0-0.3); Eosinophils Percent Auto 8.5 % (0-4.4); Hematocrit 39.3 % (42.0-52.0); Hemoglobin 12.5 g/dL (14.0-18.0); Immature Granulocyte Absolute 0.22 K/mm3 (0.00-0.031); Immature Granulocyte Percent A 3.6 % (0-0.5); Lymphocytes Absolute Auto 0.74 K/mm3 (0.9-3.2); Mean Corpuscular HGB Conc 31.8 g/dl (32-36); Mean Corpuscular Hemoglobin 28.7 pg (26-34); Mean Corpuscular Volume 90.1 fl (80-100); Mean Platelet Volume 10.5 fl (7.4-10.4); Monocytes Absolute Auto 1.1 K/mm3 (0.1-0.6); Monocytes Percent Auto 17.1 % (2.6-8.5); Neutrophils Absolute Auto 3.6 K/mm3 (1.3-6.7); Neutrophils Percent Auto 57.8 % (45.5-73.1); Platelet Count Result 202 k/mm3 (150-375); Red Blood Count 4.36 M/mm3 (4.6-6.20); Red Cell Distribution Width 13.5 % (11.5-14.5); White Blood Count 6.2 K/mm3 (4.5-10.0)
--- NOTE | 2025-01-30 00:32 | ED_ITS ---
HPI - Extremity Injury (Lower) General Chief Complaint: Extremity Injury, Lower <Zulema Wilson PA-C - Last Filed: 01/30/25 02:04> Stated Complaint: Redness/pain to lower right leg <Zulema Wilson PA-C - Last Filed: 01/30/25 02:04> Time Seen by Provider: 01/29/25 23:42 <Zulema Wilson PA-C - Last Filed: 01/30/25 02:04> History of Present Illness HPI Narrative: 74-year-old male with history of GERD, prostate cancer on abiratone, PE in August 2024 on Eliquis, hyperlipidemia presents to the emergency department for right lower extremity edema and erythema. Patient was seen in our ED on 01/17/2025 after mechanical fall and right knee injury. X-rays of the time showed degenerative disease without acute fracture. Patient obtained a couple abrasions to his right knee which later became infected. Started on doxycycline 1 week ago by his PCP which she has been taking as prescribed. He states despite taking his doxycycline he developed redness and swelling distally to his tib-fib which has continued to progress despite taking his doxycycline. He denies fevers. States he is compliant with his Eliquis and has not missed any doses. <AUGUSTIN Lopez Last Filed: 01/30/25 02:04> Related Data Home Medications: Home Medications Medication Instructions Recorded Confirmed Last Taken Type cholecalciferol (vitamin D3) 50 2,000 unit PO DAILY 09/28/22 01/30/25 09/22/24 History mcg (2,000 unit) tablet (Vitamin D3) [facility] 12/03/24 01/23/25 Unknown History metoprolol succinate 25 mg 25 mg PO DAILY 01/30/25 01/30/25 Unknown History tablet,extended release 24 hr <AUGUSTIN Lopez Last Filed: 01/30/25 02:04> Allergies/Adverse Reactions: Allergies Allergy/AdvReac Type Severity Reaction Status Date / Time No Known Allergies Allergy Verified 01/23/25 15:06 <AUGUSTIN Lopez Last Filed: 01/30/25 02:04> Review of Systems 2 Review of Systems: All systems reviewed & are unremarkable except as noted in HPI and below <Zulema Wilson PA-C - Last Filed: 01/30/25 02:04> [facility] Past Medical History Medical History: Medical History (Updated 01/30/25 @ 03:30 by WILNER Vital) Cellulitis of right leg Fall Encounter for routine adult health examination without abnormal findings Hypersomnolence Prostate cancer Sinus drainage BMI 34.0-34.9,adult Insomnia Anxiety Aortic arch aneurysm BMI 38.0-38.9,adult Hematuria Acute pain of right shoulder Tick bite Ascending aortic aneurysm Aortic root enlargement Change in vision Abnormal finding of diagnostic imaging Basal cell carcinoma Colon cancer screening Follow up Elevated serum protein level Elevated glucose Hyperlipidemia Hx of colonic polyps Encounter for special screening examination for neoplasm of prostate Vitamin D deficiency Iron deficiency anemia Abnormal finding of blood chemistry, unspecified DJD (degenerative joint disease), multiple sites Encounter for Medicare annual wellness exam BMI 35.0-35.9,adult Fatty liver Ileus 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 Hematuria, microscopic Hypokalemia Elevated LFTs Hx of gallstones BMI 37.0-37.9, adult Abdominal bloating Nausea and vomiting Hemorrhoid Hiatal hernia GERD (gastroesophageal reflux disease) <Zulema Wilson PA-C - Last Filed: 01/30/25 02:04> Surgical History Surgical History: Surgical History S/P cholecystectomy H/O hemorrhoidectomy History of colonoscopy <Zulema Wilson PA-C - Last Filed: 01/30/25 02:04> Family History Family History: Family History Father Hypertension Family history of renal failure CHF (congestive heart failure) Sibling Diabetes mellitus Mother CHF (congestive heart failure) <Zulema Wilson PA-C - Last Filed: 01/30/25 02:04> Social History Social History: Social History Smoking status: Never smoker Second hand tobacco smoke exposure: No Alcohol intake: never Substance use: never Substance use type: does not use Do You Feel Safe in your Home?: Yes Lack of Transportation: No Lack of Food: Never True Current Housing: I Have Housing Concerned About Future Housing: No Difficulty Paying Gas/Electric Bills: No Difficulty Paying for Meds: No Currently Unemployed: No Education: Master's Degree or Higher Difficulty w/ Childcare or Family Care: No Living arrangements: with family Gender identity (if verbalized by the patient): Male Spiritual care concerns: No <Zulema Wilson PA-C - Last Filed: 01/30/25 02:04> Exam 2 Narrative: GENERAL: Well-appearing, well-nourished, and in no acute distress. HEAD: Normocephalic, atraumatic. EYES: EOMI. ENT: Nares clear, no rhinorrhea or epistaxis. Mucous membranes moist. NECK: Supple. CHEST: Clear to auscultation. No respiratory distress. HEART: Regular rate and rhythm. No murmur heard. Normal peripheral pulses. ABDOMEN: Soft, nontender, nondistended, normal active bowel sounds. EXTREMITIES: Normal range of motion. SKIN: Healing ecchymosis to the anterior aspect of the right knee with 2 healing abrasions, no warmth or drainage. There is 3+ pitting edema to the right lower extremity with warmth and erythema to the distal tib-fib, no wounds. DP pulse 2 +. Sensation intact. Left lower extremity unremarkable NEURO: No focal deficits. Alert and oriented x3 <Zulema Wilson PA-C - Last Filed: 01/30/25 02:04> Course PLATINUM AND PALLADIUM KETTLE TENDER/PA Physician Supervision I agree with midlevel documentation; I performed the medical decision making component of this evaluation. <Antoinette Garcia MD - Last Filed: 01/30/25 04:28> Vital Signs Vital signs: Vital Signs Temperature 97 F L 01/29/25 23:09 Pulse Rate 103 H 01/29/25 23:09 Respiratory Rate 15 01/29/25 23:09 Blood Pressure 130/100 H 01/29/25 23:09 Pulse Oximetry 97 01/29/25 23:09 Oxygen Delivery Room Air 01/29/25 23:09 Temperature 97.6 F 01/30/25 03:49 Pulse Rate 88 01/30/25 03:50 Respiratory Rate 20 01/30/25 03:50 Blood Pressure 157/104 H 01/30/25 03:49 Pulse Oximetry 97 01/30/25 03:50 Oxygen Delivery Room Air 01/30/25 03:50 <Zulema Wilson PA-C - Last Filed: 01/30/25 02:04> Vital Signs Temperature 97 F L 01/29/25 23:09 Pulse Rate 103 H 01/29/25 23:09 Respiratory Rate 15 01/29/25 23:09 Blood Pressure 130/100 H 01/29/25 23:09 Pulse Oximetry 97 01/29/25 23:09 Oxygen Delivery Room Air 01/29/25 23:09 Temperature 97.6 F 01/30/25 03:49 Pulse Rate 88 01/30/25 03:50 Respiratory Rate 20 01/30/25 03:50 Blood Pressure 157/104 H 01/30/25 03:49 Pulse Oximetry 97 01/30/25 03:50 Oxygen Delivery Room Air 01/30/25 03:50 <Antoinette Garcia MD - Last Filed: 01/30/25 04:28> MDM - Extremity Injury (Lower) MDM Narrative Medical decision making narrative: 74-year-old male presents emergency department for right lower extremity edema and erythema for the past week. Patient was seen in our ED on 01/17/2025 after a mechanical fall and negative for any x-rays. He obtained a couple of abrasions that became infected and started on doxycycline by his PCP week ago which he has been taking as directed. Since then he has had developed progressing erythema and edema to the distal tib-fib. Patient also has history of PE and is on Eliquis which he has been taking as directed. Triage vitals with mild tachycardia 103 and elevated blood pressure, otherwise unremarkable. Patient is afebrile and nontoxic appearing. Exam significant for the above. He is neurovascularly intact. CBC shows no leukocytosis, baseline hemoglobin. Chemistries are unremarkable. D-dimer is mildly elevated but normal when age adjusted. Patient updated on results. Discussed failed outpatient antibiotic therapy for cellulitis verses DVT despite compliance. Shared decision making regarding disposition. Patient would like to be admitted for failed oral antibiotic therapy. Discussed with hospitalist PLATINUM AND PALLADIUM KETTLE TENDER who agrees to admission. Advises lactic and blood cultures. Patient started on vancomycin and admitted in stable condition. <Zulema Wilson PA-C - Last Filed: 01/30/25 02:04> Lab Data Result diagrams: 01/30/25 00:10 01/30/25 00:10 <Zulema Wilson PA-C - Last Filed: 01/30/25 02:04> Labs: Lab Results 01/30/25 01/30/25 Range/Units 00:10 01:53 WBC 6.2 (4.5-10.0) K/mm3 RBC 4.36 L (4.6-6.20) M/mm3 Hgb 12.5 L (14.0-18.0) g/dL Hct 39.3 L (42.0-52.0) % MCV 90.1 (80-100) fl MCH 28.7 (26-34) pg MCHC 31.8 L (32-36) g/dl RDW 13.5 (11.5-14.5) % Plt Count 202 (150-375) k/mm3 MPV 10.5 H (7.4-10.4) fl Immature Gran % (Auto) 3.6 H (0-0.5) % Neut % (Auto) 57.8 (45.5-73.1) % Lymph % (Auto) 12.0 L (18.3-44.2) % Meigs % (Auto) 17.1 H (2.6-8.5) % Eos % (Auto) 8.5 H (0-4.4) % Baso % (Auto) 1.0 (0.2-1.2) % Lymph # (Auto) 0.74 L (0.9-3.2) K/mm3 Meigs # (Auto) 1.1 H (0.1-0.6) K/mm3 Eos # (Auto) 0.5 H (0-0.3) K/mm3 Baso # (Auto) 0.1 (0.0-0.1) K/mm3 Abs Immat Gran (auto) 0.22 H (0.00-0.031) K/mm3 Absolute Neuts (auto) 3.6 (1.3-6.7) K/mm3 Absolute Nucleated RBC 0.000 (0.0-0.012) K/mm3 Nucleated RBC % 0.0 (0.0-0.2) % ESR 55 H (0-20) mm/hr PT 14.1 (11.1-14.7) Seconds INR 1.0 APTT 31.8 (22.3-36.8) Seconds D-Dimer 0.63 H (<0.48) ug/mL Sodium 136 L (137-145) mmol/L Potassium 3.9 (3.4-5.0) mmol/L Chloride 105 (98-107) mmol/L Carbon Dioxide 23 (22-30) mmol/L Anion Gap 8 (4-12) mmol/L BUN 13 (9-20) mg/dL Creatinine 0.65 L (0.7-1.3) mg/dL Estim Creat Clear Calc 118 ml/min Estimated GFR > 60 (59 - ) Glucose 98 (65-110) mg/dL Lactic Acid 1.1 (0.7-2.0) mmol/L Calcium 8.9 (8.4-10.2) mg/dL C-Reactive Protein 0.8 (<1.0) mg/dL Procalcitonin 0.1 ng/mL <Zulema Wilson PA-C - Last Filed: 01/30/25 02:04> Lab Results 01/30/25 01/30/25 Range/Units 00:10 01:53 WBC 6.2 (4.5-10.0) K/mm3 RBC 4.36 L (4.6-6.20) M/mm3 Hgb 12.5 L (14.0-18.0) g/dL Hct 39.3 L (42.0-52.0) % MCV 90.1 (80-100) fl MCH 28.7 (26-34) pg MCHC 31.8 L (32-36) g/dl RDW 13.5 (11.5-14.5) % Plt Count 202 (150-375) k/mm3 MPV 10.5 H (7.4-10.4) fl Immature Gran % (Auto) 3.6 H (0-0.5) % Neut % (Auto) 57.8 (45.5-73.1) % Lymph % (Auto) 12.0 L (18.3-44.2) % Meigs % (Auto) 17.1 H (2.6-8.5) % Eos % (Auto) 8.5 H (0-4.4) % Baso % (Auto) 1.0 (0.2-1.2) % Lymph # (Auto) 0.74 L (0.9-3.2) K/mm3 Meigs # (Auto) 1.1 H (0.1-0.6) K/mm3 Eos # (Auto) 0.5 H (0-0.3) K/mm3 Baso # (Auto) 0.1 (0.0-0.1) K/mm3 Abs Immat Gran (auto) 0.22 H (0.00-0.031) K/mm3 Absolute Neuts (auto) 3.6 (1.3-6.7) K/mm3 Absolute Nucleated RBC 0.000 (0.0-0.012) K/mm3 Nucleated RBC % 0.0 (0.0-0.2) % ESR 55 H (0-20) mm/hr PT 14.1 (11.1-14.7) Seconds INR 1.0 APTT 31.8 (22.3-36.8) Seconds D-Dimer 0.63 H (<0.48) ug/mL Sodium 136 L (137-145) mmol/L Potassium 3.9 (3.4-5.0) mmol/L Chloride 105 (98-107) mmol/L Carbon Dioxide 23 (22-30) mmol/L Anion Gap 8 (4-12) mmol/L BUN 13 (9-20) mg/dL Creatinine 0.65 L (0.7-1.3) mg/dL Estim Creat Clear Calc 118 ml/min Estimated GFR > 60 (59 - ) Glucose 98 (65-110) mg/dL Lactic Acid 1.1 (0.7-2.0) mmol/L Calcium 8.9 (8.4-10.2) mg/dL C-Reactive Protein 0.8 (<1.0) mg/dL Procalcitonin 0.1 ng/mL <Antoinette Garcia MD - Last Filed: 01/30/25 04:28> Discharge Plan Discharge Clinical Impression: Cellulitis of lower extremity Qualifiers: Laterality: right Qualified Code(s): L03.115 - Cellulitis of right lower limb <Zulema Wilson PA-C - Last Filed: 01/30/25 02:04> Patient Disposition: Still a Patient <Zulema Wilson PA-C - Last Filed: 01/30/25 02:04> Condition: Stable <Zulema Wilson PA-C - Last Filed: 01/30/25 02:04>
[2025-01-30 00:41] LABS: Prothrombin Time 14.1 Seconds (11.1-14.7)
[2025-01-30 00:42] LABS: Partial Thromboplastin Time 31.8 Seconds (22.3-36.8)
[2025-01-30 00:44] LABS: D Dimer 0.63 ug/mL (<0.48)
[2025-01-30 00:46] LABS: Anion Gap 8 mmol/L (4-12); Blood Urea Nitrogen 13 mg/dL (9-20); Calcium 8.9 mg/dL (8.4-10.2); Carbon Dioxide 23 mmol/L (22-30); Chloride 105 mmol/L (98-107); Estimated CRCL calculation 118 ml/min; Estimated Glomerular Filt Rate > 60; Glucose 98 mg/dL (65-110); Potassium 3.9 mmol/L (3.4-5.0); Sodium 136 mmol/L (137-145)
[2025-01-30] MEDS: VANCOMYCIN 1,500 MG/NS 500 ML 1,500 MG/500 ML BAG 250 MG IVPB ×2 (02:03→14:12)
[2025-01-30 02:17] LABS: Lactic Acid Reflex 1.1 mmol/L (0.7-2.0)
[2025-01-30 02:32] LABS: Procalcitonin 0.1 ng/mL
[2025-01-30 02:37] LABS: Erythrocyte Sedimentation Rate 55 mm/hr (0-20)
[2025-01-30 03:07] LABS: CRP 0.8 mg/dL (<1.0)
--- NOTE | 2025-01-30 03:14 | P.HP_ITS ---
H&P: HPI History of Present Illness Date/Time: 01/30/25 03:14 Chief Complaint: Right lower extremity pain and redness Narrative: This is a very pleasant 74 year old male pt with PMH of Prostate cancer, anxiety, BCC, HLD, Vitamin D deficiency, JOS, DJD, GERD, PE provoked by Chemo for Prostate cancer in 08/2024 currently on Eliquis for, cholecystectomy and hemorrhoidectomy who presented to the ER with complaints of having pain in redness with swelling in his RLE. Patient states he sustained a ground level fall on January 16 when he attempted to step up on a curb and tripped. In the fall he sustained 4 broken ribs of the right 5th, 6th, 7th and 8th ribs and landed also on his right lower extremity. One week later on the he noted some redness to his right knee and right lower extremity. He had abrasion to the knee that he had been keeping clean and applying Neosporin the as it had worsened he presented to his primary care provider who placed him on a one-week course of doxycycline. Patient to call that 1 dose of that doxycycline and comes to the emergency room tonight as he stated that distal leg was more red and it was painful to the touch on the skin. Patient denies missing any doses o f Eliquis. He denies any chest pain, dyspnea, nausea, vomiting, diarrhea or any fevers. In the ER, a workup was performed that consisted of labs. His CBC is normal without any leukocytosis or any anemia. Metabolic panel is also normal. Pt had an elevated D-dimer at 0.63, which age adjusts to a low risk for acute DVT, and pt is already on Eliquis. Additional labs requested by Hospitalist service includes ESR elevated at 55, Lactic acid which is normal at 1.1, CRP which is normal at 0.8 and a normal Procalcitonin at 0.1. Pt wants to be admitted for further workup in the clinical setting for potential failure of outpt abx treatment and to definitively rule out DVT with Doppler. Review of Systems Review of Systems: All systems reviewed & are unremarkable except as noted in HPI and below PMFSH Past Medical History Medical History (Updated 01/30/25 @ 03:30 by Genny Ramos, [employer]) Cellulitis of right leg Fall Encounter for routine adult health examination without abnormal findings Hypersomnolence Prostate cancer Sinus drainage BMI 34.0-34.9,adult Insomnia Anxiety Aortic arch aneurysm BMI 38.0-38.9,adult Hematuria Acute pain of right shoulder Tick bite Ascending aortic aneurysm Aortic root enlargement Change in vision Abnormal finding of diagnostic imaging Basal cell carcinoma Colon cancer screening Follow up Elevated serum protein level Elevated glucose Hyperlipidemia Hx of colonic polyps Encounter for special screening examination for neoplasm of prostate Vitamin D deficiency Iron deficiency anemia Abnormal finding of blood chemistry, unspecified DJD (degenerative joint disease), multiple sites Encounter for Medicare annual wellness exam BMI 35.0-35.9,adult Fatty liver Ileus 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 Hematuria, microscopic Hypokalemia Elevated LFTs Hx of gallstones BMI 37.0-37.9, adult Abdominal bloating Nausea and vomiting Hemorrhoid Hiatal hernia GERD (gastroesophageal reflux disease) Surgical History Surgical History S/P cholecystectomy H/O hemorrhoidectomy History of colonoscopy Family History Family History Father Hypertension Family history of renal failure CHF (congestive heart failure) Sibling Diabetes mellitus Mother CHF (congestive heart failure) Social History Social History Smoking status: Never smoker Second hand tobacco smoke exposure: No Alcohol intake: never Substance use: never Substance use type: does not use Do You Feel Safe in your Home?: Yes Lack of Transportation: No Lack of Food: Never True Current Housing: I Have Housing Concerned About Future Housing: No Difficulty Paying Gas/Electric Bills: No Difficulty Paying for Meds: No Currently Unemployed: No Education: Master's Degree or Higher Difficulty w/ Childcare or Family Care: No Living arrangements: with family Gender identity (if verbalized by the patient): Male Spiritual care concerns: No Meds Home Medications and Allergies Home Medications Medication Instructions Recorded Confirmed Type cholecalciferol (vitamin D3) 50 2,000 unit PO DAILY 09/28/22 01/23/25 History mcg (2,000 unit) tablet (Vitamin D3) rosuvastatin 20 mg tablet See Rx Instructions .Route 10/05/24 01/23/25 Rx .COMPLEX #90 tabs [facility] 12/03/24 01/23/25 History metoprolol succinate 25 mg See Rx Instructions .Route 12/28/24 01/23/25 Rx tablet,extended release 24 hr .COMPLEX #90 tabs zolpidem 10 mg tablet 10 mg PO QHS #90 tabs 12/28/24 01/23/25 Rx apixaban 5 mg tablet (Eliquis) 5 mg PO BID #180 tabs 01/16/25 01/23/25 Rx lorazepam 1 mg tablet 1 mg PO TID PRN anxiety #40 tabs 01/18/25 01/23/25 Rx icosapent ethyl 1 gram capsule See Rx Instructions .Route 01/19/25 01/23/25 Rx .COMPLEX #360 caps doxycycline hyclate 100 mg tablet 100 mg PO BID #14 tabs 01/23/25 01/23/25 Rx mupirocin 2 % topical ointment 1 applic topical TID #22 grams 01/23/25 01/23/25 Rx (Centany) Allergies Allergy/AdvReac Type Severity Reaction Status Date / Time No Known Allergies Allergy Verified 01/23/25 15:06 Vital Signs Vital Signs - 24 hr 01/29/25 23:09 01/29/25 23:45 Temperature 97 F L 98.3 F Pulse Rate 103 H 85 Respiratory Rate 15 10 L Blood Pressure 130/100 H 154/108 H Pulse Oximetry 97 99 Oxygen Delivery Room Air Room Air Exam Const: General: comfortable and no acute distress Other: Pleasant pt sitting in bed at this time in no acute distress. HENMT: Face/Nose/Sinus: Normal nares present and no epistaxis Mouth: Yes moist mucous membranes Eyes: General: appearance normal, both eyes and all related structures Sclera: sclerae normal Pupils: Equal, round and reactive pupils present EOM: EOMs intact bilaterally Neck: Neck: supple and no JVD Lymphatic: lymphadenopathy not noted Chest: Other: Tender to palpation over the right thorax at the site of the rib fractures. No crepitus and no flailty palpable. Resp: Effort & Inspection: normal respiratory effort Auscultation: clear to auscultation bilaterally Cardio: Rate: regular rate Rhythm: regular rhythm Heart sounds: no gallops, no murmurs and no rubs GI: Inspection: non-distended GI Palp: Yes Soft to palpation and No Tenderness to palpation present (GI) Auscultation: normal bowel sounds Skin: General skin exam: erythema (Mild erythema to the RLE ) Wounds: wounds noted Other: The right knee has two scabbed over lesions with old ecchymosis surrounding and mild redness. No warmth to the touch, but there is palpable effusion, potentially hemarthrosis. RLE distally with mild erythema from the ankle down to the right foot. No lesions, no weeping. Neuro: General: gait normal Speech: normal speech Motor exam (neuro): 5/5 motor strength present throughout and Normal motor muscle tone present throughout Sensory Exam: normal sensation Extrem: Other: See Skin assessment. Pt has edema of knee and he has obvious effusion, suspect bleeding around the joint from his Eliquis. The RLL from mid hernandez down is red, mildly warm and is edematous. The skin is sensitive to the touch. Distal neurovascular status is intact with Cap refill <2 sec and 2+ Pedal pulses. Psych: Mental Status: mental status grossly normal Affect: normal affect H&P: Results Labs Labs: Short CBC 01/30/25 Range/Units 00:10 WBC 6.2 (4.5-10.0) K/mm3 Hgb 12.5 L (14.0-18.0) g/dL Hct 39.3 L (42.0-52.0) % Plt Count 202 (150-375) k/mm3 BMP 01/30/25 00:10 Sodium 136 L Potassium 3.9 Chloride 105 Carbon Dioxide 23 BUN 13 Creatinine 0.65 L Glucose 98 Calcium 8.9 Assessment and Plan Assessment and plan (1) Cellulitis of right leg: Code(s): L03.115 - Cellulitis of right lower limb Status: Acute Assessment and Plan: * Start vancomycin dosed by pharmacy * P.r.n. pain meds * X-ray right and right tib-fib, suspect hemarthrosis. Consider orth * Blood cultures x2 pending * Venous Doppler ordered right lower extremity (2) Anxiety: Code(s): F41.9 - Anxiety disorder, unspecified Status: Chronic Assessment and Plan: * Continue home medication medications are confirmed (3) Pulmonary emboli: Qualifiers: Acute cor pulmonale presence: without acute cor pulmonale Chronicity: acute Pulmonary embolism type: unspecified Qualified Code(s): I26.99 - Other pulmonary embolism without acute cor pulmonale Code(s): I26.99 - Other pulmonary embolism without acute cor pulmonale Status: Chronic Assessment and Plan: * As previously diagnosed in August 2024 * Continue patient's Eliquis when confirmed. * Obtain venous Doppler right lower extremity (4) Vitamin D deficiency: Code(s): E55.9 - Vitamin D deficiency, unspecified Status: Chronic Assessment and Plan: * Continue vitamin-D supplementation once home meds are confirmed (5) GERD (gastroesophageal reflux disease): Qualifiers: Esophagitis presence: esophagitis presence not specified Qualified Code(s): K21.9 - Gastro-esophageal reflux disease without esophagitis Code(s): K21.9 - Gastro-esophageal reflux disease without esophagitis Status: Chronic Assessment and Plan: * Continue prophylaxis once home meds are confirmed (6) Iron deficiency anemia: Qualifiers: Iron deficiency anemia type: unspecified iron deficiency Qualified Code(s): D50.9 - Iron deficiency anemia, unspecified Code(s): D50.9 - Iron deficiency anemia, unspecified Status: Chronic Assessment and Plan: * Stable with hemoglobin and hematocrit of 12.5/39.3 * Continue iron supplementation once medication dosages confirmed (7) Prostate cancer: Code(s): C61 - Malignant neoplasm of prostate Status: Chronic Assessment and Plan: * Chronic Quality VTE Prophylaxis VTE prophylaxis: pharmacologic ordered Hospitalist MIPS Advance Care Plan I have confirmed that the patient's Advanced Care Plan is present, code status is documented, or surrogate decision maker is listed in patient medical record.: Yes Medication Reconciliation I have utilized all available resources to obtain, update and review the patients current medications (includes all prescriptions, OTC, herbals, cannabis, and nutritional supplements).: Yes
[2025-01-30] MEDS: APIXABAN 5 MG TABLET PO ×2 (08:21→20:22)
[2025-01-30] MEDS: CHOLECALCIFEROL 1,000 UNITS TABLET 2000 UNITS PO (09:26)
[2025-01-30] MEDS: METOPROLOL SUCCINATE EXT REL 25 MG TABCR PO (09:27)
[2025-01-30] MEDS: OMEGA 3 POLYUNSAT FATTY ACIDS 1 GM CAP 2 GM BY MOUTH ×2 (09:27→17:40)
[2025-01-30] MEDS: ROSUVASTATIN 20 MG TABLET BY MOUTH (09:27)
[2025-01-30 09:36] LABS: Magnesium 2.1 mg/dL (1.6-2.3)
--- NOTE | 2025-01-30 12:48 | P.PNIM_ITS ---
Progress Note: A&P Assessment and Plan (1) Cellulitis of right leg: Code(s): L03.115 - Cellulitis of right lower limb Status: Acute Assessment and Plan: * Continue vancomycin dosed by pharmacy * P.r.n. pain meds * X-ray right and right tib-fib, suspect hemarthrosis. Consider orth * Blood cultures x2 pending * Venous Doppler ordered right lower extremity negative for DVT. * Afebrile. WBC 6.2. (2) Anxiety: Code(s): F41.9 - Anxiety disorder, unspecified Status: Chronic Assessment and Plan: * Lorazepam 1 mg PO TID PRN. (3) Pulmonary emboli: Qualifiers: Acute cor pulmonale presence: without acute cor pulmonale Chronicity: acute Pulmonary embolism type: unspecified Qualified Code(s): I26.99 - Other pulmonary embolism without acute cor pulmonale Code(s): I26.99 - Other pulmonary embolism without acute cor pulmonale Status: Chronic Assessment and Plan: * As previously diagnosed in August 2024 * Continue patient's Eliquis when confirmed. * Obtain venous Doppler right lower extremity (4) Vitamin D deficiency: Code(s): E55.9 - Vitamin D deficiency, unspecified Status: Chronic Assessment and Plan: * Continue vitamin-D supplementation once home meds are confirmed (5) GERD (gastroesophageal reflux disease): Qualifiers: Esophagitis presence: esophagitis presence not specified Qualified Code(s): K21.9 - Gastro-esophageal reflux disease without esophagitis Code(s): K21.9 - Gastro-esophageal reflux disease without esophagitis Status: Chronic Assessment and Plan: * Continue prophylaxis once home meds are confirmed (6) Iron deficiency anemia: Qualifiers: Iron deficiency anemia type: unspecified iron deficiency Qualified Code(s): D50.9 - Iron deficiency anemia, unspecified Code(s): D50.9 - Iron deficiency anemia, unspecified Status: Chronic Assessment and Plan: * Stable with hemoglobin and hematocrit of 12.5/39.3 * Continue iron supplementation once medication dosages confirmed (7) Prostate cancer: Code(s): C61 - Malignant neoplasm of prostate Status: Chronic Assessment and Plan: * Chronic (8) Hypertension: Code(s): I10 - Essential (primary) hypertension Status: Acute Assessment and Plan: * Metoprolol Succinate 25 mg PO daily. Subjective Date/time seen: 01/30/25 12:48 Interval history: Patient sitting up in bed. Patient denies pain, shortness of breath, headache, dizziness, nausea, or vomiting. Review of Systems Review of Systems: All systems reviewed & are unremarkable except as noted in HPI and below Exam Const: General: comfortable and no acute distress Resp: Effort & Inspection: normal respiratory effort Auscultation: clear to auscultation bilaterally Cardio: Rate: regular rate Rhythm: regular rhythm GI: GI Palp: Yes Soft to palpation Auscultation: normal bowel sounds Skin: Other: The right knee has two scabbed over lesions with old ecchymosis surrounding and mild redness. No warmth to the touch, but there is palpable effusion, potentially hemarthrosis. RLE distally with mild erythema from the ankle down to the right foot. No lesions, no weeping. Neuro: Speech: normal speech Extrem: General: pedal edema on the right 1+ (tender when palpating) Other: right knee swollen with ecchymosis. Psych: Mental Status: mental status grossly normal Affect: normal affect Objective Data Vital Signs Vital Signs: Vital Signs - 24 hr 01/29/25 23:09 01/29/25 23:45 01/30/25 02:07 Temperature 97 F L 98.3 F Pulse Rate 103 H 85 83 Respiratory Rate 15 10 L 21 H Blood Pressure 130/100 H 154/108 H 162/144 H Pulse Oximetry 97 99 94 Oxygen Delivery Room Air Room Air 01/30/25 02:08 01/30/25 02:09 01/30/25 02:15 Temperature Pulse Rate 80 85 88 Respiratory Rate 15 13 16 Blood Pressure 154/108 H Pulse Oximetry 97 93 98 Oxygen Delivery 01/30/25 02:16 01/30/25 02:31 01/30/25 02:37 Temperature Pulse Rate 90 81 79 Respiratory Rate 17 16 16 Blood Pressure 152/112 H 142/101 H Pulse Oximetry 97 98 98 Oxygen Delivery 01/30/25 02:45 01/30/25 02:46 01/30/25 03:00 Temperature Pulse Rate 86 84 80 Respiratory Rate 17 14 14 Blood Pressure 145/99 H Pulse Oximetry 94 96 98 Oxygen Delivery 01/30/25 03:27 01/30/25 03:29 01/30/25 03:49 Temperature 97.9 F 97.6 F Pulse Rate 88 82 88 Respiratory Rate 15 15 20 Blood Pressure 127/92 H 157/104 H Pulse Oximetry 96 95 97 Oxygen Delivery 01/30/25 03:50 01/30/25 08:00 01/30/25 09:27 Temperature Pulse Rate 88 84 Respiratory Rate 20 Blood Pressure Pulse Oximetry 97 Oxygen Delivery Room Air Room Air Intake/Output Intake/Output: Intake & Output 01/27/25 01/28/25 01/29/25 01/30/25 23:59 23:59 23:59 23:59 Intake Total 740 Balance 740 Meds/Results Medications: Active Medications Generic Name Dose Route Start Last Admin Trade Name Freq PRN Reason Stop Dose Admin Acetaminophen 1,000 mg 01/30/25 03:30 Acetaminophen 500 Mg Tablet PO Q6HR PRN Mild Pain (1-3) or Headache Hydrocodone Bitart/Acetaminophen 1 tab 01/30/25 03:30 Hydrocodone/Acetaminophen (*Crx) 10-325 Mg Tablet PO Q6HR PRN Severe pain 7-10 Apixaban 5 mg 01/30/25 21:00 Apixaban 5 Mg Tablet PO Q12HR DANIELITO Docusate Sodium 100 mg 01/30/25 09:00 Docusate Sodium 100 Mg Capsule PO Q12H PRN Constipation Fish Oil 2 gm 01/30/25 09:00 01/30/25 09:27 [place] 3 Polyunsat Fatty Acids 1 Gm Cap BY MOUTH 2 gm BID DANIELITO Administration Vancomycin HCl 1,500 mg in 500 mls @ 250 mls/hr 01/30/25 14:00 Vancomycin 1,500 Mg/Ns 500 Ml IVPB Q12H DANIELITO Metoprolol Succinate 25 mg 01/30/25 09:00 01/30/25 09:27 Metoprolol Succinate Ext Rel 25 Mg Tabcr PO 25 mg DAILY DANIELITO Administration Ondansetron HCl 4 mg 01/30/25 03:30 Ondansetron Inj 4 Mg/2 Ml Vial IV PUSH Q4HR PRN Nausea Polyethylene Glycol 17 gm 01/30/25 09:00 Polyethylene Glycol 3350 17 Gm Powd.Pack PO QAM PRN Constipation Rosuvastatin Calcium 20 mg 01/30/25 09:00 01/30/25 09:27 Rosuvastatin 20 Mg Tablet BY MOUTH 20 mg DAILY DANIELITO Administration Tramadol HCl 50 mg 01/30/25 03:30 Tramadol Hcl (*Crx) 50 Mg Tablet PO Q6H PRN Pain Rated 4-6 Vitamin D 2,000 units 01/30/25 09:00 01/30/25 09:26 Cholecalciferol 1,000 Units Tablet PO 2,000 units DAILY DANIELITO Administration Radiology Results: ITS Impressions Knee X-Ray 01/30/25 05:28 Impression: Prepatellar soft tissue edema/thickening. Correlate for bursitis or p osttraumatic change. Tibia/Fibula X-Ray 01/30/25 05:28 Impression: Mild subcutaneous soft tissue edema, nonspecific. No fracture or dislocation. Venous Doppler Study 01/30/25 08:20 IMPRESSION: 1: No lower extremity deep venous thrombosis. Labs Labs: Laboratory Results - last 24 hr 01/30/25 01/30/25 01/30/25 00:10 01:53 09:10 WBC 6.2 RBC 4.36 L Hgb 12.5 L Hct 39.3 L MCV 90.1 MCH 28.7 MCHC 31.8 L RDW 13.5 Plt Count 202 MPV 10.5 H Immature Gran % (Auto) 3.6 H Neut % (Auto) 57.8 Lymph % (Auto) 12.0 L [place] % (Auto) 17.1 H Eos % (Auto) 8.5 H Baso % (Auto) 1.0 Lymph # (Auto) 0.74 L [place] # (Auto) 1.1 H Eos # (Auto) 0.5 H Baso # (Auto) 0.1 Abs Immat Gran (auto) 0.22 H Absolute Neuts (auto) 3.6 Absolute Nucleated RBC 0.000 Nucleated RBC % 0.0 ESR 55 H PT 14.1 INR 1.0 APTT 31.8 D-Dimer 0.63 H Sodium 136 L Potassium 3.9 Chloride 105 Carbon Dioxide 23 Anion Gap 8 BUN 13 Creatinine 0.65 L Estim Creat Clear Calc 118 Estimated GFR > 60 Glucose 98 Lactic Acid 1.1 Calcium 8.9 Magnesium 2.1 C-Reactive Protein 0.8 Procalcitonin 0.1 Quality VTE Prophylaxis VTE prophylaxis: pharmacologic ordered
[2025-01-30] MEDS: LORazepam (*CRX) 1 MG TABLET PO (21:35)
[2025-01-31] MEDS: VANCOMYCIN 1,500 MG/NS 500 ML 1,500 MG/500 ML BAG 250 MG IVPB (01:49)
[2025-01-31 05:32] VITALS: BP 133/91; PULSE 82; RESP 16; TEMP 36.9; O2SAT 98
[2025-01-31 05:33] VITALS: BP 133/90; PULSE 82; RESP 16; TEMP 36.9; O2SAT 98
[2025-01-31 06:14] LABS: Basophils Percent Auto 0.8 % (0.2-1.2); Eosinophils Absolute Auto 0.6 K/mm3 (0-0.3); Eosinophils Percent Auto 11.1 % (0-4.4); Hematocrit 37.9 % (42.0-52.0); Hemoglobin 11.9 g/dL (14.0-18.0); Immature Granulocyte Absolute 0.01 K/mm3 (0.00-0.031); Immature Granulocyte Percent A 0.2 % (0-0.5); Lymphocytes Absolute Auto 0.69 K/mm3 (0.9-3.2); Lymphocytes Percent Auto 13.2 % (18.3-44.2); Mean Corpuscular HGB Conc 31.4 g/dl (32-36); Mean Corpuscular Hemoglobin 28.8 pg (26-34); Mean Corpuscular Volume 91.8 fl (80-100); Mean Platelet Volume 10.6 fl (7.4-10.4); Monocytes Absolute Auto 0.8 K/mm3 (0.1-0.6); Monocytes Percent Auto 15.6 % (2.6-8.5); Neutrophils Absolute Auto 3.1 K/mm3 (1.3-6.7); Neutrophils Percent Auto 59.1 % (45.5-73.1); Platelet Count Result 192 k/mm3 (150-375); Red Blood Count 4.13 M/mm3 (4.6-6.20); Red Cell Distribution Width 13.7 % (11.5-14.5); White Blood Count 5.2 K/mm3 (4.5-10.0)
[2025-01-31 06:25] LABS: Alanine Aminotransferase 17 U/L (6-50); Albumin Level 3.9 g/dL (3.5-5.1); Alkaline Phosphatase 128 U/L (38-126); Anion Gap 9 mmol/L (4-12); Aspartate Amino Transferase 26 U/L (17-59); Bilirubin,Total 0.6 mg/dL (0.2-1.3); Blood Urea Nitrogen 13 mg/dL (9-20); Calcium 8.9 mg/dL (8.4-10.2); Carbon Dioxide 25 mmol/L (22-30); Chloride 106 mmol/L (98-107); Estimated CRCL calculation 113 ml/min; Estimated Glomerular Filt Rate > 60; Glucose 106 mg/dL (65-110); Potassium 3.6 mmol/L (3.4-5.0); Sodium 140 mmol/L (137-145)
[2025-01-31] MEDS: OMEGA 3 POLYUNSAT FATTY ACIDS 1 GM CAP 2 GM BY MOUTH ×2 (08:22→17:29)
[2025-01-31] MEDS: CHOLECALCIFEROL 1,000 UNITS TABLET 2000 UNITS PO (08:22)
[2025-01-31 08:23] VITALS: PULSE 87
[2025-01-31] MEDS: ROSUVASTATIN 20 MG TABLET BY MOUTH (08:23)
[2025-01-31] MEDS: APIXABAN 5 MG TABLET PO ×2 (08:23→21:30)
[2025-01-31] MEDS: METOPROLOL SUCCINATE EXT REL 25 MG TABCR PO (08:23)
[2025-01-31 09:06] VITALS: O2SAT 97
--- NOTE | 2025-01-31 13:03 | P.PNIM_ITS ---
Progress Note: A&P Assessment and Plan (1) Cellulitis of right leg: Code(s): L03.115 - Cellulitis of right lower limb Status: Acute Assessment and Plan: * Switch Vancomycin to Zyvox 600 mg PO q 12. * P.r.n. pain meds * X-ray right and right tib-fib, suspect hemarthrosis. Consider orth * Blood cultures no growth to date. * Venous Doppler right lower extremity negative for DVT. * Afebrile. WBC 5.2. (2) Anxiety: Code(s): F41.9 - Anxiety disorder, unspecified Status: Chronic Assessment and Plan: * Lorazepam 1 mg PO TID PRN. (3) Pulmonary emboli: Qualifiers: Acute cor pulmonale presence: without acute cor pulmonale Chronicity: acute Pulmonary embolism type: unspecified Qualified Code(s): I26.99 - Other pulmonary embolism without acute cor pulmonale Code(s): I26.99 - Other pulmonary embolism without acute cor pulmonale Status: Chronic Assessment and Plan: * As previously diagnosed in August 2024 * Eliquis 5 mg PO BID. * Venous Doppler right lower extremity negative for DVT. (4) Vitamin D deficiency: Code(s): E55.9 - Vitamin D deficiency, unspecified Status: Chronic Assessment and Plan: * Continue vitamin-D supplementation once home meds are confirmed (5) GERD (gastroesophageal reflux disease): Qualifiers: Esophagitis presence: esophagitis presence not specified Qualified Code(s): K21.9 - Gastro-esophageal reflux disease without esophagitis Code(s): K21.9 - Gastro-esophageal reflux disease without esophagitis Status: Chronic Assessment and Plan: * Continue prophylaxis once home meds are confirmed (6) Iron deficiency anemia: Qualifiers: Iron deficiency anemia type: unspecified iron deficiency Qualified Code(s): D50.9 - Iron deficiency anemia, unspecified Code(s): D50.9 - Iron deficiency anemia, unspecified Status: Chronic Assessment and Plan: * Stable with hemoglobin and hematocrit of 11.9/37.9. * Continue iron supplementation once medication dosages confirmed. (7) Prostate cancer: Code(s): C61 - Malignant neoplasm of prostate Status: Chronic Assessment and Plan: * Chronic (8) Hypertension: Code(s): I10 - Essential (primary) hypertension Status: Acute Assessment and Plan: * Metoprolol Succinate 25 mg PO daily. Subjective Date/time seen: 01/31/25 13:03 Interval history: Patient reports a headache that is a 3 , frequent, and aching. Patient denies chest pain, palpitations, dizziness, nausea, vomiting, or drainage from leg. Review of Systems Review of Systems: All systems reviewed & are unremarkable except as noted in HPI and below Exam Const: General: no acute distress and uncomfortable Resp: Effort & Inspection: normal respiratory effort Auscultation: clear to auscultation bilaterally Cardio: Rate: regular rate Rhythm: regular rhythm GI: GI Palp: Yes Soft to palpation Auscultation: normal bowel sounds Skin: Other: The right knee has two scabbed over lesions with old ecchymosis surrounding and mild redness. No warmth to the touch, but there is palpable effusion, potentially hemarthrosis. RLE distally with mild erythema from the ankle down to the right foot. No lesions, no weeping. Improving. Neuro: Speech: normal speech Extrem: General: pedal edema on the right 1+ Other: right knee swollen with ecchymosis. Psych: Mental Status: mental status grossly normal Affect: normal affect Objective Data Vital Signs Vital Signs: Vital Signs - 24 hr 01/30/25 14:00 01/30/25 20:19 01/31/25 05:32 Temperature 97.1 F L 98.1 F 98.4 F Pulse Rate 94 81 82 Respiratory Rate 18 16 16 Blood Pressure 123/93 H 147/99 H 133/91 H Pulse Oximetry 96 98 98 Oxygen Delivery 01/31/25 05:33 01/31/25 08:00 01/31/25 08:23 Temperature 98.4 F Pulse Rate 82 87 Respiratory Rate 16 Blood Pressure 133/90 Pulse Oximetry 98 Oxygen Delivery Room Air 01/31/25 09:06 Temperature Pulse Rate Respiratory Rate Blood Pressure Pulse Oximetry 97 Oxygen Delivery Room Air Intake/Output Intake/Output: Intake & Output 01/28/25 01/29/25 01/30/25 01/31/25 23:59 23:59 23:59 23:59 Intake Total 2920 390 Balance 2920 390 Meds/Results Medications: Active Medications Generic Name Dose Route Start Last Admin Trade Name Freq PRN Reason Stop Dose Admin Acetaminophen 1,000 mg 01/30/25 03:30 Acetaminophen 500 Mg Tablet PO Q6HR PRN Mild Pain (1-3) or Headache Hydrocodone Bitart/Acetaminophen 1 tab 01/30/25 03:30 Hydrocodone/Acetaminophen (*Crx) 10-325 Mg Tablet PO Q6HR PRN Severe pain 7-10 Apixaban 5 mg 01/30/25 21:00 01/31/25 08:23 Apixaban 5 Mg Tablet PO 5 mg Q12HR DANIELITO Administration Docusate Sodium 100 mg 01/30/25 09:00 Docusate Sodium 100 Mg Capsule PO Q12H PRN Constipation Fish Oil 2 gm 01/30/25 09:00 01/31/25 08:22 [place] 3 Polyunsat Fatty Acids 1 Gm Cap BY MOUTH 2 gm BID DANIELITO Administration Vancomycin HCl 1,500 mg in 500 mls @ 250 mls/hr 01/30/25 14:00 01/31/25 01:49 Vancomycin 1,500 Mg/Ns 500 Ml IVPB 250 mls/hr Q12H DANIELITO Administration Lorazepam 1 mg 01/30/25 16:00 01/30/25 21:35 Lorazepam (*Crx) 1 Mg Tablet PO 1 mg TID PRN Administration anxiety Metoprolol Succinate 25 mg 01/30/25 09:00 01/31/25 08:23 Metoprolol Succinate Ext Rel 25 Mg Tabcr PO 25 mg DAILY DANIELITO Administration Ondansetron HCl 4 mg 01/30/25 03:30 Ondansetron Inj 4 Mg/2 Ml Vial IV PUSH Q4HR PRN Nausea Polyethylene Glycol 17 gm 01/30/25 09:00 Polyethylene Glycol 3350 17 Gm Powd.Pack PO QAM PRN Constipation Rosuvastatin Calcium 20 mg 01/30/25 09:00 01/31/25 08:23 Rosuvastatin 20 Mg Tablet BY MOUTH 20 mg DAILY DANIELITO Administration Tramadol HCl 50 mg 01/30/25 03:30 Tramadol Hcl (*Crx) 50 Mg Tablet PO Q6H PRN Pain Rated 4-6 Vitamin D 2,000 units 01/30/25 09:00 01/31/25 08:22 Cholecalciferol 1,000 Units Tablet PO 2,000 units DAILY DANIELITO Administration Zolpidem Tartrate 10 mg 01/30/25 16:02 Zolpidem Tartrate (*Crx) 5 Mg Tablet PO QHS PRN Insomnia Radiology Results: ITS Impressions Knee X-Ray 01/30/25 05:28 Impression: Prepatellar soft tissue edema/thickening. Correlate for bursitis or posttraumatic change. Tibia/Fibula X-Ray 01/30/25 05:28 Impression: Mild subcutaneous soft tissue edema, nonspecific. No fracture or dislocation. Venous Doppler Study 01/30/25 08:20 IMPRESSION: 1: No lower extremity deep venous thrombosis. Labs Labs: Laboratory Results - last 24 hr 01/31/25 05:30 WBC 5.2 RBC 4.13 L Hgb 11.9 L Hct 37.9 L MCV 91.8 MCH 28.8 MCHC 31.4 L RDW 13.7 Plt Count 192 MPV 10.6 H Immature Gran % (Auto) 0.2 Neut % (Auto) 59.1 Lymph % (Auto) 13.2 L [place] % (Auto) 15.6 H Eos % (Auto) 11.1 H Baso % (Auto) 0.8 Lymph # (Auto) 0.69 L [place] # (Auto) 0.8 H Eos # (Auto) 0.6 H Baso # (Auto) 0.0 Abs Immat Gran (auto) 0.01 Absolute Neuts (auto) 3.1 Absolute Nucleated RBC 0.000 Nucleated RBC % 0.0 Sodium 140 Potassium 3.6 Chloride 106 Carbon Dioxide 25 Anion Gap 9 BUN 13 Creatinine 0.70 Estim Creat Clear Calc 113 Estimated GFR > 60 Glucose 106 Calcium 8.9 Magnesium 2.0 Total Bilirubin 0.6 AST 26 ALT 17 Alkaline Phosphatase 128 H Total Protein 7.0 Albumin 3.9 Quality VTE Prophylaxis VTE prophylaxis: pharmacologic ordered
[2025-01-31 13:18] LABS: Vancomycin Trough 10.3 ug/mL (10.0-20.0)
[2025-01-31] MEDS: HYDROcodone/acetaminophen (*CRX) 10-325 MG TABLET 1 TAB PO ×2 (13:39→22:03)
[2025-01-31 14:00] VITALS: BP 129/86; PULSE 71; RESP 18; TEMP 36.3; O2SAT 98
[2025-01-31] MEDS: LINEZOLID 600 MG TABLET PO (14:12)
[2025-01-31 20:43] VITALS: BP 165/95; PULSE 88; RESP 16; TEMP 36.3; O2SAT 96
[2025-01-31] MEDS: LORazepam (*CRX) 1 MG TABLET PO (21:30)
[2025-02-01] MEDS: LINEZOLID 600 MG TABLET PO ×2 (00:17→08:52)
[2025-02-01 05:44] VITALS: BP 132/95; PULSE 88; RESP 16; TEMP 37.1; O2SAT 95
[2025-02-01 05:55] LABS: Basophils Absolute Auto 0.1 K/mm3 (0.0-0.1); Basophils Percent Auto 0.9 % (0.2-1.2); Eosinophils Absolute Auto 0.5 K/mm3 (0-0.3); Eosinophils Percent Auto 9.1 % (0-4.4); Hematocrit 38.3 % (42.0-52.0); Hemoglobin 12.2 g/dL (14.0-18.0); Immature Granulocyte Absolute 0.02 K/mm3 (0.00-0.031); Immature Granulocyte Percent A 0.4 % (0-0.5); Mean Corpuscular HGB Conc 31.9 g/dl (32-36); Mean Corpuscular Hemoglobin 28.4 pg (26-34); Mean Corpuscular Volume 89.1 fl (80-100); Mean Platelet Volume 10.5 fl (7.4-10.4); Monocytes Absolute Auto 0.8 K/mm3 (0.1-0.6); Neutrophils Absolute Auto 3.3 K/mm3 (1.3-6.7); Neutrophils Percent Auto 61.6 % (45.5-73.1); Platelet Count Result 191 k/mm3 (150-375); Red Cell Distribution Width 13.5 % (11.5-14.5); White Blood Count 5.4 K/mm3 (4.5-10.0)
[2025-02-01 06:06] LABS: Alanine Aminotransferase 19 U/L (6-50); Alkaline Phosphatase 129 U/L (38-126); Anion Gap 9 mmol/L (4-12); Aspartate Amino Transferase 31 U/L (17-59); Bilirubin,Total 0.8 mg/dL (0.2-1.3); Blood Urea Nitrogen 10 mg/dL (9-20); Calcium 8.9 mg/dL (8.4-10.2); Carbon Dioxide 25 mmol/L (22-30); Chloride 107 mmol/L (98-107); Estimated CRCL calculation 111 ml/min; Estimated Glomerular Filt Rate > 60; Glucose 96 mg/dL (65-110); Magnesium 1.9 mg/dL (1.6-2.3); Potassium 3.5 mmol/L (3.4-5.0); Sodium 141 mmol/L (137-145)
[2025-02-01 08:00] VITALS: O2SAT 95
[2025-02-01 08:52] VITALS: PULSE 80
[2025-02-01] MEDS: OMEGA 3 POLYUNSAT FATTY ACIDS 1 GM CAP 2 GM BY MOUTH (08:52)
[2025-02-01] MEDS: ROSUVASTATIN 20 MG TABLET BY MOUTH (08:52)
[2025-02-01] MEDS: CHOLECALCIFEROL 1,000 UNITS TABLET 2000 UNITS PO (08:52)
[2025-02-01] MEDS: APIXABAN 5 MG TABLET PO (08:52)
[2025-02-01] MEDS: METOPROLOL SUCCINATE EXT REL 25 MG TABCR PO (08:52)
--- NOTE | 2025-02-01 11:20 | P.DS_ITS ---
DS: Admitting Diagnosis Discharge Date 02/01/25 Admitting Diagnosis Right lower extremity pain and redness. DS: Discharge Diagnosis Discharge Diagnosis (1) Cellulitis of right leg: Code(s): L03.115 - Cellulitis of right lower limb Status: Acute (2) Anxiety: Code(s): F41.9 - Anxiety disorder, unspecified Status: Chronic (3) Pulmonary emboli: Qualifiers: Acute cor pulmonale presence: without acute cor pulmonale Chronicity: acute Pulmonary embolism type: unspecified Qualified Code(s): I26.99 - Other pulmonary embolism without acute cor pulmonale Code(s): I26.99 - Other pulmonary embolism without acute cor pulmonale Status: Chronic DS: Summary Hospital Course Hospital Course: In the ER, a workup was performed that consisted of labs. His CBC is normal without any leukocytosis or any anemia. Metabolic panel is also normal. Pt had an elevated D-dimer at 0.63, which age adjusts to a low risk for acute DVT, and pt is already on Eliquis. Additional labs requested by Hospitalist service includes ESR elevated at 55, Lactic acid which is normal at 1.1, CRP which is normal at 0.8 and a normal Procalcitonin at 0.1. Radiology Results: ITS Impressions Knee X-Ray 01/30/25 05:28 Impression: Prepatellar soft tissue edema/thickening. Correlate for bursitis or posttraumatic change. Tibia/Fibula X-Ray 01/30/25 05:28 Impression: Mild subcutaneous soft tissue edema, nonspecific. No fracture or dislocation. Venous Doppler Study 01/30/25 08:20 IMPRESSION: 1: No lower extremity deep venous thrombosis. Patient was started on Vancomycin and transitioned to Zyvox. Swelling and redness improved. Pain in right leg subsided. Blood cultures no growth to date. Status at Discharge Functional status at discharge: independent ambulation Overall status at discharge: patient is progressing back to baseline Time Spent with Patient Time attestation: Total time spent providing and/or coordinating discharge services: Time spent: Greater than 30 minutes Exam Const: General: comfortable and no acute distress Resp: Effort & Inspection: normal respiratory effort Auscultation: clear to auscultation bilaterally Cardio: Rate: regular rate Rhythm: regular rhythm GI: GI Palp: Yes Soft to palpation Auscultation: normal bowel sounds Skin: Other: The right knee has two scabbed over lesions with old ecchymosis surrounding and mild redness. No warmth to the touch, but there is palpable effusion, potentially hemarthrosis. RLE distally with mild erythema from the ankle down to the right foot. No lesions, no weeping. Improving. Extrem: General: pedal edema on the right 1+ Other: right knee swollen with ecchymosis. Psych: Mental Status: mental status grossly normal Affect: normal affect DS: Data Data Completed and Pending Labs on day of discharge: Labs from last 24 hours 02/01/25 01/31/25 05:24 12:50 WBC 5.4 RBC 4.30 L Hgb 12.2 L Hct 38.3 L MCV 89.1 MCH 28.4 MCHC 31.9 L RDW 13.5 Plt Count 191 MPV 10.5 H Immature Gran % (Auto) 0.4 Neut % (Auto) 61.6 Lymph % (Auto) 13.0 L [place] % (Auto) 15.0 H Eos % (Auto) 9.1 H Baso % (Auto) 0.9 Lymph # (Auto) 0.70 L [place] # (Auto) 0.8 H Eos # (Auto) 0.5 H Baso # (Auto) 0.1 Abs Immat Gran (auto) 0.02 Absolute Neuts (auto) 3.3 Absolute Nucleated RBC 0.000 Nucleated RBC % 0.0 Sodium 141 Potassium 3.5 Chloride 107 Carbon Dioxide 25 Anion Gap 9 BUN 10 Creatinine 0.71 Estim Creat Clear Calc 111 Estimated GFR > 60 Glucose 96 Calcium 8.9 Magnesium 1.9 Total Bilirubin 0.8 AST 31 ALT 19 Alkaline Phosphatase 129 H Total Protein 7.0 Albumin 4.0 Vancomycin Trough 10.3 Preliminary micro results at discharge 01/30/25 01:53 Blood Culture - Preliminary Blood 01/30/25 02:00 Blood Culture - Preliminary Blood Discharge Plan Discharge Attending physician on discharge: Lesvia Chung Discharging Clinician: Marcia Kahn Anticipated Discharge Date/Time: 02/01/25 12:30 Patient Disposition: Home Activity: may shower and as tolerated Diet: heart healthy Discharge Instructions: * Monitor right knee and leg for increased swelling, redness, if areas become hot, develop drainage, or temperature >101 F. * Take all doses of antibiotics. * Wash knee with soap and water. Pat dry, place a thin layer of Mupirocin. * Elevate leg when possible. Thank you for entrusting [facility] with your healthcare! Patient Instructions: Antibiotic Form, Apixaban (By mouth) Patient Language: Uzbek Stand Alone Forms: General Discharge Information Follow-up/Referrals: Corey Angel MD [Primary Care Provider] - 1 Week Discharge Medications: New linezolid 600 mg Tablet 600 mg PO Q12HR Qty: 15 0RF Continued Blucarat [facility] 1 cap PO DAILY zolpidem 10 mg tablet 10 mg PO QHS Qty: 90 0RF mupirocin [Centany] 2 % ointment 1 applic topical TID Qty: 22 1RF metoprolol succinate 25 mg tablet extended release 24 hr 25 mg PO DAILY cholecalciferol (vitamin D3) [Vitamin D3] 50 mcg (2,000 unit) Tablet 2,000 unit PO DAILY rosuvastatin 20 mg tablet See Rx Instructions .ROUTE .COMPLEX Qty: 90 1RF Dose Instruction: TAKE 1 TABLET BY MOUTH DAILY Rx Instructions: TAKE 1 TABLET BY MOUTH DAILY Eliquis 5 mg tablet 5 mg PO BID Qty: 180 0RF Rx Instructions: Please start 5mg po bid once You have finished 10mg tablets. Meaning after one week. lorazepam 1 mg tablet 1 mg PO TID PRN (Reason: anxiety) Qty: 40 0RF icosapent ethyl 1 gram capsule See Rx Instructions .ROUTE .COMPLEX Qty: 360 1RF Dose Instruction: TAKE 2 CAPSULES BY MOUTH TWICE DAILY Rx Instructions: TAKE 2 CAPSULES BY MOUTH TWICE DAILY Date of admission: 01/31/25 16:17 Primary Care Provider: Corey Angel Admitting Provider: Corona Salvador Attending physician on admission: Corona Salvador Condition: Improved Hospitalist MIPS Heart Failure (Exclusion) Patient has history of Heart Transplant or Left Ventricular Assistive Device?: No IF YES, STOP HERE Heart Failure (Qualifier) Patient has current or prior documentation of LVEF less than or equal to 40%, or mod/servere depressed LVSF?: No IF NO, STOP HERE
== END 2025-02-01 12:04 | disposition home or self-care (01) | DRG 603 ==
LOC: ANHED 01-30 02:02 → ANH3MEDSUR 01-30 03:34
PROVIDERS: Nurse Practitioner Adult Health; Admitting Provider Internal Medicine; Emergency Provider Physician Assistant; PCP Internal Medicine; Visit Provider Nurse Practitioner Family
DX: L03.115 Cellulitis of right lower limb (principal); M25.08 Hemarthrosis, other specified site; I27.82 Chronic pulmonary embolism; F41.9 Anxiety disorder, unspecified; E78.5 Hyperlipidemia, unspecified; D50.9 Iron deficiency anemia, unspecified; K21.9 Gastro-esophageal reflux disease without esophagitis; E55.9 Vitamin D deficiency, unspecified; Z79.01 Long term (current) use of anticoagulants; Z85.46 Personal history of malignant neoplasm of prostate; Z90.49 Acquired absence of other specified parts of digestive tract; Z85.828 Personal history of other malignant neoplasm of skin
CPT/HCPCS: 36415; 73564; 73590; 80048; 80053; 80202; 83605; 83735; 84145; 85025; 85380; 85610; 85652; 85730; 86140; 87040; 93971; 96365; 96366; 96375; 99285; A9270; G0378; J3370

== ENCOUNTER 2025-02-07 22:55 | Emergency (ER) | payer MEDICARE, OTHER, SELFPAY ==
--- NOTE | ~2025-02-07 | XR_ITS ---
AP and lateral views of the right tibia/fibula Clinical History: Swelling Findings: No acute fracture or dislocation is seen. Osseous alignment is anatomic. Joint spaces are p reserved without significant erosive or degenerative change. Prepatellar soft tissue thickening/edema present. Impression: Prepatellar bursitis or other soft tissue thickening/edema. Reviewed, dictated and finalized at [facility]. Impression: Prepatellar bursitis or other soft tissue thickening/edema.
--- NOTE | ~2025-02-07 | XR_ITS ---
Right Knee Technique: AP, lateral, and sunrise views were obtained. Clinical History: Swelling Findings: No fracture or dislocation is seen. Osseous alignment is anatomic. Minimal degenerative gabriel nge present with any. There is prepatellar soft tissue thickening/edema. No joint effusion is seen. Impression: Minimal degenerative changes. Prepatellar soft tissue thickening/edema. Correlate for prepatellar bursitis. Reviewed, dictated and finalized at [facility]. Impression: Minimal degenerative changes. Prepatellar soft tissue thickening/edema. Correlate for prepatellar bursitis.
--- OUTSIDE RECORDS SUMMARY | 2025-02-07 22:58 | XMS_ITS | Continuity of Care Document ---
Author Name [facility] Organization [facility] Care Team Providers Care Ship Purser Name Role Phone [facility] Unavailable Unavailable Medications Combined list of outpatient [...] 'S LAB, 120 ea. BOTTLE Cancele d [id number] : 2023 0 Pharmac y Data Transac tion Service Facilit y LORAZEPAM (lorazepam) , 0.5 MG, TABLET, ORAL, [facility], 500 ea. BOTTLE Active [id number] 4 2023 45 Pharmac y Data Transac tion Service Facilit y LORAZEPAM (lorazepam) , 0.5 MG, TABLET, ORAL, AUROBINDO PHARM, 500 ea. BOTTLE Active [id number] 4 2023 45 Pharmac y Data Transac tion Service Facilit y METOPROLOL SUCCINATE (metoprolol succinate), 25 MG, TAB ER 24H, ORAL, ACTAVIS/TEV A, 100 ea. BOTTLE Active [id number] 4 2023 45 Pharmac y Data Transac tion Service Facilit y ROSUVASTATI N CALCIUM (rosuvastat in calcium), 40 MG, TABLET, ORAL, CAMBER PHARMACE, 30 ea. BOTTLE Active [id number] 4 2023 90 Pharmac y Data Transac tion Service Facilit y Immunizations Combined list of available immunizations from the Department of Defense and Veterans Affairs facilities. Immunization Series Date Given Administered By Site Reaction Lot Number CVX Code Drug Director Database Status Comments Source COVID-19, mRNA, LNP-S, PF, 30 mcg/0.3 mL dose 2020 [facility] [place] (PFR) Not Given COVID-19, mRNA, LNP-S, [...] 1 2005 Unknown, Provider [id number] [facility] ([facility]) complet ed influenza virus vaccine, split virus (incl. purified surface antigen)- retired CODE DoD influenza virus vaccine, split virus (incl. purified surface antigen)-reti red CODE 1 2004 Unknown, Provider [id number] Sanofi Pasteur ([facility]) complet ed influenza virus vaccine, split virus (incl. purified surface antigen)- retired CODE DoD typhoid vaccine, parenteral, other than acetone-kille d, dried 1 2004 Unknown, Provider [id number] Sanofi Pasteur ([facility]) complet ed typhoid vaccine, parentera l, other than acetone-k illed, dried DoD hepatitis A vaccine, adult dosage 1 2004 Unknown, Provider [id number] [facility] ([facility]) complet ed hepatitis A vaccine, adult dosage DoD influenza virus vaccine, whole virus 1 1998 Unknown, Provider [id number] [facility] (CON) complet ed influenza virus vaccine, whole virus [facility] tuberculin skin test; purified protein [...] Comments Karen gabriel 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 Social History Type Response Date Comment Karen gabriel This section is an empty social history section. DoD
[2025-02-07 23:09] VITALS: BP 150/102; PULSE 82; RESP 17; TEMP 36.4; O2SAT 97
[2025-02-08 00:35] VITALS: BP 151/96; PULSE 86; RESP 16; O2SAT 96
--- NOTE | 2025-02-08 00:41 | ED_ITS ---
HPI - Extremity Problem General Chief complaint: Extremity Problem,Nontraumatic Stated complaint: Cellulitis right leg-was admitted for same Time Seen by Provider: 02/08/25 00:36 History of Present Illness HPI Narrative: 74-year-old male with a past medical history including GERD, prostate cancer, history of PE on Eliquis. Presents to the emergency department for right lower extremity edema and erythema. States he was recently seen and admitted to the hospital for right lower extremity cellulitis and doing well upon discharge. He was sent home with Zyvox and he still has a few doses left. He went to his oncologist today for different appointment and was measuring his leg and was referred back to the ER for evaluation as it had not fully resolved. Patient denies any increased pain or swelling, no nausea, vomiting, fever, chills or any systemic symptoms. No new injuries. He states he did trip and fall and hit his right knee several weeks ago and that is what led to the cellulitis after he cut his knee. He had a Doppler DVT study that was done during his last visit 10 days ago that was negative. He is on Eliquis 5 mg b.i.d. without any missed dosages. Related Data Home Medications Medication Instructions Recorded Confirmed Last Taken Type cholecalciferol (vitamin D3) 50 2,000 unit PO DAILY 09/28/22 01/30/25 09/22/24 History mcg (2,000 unit) tablet (Vitamin D3) boarding pass 1 cap PO DAILY 12/03/24 01/30/25 Unknown History Allergies Allergy/AdvReac Type Severity Reaction Status Date / Time No Known Allergies Allergy Verified 02/07/25 22:57 Review of Systems 2 Review of Systems: As reviewed above in HPI [facility] Past Medical History Medical History Cellulitis of right leg Fall Encounter for routine adult health examination without abnormal findings Hypersomnolence Prostate cancer Sinus drainage BMI 34.0-34.9,adult Insomnia Anxiety Aortic arch aneurysm BMI 38.0-38.9,adult Hematuria Acute pain of right shoulder Tick bite Ascending aortic aneurysm Aortic root enlargement Change in vision Abnormal finding of diagnostic imaging Basal cell carcinoma Colon cancer screening Follow up Elevated serum protein level Elevated glucose Hyperlipidemia Hx of colonic polyps Encounter for special screening examination for neoplasm of prostate Vitamin D deficiency Iron deficiency anemia Abnormal finding of blood chemistry, unspecified DJD (degenerative joint disease), multiple sites Encounter for Medicare annual wellness exam BMI 35.0-35.9,adult Fatty liver Ileus On intermission coordinator drug therapy Hematuria, microscopic Hypokalemia Elevated LFTs Hx of gallstones BMI 37.0-37.9, adult Abdominal bloating Nausea and vomiting Hemorrhoid Hiatal hernia GERD (gastroesophageal reflux disease) Surgical History Surgical History S/P cholecystectomy H/O hemorrhoidectomy History of colonoscopy Family History Family History Father Hypertension Family history of renal failure CHF (congestive heart failure) Sibling Diabetes mellitus Mother CHF (congestive heart failure) Social History Social History Smoking status: Never smoker Second hand tobacco smoke exposure: No Alcohol intake: never Substance use: never Substance use type: does not use Do You Feel Safe in your Home?: Yes Lack of Transportation: No Lack of Food: Never True Current Housing: I Have Housing Concerned About Future Housing: No Difficulty Paying Gas/Electric Bills: No Difficulty Paying for Meds: No Currently Unemployed: No Education: Master's Degree or Higher Difficulty w/ Childcare or Family Care: No Living arrangements: with family Gender identity (if verbalized by the patient): Male Spiritual care concerns: No Exam 2 Narrative: GENERAL: [Well-appearing, well-nourished, and in no acute distress.] HEAD: [Normocephalic, atraumatic.] EYES: [PERRLA and EOMI.] ENT: Nares clear, no rhinorrhea or epistaxis. Mucous membranes moist. NECK: Supple. CHEST: [Clear to auscultation. No respiratory distress.] HEART: [Regular rate and rhythm]. No murmur heard. [Normal peripheral pulses.] ABDOMEN: [Soft, nondistended], [nontender], [No rigidity or guarding] EXTREMITIES: Normal range of motion. Right lower extremity has some pretibial edema as well as suprapatellar edema versus effusion and some very minor erythema but no overlying overt signs of cellulitis, dimpling, redness streaking or any open wounds. Not warm to the touch and no pain with palpation. No crepitus with palpation. SKIN: Warm, dry, no rash. NEURO: [No focal deficits]. Alert and oriented [x3.] PSYCH: [Normal mood and affect.] Course Vital Signs Vital signs: Vital Signs Temperature 36.4 C 02/07/25 23:09 Pulse Rate 82 02/07/25 23:09 Respiratory Rate 17 02/07/25 23:09 Blood Pressure 150/102 H 02/07/25 23:09 Pulse Oximetry 97 02/07/25 23:09 Oxygen Delivery Room Air 02/07/25 23:09 Temperature 36.4 C 02/07/25 23:09 Pulse Rate 86 02/08/25 00:35 Respiratory Rate 16 02/08/25 00:35 Blood Pressure 151/96 H 02/08/25 00:35 Pulse Oximetry 96 02/08/25 00:35 Oxygen Delivery Room Air 02/07/25 23:09 MDM - Extremity (Nontraumatic) MDM Narrative Medical decision making narrative: 74-year-old male with a past medical history including prostate cancer, provoked DVT/PE currently on Eliquis, recent admission to the hospital for right lower extremity cellulitis after a knee injury. Patient was discharged home on Zyvox after completing a course of IV antibiotics and had clinical improvement during his admission last week. He states that the symptoms have markedly improved but not fully resolved. He is still having some swelling in his knee and right lower extremity. He had Doppler DVT study that was negative just 9 days ago. Compliant with his Eliquis without any missed dosages. Almost no his antibiotic course. Denies any systemic features such as fever, chills. He has no fever here and he has normal vital signs aside from stable hypertension. His examination is very reassuring and does not appear to be an active or worsening cellulitis at this time. Normal range of motion. Right lower extremity has some pretibial edema as well as suprapatellar edema versus effusion and some very minor erythema but no overlying overt signs of cellulitis, dimpling, redness streaking or any open wounds. Not warm to the touch and no pain with palpation. No crepitus with palpation. Will evaluate with laboratory studies such as a CBC, BMP, lactic acid, ESR and CRP. Patient likely can be discharged home with PCP follow-up to make sure that his swelling resolves with time and compression and completion of his oral antibiotic course outpatient. X-rays will also be obtained to rule out any kind of osseous abnormality or deep tissue infection. Patient's laboratory studies are reassuring. No signs of leukocytosis, CRP is negative, ESR is down trending from previous, normal BMP. Patient's x-rays do not show any signs of osteomyelitis. X-ray of the knee shows no fractures dislocations but there is some degenerative disease as well as soft tissue swelling consistent with exam. His tib-fib x-ray shows soft tissue swelling but no fractures dislocations or osseous process. Patient's workup was reassuring and he can be safely discharged with follow-up with his primary care provider and completion of his oral antibiotics outpatient. Patient given return precautions and discharged. Lab Data 02/08/25 01:06 02/08/25 01:06 Labs: Lab Results 02/08/25 Range/Units 01:06 WBC 6.2 (4.5-10.0) K/mm3 RBC 4.55 L (4.6-6.20) M/mm3 Hgb 12.9 L (14.0-18.0) g/dL Hct 40.9 L (42.0-52.0) % MCV 89.9 (80-100) fl MCH 28.4 (26-34) pg MCHC 31.5 L (32-36) g/dl RDW 13.9 (11.5-14.5) % Plt Count 187 (150-375) k/mm3 MPV 10.5 H (7.4-10.4) fl Immature Gran % (Auto) 0.3 (0-0.5) % Neut % (Auto) 61.9 (45.5-73.1) % Lymph % (Auto) 13.5 L (18.3-44.2) % [place] % (Auto) 14.4 H (2.6-8.5) % Eos % (Auto) 9.1 H (0-4.4) % Baso % (Auto) 0.8 (0.2-1.2) % Lymph # (Auto) 0.84 L (0.9-3.2) K/mm3 [place] # (Auto) 0.9 H (0.1-0.6) K/mm3 Eos # (Auto) 0.6 H (0-0.3) K/mm3 Baso # (Auto) 0.1 (0.0-0.1) K/mm3 Abs Immat Gran (auto) 0.02 (0.00-0.031) K/mm3 Absolute Neuts (auto) 3.9 (1.3-6.7) K/mm3 Absolute Nucleated RBC 0.000 (0.0-0.012) K/mm3 Nucleated RBC % 0.0 (0.0-0.2) % ESR 49 H (0-20) mm/hr Sodium 141 (137-145) mmol/L Potassium 3.6 (3.4-5.0) mmol/L Chloride 107 (98-107) mmol/L Carbon Dioxide 21 L (22-30) mmol/L Anion Gap 13 H (4-12) mmol/L BUN 15 D (9-20) mg/dL Creatinine 0.85 (0.7-1.3) mg/dL Estim Creat Clear Calc 92 ml/min Estimated GFR > 60 (59 - ) Glucose 98 (65-110) mg/dL Lactic Acid 1.0 (0.7-2.0) mmol/L Calcium 9.2 (8.4-10.2) mg/dL C-Reactive Protein 0.6 (<1.0) mg/dL Discharge Plan Discharge Clinical Impression: Localized swelling of right lower extremity, Cellulitis of right leg Clinical Impression: (Ruled Out): Sinus drainage Patient Disposition: Home Condition: Stable Instructions: Antibiotic Form, Leg Edema (ED) Additional Instructions: Your laboratory studies are all reassuring, no signs of active infection, inflammatory markers her down trending from her previous hospital admission. X- rays do not show any infection of the bones and no acute process other than the swelling. It seems like your cellulitis is significantly improved from previous and it will take some time for the swelling to fully resolve but no urgent or emergent concerns at this time. Follow-up with regular primary care provider as well as complete your course of antibiotics. Return with any emergent concerns. Patient Language: Malay Prescriptions: No Action boarding pass 1 cap PO DAILY zolpidem 10 mg tablet 10 mg PO QHS Qty: 90 0RF mupirocin [Centany] 2 % ointment 1 applic topical TID Qty: 22 1RF metoprolol succinate 25 mg tablet extended release 24 hr 25 mg PO DAILY Qty: 90 1RF Rx Instructions: Please D/C the Toprol 12.5 Thank you! linezolid 600 mg Tablet 600 mg PO Q12HR Qty: 15 0RF cholecalciferol (vitamin D3) [Vitamin D3] 50 mcg (2,000 unit) Tablet 2,000 unit PO DAILY rosuvastatin 20 mg tablet See Rx Instructions .ROUTE .COMPLEX Qty: 90 1RF Dose Instruction: TAKE 1 TABLET BY MOUTH DAILY Rx Instructions: TAKE 1 TABLET BY MOUTH DAILY Eliquis 5 mg tablet 5 mg PO BID Qty: 180 0RF Rx Instructions: Please start 5mg po bid once You have finished 10mg tablets. Meaning after one week. lorazepam 1 mg tablet 1 mg PO TID PRN (Reason: anxiety) Qty: 40 0RF icosapent ethyl 1 gram capsule See Rx Instructions .ROUTE .COMPLEX Qty: 360 1RF Dose Instruction: TAKE 2 CAPSULES BY MOUTH TWICE DAILY Rx Instructions: TAKE 2 CAPSULES BY MOUTH TWICE DAILY Follow-up/Referrals: Corey Angel MD [Primary Care Provider] - Time of Disposition: 04:57
--- OUTSIDE RECORDS SUMMARY | 2025-02-08 00:45 | XMS_ITS | Encounter Summary ---
Author Organization [facility] Address [facility] [place] [address] Care Team Providers Care Anesthesiologist Name Role Phone Corey Angel MD Primary Care Provider Encounter Details Date Type Department Care Team (Late st Contact Info) Description 12/14/2022 [employer] Message Enc [facility] [address] [address] Mychart, [facility] Provider Stress test Social History [...] on filedocumented in this encounter Care Teams Anesthesiologist Relationship Specialty Start Date End Date Corey Angel MD [address] [place] [id number] PCP - General INTERNAL MEDICINE 02/25/21 documented as of this encounter
--- OUTSIDE RECORDS SUMMARY | 2025-02-08 00:45 | XMS_ITS | Clinical Summary ---
Author Organization [facility] Address [address] [address] Phone Care Team Providers Care Foreign Language Instructor Name Role Phone Corey Angel MD Primary Care Provider Uzair Dye DO Unavailable [phone] Allergies No known active allergies Medications [...] Comments Blood Pressure 120/90 10/12/2016 12:23 PM [employer] Pulse 79 10/12/2016 12:23 PM [employer] Temperature 36.1 C (96.9 F) 10/12/2016 12:23 PM [employer] Respiratory Rate 14 10/12/2016 12:23 PM [employer] Oxygen Saturation 94% 10/12/2016 12:23 PM [employer] Inhaled Oxygen Concentration - - Weight 117.5 kg (259 lb) 10/12/2016 12:23 PM [employer]OT MA[employer] Height 177.8 cm (5' 10 ) 10/12/2016 12:23 PM [employer] Body Mass Index 37.16 10/12/2016 12:23 PM [employer]OT MA[employer] Plan of Treatment Health Maintenance Due Date [...] Recently Relevant to Health Maintenance Insurance MEDICARE [employer] Care Teams Foreign Language Instructor Relationship Specialty Start Date End Date Corey Angel MD PCP - General Internal Medicine 03/31/16 Uzair Dye DO Gastroenterology 03/31/16
--- OUTSIDE RECORDS SUMMARY | 2025-02-08 00:46 | XMS_ITS | Encounter Summary ---
Author Organization [facility] Healthcare Address [address] [place] [address] Care Team Providers Care Hogshead Inspector Name Role Phone Corey Angel MD Primary Care Provider [phone] Clem Thomson MD Unavailable [phone] Harman Morales MD Unavailable [phone] James Robert DO Unavailable [phone] Reason for Visit * Reason Comments Leg Swelling Encounter Details Date Type Department Care Team (Late st Contact Info) Description 02/07/2025 4:36 PM CDT - 02/07/2025 6:50 PM CDT Emergency [facility] Emergency Department [address] [place] [id number] Discharge Disposition: Left Against Medical Advice Social History Tobacco Use Types Packs/Day Years [...] making you feel afraid or unsafe? 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 Not on file Not on file Not o n file documented as of this encounter Last Filed Vital Signs Vital Sign Reading Time Taken Comments Blood Pressure 113/89 02/07/2025 4:59 PM CDT Pulse 102 02/07/2025 4:59 PM CDT Temperature 36.7 C (98.1 F) 02/07/2025 4:59 PM CDT Respiratory Rate 20 02/07/2025 4:59 PM CDT Oxygen Saturation 96% 02/07/2025 4:59 PM CDT Inhaled Oxygen Concentration - - Weight 125.6 kg (276 lb 14.4 oz) 02/07/2025 4:59 PM CDT Height 182.9 cm (6') 02/07/2025 4:59 PM CDT Body Mass Index 37.55 02/07/2025 4:59 PM CDT documented in this encounter Medications at Time of Discharge ascorbic acid (vitamin C) 1,000 mg tablet 08/07/2024 cholecalciferol 400 unit capsuleIndications :supplement Take 600 Units by mouth every morning Eliquis 5 mg tablet 10/08/[address] (NexIUM) 20 mg capsuleIndications :Treatment of Non-Bleeding Gastric Disorder,gerd Take 1 capsule (20 mg total) by mouth daily before breakfast icosapent ethyL (VASCEPA) 1 gram capsuleIndications :hypertriglyceride dean Take 2 capsules (2 g total) by mouth 2 (two) times a day 05/23/2021 LORazepam (ATIVAN) 0.5 mg tablet Take 1 tablet (0.5 mg total) by mouth every 6 (six) hours as needed for anxiety (prior to MRI) 1 tablet 06/29/2024 metoprolol XL (TOPROL-XL) 25 mg extended release tabletIndications: hypertension,AAA Take 1 tablet (25 mg total) by mouth every morning rosuvastatin (CRESTOR) 20 mg tabletIndications: hyperlipidemia Take 1 tablet (20 mg total) by mouth nightly 04/21/2021 semaglutide (WEGOVY) 0.25 mg/0.5 mL auto-injectorIndic ations:Coronary artery disease involving [employer] [employer] heart without angina pectoris, unspecified vessel or lesion type,Body mass index (BMI) of 39.0 to 39.9 in adult,High risk medication use Inject 0.25 mg under the skin every 7 days Plan to increase dose after 1-2 months 2 mL 1 01/08/2025 tamsulosin (FLOMAX) 0.4 mg extended release capsuleIndications :Prostate cancer (HCC) Take 1 capsule (0.4 mg total) by mouth 2 (two) times a day 180 capsule 10/05/2024 telmisartan (MICARDIS) 20 mg tabletIndications: Essential hypertension Take 1 tablet (20 mg total) by mouth daily 90 tablet 3 01/08/2025 documented as of this encounter Discharge Disposition Disposition Code Departure Means Destination Left Against Medical Advice documented in this encounter ED Notes * Deborah Cummings RN - 02/07/2025 4:55 PM CDT Pt reports that he was at [facility] and they referred him back to the ER for his right leg cellulitis. Pt currently taking linezolid 600 mg bid. Pt reports he is on his last pill. Pt denies fever/chills. Pt currently going through radiation for prostate cancer. documented in this encounter Plan of Treatment Not on file documented as of this encounter Procedures Procedure Name Priority Date/Time Associated Diagnosis Comments LACTATE STAT 02/07/2025 5:07 PM CDT EGFR STAT 02/07/2025 5:07 PM CDT DIFFERENTIAL AUTO STAT 02/07/2025 5:0 7 PM CDT CBC WITH AUTO DIFFERENTIAL STAT 02/07/2025 5:07 PM CDT COMPREHENSIVE METABOLIC PANEL STAT 02/07/2025 5:07 PM CDT documented in this encounter Results * eGFR (02/07/2025 5:07 PM CDT) eGFR >90 >=60 mL/min/1. 73 [...] Current interpretive data was last reviewed 2021. Testing performed by: [address] [id number] Blood 02/07/2025 5:07 PM CDT 02/07/2025 5:11 PM CDT us Ilene Rodgers NP LAB BLOOD ORDERABLES Final Resul t [facility] [address] [facility] Department [place] [address] * (ABNORMAL) Differential, auto (02/07/2025 5:07 PM CDT) Pathologist [facility] Neutrophil abs 4.28 1.50 - 6.50 K/cumm Comment:Testing performed by : [address] [address] Imm gran abs 0.03 0.00 - 0.10 K/cumm [facility] Comment:Testing performed by : [address] [address] Lymphocyte abs 0.74(L) 0.80 - 3.30 K/cumm [facility] Comment:Testing performed by : [address], [place]., [address] Monocyte abs 0.91(H) 0.20 - 0.80 K/cumm [facility] Comment:Testing performed by : [address], [place]., [address] Eosinophil abs 0.39 0.00 - 0.50 K/cumm [facility] Comment:Testing performed by : [address], [place]., [address] Basophil abs 0.03 0.00 - 0.10 K/cumm [facility] Comment:Testing performed by : [address] [address] Neutrophil pct 67.0 % [facility] Comment: Interpretive Data Percent cell count reference ranges are not reported, since discordance with absolute values may lead to misinterpretation of CBC data. Current Interpretive Data was last revised on 2018. Testing performed by: [address] [address] Imm gran pct 0.5 % [facility] Comment: Interpretive Data Percent cell count reference ranges are not reported, since discordance with absolute values may lead to misinterpretation of CBC data. Current Interpretive Data was last revised on 2018. Testing performed by: [address] [address] Lymphocyte pct 11.6 % [facility] Comment: Interpretive Data Percent cell count reference ranges are not reported, since discordance with absolute values may lead to misinterpretation of CBC data. Current Interpretive Data was last revised on 2018. Testing performed by: [address] [address] Monocyte pct 14.3 % [facility] Comment: Interpretive Data Percent cell count reference ranges are not reported, since discordance with absolute values may lead to misinterpretation of CBC data. Current Interpretive Data was last revised on 2018. Testing performed by: [address] [address] Eosinophil pct 6.1 % [facility] Comment: Interpretive Data Percent cell count reference ranges are not reported, since discordance with absolute values may lead to misinterpretation of CBC data. Current Interpretive Data was last revised on 2018. Testing performed by: [address] [address] Basophil pct 0.5 % [facility] Comment: Interpretive Data Percent cell count reference ranges are not reported, since discordance with absolute values may lead to misinterpretation of CBC data. Current Interpretive Data was last revised on 2018. Testing performed by: [address] [address] Blood 02/07/2025 5:07 PM CDT 02/07/2025 5:11 PM CDT Ilene Rodgers LAB BLOOD ORDERABLES Final Resul t Performing Organization Address [facility] Co de Phone Number [place] [phone] [facility] [place] [address] * Lactate (02/07/2025 5:07 PM CDT) Lactate 1.6 0.7 - 2.0 mmol/L Comment:Testing performed by : [address] [address] Blood 02/07/2025 5:07 PM CDT 02/07/2025 5:11 PM CDT Ilene Vishal LAB BLOOD ORDERABLES Final Resul t Performing Organization Address City/[facility] Co de Phone Number [address] [address] * (ABNORMAL) Comprehensive metabolic panel (02/07/2025 5:07 PM CDT) Sodium 139 135 - 145 mmol/L Comment:Testing performed by : [address] [address] Potassium, pl 3.8 3.3 - 4.9 mmol/L [facility] Comment:Testing performed by : [address] [address] Chloride 104 97 - 110 mmol/L [facility] Comment:Testing performed by : [address] [address] CO2 21(L) 22 - 32 mmol/L [facility] Comment:Testing performed by : [address] [address] Anion gap 14 2 - 15 mmol/L [facility] Comment:Testing performed by : [address] [address] BUN 14 6 - 25 mg/dL [facility] Comment:Testing performed by : [address], [place]., [address] Creatinine 0.70(L) 0.80 - 1.30 mg/dL [facility] Comment:Testing performed by : [address] [address] Glucose 115 70 - 199 mg/dL [facility] Comment: Interpretive Data Fasting glucose >/= [...] Current interpretive data was last revised 2022. Testing performed by: [address] [address] Calcium 9.4 8.5 - 10.3 mg/dL [facility] Comment:Testing performed by : [address] [address] Bilirubin, total 0.3 0.1 - 1.2 mg/dL [facility] Comment:Testing performed by : [address] [address] Protein, pl 7.7 6.5 - 8.5 g/dL [facility] Comment:Testing performed by : [address] [address] Albumin 4.0 3.5 - 5.0 g/dL [facility] Comment:Testing performed by : [address] [address] Alk phos 144(H) 40 - 130 Units/L [facility] Comment:Testing performed by : [address] [address] ALT 15 7 - 55 Units/L [facility] Comment:Testing performed by : [address] [address] AST 23 10 - 50 Units/L [facility] Comment:Testing performed by : [address] [address] Blood 02/07/2025 5:07 PM CDT 02/07/2025 5:11 PM CDT us Ilene Rodgers NP LAB BLOOD ORDERABLES Final Resul t [facility] Department [place] [address] * CBC with auto differential (02/07/2025 5:07 PM CDT) WBC 6.38 3.80 - 9.90 K/cumm Comment:Testing performed by : [address] [address] Hgb 13.0 13.0 - 17.5 g/dL [facility] Comment:Testing performed by : [address] [address] Hct 39.2 38.9 - 50.3 % [facility] Comment:Testing performed by : [address] [address] Plt 183 150 - 400 K/cumm [facility] Comment:Testing performed by : [address] [address] MPV 10.4 9.1 - 12.3 fL [facility] Comment:Testing performed by : [address] [address] RBC 4.53 4.30 - 5.80 M/cumm [facility] Comment:Testing performed by : [address] [address] MCV 86.5 81.3 - 96.4 fL [facility] Comment:Testing performed by : [address] [address] MCH 28.7 27.1 - 33.3 pg [facility] Comment:Testing performed by : [address] [address] MCHC 33.2 32.3 - 35.7 g/dL [facility] Comment:Testing performed by : [address] [address] RDW CV 13.8 11.1 - 14.9 % [facility] Comment:Testing performed by : [address] [address] RDW SD 43.1 35.7 - 48.1 fL [facility] Comment:Testing performed by : [address] [address] NRBC abs 0.00 0.00 - 0.01 K/cumm [facility] Comment:Testing performed by : [address] [address] Blood 02/07/2025 5:07 PM CDT 02/07/2025 5:11 PM CDT us Ilene Rodgers PAYROLL TAX ANALYST LAB BLOOD ORDERABLES Final Resul t Performing Organization Address City/State/[facility] Co de Phone Number [facility] [address] [facility] Department [place] [address] documented in this encounter Visit Diagnoses Not on filedocumented in this encounter Care Teams Hogshead Inspector Relationship Specialty Start Date End Date Corey Angel MD [address] [facility] [address] [facility] [place], [place] [id number] PCP - General Internal Medicine 06/18/21 Clem Thomson MD [address] [place] [address] Referring Physician Urology 06/14/24 Harman Morales MD [address] [place] [address] [address] [place] [address] Radiation Oncologist Radiation Oncology 06/22/24 James Robert DO [address] [place] [address] MEDICAL ONCOLOGY, [facility] [address] [place], [place] [id number] Medical Oncologist/Door Furring Installer Hematology and Oncology 07/12/24 documented as of this encounter
--- OUTSIDE RECORDS SUMMARY | 2025-02-08 00:46 | XMS_ITS | Referral Summary ---
Author Organization [facility] Address [address] [place] [address] Care Team Providers Care Cold Header Operator Name Role Phone Corey Angel MD Primary Care Provider Nallely Thomson MD Unavailable Harman Morales MD Unavailable [phone] James Robert DO Unavailable [phone] Encounters Date Type Department Care Team Description 02/07/2025 4:36 PM CDT - 02/07/2025 6:50 PM CDT Emergency [facility] Emergency Department [address] [place] [address] Discharge Disposition: Left Against Medical Advice 02/07/2025 3:30 PM CDT Office Visit [facility] Medical Office Building 2 Radiation Oncology [address] [place] [address] Simon Garcia PA Prostate cancer (HCC) (Primary Dx); Personal history of radiation therapy 02/04/2025 2:50 PM CDT - 02/04/2025 11:59 PM CDT Hospital Encounter [facility] [id number] [place] [address] Prostate cancer (HCC) Discharge Disposition: Discharge to home or self care 02/04/2025 3:00 PM CDT Lab [facility] Outpatient Lab at [address] [phone] Elevated PSA (Primary Dx) 01/28/2025 Orders Only [facility] Medical Office Building 2 Radiation Oncology [address] [place] [address] Simon Garcia PA Prostate cancer (HCC) (Primary Dx) 01/09/2025 Telephone [facility] Cardiology [facility] Advanced Medicine 8th [place] [address] [place] [address] Albino Yanez MD 01/08/2025 Telephone [facility] Cardiology [facility] 8th [place] [address] [place] [phone] Kim Sewell 01/08/2025 Documentation [facility] Cardiology [facility] Floor 1, [address] [place] [phone] Sara Hendrix RN 01/08/2025 11:00 AM CDT Office Visit [facility] Cardiology [address] [place] [address] Floor 1, [address] [place] [phone] Albino Yanez MD Coronary artery disease involving del[place]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, unspecified vessel or lesion type (Primary Dx); Body mass index (BMI) of 39.0 to 39.9 in adult; High risk medication use; Essential hypertension 01/07/2025 12:44 PM CDT - 01/07/2025 11:59 PM CDT Hospital Encounter [facility] Vascular Lab [address] [place] [address] Pain in right foot; Swelling of right foot Discharge Disposition: Discharge to home or self care 01/01/2025 Telephone [facility] Medical Office Building 2 Radiation Oncology [address] [place] [address] Jeddito Lucila 12/31/2024 Orders Only [facility] Medical Office Building 2 Radiation Oncology [address] [place] [address] Simon Garcia PA Pain in right foot (Primary Dx); Swelling of right foot 12/20/2024 10:30 AM CDT Ancillary Procedure [facility] Cardiology [address] [place] [address] Palpitations 12/06/2024 1:15 PM CDT Office Visit [facility] On[facility] [address] [place] [address] [address] [place] [phone] James Robert DO Prostate cancer (HCC) (Primary Dx) 11/27/2024 1:30 PM LEGAL MEDIATOR Office Visit [facility] Medical Office Building 2 Radiation Oncology [address] [place] [address] Simon Garcia PA Prostate cancer (HCC) (Primary Dx); Personal history of radiation therapy 11/22/2024 3:10 PM LEGAL MEDIATOR - 11/22/2024 11:59 PM LEGAL MEDIATOR Hospital Encounter [address] [address] Prostate cancer (HCC) Discharge Disposition: Discharge to home or self care 11/22/2024 3:00 PM LEGAL MEDIATOR Lab [facility] Outpatient Lab at [address] [phone] Prostate cancer (HCC) (Primary Dx) 11/19/2024 Telephone [facility] Cardiology [facility] 8th [place] [address] [place] [address] Dana López 11/16/2024 Telephone [facility] Oncology [address] [place] [address] [address] [place] [phone] Sherin Armenta, TELEVISION STATION MANAGER from Last 3 Months Allergies No known active allergies Medications esomeprazole DR (NexIUM) 20 mg capsuleIndicatio ns:Treatment of Non-Bleeding Gastric Disorder,gerd Take 1 capsule (20 mg total) by mouth daily before breakfast Active rosuvastatin (CRESTOR) 20 mg tabletIndication s:hyperlipidemia Take 1 tablet (20 mg total) by mouth nightly 1 Active icosapent ethyL (VASCEPA) 1 gram capsuleIndicatio ns:hypertriglyce ridemia Take 2 capsules (2 g total) by mouth 2 (two) times a day 1 Active cholecalciferol 400 unit capsuleIndicatio ns:supplement Take [...] (prior to MRI) 1 tablet 4 Active Additional Information Patient not taking.Reported on 12/06/2024 ascorbic acid (vitamin C) 1,000 mg tablet 4 Active tamsulosin (FLOMAX) 0.4 mg extended release capsuleIndicatio ns:Prostate cancer (HCC) Take 1 capsule (0.4 mg total) by mouth 2 (two) times a day 180 capsule 5 Active Additional Information Patient taking differently:0.4 mg oralDaily, Reported on 01/08/2025 Eliquis 5 mg tablet 5 Active semaglutide (WEGOVY) 0.25 mg/0.5 mL auto-injectorInd ications:Coronar y artery disease involving [place]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, unspecified vessel or lesion type,Body mass index (BMI) of 39.0 to 39.9 in adult,High risk medication use Inject 0.25 mg under the skin every 7 days Plan to increase dose after 1-2 months 2 mL 1 5 Active telmisartan (MICARDIS) 20 mg tabletIndication s:Essential hypertension Take 1 tablet (20 mg total) by mouth daily 90 tablet 3 5 01/09/20 26 Active Active Problems Problem Noted Date Diagnosed Date Personal history of radiation therapy 11/15/2024 Prostate cancer 05/02/2024 Cancer Staging:Clinical stage from 06/28/2024:Stage IIIB(cT3b, cN0, cM0, PSA: 9.1, Grade Group: 2) - Signed by Harman Morales MD on 06/28/2024 Elevated PSA 12/19/2023 Ascending aortic aneurysm 06/19/2021 Squamous 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 - Left 05/30/2018 Knee pain 04/22/2016 Immunizations [...] on file Legal Sex Male 2:49 AM LEGAL MEDIATOR Gender Identity Male 05/22/2018 10:57 AM CDT Sexual Orientation Straight 11/03/2020 7: 01 PM LEGAL MEDIATOR Occupation Industry Job Start Date Job End Date working Not on file Not on file 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 Not on [...] Mass Index 37.55 02/07/2025 4:59 PM CDT Plan of Treatment Not on file Procedures Procedure Name Priority Date/Time Associated Diagnosis Comments EGFR STAT 02/07/2025 5:07 PM CDT DIFFERENTIAL AUTO STAT 02/07/2025 5:0 7 PM CDT LACTATE STAT 02/07/2025 5:07 PM CDT COMPREHENSIVE METABOLIC PANEL STAT 02/07/2025 5:07 PM CDT CBC WITH AUTO DIFFERENTIAL STAT 02/07/2025 5:07 PM CDT TOTAL TESTOSTERONE Routine 02/04/2025 2: 50 PM CDT Prostate cancer (HCC) PSA DIAGNOSTIC Routine 02/04/2025 2:50 PM CDT Prostate cancer (HCC) US VEIN DUPLEX LOWER EXTREMITY RIGHT LIMITED Schedule Routine, Read Routine (OP Routine) 01/07/2025 1:27 PM CDT Pain in right foot Swelling of right foot HOLTER MONITOR 48 HR Routine 12/20/2024 10:23 AM CDT Palpitations TOTAL TESTOSTERONE Routine 11/22/2024 3: 10 PM LEGAL MEDIATOR Prostate cancer (HCC) PSA DIAGNOSTIC Routine 11/22/2024 3:10 PM LEGAL MEDIATOR Prostate cancer (HCC) from Last 3 Months Results * Lactate (02/07/2025 5:07 PM CDT) Lactate 1.6 0.7 - 2.0 mmol/L Comment:Testing performed by : [facility], [address] [place] [address]., [address] Blood 02/07/2025 5:07 PM CDT 02/07/2025 5:11 PM CDT us Ilene Rodgers NP LAB BLOOD ORDERABLES Final Resul t [facility] [address] [facility] Department [place] [address] * eGFR (02/07/2025 5:07 PM CDT) eGFR [...] was last reviewed 2021. Testing performed by: [address] [address] Blood 02/07/2025 5:07 PM CDT 02/07/2025 5:11 PM CDT us Ilene Rodgers NP LAB BLOOD ORDERABLES Final Resul t [facility] [address] [facility] Department [place] [address] * (ABNORMAL) Differential, auto (02/07/2025 5:07 PM CDT) Pathologist [facility] Neutrophil abs 4.28 1.50 - 6.50 K/cumm Comment:Testing performed by : [address] [address] Imm gran abs 0.03 0.00 - 0.10 K/cumm [facility] Comment:Testing performed by : [address] [address] Lymphocyte abs 0.74(L) 0.80 - 3.30 K/cumm [facility] Comment:Testing performed by : [address], [place]., [address] Monocyte abs 0.91(H) 0.20 - 0.80 K/cumm [facility] Comment:Testing performed by : [address], [place]., [address] Eosinophil abs 0.39 0.00 - 0.50 K/cumm [facility] Comment:Testing performed by : [address], [place]., [address] Basophil abs 0.03 0.00 - 0.10 K/cumm [facility] Comment:Testing performed by : [address] [address] Neutrophil pct 67.0 % [facility] Comment: Interpretive Data Percent cell count reference ranges are not reported, since discordance with absolute values may lead to misinterpretation of CBC data. Current Interpretive Data was last revised on 2018. Testing performed by: [address] [address] Imm gran pct 0.5 % [facility] Comment: Interpretive Data Percent cell count reference ranges are not reported, since discordance with absolute values may lead to misinterpretation of CBC data. Current Interpretive Data was last revised on 2018. Testing performed by: [address] [address] Lymphocyte pct 11.6 % [facility] Comment: Interpretive Data Percent cell count reference ranges are not reported, since discordance with absolute values may lead to misinterpretation of CBC data. Current Interpretive Data was last revised on 2018. Testing performed by: [address] [address] Monocyte pct 14.3 % [facility] Comment: Interpretive Data Percent cell count reference ranges are not reported, since discordance with absolute values may lead to misinterpretation of CBC data. Current Interpretive Data was last revised on 2018. Testing performed by: [address] [address] Eosinophil pct 6.1 % [facility] Comment: Interpretive Data Percent cell count reference ranges are not reported, since discordance with absolute values may lead to misinterpretation of CBC data. Current Interpretive Data was last revised on 2018. Testing performed by: [address] [address] Basophil pct 0.5 % [facility] [place] Comment: Interpretive Data Percent cell count reference ranges are not reported, since discordance with absolute values may lead to misinterpretation of CBC data. Current Interpretive Data was last revised on 2018. Testing performed by: [address] [address] Blood 02/07/2025 5:07 PM CDT 02/07/2025 5:11 PM CDT us Ilene Rodgers NP LAB BLOOD ORDERABLES Final Resul t [facility] [place] [facility] Department [place] [address] * CBC with auto differential (02/07/2025 5:07 PM CDT) WBC 6.38 3.80 - 9.90 K/cumm Comment:Testing performed by : [address] [address] Hgb 13.0 13.0 - 17.5 g/dL [facility] [place] Comment:Testing performed by : [address] [address] Hct 39.2 38.9 - 50.3 % [facility] [place] Comment:Testing performed by : [address] [address] Plt 183 150 - 400 K/cumm [facility] [place] Comment:Testing performed by : [address] [address] MPV 10.4 9.1 - 12.3 fL [facility] [place] Comment:Testing performed by : [address] [address] RBC 4.53 4.30 - 5.80 M/cumm [facility] [place] Comment:Testing performed by : [address] [address] MCV 86.5 81.3 - 96.4 fL [facility] [place] Comment:Testing performed by : [address] [address] MCH 28.7 27.1 - 33.3 pg [facility] [place] Comment:Testing performed by : [address] [address] MCHC 33.2 32.3 - 35.7 g/dL [facility] [place] Comment:Testing performed by : [address] [address] RDW CV 13.8 11.1 - 14.9 % [facility] [place] Comment:Testing performed by : [address] [address] RDW SD 43.1 35.7 - 48.1 fL [facility] [place] Comment:Testing performed by : [address] [address] NRBC abs 0.00 0.00 - 0.01 K/cumm [facility] [place] Comment:Testing performed by : [address] [address] Blood 02/07/2025 5:07 PM CDT 02/07/2025 5:11 PM CDT Ilene Rodgers NP LAB BLOOD ORDERABLES Final Resul t [facility] [address] [facility] Department [place] [address] * (ABNORMAL) Comprehensive metabolic panel (02/07/2025 5:07 PM CDT) Sodium 139 135 - 145 mmol/L Comment:Testing performed by : [address] [address] Potassium, pl 3.8 3.3 - 4.9 mmol/L [facility] [place] Comment:Testing performed by : [address] [address] Chloride 104 97 - 110 mmol/L [facility] [place] Comment:Testing performed by : [address] [address] CO2 21(L) 22 - 32 mmol/L [facility] [place] Comment:Testing performed by : [address] [address] Anion gap 14 2 - 15 mmol/L [facility] Comment:Testing performed by : [address] [address] BUN 14 6 - 25 mg/dL [facility] Comment:Testing performed by : [address], [place]., [address] Creatinine 0.70(L) 0.80 - 1.30 mg/dL [facility] Comment:Testing performed by : [address] [address] Glucose 115 70 - 199 mg/dL [facility] Comment: Interpretive Data Fasting glucose >/= 126 [...] was last revised 2022. Testing performed by: [address] [address] Calcium 9.4 8.5 - 10.3 mg/dL [facility] Comment:Testing performed by : [address] [address] Bilirubin, total 0.3 0.1 - 1.2 mg/dL [facility] Comment:Testing performed by : [address] [address] Protein, pl 7.7 6.5 - 8.5 g/dL [facility] Comment:Testing performed by : [address] [address] Albumin 4.0 3.5 - 5.0 g/dL [facility] Comment:Testing performed by : [address] [address] Alk phos 144(H) 40 - 130 Units/L [facility] Comment:Testing performed by : [address] [place] [address] ALT 15 7 - 55 Units/L [facility] Comment:Testing performed by : [address] [address] AST 23 10 - 50 Units/L [facility] Comment:Testing performed by : [facility], [address] [place] [address]., [address] Blood 02/07/2025 5:07 PM CDT 02/07/2025 5:11 PM CDT Ilene Rodgers SCANNING MANAGER LAB BLOOD ORDERABLES Final Resul t [facility] [address] [facility] Department [place] [address] * (ABNORMAL) Total testosterone (02/04/2025 2:50 PM CDT) Testosterone <3(L) 193 - 740 ng/dL Blood 02/04/2025 2:50 PM CDT 02/04/2025 10:21 PM CDT Simon Garcia PA LAB BLOOD ORDERABLES Final Result [facility] [address] Department [place] [address] * PSA diagnostic (02/04/2025 2:50 PM CDT) PSA-Total <0.01 <=6.20 ng/mL Comment: Interpretive Data [...] Current interpretive data last revised 22. Blood 02/04/2025 2:50 PM CDT 02/04/2025 10:21 PM CDT us Simon TAN LAB BLOOD ORDERABLES Final Result [facility] [place] [address] Department [place] [address] * US Vein Duplex Lower Extremity Right Limited, Unilateral (01/07/2025 1:27 PM CDT) Anatomical Region Laterality Modality Vascular Right Ultrasound 01/07/2025 1:07 PM CDT Narrative 01/08/2025 12:01 PM CDT Lower Extremity Venous Report Patient Name: NALLELY MEJIA S : 1950 (74y 1m) Gender: M Study Date: 01/07/2025 01:07:40 PM Health Physics Technician: Tracy Guzman RDPR,RVT Order Provider: SIMON GARCIA Quality: Adequate Ref [...] 01/08/2025 11:50:35 AM CDT Procedure Note Connor Forutne MD - 01/08/2025 Lower Extremity Venous Report Patient Name: NALLELY MEJIA S : 1950 (74y 1m) Gender: M Study Date: 01/07/2025 01:07:40 PM Health Physics Technician: Tracy Guzman RDMS,RVT Order Provider: SIMON GARCIA [...] phy Narrative 12/26/2024 5:05 PM CDT AMBULATORY CERTIFIED NURSE MIDWIFE REPORT Patient Name: Nallely Mejia Date of [...] was used to complete this document, therefore, electric screw driver operator variances may occur. Sushant Madison MD, [facility] 12/26/24 Procedure Note Sushant Madison MD - 12/26/2024 AMBULATORY CERTIFIED NURSE MIDWIFE REPORT Patient Name: Nallely Mejia Date of [...] software was used to complete this document, therefore,electric screw driver operator variances may occur. Sushant Madison MD, [facility] 12/26/24 Corey Angel MD [facility] PROCEDURE S Final Result * (ABNORMAL) Total testosterone (11/22/2024 3:10 PM LEGAL MEDIATOR) Testosterone <3(L) 193 - 740 ng/dL Blood 11/22/2024 3:10 PM LEGAL MEDIATOR 11/22/2024 9:25 PM LEGAL MEDIATOR Simon TAN LAB BLOOD ORDERABLES Final Result [facility] [address] Department [place] [address] * PSA diagnostic (11/22/2024 3:10 PM LEGAL MEDIATOR) PSA-Total <0.01 <=6.20 ng/mL Comment: Interpretive Data [...] Current interpretive data last revised 22. Blood 10/28 [id number]|2025-02-08 00:46:00|2025-02-08 00:45:00|XMS_ITS|[employer]|External Medical Summaries|[id number]|" Oncology Summary Created on: February 08, 2025 Nallely Mejia : 1950 Sex: Male Author Organization [facility] Address [address] [place] [address] Care Team Providers Care Cold Header Operator Name Role Phone Corey Angel MD Primary Care Provider Nallely Thomson MD Unavailable Harman Morales MD Unavailable [phone] James Robert DO Unavailable [phone] Active Problems Problem Noted Date Diagnosed Date Personal history of radiation therapy 11/15/2024 Prostate cancer 05/02/2024 Cancer Staging:Clinical stage from 06/28/2024:Stage IIIB(cT3b, cN0, cM0, PSA: 9.1, Grade Group: 2) - Signed by Harman Morales MD on 06/28/2024 Elevated PSA 12/19/2023 Ascending aortic aneurysm 06/19/2021 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
--- OUTSIDE RECORDS SUMMARY | 2025-02-08 00:46 | XMS_ITS | Clinical Summary ---
Author Organization [facility] Address [address] [place] [address] Care Team Providers Care Pyrotechnics Press Tender Name Role Phone Corey Angel MD Primary Care Provider [phone] Nallely Thomson MD Unavailable Harman Morales MD Unavailable [phone] James Robert DO Unavailable [phone] Allergies No known active allergies Medications esomeprazole [...] mL auto-injectorInd ications:Coronar y artery disease involving [place] heart without angina pectoris, unspecified vessel or [...] Squamous cell carcinoma of skin of left scientology - Left 05/30/2018 Knee pain 04/22/2016 Encounters Date Type Department Care Team Description 02/07/2025 4:36 PM CDT - 02/07/2025 6:50 PM CDT Emergency [facility] Emergency Department [address] [place] [address] Discharge Disposition: Left Against Medical Advice 02/07/2025 3:30 PM CDT Office Visit [facility] Medical Office Building 2 Radiation Oncology [address] [place] [address] Simon Garcia PA Prostate cancer (HCC) (Primary Dx); Personal history of radiation therapy 02/04/2025 3:00 PM CDT Lab [facility] Outpatient Lab at [address] [address] Elevated PSA (Primary Dx) 02/04/2025 2:50 PM CDT - 02/04/2025 11:59 PM CDT Hospital Encounter [address] [address] Prostate cancer (HCC) Discharge Disposition: Discharge to home or self care 01/28/2025 Orders Only [facility] Medical Office Building 2 Radiation Oncology [address] [place] [address] Simon Garcia PA Prostate cancer (HCC) (Primary Dx) 01/09/2025 Telephone [facility] [address] [place] [address] 8th [place] [address] [place] [address] Albino Yanez MD 01/08/2025 11:00 AM CDT Office Visit [facility] Floor 1, [address] [place] [phone] Albino Yanez MD Coronary artery disease involving [place] heart without angina pectoris, unspecified vessel or lesion type (Primary Dx); Body mass index (BMI) of 39.0 to 39.9 in adult; High risk medication use; Essential hypertension 01/08/2025 Telephone [facility] Medicine 8th [place] [address] [place] [phone] Kim Sewell 01/08/2025 Documentation [facility] [address] [facility] Floor 1, [address] [place] [address] Sara Hednrix RN 01/07/2025 12:44 PM CDT - 01/07/2025 11:59 PM CDT Hospital Encounter [facility] Vascular Lab [address] [place] [address] Pain in right foot; Swelling of right foot Discharge Disposition: Discharge to home or self care 01/01/2025 Telephone [facility] Office Building 2 Radiation Oncology [address] [place] [address] Lucila Rodriguez 12/31/2024 Orders Only [facility] Office Building 2 Radiation Oncology [address] [place] [address] Simon Garcia PA Pain in right foot (Primary Dx); Swelling of right foot 12/20/2024 10:30 AM CDT Ancillary Procedure [facility] Cardiology [address] [place] [address] Palpitations 12/06/2024 1:15 PM CDT Office Visit [facility] Oncology [address] [place] [address] [address] [place] [address] James Robert DO Prostate cancer (HCC) (Primary Dx) 11/27/2024 1:30 PM CIRCULATION ASSISTANT Office Visit [facility] Medical Office Building 2 Radiation Oncology [address] [place] [address] Simon Garcia PA Prostate cancer (HCC) (Primary Dx); Personal history of radiation therapy 11/22/2024 3:10 PM CIRCULATION ASSISTANT - 11/22/2024 11:59 PM CIRCULATION ASSISTANT Hospital Encounter [address] [address] Prostate cancer (HCC) Discharge Disposition: Discharge to home or self care 11/22/2024 3:00 PM CIRCULATION ASSISTANT Lab [facility] Outpatient Lab at [address] [address] Prostate cancer (HCC) (Primary Dx) 11/19/2024 Telephone [facility] Cardiology [address] [facility] 8th [place] [address] [place] [address] Dana López 11/16/2024 Telephone [facility] Oncology [address] [address] Sherin Armenta, SEAFOOD FISHERMAN from Last 3 Months Immunizations Immunization Administration [...] on file Legal Sex Male 2:49 AM CIRCULATION ASSISTANT Gender Identity Male 05/22/2018 10:57 AM CDT Sexual Orientation Straight 11/03/2020 7: 01 PM CIRCULATION ASSISTANT Occupation Industry Job Start Date Job End Date working Not on file Not on file 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 Not on file [...] 02/07/2025 4:59 PM CDT Plan of Treatment Health Maintenance Due [...] Additional history exists Prostate Cancer Screening-PSA Discontinued , 11/22/2024, 06/15/2024 Procedures Procedure Name Priority Date/Time [...] TOTAL TESTOSTERONE Routine 11/22/2024 3: 10 PM CIRCULATION ASSISTANT Prostate cancer (HCC) PSA DIAGNOSTIC Routine 11/22/2024 3:10 PM CIRCULATION ASSISTANT Prostate cancer (HCC) from Last 3 Months Results * Lactate (02/07/2025 5:07 PM CDT) Lactate 1.6 0.7 - 2.0 mmol/L Comment:Testing performed by : [facility], [address] [place] [address]., [address] Blood 02/07/2025 5:07 PM CDT 02/07/2025 5:11 PM CDT us Ilene Rodgers NP LAB BLOOD ORDERABLES Final Resul t [facility] [address] [facility] Department [place] [address] * eGFR (02/07/2025 5:07 PM [...] was last reviewed 2021. Testing performed by: [address] [address] Blood 02/07/2025 5:07 PM CDT 02/07/2025 5:11 PM CDT us Ilene Rodgers NP LAB BLOOD ORDERABLES Final Resul t [place] [address] [facility] Department [place] [address] * (ABNORMAL) Differential, auto (02/07/2025 5:07 PM CDT) Neutrophil abs 4.28 1.50 - 6.50 K/cumm Comment:Testing performed by : [address] [address] Imm gran abs 0.03 0.00 - 0.10 K/cumm [facility] Comment:Testing performed by : [address] [address] Lymphocyte abs 0.74(L) 0.80 - 3.30 K/cumm [facility] Comment:Testing performed by : [address] [address] Monocyte abs 0.91(H) 0.20 - 0.80 K/cumm [facility] Comment:Testing performed by : [address] [address] Eosinophil abs 0.39 0.00 - 0.50 K/cumm [facility] Comment:Testing performed by : [address] [address] Basophil abs 0.03 0.00 - 0.10 K/cumm [facility] Comment:Testing performed by : [address] [address] Neutrophil pct 67.0 % [facility] Comment: Interpretive Data Percent cell count reference ranges are not reported, since discordance with absolute values may lead to misinterpretation of CBC data. Current Interpretive Data was last revised on 2018. Testing performed by: [address] [address] Imm gran pct 0.5 % [facility] Comment: Interpretive Data Percent cell count reference ranges are not reported, since discordance with absolute values may lead to misinterpretation of CBC data. Current Interpretive Data was last revised on 2018. Testing performed by: [address] [address] Lymphocyte pct 11.6 % [facility] Comment: Interpretive Data Percent cell count reference ranges are not reported, since discordance with absolute values may lead to misinterpretation of CBC data. Current Interpretive Data was last revised on 2018. Testing performed by: [address] [address] Monocyte pct 14.3 % [facility] Comment: Interpretive Data Percent cell count reference ranges are not reported, since discordance with absolute values may lead to misinterpretation of CBC data. Current Interpretive Data was last revised on 2018. Testing performed by: [address] [address] Eosinophil pct 6.1 % [facility] Comment: Interpretive Data Percent cell count reference ranges are not reported, since discordance with absolute values may lead to misinterpretation of CBC data. Current Interpretive Data was last revised on 2018. Testing performed by: [address] [address] Basophil pct 0.5 % [facility] Comment: Interpretive Data Percent cell count reference ranges are not reported, since discordance with absolute values may lead to misinterpretation of CBC data. Current Interpretive Data was last revised on 2018. Testing performed by: [address] [address] Blood 02/07/2025 5:07 PM CDT 02/07/2025 5:11 PM CDT us Ilene Rodgers NP LAB BLOOD ORDERABLES Final Resul t [facility] [address] [facility] Department [place] [address] * CBC with auto differential (02/07/2025 5:07 PM CDT) WBC 6.38 3.80 - 9.90 K/cumm Comment:Testing performed by : [address] [address] Hgb 13.0 13.0 - 17.5 g/dL [facility] Comment:Testing performed by : [address] [address] Hct 39.2 38.9 - 50.3 % [facility] Comment:Testing performed by : [address] [address] Plt 183 150 - 400 K/cumm [facility] Comment:Testing performed by : [address] [address] MPV 10.4 9.1 - 12.3 fL [facility] Comment:Testing performed by : [address] [address] RBC 4.53 4.30 - 5.80 M/cumm [facility] Comment:Testing performed by : [address] [address] MCV 86.5 81.3 - 96.4 fL [facility] Comment:Testing performed by : [address] [address] MCH 28.7 27.1 - 33.3 pg [facility] Comment:Testing performed by : [address] [address] MCHC 33.2 32.3 - 35.7 g/dL [facility] Comment:Testing performed by : [address] [address] RDW CV 13.8 11.1 - 14.9 % [facility] Comment:Testing performed by : [address] [address] RDW SD 43.1 35.7 - 48.1 fL [facility] [place] Comment:Testing performed by : [address] [address] NRBC abs 0.00 0.00 - 0.01 K/cumm [facility] [place] Comment:Testing performed by : [address] [address] Blood 02/07/2025 5:07 PM CDT 02/07/2025 5:11 PM CDT us Ilene Rodgers NP LAB BLOOD ORDERABLES Final Resul t [facility] [place] [facility] Department [place] [address] * (ABNORMAL) Comprehensive metabolic panel (02/07/2025 5:07 PM CDT) Sodium 139 135 - 145 mmol/L Comment:Testing performed by : [address] [address] Potassium, pl 3.8 3.3 - 4.9 mmol/L [facility] [place] Comment:Testing performed by : [address] [address] Chloride 104 97 - 110 mmol/L [facility] [place] Comment:Testing performed by : [address] [address] CO2 21(L) 22 - 32 mmol/L [facility] [place] Comment:Testing performed by : [address] [address] Anion gap 14 2 - 15 mmol/L [facility] Comment:Testing performed by : [address] [address] BUN 14 6 - 25 mg/dL [facility] [place] Comment:Testing performed by : [address] [address] Creatinine 0.70(L) 0.80 - 1.30 mg/dL [facility] [place] Comment:Testing performed by : [address] [address] Glucose 115 70 - 199 mg/dL [facility] [...] was last revised 2022. Testing performed by: [address] [address] Calcium 9.4 8.5 - 10.3 mg/dL [facility] Comment:Testing performed by : [address] [address] Bilirubin, total 0.3 0.1 - 1.2 mg/dL [facility] Comment:Testing performed by : [address] [address] Protein, pl 7.7 6.5 - 8.5 g/dL [facility] Comment:Testing performed by : [address] [address] Albumin 4.0 3.5 - 5.0 g/dL [facility] Comment:Testing performed by : [address] [address] Alk phos 144(H) 40 - 130 Units/L [facility] Comment:Testing performed by : [address] [address] ALT 15 7 - 55 Units/L [facility] Comment:Testing performed by : [address] [address] AST 23 10 - 50 Units/L [facility] Comment:Testing performed by : [address] [address] Blood 02/07/2025 5:07 PM CDT 02/07/2025 5:11 PM CDT us Ilene Rodgers ASSISTANT FINANCIAL ACCOUNTANT LAB BLOOD ORDERABLES Final Resul t [facility] [address] [facility] Department [place] [address] * (ABNORMAL) Total testosterone (02/04/2025 2:50 PM CDT) Testosterone <3(L) 193 - 740 ng/dL Blood 02/04/2025 2:50 PM CDT 02/04/2025 10:21 PM CDT Simon TAN LAB BLOOD ORDERABLES Final Result Performing Organization Address [facility] Co de Phone Number [place] [place] [address] [address] [place] [address] * PSA diagnostic (02/04/2025 2:50 PM CDT) [...] PM CDT 02/04/2025 10:21 PM CDT Simon TAN LAB BLOOD ORDERABLES Final Result Performing Organization Address City/[facility]/ZIP Co de Phone Number [facility] [place] [address] [address] [facility] [place] [address] * US Vein Duplex Lower Extremity Right Limited, Unilateral (01/07/2025 1:27 PM CDT) Anatomical Region Laterality Modality Vascular Right Ultrasound 01/07/2025 1:07 PM CDT Narrative 01/08/2025 12:01 PM CDT Lower Extremity Venous Report Patient Name: NALLELY MEJIA S : 1950 (74y 1m) Gender: M Study Date: 01/07/2025 01:07:40 PM Retail Team Leader: Tracy Guzman RDMS,RVT Order Provider: SIMON GARCIA [...] Gender: M Study Date: 01/07/2025 01:07:40 PM Retail Team Leader: Tracy Guzman RDMS,RVT Order Provider: SIMON GARCIA [...] phy Narrative 12/26/2024 5:05 PM CDT AMBULATORY [employer] REPORT Patient Name: Nallely Mejia Date of [...] was used to complete this document, therefore, student driving instructor variances may occur. Sushant Madison MD, [facility] 12/26/24 Procedure Note Sushant Madison MD - 12/26/2024 AMBULATORY [employer] REPORT Patient Name: Nallely Mejia Date of [...] given the amount ofsupraventricular ectopy seen Voice recog [id number]|2025-02-08 00:46:00|2025-02-08 00:45:00|XMS_ITS|MELCHOR LUONG|External Medical Summaries|[id number]|" Encounter Summary Created on: February 08, 2025 Nallely Mejia : 1950 Sex: Male Author Organization [facility] Address [facility] [place] [address] Care Team Providers Care Pyrotechnics Press Tender Name Role Phone Corey Angel MD Primary Care Provider [phone] Encounter Details Date Type Department Care Team (Latest Contact Info) Description 01/18/2024 [employer] Message [facility]-[address] [address] Diego Muse MD [address] [place] [address] [address] [place] [address] Heart Monitor Status Social History Tobacco [...] on filedocumented in this encounter Care Teams Pyrotechnics Press Tender Relationship Specialty Start Date End Date Corey Angel MD [address] [place] [address] PCP - General INTERNAL MEDICINE 02/25/21 documented as of this encounter "
--- OUTSIDE RECORDS SUMMARY | 2025-02-08 00:46 | XMS_ITS | Clinical Summary ---
Author Organization [facility] Address [address] [place] [address] Care Team Providers Care Asphalt Paving Machine Operator Name Role Phone Corey Angel MD Primary Care Provider [phone] Allergies No known active allergies Medications rosuvastatin [...] this topic Insurance HUMANA HUMANA Care Teams Asphalt Paving Machine Operator Relationship Specialty Start Date End Date Corey Angel MD [address] [place] [phone] PCP - General INTERNAL MEDICINE 02/25/21
--- OUTSIDE RECORDS SUMMARY | 2025-02-08 00:46 | XMS_ITS | Continuity of Care Document ---
Author Name [facility] Organization [facility] Care Team Providers Care Refund Specialist Name Role Phone [facility] Unavailable Unavailable Medications Combined list of outpatient [...] 'S LAB, 120 ea. BOTTLE Cancele d [id number] : 2023 0 Pharmac y Data Transac tion Service Facilit y LORAZEPAM (lorazepam) , 0.5 MG, TABLET, ORAL, AUROBINDO PHARM, 500 ea. BOTTLE Active [id number] 2023 45 Pharmac y Data Transac tion Service Facilit y LORAZEPAM (lorazepam) , 0.5 MG, TABLET, ORAL, AUROBINDO PHARM, 500 ea. BOTTLE Active [id number] 2023 45 Pharmac y Data Transac tion Service Facilit y METOPROLOL SUCCINATE (metoprolol succinate), 25 MG, TAB ER 24H, ORAL, ACTAVIS/TEV A, 100 ea. BOTTLE Active [id number] 4 2023 45 Pharmac y Data Transac tion Service Facilit y ROSUVASTATI N CALCIUM (rosuvastat in calcium), 40 MG, TABLET, ORAL, CAMBER PHARMACE, 30 ea. BOTTLE Active [id number] 4 2023 90 Pharmac y Data Transac tion Service Facilit y Immunizations Combined list of available immunizations from the Department of Defense and Veterans Affairs facilities. Immunization Series Date Given Administered By Site Reaction Lot Number CVX Code Drug Senior Data Integration Developer Status Comments Source COVID-19, mRNA, LNP-S, PF, 30 mcg/0.3 mL dose 2020 [employer] [place] (PFR) Not Given COVID-19, mRNA, LNP-S, [...] 1 2005 Unknown, Provider [id number] [facility] ([facility]) complet ed influenza virus vaccine, split virus (incl. purified surface antigen)- retired CODE DoD influenza virus vaccine, split virus (incl. purified surface antigen)-reti red CODE 1 2004 Unknown, Provider [id number] Sanofi Pasteur ([facility]) complet ed influenza virus vaccine, split virus (incl. purified surface antigen)- retired CODE DoD typhoid vaccine, parenteral, other than acetone-kille d, dried 1 2004 Unknown, Provider [id number] Sanofi Pasteur ([facility]) complet ed typhoid vaccine, parentera l, other than acetone-k illed, dried DoD hepatitis A vaccine, adult dosage 1 2004 Unknown, Provider [id number] [facility] ([facility]) complet ed hepatitis A vaccine, adult dosage DoD influenza virus vaccine, whole virus 1 1998 Unknown, Provider [id number] [facility] ([facility]) complet ed influenza virus vaccine, whole virus [facility] tuberculin skin test; purified protein derivative solution, [...]
--- OUTSIDE RECORDS SUMMARY | 2025-02-08 00:46 | XMS_ITS | Encounter Summary ---
Author Organization [facility] Address [address] [place] [address] Care Team Providers Care Computer Designer Name Role Phone Corey Angel MD Primary Care Provider Clem Thomson MD Unavailable Harman Morales MD Unavailable [phone] James Robert DO Unavailable [phone] Reason for Visit * Reason Comments Follow-up Encounter Details Date Type Department Care Team (Late st Contact Info) Description 02/07/2025 3:30 PM CDT Office Visit [facility] Building 2 Radiation Oncology [address] [place], [place] [address] Yanci Garcia, PA [address] [place] [address] Prostate cancer (HCC) (Primary Dx); Personal history of radiation therapy Social History Tobacco Use Types Packs/Day [...] on file Legal Sex Male 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 Gender Identity Male 05/22/2018 10:57 AM CDT Sexual Orientation Straight 11/03/2020 7: 01 PM GLOVE PRESSER Occupation Industry Job Start Date Job End Date working Not on file Not on file 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 Not on file Not o n file documented as of this encounter Last Filed Vital Signs Vital Sign Reading Time Taken Comments Blood Pressure 143/101 02/07/2025 3:31 PM CDT Pulse 95 02/07/2025 3:31 PM CDT Temperature - - Respiratory Rate - - Oxygen Saturation 95% 02/07/2025 3:31 PM CDT Inhaled Oxygen Concentration - - Weight 124.7 kg (275 lb) 02/07/2025 3:31 PM CDT Height - - Body Mass Index 38.9 01/08/2025 10:58 AM CDT documented in this encounter Progress Notes * Yanci Garcia PA - 02/07/2025 3:30 PM CDT Radiation Oncologist: Harman Morales MD Dictating provider: DOMINICK Stuart Primary Care Physician: Corey Angel MD Medical Oncologist: James Robert DO Surgeon: No care steamfitter supervisor to display Date of Service: 02/07/2025 RADIATION ONCOLOGY FOLLOW UP NOTE IDENTIFYING DATA: Cancer Staging Prostate cancer (HCC) Staging form: Prostate, AJCC 8th Edition - Clinical stage from 06/28/2024: Stage IIIB (cT3b, cN0, cM0, PSA: 9.1, Grade Group: 2) - Signed by Harman Morales MD on 06/28/2024 Diagnosis Plan 1. Prostate cancer (HCC) 2. Personal history of radiation therapy IDENTIFYING DATA: Clem Capellan is a 74 y.o. male with history of High risk prostate ca (cT3b, PSA 9.1, GS 3+4 8/11 cores) PSMA PET: uptake with invasion into SV. MRI: EPE, invasion into SV 70/50.4, completed 10/19/2024. +LTADT (#1 07/11/2024) +abiraterone/prednisone on hold due to side effects. He presents today to the office for routine follow-up evaluation. INTERVAL HISTORY: Clem Capellan is a very nice gentleman who returns unaccompanied for routine follow-up post radiation to prostate. Patient reports generally he has been doing well since last office visit. Patient does report he recently had a fall resulting and cracked ribs and swollen knee. Patient also developed a lower extremity swelling. Ultrasound evaluation for DVT was negative. Patient develop cellulitis and was treated inpatient with IV antibiotics [facility]. Patient continues on oral antibiotics at this time and is scheduled to follow-up with his primary care provider onay. Patient has limited ability to exercise as his leg is healing. He reports stable appetite. Patient's abiraterone/prednisone are held due to side effects and no plans of resuming Eligard at this time due to his concerns for cardiac toxicity. He continues follow with Medical Oncology and is going to discuss other oral medication options. Denies new lumps or bumps, headaches, dizziness, cough, shortness of breath, or fever/chills. Reports nocturia x 1 per night. Patient reports urinary frequency and urgency at baseline. Denies dysuria, hematuria, or bowel issues. Denies bright red blood per rectum or dark stools. Currently on probiotics. PAST MEDICAL, SURGICAL, FAMILY, AND SOCIAL HISTORY History Last Reviewed by Yanci Garcia PA on 02/07/2025 at 4:12 PM Sections Reviewed Medical, Surgical, Family, Tobacco, Socioeconomic MEDICATIONS: Current Outpatient Medications: ascorbic acid (vitamin C) 1,000 mg tablet, , Disp: , Rfl: cholecalciferol 400 unit capsule, Take 600 Units by mouth every morning, Disp: , Rfl: Eliquis 5 mg tablet, , Disp: , Rfl: esomeprazole DR (NexIUM) 20 mg capsule, Take 1 capsule (20 mg total) by mouth daily before breakfast, Disp: , Rfl: icosapent ethyL (VASCEPA) 1 gram capsule, Take 2 capsules (2 g total) by mouth 2 (two) times a day,Disp: , Rfl: LORazepam (ATIVAN) 0.5 mg tablet, Take 1 tablet (0.5 mg total) by mouth every 6 (six) hours as needed for anxiety (prior to MRI) (Patient not taking: Reported on 12/06/2024), Disp: 1 tablet, Rfl: 0 metoprolol XL (TOPROL-XL) 25 mg extended release tablet, Take 1 tablet (25 mg total) by mouth everymorning, Disp: , Rfl: nitroglycerin (NITROSTAT) 0.4 mg SL tablet, Place 1 tablet (0.4 mg total) under the tongue every 5 (five) minutes as needed for chest pain, Disp: , Rfl: rosuvastatin (CRESTOR) 20 mg tablet, Take 1 tablet (20 mg total) by mouth nightly, Disp: , Rfl: semaglutide (WEGOVY) 0.25 mg/0.5 mL auto-injector, Inject 0.25 mg under the skin every 7 days Plan to increase dose after 1-2 months, Disp: 2 mL, Rfl: 1 tamsulosin (FLOMAX) 0.4 mg extended release capsule, Take 1 capsule (0.4 mg total) by mouth 2 (two)times a day (Patient taking differently: Take 1 capsule (0.4 mg total) by mouth daily), Disp: 180 capsule, Rfl: 0 telmisartan (MICARDIS) 20 mg tablet, Take 1 tablet (20 mg total) by mouth daily, Disp: 90 tablet, Rfl: 3 ALLERGIES: No Known Allergies REVIEW OF SYSTEMS: Except for the symptoms described above, the remainder of the review of systems is negative. Specifically, except as noted, when asked the patient expressed no complaints relative to constitutional (fever, weight loss), eyes, ears, nose, mouth, throat, neurologic, cardiovascular,pulmonary, breast, GI, , skin, musculoskeletal, endocrine, hematologic/lymphatic, or immunologic systems. All other systems negative. PHYSICAL EXAMINATION: Healthy appearing White male in no distress. Wt Readings from Last 3 Encounters: 02/07/25 124.7 kg (275 lb) 01/08/25 126.6 kg (279 lb) 12/06/24 125.4 kg (276 lb 6.4 oz) BP (!) 143/101 Pulse 95 Wt 124.7 kg (275 lb) SpO2 95% BMI 38.90 kg/mÂ² Pain Score and Location 02/07/25 1531 PainSc: 0-No pain Physical Exam Vitals and nursing note reviewed. Constitutional: Appearance: Normal appearance. Cardiovascular: Rate and Rhythm: Normal rate and regular rhythm. Pulmonary: Effort: Pulmonary effort is normal. Breath sounds: Normal breath sounds. Genitourinary: Comments: Deferred rectal exam Musculoskeletal: Cervical back: Normal range of motion and neck supple. Right knee: Swelling and erythema present. Right lower leg: Edema present. Right foot: Swelling present. Skin: General: Skin is warm and dry. Neurological: General: No focal deficit present. Mental Status: He is alert and oriented to person, place, and time. Psychiatric: Mood and Affect: Mood normal. Behavior: Behavior normal. Karnofsky Score: Normal activity with effort ECOG Score: 1 The Karnofsky performance scale today is 80, Normal activity with effort; some signs or symptoms ofdisease (ECOG equivalent 1). DIAGNOSTIC REPORTS REVIEWED: Lab Results Component Value Date PSA <0.01 02/04/2025 PSA <0.01 11/22/2024 PSA 10.00 (H) 06/15/2024 Testosterone: Lab Results Component Value Date TESTOSTERONE <3 (L) 02/04/2025 TESTOSTERONE <3 (L) 11/22/2024 TESTOSTERONE 101 (L) 06/15/2024 AUA Over the past month, how often have you had a sensation of not emptying your bladder completely after you finished urinating?: (Patient-Rptd) (P) 1 During the last month or so, how often have you had to urinate again less than two hours after you finished urinating?: (Patient-Rptd) (P) 1 Over the past month, how often have you found you stopped and started again several times when you urinated?: (Patient-Rptd) (P) 1 Over the past month, how often have you found it difficult to postpone urination?: (Patient-Rptd) (P) 0 Over the past month, how often have you had a weak urinary stream?: (Patient- Rptd) (P) 1 Over the past month, how often have you pushed or strained to begin urination?: (Patient-Rptd) (P) 1 How many times did you typically get up to urinate from the time you went to bed at night until thetime you get up in the morning?: (Patient-Rptd) (P) 1 AUA Total: (Patient-Rptd) (P) 6 Prostate Quality of Life How would you feel if you had to live with your urinary condition the way it is now, no better, no worse, for the rest of your life?: (Patient-Rptd) (P) 1 Sexual Quality of Life How do you rate your confidence that you could get and keep an erection?: (Patient-Rptd) (P) 0 When you had erections with sexual stimulation, how often were your erections hard enough for penetration?: (Patient-Rptd) (P) 0 During sexual intercourse, how often were you able to maintain your erection after you had penetrated (entered) your partner?: (Patient-Rptd) (P) 0 During sexual intercouse, what is the likelihood of maintaining your erections to completion of intercourse?: (Patient-Rptd) (P) 0 When you attempted sexual intercourse, how often was it satisfactory for you?: (Patient-Rptd) (P) 0 Quality Score : (Patient-Rptd) (P) 0 ASSESSMENT: Clem Capellan is clinically and biochemically stable with no evidence of disease recurrence. RAD ONC PAIN PLAN: The patient is not currently having any pain that requires changes in pain management. PSA and testosterone remain undetectable. ADT on hold Recovering from cellulitis - following with primary care provider PLAN: Patient has plans of discussing additional ADT options with Medical Oncology next month. At this time we will continue to follow alongside Medical Oncology with follow-up appointment scheduled for six-months. Labs to be ordered as needed. Follow-up with all other providers as scheduled. ER precautions have been discussed. Patient was offered a copy of his After Visit Summary reviewing the recommendations for continued surveillance. Encouraged to call me in the interim with questions, concerns, or any problems that may develop. Total encounter time on 02/07/2025 was 35 minutes to include activities documented in note, time spent prior to visit reviewing chart and time in direct contact with patient. This time does not include time spent in any separate reportable services. Yanci Garcia PA-C Physician Front Edger Department of Radiation Oncology Panel Builder completed using M*Modal Fluency Direct speaking software, therefore, wind turbine mechanic variances may occur. The patient was seen in collaboration with MD Harman Campbell MD Radiation Oncologist Department of Radiation Oncology [facility] Cosigned by Harman Morales MD at 02/07/2025 4:24 PM CDT documented in this encounter Plan of Treatment Not on file documented as of this encounter Visit Diagnoses Diagnosis Prostate cancer (HCC)- Primary Malignant neoplasm of prostate Personal history of radiation therapy Personal history of irradiation, presenting hazards to health documented in this encounter Care Teams Computer Designer Relationship Specialty Start Date End Date Corey Angel MD [address] [facility] [address] INTERNAL MEDICINE [place], [place] [id number] PCP - General Internal Medicine 06/18/21 Clem Thomson MD [address] [place] [address] Referring Physician Urology 06/14/24 Harman Morales MD [address] [place] [address] [address] [place], [place] [address] Radiation Oncologist Radiation Oncology 06/22/24 James Robert DO [address] [place] [address] MEDICAL ONCOLOGY, [facility] [address] [place] [address] Medical Oncologist/Pole Sander Operator Hematology and Oncology 07/12/24 documented as of this encounter
[2025-02-08 02:00] VITALS: BP 117/71; PULSE 79; O2SAT 95
[2025-02-08 03:15] VITALS: BP 125/87; PULSE 74; RESP 16; O2SAT 97
[2025-02-08 04:23] LABS: Basophils Absolute Auto 0.1 K/mm3 (0.0-0.1); Basophils Percent Auto 0.8 % (0.2-1.2); Eosinophils Absolute Auto 0.6 K/mm3 (0-0.3); Eosinophils Percent Auto 9.1 % (0-4.4); Erythrocyte Sedimentation Rate 49 mm/hr (0-20); Hematocrit 40.9 % (42.0-52.0); Hemoglobin 12.9 g/dL (14.0-18.0); Immature Granulocyte Absolute 0.02 K/mm3 (0.00-0.031); Immature Granulocyte Percent A 0.3 % (0-0.5); Lymphocytes Absolute Auto 0.84 K/mm3 (0.9-3.2); Lymphocytes Percent Auto 13.5 % (18.3-44.2); Mean Corpuscular HGB Conc 31.5 g/dl (32-36); Mean Corpuscular Hemoglobin 28.4 pg (26-34); Mean Corpuscular Volume 89.9 fl (80-100); Mean Platelet Volume 10.5 fl (7.4-10.4); Monocytes Absolute Auto 0.9 K/mm3 (0.1-0.6); Monocytes Percent Auto 14.4 % (2.6-8.5); Neutrophils Absolute Auto 3.9 K/mm3 (1.3-6.7); Neutrophils Percent Auto 61.9 % (45.5-73.1); Platelet Count Result 187 k/mm3 (150-375); Red Blood Count 4.55 M/mm3 (4.6-6.20); Red Cell Distribution Width 13.9 % (11.5-14.5); White Blood Count 6.2 K/mm3 (4.5-10.0)
[2025-02-08 04:30] LABS: CRP 0.6 mg/dL (<1.0)
[2025-02-08 04:31] LABS: Anion Gap 13 mmol/L (4-12); Blood Urea Nitrogen 15 mg/dL (9-20); Calcium 9.2 mg/dL (8.4-10.2); Carbon Dioxide 21 mmol/L (22-30); Chloride 107 mmol/L (98-107); Estimated CRCL calculation 92 ml/min; Estimated Glomerular Filt Rate > 60; Glucose 98 mg/dL (65-110); Potassium 3.6 mmol/L (3.4-5.0); Sodium 141 mmol/L (137-145)
[2025-02-08 05:01] VITALS: BP 121/89; PULSE 78; RESP 12; O2SAT 96
== END 2025-02-08 05:05 | disposition home or self-care (01) ==
PROVIDERS: Emergency Provider Student in an Organized Health Care Education/Training Program; PCP Internal Medicine
DX: L03.115 Cellulitis of right lower limb (principal); E78.5 Hyperlipidemia, unspecified; Z85.46 Personal history of malignant neoplasm of prostate; Z79.01 Long term (current) use of anticoagulants; Z86.711 Personal history of pulmonary embolism
CPT/HCPCS: 36415; 73562; 73590; 80048; 83605; 85025; 85652; 86140; 99284

== ENCOUNTER 2025-02-22 13:31 | Outpatient (CLI) | payer MEDICARE, OTHER, SELFPAY ==
--- OUTSIDE RECORDS SUMMARY | 2025-02-22 13:34 | XMS_ITS | Clinical Summary ---
Author Organization [facility] Address [address] [address] Phone Care Team Providers Care Technical Instructor Name Role Phone Corey Angel MD Primary Care Provider [phone] Uzair Dye DO Unavailable [phone] Allergies No known active allergies Medications [...] Comments Blood Pressure 120/90 10/12/2016 12:23 PM SHIPFITTER Pulse 79 10/12/2016 12:23 PM SHIPFITTER Temperature 36.1 C (96.9 F) 10/12/2016 12:23 PM SHIPFITTER Respiratory Rate 14 10/12/2016 12:23 PM SHIPFITTER Oxygen Saturation 94% 10/12/2016 12:23 PM SHIPFITTER Inhaled Oxygen Concentration - - Weight 117.5 kg (259 lb) 10/12/2016 12:23 PM SHIPFITTER Height 177.8 cm (5' 10) 10/12/2016 12:23 PM SHIPFITTER Body Mass Index 37.16 10/12/2016 12:23 PM SHIPFITTER Plan of Treatment Health Maintenance Due Date [...] Recently Relevant to Health Maintenance Insurance MEDICARE [employer] Care Teams Technical Instructor Relationship Specialty Start Date End Date Corey Angel MD PCP - General Internal Medicine 03/31/16 Uzair Dye DO Gastroenterology 03/31/16
--- OUTSIDE RECORDS SUMMARY | 2025-02-22 13:34 | XMS_ITS | Continuity of Care Document ---
Author Name [facility] Organization [facility] Care Team Providers Care Hanger Name Role Phone [facility] Unavailable Unavailable Medications Combined list of outpatient [...] 'S LAB, 120 ea. BOTTLE Cancele d [id number] : 2023 0 Pharmac y Data Transac tion Service Facilit y LORAZEPAM (lorazepam) , 0.5 MG, TABLET, ORAL, AUROBINDO PHARM, 500 ea. BOTTLE Active [id number] 4 2023 45 Pharmac y Data Transac tion Service Facilit y LORAZEPAM (lorazepam) , 0.5 MG, TABLET, ORAL, AUROBINDO PHARM, 500 ea. BOTTLE Active [id number] 4 2023 45 Pharmac y Data Transac tion Service Facilit y METOPROLOL SUCCINATE (metoprolol succinate), 25 MG, TAB ER 24H, ORAL, ACTAVIS/TEV A, 100 ea. BOTTLE Active [id number] 4 2023 45 Pharmac y Data Transac tion Service Facilit y ROSUVASTATI N CALCIUM (rosuvastat in calcium), 40 MG, TABLET, ORAL, CAMBER PHARMACE, 30 ea. BOTTLE Active [id number] 4 2023 90 Pharmac y Data Transac tion Service Facilit y Immunizations Combined list of available immunizations from the Department of Defense and Veterans Affairs facilities. Immunization Series Date Given Administered By Site Reaction Lot Number CVX Code Drug Nuclear Equipment Design Engineer Status Comments Source COVID-19, mRNA, LNP-S, PF, 30 mcg/0.3 mL dose 2020 [place] (PFR) Not Given COVID-19, mRNA, LNP-S, [...] 1 2005 Unknown, Provider [id number] [facility] ([facility]) complet ed influenza virus vaccine, split virus (incl. purified surface antigen)- retired CODE DoD influenza virus vaccine, split virus (incl. purified surface antigen)-reti red CODE 1 2004 Unknown, Provider [id number] Sanofi Pasteur ([facility] [...] 1 2004 Unknown, Provider [id number] [facility] ([facility]) complet ed hepatitis A vaccine, adult dosage DoD influenza virus vaccine, whole virus 1 1998 Unknown, Provider [id number] [facility] Of [facility] (CON) complet ed influenza virus vaccine, whole virus [facility] tuberculin skin test; purified protein [...]
--- OUTSIDE RECORDS SUMMARY | 2025-02-22 13:34 | XMS_ITS | Clinical Summary ---
Author Organization [facility] Virtual 3-D Display for Smartphonespaintsville arh hospitalNextImage Medical [facility] Address [address] [place] [address] Care Team Providers Care Expeditionary Fighting Vehicle Crewman Name Role Phone Corey Angel MD Primary Care Provider [phone] Nallely Thomson MD Unavailable Harman Morales MD Unavailable [phone] James Robert DO Unavailable Allergies No known active allergies Medications esomeprazole [...] mL auto-injectorInd ications:Coronar y artery disease involving [place] heart without angina pectoris, unspecified vessel [...] CDT - 02/07/2025 6:50 PM CDT Emergency [facility] [address] [place] [id number] Discharge Disposition: Left without being seen 02/07/2025 3:30 PM CDT Office Visit [facility] Building 2 Radiation Oncology [address] [place] [address] Simon Garcia PA Prostate cancer (HCC) (Primary Dx); Personal history of radiation therapy 02/04/2025 3:00 PM CDT Lab [facility] Outpatient Lab at [address] [id number] Elevated PSA (Primary Dx) 02/04/2025 2:50 PM CDT - 02/04/2025 11:59 PM CDT Hospital Encounter [address] [address] Prostate cancer (HCC) Discharge Disposition: Discharge to home or self care 01/28/2025 Orders Only [facility] Building 2 Radiation Oncology [address] [place] [address] Simon Gracia PA Prostate cancer (HCC) (Primary Dx) 01/09/2025 Telephone [facility] Cardiology [facility] 8th [place] [address] [place] [address] Albino Yanez MD 01/08/2025 11:00 AM CDT Office Visit [facility] Cardiology [facility] Floor 1, [address] [place] [address] Albino Yanez MD Coronary artery disease involving [place] heart without angina pectoris, unspecified vessel or lesion type (Primary Dx); Body mass index (BMI) of 39.0 to 39.9 in adult; High risk medication use; Essential hypertension 01/08/2025 Telephone [facility] Cardiology [facility] Medicine 8th [place] [address] [place] [phone] Kim Sewell 01/08/2025 Documentation [facility] Cardiology [address] [facility] Floor 1, [address] [place] [phone] Sara Hendrix RN 01/07/2025 12:44 PM CDT - 01/07/2025 11:59 PM CDT Hospital Encounter [facility] [address] [place] [address] Pain in right foot; Swelling of right foot Discharge Disposition: Discharge to home or self care 01/01/2025 Telephone [facility] Building 2 Radiation Oncology [address] [place] [address] Lucila Rodriguez 12/31/2024 Orders Only [facility] 2 Radiation Oncology [address] [place] [address] Simon Garcia PA Pain in right foot (Primary Dx); Swelling of right foot 12/20/2024 10:30 AM CDT Ancillary Procedure [facility] Cardiology [address] [place] [address] Palpitations 12/06/2024 1:15 PM CDT Office Visit [facility] Oncology [address] [facility] [address] [place] [phone] James Robert DO Prostate cancer (HCC) (Primary Dx) 11/27/2024 1:30 PM FIELD CLERK Office Visit [facility] Building 2 Radiation Oncology [address] [place] [address] Simon Garcia PA Prostate cancer (HCC) (Primary Dx); Personal history of radiation therapy from Last 3 Months Immunizations Immunization Administration Dates Next Due Influenza, Trivalent, IM (MDV) 09/08/2016 Surgical History Surgery Date Site/Laterality Comments [...] file Legal Sex Male 2:49 AM FIELD CLERK Gender Identity Male 05/22/2018 10:57 AM CDT Sexual Orientation Straight 11/03/2020 7: 01 PM FIELD CLERK Occupation Industry Job Start Date Job End Date working Not on file Not 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 on file [...] 1968 Well Visit 65+ 2016 Covid-19 Vaccine (2023-2 5 season) 2024 08/12/2021, 12/13/2020, 11/20/2020 Fall [...] HR Routine 12/20/2024 10:23 AM CDT Palpitations from Last 3 Months Results * Lactate (02/07/2025 5:07 PM CDT) Lactate 1.6 0.7 - 2.0 mmol/L Comment:Testing performed by : [facility], [address] [place]., [address] Blood 02/07/2025 5:07 PM CDT 02/07/2025 5:11 PM CDT Ilene Rodgers NP LAB BLOOD ORDERABLES Final Resul t Performing Organization Address City/[facility] Co de Phone Number [facility] [address] [address] * eGFR (02/07/2025 5:07 PM CDT) Pathologist [facility] [place] eGFR >90 >=60 mL/min/1. 73 m2 Comment: [...] was last reviewed 2021. Testing performed by: [facility], [address] [place] [address]., [address] Blood 02/07/2025 5:07 PM CDT 02/07/2025 5:11 PM CDT Ilene Rodgers NP LAB BLOOD ORDERABLES Final Resul t Performing Organization Address City/[facility]/ZIP Co de Phone Number [address] [place] [address] * (ABNORMAL) Differential, auto (02/07/2025 5:07 PM CDT) Neutrophil abs 4.28 1.50 - 6.50 K/cumm Comment:Testing performed by : [address] [address] Imm gran abs 0.03 0.00 - 0.10 K/cumm [facility] Comment:Testing performed by : [address], [place]., [address] Lymphocyte abs 0.74(L) 0.80 - 3.30 K/cumm [facility] Comment:Testing performed by : [address], [place]., [address] Monocyte abs 0.91(H) 0.20 - 0.80 K/cumm [facility] Comment:Testing performed by : [address] [address] Eosinophil abs 0.39 0.00 - 0.50 K/cumm [facility] Comment:Testing performed by : [address] [address] Basophil abs 0.03 0.00 - 0.10 K/cumm [facility] Comment:Testing performed by : [address] [address] Neutrophil pct 67.0 % [facility] Comment: Interpretive Data Percent cell count reference ranges are not reported, since discordance with absolute values may lead to misinterpretation of CBC data. Current Interpretive Data was last revised on 2018. Testing performed by: [address] [address] Imm gran pct 0.5 % [facility] Comment: Interpretive Data Percent cell count reference ranges are not reported, since discordance with absolute values may lead to misinterpretation of CBC data. Current Interpretive Data was last revised on 2018. Testing performed by: [address] [address] Lymphocyte pct 11.6 % [facility] Comment: Interpretive Data Percent cell count reference ranges are not reported, since discordance with absolute values may lead to misinterpretation of CBC data. Current Interpretive Data was last revised on 2018. Testing performed by: [address] [address] Monocyte pct 14.3 % [facility] Comment: Interpretive Data Percent cell count reference ranges are not reported, since discordance with absolute values may lead to misinterpretation of CBC data. Current Interpretive Data was last revised on 2018. Testing performed by: [address] [address] Eosinophil pct 6.1 % [facility] [place] Comment: Interpretive Data Percent cell count reference ranges are not reported, since discordance with absolute values may lead to misinterpretation of CBC data. Current Interpretive Data was last revised on 2018. Testing performed by: [address] [address] Basophil pct 0.5 % [facility] [place] Comment: Interpretive Data Percent cell count reference ranges are not reported, since discordance with absolute values may lead to misinterpretation of CBC data. Current Interpretive Data was last revised on 2018. Testing performed by: [address] [address] Blood 02/07/2025 5:07 PM CDT 02/07/2025 5:11 PM CDT us Ilene Rodgers NP LAB BLOOD ORDERABLES Final Resul t [facility] [place] [address] [facility] [place] [address] * CBC with auto differential (02/07/2025 5:07 PM CDT) WBC 6.38 3.80 - 9.90 K/cumm Comment:Testing performed by : [address] [address] Hgb 13.0 13.0 - 17.5 g/dL [facility] [place] Comment:Testing performed by : [address] [address] Hct 39.2 38.9 - 50.3 % [facility] [place] Comment:Testing performed by : [address] [address] Plt 183 150 - 400 K/cumm [facility] [place] Comment:Testing performed by : [address] [address] MPV 10.4 9.1 - 12.3 fL [facility] Comment:Testing performed by : [address] [address] RBC 4.53 4.30 - 5.80 M/cumm [facility] [place] Comment:Testing performed by : [address] [address] MCV 86.5 81.3 - 96.4 fL [facility] Comment:Testing performed by : [address] [address] MCH 28.7 27.1 - 33.3 pg [facility] Comment:Testing performed by : [address], [address] MCHC 33.2 32.3 - 35.7 g/dL [facility] Comment:Testing performed by : [address], [address] RDW CV 13.8 11.1 - 14.9 % [facility] Comment:Testing performed by : [address], [address] RDW SD 43.1 35.7 - 48.1 fL [facility] Comment:Testing performed by : [address], [address] NRBC abs 0.00 0.00 - 0.01 K/cumm [facility] Comment:Testing performed by : [address] [address] Blood 02/07/2025 5:07 PM CDT 02/07/2025 5:11 PM CDT us Ilene Rodgers NP LAB BLOOD ORDERABLES Final Resul t [facility] [address] [facility] [place] [address] * (ABNORMAL) Comprehensive metabolic panel (02/07/2025 5:07 PM CDT) Sodium 139 135 - 145 mmol/L Comment:Testing performed by : [address] [address] Potassium, pl 3.8 3.3 - 4.9 mmol/L [facility] Comment:Testing performed by : [address] [address] Chloride 104 97 - 110 mmol/L [facility] Comment:Testing performed by : [address], [place]., [address] CO2 21(L) 22 - 32 mmol/L [facility] Comment:Testing performed by : [address] [address] Anion gap 14 2 - 15 mmol/L [facility] Comment:Testing performed by : [address] [address] BUN 14 6 - 25 mg/dL [facility] Comment:Testing performed by : [address] [address] Creatinine 0.70(L) 0.80 - 1.30 mg/dL [facility] Comment:Testing performed by : [address] [address] Glucose 115 70 - 199 mg/dL [facility] Comment: Interpretive Data Fasting glucose >/= 126 [...] was last revised 2022. Testing performed by: [address] [address] Calcium 9.4 8.5 - 10.3 mg/dL [facility] Comment:Testing performed by : [address] [address] Bilirubin, total 0.3 0.1 - 1.2 mg/dL [facility] Comment:Testing performed by : [address] [address] Protein, pl 7.7 6.5 - 8.5 g/dL [facility] Comment:Testing performed by : [address] [address] Albumin 4.0 3.5 - 5.0 g/dL [facility] Comment:Testing performed by : [address] [address] Alk phos 144(H) 40 - 130 Units/L [facility] Comment:Testing performed by : [address] [address] ALT 15 7 - 55 Units/L [facility] Comment:Testing performed by : [address], [address] AST 23 10 - 50 Units/L [facility] Comment:Testing performed by : [address] [address] Blood 02/07/2025 5:07 PM CDT 02/07/2025 5:11 PM CDT Ilene Rodgers SHEEP FARM WORKER LAB BLOOD ORDERABLES Final Resul t [facility] [address] [facility] [place] [address] * (ABNORMAL) Total testosterone (02/04/2025 2:50 PM CDT) Testosterone <3(L) 193 - 740 ng/dL Blood 02/04/2025 2:50 PM CDT 02/04/2025 10:21 PM CDT Simon Garcia PA LAB BLOOD ORDERABLES Final Result [facility] [address] [address] [place] [address] * PSA diagnostic (02/04/2025 2:50 PM CDT) [...] TAN LAB BLOOD ORDERABLES Final Result [facility] [address] [facility] Department [place] [address] * US Vein Duplex Lower Extremity Right Limited, Unilateral (01/07/2025 1:27 PM CDT) Anatomical Region Laterality Modality Vascular Right Ultrasound 01/07/2025 1:07 PM CDT Narrative 01/08/2025 12:01 PM CDT Lower Extremity Venous Report Patient Name: NALLELY MEJIA S : 1950 (74y 1m) Gender: M Study Date: 01/07/2025 01:07:40 PM Strategic Client Executive: Tracy Guzman RDMS,RVT Order Provider: SIMON GARCIA [...] Gender: M Study Date: 01/07/2025 01:07:40 PM Strategic Client Executive: Tracy Guzman RDMS,RVT Order Provider: SIMON GARCIA [...] phy Narrative 12/26/2024 5:05 PM CDT AMBULATORY EMAIL MARKETING SPECIALIST REPORT Patient Name: Nallely Mejia Date [...] was used to complete this document, therefore, glue mounter operator variances may occur. Sushant Madison MD, [facility] 12/26/24 Procedure Note Sushant Madison MD - 12/26/2024 AMBULATORY EMAIL MARKETING SPECIALIST REPORT Patient Name: Nallely Mejia Date [...] software was used to complete this document, therefore,glue mounter operator variances may occur. Sushant Madison MD, [facility] 12/26/24 Corey Angel MD CV CARDIAC SERVICES PROCEDURE S Final Result from Last 3 Months Insurance [employer] MEDICARE PPO MEDICARE FOR LIFE FOR LIFE [employer] MEDICARE PPO Care Teams Expeditionary Fighting Vehicle Crewman Relationship Specialty Start Date End Date Corey Angel MD [address] [facility] [address] INTERNAL MEDICINE [place], [place] [id number] PCP - General Internal Medicine 06/18/21 Nallely Thomson MD [address] [place] [address] Referring Physician Urology 06/14/24 Harman Morales MD [address] [place] [address] [address] [place] [address] Radiation Oncologist Radiation Oncology 06/22/24 James Robert DO [address] [place] [address] MEDICAL ONCOLOGY, [facility] [address] [place] [address] Medical Oncologist/Private Detective Hematology and Oncology 07/12/24
--- OUTSIDE RECORDS SUMMARY | 2025-02-22 13:34 | XMS_ITS | Referral Summary ---
Author Organization [facility] Address [address] [place] [address] Care Team Providers Care Reading Coach Name Role Phone Corey Angel MD Primary Care Provider Nallely Thomson MD Unavailable Harman Morales MD Unavailable [phone] James Robert DO Unavailable [phone] Encounters Date Type Department Care Team Description 02/07/2025 4:36 PM CDT - 02/07/2025 6:50 PM CDT Emergency [facility] Emergency Department [address] [place] [address] Discharge Disposition: Left without being seen 02/07/2025 3:30 PM CDT Office Visit [facility] Medical Office Building 2 Radiation Oncology [facility] [place] [address] Simon Garcia PA Prostate cancer (HCC) (Primary Dx); Personal history of radiation therapy 02/04/2025 2:50 PM CDT - 02/04/2025 11:59 PM CDT Hospital Encounter [facility] [id number] [place] [address] Prostate cancer (HCC) Discharge Disposition: Discharge to home or self care 02/04/2025 3:00 PM CDT Lab [facility] Outpatient Lab at [address] [address] Elevated PSA (Primary Dx) 01/28/2025 Orders Only [facility] Medical Office Building 2 Radiation Oncology [address] [place] [address] Simon Garcia PA Prostate cancer (HCC) (Primary Dx) 01/09/2025 Telephone [facility] Cardiology Critical access hospital1 [facility] Advanced Medicine 8th [place] [address] [place] [address] Albino Yanez MD 01/08/2025 Telephone [facility] Cardiology Critical access hospital1 [facility] 8th [place] [address] [place] [address] Kim Sewell 01/08/2025 Documentation [facility] Cardiology [facility]0 [facility] Floor 1, [address] [place] [id number] Sara Hendrix RN 01/08/2025 11:00 AM CDT Office Visit [facility] Cardiology [address] [place] [address] Floor 1, [address] [place] [id number] Albino Yanez MD 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, unspecified vessel or lesion type (Primary Dx); Body mass index (BMI) of 39.0 to 39.9 in adult; High risk medication use; Essential hypertension 01/07/2025 12:44 PM CDT - 01/07/2025 11:59 PM CDT Hospital Encounter [facility] Vascular Lab [address] [place] [address] Pain in right foot; Swelling of right foot Discharge Disposition: Discharge to home or self care 01/01/2025 Telephone [facility] Medical Office Building 2 Radiation Oncology [address] [place] [address] MontaraJatin roa 12/31/2024 Orders Only [facility] Medical Office Building 2 Radiation Oncology [address] [place] [address] Simon Garcia PA Pain in right foot (Primary Dx); Swelling of right foot 12/20/2024 10:30 AM CDT Ancillary Procedure [facility] Cardiology [address] [place] [address] Palpitations 12/06/2024 1:15 PM CDT Office Visit [facility] Physicians [facility] Oncology [address] [place] [address] [address] [place] [phone] James Robert DO Prostate cancer (HCC) (Primary Dx) 11/27/2024 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 Office Visit [facility] Medical Office Building 2 Radiation Oncology [address] [place] [address] Simon Garcia PA Prostate cancer (HCC) (Primary Dx); Personal history of radiation therapy from Last 3 Months Allergies No known [...] Reported on 01/08/2025 Eliquis 5 mg tablet Active semaglutide (WEGOVY) 0.25 mg/0.5 mL auto-injectorInd ications:Coronar y artery disease involving cachil dehe heart without angina pectoris, unspecified vessel or [...] 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 - Left 05/30/2018 Knee pain 04/22/2016 Immunizations [...] on file Legal Sex Male 2:49 AM 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 Gender Identity Male 05/22/2018 10:57 AM CDT Sexual Orientation Straight 11/03/2020 7: 01 PM 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 The CKD-EPI equation should not be used for patients with unstable renal function and has not been validated in children and those over 70. Current interpretive data was last reviewed 2021. Testing performed by: [facility], [address] [place] [address]., [address] Blood 02/07/2025 5:07 PM CDT 02/07/2025 5:11 PM CDT us Ilene Rodgers NP LAB BLOOD ORDERABLES Final Resul t [facility] [address] [facility] Department [place] [address] * (ABNORMAL) Differential, auto (02/07/2025 5:07 PM CDT) Neutrophil abs 4.28 1.50 - 6.50 K/cumm Comment:Testing performed by : [address] [address] Imm gran abs 0.03 0.00 - 0.10 K/cumm [facility] Comment:Testing performed by : [address] [address] Lymphocyte abs 0.74(L) 0.80 - 3.30 K/cumm [facility] Comment:Testing performed by : [address] [address] Monocyte abs 0.91(H) 0.20 - 0.80 K/cumm [facility] Comment:Testing performed by : [address] [address] Eosinophil abs 0.39 0.00 - 0.50 K/cumm [facility] Comment:Testing performed by : [address] [address] Basophil abs 0.03 0.00 - 0.10 K/cumm [facility] Comment:Testing performed by : [address] [address] Neutrophil pct 67.0 % [facility] Comment: Interpretive Data Percent cell count reference ranges are not reported, since discordance with absolute values may lead to misinterpretation of CBC data. Current Interpretive Data was last revised on 2018. Testing performed by: [address] [address] Imm gran pct 0.5 % [facility] Comment: Interpretive Data Percent cell count reference ranges are not reported, since discordance with absolute values may lead to misinterpretation of CBC data. Current Interpretive Data was last revised on 2018. Testing performed by: [address] [address] Lymphocyte pct 11.6 % [facility] Comment: Interpretive Data Percent cell count reference ranges are not reported, since discordance with absolute values may lead to misinterpretation of CBC data. Current Interpretive Data was last revised on 2018. Testing performed by: [address] [address] Monocyte pct 14.3 % [facility] Comment: Interpretive Data Percent cell count reference ranges are not reported, since discordance with absolute values may lead to misinterpretation of CBC data. Current Interpretive Data was last revised on 2018. Testing performed by: [address] [address] Eosinophil pct 6.1 % [facility] Comment: Interpretive Data Percent cell count reference ranges are not reported, since discordance with absolute values may lead to misinterpretation of CBC data. Current Interpretive Data was last revised on 2018. Testing performed by: [address] [address] Basophil pct 0.5 % [facility] Comment: Interpretive Data Percent cell count reference ranges are not reported, since discordance with absolute values may lead to misinterpretation of CBC data. Current Interpretive Data was last revised on 2018. Testing performed by: [address] [address] Blood 02/07/2025 5:07 PM CDT 02/07/2025 5:11 PM CDT us Ilene Rodgers NP LAB BLOOD ORDERABLES Final Resul t [facility] [place] [address] [facility] Department [place] [address] * CBC with auto differential (02/07/2025 5:07 PM CDT) WBC 6.38 3.80 - 9.90 K/cumm Comment:Testing performed by : [address] [address] Hgb 13.0 13.0 - 17.5 g/dL [facility] Comment:Testing performed by : [address] [address] Hct 39.2 38.9 - 50.3 % [facility] Comment:Testing performed by : [address] [address] Plt 183 150 - 400 K/cumm [facility] Comment:Testing performed by : [address] [address] MPV 10.4 9.1 - 12.3 fL [facility] Comment:Testing performed by : [address], [address] RBC 4.53 4.30 - 5.80 M/cumm [facility] Comment:Testing performed by : [address] [address] MCV 86.5 81.3 - 96.4 fL [facility] Comment:Testing performed by : [address] [address] MCH 28.7 27.1 - 33.3 pg [facility] Comment:Testing performed by : [address] [address] MCHC 33.2 32.3 - 35.7 g/dL [facility] Comment:Testing performed by : [address] [address] RDW CV 13.8 11.1 - 14.9 % [facility] Comment:Testing performed by : [address] [address] RDW SD 43.1 35.7 - 48.1 fL [facility] Comment:Testing performed by : [address] [address] NRBC abs 0.00 0.00 - 0.01 K/cumm [facility] Comment:Testing performed by : [address] [address] Blood 02/07/2025 5:07 PM CDT 02/07/2025 5:11 PM CDT us Ilene Rodgers NP LAB BLOOD ORDERABLES Final Resul t [facility] [address] [facility] Department [place] [address] * (ABNORMAL) Comprehensive metabolic panel (02/07/2025 5:07 PM CDT) Sodium 139 135 - 145 mmol/L Comment:Testing performed by : [address] [address] Potassium, pl 3.8 3.3 - 4.9 mmol/L [facility] Comment:Testing performed by : [address] [address] Chloride 104 97 - 110 mmol/L [facility] Comment:Testing performed by : [address] [address] CO2 21(L) 22 - 32 mmol/L [facility] Comment:Testing performed by : [address] [address] Anion gap 14 2 - 15 mmol/L [facility] Comment:Testing performed by : [address] [address] BUN 14 6 - 25 mg/dL [facility] Comment:Testing performed by : [address] [address] Creatinine 0.70(L) 0.80 - 1.30 mg/dL [facility] Comment:Testing performed by : [address] [address] Glucose 115 70 - 199 mg/dL [facility] [...] was last revised 2022. Testing performed by: [facility], [address] [place] [address]., [address] Calcium 9.4 8.5 - 10.3 mg/dL [facility] Comment:Testing performed by : [address] [address] Bilirubin, total 0.3 0.1 - 1.2 mg/dL [facility] Comment:Testing performed by : [address] [address] Protein, pl 7.7 6.5 - 8.5 g/dL [facility] Comment:Testing performed by : [address] [address] Albumin 4.0 3.5 - 5.0 g/dL [facility] Comment:Testing performed by : [address] [address] Alk phos 144(H) 40 - 130 Units/L [facility] Comment:Testing performed by : [address] [address] ALT 15 7 - 55 Units/L [facility] Comment:Testing performed by : [address] [address] AST 23 10 - 50 Units/L [facility] Comment:Testing performed by : [address] [address] Blood 02/07/2025 5:07 PM CDT 02/07/2025 5:11 PM CDT Ilene Rodgers DIRECTOR [employer]EARCH LAB BLOOD ORDERABLES Final Resul t [facility] [address] [facility] Department [place] [address] * (ABNORMAL) Total testosterone (02/04/2025 2:50 PM CDT) Testosterone <3(L) 193 - 740 ng/dL Blood 02/04/2025 2:50 PM CDT 02/04/2025 10:21 PM CDT Simon TAN LAB BLOOD ORDERABLES Final Result Performing Organization Address [facility] [place] [address] [facility] [address] * PSA diagnostic (02/04/2025 2:50 PM CDT) [...] BLOOD ORDERABLES Final Result Performing Organization Address [facility] de Phone Number [facility] [place] [address] [place] [address] * US Vein Duplex Lower Extremity Right Limited, Unilateral (01/07/2025 1:27 PM CDT) Anatomical Region Laterality Modality Vascular Right Ultrasound 01/07/2025 1:07 PM CDT Narrative 01/08/2025 12:01 PM CDT Lower Extremity Venous Report Patient Name: NALLELY MEJIA S : 1950 (74y 1m) Gender: M Study Date: 01/07/2025 01:07:40 PM Ventilation Mechanic: Tracy Guzman RDMS,RVT Order Provider: SIMON GARCIA [...] Gender: M Study Date: 01/07/2025 01:07:40 PM Ventilation Mechanic: Tracy Guzman RDMS,RVT Order Provider: SIMON GARCIA [...] phy Narrative 12/26/2024 5:05 PM CDT 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 Sushant Madison MD, [facility] 12/26/24 Procedure Note Sushant Madison MD - 12/26/2024 AMBULATORY LOTTERY SALES CLERK REPORT Patient Name: Nallely Mejia Date of [...] software was used to complete this document, therefore,boarding house cook variances may occur. Sushant Madison MD, [facility] 12/26/24 Corey Angel MD CV CARDIAC SERVICES PROCEDURE S Final Result from Last 3 Months Insurance [employer] CHOICE MEDICARE PPO MEDICARE FOR LIFE FOR LIFE [employer] CHOICE MEDICARE PPO Care Teams Reading Coach Relationship Specialty Start Date End Date Corey Angel MD [address] [facility] [address] [place] [address] PCP - General Internal Medicine 06/18/21 Nallely Thomson MD [address] [place] [address] Referring Physician Urology 06/14/24 Harman Morales MD [address] [place] [address] [address] [place] [address] Radiation Oncologist Radiation Oncology 06/22/24 James Robert DO [address] [place] [address] MEDICAL ONCOLOGY, [facility] [address] [place] [address] Medical Oncologist/Corduroy Cutting Supervisor Hematology and Oncology 07/12/24
--- OUTSIDE RECORDS SUMMARY | 2025-02-22 13:34 | XMS_ITS ---
Author Organization [facility] Address [address] [place] [address] Care Team Providers Care Interactive Web Developer Name Role Phone Corey Angel MD Primary Care Provider [phone] Clem Thomson MD Unavailable Harman Morales MD Unavailable [phone] James Robert DO Unavailable [phone] Active Problems Problem Noted Date Diagnosed Date Personal history of radiation therapy 11/15/2024 Prostate cancer 05/02/2024 Cancer Staging:Clinical stage from 06/28/2024:Stage IIIB(cT3b, cN0, cM0, PSA: 9.1, Grade Group: 2) - Signed by Harman Morales MD on 06/28/2024 Elevated PSA 12/19/2023 Ascending aortic aneurysm 06/19/2021 Squamous cell carcinoma of skin of left quaker - Left 05/30/2018 Knee pain 04/22/2016 Current [...]
[2025-02-22 14:09] LABS: Alveolar/Arterial O2 Gradient 29.8 mmHg; Base Excess ABG -1.8 mEq/l (+/-2.0); Carboxyhemoglobin 0.5 % THb (0-2.0); Fractional Inspired Oxygen 21 %; HCO3 ABG 21.6 mEq/l (22.0-26.0); Methemoglobin ABG 0.3 %THb (0-1.5); Oxygen Content ABG 18.6 %vol (16.0-22.0); Oxygen Saturation ABG 96.3 % (95.0-100.0); Oxyhemoglobin 95.5 % THb (90.0-100.0); PO2 ABG 80.4 mmHg (80.0-100.0); PO2 FiO2 Ratio Arterial Blood 3.83 %; Reduced Hemoglobin 3.7 %THb (0-5.0); Total Hemoglobin 13.8 g/dL (12.0-18.0); pH ABG 7.434 (7.350-7.450)
[2025-02-22 14:11] LABS: Device ROOM AIR; Modified Allen's Test Pass; Site Drawn LEFT RADIAL
--- NOTE | 2025-02-28 12:04 | P.PCNPFT_ITS ---
PFT Procedure Performed PFT Procedure Performed Spirometry with Pre/Post Bronchodilator Plethysmography (Lung Vol) Diffusing Cap (DLCO) Flow Vol Loop PFT Interpretation DOS: 02/22/2025 REQUESTING: Mauro Mueller MD REASON FOR TESTING: ILD PULMONARY FUNCTION TESTS Results are reliable and reproducible. Repeatability of spirometry FEV1 maneuver pre and post bronchodilator is Grade A. GLI 2012 reference equations were used. Spirometry: The pre-bronchodilator FEV1 is 3.06 L, 92%, normal. The pre- bronchodilator FVC is 4.58 L, 103%, normal. The FEV1/FVC ratio is 67%, normal. After bronchodilator, the FEV1 is 3.18 L, 96%, +4%, not statistically increased. After bronchodilator, the FVC is 4.52 L, 102%,-1%. The FEV1/FVC ratio is 70%. Lung volumes: The total lung capacity is 6.63 L, 89%. The residual volume is 2.05 L, 78%, normal. The RV/TLC is 31%, normal. FRC is 2.96 L, 74%, normal. Airway resistance is normal. Diffusion: DLCO is 22.6, 86%, normal. The DLCO/VA is 3.64, 98%, normal. Flow volume loop: The flow volume loop shows an unremarkable pattern. IMPRESSION: Normal spirometry without airflow obstruction, no response to bronchodilator administration. Normal lung volumes and normal diffusion. No prior studies to compare. Lack of response to bronchodilator should not preclude use if clinically indicated. Gianna Mills MD
--- NOTE | 2025-02-28 12:12 | WPDSIXMINUTE ---
Six Minute Walk Procedure Procedure Performed Pulmonary Stress Test (6 min walk) Six Minute Walk Six Minute Walk: DATE OF SERVICE: 02/22/2025 REQUESTING: Mauro Mueller MD REASON FOR TESTING: ILD SIX MINUTE WALK This test was conducted per ATS guidelines. The initial saturation was 95%, and initial heart rate was 81 beats per minute. The patient walked without stopping, completing 304.8 m/1000 ft. The saturation at the end of testing was 96%, and the heart rate was 108 beats per minute. The maximum pulse during the study was 128 beats per minute. The dyspnea fatigue score at the beginning of the test was 0/1. At the end of the test the dyspnea/fatigue score was 1/1. IMPRESSION: This is a normal study. The patient did not require supplemental oxygen with exertion. Gianna Mills MD
== END 2025-02-22 13:32 | disposition home or self-care (01) ==
PROVIDERS: PCP Internal Medicine; Visit Provider Internal Medicine Pulmonary Disease
DX: J84.9 Interstitial pulmonary disease, unspecified (principal)
CPT/HCPCS: 36600; 82375; 82805; 83050; 85018; 94060; 94618; 94726; 94729

== ENCOUNTER 2025-03-22 12:30 | Outpatient (RCR) | payer MEDICARE, OTHER, SELFPAY ==
--- NOTE | 2025-03-04 15:32 | OTOPEVAL1 ---
Assessment and note entered by Tata Quinones OT Evaluation Information Assessment Status Evaluation Diagnosis Edema Other ICD-10 Condition Codes ( R. 60.9 OT) Subjective Information Pt. reports he fell about 7 weeks ago on his knee which resulted in R knee and below knee swelling, eventually contributing to R LE cellulitis. Pt. also is currently on hormone treatment for prostate cancer in June, which initiated the start of R foot swelling, prior to R knee injury. Pt. states it doesn't cause pain, pt. states that he has increasing discomfort while standing for > 5 minutes in R LE. P. reports this is also limiting his ability to reach down to R foot and put on socks and shoes. Reported Pain Level Pain Score 3: Self Report Assessment OT Clinical Summary Pt. is 74 year old M, referred due to R60.9 Edema in R LE, pt. reports ab onset as a combination of hormone treatment for prostate cancer, for which pt. has also has radiation therapy, a fall onto R knee for which pt. sustained injury, and a R calf cellulitis infection. Pt. presents with increased firm swelling in R LE from foot to above knee measuring 625 cm of vouge, as compared to L LE at 577 cm. PT. will benefit from intensive decongestive therapy including short stretch compression bandaging, manual lymph drainage, and use of pneumatic compression pump to reduce volume of limb, facilitate healing process of R LE injury and prior infection, with eventual transition to maintenance phase of condition, which could include fitting for appropriate compression garment. Plan of Care Interventions Therapeutic Exercise,Manual Therapy,Therapeutic Activities,Other Other Interventions short stretch compression bandaging and use of pneumatic pump OT Services Indicated Yes Treatment Frequency and 3 x/ wk for 10 visits Duration These treatments will address the objective and functional deficits as defined above. The patient will be advanced safely and appropriately in order for the patient to progress towards his/her prior level of function. Additional exercises will be introduced and as well as a comprehensive home exercise program upon discharge, if needed, ?to ensure carryover of functional gains achieved in the clinic. This treatment plan has been reviewed and agreement upon by the patient.
--- NOTE | 2025-03-04 15:34 | OPREHPOC ---
Outpatient Therapy Plan of Care This is a Multidisciplinary Plan of Care that may contain components documented by all disciplines (PT, OT, and ST.) OT Problem 1 OT Problem #1 Knowledge Deficit OT Goal 1 Goal / Goal Update Pt. will demonstrated independence in HEP and self manual lymph drainage routine Target Visit 10 OT Problem 2 OT Problem #2 Edema OT Goal 1 Goal / Goal Update Pt. will display reduction of R LE volume by 40 cm Target Visit 10 OT Problem 3 OT Problem #3 Impaired Range of Motion OT Goal 1 Goal / Goal Update Pt. will report increased ROM in LE as evidenced by self report of reach for donning/doffing socks, shoes and lower body dressing Target Visit 10 OT Problem 4 OT Problem #4 Pain OT Goal 1 Goal / Goal Update Pt. will report < 1/10 pain or discomfort in R LE 6 out of 7 days of the week when participating in standing activities
--- NOTE | 2025-05-20 12:41 | OTOPDC ---
Assessment and note entered by Tata Quinones, OT Evaluation Information Assessment Status Discharge - Pt Not Present Assessment OT Clinical Summary Pt. referred for R knee and LE swelling after fall resulting in continued pain and effusion, with signs and symptoms of Lymphedema. Pt. was seen for 6 treatments from 03/04/25- 03/22/25, with intermittent success in volume reduction, and has not return to treatment since. Pt. is discharged from services on this date. Plan of Care OT Services Indicated No
== END 2025-05-20 15:20 | disposition home or self-care (01) ==
LOC: ANHOT 12:30
PROVIDERS: PCP Internal Medicine; Visit Provider Internal Medicine
DX: R60.9 Edema, unspecified (principal)
CPT/HCPCS: 29581; 97016; 97140; 97165; 97530; 97535; 97760

== ENCOUNTER 2025-07-09 11:34 | Outpatient (CLI) | payer MEDICARE, OTHER, SELFPAY ==
--- NOTE | ~2025-07-09 | XR_ITS ---
XR lumbar spine 2-3V Indication: M25.559 - Pain in unspecified hip Comparison: None Findings: Moderate loss of vertebral height throughout. Grade 1 retrolisthesis of L1 on L2 and L2 on L3, no acute fracture identified. Moderate to severe loss of disc height throughout. Soft tissues unremarkable Impression: No acute abnormality. Reviewed, dictated and finalized at location P. Impression: No acute abnormality.
--- NOTE | ~2025-07-09 | XR_ITS ---
EXAMINATION: XR hip LT 2V w AP pelvis, 07/09/2025 11:15 CDT HISTORY: M25.559 - Pain in unspecified hipNON TRAUMA L HIP PAIN COMPARISON: No comparisons available. Findings: No acute fracture or malalignment. No significant degenerative changes. Soft tissues unremarkable. Impression: No acute fracture or malalignment. Reviewed, dictated and finalized at location P. Impression: No acute fracture or malalignment.
[2025-07-09 12:57] LABS: Hematocrit 36.7 % (42.0-52.0); Hemoglobin 12.1 g/dL (14.0-18.0); Immature Granulocyte Percent A 0.3 % (0-0.5); Lymphocytes Absolute Auto 1.01 K/mm3 (0.9-3.2); Mean Corpuscular HGB Conc 33.0 g/dl (32-36); Mean Corpuscular Hemoglobin 28.5 pg (26-34); Mean Corpuscular Volume 86.6 fl (80-100); Nucleated Red Blood Cells Absolute Auto 0.000 K/mm3 (0.0-0.012); Nucleated Red Blood Cells Perc 0.0 % (0.0-0.2); Platelet Count Result 175 k/mm3 (150-375); Red Blood Count 4.24 M/mm3 (4.6-6.20); White Blood Count 6.3 K/mm3 (4.5-10.0)
--- OUTSIDE RECORDS SUMMARY | 2025-07-09 13:06 | XMS_ITS | Clinical Summary ---
Author Organization [facility] Address [address] [place] [address] Care Team Providers Care Pipe Roller Name Role Phone Corey Angel MD Primary Care Provider [phone] Clem Thomosn MD Unavailable Harman Morales MD Unavailable [phone] James Robert DO Unavailable [phone] Allergies No known active allergies Medications esomeprazole DR (NexIUM) 20 mg capsuleIndicati ons:Treatment of Non-Bleeding Gastric Disorder,gerd Take 1 capsule (20 mg total) by mouth daily before breakfast Active rosuvastatin (CRESTOR) 20 mg tabletIndicatio ns:hyperlipidem ia Take 1 tablet (20 mg total) by mouth nightly 04/21/20 21 Active icosapent ethyL (VASCEPA) 1 gram capsuleIndicati ons:hypertrigly ceridemia Take 2 capsules (2 g total) by mouth 2 (two) times a day 05/23/20 21 Active metoprolol XL (TOPROL-XL) 25 mg extended release tabletIndicatio ns:hypertension ,AAA Take 1 tablet (25 mg total) by mouth every morning Active nitroglycerin (NITROSTAT) 0.4 mg SL tabletIndicatio ns:aneursysm Place 1 tablet (0.4 mg total) under the tongue every 5 (five) minutes as needed for chest pain 04/29/20 23 Active Eliquis 5 mg tablet 10/08/19 25 Active mupirocin (BACTROBAN) 2 % ointment 02/02/20 25 Active LORazepam (ATIVAN) 1 mg tablet 03/01/20 25 Active cholecalciferol (VITAMIN D-3) 2000 unit capsule 1 capsule (2,000 Units total) Active abiraterone (ZYTIGA) 250 mg tablet Take by mouth daily Take with a full glass of water. Swallow whole. Do not eat anything for at least 2 hours before and for at least 1 hour after you have taken the medicine. Active prednisoLONE (MILLIPRED) 5 mg tablet Take by mouth Active tamsulosin (FLOMAX) 0.4 mg extended release capsule 1 capsule (0.4 mg total) Active traZODone (DESYREL) 50 mg tablet Take 1 tablet (50 mg total) by mouth nightly Active cholecalciferol 400 unit capsuleIndicati ons:supplement Take 600 Units by mouth every morning 025 Discontinued ascorbic acid (vitamin C) 1,000 mg tablet 08/07/20 24 025 Discontinued(Luis cunha Reported) semaglutide (WEGOVY) 0.25 mg/0.5 mL auto-injectorIn dications:Coron courtney artery disease involving [place]osh[place] heart without angina pectoris, unspecified vessel or lesion type,Body mass index (BMI) of 39.0 to 39.9 in adult,High risk medication use Inject 0.25 mg under the skin every 7 days Plan to increase dose after 1-2 months 2 mL 1 01/09/20 25 025 Discontinued telmisartan (MICARDIS) 20 mg tabletIndicatio ns:Essential hypertension Take 1 tablet (20 mg total) by mouth daily 90 tablet 3 01/09/20 25 025 Discontinued doxycycline 100 mg tablet 03/06/20 25 025 Discontinued Active Problems Problem Noted Date Diagnosed Date Abnormal CT of the chest 06/24/2025 Anxiety 06/24/2025 Aortic root enlargement 06/24/2025 Basal cell carcinoma 06/24/2025 Cellulitis of lower extremity 06/24/2025 Change in vision 06/24/2025 Chronic cholecystitis with calculus 06/24/2025 DJD (degenerative joint disease), multiple sites 06/24/2025 Edema of right lower extremity 06/24/2025 Elevated coronary artery calcium score Esophageal stricture 06/24/2025 Fatty liver 06/24/2025 Heart palpitations 06/24/2025 Hematuria, microscopic 06/24/2025 Hemorrhoid 06/24/2025 GERD (gastroesophageal reflux disease) Hiatal hernia 06/24/2025 Hx of colonic polyps 06/24/2025 Insomnia 06/24/2025 Hypokalemia 06/24/2025 ILD (interstitial lung disease) 06/24/2025 Indigestion 06/24/2025 Iron deficiency anemia 06/24/2025 Musculoskeletal pain of extremity 06/24/2025 Nausea and vomiting 06/24/2025 Pulmonary emboli 06/24/2025 S/P cholecystectomy 06/24/2025 Shortness of breath 06/24/2025 Sinus tachycardia 06/24/2025 Vitamin D deficiency 06/24/2025 Arthralgia of right knee 03/06/2025 Personal history of radiation therapy 11/15/2024 Prostate cancer 05/02/2024 Cancer Staging:Clinical stage from 06/28/2024:Stage IIIB(cT3b, cN0, cM0, PSA: 9.1, Grade Group: 2) - Signed by Harman Morales MD on 06/28/2024 Elevated PSA 12/19/2023 Bradycardia 12/09/2023 Aortic valve calcification 07/16/2022 Hypercholesterolemia 07/16/2022 Coronary artery disease due to calcified coronar y lesion 07/13/2022 Ascending aortic aneurysm 06/19/2021 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 - Left 05/30/2018 Knee pain 04/22/2016 Encounters Date Type Department Care Team Description 07/02/2025 Orders Only [facility] Health Information Management [address] [place] [address] Scanning, Provider 06/24/2025 1:45 PM CDT Office Visit [facility] Cardiology at [address] [place] [address] Mauro Reilly MD Aneurysm of ascending aorta without rupture (Primary Dx); Need for lipid screening 06/20/2025 Telephone [facility] Cardiology [address] [place] [address] Tracy [place] MA Upcoming Appt 06/20/2025 Telephone [facility] Cardiology [address] [place] [address] Tracy [place] MA Request for medical request 06/17/2025 Telephone [facility] Medicine Cardiology [address] [facility] Advanced Medicine 8th [place] [address] [place] [address] Albino Yanez MD wegovy 06/13/2025 Telephone [facility] Medicine Cardiothoracic Surgery [address] [facility] 8th Floor [address] Room [phone] [place] [address] Eusebia Coleman MD 06/11/2025 Telephone [facility] Cardiology [address] [facility] 8th [place] [address] [place] [address] Kim Sewell 06/04/2025 Telephone [facility] Cardiology [address] [place] [address] Mauro Reilly MD 05/17/2025 2:15 PM CDT Lab [address] [address] Prostate cancer (HCC) 05/16/2025 Orders Only [facility] Building 2 Radiation Oncology [address] [place] [address] Yanci Garcia PA Prostate cancer (HCC) (Primary Dx) from Last 3 Months Immunizations Immunization Administration Dates Next Due Influenza, Trivalent, IM (MDV) 09/08/2016 Surgical History Surgery Date Site/Laterality Comments HEMORROIDECTOMY 09/26/1989 - 09/25/1990 COLONOSCOPY 09/26/2022 - 09/25/2023 CHOLECYSTECTOMY 09/26/2019 - 09/25/2020 PROSTATE BIOPSY MOHS SURGERY x2 KNEE ARTHROCENTESIS 03/06/2025 Right Medical History Medical History Date Comments Ascending aortic aneurysm Iron deficiency anemia Fatty liver Hiatal hernia Prostate cancer (HCC) Skin cancer Cellulitis Nausea and vomiting 06/24/2025 Family History Medical History Relation Name Comments [...] on file Legal Sex Male 2:49 AM 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 SCIENCE PROFESSOR Gender Identity Male 05/22/2018 10:57 AM CDT Sexual Orientation Straight 11/03/2020 7: 01 PM LIBRARY SCIENCE PROFESSOR Occupation Industry Job Start Date Job End Date working Not on file 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 on 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 Not on file Not o n file Obstetrics History Last Filed Vital Signs Vital Sign Reading Time Taken Comments Blood Pressure 118/80 06/24/2025 1:37 PM CDT Pulse 94 06/24/2025 1:37 PM CDT Temperature 36.3 C (97.4 F) 03/08/2025 10:30 AM CDT Respiratory Rate 18 03/08/2025 10:3 0 AM CDT Oxygen Saturation 98% 06/24/2025 1:37 PM CDT Inhaled Oxygen Concentration - - Weight 127.6 kg (281 lb 4.8 oz) 06/24/2025 1:37 PM CDT Height 182.9 cm (6') 06/24/2025 1:37 PM CDT Body Mass Index 38.15 06/24/2025 1:37 PM CDT Plan of Treatment Health Maintenance Due Date Last Done Comments Colon Cancer Screening-Colonoscopy 1950 Depression Screening 1950 Hepatitis C Screening 1950 DTaP/Tdap/Td Vaccine (1 - Tdap) 1962 Hepatitis B Screening 1969 Well Visit 65+ 2016 Covid-19 Vaccine (4 - 2024-2 6 season) 2025 08/12/2021, 12/13/2020, 11/20/2020 Influenza Vaccine (#1) 2025 4, 06/27/2023, 07/08/2022, Additional history exists Fall Risk Assessment 06/28/2025 06/28/2024, 04/30/20 Pneumococcal vaccine 65+ Completed 08/13/2022 Zoster Vaccine Completed 04/12/2023, 11/24, 06/13/2016 Prostate Cancer Screening-PSA Discontinued , 02/04/2025, 11/22/2024, Additional history exists Procedures Procedure Name Priority Date/Time Associated Diagnosis Comments CARDIOLOGY DOCUMENT SCAN 07/02/2025 9:28 PM CDT POCT LIPID PANEL Routine 06/24/2025 2:23 PM CDT Need for lipid screening ECG 12-LEAD Routine 06/24/2025 1:43 PM CDT Aneurysm of ascending aorta without rupture PSA DIAGNOSTIC Routine 05/17/2025 2:20 PM CDT Prostate cancer (HCC) TOTAL TESTOSTERONE Routine 05/17/2025 2: 20 PM CDT Prostate cancer (HCC) from Last 3 Months Results * Cardiology Document Scan (07/02/2025 9:28 PM CDT) Anatomical Region Laterality Modality Other us Provider Scanning CV CARDIAC SERVICES PROCEDURES Final Result * (ABNORMAL) POCT lipid panel (06/24/2025 2:23 PM CDT) Cholesterol, POC 129 <200 MG/DL HDL, POC 42 >=40 mg/dL Triglycerides, POC 156(A) <=149 mg/dL LDL Cholesterol POC 56 <=129 mg/dL Chol/HDL Ratio, POC 3.1 NONE Non-HDL Cholesterol, POC 87 NONE mg/dL Cholesterol Total, POC 129 30 - 199 mg/dL Capillary blood 06/24/2025 2 :23 PM CDT Mauro Reilly MD POINT OF CARE TEST ORDER ALPHONSE Final Result * ECG 12 lead (06/24/2025 1:43 PM CDT) Mauro Reilly MD ECG ORDERABLES Final Re sult * (ABNORMAL) Total testosterone (05/17/2025 2:20 PM CDT) Testosterone 7.06(L) 193.00 - 740.00 ng/dL Blood 05/17/2025 2:20 PM CDT 05/17/2025 5:49 PM CDT Yanci TAN LAB BLOOD ORDERABLES Final Result [facility] [address] [facility] Department [place] [address] * PSA diagnostic (05/17/2025 2:20 PM CDT) PSA-Total <0.10 <=6.20 ng/mL Comment: Interpretive Data AGE SEX [...] Current interpretive data last revised 22. Blood 05/17/2025 2:20 PM CDT 05/17/2025 5:49 PM CDT Yanci TAN LAB BLOOD ORDERABLES Final Result [facility] [address] [facility] [place] [address] from Last 3 Months Insurance FOR LIFE HU[employer] CHOICE MEDICARE PPO MEDICARE FOR LIFE [employer] LIFE HU[employer] CHOICE MEDICARE PPO Care Teams Pipe Roller Relationship Specialty Start Date End Date Corey Angel MD PCP - General Internal Medicine 06/18/21 Clem Thomson MD [address] [place] [address] Referring Physician Urology 06/14/24 Harman Morales MD [address] [place] [address] Radiation Oncologist Radiation Oncology 06/22/24 James Robert DO [address] [place] [address] MEDICAL ONCOLOGY, [address] [address] Medical Oncologist/Content Publisher Hematology and Oncology 07/12/24
--- OUTSIDE RECORDS SUMMARY | 2025-07-09 13:06 | XMS_ITS | Clinical Summary ---
Author Organization [facility] Address [address] [place] [address] Care Team Providers Care Dehorner Name Role Phone Corey Angel MD Primary Care Provider [phone] Allergies No known active allergies Medications rosuvastatin [...] Squamous cell carcinoma of skin of left mu-ism 0 05/30/2018 Knee pain 04/22/2016 Resolved Problems [...] 11:02 AM CDT Height 180.3 cm (5' 11) 12/09/2023 11: 02 AM CDT Body Mass [...] Wellness Visit 2016 COVID-19 Vaccine ( season) 2025 08/12/2021, 12/13/2020, 11/20/2020 Influenza Adult (#1) 2025 07/27/2023, 07/30/2022, 08/15/2019, Additional history exists Pneumococcal Vaccine: 50+ Years Completed 08/13/2022 Meningococcal B Vaccine Aged Out No l onger eligible based on patient's age to complete this topic Meningococcal Vaccine Aged Out No elsa barrett eligible based on patient's age to complete this topic RSV Immunizations Under 20 Months Aged Out No longer eligible based on patient's age to complete this topic Insurance HUMANA HUMANA MEDICARE Care Teams Dehorner Relationship Specialty Start Date End Date Corey Angel MD [address] [place] [id number] PCP - General INTERNAL MEDICINE 02/25/21
--- OUTSIDE RECORDS SUMMARY | 2025-07-09 13:06 | XMS_ITS ---
Author Organization [facility] Address [address] [place] [address] Care Team Providers Care Server Software Engineer Name Role Phone Corey Angel MD Primary Care Provider [phone] Clem Thomson MD Unavailable Harman Morales MD Unavailable [phone] James Robert DO Unavailable [phone] Active Problems Problem Noted Date Diagnosed Date [...] Squamous cell carcinoma of skin of left shinto - Left 05/30/2018 Knee pain 04/22/2016 Current [...] Cycles Abiraterone / PredniSONE 28 Day Cycles 08/10/20 24 12/06/2024 abiraterone (ZYTIGA) Toxicity/Compl ication James Robert, DO [...]
--- OUTSIDE RECORDS SUMMARY | 2025-07-09 13:06 | XMS_ITS | Clinical Summary ---
Author Organization [facility] Address [address] [address] Phone Care Team Providers Care Carton Making Machine Operator Name Role Phone Corey Angel MD Primary Care Provider [phone] Uzair Dye DO Unavailable [phone] Allergies No known active allergies Medications [...] Comments Blood Pressure 120/90 10/12/2016 12:23 PM PATTERN CHANGER AND REPAIRER Pulse 79 10/12/2016 12:23 PM PATTERN CHANGER AND REPAIRER Temperature 36.1 C (96.9 F) 10/12/2016 12:23 PM PATTERN CHANGER AND REPAIRER Respiratory Rate 14 10/12/2016 12:23 PM PATTERN CHANGER AND REPAIRER Oxygen Saturation 94% 10/12/2016 12:23 PM PATTERN CHANGER AND REPAIRER Inhaled Oxygen Concentration - - Weight 117.5 kg (259 lb) 10/12/2016 12:23 PM PATTERN CHANGER AND REPAIRER Height 177.8 cm (5' 10) 10/12/2016 12:23 PM PATTERN CHANGER AND REPAIRER Body Mass Index 37.16 10/12/2016 12:23 PM PATTERN CHANGER AND REPAIRER Plan of Treatment Health Maintenance Due Date Last Done Comments Hepatitis C Virus (HCV) Screening 1950 TdaP Immunization 1950 Cologuard 1996 Immunochemical Fecal Occult Blood 1996 Pneumococcal Immunization (50+ years) (1 of 1 - PCV) 2001 Zoster Immunization (2 of 3) 08/08/2016 06/13/2016 Medicare Initial AWV [id number] 10/27/2017 Influenza Immunization (#1) 05/27/202506/27, 08/15/2019, 07/23/2018, Additional history exists SARS-COV-2 Immunization ( season) 2025 08/12/2021, 12/13/2020, 11/20/2020 Colonoscopy 04/01/2026 04/01/2016 Colorectal Cancer Screening 04/01/2026 Respiratory Syncytial Virus (RSV) Immunization (Adult) (1 - 1-dose 75+ series) 2026 Hepatitis B Immunization Aged Out No longer eligible based on patient's age to complete this topic Human Papillomavirus (HPV) Immunization Aged Out No longer eligible based [...] Health Maintenance Results * HM COLONOSCOPY (04/01/2016) us Corey Angel MD PROCEDURE/MINOR SURGICAL ORDER ALPHONSE Final Result from Last 3 Months or Most Recently Relevant to Health Maintenance Insurance MEDICARE [facility] Care Teams Carton Making Machine Operator Relationship Specialty Start Date End Date Corey Angel MD PCP - General Internal Medicine 03/31/16 Uzair Dye DO Gastroenterology 03/31/16
--- OUTSIDE RECORDS SUMMARY | 2025-07-09 13:06 | XMS_ITS | Encounter Summary ---
Author Organization [facility] Address [facility] [place] [address] Care Team Providers Care Mailing Machine Assistant Name Role Phone Corey Angel MD Primary Care Provider [phone] Encounter Details Date Type Department Care Team (Latest Contact Info) Description 01/18/2024 [employer] Communicationst Message [facility]-[address] [address] Diego Muse MD [address] [place] [address] [address] [place] [phone] Heart Monitor Status Social History Tobacco Use [...] on filedocumented in this encounter Care Teams Mailing Machine Assistant Relationship Specialty Start Date End Date Corey Angel MD [address] [place] [phone] PCP - General INTERNAL MEDICINE 02/25/21 documented as of this encounter
--- OUTSIDE RECORDS SUMMARY | 2025-07-09 13:06 | XMS_ITS | Encounter Summary ---
Author Organization [facility] Address [facility] [place] [address] Care Team Providers Care Cardiology Physician Assistant Name Role Phone Corey Angel MD Primary Care Provider [phone] Encounter Details Date Type Department Care Team (Late st Contact Info) Description 12/14/2022 [employer] Message [facility] [facility] [address] [address] Mychart, [facility] Provider Stress test Social History Tobacco Use [...] on filedocumented in this encounter Care Teams Cardiology Physician Assistant Relationship Specialty Start Date End Date Corey Angel MD [address] [place] [phone] PCP - General INTERNAL MEDICINE 02/25/21 documented as of this encounter
[2025-07-09 13:08] LABS: Iron 80 ug/dL (49-181)
[2025-07-09 13:23] LABS: Percent Iron Saturation 20 % (20-50)
[2025-07-09 13:26] LABS: Free T4 Free Thyroxine 0.83 ng/dL (0.78-2.19)
[2025-07-09 13:44] LABS: Ferritin 14.30 ng/mL (11.1-264)
== END 2025-07-09 11:35 | disposition home or self-care (01) ==
PROVIDERS: PCP Internal Medicine; Visit Provider Internal Medicine
DX: M25.552 Pain in left hip (principal); I10 Essential (primary) hypertension; R53.83 Other fatigue; Z79.899 Other long term (current) drug therapy; Z13.29 Encounter for screening for other suspected endocrine disorder
CPT/HCPCS: 36415; 72100; 73502; 82728; 83540; 83550; 84439; 85025